=== PATIENT | male | born 1935 | race Caucasian/White ===

== ENCOUNTER 2016-06-04 12:18 | Inpatient (IN) | payer MEDICARE, OTHER ==
--- NOTE | 2016-06-04 12:46 | ERPHSYRPT ---
- History of Present Illness Time Seen by Provider: 06/04/16 12:41 Source: patient Exam Limitations: no limitations Physician History: The patient is a 80-year-old male who was seen today by Dr. Sheppard at [facility] who calls me with history of the patient. The patient has right lower leg infection and swelling for the past 4 months that has become worse over the last [address] SHEPPARD recommends that the patient be hospitalized here at [facility] and be given vancomycin and Zosyn IV for the lower right leg infection. The patient states his leg is much more swollen, red, and warm over the last few days. He denies any fever or chills. His past medical history is significant for stroke, diabetes, hypertension, and high cholesterolemia. Method of Injury: other (cellulitis) Occurred: other (4 months) Quality: other (red and swollen) Severity of Pain-Max: mild Severity of Pain-Current: mild Lower Extremities Pain: foot: right, ankle: right, heel: right, 3rd toe: right, 4th toe: right, 5th toe: right Modifying Factors: Improves With: other (antibiotics) Allergies/Adverse Reactions: No Known Allergies Allergy (Verified 06/04/16 12:43) Home Medications: Gabapentin 0 mg PO UD 06/04/16 [History] Lisinopril 10 mg [Zestril 10 MG] 10 mg PO DAILY 06/04/16 [History] - Review of Systems Constitutional: No Fever, No Chills Eyes: No Symptoms Ears, Nose, & Throat: No Symptoms Respiratory: No Cough, No Dyspnea Cardiac: No Chest Pain, No Edema, No Syncope Abdominal/Gastrointestinal: No Abdominal Pain, No Nausea, No Vomiting, No Diarrhea Genitourinary Symptoms: No Dysuria Musculoskeletal: No Back Pain, No Neck Pain Skin: Cellulitis, Dryness Neurological: No Dizziness, No Focal Weakness, No Sensory Changes Psychological: No Symptoms Endocrine: No Symptoms Hematologic/Lymphatic: No Symptoms Immunological/Allergic: No Symptoms All Other Systems: Reviewed and Negative - Past Medical History Pertinent Past Medical History: Yes Neurological History: Stroke ENT History: No Pertinent History Cardiac History: High Cholesterol, Hypertension Respiratory History: No Pertinent History Endocrine Medical History: Adrenal Insufficiency, Diabetes Type II Musculoskeletal History: No Pertinent History GI Medical History: No Pertinent History History: No Pertinent History Psycho-Social History: No Pertinent History Other Medical History: CVA 10 YEARS AGO W/ MOST SX RESOLVED. PT. ADMITS SOME BALANCE DEFICITS. - Past Surgical History Past Surgical History: No Neuro Surgical History: No Pertinent History Cardiac: No Pertinent History Respiratory: No Pertinent History Gastrointestinal: No Pertinent History Genitourinary: No Pertinent History Musculoskeletal: No Pertinent History Male Surgical History: No Pertinent History - Social History Drug Use: none - Nursing Vital Signs Nursing Vital Signs: Initial Vital Signs Temperature 97.5 F Temperature Source Oral Pulse Rate 90 Respiratory Rate 14 Blood Pressure [Left Arm] 151/68 Pain Intensity 5 - Physical Exam General Appearance: alert Eyes, Ears, Nose, Throat Exam: moist mucous membranes Neck Exam: non-tender, supple Cardiovascular/Respiratory Exam: chest non-tender, normal breath sounds, regular rate/rhythm, no respiratory distress, murmur Gastrointestinal/Abdominal Exam: non-tender, guarding Back Exam: normal inspection, No vertebral tenderness Knees Exam: right knee: pain, soft tissue tenderness, swelling, other (erythema) Ankle Exam: right ankle: limited range of motion, pain, soft tissue tenderness, swelling, other (erythema) Foot Exam: right foot: pain, soft tissue tenderness, swelling Neuro/Tendon Exam: normal sensation, normal motor functions Mental Status Exam: alert, oriented x 3, cooperative Skin Exam: warm, dry, decubitus (open wound at base of right 3rd, 4th, and 5th toes) SpO2 Interpretation: normal SpO2: 94 Oxygen Delivery: Room Air Ordered Tests: Active Orders 24 hr Category Date Time Status IV Insertion STAT Care 06/04/16 12:49 Active BLOOD CULTURE Stat Lab 06/04/16 13:00 Received CBC W DIFF Stat Lab 06/04/16 13:00 Completed CMP Stat Lab 06/04/16 13:00 Completed Lactic Acid Urgent Lab 06/04/16 13:10 Completed UA W/ MICROSCOPIC Stat Lab 06/04/16 13:15 Completed Medication Summary Generic Name Dose Route Start Last Admin Trade Name Freq PRN Reason Stop Dose Admin Sodium Chloride 1,000 mls @ 100 mls/hr 06/04/16 13:00 06/04/16 13:17 Sodium Chloride 0.9% 1000 Ml IV 07/04/16 12:59 100 mls/hr .Q10H AMBERLY Administration Discontinued Medications Generic Name Dose Route Start Last Admin Trade Name Freq PRN Reason Stop Dose Admin Sodium Chloride Confirm 06/04/16 13:16 Sodium Chloride 0.9% 1000 Ml Administered 06/04/16 13:17 Dose 1,000 mls @ .[facility] Lab/Rad Data: Laboratory Result Diagrams 06/04/16 13:00 06/04/16 13:00 Laboratory Results 06/04/16 06/04/16 06/04/16 Range/Units 13:15 13:10 13:00 WBC (4.0-10.5) K/mm3 RBC (4.1-5.6) M/mm3 Hgb (12.5-18.0) gm/dl Hct (42-50) % MCV (78-100) fl MCH (26-32) pg MCHC (32-36) g/dl RDW (11.5-14.0) % Plt Count (150-450) K/mm3 MPV (6-9.5) fl Gran % (36.0-66.0) % Lymphocytes % (24.0-44.0) % Monocytes % (0.0-12.0) % Eosinophils % (0.00-5.0) % Basophils % (0.0-0.4) % Basophils # (0-0.4) Sodium 134 L (136-145) mEq/L Potassium 4.1 (3.5-5.1) mEq/L Chloride 100 (98-107) mEq/L Carbon Dioxide 23.2 (21-32) mEq/L Anion Gap 15.0 (5-15) MEQ/L BUN 28 H (9-20) mg/dL Creatinine 1.78 H (0.55-1.30) mg/dl Estimated GFR 39 ML/MIN Glucose 231 H (70-110) MG/DL Lactic Acid 1.1 (0.4-2.0) Calcium 9.2 (8.5-10.1) mg/dL Total Bilirubin 0.7 (0.2-1.0) mg/dL AST 18 (15-37) U/L ALT 10 L (12-78) U/L Alkaline Phosphatase 85 (46-116) U/L Serum Total Protein 7.2 (6.4-8.2) gm/dL Albumin 3.2 L (3.4-5.0) g/dL Ur Collection Type VOID Urine Color YELLOW (YELLOW) Urine Appearance CLEAR (CLEAR) Urine pH 5.0 (5-6) Ur Specific [place] 1.015 (1.005-1.025) Urine Protein 100 (Negative) Urine Glucose (UA) 100 (NEGATIVE) mg/dL Urine Ketones NEGATIVE (NEGATIVE) Urine Nitrite NEGATIVE (NEGATIVE) Urine Bilirubin SMALL (NEGATIVE) Urine Urobilinogen 0.2 (0-1) mg/dL Urine WBC (Auto) NEGATIVE (NEGATIVE) Urine RBC (Auto) MODERATE (0-5) Pérez/ul Urine Microscopic RBC 2-5 (0-2) /HPF Urine Microscopic WBC 0-2 (0-5) /HPF Ur Epithelial Cells FEW (FEW) /HPF Urine Bacteria FEW (NEGATIVE) /HPF Hyaline Casts 10-25 (0-2) /LPF Specimen Received 06/04/16 1315 06/04/16 Range/Units 13:00 WBC 5.0 (4.0-10.5) K/mm3 RBC 3.85 L (4.1-5.6) M/mm3 Hgb 10.9 L (12.5-18.0) gm/dl Hct 33.7 L (42-50) % MCV 87.5 (78-100) fl MCH 28.3 (26-32) pg MCHC 32.3 (32-36) g/dl RDW 15.1 H (11.5-14.0) % Plt Count 194 (150-450) K/mm3 MPV 9.7 H (6-9.5) fl Gran % 71.0 H (36.0-66.0) % Lymphocytes % 13.5 L (24.0-44.0) % Monocytes % 12.1 H (0.0-12.0) % Eosinophils % 3.0 (0.00-5.0) % Basophils % 0.4 (0.0-0.4) % Basophils # 0.02 (0-0.4) Sodium (136-145) mEq/L Potassium (3.5-5.1) mEq/L Chloride (98-107) mEq/L Carbon Dioxide (21-32) mEq/L Anion Gap (5-15) MEQ/L BUN (9-20) mg/dL Creatinine (0.55-1.30) mg/dl Estimated GFR ML/MIN Glucose (70-110) MG/DL Lactic Acid (0.4-2.0) Calcium (8.5-10.1) mg/dL Total Bilirubin (0.2-1.0) mg/dL AST (15-37) U/L ALT (12-78) U/L Alkaline Phosphatase (46-116) U/L Serum Total Protein (6.4-8.2) gm/dL Albumin (3.4-5.0) g/dL Ur Collection Type Urine Color (YELLOW) Urine Appearance (CLEAR) Urine pH (5-6) Ur Specific [place] (1.005-1.025) Urine Protein (Negative) Urine Glucose (UA) (NEGATIVE) mg/dL Urine Ketones (NEGATIVE) Urine Nitrite (NEGATIVE) Urine Bilirubin (NEGATIVE) Urine Urobilinogen (0-1) mg/dL Urine WBC (Auto) (NEGATIVE) Urine RBC (Auto) (0-5) Pérez/ul Urine Microscopic RBC (0-2) /HPF Urine Microscopic WBC (0-5) /HPF Ur Epithelial Cells (FEW) /HPF Urine Bacteria (NEGATIVE) /HPF Hyaline Casts (0-2) /LPF Specimen Received - Progress Progress: unchanged Discussed with .: Sven Will see patient in: hospital (full admit) (Dr Machuca accepts pt for admission and antibiotics as recommended by Dr Sheppard.) Counseled pt/family regarding: lab results, diagnosis, rad results - Departure Time of Disposition: 14:25 Departure Disposition: In-patient Admission (per Dr Machuca) Clinical Impression: Cellulitis Condition: Stable Critical Care Time: No
[2016-06-04 13:14] LABS: BASOPHIL % 0.4 % (0.0-0.4); Lymphocytes % 13.5 % (24.0-44.0); Mean Cell Volume 87.5 fl (78-100); Mean Corpuscular Hemoglobin 28.3 pg (26-32); Mean Platelet Volume 9.7 fl (6-9.5); Monocytes % 12.1 % (0.0-12.0); Platelet Count 194 K/mm3 (150-450); Red Blood Count 3.85 M/mm3 (4.1-5.6); Red Cell Distribution Width 15.1 % (11.5-14.0)
[2016-06-04] MEDS ORDERED: Sodium Chloride 0.9% 1000 ML 1,000 ML ONE (13:16)
[2016-06-04] MEDS: Sodium Chloride 0.9% 1000 ML 1,000 ML IV SCH ×2 (13:17→15:39)
[2016-06-04 13:34] LABS: ALBUMIN 3.2 g/dL (3.4-5.0); BILIRUBIN,TOTAL 0.7 mg/dL (0.2-1.0); Carbon Dioxide 23.2 mEq/L (21-32); Potassium 4.1 mEq/L (3.5-5.1); Total Protein 7.2 gm/dL (6.4-8.2)
[2016-06-04 13:41] LABS: Bacteria FEW /HPF (NEGATIVE); COMPLETE URINE MICROSCOPIC? YES; Collection Type VOID; Epithelial Cells FEW /HPF (FEW); WBC 0-2 /HPF (0-5)
[2016-06-04] MEDS ORDERED: PHARMACY DOSING REQUIRED: VANCOMYCIN IV ONE (14:53)
[2016-06-04] MEDS ORDERED: TYLENOL 325 MG PO PRN (14:53)
[2016-06-04] MEDS: Zosyn 3.375GM/100 Ml D5W 100 ML IV SCH ×2 (15:39→23:31)
[2016-06-04] MEDS: VANCOCIN 1 GM VIAL*** 1 GM in Sodium Chloride 0.9% 250 ML 250 ML IV SCH (17:04)
[2016-06-04] MEDS: NovoLOG Insulin SQ PRN ×2 (17:34→23:47)
[2016-06-04] MEDS: ULTRAM 50 MG PO PRN (18:28)
[2016-06-04] MEDS: Lantus Insulin SQ SCH (21:16)
[2016-06-04] MEDS: ZOCOR 20MG PO SCH (21:16)
[2016-06-04] MEDS: NEURONTIN 300 MG PO SCH (21:16)
[2016-06-04] MEDS ORDERED: NON-FORMULARY ITEM (Atorvastatin Calcium [Atorvastatin Calcium] 40 MG) PO SCH (22:00)
[2016-06-05 05:20] LABS: BASOPHIL % 0.5 % (0.0-0.4); Eosinophil % 4.7 % (0.00-5.0); Granulocytes % 63.4 % (36.0-66.0); Lymphocytes % 16.9 % (24.0-44.0); Mean Platelet Volume 9.8 fl (6-9.5); Monocytes % 14.5 % (0.0-12.0); Platelet Count 179 K/mm3 (150-450); Red Blood Count 3.47 M/mm3 (4.1-5.6); Red Cell Distribution Width 15.1 % (11.5-14.0); White Blood Count 4.3 K/mm3 (4.0-10.5)
[2016-06-05 05:28] LABS: ANION GAP 12.5 MEQ/L (5-15); Carbon Dioxide 24.7 mEq/L (21-32); Mean Corpuscular Hemoglobin 27.3 pg (26-32); Potassium 3.9 mEq/L (3.5-5.1)
[2016-06-05] MEDS: Sodium Chloride 0.9% 1000 ML 1,000 ML IV SCH (06:04)
[2016-06-05] MEDS: Zosyn 3.375GM/100 Ml D5W 100 ML IV SCH ×4 (06:04→23:40)
[2016-06-05] MEDS ORDERED: Lantus Insulin SQ SCH (08:00)
[2016-06-05] MEDS ORDERED: TYLENOL EXTRA STRENGTH 500 MG PO PRN (08:37)
[2016-06-05] MEDS ORDERED: Zofran 4 MG/2 ML VIAL IV PRN (08:41)
--- NOTE | 2016-06-05 09:20 | HP ---
CHIEF COMPLAINT: Cellulitis right lower extremity. HISTORY OF PRESENT ILLNESS: The patient is a 80 y/o WM patient who reports he developed cellulitis of his right lower extremity. He had been treated outpatient with Cipro for the past 2 days, but he had been getting worse. He was seen by Dr. Sheppard of Infectious Disease at [facility] who felt the patient needed to be admitted for IV antibiotics and referred him here for Zosyn and vancomycin treatment. The patient was initially evaluated in the Emergency Room and admitted to the hospital for the above treatment. PAST MEDICAL HISTORY: Significant for type 2 diabetes mellitus. The patient previously also had a cerebrovascular accident. He has hyperlipidemia. He has had depression. HOME MEDICATIONS: Currently include atorvastatin 40 mg a day, ciprofloxacin 500 mg bid, citalopram 10 mg a day, Plavix 75 mg bid, doxycycline 100 mg bid, Lasix 40 mg a day, gabapentin 600 mg tid. He is on insulin treatments for his diabetes, lisinopril 10 mg a day, metoprolol 150 mg a day, tramadol 50 mg q 4 h PRN for pain. PHYSICAL EXAMINATION: Reveals an elderly WM patient who is currently having rigorous chills and some nausea. His most recent set of vital signs shows a temperature of 97.6, pulse 85, respiratory rate 20, BP 172/74, O2 saturation 94% on room air. HEENT: Normocephalic and atraumatic. Pupils equal, round, and reactive to light. Extraocular movements intact. Oropharynx is pink and moist. NECK: Supple without lymphadenopathy, thyromegaly, or JVD. CHEST: Clear to auscultation. HEART: Regular rate and rhythm without murmurs, rubs, or gallops. ABDOMEN: Soft, nontender, nondistended without hepatosplenomegaly or masses. EXTREMITIES: Revealed the right lower extremity to be swollen, edematous, and dusky. The left is also dusky, but the right also has some cracks in the skin approximately [address] the leg. It is warm and somewhat red. NEURO: The patient is alert and oriented X 3. No focal deficits noted. LABORATORY STUDIES: In the Emergency Room, reveals UA which is essentially normal, although he does have 10-25 hyaline casts. His lactic acid was 1.1. His metabolic panel showed a nonfasting sugar of 231, BUN 28, creatinine 1.78. Sodium was slightly low at 134. His liver enzymes were normal. CBC showed a WBC of 5000, Hgb 10.9, platelet count 194,000. ASSESSMENT: 1. THE PATIENT WITH CELLULITIS, POSSIBLE PENDING SEPSIS. He has been admitted to the hospital. We will discontinue his Cipro and doxycycline and place him on Zosyn and vancomycin. We will obtain blood cultures as well. He has been placed on his usual home medications for his diabetes. We will also obtain a venous Doppler of the right lower extremity as well as arterial Doppler studies of the lower extremities to further assess his vascular status.
[2016-06-05] MEDS: ceLEXa 20 MG PO SCH (09:23)
[2016-06-05] MEDS: PLAVIX 75 MG Tablet PO SCH (09:24)
[2016-06-05] MEDS: Lasix 40 MG PO SCH (09:24)
[2016-06-05] MEDS: Toprol Xl 50 MG PO SCH (09:24)
[2016-06-05] MEDS: Toprol Xl 100 MG PO SCH (09:24)
[2016-06-05] MEDS: NEURONTIN 300 MG PO SCH ×3 (09:25→22:42)
[2016-06-05] MEDS ORDERED: METOPROLOL TARTRATE 150 MG PO SCH (10:00)
[2016-06-05] MEDS ORDERED: Zestril 5 MG PO SCH (10:00)
[2016-06-05] MEDS ORDERED: Zestril 10 MG PO SCH (10:00)
[2016-06-05] MEDS ORDERED: NON-FORMULARY ITEM (Citalopram Hydrobromide [Celexa] 10 MG) PO SCH (10:00)
[2016-06-05] MEDS: ENOXAPARIN SODIUM SQ SCH (10:57)
--- NOTE | 2016-06-05 11:15 | XRAY ---
Indication: Bilateral edema, pain, and redness. Two-dimensional sonogram and color Doppler imaging of the major venous vessels of the left and right leg was performed. Comparison: Right leg venous ultrasound of December 25, 2015. No thrombus seen in the examined deep venous vessels of the left and right leg including greater saphenous vein. Veins demonstrate normal compressibility. Venous waveforms are normal with and without augmentation. Impression: Left and right leg negative for DVT.
--- NOTE | 2016-06-05 11:21 | XRAY ---
Indication: Bilateral edema, pain, and redness. Two-dimensional sonogram and color Doppler imaging of the major arteries of the left and right leg was performed. Comparison: Right leg arterial ultrasound of December 25, 2015. Examination of the right leg again demonstrates scattered mild arteriosclerotic disease in the common femoral, superficial femoral, popliteal, posterior tibial, and dorsal pedal arteries. No critical stenosis or obstruction. Arterial waveforms again monophasic throughout. The posterior tibial and dorsal pedal arterial waveforms are again attenuated. Examination of the left leg also demonstrates scattered minimal/mild arteriosclerotic disease in the common femoral, superficial femoral, popliteal, posterior tibial, and dorsal pedal arteries without critical stenosis/obstruction. Arterial waveforms are multiphasic in the common femoral, superficial femoral, and popliteal arteries and monophasic in the posterior tibial and dorsal pedal arteries. Ankle brachial indices not performed due to bilateral cellulitis and patient inability to tolerate. Impression: Scattered arteriosclerotic disease, right leg greater than left. No critical stenosis/obstruction.
[2016-06-05] MEDS: VANCOCIN 1 GM VIAL*** 1 GM in Sodium Chloride 0.9% 250 ML 250 ML IV SCH (16:42)
[2016-06-05] MEDS: NovoLOG Insulin SQ PRN ×2 (16:43→22:52)
[2016-06-05] MEDS: ZOCOR 20MG PO SCH (22:42)
[2016-06-05] MEDS: Lantus Insulin SQ SCH (22:44)
[2016-06-06] MEDS: Zosyn 3.375GM/100 Ml D5W 100 ML IV SCH ×4 (05:17→23:54)
[2016-06-06 05:57] LABS: BASOPHIL % 0.3 % (0.0-0.4); Granulocytes % 67.8 % (36.0-66.0); Lymphocytes % 17.3 % (24.0-44.0); Mean Cell Volume 89.1 fl (78-100); Mean Corpuscular Hemoglobin 28.5 pg (26-32); Mean Platelet Volume 9.6 fl (6-9.5); Monocytes % 10.6 % (0.0-12.0); Platelet Count 193 K/mm3 (150-450); White Blood Count 6.5 K/mm3 (4.0-10.5)
[2016-06-06 06:20] LABS: ALBUMIN 2.5 g/dL (3.4-5.0); ALKALINE PHOSPHATASE 63 U/L (46-116); ANION GAP 9.6 MEQ/L (5-15); BILIRUBIN,TOTAL 0.4 mg/dL (0.2-1.0); BLOOD UREA NITROGEN 18 mg/dL (9-20); CHLORIDE 107 mEq/L (98-107); Carbon Dioxide 28.5 mEq/L (21-32); Potassium 4.1 mEq/L (3.5-5.1); SGOT/AST 13 U/L (15-37); SODIUM 141 mEq/L (136-145); Total Protein 6.1 gm/dL (6.4-8.2)
[2016-06-06 07:19] LABS: Glucose 37 MG/DL (70-110); SGPT/ALT < 6 U/L (12-78)
--- NOTE | 2016-06-06 08:41 | PCM.NOTE ---
Date and Time: 06/06/16 0835 Subjective Assessment: He reports on last Wednesday he had a fall at home that resulted in the skin tears of his right elbow. he states that his right leg is improving as the color is better and it is not as swollen. He saw his infectious disease doctor, Dr. Sheppard, on Wednesday. He reports he rarely takes short acting insulin at home but does take the lantus. He thinks his diet is different here. He has now had hypoglycemia two mornings in a row. He is alert and talkative and the nurses say he was asymptomatic. At home he takes lantus two times a day. - Review of Systems Constitutional: No Symptoms Eyes: No Symptoms Respiratory: No Symptoms Cardiac: No Symptoms Abdominal/Gastrointestinal: No Symptoms Genitourinary Symptoms: No Symptoms Musculoskeletal: No Symptoms Skin: Cellulitis, Other (swelling and tenderness of right lower leg and foot and erythema also) Objective Exam General Appearance: no apparent distress, alert Neurologic Exam: alert, cooperative, normal mood/affect Skin Exam: normal color, warm, dry, other (swelling and redness of his legs with worse swelling of right, dressing on dorsal aspect of his toes, no active induration or drainage.) Eye Exam: post op pupil defect (L) OBJECTIVE DATA Vital Signs: Vital Signs - 24 hr Temp Pulse Resp BP Pulse Ox 06/06/16 07:29 98.2 F 74 22 168/88 95 06/06/16 04:59 98.1 F 63 16 186/86 94 L 06/06/16 00:07 97.7 F 76 16 175/71 94 L 06/05/16 21:00 97.8 F 76 15 139/62 94 L 06/05/16 15:57 98 F 68 20 108/56 97 06/05/16 12:49 98.1 F 70 20 106/50 95 Oxygen-Last 24 hours O2 Percentage 2 Liters = 28% O2 Percentage 2 Liters = 28% Pain Assessment - Last Documented Pain Intensity 0 Pain Scale Used 0-10 Pain Scale Intake and Output: Intake & Output 06/04/16 06/05/16 06/06/16 06/07/16 06:59 06:59 06:59 07:59 Intake Total 1209 3081 Output Total 475 1000 Balance 734 2081 Weight 99.337 kg Lab Results: Accuchecks Date 06/05/16 Accucheck Value: 204 Accucheck Value: 208 Accucheck Value: 190 Lab Results-Last 24 Hours 06/06/16 06/06/16 Range/Units 05:45 05:45 WBC 6.5 (4.0-10.5) K/mm3 RBC 3.40 L (4.1-5.6) M/mm3 Hgb 9.7 L (12.5-18.0) gm/dl Hct 30.3 L (42-50) % MCV 89.1 (78-100) fl MCH 28.5 (26-32) pg MCHC 32.0 (32-36) g/dl RDW 15.0 H (11.5-14.0) % Plt Count 193 (150-450) K/mm3 MPV 9.6 H (6-9.5) fl Gran % 67.8 H (36.0-66.0) % Lymphocytes % 17.3 L (24.0-44.0) % Monocytes % 10.6 (0.0-12.0) % Eosinophils % 4.0 (0.00-5.0) % Basophils % 0.3 (0.0-0.4) % Basophils # 0.02 (0-0.4) Sodium 141 (136-145) mEq/L Potassium 4.1 (3.5-5.1) mEq/L Chloride 107 (98-107) mEq/L Carbon Dioxide 28.5 (21-32) mEq/L Anion Gap 9.6 (5-15) MEQ/L BUN 18 (9-20) mg/dL Creatinine 1.43 H (0.55-1.30) mg/dl Estimated GFR 51 ML/MIN Glucose 37 L* (70-110) MG/DL Calcium 8.8 (8.5-10.1) mg/dL Total Bilirubin 0.4 (0.2-1.0) mg/dL AST 13 L (15-37) U/L ALT < 6 L (12-78) U/L Alkaline Phosphatase 63 (46-116) U/L Serum Total Protein 6.1 L (6.4-8.2) gm/dL Albumin 2.5 L (3.4-5.0) g/dL Radiology Exams: Radiology Procedures Category Date Time Status ARTERIAL BILAT LOWER EXTREMITY [US] Urgent Exams 06/05/16 08:39 Completed VENOUS BILATERAL EXTREMITY [US] Urgent Exams 06/05/16 08:38 Completed Assessment/Plan (1) Cellulitis of foot, right Current Visit: Yes Status: Acute Assessment & Plan: Continue zosyn and Vanc Day 3. Slowly improving. Code(s): L03.115 - CELLULITIS OF RIGHT LOWER LIMB (2) Diabetes type 2, controlled Current Visit: Yes Status: Acute Qualifiers: Diabetes mellitus complication status: with skin complications Diabetes mellitus complication detail: with other skin complication Diabetes mellitus long term care phlebotomist insulin use: with long term care phlebotomist use Qualified Code(s): E11.628 - Type 2 diabetes mellitus with other skin complications; Z79.4 - nursing home (current) use of insulin Assessment & Plan: He has had hypoglycemia two mornings in a row. Stop lantus in the AM and continue lantus in the PM. Add short acting insulin at low dose with meals and continue low dose sliding scale if needed. Will check hgb A1C if not done in the past 3 months. Code(s): E11.9 - TYPE 2 DIABETES MELLITUS WITHOUT COMPLICATIONS (3) Anemia Current Visit: Yes Status: Acute Qualifiers: Anemia type: unspecified type Qualified Code(s): D64.9 - Anemia, unspecified Assessment & Plan: Will check iron studies and Vit B 12 levels. Code(s): D64.9 - ANEMIA, UNSPECIFIED (4) Hypertension Current Visit: Yes Status: Acute Assessment & Plan: Will increase lisinopril form 5 mg to 10 mg and recheck bmp in AM. Code(s): I10 - ESSENTIAL (PRIMARY) HYPERTENSION
[2016-06-06] MEDS: Toprol Xl 100 MG PO SCH (10:16)
[2016-06-06] MEDS: ceLEXa 20 MG PO SCH (10:16)
[2016-06-06] MEDS: ENOXAPARIN SODIUM SQ SCH (10:16)
[2016-06-06] MEDS: NEURONTIN 300 MG PO SCH ×3 (10:16→22:51)
[2016-06-06] MEDS: Lasix 40 MG PO SCH (10:17)
[2016-06-06] MEDS: PLAVIX 75 MG Tablet PO SCH (10:17)
[2016-06-06] MEDS: Toprol Xl 50 MG PO SCH (10:17)
[2016-06-06] MEDS: Zestril 5 MG PO SCH (10:19)
[2016-06-06] MEDS: Sodium Chloride 0.9% 1000 ML 1,000 ML IV SCH (10:43)
[2016-06-06] MEDS: NovoLOG Insulin SQ SCH ×2 (13:45→18:01)
[2016-06-06] MEDS: ULTRAM 50 MG PO PRN (14:04)
[2016-06-06] MEDS: FEOSOL 325 MG PO SCH ×2 (15:10→22:51)
[2016-06-06] MEDS: VANCOCIN 1 GM VIAL*** 1 GM in Sodium Chloride 0.9% 250 ML 250 ML IV SCH (18:01)
[2016-06-06] MEDS: ZOCOR 20MG PO SCH (22:51)
[2016-06-06] MEDS: Lantus Insulin SQ SCH (22:53)
[2016-06-06] MEDS: NovoLOG Insulin SQ PRN (22:53)
[2016-06-07] MEDS: Zosyn 3.375GM/100 Ml D5W 100 ML IV SCH ×4 (05:11→22:56)
[2016-06-07 05:28] LABS: BASOPHIL % 0.7 % (0.0-0.4); Eosinophil % 7.5 % (0.00-5.0); Granulocytes % 54.8 % (36.0-66.0); Lymphocytes % 25.1 % (24.0-44.0); Mean Cell Volume 88.3 fl (78-100); Mean Corpuscular Hemoglobin 27.6 pg (26-32); Mean Platelet Volume 9.3 fl (6-9.5); Monocytes % 11.9 % (0.0-12.0); Platelet Count 200 K/mm3 (150-450); Red Blood Count 3.51 M/mm3 (4.1-5.6); Red Cell Distribution Width 14.7 % (11.5-14.0)
[2016-06-07] MEDS: NovoLOG Insulin SQ SCH ×3 (07:43→16:51)
[2016-06-07 08:07] LABS: Carbon Dioxide 27.1 mEq/L (21-32); Potassium 3.7 mEq/L (3.5-5.1)
[2016-06-07] MEDS: Toprol Xl 100 MG PO SCH (09:09)
[2016-06-07] MEDS: ceLEXa 20 MG PO SCH (09:09)
[2016-06-07] MEDS: Lasix 40 MG PO SCH (09:10)
[2016-06-07] MEDS: PLAVIX 75 MG Tablet PO SCH (09:10)
[2016-06-07] MEDS: FEOSOL 325 MG PO SCH ×3 (09:10→22:48)
[2016-06-07] MEDS: NEURONTIN 300 MG PO SCH ×3 (09:10→22:48)
[2016-06-07] MEDS: Toprol Xl 50 MG PO SCH (09:10)
[2016-06-07] MEDS: Zestril 5 MG PO SCH (09:10)
[2016-06-07] MEDS: ENOXAPARIN SODIUM SQ SCH (09:11)
--- NOTE | 2016-06-07 10:57 | PCM.NOTE ---
Date and Time: 06/07/16 1053 Subjective Assessment: Even with decreasing his lantus to only 1/4 of what he takes at home, his blood glucose was low this AM. He reports his right leg continues to be painful and red but not as swollen. - Review of Systems Constitutional: No Symptoms Eyes: No Symptoms Ears, Nose, & Throat: No Symptoms Respiratory: No Symptoms Cardiac: No Symptoms Abdominal/Gastrointestinal: No Symptoms Genitourinary Symptoms: No Symptoms Musculoskeletal: Other (right leg pain) Skin: Cellulitis Objective Exam General Appearance: no apparent distress, alert Neurologic Exam: alert, cooperative, normal mood/affect, other (smiling, talktaive) Respiratory Exam: normal breath sounds, lungs clear, No crackles/rales, No rhonchi, No wheezing Cardiovascular Exam: regular rate/rhythm, normal heart sounds, No murmur, No friction rub, No gallop Gastrointestinal/Abdomen Exam: soft, normal bowel sounds, No tenderness, No distention, No mass, No guarding Extremity Exam: other (mild erythema of legs bilat, trace edema, excoriations on right leg, dressing around toes.) OBJECTIVE DATA Vital Signs: Vital Signs - 24 hr Temp Pulse Resp BP Pulse Ox 06/07/16 09:34 93 L 06/07/16 07:48 93 L 06/07/16 07:42 98.2 F 66 18 126/54 94 L 06/07/16 04:21 98.1 F 60 15 150/67 93 L 06/07/16 00:00 98.6 F 62 15 194/80 96 06/06/16 20:17 98.1 F 64 15 188/81 94 L 06/06/16 16:45 97.4 F 67 20 148/76 96 06/06/16 14:43 96 06/06/16 11:32 97.7 F 60 20 160/79 96 Pain Assessment - Last Documented Pain Intensity 0 Pain Scale Used 0-10 Pain Scale Intake and Output: Intake & Output 06/05/16 06/06/16 06/07/16 06/08/16 05:59 05:59 06:59 06:59 Intake Total 580 Output Total Balance 580 Weight Lab Results: Accuchecks Date 06/06/16 Accucheck Value: 48 Accucheck Value: 204 Accucheck Value: 254 Accucheck Value: 121 Lab Results-Last 24 Hours 06/06/16 06/07/16 06/07/16 Range/Units 05:20 05:26 05:26 WBC 4.0 (4.0-10.5) K/mm3 RBC 3.51 L (4.1-5.6) M/mm3 Hgb 9.7 L (12.5-18.0) gm/dl Hct 31.0 L (42-50) % MCV 88.3 (78-100) fl MCH 27.6 (26-32) pg MCHC 31.3 L (32-36) g/dl RDW 14.7 H (11.5-14.0) % Plt Count 200 (150-450) K/mm3 MPV 9.3 (6-9.5) fl Gran % 54.8 (36.0-66.0) % Lymphocytes % 25.1 (24.0-44.0) % Monocytes % 11.9 (0.0-12.0) % Eosinophils % 7.5 H (0.00-5.0) % Basophils % 0.7 (0.0-0.4) % Basophils # 0.03 (0-0.4) Sodium 139 (136-145) mEq/L Potassium 3.7 (3.5-5.1) mEq/L Chloride 105 (98-107) mEq/L Carbon Dioxide 27.1 (21-32) mEq/L Anion Gap 11.0 (5-15) MEQ/L BUN 14 (9-20) mg/dL Creatinine 1.26 (0.55-1.30) mg/dl Estimated GFR 59 ML/MIN Glucose 44 L* (70-110) MG/DL Calcium 8.8 (8.5-10.1) mg/dL Iron 15 L (50-175) ug/dl TIBC 177 L (250-450) ug/dl Iron Saturation 8.5 L (20-39) % Assessment/Plan (1) Cellulitis of foot, right Current Visit: Yes Status: Acute Assessment & Plan: Continue zosyn and vancomycin Day 4. Code(s): L03.115 - CELLULITIS OF RIGHT LOWER LIMB (2) Diabetes type 2, controlled Current Visit: Yes Status: Acute Qualifiers: Diabetes mellitus complication status: with skin complications Diabetes mellitus complication detail: with other skin complication Diabetes mellitus oil heaterman insulin use: with detention use Qualified Code(s): E11.628 - Type 2 diabetes mellitus with other skin complications; Z79.4 - oil heaterman (current) use of insulin Assessment & Plan: Stop all lantus and continue with novolog 4 units with meals. Code(s): E11.9 - TYPE 2 DIABETES MELLITUS WITHOUT COMPLICATIONS (3) Anemia Current Visit: Yes Status: Acute Qualifiers: Anemia type: iron deficiency Assessment & Plan: Iron studies were checked and his iron is low so ferrous sulfate was started yesterday. Code(s): D64.9 - ANEMIA, UNSPECIFIED (4) Hypertension Current Visit: Yes Status: Acute Assessment & Plan: Well controlled. Code(s): I10 - ESSENTIAL (PRIMARY) HYPERTENSION
[2016-06-07] MEDS: VANCOCIN 1 GM VIAL*** 1 GM in Sodium Chloride 0.9% 250 ML 250 ML IV SCH (16:03)
[2016-06-07] MEDS: NovoLOG Insulin SQ PRN ×3 (16:50→22:58)
[2016-06-07] MEDS: ZOCOR 20MG PO SCH (22:48)
[2016-06-08] MEDS: Zosyn 3.375GM/100 Ml D5W 100 ML IV SCH ×4 (06:52→19:09)
[2016-06-08] MEDS: NovoLOG Insulin SQ SCH ×3 (08:08→17:04)
[2016-06-08] MEDS ORDERED: Sodium Chloride 0.9% 10 ML FLUSH Syringe IV PRN (08:21)
[2016-06-08] MEDS: ceLEXa 20 MG PO SCH (08:58)
[2016-06-08] MEDS: Toprol Xl 50 MG PO SCH (08:59)
[2016-06-08] MEDS: NEURONTIN 300 MG PO SCH ×3 (08:59→21:53)
[2016-06-08] MEDS: Toprol Xl 100 MG PO SCH (08:59)
[2016-06-08] MEDS: ENOXAPARIN SODIUM SQ SCH (08:59)
[2016-06-08] MEDS: PLAVIX 75 MG Tablet PO SCH (08:59)
[2016-06-08] MEDS: Lasix 40 MG PO SCH (08:59)
[2016-06-08] MEDS: FEOSOL 325 MG PO SCH ×3 (08:59→21:53)
[2016-06-08] MEDS: Zestril 5 MG PO SCH (08:59)
[2016-06-08] MEDS: NovoLOG Insulin SQ PRN ×2 (12:15→21:54)
[2016-06-08] MEDS: Sodium Chloride 0.9% 10 ML FLUSH Syringe IV SCH ×2 (14:07→21:54)
[2016-06-08] MEDS: ULTRAM 50 MG PO PRN (16:25)
[2016-06-08] MEDS ORDERED: VANCOCIN 1 GM VIAL*** 0.75 GM in Sodium Chloride 0.9% 250 ML 250 ML IV SCH (17:00)
[2016-06-08] MEDS: ZOCOR 20MG PO SCH (21:53)
[2016-06-09] MEDS: Zosyn 3.375GM/100 Ml D5W 100 ML IV SCH ×2 (00:36→06:18)
[2016-06-09 05:49] LABS: Mean Cell Volume 87.7 fl (78-100); Mean Platelet Volume 9.4 fl (6-9.5); Platelet Count 219 K/mm3 (150-450); Red Blood Count 3.74 M/mm3 (4.1-5.6); Red Cell Distribution Width 14.5 % (11.5-14.0); White Blood Count 3.5 K/mm3 (4.0-10.5)
[2016-06-09 05:51] LABS: Mean Corpuscular Hemoglobin 28.8 pg (26-32)
[2016-06-09 06:02] LABS: ANION GAP 12.4 MEQ/L (5-15); Carbon Dioxide 28.9 mEq/L (21-32); Potassium 4.5 mEq/L (3.5-5.1)
[2016-06-09] MEDS: Sodium Chloride 0.9% 10 ML FLUSH Syringe IV SCH (06:18)
--- NOTE | 2016-06-09 07:06 | PCM.DCORD ---
- Discharge Discharge Date: 06/09/16 Disposition: Home, Self-Care Condition: Stable Prescriptions: Continue Gabapentin 600 mg PO TID Lisinopril 10 mg [Zestril 10 MG] 5 mg PO DAILY Doxycycline Hyclate 100 mg PO BID Ciprofloxacin HCl [Cipro] 500 mg PO BID Citalopram Hydrobromide [Celexa] 10 mg PO DAILY Metoprolol Tartrate 150 mg PO DAILY Tramadol HCl 50 mg [Ultram 50 mg] 50 mg PO Q8HPRN PRN PRN Reason: Pain Furosemide 40 mg [Lasix 40 MG] 40 mg PO DAILY Insulin Glargine [Lantus Insulin] 38 unit SQ BREAKFAST Clopidogrel Bisulfate 75 mg [PLAVIX 75 MG Tablet] 75 mg PO DAILY Atorvastatin Calcium 40 mg PO HS Insulin Glargine [Lantus Insulin] 34 unit SQ HS Insulin Aspart [Novolog Flexpen] 0 unit SQ ACHS Instructions: Cellulitis -- Adult Additional Instructions: Please follow up in one week with family doctor and take prescribed cipro until gone. Please fill your prescription for Iron and take as prescribed. Follow up with: MELISSA ALVARES [Primary Care Provider] - 1 Week
[2016-06-09 07:33] VITALS: O2SAT 94
[2016-06-09] MEDS: NovoLOG Insulin SQ SCH ×2 (07:48→12:58)
[2016-06-09] MEDS: Toprol Xl 50 MG PO SCH (10:06)
[2016-06-09] MEDS: Toprol Xl 100 MG PO SCH (10:06)
[2016-06-09] MEDS: NEURONTIN 300 MG PO SCH (10:07)
[2016-06-09] MEDS: FEOSOL 325 MG PO SCH (10:07)
[2016-06-09] MEDS: Lasix 40 MG PO SCH (10:07)
[2016-06-09] MEDS: PLAVIX 75 MG Tablet PO SCH (10:07)
[2016-06-09] MEDS: ENOXAPARIN SODIUM SQ SCH (10:08)
[2016-06-09] MEDS: ceLEXa 20 MG PO SCH (10:09)
[2016-06-09] MEDS: Zestril 5 MG PO SCH (10:18)
[2016-06-09 11:43] VITALS: BP 142/62; PULSE 62
[2016-06-09] MEDS: NovoLOG Insulin SQ PRN (12:58)
--- NOTE | 2016-06-09 13:12 | DS ---
DISCHARGE DIAGNOSIS: CELLULITIS RIGHT LOWER EXTREMITY. HISTORY: The patient is a 80 year-old white male patient who had been taken care of at [facility] Infectious Disease physician, Dr. Tegan Sheppard who noted that the patient had increased swelling and redness of his right lower extremity. He had been treated with outpatient ciprofloxacin but was not improving. He was felt the need to have admission to the hospital for IV antibiotic therapy of Zosyn and Vancomycin as specifically requested by Dr. Sheppard. HOSPITAL COURSE: The patient was admitted to the medicine [facility] and began on the above medications. On the first evaluation the patient did have a swollen, tender, red and warm right lower extremity. We did venous Doppler examinations which were negative for deep venous thrombosis. We did show improvement in his leg each day to the point that on 06/09/2016 the patient was felt to be back to his normal state of health. The patient was essentially afebrile throughout his stay. His laboratory studies showed his BUN to be 22 and creatinine 1.36. His electrolytes were normal. Liver enzymes were normal. His white blood cell count showed hemoglobin 9.7, white blood cell count 6,500, PLT 193,000. We did do iron studies on him since he was somewhat anemic and it showed his iron saturation to be 8.5. Total iron binding capacity 177 and iron 15. The patient's cultures were negative. He did have arterial Doppler studies done as well which showed scattered arteriosclerotic disease right greater than left with no critical stenosis noted. DISCHARGE PLAN: The patient will be discharged home on the ciprofloxacin that he was on prior to his admission to the hospital. He had only taken two days of the medication prior to that time. He will resume his other home medications otherwise which included atorvastatin 40 mg a day, Celexa 10 mg a day, Plavix 75 mg daily, Lasix 40 mg daily, gabapentin 600 mg t.i.d. He is on insulin, Lantus 34 units at night and 38 units in the morning. He is on lispinopril 10 mg a day, metoprolol 150 mg a day and tramadol 50 mg PRN for pain. We will make an appointment for him to see Dr. Sheppard in follow up in the oncoming week. He is to return to the hospital or call us if he has further problems in the interim.
== END 2016-06-09 13:30 | disposition home or self-care (01) | DRG 603 ==
LOC: ED 12:18 → MED SURG 14:47
PROVIDERS: ADMIT Family Medicine; ATTEND Family Medicine
DX: L03.115 Cellulitis of right lower limb (principal); E11.628 Type 2 diabetes mellitus with other skin complications; Z79.4 Long term (current) use of insulin; Z86.73 Personal history of transient ischemic attack (TIA), and cerebral infarction without residual deficits; E78.5 Hyperlipidemia, unspecified; F32.9 Major depressive disorder, single episode, unspecified; D64.9 Anemia, unspecified; I10 Essential (primary) hypertension; M79.662 Pain in left lower leg; M79.661 Pain in right lower leg; Z79.899 Other long term (current) drug therapy
CPT/HCPCS: 36000; 36415; 80048; 80053; 80202; 81000; 82607; 82728; 82962; 83540; 83550; 83605; 85025; 85027; 87040; 93925; 93970; 94760; 96360; 99284; J1650; J2543; J3370

== ENCOUNTER 2016-07-23 08:46 | Emergency (ER) | payer MEDICARE, OTHER ==
[2016-07-23 09:18] LABS: BASOPHIL % 0.2 % (0.0-0.4); Eosinophil % 0.9 % (0.00-5.0); Granulocytes % 75.5 % (36.0-66.0); Lymphocytes % 13.4 % (24.0-44.0); Mean Cell Volume 88.4 fl (78-100); Mean Platelet Volume 9.6 fl (6-9.5); Platelet Count 185 K/mm3 (150-450); Red Blood Count 4.22 M/mm3 (4.1-5.6); Red Cell Distribution Width 14.7 % (11.5-14.0); White Blood Count 5.3 K/mm3 (4.0-10.5)
[2016-07-23 09:21] LABS: Mean Corpuscular Hemoglobin 28.6 pg (26-32)
[2016-07-23 09:35] LABS: ALBUMIN 3.4 g/dL (3.4-5.0); ALKALINE PHOSPHATASE 84 U/L (46-116); ANION GAP 14.1 MEQ/L (5-15); BILIRUBIN,TOTAL 0.5 mg/dL (0.2-1.0); BLOOD UREA NITROGEN 19 mg/dL (9-20); CHLORIDE 104 mEq/L (98-107); Carbon Dioxide 26.6 mEq/L (21-32); Glucose 67 MG/DL (70-110); Potassium 3.8 mEq/L (3.5-5.1); SGOT/AST 38 U/L (15-37); SGPT/ALT 19 U/L (12-78); SODIUM 141 mEq/L (136-145); Total Protein 7.4 gm/dL (6.4-8.2)
[2016-07-23] MEDS ORDERED: Lantus Insulin SQ ONE (10:07)
--- NOTE | 2016-07-23 10:18 | ERPHSYRPT ---
- History of Present Illness Time Seen by Provider: 07/23/16 08:51 Source: patient, family (daughter), EMS Patient Subjective Stated Complaint: pt here for low bs at home, bs was 39 and given d25 per ambulance.this has happened twice in last 2 days Triage Nursing Assessment: pt alert, resp easy. skin w/d pink. 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 He is on insulin for diabetes. He is taking lantus 40 units AM/ 34 units PM. He is on novolog flex pen sliding scale before meal. recently . He has not been eating as well as usual. He is gardening and working outside this spring. Yesterday AM he was found with low sugar which improved after EMS arrived. Daughter told him not to take his insulin but he took it anyway. This AM she checked on him and found him confused and sugar low again. No injury. He was brought to ER by EMS. He was given D25 en route and improved. Inital EMS accu check was in 30s. Allergies/Adverse Reactions: No Known Allergies Allergy (Verified 07/23/16 08:48) Home Medications: Atorvastatin Calcium 40 mg PO HS 06/04/16 [History] Citalopram Hydrobromide [Celexa] 10 mg PO DAILY 06/04/16 [History] Clopidogrel Bisulfate 75 mg [PLAVIX 75 MG Tablet] 75 mg PO DAILY 06/04/16 [History] Furosemide 40 mg [Lasix 40 MG] 40 mg PO DAILY 06/04/16 [History] Gabapentin 600 mg PO TID 06/04/16 [History] Insulin Aspart [Novolog Flexpen] 0 unit SQ ACHS 06/04/16 [History] Insulin Glargine [Lantus Insulin] 34 unit SQ HS 06/04/16 [History] Insulin Glargine [Lantus Insulin] 38 unit SQ BREAKFAST 06/04/16 [History] Lisinopril 10 mg [Zestril 10 MG] 5 mg PO DAILY 06/04/16 [History] Metoprolol Tartrate 150 mg PO DAILY 06/04/16 [History] Tramadol HCl 50 mg [Ultram 50 mg] 50 mg PO Q8HPRN PRN 06/04/16 [History] Hx Tetanus, Diphtheria Vaccination/Date Given: Yes Hx Influenza Vaccination/Date Given: Yes Hx Pneumococcal Vaccination/Date Given: Yes Immunizations Up to Date: Yes - Review of Systems Constitutional: No Fever, No Chills Eyes: No Symptoms Ears, Nose, & Throat: No Symptoms Respiratory: No Cough Cardiac: No Chest Pain Abdominal/Gastrointestinal: No Abdominal Pain Musculoskeletal: No Back Pain, No Neck Pain Skin: No Rash Neurological: No Headache All Other Systems: Reviewed and Negative - Past Medical History Pertinent Past Medical History: Yes Neurological History: Stroke ENT History: No Pertinent History Cardiac History: High Cholesterol, Hypertension Respiratory History: No Pertinent History Endocrine Medical History: Adrenal Insufficiency, Diabetes Type II Musculoskeletal History: No Pertinent History GI Medical History: No Pertinent History History: Other Psycho-Social History: No Pertinent History Male Reproductive Disorders: No Pertinent History Other Medical History: CVA 10 YEARS AGO W/ MOST SX RESOLVED. PT. ADMITS SOME BALANCE DEFICITS. 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%" - Past Surgical History Past Surgical History: No Neuro Surgical History: No Pertinent History Cardiac: No Pertinent History Respiratory: No Pertinent History Gastrointestinal: No Pertinent History Genitourinary: No Pertinent History Musculoskeletal: No Pertinent History Male Surgical History: No Pertinent History - Social History Smoking Status: Never smoker Exposure to second hand smoke: No Drug Use: none Patient Lives Alone: Yes (recent ) - Nursing Vital Signs Nursing Vital Signs: Initial Vital Signs Temperature 97.2 F Temperature Source Oral Pulse Rate 73 Respiratory Rate 16 Blood Pressure [Left Thigh] 159/75 Pain Intensity 0 - Physical Exam General Appearance: alert Eye Exam: PERRL/EOMI Ears, Nose, Throat Exam: normal ENT inspection, moist mucous membranes Neck Exam: normal inspection, non-tender, supple Respiratory Exam: normal breath sounds, lungs clear Cardiovascular Exam: regular rate/rhythm Gastrointestinal/Abdomen Exam: soft, No tenderness, No distention Extremity Exam: normal inspection, normal range of motion Neurologic Exam: alert, oriented x 3, cooperative, sensation nml, No motor deficits Skin Exam: warm, dry, No rash SpO2 Interpretation: normal SpO2: 97 Oxygen Delivery: Room Air - Course Nursing assessment & vital signs reviewed: Yes Ordered Tests: Active Orders 24 hr Category Date Time Status ACCUCHECK [Accucheck] STAT Care 07/23/16 08:59 Active Accucheck STAT Care 07/23/16 10:06 Active Clean Catch Urine Specimen STAT Care 07/23/16 10:05 Active 2000 Calorie ADA Diet 07/23/16 Breakfast Active CBC W DIFF Stat Lab 07/23/16 09:07 Completed CMP Stat Lab 07/23/16 09:07 Completed UA Stat Lab 07/23/16 10:06 Ordered Lab/Rad Data: Laboratory Result Diagrams 07/23/16 09:07 07/23/16 09:07 Laboratory Results 07/23/16 07/23/16 Range/Units 09:07 09:07 WBC 5.3 (4.0-10.5) K/mm3 RBC 4.22 (4.1-5.6) M/mm3 Hgb 12.1 L (12.5-18.0) gm/dl Hct 37.3 L (42-50) % MCV 88.4 (78-100) fl MCH 28.6 (26-32) pg MCHC 32.4 (32-36) g/dl RDW 14.7 H (11.5-14.0) % Plt Count 185 (150-450) K/mm3 MPV 9.6 H (6-9.5) fl Gran % 75.5 H (36.0-66.0) % Lymphocytes % 13.4 L (24.0-44.0) % Monocytes % 10.0 (0.0-12.0) % Eosinophils % 0.9 (0.00-5.0) % Basophils % 0.2 (0.0-0.4) % Basophils # 0.01 (0-0.4) Sodium 141 (136-145) mEq/L Potassium 3.8 (3.5-5.1) mEq/L Chloride 104 (98-107) mEq/L Carbon Dioxide 26.6 (21-32) mEq/L Anion Gap 14.1 (5-15) MEQ/L BUN 19 (9-20) mg/dL Creatinine 1.15 (0.55-1.30) mg/dl Estimated GFR > 60 ML/MIN Glucose 67 L (70-110) MG/DL Calcium 9.3 (8.5-10.1) mg/dL Total Bilirubin 0.5 (0.2-1.0) mg/dL AST 38 H (15-37) U/L ALT 19 (12-78) U/L Alkaline Phosphatase 84 (46-116) U/L Serum Total Protein 7.4 (6.4-8.2) gm/dL Albumin 3.4 (3.4-5.0) g/dL - Progress Progress Note: 07/23/16 10:19 He ate a meal on arrival. Only identifiable cause is insulin, working in garden and poor meals. Advised decrase lantus, regular meals, meals on wheels referral made, bedtime snack, and check sugar in night time next two nights. A1C ordered. Will follow up next week with MASON Torres. Counseled pt/family regarding: lab results, diagnosis, need for follow-up - Departure Time of Disposition: 10:20 Departure Disposition: Home Clinical Impression: Hypoglycemia due to type 2 diabetes mellitus Condition: Stable Critical Care Time: No Referrals: MELISSA TORRES [Primary Care Provider] - Instructions: Hypoglycemia Additional Instructions: Decrease lantus to 20 units twice a day. You had your morning lantus here this AM. Eat regular meals. Eat bedtime snack. Follow up with MASON Torres next week. Check night time sugar next two nights and eat snack if needed.
[2016-07-23 10:25] LABS: Bacteria FEW /HPF (NEGATIVE); COMPLETE URINE MICROSCOPIC? YES; Collection Type CCMS; Epithelial Cells FEW /HPF (FEW); WBC 0-2 /HPF (0-5)
[2016-07-23 10:41] VITALS: BP 143/80; PULSE 72; O2SAT 96
== END 2016-07-23 10:41 | disposition home or self-care (01) ==
LOC: ED 08:46
DX: E11.649 Type 2 diabetes mellitus with hypoglycemia without coma (principal); Z79.4 Long term (current) use of insulin; Z79.899 Other long term (current) drug therapy; E78.00 Pure hypercholesterolemia, unspecified; I10 Essential (primary) hypertension
CPT/HCPCS: 36415; 80053; 81000; 82962; 83036; 85025; 96372; 99285; A9270-GY

== ENCOUNTER 2017-04-08 21:33 | Inpatient (IN) | payer MEDICARE, OTHER ==
[2017-04-08] MEDS ORDERED: TENIVAC VIAL IM ONE ×2 (22:17→23:20)
--- NOTE | 2017-04-08 22:24 | ERPHSYRPT ---
- History of Present Illness Time Seen by Provider: 04/08/17 22:10 Source: patient, other (daughter) Exam Limitations: other (confusion) Patient Subjective Stated Complaint: Dizzy Triage Nursing Assessment: Falls x2 today, states he did not lose consciousness. Pt states he has been dizzy x3 days, worsening today. Pt states he attempted to move a rug with his foot when he fell. Pt in no distress, states only pain is coccyx. A&O x3. Physician History: According to patient's daughter, he has been dizzy for the last 3 days, fell twice today, first at 10:30 AM, second time in the bathroom at 15:00 PM. He hit the back of his head first, and sustained minor injuries to his left ring finger nail and both elbows. Pt states he has a full recollection of his 2 falls today, denies severe headaches, LOC, chest pain, nausea, vomiting, fever other complaints, but he has been confused time to time, and has been difficulty walking due to loss of balance. His blood sugar was 87 according to EMS personnel. 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 Occurred: this morning Reason for Fall: became dizzy Injuries/Pain Location: head Loss of Consciousness: no loss of consciousness Quality: pressure Severity of Pain-Max: mild Severity of Pain-Current: none Modifying Factors: Improves With: nothing Associated Symptoms (Fall): dizziness Allergies/Adverse Reactions: No Known Allergies Allergy (Verified 07/23/16 08:48) Home Medications: Atorvastatin Calcium 40 mg PO HS 06/04/16 [History] Citalopram Hydrobromide [Celexa] 10 mg PO DAILY 06/04/16 [History] Clopidogrel Bisulfate 75 mg [PLAVIX 75 MG Tablet] 75 mg PO DAILY 06/04/16 [History] Furosemide 40 mg [Lasix 40 MG] 40 mg PO DAILY 06/04/16 [History] Gabapentin 600 mg PO TID 06/04/16 [History] Insulin Aspart [Novolog Flexpen] 0 unit SQ ACHS 06/04/16 [History] Insulin Glargine [Lantus Insulin] 34 unit SQ HS 06/04/16 [History] Lisinopril 10 mg [Zestril 10 MG] 5 mg PO DAILY 06/04/16 [History] Metoprolol Tartrate 150 mg PO DAILY 06/04/16 [History] Tramadol HCl 50 mg [Ultram 50 mg] 50 mg PO Q8HPRN PRN 06/04/16 [History] Hx Tetanus, Diphtheria Vaccination/Date Given: Yes Hx Influenza Vaccination/Date Given: Yes Hx Pneumococcal Vaccination/Date Given: Yes Immunizations Up to Date: Yes - Review of Systems Constitutional: Weakness Respiratory: No Symptoms Cardiac: Edema Neurological: Dizziness All Other Systems: Reviewed and Negative - Past Medical History Pertinent Past Medical History: Yes Neurological History: Stroke ENT History: No Pertinent History Cardiac History: No Pertinent History Respiratory History: No Pertinent History Endocrine Medical History: Diabetes Type II Musculoskeletal History: Arthritis GI Medical History: No Pertinent History History: Other Psycho-Social History: No Pertinent History Male Reproductive Disorders: No Pertinent History Other Medical History: CVA 10 YEARS AGO W/ MOST SX RESOLVED. PT. ADMITS SOME BALANCE DEFICITS. 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%" - Past Surgical History Past Surgical History: No Neuro Surgical History: No Pertinent History Cardiac: No Pertinent History Respiratory: No Pertinent History Gastrointestinal: No Pertinent History Genitourinary: No Pertinent History Musculoskeletal: No Pertinent History Male Surgical History: No Pertinent History - Social History Smoking Status: Never smoker Exposure to second hand smoke: No Drug Use: none Patient Lives Alone: Yes - Nursing Vital Signs Nursing Vital Signs: Initial Vital Signs Temperature 100.1 F 04/08/17 21:42 Pulse Rate 91 H 04/08/17 21:42 Respiratory Rate 12 04/08/17 21:42 Blood Pressure 116/57 04/08/17 21:42 O2 Sat by Pulse Oximetry 90 L 04/08/17 21:42 Pain Scale Pain Intensity 0 - Adria Coma Score Best Eye Response (Adria): (4) open spontaneously Best Verbal Response (Bowie): (4) confused conversation Best Motor Response (Bowie): (6) obeys commands Bowie Total: 14 - Physical Exam General Appearance: no apparent distress Head Injury: no evidence of injury Eye Exam: PERRL/EOMI ENT Exam: airway nml Neck Exam: supple, trachea midline, normal alignment, normal inspection Respiratory/Chest Exam: normal breath sounds, No chest tenderness, No crepitus, No decreased breath sounds, No rales Cardiovascular Exam: normal heart sounds, regular rate/rhythm, normal peripheral pulses, edema, other (severe chronic stasis changes on both lower legs.), No murmur, No JVD Gastrointestinal Exam: soft, normal bowel sounds, No tenderness, No ecchymosis Back Exam: normal inspection, No CVA tenderness, No vertebral tenderness Extremity Exam: other (chronic edema and stasis), No calf tenderness Neurologic Exam: alert, cooperative, normal mood/affect, nml cerebellar function , other (mild confusion, confused to time only.) Skin Exam: normal color, warm, dry, No rash SpO2 Interpretation: airway management int. SpO2: 90 Oxygen Delivery: Room Air - Course Nursing assessment & vital signs reviewed: Yes EKG Interpreted by Me: RATE, Left Clements Deviation, NORMAL INTERVALS, Non- specific ST Changes - Radiology Exams Chest X-ray Interpretation: Interpreted by me, Negative Pelvis X-ray Interpretation: Interpreted by me, Negative - CT Exams Head CT Interpretation: Negative, Other (old left cerebellar stroke) Cervical Spine CT Interpretation: Negative Ordered Tests: Active Orders 24 hr Category Date Time Status Accucheck Q6H Care 04/09/17 01:17 Ordered Admission/Status Order ROUTINE Care 04/09/17 01:18 Ordered Dividing Machine Operator Helper STAT Care 04/08/17 22:15 Active Code Status Order ROUTINE Care 04/09/17 01:18 Ordered EKG-ER Only STAT Care 04/08/17 22:14 Active Fall Protocol ROUTINE Care 04/09/17 01:19 Ordered IV Care Q6H Care 04/09/17 01:18 Ordered IV Insertion STAT Care 04/08/17 22:14 Active Neuro Checks Q4H Care 04/09/17 01:17 Ordered Orthostatic Vital Signs STAT Care 04/08/17 22:14 Active Consult Neurology ROUTINE Cons 04/09/17 01:17 Ordered 1800 Calorie ADA Diet 04/09/17 Breakfast Ordered CERVICAL SPINE WO CONTRAST [CT] Stat Exams 04/08/17 22:16 Taken CHEST 1 VIEW (PORTABLE) Stat Exams 04/08/17 22:15 Taken HEAD WITHOUT CONTRAST [CT] Stat Exams 04/08/17 22:15 Taken PELVIS (1 OR 2 VIEWS) Stat Exams 04/08/17 22:54 Taken CBC W DIFF Stat Lab 04/08/17 21:36 Completed CMP Stat Lab 04/08/17 21:36 Completed ETHYL ALCOHOL Stat Lab 04/08/17 21:36 Completed Manual Differential NC Stat Lab 04/08/17 21:36 Completed TROPONIN Q3H Lab 04/08/17 21:36 Completed TROPONIN Q3H Lab 04/09/17 01:15 Ordered TROPONIN Q3H Lab 04/09/17 04:15 Ordered TROPONIN Q3H Lab 04/09/17 07:15 Ordered TROPONIN Q3H Lab 04/09/17 10:15 Ordered UA W/RFX UR CULTURE Stat Lab 04/08/17 22:15 Ordered Medication Summary Generic Name Dose Route Start Last Admin Trade Name Freq PRN Reason Stop Dose Admin Sodium Chloride 1,000 mls @ 100 mls/hr 04/08/17 22:15 04/08/17 23:22 Sodium Chloride 0.9% 1000 Ml IV 05/08/17 22:14 100 mls/hr .Q10H AMBERLY Administration Discontinued Medications Generic Name Dose Route Start Last Admin Trade Name Freq PRN Reason Stop Dose Admin Aspirin 325 mg 04/09/17 01:10 Ecotrin 325 Mg PO 04/09/17 01:11 NOW ONE Tetanus/Diphtheria Toxoids Adsorbed 0.5 ml 04/08/17 22:17 04/08/17 23:22 Tenivac Vial IM 04/08/17 22:18 0.5 ml .ONCE ONE Administration Tetanus/Diphtheria Toxoids Adsorbed Confirm 04/08/17 23:20 Tenivac Vial Administered 04/08/17 23:21 Dose 0.5 ml IM .STK-MED ONE Lab/Rad Data: Laboratory Result Diagrams 04/08/17 21:36 04/08/17 21:36 Laboratory Results 04/08/17 04/08/17 04/08/17 Range/Units 21:36 21:36 21:36 WBC 15.0 H (4.0-10.5) K/mm3 RBC 3.81 L (4.1-5.6) M/mm3 Hgb 11.2 L (12.5-18.0) gm/dl Hct 33.5 L (42-50) % MCV 87.9 (78-100) fl MCH 29.3 (26-32) pg MCHC 33.4 (32-36) g/dl RDW 13.7 (11.5-14.0) % Plt Count 200 (150-450) K/mm3 MPV 10.8 H (6-9.5) fl Sodium 129 L (136-145) mEq/L Potassium 4.4 (3.5-5.1) mEq/L Chloride 95 L (98-107) mEq/L Carbon Dioxide 24.3 (21-32) mEq/L Anion Gap 14.0 (5-15) MEQ/L BUN 42 H (9-20) mg/dL Creatinine 2.34 H (0.55-1.30) mg/dl Estimated GFR 29 ML/MIN Glucose 73 (70-110) MG/DL Calcium 9.0 (8.5-10.1) mg/dL Total Bilirubin 0.90 (0.2-1.0) mg/dL AST 77 H (15-37) U/L ALT 24 (12-78) U/L Alkaline Phosphatase 108 (46-116) U/L Troponin I < 0.017 (0.000-0.056) ng/ml Serum Total Protein 7.7 (6.4-8.2) gm/dL Albumin 3.3 L (3.4-5.0) g/dL Ethyl Alcohol < 0.010 (0.00-0.01) % - Progress Progress: unchanged Progress Note: 04/09/17 01:23 Pt has been stable, he deviates to the right when ambulates with help, denies headaches or chest pain, blood pressure controlled, stable. I explained the results to9 him and his daughter, called Dr Machuca, discussed patient's current admission, he agreed with the plan to admit him on PO aspirin. I informed patient and his daughter, they agreed. Discussed with : Sven Will see patient in: hospital (full admit) - Departure Time of Disposition: 01:25 Departure Disposition: In-patient Admission Clinical Impression: CVA (cerebrovascular accident) Qualifiers: CVA mechanism: unspecified Qualified Code(s): I63.9 - Cerebral infarction, unspecified Condition: Stable Critical Care Time: No Referrals: MELISSA ALVARES [Primary Care Provider] -
[2017-04-08 22:43] LABS: Granulocyte Absolute (ANC) 13.12 (1.4-6.9); Hematocrit 33.5 % (42-50); Hemoglobin 11.2 gm/dl (12.5-18.0); Mean Cell Volume 87.9 fl (78-100); Mean Corpuscular Hgb Concent. 33.4 g/dl (32-36); Mean Platelet Volume 10.8 fl (6-9.5); Platelet Count 200 K/mm3 (150-450); Red Blood Count 3.81 M/mm3 (4.1-5.6); Red Cell Distribution Width 13.7 % (11.5-14.0)
[2017-04-08 22:56] LABS: ALBUMIN 3.3 g/dL (3.4-5.0); ALKALINE PHOSPHATASE 108 U/L (46-116); BLOOD UREA NITROGEN 42 mg/dL (9-20); CHLORIDE 95 mEq/L (98-107); Carbon Dioxide 24.3 mEq/L (21-32); Creatinine 1 2.34 mg/dl (0.55-1.30); EST GLOMERULAR FILTRATION RATE 29 ML/MIN; ETHYL ALCOHOL < 0.010 % (0.00-0.01); Glucose 73 MG/DL (70-110); Potassium 4.4 mEq/L (3.5-5.1); SGOT/AST 77 U/L (15-37); SGPT/ALT 24 U/L (12-78); SODIUM 129 mEq/L (136-145); Total Protein 7.7 gm/dL (6.4-8.2)
[2017-04-08 23:01] LABS: Mean Corpuscular Hemoglobin 29.3 pg (26-32)
[2017-04-08] MEDS: Sodium Chloride 0.9% 1000 ML 1,000 ML IV SCH (23:22)
[2017-04-09] MEDS ORDERED: Ecotrin 325 MG PO ONE (01:10)
[2017-04-09] MEDS ORDERED: TYLENOL 325 MG PO PRN (01:17)
[2017-04-09] MEDS ORDERED: DUONEB 0.5-3 MG/3 ml Neb IH PRN (01:17)
[2017-04-09] MEDS ORDERED: Sodium Chloride 0.9% 1000 ML 1,000 ML IV SCH (01:30)
[2017-04-09 01:48] LABS: Lymphocytes 9 % (24-44); Monocyte 10 % (0.0-12.0); Neutrophils 81 % (36.-66.); Platelet Estimate NORMAL (NORMAL); Total Cells Counted 100
[2017-04-09 03:56] LABS: Appearance CLEAR (CLEAR)
[2017-04-09 03:57] LABS: Leukocyte Esterase NEGATIVE (NEGATIVE); Nitrite NEGATIVE (NEGATIVE); Protein,Urine Dip 30 (Negative)
[2017-04-09 03:58] LABS: Bilirubin NEGATIVE (NEGATIVE); Blood 250 Ery/ul (0-5); Glucose 50 mg/dL (NEGATIVE); Ketones SMALL (NEGATIVE); Urobilinogen NORMAL mg/dL (0-1)
[2017-04-09 04:44] LABS: Bacteria RARE /HPF (NEGATIVE); Hyaline Casts 0-2 /LPF (0-2); WBC 0-2 /HPF (0-5)
[2017-04-09 05:06] LABS: Hematocrit 30.6 % (42-50); Mean Corpuscular Hgb Concent. 32.7 g/dl (32-36); Mean Platelet Volume 9.6 fl (6-9.5); Platelet Count 154 K/mm3 (150-450); Red Blood Count 3.44 M/mm3 (4.1-5.6); Red Cell Distribution Width 13.5 % (11.5-14.0)
[2017-04-09 05:29] LABS: ANION GAP 14.5 MEQ/L (5-15); Calcium 8.4 mg/dL (8.5-10.1); Carbon Dioxide 23.5 mEq/L (21-32); Potassium 4.8 mEq/L (3.5-5.1)
[2017-04-09] MEDS ORDERED: PHARMACY DOSING REQUIRED: VANCOMYCIN IV ONE (08:55)
--- NOTE | 2017-04-09 09:17 | XRAY ---
Indication: Posterior head injury following fall. Multiple contiguous axial images obtained through the head without contrast. Comparison: None Age-appropriate global atrophy and minimal periventricular degenerative micro-ischemia. Small focus of old left cerebellar infarct. No acute intracranial hemorrhage, abnormal extra-axial fluid collection, or mass effect. Fourth ventricle is midline without hydrocephalus. Bony calvarium intact. Minimal bilateral maxillary sinus mucosal thickening. Mastoid air cells are clear. Impression: Nonacute senile brain. Old left cerebellar infarct. Comment: Preliminary interpretation was made by [facility]. No discrepancy. CT DI 50.53
--- NOTE | 2017-04-09 09:21 | XRAY ---
Indication: Pain following fall. Multiple contiguous axial images obtained through the cervical spine. Sagittal and coronal reformatted images obtained. Comparison: None Axial images negative for acute fracture, suspicious bony lesions, or spinal canal stenosis. Minimal C6-C7 endplate spurring. Mild bilateral degenerative facet hypertrophy, right greater than left. Additional atlantoaxial degenerative changes including odontoid process tiny subcortical cysts. Sagittal and coronal reformatted images demonstrates normal alignment with C6-C7 disc space narrowing. No acute compression fracture, subluxation, or jumped facet. Normal-appearing craniocervical junction. Visualized noncontrasted soft tissues demonstrates scattered carotid calcifications bilaterally. Lung apices clear. CT head reported separately. Impression: 1. Negative for acute fracture/subluxation. 2. Multilevel degenerative changes. Comment: Preliminary interpretation was made by [facility]. No critical discrepancy. CT DI 122.59
--- NOTE | 2017-04-09 09:23 | XRAY ---
Indication: Dizziness. Status post fall. Comparison: None Portable apical lordotic chest is clear. Heart and mediastinal structures within normal limits. Bony thorax intact with mild osteopenia and degenerative changes. Impression: Nonacute chest.
--- NOTE | 2017-04-09 09:23 | XRAY ---
Indication: Status post fall. Dizziness. Comparison: None AP pelvis demonstrates mild osteopenia, mild lower lumbar degenerative changes, and mild scattered vascular calcifications. No other bony, articular, or soft tissue abnormalities.
[2017-04-09] MEDS: Sodium Chloride 0.9% 1000 ML 1,000 ML IV SCH ×2 (09:30→21:39)
[2017-04-09] MEDS: VANCOCIN 1 GM VIAL*** 1 GM in Sodium Chloride 0.9% 250 ML 250 ML IV SCH (09:47)
[2017-04-09] MEDS: PLAVIX 75 MG Tablet PO SCH (10:46)
[2017-04-09] MEDS: Zestril 5 MG PO SCH (10:46)
[2017-04-09] MEDS: NEURONTIN 300 MG PO SCH ×3 (10:46→21:30)
[2017-04-09] MEDS: Lantus Insulin SQ SCH ×2 (10:46→21:30)
--- NOTE | 2017-04-09 10:56 | HP ---
CHIEF COMPLAINT: Dizzy and fall. HISTORY OF PRESENT ILLNESS: The patient is an 81 year-old white male patient currently living at home by himself. He had a previous CVA approximately in 2005 which was in cerebral area. The patient reports recently that he caught his foot on a throw rug and kicked it out of the way but proceeded to fall. He reports a separate episode where he thought there was somebody at the door. He checked the door and he said no one was there and as he back up to close the door he kept on going backwards, fell and hit his head posterior area. The patient denied any loss of consciousness and is currently alert and oriented x3. PAST MEDICAL/SURGICAL HISTORY: Significant for diabetes mellitus who is currently on insulin. 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 Mandie Moody. The patient also has chronic renal insufficiency. HOME MEDICATIONS: Currently include atorvastatin 40 mg a day, Celexa 10 mg a day, Plavix 75 mg daily, Lasix 40 mg daily, gabapentin 600 mg two times a day. He is on NovoLog insulin with sliding scale coverage and Lantus 34 units in the evening and 38 units in the morning, lisinopril 10 mg, metoprolol 150 mg daily, tramadol 50 mg every four hours PRN. ALLERGIES: NKDA. PHYSICAL EXAMINATION: Revealed a well nourished, well developed 81 year-old white male patient currently in no obvious distress. His most recent vital signs showed his temperature to be 98.7F although he did have a temperature elevation at 100.1F earlier. His pulse was 77, respiratory rate 20, blood pressure 119/59. O2 saturation 91% on room air. HEENT: Normocephalic, atraumatic. Pupils equal round reactive to light. Extraocular movements intact. Oropharynx is pink and moist. NECK: Supple without lymphadenopathy, thyromegaly or JVD. CHEST: Clear to auscultation with good air movement bilaterally. HEART: Currently regular rate and rhythm without significant murmurs, rubs or gallops heard. ABDOMEN: Soft, nontender, nondistended without palpable masses. EXTREMITIES: Without clubbing or cyanosis. There is some edema in both lower extremities, redness and somewhat a little bit more warm on both lower extremities as opposed to the thigh area. LAB DATA AND TESTS: CT scan revealed no acute intracranial abnormality, there are chronic changes noted with remote left cerebellar infarct. The patient's initial labs showed his troponin to be 0.017. His white blood cell count 15,000, hemoglobin 11.2, PLT 200,000. His sugar was 73, BUN 42, creatinine 2.34. Sodium was somewhat low at 129. ETOH was negative. Liver enzymes were normal. ASSESSMENT: The patient was admitted to the hospital for observation. He was given IV fluid hydration as he was felt to be somewhat dehydrated. We will start him on Vancomycin for what is felt to be lower extremity cellulitis. PT for evaluation of foot wounds and for ambulation, assessment of ambulatory ability. We are currently also arranging for neurologic consult evaluation for possible acuteness of stroke as he had CT scan but no current evidence of any new focal deficits are present. We will consider obtaining MRI depending on the neurology consultation. The patient may require admission to a rehab facility since he lives at home alone and he has demonstrated his proneness to falling on at least two occasions here recently.
[2017-04-09] MEDS ORDERED: INSULIN ASPART 5 UNIT SQ SCH (11:30)
[2017-04-09] MEDS: NovoLOG Insulin SQ SCH ×2 (11:45→17:10)
[2017-04-09] MEDS: Lasix 40 MG PO SCH (11:46)
[2017-04-09] MEDS: NovoLOG Insulin SQ PRN ×3 (11:46→21:30)
[2017-04-09] MEDS: ULTRAM 50 MG PO PRN (11:50)
[2017-04-09] MEDS ORDERED: METOPROLOL TARTRATE 150 MG PO SCH (12:00)
[2017-04-09] MEDS ORDERED: Lopressor 50 MG PO SCH (12:00)
[2017-04-09] MEDS: ZOCOR 20MG PO SCH (21:29)
[2017-04-09] MEDS: ceLEXa 20 MG PO SCH (21:29)
[2017-04-09] MEDS: FEOSOL 325 MG PO SCH (21:30)
[2017-04-09] MEDS ORDERED: NON-FORMULARY ITEM (Citalopram Hydrobromide [Celexa] 10 MG) PO SCH (22:00)
[2017-04-09] MEDS ORDERED: NON-FORMULARY ITEM (Atorvastatin Calcium [Atorvastatin Calcium] 40 MG) PO SCH (22:00)
[2017-04-10] MEDS: ULTRAM 50 MG PO PRN ×2 (02:14→13:38)
[2017-04-10] MEDS: Sodium Chloride 0.9% 1000 ML 1,000 ML IV SCH ×2 (07:38→19:44)
[2017-04-10] MEDS: Lasix 40 MG PO SCH ×2 (07:38→13:31)
[2017-04-10] MEDS: NovoLOG Insulin SQ SCH ×3 (08:23→17:35)
[2017-04-10] MEDS: PLAVIX 75 MG Tablet PO SCH (09:09)
[2017-04-10] MEDS: NEURONTIN 300 MG PO SCH ×3 (09:09→22:00)
[2017-04-10] MEDS: Zestril 5 MG PO SCH (09:09)
[2017-04-10] MEDS: VANCOCIN 1 GM VIAL*** 1 GM in Sodium Chloride 0.9% 250 ML 250 ML IV SCH (09:09)
[2017-04-10] MEDS: Lantus Insulin SQ SCH ×2 (09:10→21:59)
[2017-04-10] MEDS ORDERED: FLUZONE HIGH-DOSE 2017-18 SYR IM ONE ×2 (10:00→13:30)
--- NOTE | 2017-04-10 10:37 | PCM.NOTE ---
Date and Time: 04/10/17 1033 Subjective Assessment: He is feeling better today some pain in his hip from the fall has not been up walking much. thinks he is thinking better and feeling better still weak. says legs are sensitive. Objective Exam General Appearance: no apparent distress, alert Neurologic Exam: alert, oriented x 3, cooperative, normal mood/affect, nml cerebellar function, sensation nml, No motor deficits Skin Exam: normal color, warm, dry Eye Exam: PERRL, EOMI, eyes nml inspection Ears, Nose, Throat Exam: normal ENT inspection, pharynx normal, moist mucous membranes Neck Exam: normal inspection, non-tender, supple, full range of motion Respiratory Exam: normal breath sounds, lungs clear, No respiratory distress Cardiovascular Exam: regular rate/rhythm, normal heart sounds Gastrointestinal/Abdomen Exam: soft, No tenderness, No mass Extremity Exam: other (bilateral lower extremity chronic venous stasis changes with open ulcerations no redness or drainage currently) Back Exam: normal inspection, No CVA tenderness, No vertebral tenderness Male Genitalia Exam: deferred Rectal Exam: deferred OBJECTIVE DATA Vital Signs: Vital Signs - 24 hr Temp Pulse Resp BP Pulse Ox 04/10/17 07:22 97.9 F 71 18 168/74 95 04/10/17 04:24 70 18 94 L 04/10/17 04:00 98.6 F 70 18 148/65 94 L 04/09/17 23:48 98.7 F 68 20 156/70 93 L 04/09/17 19:50 97.6 F 68 20 134/61 93 L 04/09/17 16:00 98.5 F 61 20 127/57 93 L 04/09/17 12:00 20 04/09/17 11:24 97.7 F 84 20 134/80 94 L Pain Assessment - Last Documented Pain Intensity 1 Pain Scale Used 0-10 Pain Scale Intake and Output: Intake & Output 04/07/17 04/08/17 04/09/17 04/10/17 11:59 11:59 11:59 11:59 Intake Total 540 3540 Output Total 450 2900 Balance 90 640 Weight 100 kg 100 kg Lab Results: Accuchecks Date 04/09/17 Date 04/09/17 Date 04/09/17 Time 16:30 Time 11:30 Accucheck Value: 74 Accucheck Value: 147 Accucheck Value: 196 Accucheck Value: 290 Lab Results-Last 24 Hours 04/09/17 04/10/17 Range/Units 10:17 05:45 Troponin I < 0.017 (0.000-0.056) ng/ml Prealbumin 9.4 L (18.0-35.7) mg/dL Radiology Exams: Radiology Procedures Category Date Time Status CAROTID BILATERAL [US] Routine Exams 04/10/17 Ordered Multi-Disciplinary Progress Notes: Multi-Disciplinary Progress Notes 04/09/17 12:24 Case Management Note by Ada Landeros ATTEMPTED TO REACH EN, DAUGHTER/LAY CAREGIVER, BY PHONE, NO ANSWER. . Initialized on 04/09/17 12:24 - END OF NOTE Assessment/Plan (1) Cellulitis Current Visit: Yes Status: Acute Assessment & Plan: he was placed on vancomycin and appears to be improving no fevers wbc improving will continue for now continue hydration with acute on chronic renal failure check am labs work with PT decide in am continue treatment with vanc vs de-escalate therapy had tele d/c yesterday with Dr. Machuca and was normal sinus prior to that. Had tele neuro consult who felt most likely old stroke and recommended carotid u /s versus mri/mra will proceed with carotid u/s and continue aspirin and plavix confusion and fall likely due to the renal insufficiency and infection this is improving Code(s): L03.90 - CELLULITIS, UNSPECIFIED (2) History of CVA (cerebrovascular accident) Current Visit: Yes Status: Acute Code(s): Z86.73 - PRSNL HX OF TIA (TIA), AND CEREB INFRC W/O RESID DEFICITS (3) Acute on chronic renal failure Current Visit: Yes Status: Acute Code(s): N17.9 - ACUTE KIDNEY FAILURE, UNSPECIFIED; N18.9 - CHRONIC KIDNEY DISEASE, UNSPECIFIED (4) Hyponatremia Current Visit: Yes Status: Acute Code(s): E87.1 - HYPO-OSMOLALITY AND HYPONATREMIA (5) Falls Current Visit: Yes Status: Acute Code(s): W19.XXXA - UNSPECIFIED FALL, INITIAL ENCOUNTER (6) Diabetes type 2, controlled Current Visit: No Status: Acute Qualifiers: Code(s): E11.9 - TYPE 2 DIABETES MELLITUS WITHOUT COMPLICATIONS (7) Hypertension Current Visit: No Status: Acute Code(s): I10 - ESSENTIAL (PRIMARY) HYPERTENSION
[2017-04-10 11:04] LABS: ANION GAP 12.5 MEQ/L (5-15); Calcium 8.5 mg/dL (8.5-10.1); Carbon Dioxide 23.2 mEq/L (21-32); Creatinine 1 1.58 mg/dl (0.55-1.30); Potassium 3.9 mEq/L (3.5-5.1)
[2017-04-10] MEDS: ENOXAPARIN SODIUM SQ SCH (11:54)
[2017-04-10] MEDS: NovoLOG Insulin SQ PRN (11:54)
[2017-04-10] MEDS: Toprol Xl 50 MG PO SCH (11:54)
[2017-04-10] MEDS: ZOCOR 20MG PO SCH (22:00)
[2017-04-10] MEDS: ceLEXa 20 MG PO SCH (22:00)
[2017-04-10] MEDS: FEOSOL 325 MG PO SCH (22:00)
[2017-04-11 05:39] LABS: Hematocrit 29.4 % (42-50); Hemoglobin 9.5 gm/dl (12.5-18.0); Mean Cell Volume 90.2 fl (78-100); Mean Corpuscular Hemoglobin 29.1 pg (26-32); Mean Corpuscular Hgb Concent. 32.3 g/dl (32-36); Mean Platelet Volume 10.2 fl (6-9.5); Platelet Count 171 K/mm3 (150-450); Red Blood Count 3.26 M/mm3 (4.1-5.6); Red Cell Distribution Width 13.8 % (11.5-14.0)
[2017-04-11 05:42] LABS: ANION GAP 11.9 MEQ/L (5-15); Calcium 8.6 mg/dL (8.5-10.1); Carbon Dioxide 23.7 mEq/L (21-32); Creatinine 1 1.28 mg/dl (0.55-1.30); Potassium 3.8 mEq/L (3.5-5.1)
[2017-04-11] MEDS: Sodium Chloride 0.9% 1000 ML 1,000 ML IV SCH (05:54)
[2017-04-11] MEDS: NovoLOG Insulin SQ SCH ×3 (08:16→16:56)
[2017-04-11] MEDS: Lasix 40 MG PO SCH ×2 (08:19→12:22)
[2017-04-11] MEDS: Toprol Xl 50 MG PO SCH (10:24)
[2017-04-11] MEDS: ENOXAPARIN SODIUM SQ SCH (10:24)
[2017-04-11] MEDS: PLAVIX 75 MG Tablet PO SCH (10:24)
[2017-04-11] MEDS: Zestril 5 MG PO SCH ×2 (10:24→21:37)
[2017-04-11] MEDS: Lantus Insulin SQ SCH ×2 (10:24→22:04)
[2017-04-11] MEDS: NEURONTIN 300 MG PO SCH ×3 (10:24→21:36)
[2017-04-11] MEDS: VANCOCIN 1 GM VIAL*** 1 GM in Sodium Chloride 0.9% 250 ML 250 ML IV SCH (10:25)
--- NOTE | 2017-04-11 11:26 | PCM.NOTE ---
Date and Time: 04/11/17 1124 Subjective Assessment: a little more confused today legs are weeping more today some nausea as well. Objective Exam General Appearance: no apparent distress, alert Neurologic Exam: alert, No motor deficits Skin Exam: normal color, warm, dry Eye Exam: PERRL, EOMI, eyes nml inspection Ears, Nose, Throat Exam: normal ENT inspection, pharynx normal, moist mucous membranes Neck Exam: normal inspection, non-tender, supple, full range of motion Respiratory Exam: normal breath sounds, lungs clear, No respiratory distress Cardiovascular Exam: regular rate/rhythm, normal heart sounds Gastrointestinal/Abdomen Exam: soft, No tenderness, No mass Extremity Exam: normal inspection, normal range of motion, other (bilateral lower extremity chronic venous stasis changes with venous ulcerations and drainage no warmth or redness.) Back Exam: normal inspection, normal range of motion, No CVA tenderness, No vertebral tenderness Male Genitalia Exam: deferred Rectal Exam: deferred OBJECTIVE DATA Vital Signs: Vital Signs - 24 hr Temp Pulse Resp BP Pulse Ox 04/11/17 11:22 98.0 F 68 18 173/78 92 L 04/11/17 08:00 18 04/11/17 07:32 97.9 F 70 18 187/76 91 L 04/11/17 04:00 97.8 F 70 19 156/68 94 L 04/11/17 00:00 97.9 F 77 20 165/74 92 L 04/10/17 22:06 79 18 92 L 04/10/17 20:00 97.8 F 76 18 159/70 92 L 04/10/17 16:00 97.7 F 80 18 185/82 92 L Pain Assessment - Last Documented Pain Intensity 0 Pain Scale Used 0-10 Pain Scale Intake and Output: Intake & Output 04/08/17 04/09/17 04/10/17 04/11/17 11:59 11:59 11:59 11:59 Intake Total 540 3540 4305 Output Total 450 2900 750 Balance 90 640 3555 Weight 100 kg 100 kg Lab Results: Accuchecks Date 04/11/17 Date 04/10/17 Time 07:30 Accucheck Value: 71 Accucheck Value: 75 Accucheck Value: 96 Accucheck Value: 181 Lab Results-Last 24 Hours 04/10/17 04/11/17 04/11/17 Range/Units 05:30 05:00 05:00 WBC 7.0 (4.0-10.5) K/mm3 RBC 3.26 L (4.1-5.6) M/mm3 Hgb 9.5 L (12.5-18.0) gm/dl Hct 29.4 L (42-50) % MCV 90.2 (78-100) fl MCH 29.1 (26-32) pg MCHC 32.3 (32-36) g/dl RDW 13.8 (11.5-14.0) % Plt Count 171 (150-450) K/mm3 MPV 10.2 H (6-9.5) fl Sodium 135 L 134 L (136-145) mEq/L Potassium 3.9 3.8 (3.5-5.1) mEq/L Chloride 103 102 (98-107) mEq/L Carbon Dioxide 23.2 23.7 (21-32) mEq/L Anion Gap 12.5 11.9 (5-15) MEQ/L BUN 39 H 27 H (9-20) mg/dL Creatinine 1.58 H 1.28 (0.55-1.30) mg/dl Estimated GFR 45 57 ML/MIN Glucose 85 75 (70-110) MG/DL Calcium 8.5 8.6 (8.5-10.1) mg/dL Radiology Exams: Radiology Procedures Category Date Time Status CAROTID BILATERAL [US] Routine Exams 04/12/17 Ordered Assessment/Plan (1) Cellulitis Current Visit: Yes Status: Acute Assessment & Plan: on vancomycin pharmacy to dose chronic venous stasis will need continued wound care tx renal function improved he has been on NS at 100 mL/h since admission but swelling in LE worsening stop the NS he has his home dose of lasix he has already been on will continue bp is elevated will increase the lisinopril to 10 mg from 5mg Plan was for possible rehab tomorrow has carotid dupplex ordered for am after tele neuro rec for this vs MRI/MRA Code(s): L03.90 - CELLULITIS, UNSPECIFIED (2) History of CVA (cerebrovascular accident) Current Visit: Yes Status: Acute Code(s): Z86.73 - PRSNL HX OF TIA (TIA), AND CEREB INFRC W/O RESID DEFICITS (3) Acute on chronic renal failure Current Visit: Yes Status: Acute Code(s): N17.9 - ACUTE KIDNEY FAILURE, UNSPECIFIED; N18.9 - CHRONIC KIDNEY DISEASE, UNSPECIFIED (4) Hyponatremia Current Visit: Yes Status: Acute Code(s): E87.1 - HYPO-OSMOLALITY AND HYPONATREMIA (5) Falls Current Visit: Yes Status: Acute Code(s): W19.XXXA - UNSPECIFIED FALL, INITIAL ENCOUNTER (6) Diabetes type 2, controlled Current Visit: No Status: Acute Qualifiers: Code(s): E11.9 - TYPE 2 DIABETES MELLITUS WITHOUT COMPLICATIONS (7) Hypertension Current Visit: No Status: Acute Code(s): I10 - ESSENTIAL (PRIMARY) HYPERTENSION
[2017-04-11] MEDS: ULTRAM 50 MG PO PRN (15:23)
[2017-04-11] MEDS: ZOCOR 20MG PO SCH (21:36)
[2017-04-11] MEDS: ceLEXa 20 MG PO SCH (21:36)
[2017-04-11] MEDS: FEOSOL 325 MG PO SCH (21:36)
[2017-04-11] MEDS: VANCOCIN 1 GM VIAL*** 0.75 GM in Sodium Chloride 0.9% 150 ML 150 ML IV SCH (21:38)
[2017-04-12 05:53] LABS: BASOPHIL % 0.2 % (0.0-0.4); Basophil (Absolute #) 0.01 (0-0.4); Eosinophil % 1.8 % (0.00-5.0); Eosinophil (Absolute #) 0.12 (0-0.5); Granulocyte Absolute (ANC) 4.83 (1.4-6.9); Granulocytes % 74.1 % (36.0-66.0); Hemoglobin 9.3 gm/dl (12.5-18.0); Lymphocyte (Absolute #) 0.72 (1.0-4.6); Mean Cell Volume 89.5 fl (78-100); Mean Corpuscular Hemoglobin 28.7 pg (26-32); Mean Corpuscular Hgb Concent. 32.1 g/dl (32-36); Monocyte (Absolute #) 0.84 (0.0-1.3); Monocytes % 12.9 % (0.0-12.0); Platelet Count 189 K/mm3 (150-450); Red Blood Count 3.24 M/mm3 (4.1-5.6); Red Cell Distribution Width 13.9 % (11.5-14.0); White Blood Count 6.5 K/mm3 (4.0-10.5)
[2017-04-12 06:22] LABS: ANION GAP 11.8 MEQ/L (5-15); BLOOD UREA NITROGEN 23 mg/dL (9-20); CHLORIDE 104 mEq/L (98-107); Calcium 8.8 mg/dL (8.5-10.1); Carbon Dioxide 25.8 mEq/L (21-32); Creatinine 1 1.18 mg/dl (0.55-1.30); EST GLOMERULAR FILTRATION RATE > 60 ML/MIN; Glucose 53 MG/DL (70-110); SODIUM 138 mEq/L (136-145)
[2017-04-12] MEDS: Lasix 40 MG PO SCH ×2 (07:59→13:57)
[2017-04-12] MEDS: NovoLOG Insulin SQ SCH (08:00)
--- NOTE | 2017-04-12 09:14 | PCM.DCORD ---
- Discharge Discharge Date: 04/12/17 Disposition: Home, Self-Care Condition: Stable Prescriptions: New Smz/Tmp Ds Tablet [Bactrim Ds Tablet] 1 tab PO Q12H #20 tablet Insulin Glargine [Lantus Insulin] 22 unit SQ HS 30 Days unit Insulin Aspart [NovoLOG Insulin] 1 units SQ UD PRN unit PRN Reason: HYPERGLYCEMIA Metoprolol Succinate 50 mg [Toprol Xl 50 MG] 150 mg PO DAILY tablet.sa Acetaminophen 325 mg [Tylenol 325 mg] 650 mg PO Q4H PRN PRN tablet PRN Reason: Pain And/Or Fever Tramadol HCl 50 mg [Ultram 50 mg] 50 mg PO Q8HPRN PRN tablet PRN Reason: Pain Continue Gabapentin 300 mg PO TID Lisinopril 10 mg [Zestril 10 MG] 5 mg PO DAILY Citalopram Hydrobromide [Celexa] 10 mg PO HS Metoprolol Tartrate 150 mg PO LUNCH Tramadol HCl 50 mg [Ultram 50 mg] 50 mg PO Q8HPRN PRN PRN Reason: Pain Furosemide 40 mg [Lasix 40 MG] 40 mg PO BID Clopidogrel Bisulfate 75 mg [PLAVIX 75 MG Tablet] 75 mg PO DAILY Atorvastatin Calcium 40 mg PO HS Ferrous Sulfate [Iron] 325 mg PO HS Discontinued Insulin Glargine [Lantus Insulin] 22 unit SQ BID Insulin Aspart [Novolog Flexpen] 5 unit SQ AC Follow up with: MELISSA ALVARES [Primary Care Provider] - Forms: Patient Portal Information
[2017-04-12] MEDS ORDERED: TROUGH DRUG LEVELS IJ ONE (09:30)
--- NOTE | 2017-04-12 09:49 | XRAY ---
Indication: Stroke. Two-dimensional sonogram and color Doppler imaging of the carotid arteries of the neck performed. Comparison: None Examination of the right carotid circulation demonstrates mild tortuous common carotid artery with minimal calcified plaquing. Additional mild calcified plaquing seen at the level of the bulb extending into the origin of the external carotid artery. PSV of the CCA is 101 cm/s. PSV of the ICA is 227 cm/s. ICA/CCA ratio is 2.2. Normal antegrade vertebral artery flow. Examination of the left carotid circulation also demonstrates minimal calcified plaquing in the common carotid artery. Mild calcified plaquing at the level of the bulb extending into the origin of the internal carotid artery and lesser degree external carotid artery. PSV of the CCA is 108 cm/s. PSV of the ICA is 118 cm/s. ICA/CCA ratio is 1.1. Normal antegrade vertebral artery flow. Impression: Minimal/mild scattered carotid plaquing bilaterally without critical stenosis/obstruction. Velocity measurements and ratios suggest 50-69% stenosis on the right. No hemodynamically significant flow-limiting stenosis on the left.
[2017-04-12] MEDS: ENOXAPARIN SODIUM SQ SCH (09:58)
[2017-04-12] MEDS: PLAVIX 75 MG Tablet PO SCH (09:58)
[2017-04-12] MEDS: NEURONTIN 300 MG PO SCH ×3 (09:58→21:53)
[2017-04-12] MEDS: Zestril 5 MG PO SCH ×2 (09:58→21:53)
[2017-04-12] MEDS: Toprol Xl 50 MG PO SCH (09:58)
[2017-04-12] MEDS: VANCOCIN 1 GM VIAL*** 0.75 GM in Sodium Chloride 0.9% 150 ML 150 ML IV SCH ×2 (10:00→21:57)
--- NOTE | 2017-04-12 13:07 | DS ---
DISCHARGE DIAGNOSES: 1) CELLULITIS RIGHT LOWER EXTREMITY FOOT WOUND. 2) DIABETES MELLITUS TYPE 2 ON INSULIN. 3) WEAKNESS. 4) FALLING. HOSPITAL COURSE: The patient is an 81 year-old white male patient living alone. He reports he has fallen on at least three separate occasions at home recently hitting the back of his head. Due to his weakness and falling he is brought to the emergency room and subsequently admitted to the hospital. He was also found to have some renal insufficiency. Due to what appeared to be cellulitis of the lower extremity and small foot wound, he attended physical therapy who began him on IV Vancomycin. He did seem to improve with this although he was somewhat hypoglycemic during his stay. We backed off his insulin to sliding scale coverage and from twice a day to once a day Lantus. He will also be place on Bactrim DS to take p.o. as a replacement for Vancomycin for the lower extremity cellulitis. He will continue to receive wound management by physical therapy at a rehab facility. The patient will be followed up in the office in two weeks to see if he will be ready to go home. There is a possibility that he may not be able to go home as he was living at home alone presently. The family is aware of this and they are in agreement presently.
--- NOTE | 2017-04-12 14:32 | XRAY ---
Indication: Bilateral lower leg ulcerations. Poor circulation. Two-dimensional sonogram and color Doppler imaging of the major arteries of the left lower leg was performed. Comparison: June 05, 2016. Bakery Associate notes difficult exam due to patient's constantly moving and poor cooperation. Unable to obtain ankle brachial indices. Examination of the right leg again demonstrates mild scattered arteriosclerotic disease in the common femoral, superficial femoral, popliteal, posterior tibial, and dorsal pedal arteries without critical stenosis/obstruction. Dorsal pedal artery waveform is again monophasic with the remaining arterial waveforms are multiphasic. Examination of the left leg also demonstrates minimal/mild disease in the common femoral, superficial femoral, popliteal, posterior tibial, dorsal pedal arteries without critical stenosis/obstruction. Dorsal pedal artery waveform is again monophasic. Remaining left leg arterial waveforms are multiphasic. Impression: 1. Difficult sonogram due to poor patient cooperation and motion. 2. Essentially stable bilateral scattered arteriosclerotic disease without critical stenosis/obstruction. CTA abdominal aorta with bilateral runoff may yield further information if there remains further clinical concern.
--- NOTE | 2017-04-12 15:32 | CONS ---
CONSULT DATE: 04/12/2017 This patient was seen for Dr. Victorino Anders who is concrete inspector for our group today. HISTORY: The patient is an 81 year-old gentleman at [facility]. He has got diabetes. He has chronic stasis changes on bilateral lower extremities. He also had chronic problems and recently worsened and now he has some gangrene there with some drainage. A little bit of blanching towards the pad of the foot. Otherwise the remainder of the foot did not have significant swelling or redness. He did have a callous over the first metatarsal area on the right foot that had been scraped in the past. He has been followed by a welfare eligibility worker for the callous on his first metatarsal area. White blood cell count 6.5, hemoglobin 9.3, PLT 189,000. History is mainly taken from the chart as the patient is not a good historian. He was admitted for observation. Venous stasis changes on his lower extremities have been treated in the past. He also has fallen but CT no acute cranial changes. PAST MEDICAL HISTORY: CVA in the past. He has been on some Plavix. He caught his foot on a throw rug and just had problems with it for a couple months or so. Dr. Mandie Moody is his daughter. He has had some hypertension. There is some question whether he has some dementia. PAST SURGICAL HISTORY: Intervention regarding a callous on the first metatarsophalangeal by his welfare eligibility worker. MEDICATIONS: Atorvastatin, Celexa, Plavix, gabapentin, Lasix, NovoLog insulin, Lantus, lisinopril, metoprolol, tramadol. ALLERGIES: NKDA. FAMILY HISTORY: Negative in regards to this problem. SOCIAL HISTORY: No alcohol abuse. REVIEW OF SYSTEMS: Twelve systems reviewed per admission assessment. No chest pain or palpitations other systems negative or noncontributory as above and per preadmission questionnaire. PHYSICAL EXAMINATION: A chronically ill gentleman, 84 year-old. HEENT: Sclera nonicteric. Well nourished. NECK: No JVD. CHEST: Equal excursion. CVS: Regular rhythm. ABDOMEN: Soft, nondistended. EXTREMITIES: Bilateral chronic venous stasis changes. He had draining in the past but did not look grossly infected at this time. He does have right second toe with some gangrene. He has an open wound that is freely draining. Minimal blanching of the plantar aspect, this is quite open and draining. He is hemodynamically stable. He is not NPO at this point so the risk of aspiration is far more than risk or benefit of doing amputation at this junction as this has been going on for some time but I do feel he would benefit from second metatarsal amputation at a minimum as the toe itself is not salvageable. He was explained there is a good possibility that he could lose the third toe and/or the great toe on either side of this and that ultimately he is at risk of losing part of lower limb. His pulses may be faintly palpable. He does have capillary refill and bilateral lower extremities are warm and currently viable other than the toe as mentioned above. Venous duplex pending. 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 Again not NPO currently. No need for emergent surgery as this is not an emergent problem, hemodynamically stable. White blood cell count is not elevated. I do feel that he would benefit from minimal second metatarsal amputation of his second toe, possibly progressing to third or great toe transmetatarsal amputation. As he has diabetes and does not have ideal vascular supply there is a chance it could fail to heal and require amputation higher up. Otherwise I feel the toe needs to come off regardless whether guillotine-type procedure offer easier drainage or attempt closure to see if it could heal. Either way some arterial Doppler's ordered for further evaluation but he does not seem to be a real good candidate for any arterial reconstruction distally as he has such bad venous problems and would have a hard time healing the wound. Pictures were sent to Dr. Christy Anders who will forward to Dr. Victorino Anders and decide who is available to proceed with progression of toe amputation in next day or two. In the meantime continue on antibiotics. Leave him NPO after midnight so they can decide for sure tomorrow. Again this patient was seen for Dr. Victorino Anders who was concrete inspector for our group.
[2017-04-12] MEDS: NovoLOG Insulin SQ PRN (16:39)
[2017-04-12] MEDS: ceLEXa 20 MG PO SCH (21:53)
[2017-04-12] MEDS: FEOSOL 325 MG PO SCH (21:53)
[2017-04-12] MEDS: ZOCOR 20MG PO SCH (21:54)
[2017-04-12] MEDS: Lantus Insulin SQ SCH (22:06)
[2017-04-13] MEDS ORDERED: Sodium Chloride 0.9% 1000 ML 1,000 ML IV SCH (08:00)
[2017-04-13] MEDS: Lasix 40 MG PO SCH ×2 (08:01→13:00)
[2017-04-13] MEDS: Zestril 5 MG PO SCH ×2 (08:01→22:13)
[2017-04-13] MEDS: Toprol Xl 50 MG PO SCH (08:01)
[2017-04-13] MEDS: NEURONTIN 300 MG PO SCH ×3 (08:04→22:13)
[2017-04-13] MEDS ORDERED: CEFAZOLIN 2 GM-D5W BAG** 2 GM/50 ML ML IV SCH (08:30)
[2017-04-13] MEDS ORDERED: TROUGH DRUG LEVELS IJ ONE (09:30)
[2017-04-13] MEDS: VANCOCIN 1 GM VIAL*** 0.75 GM in Sodium Chloride 0.9% 150 ML 150 ML IV SCH ×2 (09:35→22:30)
[2017-04-13] MEDS ORDERED: Lactated Ringers 1,000 ML IV ONE (10:59)
[2017-04-13] MEDS ORDERED: Sensorcaine 0.25% 10 ML ONE (10:59)
[2017-04-13] MEDS ORDERED: Ketamine HCl 50 MG/ML IV ONE (15:50)
[2017-04-13] MEDS ORDERED: Naropin 0.5% 30 ML VIAL IJ ONE (15:50)
[2017-04-13] MEDS ORDERED: Decadron 4 MG INJ IV ONE (15:50)
[2017-04-13] MEDS ORDERED: Nesacaine 3% -Mpf*** 20ML SDV IJ ONE (15:50)
[2017-04-13] MEDS ORDERED: DIPRIVAN 200 MG/20 ML IV ONE (15:50)
[2017-04-13] MEDS ORDERED: Versed 2 MG/2 ML Injection IV ONE (15:50)
[2017-04-13] MEDS ORDERED: FEVERALL 650 MG RC PRN (16:34)
[2017-04-13] MEDS: FEOSOL 325 MG PO SCH (22:12)
[2017-04-13] MEDS: ceLEXa 20 MG PO SCH (22:12)
[2017-04-13] MEDS: ZOCOR 20MG PO SCH (22:13)
[2017-04-13] MEDS: NovoLOG Insulin SQ PRN (22:17)
[2017-04-13] MEDS: Lantus Insulin SQ SCH (22:18)
[2017-04-14 05:43] LABS: Hematocrit 31.8 % (42-50); Hemoglobin 10.4 gm/dl (12.5-18.0); Mean Cell Volume 88.6 fl (78-100); Mean Corpuscular Hgb Concent. 32.7 g/dl (32-36); Mean Platelet Volume 9.6 fl (6-9.5); Platelet Count 242 K/mm3 (150-450); Red Blood Count 3.59 M/mm3 (4.1-5.6); Red Cell Distribution Width 13.8 % (11.5-14.0)
[2017-04-14 05:50] LABS: Mean Corpuscular Hemoglobin 28.9 pg (26-32)
[2017-04-14 06:58] LABS: ANION GAP 11.1 MEQ/L (5-15); BLOOD UREA NITROGEN 22 mg/dL (9-20); CHLORIDE 103 mEq/L (98-107); Calcium 8.8 mg/dL (8.5-10.1); Carbon Dioxide 28.1 mEq/L (21-32); Creatinine 1 1.17 mg/dl (0.55-1.30); EST GLOMERULAR FILTRATION RATE > 60 ML/MIN; Glucose 127 MG/DL (70-110); Potassium 3.6 mEq/L (3.5-5.1); SODIUM 139 mEq/L (136-145)
--- NOTE | 2017-04-14 08:59 | OP ---
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 PROCEDURES: 1) Right foot incision and debridement. 2) Right foot second digit ray amputation with partial transmetatarsal amputation. SURGEON: Victorino Anders M.D. ANESTHESIA: MAC with regional blockade. SPECIMEN: Right second toe. Tissue for culture. Right foot abscess culture. ESTIMATED BLOOD LOSS: 10 cc. COMPLICATIONS: None. FINDINGS: Right foot second digit grossly necrotic with wet gangrene extending into the metatarsal with what appeared to be osteomyelitis. PATIENT PRESENTATION: This 81 year-old male presents with a worsening right foot wound. The patient said this has been going on for months when talking with his daughter. He has been very confused over the last week since this infection has been getting worse. She thinks that the infection really started looking bad since the last week and has progressively became worse with the second digit becoming black and foul purulent drainage from the foot. After discussion of risks and benefits of surgery and plan for likely ray amputation and leaving the wound open with open dressing changes and a Wound vac, the daughter and the patient wish to proceed. DESCRIPTION OF PROCEDURE: The patient was brought to the operating room, placed in supine position on the operating room table. Anesthesia provided an ankle block and then MAC anesthesia was initiated. The right foot was prepped and draped in sterile fashion. A ray amputation was performed. A scalpel was used to incise the grossly necrotic skin and a wedge-shape over the second digit going up approximately half the metatarsal making more on the dorsal surface and a small amount of plantar surface. Electrocautery was then used to transect the ligaments and soft tissue attachments. The metatarsal was freed off with an elevator. It was then transected with a bone cutter. The metatarsal was then lifted up and its ligamentous attachments further released with electrocautery until the remainder of the digit was removed from the wound bed. There was a significant amount of purulent fluid in the wound and gangrenous foul smelling tissue most of this was removed with the digit. There were a few areas of unhealthy tissue that were debrided with a curette. Once all of the nonviable tissue was adequately debrided the wound was copiously irrigated. Hemostasis achieved with electrocautery. The wound was then packed with Surgicel and moist Kerlix and a dressing was applied. The patient was recovering and taken to the PACU in stable condition with plans for b.i.d. dressing changes and eventual transition to Wound vac therapy.
[2017-04-14] MEDS: Lasix 40 MG PO SCH ×2 (09:38→12:41)
[2017-04-14] MEDS: ENOXAPARIN SODIUM SQ SCH (09:38)
[2017-04-14] MEDS: NEURONTIN 300 MG PO SCH ×3 (09:38→21:38)
[2017-04-14] MEDS: Zestril 5 MG PO SCH ×2 (09:38→21:39)
[2017-04-14] MEDS: Toprol Xl 50 MG PO SCH (09:38)
[2017-04-14] MEDS: VANCOCIN 1 GM VIAL*** 0.75 GM in Sodium Chloride 0.9% 150 ML 150 ML IV SCH ×2 (09:39→21:38)
[2017-04-14] MEDS: NORCO 5/325 MG PO PRN ×2 (10:48→19:54)
[2017-04-14] MEDS: Levofloxacin 500 MG Tablet PO SCH (10:50)
--- NOTE | 2017-04-14 11:02 | DS ---
DISCHARGE DIAGNOSES: 1) DIABETIC FOOT WOUND. 2) DIABETES MELLITUS. 3) FALLING EPISODES. CONSULTANTS: Dr. Christy Anders OPERATIVE PROCEDURE: Amputation of the second toe on right foot. HISTORY: The patient was admitted to the medicine [facility] after having been admitted through the emergency room. Apparently he had a couple of falls at home the last time hitting the back of his head. He had no loss of consciousness. [place] it was clear that he was unable to care for himself any longer. He presented to the emergency room and subsequently admitted to the hospital for further evaluation and management. HOSPITAL COURSE: The patient was begun on IV antibiotics. He was also noted to be hypokalemic and did receive IV potassium repletion. The patient received fluids for dehydration as well. He had CT scan of the head which showed old stroke but nothing new. The patient was began on IV Vancomycin, had surgery on 04/13/2017 and by 04/14/2017 he was felt to be ready for discharge to the rehab facility where he will receive dressing changes and continue IV Vancomycin twice daily for the next seven days. Urine wound culture was growing gram-negative rods and this will not be covered by the Vancomycin so we also added Levaquin p.o. for an additional seven days as well. The patient will be seen in follow up in the office if he is able to get there. He also has follow up in the surgeon's office for re-evaluation of the wound.
[2017-04-14] MEDS: NovoLOG Insulin SQ PRN ×3 (12:41→21:39)
--- NOTE | 2017-04-14 15:51 | PCM.DCORD ---
- Discharge Discharge Date: 04/14/17 Disposition: Home, Self-Care Prescriptions: New Insulin Glargine [Lantus Insulin] 22 unit SQ HS 30 Days unit Insulin Aspart [NovoLOG Insulin] 1 units SQ UD PRN unit PRN Reason: HYPERGLYCEMIA Metoprolol Succinate 50 mg [Toprol Xl 50 MG] 150 mg PO DAILY tablet.sa Acetaminophen 325 mg [Tylenol 325 mg] 650 mg PO Q4H PRN PRN tablet PRN Reason: Pain And/Or Fever Tramadol HCl 50 mg [Ultram 50 mg] 50 mg PO Q8HPRN PRN tablet PRN Reason: Pain Vancomycin/0.9 % Sod Chloride [Vanco 1 Gram/250 ml-0.9% NaCl] 0.75 gm IV Q12H 7 Days #14 plast..bag Levofloxacin [Levofloxacin 500 MG Tablet] 500 mg PO DAILY 7 Days tablet Continue Gabapentin 300 mg PO TID Lisinopril 10 mg [Zestril 10 MG] 5 mg PO DAILY Citalopram Hydrobromide [Celexa] 10 mg PO HS Metoprolol Tartrate 150 mg PO LUNCH Tramadol HCl 50 mg [Ultram 50 mg] 50 mg PO Q8HPRN PRN PRN Reason: Pain Furosemide 40 mg [Lasix 40 MG] 40 mg PO BID Clopidogrel Bisulfate 75 mg [PLAVIX 75 MG Tablet] 75 mg PO DAILY Atorvastatin Calcium 40 mg PO HS Ferrous Sulfate [Iron] 325 mg PO HS Discontinued Insulin Glargine [Lantus Insulin] 22 unit SQ BID Insulin Aspart [Novolog Flexpen] 5 unit SQ AC Additional Instructions: SHANDRA HODGES: PT/OT EVAL AND TREAT 1999 [facility] ADA DIET ACCU CHECK AC/HS SEE ATTACHED DOCUMENTATION FOR WOUND CARE, WOUND CARE NURSE FOR WOUND CARE SEE ATTACHED MED LIST FOR ALL MED ORDERS DR. BASHIR TO FOLLOW AT [facility] Follow up with: TIANA RUSH MD [ASSOCIATE STAFF] - 04/21/17 12:00 pm (- [id number] ) Forms: Patient Portal Information
[2017-04-14] MEDS: ceLEXa 20 MG PO SCH (21:38)
[2017-04-14] MEDS: FEOSOL 325 MG PO SCH (21:38)
[2017-04-14] MEDS: ZOCOR 20MG PO SCH (21:39)
[2017-04-14] MEDS: Lantus Insulin SQ SCH (21:39)
[2017-04-15] MEDS: Levofloxacin 500 MG Tablet PO SCH (08:29)
[2017-04-15] MEDS: Toprol Xl 50 MG PO SCH (08:29)
[2017-04-15] MEDS: ENOXAPARIN SODIUM SQ SCH (08:29)
[2017-04-15] MEDS: Zestril 5 MG PO SCH (08:29)
[2017-04-15] MEDS: NEURONTIN 300 MG PO SCH ×2 (08:29→14:20)
[2017-04-15] MEDS: Lasix 40 MG PO SCH ×2 (08:32→13:05)
[2017-04-15] MEDS ORDERED: PLAVIX 75 MG Tablet PO SCH (10:00)
[2017-04-15] MEDS: VANCOCIN 1 GM VIAL*** 0.75 GM in Sodium Chloride 0.9% 150 ML 150 ML IV SCH (10:10)
[2017-04-15] MEDS: NORCO 5/325 MG PO PRN (11:17)
[2017-04-15] MEDS: ULTRAM 50 MG PO PRN (14:20)
--- NOTE | 2017-04-15 15:53 | XRAY ---
Indication: PICC line placement. Comparison: April 08, 2017. Portable chest demonstrates new left arm PICC line with the tip projecting over the SVC. Remaining lungs clear. Heart is not enlarged. No new/acute cardiopulmonary abnormalities.
[2017-04-15 16:16] VITALS: BP 184/88; PULSE 55; O2SAT 95
[2017-04-15] MEDS: NovoLOG Insulin SQ PRN (16:43)
== END 2017-04-15 17:40 | DRG 579 ==
LOC: ED 21:33 → MED SURG 04-09 01:49
PROVIDERS: ADMIT Family Medicine; ATTEND Family Medicine
PROC: 0Y6R0Z2 Detachment at Right 2nd Toe, Mid, Open Approach (ICD-10-PCS; principal; 2017-04-13)
PROC: 0SBM0ZZ Excision of Right Metatarsal-Phalangeal Joint, Open Approach (ICD-10-PCS; 2017-04-13)
DX: L03.115 Cellulitis of right lower limb (principal); E11.9 Type 2 diabetes mellitus without complications; I63.9 Cerebral infarction, unspecified; R41.0 Disorientation, unspecified; M19.90 Unspecified osteoarthritis, unspecified site; M86.9 Osteomyelitis, unspecified; E11.52 Type 2 diabetes mellitus with diabetic peripheral angiopathy with gangrene; S39.92XA Unspecified injury of lower back, initial encounter; W18.30XA Fall on same level, unspecified, initial encounter; S91.301A Unspecified open wound, right foot, initial encounter; E11.621 Type 2 diabetes mellitus with foot ulcer; Z79.4 Long term (current) use of insulin; R53.1 Weakness; R29.6 Repeated falls; E87.6 Hypokalemia; E86.0 Dehydration; I12.9 Hypertensive chronic kidney disease with stage 1 through stage 4 chronic kidney disease, or unspecified chronic kidney disease; N18.9 Chronic kidney disease, unspecified; Z86.73 Personal history of transient ischemic attack (TIA), and cerebral infarction without residual deficits; Z79.899 Other long term (current) drug therapy
CPT/HCPCS: 01480; 36415; 36569; 70450; 71045; 72125; 72170; 80048; 80053; 80202; 81000; 82962; 83036; 84134; 84484; 85025; 85027; 87070; 87077; 87086; 87186; 90471; 90714; 93005; 93041; 93880; 93925; 94760; 96372; 99100; 99285; A6457; G0008; G0481; J0690; J1100; J1650; J2250; J2704; J2795; J3370; 90662; A9270-GY

== ENCOUNTER 2018-09-15 13:22 | Observation (INO) | payer MEDICARE, OTHER ==
[2018-09-15 14:21] LABS: BASOPHIL % 0.1 % (0.0-0.4); Basophil (Absolute #) 0.01 (0-0.4); Eosinophil % 0.4 % (0.00-5.0); Eosinophil (Absolute #) 0.03 (0-0.5); Granulocyte Absolute (ANC) 6.12 (1.4-6.9); Hematocrit 37.7 % (42-50); Hemoglobin 12.5 gm/dl (12.5-18.0); Lymphocyte (Absolute #) 1.18 (1.0-4.6); Lymphocytes % 14.3 % (24.0-44.0); Mean Cell Volume 90.4 fl (78-100); Mean Corpuscular Hgb Concent. 33.2 g/dl (32-36); Monocytes % 11.2 % (0.0-12.0); Platelet Count 270 K/mm3 (150-450); Red Blood Count 4.17 M/mm3 (4.1-5.6); Red Cell Distribution Width 13.8 % (11.5-14.0); White Blood Count 8.3 K/mm3 (4.0-10.5)
--- NOTE | 2018-09-15 14:21 | ERPHSYRPT ---
- History of Present Illness Time Seen by Provider: 09/15/18 14:15 Source: patient Exam Limitations: no limitations Patient Subjective Stated Complaint: WAS AT THE [facility] ON HIS WAY TO WOUND CARE AND HE FELT DIZZY. PATIENT WAS ABLE TO SIT ON FLOOR. WAS ASSISTED TO WHEELCHAIR BY PERSONEL. DENIES ANY PAIN. STATES HE HAD A SIMILAIR EPISODE THIS AM AT HOME. Triage Nursing Assessment: TO ROOM PER W/C. SKIN W/D, COLOR NORMAL, RESP EASY. A/O TIMES THREE AT PRESENT TIME. BILAT CELLULITIS TO LOWER LEGS. Physician History: Pt had an appointment at wound clinic today, he was at the cafeteria at 12:30 PM , started feeling dizzy, generally weak, had to sit down. He had similar episode of sudden dizziness, generalized weakness at 10 AM at home, when having few bites for breakfast. He checked his blood sugar, it was 150. He states, the dizziness resolved in about one hour and drive himself here to the wound clinic. The second episode of dizziness also resolved just before he was escorted here. He denies fall, any injury, no headaches, no vertigo, blurred vision, no focal weakness, slurred speech, chest pain, SOB, other complaints, no nausea, vomiting. He states, the second episode of dizziness also lasted approximately one hour. He had CVA in 2005, when he had similar dizziness, also had right sided weakness, and blurring of his left eye then. He denies any similar scenario now, except the dizziness, which also resolved. Timing/Duration: hour(s) (4), resolved prior to arrival Severity: moderate Character of Deficits: other (dizziness) Deficits: no difficulties Baseline/Normal Cognition: alert oriented x 3 Current Cognition: alert oriented x 3 Baseline Gait: uses walker Associated Symptoms: denies symptoms Allergies/Adverse Reactions: Sulfa (Sulfonamide Antibiotics) Adverse Reaction (Verified 09/15/18 13:55) Home Medications: Atorvastatin Calcium 40 mg PO HS 06/04/16 [History] Citalopram Hydrobromide [Celexa] 10 mg PO HS 06/04/16 [History] Clopidogrel Bisulfate 75 mg [PLAVIX 75 MG Tablet] 75 mg PO DAILY 06/04/16 [History] Furosemide 40 mg [Lasix 40 MG] 40 mg PO BID 06/04/16 [History] Gabapentin 300 mg PO TID 06/04/16 [History] Lisinopril 10 mg [Zestril 10 MG] 5 mg PO DAILY 06/04/16 [History] Metoprolol Tartrate 150 mg PO LUNCH 06/04/16 [History] Ferrous Sulfate [Iron] 325 mg PO HS 04/09/17 [History] Hx Tetanus, Diphtheria Vaccination/Date Given: Yes Hx Influenza Vaccination/Date Given: Yes Hx Pneumococcal Vaccination/Date Given: Yes - Review of Systems Constitutional: No Symptoms Eyes: No Symptoms Ears, Nose, & Throat: No Symptoms Respiratory: No Symptoms Cardiac: No Symptoms Abdominal/Gastrointestinal: No Symptoms Genitourinary Symptoms: No Symptoms Musculoskeletal: No Symptoms Skin: No Symptoms Neurological: Dizziness All Other Systems: Reviewed and Negative - Past Medical History Pertinent Past Medical History: Yes Neurological History: Stroke ENT History: No Pertinent History Cardiac History: No Pertinent History Respiratory History: No Pertinent History Endocrine Medical History: Diabetes Type II Musculoskeletal History: Arthritis GI Medical History: No Pertinent History History: Renal Disease Psycho-Social History: No Pertinent History Male Reproductive Disorders: No Pertinent History Other Medical History: CVA 10 YEARS AGO W/ MOST SX RESOLVED. PT. ADMITS SOME BALANCE DEFICITS. 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%" - Past Surgical History Past Surgical History: No Neuro Surgical History: No Pertinent History Cardiac: No Pertinent History Respiratory: No Pertinent History Gastrointestinal: No Pertinent History Genitourinary: No Pertinent History Musculoskeletal: No Pertinent History, Orthopedic Surgery Male Surgical History: No Pertinent History Other Surgical History: Callus removed from ball of right foot; 2ND DIGIT RIGHT FOOT REMOVED - Social History Smoking Status: Never smoker Exposure to second hand smoke: No Drug Use: none Patient Lives Alone: Yes - Nursing Vital Signs Nursing Vital Signs: Initial Vital Signs Temperature 97.5 F 09/15/18 13:46 Pulse Rate 81 09/15/18 13:46 Respiratory Rate 16 09/15/18 13:46 Blood Pressure 106/75 09/15/18 13:46 O2 Sat by Pulse Oximetry 97 09/15/18 13:46 Pain Scale Pain Intensity 0 - Adria Coma Scale Best Eye Response (Adria): (4) open spontaneously Best Verbal Response (Adria): (5) oriented Best Motor Response ([place]): (6) obeys commands Adria Total: 15 - Physical Exam General Appearance: no apparent distress Eye Exam: bilateral eye: PERRL, EOMI Ears, Nose, Throat Exam: normal ENT inspection, moist mucous membranes Neck Exam: normal inspection, non-tender, supple, No carotid bruit, No JVD Respiratory: normal breath sounds, lungs clear, airway intact, No chest tenderness Cardiovascular: regular rate/rhythm, normal heart sounds, normal peripheral pulses, No murmur Gastrointestinal: soft, normal bowel sounds, No tenderness Extremity Exam: other (chronic bilateral lower leg edema and stasis changes, severe skin scaling.), No calf tenderness Peripheral Pulses: carotid (R): 2+, carotid (L): 2+, dorsalis-pedis (R): 1+, dorsalis-pedis (L): 1+ Mental Status: alert, oriented x 3, cooperative Coordination/Gait: normal finger to nose DTR: bicep (R): 2+, bicep (L): 2+, knee (R): 2+, knee (L): 2+, ankle (R): 2+, ankle (L): 2+ Skin Exam: normal color, warm, dry, No petechiae SpO2 Interpretation: normal SpO2: 97 O2 Delivery: Room Air - Course Nursing assessment & vital signs reviewed: Yes EKG Interpreted by Me: RATE (78/min), NORMAL AXIS, NORMAL INTERVALS, NORMAL QRS , NORMAL ST-T - Radiology Exams Chest X-ray Interpretation: Reviewed by me, Negative - CT Exams Head CT Interpretation: Negative, Tele-radiologist Report Ordered Tests: Active Orders 24 hr Category Date Time Status Accucheck STAT Care 09/15/18 14:12 Active Documentation Billing Clerk STAT Care 09/15/18 14:13 Active EKG-ER Only STAT Care 09/15/18 14:12 Active IV Insertion STAT Care 09/15/18 14:12 Active Orthostatic Vital Signs STAT Care 09/15/18 14:14 Active CHEST 1 VIEW (PORTABLE) Stat Exams 09/15/18 14:12 Completed HEAD WITHOUT CONTRAST [CT] Stat Exams 09/15/18 14:13 Completed CBC W DIFF Stat Lab 09/15/18 14:00 Completed CMP Stat Lab 09/15/18 14:00 Completed Erythrocyte Sedimentation Rate Stat Lab 09/15/18 14:00 Completed PROTIME WITH INR Stat Lab 09/15/18 14:00 Completed TROPONIN Q3H Lab 09/15/18 14:00 Completed TROPONIN Q3H Lab 09/15/18 17:15 Ordered TROPONIN Q3H Lab 09/15/18 20:15 Ordered TROPONIN Q3H Lab 09/15/18 23:15 Ordered TROPONIN Q3H Lab 09/16/18 02:15 Ordered UA W/RFX UR CULTURE Stat Lab 09/15/18 14:12 Ordered Medication Summary Generic Name Dose Route Start Last Admin Trade Name Karan PRN Reason Stop Dose Admin Aspirin 325 mg 09/16/18 16:06 Ecotrin 325 Mg PO 09/16/18 16:07 NOW ONE Sodium Chloride 1,000 mls @ 100 mls/hr 09/15/18 16:15 Sodium Chloride 0.9% 1000 Ml IV 10/15/18 16:14 .Q10H AMBERLY Lab/Rad Data: Laboratory Result Diagrams 09/15/18 14:00 09/15/18 14:00 Laboratory Results 09/15/18 09/15/18 09/15/18 Range/Units 14:00 14:00 14:00 WBC (4.0-10.5) K/mm3 RBC (4.1-5.6) M/mm3 Hgb (12.5-18.0) gm/dl Hct (42-50) % MCV (78-100) fl MCH (26-32) pg MCHC (32-36) g/dl RDW (11.5-14.0) % Plt Count (150-450) K/mm3 MPV (6-9.5) fl Gran % (36.0-66.0) % Eos # (Auto) (0-0.5) Absolute Lymphs (auto) (1.0-4.6) Absolute Monos (auto) (0.0-1.3) Lymphocytes % (24.0-44.0) % Monocytes % (0.0-12.0) % Eosinophils % (0.00-5.0) % Basophils % (0.0-0.4) % Absolute Granulocytes (1.4-6.9) Basophils # (0-0.4) ESR 52 H (0-15) mm/hr PT 12.4 (8.83-12.87) SECONDS INR 1.10 (0.8-3.0) Sodium (137-145) mmol/L Potassium (3.5-5.1) mmol/L Chloride (98-107) mmol/L Carbon Dioxide (22-30) mmol/L Anion Gap (5-15) MEQ/L BUN (9-20) mg/dL Creatinine (0.66-1.25) mg/dL Estimated GFR ML/MIN Glucose (74-106) mg/dL Calcium (8.4-10.2) mg/dL Total Bilirubin (0.2-1.3) mg/dL AST (17-59) U/L ALT (0-50) U/L Alkaline Phosphatase (38-126) U/L Troponin I < 0.012 (0.000-0.034) ng/mL Serum Total Protein (6.3-8.2) g/dL Albumin (3.5-5.0) g/dL 09/15/18 09/15/18 Range/Units 14:00 14:00 WBC 8.3 (4.0-10.5) K/mm3 RBC 4.17 (4.1-5.6) M/mm3 Hgb 12.5 (12.5-18.0) gm/dl Hct 37.7 L (42-50) % MCV 90.4 (78-100) fl MCH 30.0 (26-32) pg MCHC 33.2 (32-36) g/dl RDW 13.8 (11.5-14.0) % Plt Count 270 (150-450) K/mm3 MPV 10.0 H (6-9.5) fl Gran % 74.0 H (36.0-66.0) % Eos # (Auto) 0.03 (0-0.5) Absolute Lymphs (auto) 1.18 (1.0-4.6) Absolute Monos (auto) 0.93 (0.0-1.3) Lymphocytes % 14.3 L (24.0-44.0) % Monocytes % 11.2 (0.0-12.0) % Eosinophils % 0.4 (0.00-5.0) % Basophils % 0.1 (0.0-0.4) % Absolute Granulocytes 6.12 (1.4-6.9) Basophils # 0.01 (0-0.4) ESR (0-15) mm/hr PT (8.83-12.87) SECONDS INR (0.8-3.0) Sodium 137 (137-145) mmol/L Potassium 5.0 (3.5-5.1) mmol/L Chloride 102 (98-107) mmol/L Carbon Dioxide 21 L (22-30) mmol/L Anion Gap 19.4 H (5-15) MEQ/L BUN 30 H (9-20) mg/dL Creatinine 2.15 H (0.66-1.25) mg/dL Estimated GFR 31.5 ML/MIN Glucose 185 H (74-106) mg/dL Calcium 10.1 (8.4-10.2) mg/dL Total Bilirubin 0.50 (0.2-1.3) mg/dL AST 17 (17-59) U/L ALT 13 (0-50) U/L Alkaline Phosphatase 92 (38-126) U/L Troponin I (0.000-0.034) ng/mL Serum Total Protein 7.8 (6.3-8.2) g/dL Albumin 4.1 (3.5-5.0) g/dL - Progress Progress: unchanged Progress Note: 09/15/18 16:17 Pt remains asymptomatic, stable, reviewed his results and discussed with Dr Caal, she agreed to admit him for observation, he was started on ASA 325 mg daily, patient was informed and agreed. Discussed with : Afua Will see patient in: hospital (observation) Counseled pt/family regarding: lab results, diagnosis, rad results - Departure Departure Disposition: Observation Clinical Impression: Transient ischemic attack (TIA) Condition: Stable Critical Care Time: No Referrals: MELISSA ALVARES [Primary Care Provider] -
[2018-09-15 14:22] LABS: INR 1.1 (0.8-3.0); PROTIME 12.4 SECONDS (8.83-12.87)
[2018-09-15 14:26] LABS: ALBUMIN 4.1 g/dL (3.5-5.0); ANION GAP 19.4 MEQ/L (5-15); BILIRUBIN,TOTAL 0.5 mg/dL (0.2-1.3); Calcium 10.1 mg/dL (8.4-10.2); Creatinine 1 2.15 mg/dL (0.66-1.25); Total Protein 7.8 g/dL (6.3-8.2)
--- NOTE | 2018-09-15 14:45 | XRAY ---
Indication: Unsteady gait, dizziness, and lightheaded. Comparison: April 15, 2017. Portable chest remains clear again with a few incidental calcified granulomas. Heart is not enlarged. Bony thorax intact again with mild degenerative changes. Previous left PICC line has been removed. Impression: Nonacute chest with chronic features.
--- NOTE | 2018-09-15 14:49 | XRAY ---
Indication: Unsteady gait, lightheaded, and dizziness. Multiple contiguous axial images obtained through the head without contrast. Comparison: April 08, 2017. Stable age-appropriate global atrophy, minimal periventricular degenerative micro-ischemia, and small old left cerebellar infarct. Again no acute intracranial hemorrhage, hydrocephalus, or mass effect. Ontiveros-white matter differentiation preserved. Bony calvarium intact. Again minimal mucosal thickening floor of the left maxillary sinus. Remaining visualized paranasal sinuses and mastoid air cells are essentially clear. Impression: Again nonacute senile brain with old left cerebellar infarct and minimal paranasal sinus disease. CT DI 70.10
[2018-09-15] MEDS: Sodium Chloride 0.9% 1000 ML 1,000 ML IV SCH (16:19)
[2018-09-15 16:26] LABS: Appearance SLIGHTLY CLOUDY (CLEAR); Bacteria RARE /HPF (NEGATIVE); Bilirubin NEGATIVE (NEGATIVE); Blood SMALL Ery/ul (0-5); Glucose >=500 mg/dL (NEGATIVE); Ketones TRACE (NEGATIVE); Leukocyte Esterase NEGATIVE (NEGATIVE); Mucus SLIGHT /HPF (NEGATIVE); Nitrite NEGATIVE (NEGATIVE); Protein,Urine Dip 100 (Negative); Specific Gravity 1.018 (1.005-1.025); Urobilinogen NEGATIVE mg/dL (0-1); WBC 0-2 /HPF (0-5)
[2018-09-15] MEDS ORDERED: Sodium Chloride 0.9% 1000 ML 1,000 ML IV SCH (16:30)
[2018-09-15] MEDS ORDERED: ULTRAM 50 MG PO PRN (22:00)
[2018-09-15] MEDS: ceLEXa 20 MG PO SCH (22:16)
[2018-09-15] MEDS: FEOSOL 325 MG PO SCH (22:18)
[2018-09-15] MEDS: NEURONTIN 300 MG PO SCH (22:19)
[2018-09-15] MEDS: Lantus Insulin SQ SCH (22:19)
[2018-09-15] MEDS: NovoLOG Insulin SQ PRN (22:21)
[2018-09-15] MEDS: ZOCOR 20MG PO SCH (22:21)
[2018-09-16 02:34] LABS: Calcium 9.1 mg/dL (8.4-10.2); Creatinine 1 1.78 mg/dL (0.66-1.25); Potassium 4.2 mmol/L (3.5-5.1)
[2018-09-16 02:51] LABS: BASOPHIL % 0.5 % (0.0-0.4); Basophil (Absolute #) 0.02 (0-0.4); Eosinophil % 1.4 % (0.00-5.0); Eosinophil (Absolute #) 0.06 (0-0.5); Granulocyte Absolute (ANC) 2.34 (1.4-6.9); Granulocytes % 56.1 % (36.0-66.0); Hematocrit 32.9 % (42-50); Hemoglobin 10.9 gm/dl (12.5-18.0); Lymphocyte (Absolute #) 1.23 (1.0-4.6); Lymphocytes % 29.5 % (24.0-44.0); Mean Cell Volume 90.1 fl (78-100); Mean Corpuscular Hgb Concent. 33.1 g/dl (32-36); Monocytes % 12.5 % (0.0-12.0); Platelet Count 190 K/mm3 (150-450); Red Blood Count 3.65 M/mm3 (4.1-5.6); Red Cell Distribution Width 13.7 % (11.5-14.0); White Blood Count 4.2 K/mm3 (4.0-10.5)
[2018-09-16 02:53] LABS: Mean Corpuscular Hemoglobin 29.8 pg (26-32)
[2018-09-16] MEDS ORDERED: TYLENOL 325 MG PO PRN (07:05)
[2018-09-16] MEDS: APRESOLINE 20 MG/ML INJ IV PRN ×3 (08:09→21:32)
--- NOTE | 2018-09-16 09:13 | PCM.HP ---
History of Present Illness - Chief Complaint Chief Complaint: TIA History of Present Illness: is a 82 year old male pt of [facility] with PMHx DM, cerebellar CVA, HTN, cellulitis bilat LE, and CRF who was admitted yesterday through the ER with dizziness. He was feeling lightheaded at home; had a wound care appt for his legs at 10:30 am, but was dizzy while getting his coffee, showering, and dressing and had to sit with his head between his legs several times. He didn' t get to the hospital unitl 1 pm, and the staff advised him to go to ER. In ER, he was found to have dehydration with Cr 2.15 (normally around 1.4). CT head without acute findings. His sx resolved in ER. ESR was 52. Denied any MCKEON. Yesterday he did not take his a.m. lasix. This morning his Cr was 1.78. BP on admission was 106/75; since then it has been in the 150s to 170s systolic , aside from his 7 a.m. bp which was 210 systolic (hydralazine given IV). - Review of Systems Neurological: Dizziness Psychological: Depression, No Anxiety, No Suicidal Ideations All Other Systems: Reviewed and Negative Medications & Allergies Home Medications: Home Medication List Atorvastatin Calcium 40 mg PO HS 06/04/16 [History Confirmed 09/15/18] Citalopram Hydrobromide [Celexa] 10 mg PO HS 06/04/16 [History Confirmed ] Clopidogrel Bisulfate 75 mg [PLAVIX 75 MG Tablet] 75 mg PO DAILY 06/04/16 [History Confirmed 09/15/18] Furosemide 40 mg [Lasix 40 MG] 40 mg PO BID 06/04/16 [History Confirmed ] Gabapentin 300 mg PO TID 06/04/16 [History Confirmed 09/15/18] Lisinopril 10 mg [Zestril 10 MG] 5 mg PO DAILY 06/04/16 [History Confirmed 09/15/18] Metoprolol Tartrate 150 mg PO LUNCH 06/04/16 [History Confirmed 09/15/18] Ferrous Sulfate [Iron] 325 mg PO HS 04/09/17 [History Confirmed 09/15/18] Acetaminophen 325 mg [Tylenol 325 mg] 650 mg PO Q4H PRN PRN tablet [Rx Confirmed 09/15/18] Insulin Aspart [NovoLOG Insulin] 1 units SQ UD PRN unit 04/12/17 [Rx Confirmed 09/15/18] Insulin Glargine [Lantus Insulin] 22 unit SQ HS 30 Days unit 04/12/17 [Rx Confirmed 09/15/18] Tramadol HCl 50 mg [Ultram 50 mg] 50 mg PO Q8HPRN PRN tablet 04/12/17 [ Rx Confirmed 09/15/18] Allergies/Adverse Reactions: Allergies Allergy/AdvReac Type Severity Reaction Status Date / Time Sulfa (Sulfonamide AdvReac Verified 09/15/18 13:55 Antibiotics) - Past Medical History Past Medical History: Yes Neurological History: Stroke ENT History: No Pertinent History Cardiac History: No Pertinent History Respiratory History: No Pertinent History Endocrine Medical History: Diabetes Type II Musculoskelatal History: Arthritis GI Medical History: No Pertinent History History: Renal Disease Pyscho-Social History: No Pertinent History Male Reproductive Disorders: No Pertinent History Comment: CVA 10 YEARS AGO W/ MOST SX RESOLVED. PT. ADMITS SOME BALANCE DEFICITS. 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%" - Past Surgical History Past Surgical History: No Neuro Surgical History: No Pertinent History Cardiac History: No Pertinent History Respiratory Surgery: No Pertinent History GI Surgical History: No Pertinent History Genitourinary Surgical Hx: No Pertinent History Musculskeletal Surgical Hx: No Pertinent History, Orthopedic Surgery Male Surgical History: No Pertinent History Other Surgical History: Callus removed from ball of right foot; 2ND DIGIT RIGHT FOOT REMOVED - Social History Smoking Status: Never smoker Exposure to second hand smoke: No Alcohol: None Drug Use: none - Physical Exam Vital Signs: Vital Signs - 24 hr Temp Pulse Resp BP Pulse Ox 09/16/18 08:00 96.7 F 65 16 202/93 99 09/16/18 04:00 97.3 F 64 18 170/83 98 09/16/18 00:00 97.9 F 78 18 152/68 96 09/15/18 20:38 98.4 F 89 18 168/71 97 09/15/18 20:00 18 09/15/18 17:03 96.4 F 88 18581 97 09/15/18 16:40 96.4 F 88 18 185/81 97 09/15/18 16:38 96.4 F 88 185/81 97 09/15/18 16:18 97 09/15/18 15:50 84 20 144/77 99 09/15/18 13:46 97.5 F 81 16 106/75 97 General Appearance: no apparent distress, alert Neurologic Exam: oriented x 3, cooperative, fabrication technician II-XII nml as tested, other ( normal finger-nose digital archivist 5/5 bilat) Eye Exam: PERRL/EOMI, eyes nml inspection Ears, Nose, Throat Exam: moist mucous membranes Neck Exam: normal inspection, non-tender, No lymphadenopathy Respiratory Exam: normal breath sounds, lungs clear, No crackles/rales, No rhonchi, No wheezing Cardiovascular Exam: regular rate/rhythm, normal heart sounds, No murmur Gastrointestinal/Abdomen Exam: soft, normal bowel sounds, No tenderness, No distention, No mass, No guarding, No rebound Extremity Exam: other (bilat LE with yellow plaque lateral LLE. there is peeling skin throughout with chronic changes of erythema and nodular skin; edema appears mild. legs are coated with lotion. there is a defect on each lateral leg approx 1x2.5 cm with no erythema or exudate.) Wound Assessment: Skin/Wound Assessment Wound/Incision Assessment Start: 09/15/18 17: 24 Text: Status: Active Freq: Q6H Protocol: Document 09/16/18 08:00 JONG (Rec: 09/16/18 08:26 [id number]) Wound/Incision Assessment Left Lower Calf Wound Assessment Shift Assessment Wound Type Stasis Ulcer Wound Stage Non Pressure Wound Drainage Amount None General Appearance Unapproximated Length (cm) (cm) 3 Width (cm) (cm) 1 Wound Bed Greatest Portion Red (Granulation) Wound Bed Lesser Portion Red (Granulation) Surrounding Tissue [place] Comment barrier ointment applied to LLL. Right Lower Lateral Calf Wound Assessment Admission Wound Type Stasis Ulcer Wound Stage Non Pressure Wound Drainage Amount None Drainage Odor None/Absent General Appearance Unapproximated Length (cm) (cm) 4 Width (cm) (cm) 2 Wound Bed Greatest Portion Red (Granulation) Wound Bed Lesser Portion Red (Granulation) Surrounding Tissue [place] Comment barrier ointment applied to BLE Wound Photo Photo Taken No Results - Labs Lab/Micro Results: Accuchecks Date 09/15/18 Time 21:30 Accucheck Value: 386 Accucheck Value: 201 Lab Results-Last 24 Hours 09/15/18 09/15/18 09/15/18 Range/Units 14:00 14:00 14:00 WBC 8.3 (4.0-10.5) K/mm3 RBC 4.17 (4.1-5.6) M/mm3 Hgb 12.5 (12.5-18.0) gm/dl Hct 37.7 L (42-50) % MCV 90.4 (78-100) fl MCH 30.0 (26-32) pg MCHC 33.2 (32-36) g/dl RDW 13.8 (11.5-14.0) % Plt Count 270 (150-450) K/mm3 MPV 10.0 H (6-9.5) fl Gran % 74.0 H (36.0-66.0) % Eos # (Auto) 0.03 (0-0.5) Absolute Lymphs (auto) 1.18 (1.0-4.6) Absolute Monos (auto) 0.93 (0.0-1.3) Lymphocytes % 14.3 L (24.0-44.0) % Monocytes % 11.2 (0.0-12.0) % Eosinophils % 0.4 (0.00-5.0) % Basophils % 0.1 (0.0-0.4) % Absolute Granulocytes 6.12 (1.4-6.9) Basophils # 0.01 (0-0.4) ESR (0-15) mm/hr PT (8.83-12.87) SECONDS INR (0.8-3.0) Sodium 137 (137-145) mmol/L Potassium 5.0 (3.5-5.1) mmol/L Chloride 102 (98-107) mmol/L Carbon Dioxide 21 L (22-30) mmol/L Anion Gap 19.4 H (5-15) MEQ/L BUN 30 H (9-20) mg/dL Creatinine 2.15 H (0.66-1.25) mg/dL Estimated GFR 31.5 ML/MIN Glucose 185 H (74-106) mg/dL Calcium 10.1 (8.4-10.2) mg/dL Total Bilirubin 0.50 (0.2-1.3) mg/dL AST 17 (17-59) U/L ALT 13 (0-50) U/L Alkaline Phosphatase 92 (38-126) U/L Troponin I < 0.012 (0.000-0.034) ng/mL Serum Total Protein 7.8 (6.3-8.2) g/dL Albumin 4.1 (3.5-5.0) g/dL Urine Color (YELLOW) Urine Appearance (CLEAR) Urine pH (5-6) Ur Specific Dozier (1.005-1.025) Urine Protein (Negative) Urine Ketones (NEGATIVE) Urine Blood (0-5) Pérez/ul Urine Nitrite (NEGATIVE) Urine Bilirubin (NEGATIVE) Urine Urobilinogen (0-1) mg/dL Ur Leukocyte Esterase (NEGATIVE) Urine WBC (Auto) (0-5) /HPF Urine RBC (Auto) (0-2) /HPF U Hyaline Cast (Auto) (0-2) /LPF U Epithel Cells (Auto) (FEW) /HPF Urine Bacteria (Auto) (NEGATIVE) /HPF Urine Mucus (Auto) (NEGATIVE) /HPF Urine Culture Reflexed (NO) Urine Glucose (NEGATIVE) mg/dL 09/15/18 09/15/18 09/15/18 Range/Units 14:00 14:00 14:12 WBC (4.0-10.5) K/mm3 RBC (4.1-5.6) M/mm3 Hgb (12.5-18.0) gm/dl Hct (42-50) % MCV (78-100) fl MCH (26-32) pg MCHC (32-36) g/dl RDW (11.5-14.0) % Plt Count (150-450) K/mm3 MPV (6-9.5) fl Gran % (36.0-66.0) % Eos # (Auto) (0-0.5) Absolute Lymphs (auto) (1.0-4.6) Absolute Monos (auto) (0.0-1.3) Lymphocytes % (24.0-44.0) % Monocytes % (0.0-12.0) % Eosinophils % (0.00-5.0) % Basophils % (0.0-0.4) % Absolute Granulocytes (1.4-6.9) Basophils # (0-0.4) ESR 52 H (0-15) mm/hr PT 12.4 (8.83-12.87) SECONDS INR 1.10 (0.8-3.0) Sodium (137-145) mmol/L Potassium (3.5-5.1) mmol/L Chloride (98-107) mmol/L Carbon Dioxide (22-30) mmol/L Anion Gap (5-15) MEQ/L BUN (9-20) mg/dL Creatinine (0.66-1.25) mg/dL Estimated GFR ML/MIN Glucose (74-106) mg/dL Calcium (8.4-10.2) mg/dL Total Bilirubin (0.2-1.3) mg/dL AST (17-59) U/L ALT (0-50) U/L Alkaline Phosphatase (38-126) U/L Troponin I (0.000-0.034) ng/mL Serum Total Protein (6.3-8.2) g/dL Albumin (3.5-5.0) g/dL Urine Color YELLOW (YELLOW) Urine Appearance SLIGHTLY CLOUDY (CLEAR) Urine pH 5.0 (5-6) Ur Specific Dozier 1.018 (1.005-1.025) Urine Protein 100 (Negative) Urine Ketones TRACE (NEGATIVE) Urine Blood SMALL (0-5) Pérez/ul Urine Nitrite NEGATIVE (NEGATIVE) Urine Bilirubin NEGATIVE (NEGATIVE) Urine Urobilinogen NEGATIVE (0-1) mg/dL Ur Leukocyte Esterase NEGATIVE (NEGATIVE) Urine WBC (Auto) 0-2 (0-5) /HPF Urine RBC (Auto) 11-15 (0-2) /HPF U Hyaline Cast (Auto) 6-10 (0-2) /LPF U Epithel Cells (Auto) NONE (FEW) /HPF Urine Bacteria (Auto) RARE (NEGATIVE) /HPF Urine Mucus (Auto) SLIGHT (NEGATIVE) /HPF Urine Culture Reflexed YES (NO) Urine Glucose >=500 (NEGATIVE) mg/dL 09/15/18 09/15/18 09/15/18 Range/Units 17:20 20:17 23:24 WBC (4.0-10.5) K/mm3 RBC (4.1-5.6) M/mm3 Hgb (12.5-18.0) gm/dl Hct (42-50) % MCV (78-100) fl MCH (26-32) pg MCHC (32-36) g/dl RDW (11.5-14.0) % Plt Count (150-450) K/mm3 MPV (6-9.5) fl Gran % (36.0-66.0) % Eos # (Auto) (0-0.5) Absolute Lymphs (auto) (1.0-4.6) Absolute Monos (auto) (0.0-1.3) Lymphocytes % (24.0-44.0) % Monocytes % (0.0-12.0) % Eosinophils % (0.00-5.0) % Basophils % (0.0-0.4) % Absolute Granulocytes (1.4-6.9) Basophils # (0-0.4) ESR (0-15) mm/hr PT (8.83-12.87) SECONDS INR (0.8-3.0) Sodium (137-145) mmol/L Potassium (3.5-5.1) mmol/L Chloride (98-107) mmol/L Carbon Dioxide (22-30) mmol/L Anion Gap (5-15) MEQ/L BUN (9-20) mg/dL Creatinine (0.66-1.25) mg/dL Estimated GFR ML/MIN Glucose (74-106) mg/dL Calcium (8.4-10.2) mg/dL Total Bilirubin (0.2-1.3) mg/dL AST (17-59) U/L ALT (0-50) U/L Alkaline Phosphatase (38-126) U/L Troponin I < 0.012 < 0.012 0.012 (0.000-0.034) ng/mL Serum Total Protein (6.3-8.2) g/dL Albumin (3.5-5.0) g/dL Urine Color (YELLOW) Urine Appearance (CLEAR) Urine pH (5-6) Ur Specific Dozier (1.005-1.025) Urine Protein (Negative) Urine Ketones (NEGATIVE) Urine Blood (0-5) Pérez/ul Urine Nitrite (NEGATIVE) Urine Bilirubin (NEGATIVE) Urine Urobilinogen (0-1) mg/dL Ur Leukocyte Esterase (NEGATIVE) Urine WBC (Auto) (0-5) /HPF Urine RBC (Auto) (0-2) /HPF U Hyaline Cast (Auto) (0-2) /LPF U Epithel Cells (Auto) (FEW) /HPF Urine Bacteria (Auto) (NEGATIVE) /HPF Urine Mucus (Auto) (NEGATIVE) /HPF Urine Culture Reflexed (NO) Urine Glucose (NEGATIVE) mg/dL 09/16/18 09/16/18 09/16/18 Range/Units 02:19 02:19 02:19 WBC 4.2 (4.0-10.5) K/mm3 RBC 3.65 L (4.1-5.6) M/mm3 Hgb 10.9 L (12.5-18.0) gm/dl Hct 32.9 L (42-50) % MCV 90.1 (78-100) fl MCH 29.8 (26-32) pg MCHC 33.1 (32-36) g/dl RDW 13.7 (11.5-14.0) % Plt Count 190 (150-450) K/mm3 MPV 10.0 H (6-9.5) fl Gran % 56.1 (36.0-66.0) % Eos # (Auto) 0.06 (0-0.5) Absolute Lymphs (auto) 1.23 (1.0-4.6) Absolute Monos (auto) 0.52 (0.0-1.3) Lymphocytes % 29.5 (24.0-44.0) % Monocytes % 12.5 H (0.0-12.0) % Eosinophils % 1.4 (0.00-5.0) % Basophils % 0.5 (0.0-0.4) % Absolute Granulocytes 2.34 (1.4-6.9) Basophils # 0.02 (0-0.4) ESR (0-15) mm/hr PT (8.83-12.87) SECONDS INR (0.8-3.0) Sodium 136 L (137-145) mmol/L Potassium 4.2 (3.5-5.1) mmol/L Chloride 104 (98-107) mmol/L Carbon Dioxide 23 (22-30) mmol/L Anion Gap 13.0 (5-15) MEQ/L BUN 33 H (9-20) mg/dL Creatinine 1.78 H (0.66-1.25) mg/dL Estimated GFR 39.2 ML/MIN Glucose 233 H (74-106) mg/dL Calcium 9.1 (8.4-10.2) mg/dL Total Bilirubin (0.2-1.3) mg/dL AST (17-59) U/L ALT (0-50) U/L Alkaline Phosphatase (38-126) U/L Troponin I < 0.012 (0.000-0.034) ng/mL Serum Total Protein (6.3-8.2) g/dL Albumin (3.5-5.0) g/dL Urine Color (YELLOW) Urine Appearance (CLEAR) Urine pH (5-6) Ur Specific Dozier (1.005-1.025) Urine Protein (Negative) Urine Ketones (NEGATIVE) Urine Blood (0-5) Pérez/ul Urine Nitrite (NEGATIVE) Urine Bilirubin (NEGATIVE) Urine Urobilinogen (0-1) mg/dL Ur Leukocyte Esterase (NEGATIVE) Urine WBC (Auto) (0-5) /HPF Urine RBC (Auto) (0-2) /HPF U Hyaline Cast (Auto) (0-2) /LPF U Epithel Cells (Auto) (FEW) /HPF Urine Bacteria (Auto) (NEGATIVE) /HPF Urine Mucus (Auto) (NEGATIVE) /HPF Urine Culture Reflexed (NO) Urine Glucose (NEGATIVE) mg/dL Microbiology 09/15/18 14:12 Urine Culture - Preliminary Clean Catch Midstream NO GROWTH TO DATE Accuchecks Date 09/15/18 Time 21:30 Accucheck Value: 386 Accucheck Value: 201 - Radiology Impressions Radiology Exams & Impressions: Radiology Procedures Category Date Time Status CHEST 1 VIEW (PORTABLE) Stat Exams 09/15/18 14:12 Completed HEAD WITHOUT CONTRAST [CT] Stat Exams 09/15/18 14:13 Completed Assessment/Plan (1) Transient ischemic attack (TIA) Current Visit: Yes Status: Acute Assessment & Plan: CT head was neg. Will do MRI today if pt is able. Will have nursing staff do orthostatic bps. I suspect he was having some hypotension with his dehydration ; may need his diuretic adjusted. Holding lasix for now. On IVF at 100cc/hr. Cr improved this a.m., but would like to see it improve further prior to discharge. Will likely stay today for possible d/c to home tomorrow. 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
[2018-09-16] MEDS ORDERED: Zestril 10 MG PO SCH (10:00)
[2018-09-16] MEDS: NEURONTIN 300 MG PO SCH ×3 (10:47→21:33)
[2018-09-16] MEDS: PLAVIX 75 MG Tablet PO SCH (10:47)
[2018-09-16] MEDS: Zestril 5 MG PO SCH (10:47)
[2018-09-16] MEDS: ENOXAPARIN SODIUM SQ SCH (10:48)
--- NOTE | 2018-09-16 10:56 | XRAY ---
Indication: Dizziness and unsteady gait. Stroke 2006. Sagittal, coronal, and axial MRI brain was performed without contrast using T1, T2, FLAIR, diffusion, and ADC sequences. Comparison: None Examination was ordered with contrast but performed without contrast due to poor renal function. Age-appropriate global atrophy and minimal periventricular degenerative micro-ischemia signal bilaterally. Small focus of old infarct peripheral left cerebellum with surrounding gliosis signal. Diffusion images are negative for restricted signal. No acute intracranial hemorrhage, abnormal extra-axial fluid collection, or mass effect. Fourth ventricle is midline without hydrocephalus. 7/8 cranial nerve complex bilaterally symmetric. Normal flow-void signal within the major intracervical circulation. Normal appearing craniocervical junction and sella turcica. Paranasal sinuses are clear. Impression: 1. Normal aging brain including atrophy and minimal degenerative micro-ischemia. Old left cerebellar infarct. 2. No acute intracranial abnormalities or evidence for evolving large vessel territorial ischemia.
[2018-09-16] MEDS ORDERED: METOPROLOL TARTRATE 150 MG PO SCH (12:00)
[2018-09-16] MEDS: Lopressor 50 MG PO SCH (13:06)
[2018-09-16] MEDS: NovoLOG Insulin SQ PRN (13:07)
[2018-09-16] MEDS: Sodium Chloride 0.9% 1000 ML 1,000 ML IV SCH (13:43)
[2018-09-16] MEDS ORDERED: Ecotrin 325 MG PO ONE (16:06)
[2018-09-16] MEDS: ceLEXa 20 MG PO SCH (21:33)
[2018-09-16] MEDS: ZOCOR 20MG PO SCH (21:33)
[2018-09-16] MEDS: FEOSOL 325 MG PO SCH (21:33)
[2018-09-16] MEDS: Lantus Insulin SQ SCH (21:34)
[2018-09-17] MEDS: Sodium Chloride 0.9% 1000 ML 1,000 ML IV SCH ×2 (00:45→10:48)
[2018-09-17] MEDS: PLAVIX 75 MG Tablet PO SCH (09:43)
[2018-09-17] MEDS: ENOXAPARIN SODIUM SQ SCH (09:43)
[2018-09-17] MEDS: Zestril 5 MG PO SCH (09:43)
[2018-09-17] MEDS: NEURONTIN 300 MG PO SCH (09:43)
--- NOTE | 2018-09-17 12:04 | PCM.DS ---
Discharge Summary Date of Admission: 09/15/18 16:30 Admitting Physician: VIC CAAL Primary Care Provider: MELISSA ALVARES Allergies Allergies Sulfa (Sulfonamide Antibiotics) Adverse Reaction (Verified 09/15/18 13:55) Hospital Summary - Hospital Course Hospital Course: patient admitted with dizziness, concern for tia. nothing acute on MRI, hx of old known CVA. cr improved with hydration and symptoms have resolved since admission, he ambulates with a walker at home and is back to his baseline. - Vitals & Intake/Output Vital Signs: Vital Signs Temperature 98.4 F 09/17/18 04:00 Pulse Rate 65 09/17/18 04:00 Respiratory Rate 15 09/17/18 04:00 Blood Pressure 135/63 09/17/18 04:00 O2 Sat by Pulse Oximetry 94 L 09/17/18 04:00 Intake & Output: Intake & Output 09/15/18 09/16/18 09/17/18 09/18/18 11:59 11:59 11:59 11:59 Intake Total 2279 3628 Output Total 350 1500 Balance 1929 2128 Weight 85.5 kg - Lab Result Diagrams: 09/16/18 02:19 09/16/18 02:19 Lab Results-Last 24 Hrs: Accuchecks Date 09/16/18 Time 21:30 Accucheck Value: 64 Accucheck Value: 122 Accucheck Value: 132 Lab Results-Last 24 Hours 09/16/18 Range/Units 11:25 Hemoglobin A1c 11.04 H (4.5-6.0) % Micro Results-Entire Visit: Microbiology 09/15/18 14:12 Urine Culture - Final Clean Catch Midstream NO GROWTH Accuchecks Date 09/16/18 Time 21:30 Accucheck Value: 64 Accucheck Value: 122 Accucheck Value: 132 - Radiology Exams Ordered Rad Exams-Entire Visit: Radiology Procedures Category Date Time Status CHEST 1 VIEW (PORTABLE) Stat Exams 09/15/18 14:12 Completed HEAD WITHOUT CONTRAST [CT] Stat Exams 09/15/18 14:13 Completed MRI BRAIN W/O CONTRAST [MRI] Routine Exams 09/16/18 09:16 Completed - Procedures and Test Procedures and Tests throughout Hospitalization: Therapy Orders & Screens 09/15/18 17:24 OT Screen per Nursing Assess Comment: Protocol Order Physician Instructions: Greater than 3 points order OT Admission Screening Reason For Exam: Triggered on Admission Diagnosis: TIA Open Wound/Cellutlitis/Pressure Ulcers: Yes Acute Fx/ORIF/Change in wt bearing status: No Severe MUSCULOSKELETAL pain: No ADL Dysfunction: No Acute CVA w/Hemiparesis/Hemiplegia: Yes Decreased Functional Mobility/Strength: No Sprain/Strain: No Acute Post-op Mobility Dysfunction: No Total Points: 10 PT Screen per Nursing Assess ONCE Comment: Protocol Order Physician Instructions: Greater than 3 points order PT Admission Screenin Reason For Exam: Triggered on Admission Diagnosis: TIA Open Wound/Cellutlitis/Pressure Ulcers: Yes Acute Fx/ORIF/Change in wt bearing status: No Severe MUSCULOSKELETAL pain: No ADL Dysfunction: No Acute CVA w/Hemiparesis/Hemiplegia: Yes Decreased Functional Mobility/Strength: No Sprain/Strain: No Acute Post-op Mobility Dysfunction: No Total Points: 10 Discharge Exam General Appearance: no apparent distress Neurologic Exam: alert, oriented x 3, cooperative, sensation nml, No motor deficits, No sensory deficit, No disoriented, No confusion, No facial droop, No slurred speech Eye Exam: PERRL, EOMI, eyes nml inspection Respiratory Exam: normal breath sounds, lungs clear, No respiratory distress Cardiovascular Exam: regular rate/rhythm, normal heart sounds Gastrointestinal/Abdomen Exam: soft Extremity Exam: normal inspection, normal range of motion Skin Exam: normal color, warm, dry Final Diagnosis/Problem List - Final Discharge Diagnosis/Problem (1) Dizziness Current Visit: Yes Status: Acute Code(s): R42 - DIZZINESS AND GIDDINESS (2) Acute on chronic renal failure Current Visit: No Status: Acute Assessment & Plan: improved with hydration, reduce lasix from 40mg bid to once daily. see Dr Caal in 1 week Code(s): N17.9 - ACUTE KIDNEY FAILURE, UNSPECIFIED; N18.9 - CHRONIC KIDNEY DISEASE, UNSPECIFIED (3) History of CVA (cerebrovascular accident) Current Visit: No Status: Acute Assessment & Plan: continue plavix Code(s): Z86.73 - PRSNL HX OF TIA (TIA), AND CEREB INFRC W/O RESID DEFICITS - Discharge Disposition: Home, Self-Care Condition: Stable Prescriptions: Continue Gabapentin 300 mg PO TID Lisinopril 10 mg [Zestril 10 MG] 5 mg PO DAILY Citalopram Hydrobromide [Celexa] 10 mg PO HS Metoprolol Tartrate 150 mg PO LUNCH Clopidogrel Bisulfate 75 mg [PLAVIX 75 MG Tablet] 75 mg PO DAILY Atorvastatin Calcium 40 mg PO HS Ferrous Sulfate [Iron] 325 mg PO HS Insulin Glargine [Lantus Insulin] 22 unit SQ HS 30 Days unit Insulin Aspart [NovoLOG Insulin] 1 units SQ UD PRN unit PRN Reason: HYPERGLYCEMIA Acetaminophen 325 mg [Tylenol 325 mg] 650 mg PO Q4H PRN PRN tablet PRN Reason: Pain And/Or Fever Tramadol HCl 50 mg [Ultram 50 mg] 50 mg PO Q8HPRN PRN tablet PRN Reason: Pain Changed Furosemide 40 mg [Lasix 40 MG] 40 mg PO DAILY #0 Follow up with: MELISSA ALVARES [Primary Care Provider] - 1 Week
[2018-09-17] MEDS: NovoLOG Insulin SQ PRN (12:25)
[2018-09-17] MEDS: Lopressor 50 MG PO SCH (12:25)
[2018-09-17 14:25] VITALS: BP 126/61; PULSE 74; O2SAT 98
== END 2018-09-17 15:20 | disposition home or self-care (01) ==
LOC: ED 13:22 → MED SURG 16:30
PROVIDERS: ADMIT Family Medicine; ATTEND Family Medicine
DX: R42 Dizziness and giddiness (principal); E86.0 Dehydration; N17.9 Acute kidney failure, unspecified; E11.22 Type 2 diabetes mellitus with diabetic chronic kidney disease; I12.9 Hypertensive chronic kidney disease with stage 1 through stage 4 chronic kidney disease, or unspecified chronic kidney disease; N18.3 Chronic kidney disease, stage 3 (moderate); I87.2 Venous insufficiency (chronic) (peripheral); Z86.73 Personal history of transient ischemic attack (TIA), and cerebral infarction without residual deficits; Z79.899 Other long term (current) drug therapy; Z79.01 Long term (current) use of anticoagulants
CPT/HCPCS: 36000; 36415; 70450; 70551; 71045; 80048; 80053; 81001; 82962; 83036; 84484; 85025; 85610; 85652; 87086; 93005; 93041; 93268; 96360; 99285; G0378; J0360; J1650; A9270-GY

== ENCOUNTER 2019-03-12 08:56 | Emergency (ER) | payer MEDICARE, OTHER ==
[2019-03-12 09:11] VITALS: O2SAT 99
--- NOTE | 2019-03-12 09:17 | ERPHSYRPT ---
- History of Present Illness Time Seen by Provider: 03/12/19 09:13 Source: patient Exam Limitations: no limitations Patient Subjective Stated Complaint: Pt was here in outpatient for infusion for foot infection. PICC line in right upper arm would draw which nurse stated was not uncommon but pt had swelling to right hand and wrist. Contacted Dr Sheppard who stated he wanted pt worked up in ER for blood clot. Pt denies pain. Triage Nursing Assessment: Pt skin pink, warm, dry. Alert and oriented x3. Gait steady. Swelling to right hand and wrist. Cap refill <3 sec. Radial pulse present. Physician History: Pt was here in outpatient for infusion for foot infection. PICC line in right upper arm would draw which nurse stated was not uncommon but pt had swelling to right hand and wrist. Contacted Dr Sheppard who stated he wanted pt worked up in ER for blood clot. Pt denies pain. Associated Symptoms: none Allergies/Adverse Reactions: Sulfa (Sulfonamide Antibiotics) Adverse Reaction (Verified 03/12/19 09:12) Swelling Home Medications: Atorvastatin Calcium [Lipitor] 40 mg PO BID 02/22/19 [History] Citalopram Hydrobromide [Celexa] 10 mg PO DAILY 02/22/19 [History] Clopidogrel Bisulfate 75 mg [PLAVIX 75 MG Tablet] 75 mg PO DAILY 02/22/19 [History] Ferrous Sulfate [Iron] 325 mg PO DAILY 02/22/19 [History] Furosemide 40 mg [Lasix 40 MG] 40 mg PO BID 02/22/19 [History] Gabapentin 300 mg PO LUNCH 02/22/19 [History] Gabapentin 300 mg PO QAM 02/22/19 [History] Gabapentin 600 mg PO HS 02/22/19 [History] Insulin Aspart [Novolog] 100 unit SQ TIDWMEALS 02/22/19 [History] Insulin Glargine [Lantus Insulin] 22 unit SQ HS 02/22/19 [History] Lisinopril 5 mg [Zestril 5 MG] 5 mg PO DAILY 02/22/19 [History] Metoprolol Tartrate [Lopressor] 50 mg PO BID 02/22/19 [History] Hx Tetanus, Diphtheria Vaccination/Date Given: Yes (2014) Hx Influenza Vaccination/Date Given: No Hx Pneumococcal Vaccination/Date Given: Yes - Review of Systems Constitutional: No Fever, No Chills Eyes: No Symptoms Ears, Nose, & Throat: No Symptoms Respiratory: No Cough, No Dyspnea Cardiac: No Chest Pain, No Edema, No Syncope Abdominal/Gastrointestinal: No Abdominal Pain, No Nausea, No Vomiting, No Diarrhea Genitourinary Symptoms: No Dysuria Musculoskeletal: No Back Pain, No Neck Pain Skin: Other (right upper extrimity swelling, hand swelling), No Rash Neurological: No Dizziness, No Focal Weakness, No Sensory Changes Psychological: No Symptoms Endocrine: No Symptoms All Other Systems: Reviewed and Negative - Past Medical History Pertinent Past Medical History: Yes Neurological History: Stroke ENT History: No Pertinent History Cardiac History: No Pertinent History Respiratory History: No Pertinent History Endocrine Medical History: Diabetes Type II Musculoskeletal History: Arthritis GI Medical History: No Pertinent History History: Renal Disease Psycho-Social History: No Pertinent History Male Reproductive Disorders: No Pertinent History 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%" - Past Surgical History Past Surgical History: Yes Neuro Surgical History: No Pertinent History Cardiac: No Pertinent History Respiratory: No Pertinent History Gastrointestinal: No Pertinent History Genitourinary: No Pertinent History Musculoskeletal: No Pertinent History, Orthopedic Surgery Male Surgical History: No Pertinent History Other Surgical History: Callus removed from ball of right foot; 2ND DIGIT RIGHT FOOT REMOVED - Social History Smoking Status: Never smoker Exposure to second hand smoke: No Drug Use: none Patient Lives Alone: Yes - Nursing Vital Signs Nursing Vital Signs: Initial Vital Signs Temperature 98.6 F 03/12/19 08:59 Pulse Rate 95 H 03/12/19 08:59 Respiratory Rate 18 03/12/19 08:59 Blood Pressure 202/91 03/12/19 08:59 O2 Sat by Pulse Oximetry 99 03/12/19 08:59 Pain Scale Pain Intensity 0 - Physical Exam General Appearance: alert Eyes, Ears, Nose, Throat Exam: moist mucous membranes Neck Exam: non-tender, supple Cardiovascular/Respiratory Exam: chest non-tender, normal breath sounds, regular rate/rhythm, no respiratory distress Abdominal Exam: non-tender, No guarding Back Exam: normal inspection, No vertebral tenderness Wrist Exam: nodules, soft tissue tenderness Neuro/Tendon Exam: normal sensation, normal motor functions Mental Status Exam: alert, oriented x 3, cooperative Skin Exam: normal color, warm, dry SpO2 Interpretation: normal SpO2: 99 O2 Delivery: Room Air - Course Nursing assessment & vital signs reviewed: Yes - Radiology Ultrasound Exam Venous Upper Extremity Ultrasound: tele radiology report (negative) Ordered Tests: Active Orders 24 hr Category Date Time Status IV Insertion STAT Care 03/12/19 10:22 Active VENOUS UNILAT/LIMITED EXTREMIT [US] Stat Exams 03/12/19 Ordered - Progress Progress: improved Counseled pt/family regarding: diagnosis, need for follow-up, rad results - Departure Departure Disposition: Home Clinical Impression: Swelling of right upper extremity Condition: Stable Critical Care Time: No Referrals: MIREILLE BRADSHAW [Primary Care Provider] -
[2019-03-12 10:56] VITALS: BP 201/52; PULSE 85
--- NOTE | 2019-03-12 20:24 | XRAY ---
Indication: Right arm swelling. PICC line placement. 2-dimensional sonogram and color Doppler imaging of the major venous vessels of the right upper extremity was performed. Comparison: None No thrombus seen in the visualized right jugular, subclavian, axillary, brachial, basilic, cephalic, median cubital, radial, and ulnar veins. Veins demonstrate normal compressibility. PICC line is in the basilic vein. Impression: Right upper extremity negative for DVT. Comment: Preliminary report was given.
== END 2019-03-12 11:32 | disposition home or self-care (01) ==
LOC: ED 08:56
DX: M25.441 Effusion, right hand (principal); M25.431 Effusion, right wrist; Z98.890 Other specified postprocedural states
CPT/HCPCS: 36000; 93971; 99284

== ENCOUNTER 2019-04-07 10:48 | Emergency (ER) | payer MEDICARE, OTHER ==
--- NOTE | 2019-04-07 10:51 | ERPHSYRPT ---
- History of Present Illness Time Seen by Provider: 04/07/19 10:51 Source: patient, family Exam Limitations: no limitations Physician History: 83 y/o diabetic white male with h/o htn on plavix presents with weakness for 2 to 3 weeks. worse in last 2 days. pt is being tx for osteomyelitis with outpt iv daptomycin antibx. infusion has been for 6 weeks. pts pulse ox was 89% on room air. pt denies cp, denies abd pain. Timing/Duration: week(s) (2 to 3 ) Severity: moderate Associated Symptoms: weakness Allergies/Adverse Reactions: Sulfa (Sulfonamide Antibiotics) Adverse Reaction (Verified 04/07/19 10:55) Swelling Home Medications: Atorvastatin Calcium [Lipitor] 40 mg PO DAILY 02/22/19 [History] Citalopram Hydrobromide [Celexa] 10 mg PO DAILY 02/22/19 [History] Clopidogrel Bisulfate 75 mg [PLAVIX 75 MG Tablet] 75 mg PO DAILY 02/22/19 [History] Ferrous Sulfate [Iron] 325 mg PO DAILY 02/22/19 [History] Furosemide 40 mg [Lasix 40 MG] 40 mg PO DAILY 02/22/19 [History] Gabapentin 300 mg PO HS 02/22/19 [History] Gabapentin 300 mg PO QAM 02/22/19 [History] Insulin Aspart [Novolog] 8 unit SQ TIDWMEALS 02/22/19 [History] Insulin Glargine [Lantus Insulin] 22 unit SQ DAILY 02/22/19 [History] Metoprolol Tartrate [Lopressor] 50 mg PO DAILY 02/22/19 [History] Hx Tetanus, Diphtheria Vaccination/Date Given: Yes (2014) Hx Influenza Vaccination/Date Given: No Hx Pneumococcal Vaccination/Date Given: Yes - Review of Systems Constitutional: Weakness Eyes: No Symptoms Ears, Nose, & Throat: No Symptoms Respiratory: No Symptoms Cardiac: No Symptoms Abdominal/Gastrointestinal: No Symptoms Genitourinary Symptoms: No Symptoms Musculoskeletal: No Symptoms Skin: No Symptoms Neurological: No Symptoms Psychological: No Symptoms Endocrine: No Symptoms Hematologic/Lymphatic: No Symptoms Immunological/Allergic: No Symptoms All Other Systems: Reviewed and Negative - Past Medical History Pertinent Past Medical History: Yes Neurological History: Stroke ENT History: No Pertinent History Cardiac History: No Pertinent History Respiratory History: No Pertinent History Endocrine Medical History: Diabetes Type II Musculoskeletal History: Arthritis GI Medical History: No Pertinent History History: Renal Disease Psycho-Social History: No Pertinent History Male Reproductive Disorders: No Pertinent History 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%" - Past Surgical History Past Surgical History: Yes Neuro Surgical History: No Pertinent History Cardiac: No Pertinent History Respiratory: No Pertinent History Gastrointestinal: No Pertinent History Genitourinary: No Pertinent History Musculoskeletal: No Pertinent History, Orthopedic Surgery Male Surgical History: No Pertinent History Other Surgical History: Callus removed from ball of right foot; 2ND DIGIT RIGHT FOOT REMOVED - Social History Smoking Status: Never smoker Exposure to second hand smoke: No Drug Use: none Patient Lives Alone: Yes - Nursing Vital Signs Nursing Vital Signs: Initial Vital Signs Temperature 98.4 F 04/07/19 10:56 Pulse Rate 76 04/07/19 10:56 Respiratory Rate 18 04/07/19 10:56 Blood Pressure 142/62 04/07/19 10:56 O2 Sat by Pulse Oximetry 94 L 04/07/19 10:56 Pain Scale Pain Intensity 0 - Physical Exam General Appearance: no apparent distress, alert, anxiety Eye Exam: PERRL/EOMI, eyes nml inspection Ears, Nose, Throat Exam: normal ENT inspection, moist mucous membranes Neck Exam: normal inspection, non-tender, supple, full range of motion Respiratory Exam: normal breath sounds, lungs clear, airway intact, No chest tenderness, No respiratory distress Cardiovascular Exam: regular rate/rhythm, normal heart sounds, normal peripheral pulses Gastrointestinal/Abdomen Exam: soft, normal bowel sounds, No tenderness Rectal Exam: not done Back Exam: normal inspection, normal range of motion, No CVA tenderness, No vertebral tenderness Extremity Exam: normal inspection, normal range of motion, No pelvis stable Neurologic Exam: alert, oriented x 3, cooperative, apron trimmer II-XII nml as tested Skin Exam: normal color, warm, dry Lymphatic Exam: No adenopathy SpO2 Interpretation: normal O2 Delivery: Room Air - Course Nursing assessment & vital signs reviewed: Yes EKG Interpreted by Me: RATE (74), Sinus Rhythm, NORMAL AXIS, NORMAL INTERVALS, NORMAL QRS, Other (no acute ischemia, no change from comparison ekg dated ) Ordered Tests: Active Orders 24 hr Category Date Time Status ACCUCHECK [Accucheck] STAT Care 04/07/19 11:14 Active EKG-ER Only STAT Care 04/07/19 11:14 Active IV Insertion STAT Care 04/07/19 11:14 Active Oxygen-ED Only Nasal Cannula 2 lpm Care 04/07/19 11:14 Active Pulse Oximetry (ED) STAT Care 04/07/19 11:42 Active CHEST 1 VIEW (PORTABLE) Stat Exams 04/07/19 11:43 Completed ARTERIAL BLOOD GASES Stat Lab 04/07/19 11:42 Completed BLOOD CULTURE Stat Lab 04/07/19 12:50 Received CBC W DIFF Stat Lab 04/07/19 11:50 Completed CMP Stat Lab 04/07/19 11:50 Completed Lactic Acid Stat Lab 04/07/19 11:42 Completed [place] Screen Stat Lab 04/07/19 11:55 Completed NT PRO BNP Stat Lab 04/07/19 11:50 Completed PROTIME WITH INR Stat Lab 04/07/19 11:50 Completed TROPONIN Q3H Lab 04/07/19 11:55 Completed TROPONIN Q3H Lab 04/07/19 14:45 Ordered TROPONIN Q3H Lab 04/07/19 17:45 Ordered TROPONIN Q3H Lab 04/07/19 20:45 Ordered TROPONIN Q3H Lab 04/07/19 23:45 Ordered UA W/RFX UR CULTURE Stat Lab 04/07/19 13:47 Completed Medication Summary Discontinued Medications Generic Name Dose Route Start Last Admin Trade Name Freq PRN Reason Stop Dose Admin Furosemide 40 mg 04/07/19 13:53 04/07/19 14:01 Lasix 40 Mg/4 Ml IV 04/07/19 13:54 40 mg STAT ONE Administration Furosemide Confirm 04/07/19 14:00 Lasix 40 Mg/4 Ml Administered 04/07/19 14:01 Dose 40 mg .ROUTE .STK-MED ONE Sodium Chloride 1,000 mls @ 999 mls/hr 04/07/19 11:42 04/07/19 14:06 Sodium Chloride 0.9% 1000 Ml IV 04/07/19 12:42 Infused .Q1H1M STA Infusion Sodium Chloride Confirm 04/07/19 11:51 Sodium Chloride 0.9% 1000 Ml Administered 04/07/19 11:52 Dose 1,000 mls @ ud .ROUTE .STK-MED ONE Lab/Rad Data: Laboratory Result Diagrams 04/07/19 11:50 04/07/19 11:50 Laboratory Results 04/07/19 04/07/19 04/07/19 Range/Units 13:47 11:55 11:55 WBC (4.0-10.5) K/mm3 RBC (4.1-5.6) M/mm3 Hgb (12.5-18.0) gm/dl Hct (42-50) % MCV (78-100) fl MCH (26-32) pg MCHC (32-36) g/dl RDW (11.5-14.0) % Plt Count (150-450) K/mm3 MPV (7.5-11.0) fl Gran % (36.0-66.0) % Eos # (Auto) (0-0.5) Absolute Lymphs (auto) (1.0-4.6) Absolute Monos (auto) (0.0-1.3) Lymphocytes % (24.0-44.0) % Monocytes % (0.0-12.0) % Eosinophils % (0.00-5.0) % Basophils % (0.0-0.4) % Absolute Granulocytes (1.4-6.9) Basophils # (0-0.4) PT (8.83-12.87) SECONDS INR (0.8-3.0) Puncture Site pCO2 (35-45) mmHg pO2 (75-100) mmHg Base Excess (-2.0-2.0) O2 Saturation (94-100) g/dF ABG pH (7.35-7.45) ABG HCO3 (22-28) ABG O2 Sat (Measured) (95-100) % Edgardo Test A-a Gradient a/A Ratio Hemoglobin Carboxyhemoglobin (0.0-6.9) % THgb Methemoglobin (1.4-1.5) % Potassium (3.5-5.1) Temperature C POC O2 Flow Rate % Sodium (137-145) mmol/L Chloride (98-107) mmol/L Carbon Dioxide (22-30) mmol/L Anion Gap (5-15) MEQ/L BUN (9-20) mg/dL Creatinine (0.66-1.25) mg/dL Estimated GFR ML/MIN Glucose (74-106) mg/dL Lactic Acid (0.4-2.0) Calcium (8.4-10.2) mg/dL Total Bilirubin (0.2-1.3) mg/dL AST (17-59) U/L ALT (0-50) U/L Alkaline Phosphatase (38-126) U/L Troponin I (0.000-0.034) ng/mL NT-Pro-B Natriuret Pep (0-1800) pg/mL Serum Total Protein (6.3-8.2) g/dL Albumin (3.5-5.0) g/dL Urine Color YELLOW (YELLOW) Urine Appearance CLEAR (CLEAR) Urine pH 5.0 (5-6) Ur Specific Comins 1.011 (1.005-1.025) Urine Protein NEGATIVE (Negative) Urine Ketones NEGATIVE (NEGATIVE) Urine Blood SMALL (0-5) Pérez/ul Urine Nitrite NEGATIVE (NEGATIVE) Urine Bilirubin NEGATIVE (NEGATIVE) Urine Urobilinogen NEGATIVE (0-1) mg/dL Ur Leukocyte Esterase NEGATIVE (NEGATIVE) Urine WBC (Auto) NONE (0-5) /HPF Urine RBC (Auto) 3-5 (0-2) /HPF U Hyaline Cast (Auto) 6-10 (0-2) /LPF U Epithel Cells (Auto) NONE (FEW) /HPF Urine Bacteria (Auto) NONE (NEGATIVE) /HPF Urine Mucus (Auto) SLIGHT (NEGATIVE) /HPF Urine Culture Reflexed NO (NO) Urine Glucose 50 (NEGATIVE) mg/dL Monoscreen NEGATIVE (Negative) Influenza Type A Ag NEGATIVE (NEGATIVE) Influenza Type B Ag NEGATIVE (NEGATIVE) RSV (PCR) NEGATIVE (Negative) 04/07/19 04/07/19 04/07/19 Range/Units 11:55 11:50 11:50 WBC (4.0-10.5) K/mm3 RBC (4.1-5.6) M/mm3 Hgb (12.5-18.0) gm/dl Hct (42-50) % MCV (78-100) fl MCH (26-32) pg MCHC (32-36) g/dl RDW (11.5-14.0) % Plt Count (150-450) K/mm3 MPV (7.5-11.0) fl Gran % (36.0-66.0) % Eos # (Auto) (0-0.5) Absolute Lymphs (auto) (1.0-4.6) Absolute Monos (auto) (0.0-1.3) Lymphocytes % (24.0-44.0) % Monocytes % (0.0-12.0) % Eosinophils % (0.00-5.0) % Basophils % (0.0-0.4) % Absolute Granulocytes (1.4-6.9) Basophils # (0-0.4) PT 16.3 H (8.83-12.87) SECONDS INR 1.43 (0.8-3.0) Puncture Site pCO2 (35-45) mmHg pO2 (75-100) mmHg Base Excess (-2.0-2.0) O2 Saturation (94-100) g/dF ABG pH (7.35-7.45) ABG HCO3 (22-28) ABG O2 Sat (Measured) (95-100) % Edgardo Test A-a Gradient a/A Ratio Hemoglobin Carboxyhemoglobin (0.0-6.9) % THgb Methemoglobin (1.4-1.5) % Potassium 4.3 (3.5-5.1) Temperature C POC O2 Flow Rate % Sodium 135 L (137-145) mmol/L Chloride 95 L (98-107) mmol/L Carbon Dioxide 31 H (22-30) mmol/L Anion Gap 12.5 (5-15) MEQ/L BUN 33 H (9-20) mg/dL Creatinine 1.76 H (0.66-1.25) mg/dL Estimated GFR 39.6 ML/MIN Glucose 196 H (74-106) mg/dL Lactic Acid (0.4-2.0) Calcium 9.3 (8.4-10.2) mg/dL Total Bilirubin 0.50 (0.2-1.3) mg/dL AST 31 (17-59) U/L ALT 29 (0-50) U/L Alkaline Phosphatase 113 (38-126) U/L Troponin I < 0.012 (0.000-0.034) ng/mL NT-Pro-B Natriuret Pep 2160 H (0-1800) pg/mL Serum Total Protein 7.0 (6.3-8.2) g/dL Albumin 3.0 L (3.5-5.0) g/dL Urine Color (YELLOW) Urine Appearance (CLEAR) Urine pH (5-6) Ur Specific Comins (1.005-1.025) Urine Protein (Negative) Urine Ketones (NEGATIVE) Urine Blood (0-5) Pérez/ul Urine Nitrite (NEGATIVE) Urine Bilirubin (NEGATIVE) Urine Urobilinogen (0-1) mg/dL Ur Leukocyte Esterase (NEGATIVE) Urine WBC (Auto) (0-5) /HPF Urine RBC (Auto) (0-2) /HPF U Hyaline Cast (Auto) (0-2) /LPF U Epithel Cells (Auto) (FEW) /HPF Urine Bacteria (Auto) (NEGATIVE) /HPF Urine Mucus (Auto) (NEGATIVE) /HPF Urine Culture Reflexed (NO) Urine Glucose (NEGATIVE) mg/dL Monoscreen (Negative) Influenza Type A Ag (NEGATIVE) Influenza Type B Ag (NEGATIVE) RSV (PCR) (Negative) 04/07/19 04/07/19 Range/Units 11:50 11:42 WBC 9.1 (4.0-10.5) K/mm3 RBC 3.61 L (4.1-5.6) M/mm3 Hgb 10.4 L (12.5-18.0) gm/dl Hct 32.5 L (42-50) % MCV 90.0 (78-100) fl MCH 28.8 (26-32) pg MCHC 32.0 (32-36) g/dl RDW 14.1 H (11.5-14.0) % Plt Count 334 (150-450) K/mm3 MPV 9.4 (7.5-11.0) fl Gran % 73.0 H (36.0-66.0) % Eos # (Auto) 0.90 H (0-0.5) Absolute Lymphs (auto) 0.65 L (1.0-4.6) Absolute Monos (auto) 0.88 (0.0-1.3) Lymphocytes % 7.2 L (24.0-44.0) % Monocytes % 9.7 (0.0-12.0) % Eosinophils % 9.9 H (0.00-5.0) % Basophils % 0.2 (0.0-0.4) % Absolute Granulocytes 6.64 (1.4-6.9) Basophils # 0.02 (0-0.4) PT (8.83-12.87) SECONDS INR (0.8-3.0) Puncture Site LEFT RADIAL pCO2 46 H (35-45) mmHg pO2 64 L (75-100) mmHg Base Excess 4.5 H (-2.0-2.0) O2 Saturation 92.1 L (94-100) g/dF ABG pH 7.42 (7.35-7.45) ABG HCO3 29.8 H* (22-28) ABG O2 Sat (Measured) 93.9 L (95-100) % Edgardo Test yes A-a Gradient 78 a/A Ratio 0.45 Hemoglobin 10.7 Carboxyhemoglobin 1.3 (0.0-6.9) % THgb Methemoglobin 0.6 L (1.4-1.5) % Potassium 4.1 (3.5-5.1) Temperature 37.0 C POC O2 Flow Rate 28 % Sodium (137-145) mmol/L Chloride (98-107) mmol/L Carbon Dioxide (22-30) mmol/L Anion Gap (5-15) MEQ/L BUN (9-20) mg/dL Creatinine (0.66-1.25) mg/dL Estimated GFR ML/MIN Glucose (74-106) mg/dL Lactic Acid 0.6 (0.4-2.0) Calcium (8.4-10.2) mg/dL Total Bilirubin (0.2-1.3) mg/dL AST (17-59) U/L ALT (0-50) U/L Alkaline Phosphatase (38-126) U/L Troponin I (0.000-0.034) ng/mL NT-Pro-B Natriuret Pep (0-1800) pg/mL Serum Total Protein (6.3-8.2) g/dL Albumin (3.5-5.0) g/dL Urine Color (YELLOW) Urine Appearance (CLEAR) Urine pH (5-6) Ur Specific Comins (1.005-1.025) Urine Protein (Negative) Urine Ketones (NEGATIVE) Urine Blood (0-5) Pérez/ul Urine Nitrite (NEGATIVE) Urine Bilirubin (NEGATIVE) Urine Urobilinogen (0-1) mg/dL Ur Leukocyte Esterase (NEGATIVE) Urine WBC (Auto) (0-5) /HPF Urine RBC (Auto) (0-2) /HPF U Hyaline Cast (Auto) (0-2) /LPF U Epithel Cells (Auto) (FEW) /HPF Urine Bacteria (Auto) (NEGATIVE) /HPF Urine Mucus (Auto) (NEGATIVE) /HPF Urine Culture Reflexed (NO) Urine Glucose (NEGATIVE) mg/dL Monoscreen (Negative) Influenza Type A Ag (NEGATIVE) Influenza Type B Ag (NEGATIVE) RSV (PCR) (Negative) - Progress Progress: improved, re-examined Progress Note: 04/07/19 14:20 cxr-changes c/w chf. no acute infiltrate. per pt daughter, pt suppose to be taking lasix bid but only taking once daily. pt wants to try outpt tx. will increase his lasix medication to 40mg po bid for 3 days then back to daily. 04/07/19 14:23 Counseled pt/family regarding: lab results, diagnosis, need for follow-up, rad results - Departure Departure Disposition: Home Clinical Impression: CHF (congestive heart failure), Weakness Condition: Stable Critical Care Time: Yes Referrals: MELISSA ALVARES [Primary Care Provider] - Instructions: Heart Failure Additional Instructions: increase your Furosemide to 40mg orally 2 times daily for 3 days then decrease to daily. follow up with primary doctor on wednesday04/10/2019
[2019-04-07] MEDS ORDERED: Sodium Chloride 0.9% 1000 ML 1,000 ML IV STA (11:42)
[2019-04-07] MEDS ORDERED: Sodium Chloride 0.9% 1000 ML 1,000 ML ONE (11:51)
[2019-04-07 12:05] LABS: Absolute Neutrophil Ct (ANC) 6.64 (1.4-6.9); BASOPHIL % 0.2 % (0.0-0.4); Basophil (Absolute #) 0.02 (0-0.4); Eosinophil % 9.9 % (0.00-5.0); Hematocrit 32.5 % (42-50); Hemoglobin 10.4 gm/dl (12.5-18.0); Lymphocyte (Absolute #) 0.65 (1.0-4.6); Lymphocytes % 7.2 % (24.0-44.0); Mean Corpuscular Hemoglobin 28.8 pg (26-32); Mean Platelet Volume 9.4 fl (7.5-11.0); Monocyte (Absolute #) 0.88 (0.0-1.3); Monocytes % 9.7 % (0.0-12.0); Platelet Count 334 K/mm3 (150-450); Red Blood Count 3.61 M/mm3 (4.1-5.6); Red Cell Distribution Width 14.1 % (11.5-14.0); White Blood Count 9.1 K/mm3 (4.0-10.5)
[2019-04-07 12:27] LABS: ANION GAP 12.5 MEQ/L (5-15); BILIRUBIN,TOTAL 0.5 mg/dL (0.2-1.3); Calcium 9.3 mg/dL (8.4-10.2); Creatinine 1 1.76 mg/dL (0.66-1.25); Potassium 4.3 mmol/L (3.5-5.1)
[2019-04-07 12:30] LABS: A-aADO2 78; ABG HEMOGLOBIN 10.7; ABG POTASSIUM 4.1 (3.5-5.1); ARTERIAL BLD GAS O2 SATURATION 93.9 % (95-100); ARTERIAL BLOOD GAS BASE EXCESS 4.5 (-2.0-2.0); ARTERIAL BLOOD GAS FIO2 28 %; ARTERIAL BLOOD GAS PCO2 46 mmHg (35-45); ARTERIAL BLOOD GAS PO2 64 mmHg (75-100); ARTERIAL BLOOD GAS pH 7.42 (7.35-7.45); CARBOXYHEMOGLOBIN 1.3 % THgb (0.0-6.9); HCO3- 29.8 (22-28); HGB O2 SAT 92.1 g/dF (94-100); Lactic Acid 0.6 (0.4-2.0); Methhemoglobin 0.6 % (1.4-1.5); paO2 pAO1 0.45
[2019-04-07 12:45] LABS: ABG SITE LEFT RADIAL; ALLEN TEST OK? yes
[2019-04-07 12:49] LABS: INR 1.43 (0.8-3.0); PROTIME 16.3 SECONDS (8.83-12.87)
--- NOTE | 2019-04-07 12:52 | XRAY ---
Indication: Short of breath. Comparison: September 15, 2018. Portable chest demonstrates new diffuse right lung airspace disease with small effusion. Lesser degree patchy left lung airspace disease without consolidation/large effusion. Heart is not enlarged with new right arm PICC line.
[2019-04-07 12:58] LABS: INFLUENZA A NEGATIVE (NEGATIVE); INFLUENZA B NEGATIVE (NEGATIVE); RESPIRATORY SYNCTIAL VIRUS NEGATIVE (Negative)
[2019-04-07] MEDS ORDERED: Lasix 40 MG/4 ML IV ONE (13:53)
[2019-04-07] MEDS ORDERED: Lasix 40 MG/4 ML ONE (14:00)
[2019-04-07 14:04] LABS: Appearance CLEAR (CLEAR); Bilirubin NEGATIVE (NEGATIVE); Blood SMALL Ery/ul (0-5); Glucose 50 mg/dL (NEGATIVE); Ketones NEGATIVE (NEGATIVE); Leukocyte Esterase NEGATIVE (NEGATIVE); Mucus SLIGHT /HPF (NEGATIVE); Nitrite NEGATIVE (NEGATIVE); Protein,Urine Dip NEGATIVE (Negative); Specific Gravity 1.011 (1.005-1.025); Urobilinogen NEGATIVE mg/dL (0-1)
[2019-04-07 15:34] VITALS: BP 150/85; PULSE 80; O2SAT 93
== END 2019-04-07 15:34 | disposition home or self-care (01) ==
LOC: ED 10:48
DX: I50.9 Heart failure, unspecified (principal); R53.1 Weakness; M86.9 Osteomyelitis, unspecified; E11.9 Type 2 diabetes mellitus without complications; N28.9 Disorder of kidney and ureter, unspecified; M19.90 Unspecified osteoarthritis, unspecified site; Z79.899 Other long term (current) drug therapy
CPT/HCPCS: 36000; 36415; 36591; 36600; 71045; 80053; 81001; 82375; 82607; 82746; 82803; 82962; 83605; 83880; 84443; 84484; 85025; 85610; 86308; 87040; 87631; 93005; 94760; 96360; 96374; 99211; 99284; J0878; J1642; J1940

== ENCOUNTER 2019-11-27 17:34 | Emergency (ER) | payer MEDICARE, OTHER ==
--- NOTE | 2019-11-27 18:33 | ERPHSYRPT ---
- History of Present Illness Time Seen by Provider: 11/27/19 17:50 Source: patient Exam Limitations: no limitations Patient Subjective Stated Complaint: pt reports tripping while going down 4 stairs causing him to hit back of head; denies LOC Triage Nursing Assessment: a/ox4; resp non labored and regular; skin p/w/d; abrasion noted to left thumb and occipital area of head; bleeding controlled Physician History: Is an 83-year-old white male who was walking down the stairs with his walker. He forgot to lock the wheels of the walker and a gave way he hit his head. He did not lose consciousness. He also injured his left thumb superficially with an abrasion/skin tear. Patient is on Plavix and his family desires to have him evaluated.. Patient denies chest pain. Patient denies abdominal pain. Occurred: just prior to arrival Reason for Fall: lost balance (When his walker gave way) Injuries/Pain Location: head, upper extremity (Left thumb skin tear) Loss of Consciousness: no loss of consciousness Quality: aching Severity of Pain-Max: mild Severity of Pain-Current: none Associated Symptoms (Fall): extremity injury (Skin tear left thumb) Allergies/Adverse Reactions: sulfamethoxazole [From Bactrim] Allergy (Intermediate, Verified 05/18/19 12:07) Swelling trimethoprim [From Bactrim] Allergy (Intermediate, Verified 05/18/19 12:07) Swelling Sulfa (Sulfonamide Antibiotics) Adverse Reaction (Intermediate, Verified 05/18/19 12:07) Swelling Home Medications: Atorvastatin Calcium [Lipitor] 40 mg PO DAILY 02/22/19 [History] Citalopram Hydrobromide [Celexa] 10 mg PO DAILY 02/22/19 [History] Clopidogrel Bisulfate 75 mg [PLAVIX 75 MG Tablet] 75 mg PO DAILY 02/22/19 [History] Ferrous Sulfate [Iron] 325 mg PO DAILY 02/22/19 [History] Furosemide 40 mg [Lasix 40 MG] 40 mg PO DAILY 02/22/19 [History] Gabapentin 300 mg PO HS 02/22/19 [History] Gabapentin 300 mg PO QAM 02/22/19 [History] Insulin Aspart [Novolog] 8 unit SQ TIDWMEALS 02/22/19 [History] Insulin Glargine [Lantus Insulin] 22 unit SQ DAILY 02/22/19 [History] Metoprolol Tartrate [Lopressor] 50 mg PO DAILY 02/22/19 [History] Hx Tetanus, Diphtheria Vaccination/Date Given: Yes Hx Influenza Vaccination/Date Given: Yes Hx Pneumococcal Vaccination/Date Given: Yes Immunizations Up to Date: Yes Travel Risk - International Travel Have you traveled outside of the country in past 3 weeks: No - Coronavirus Screening Are you exhibiting any of the following symptoms?: No Close contact with a COVID-19 positive Pt in past 14-21 Days: No - Review of Systems Constitutional: No Symptoms Eyes: No Symptoms Ears, Nose, & Throat: No Symptoms Respiratory: No Symptoms Cardiac: No Symptoms Abdominal/Gastrointestinal: No Symptoms Genitourinary Symptoms: No Symptoms Musculoskeletal: No Symptoms Skin: Other (Region to posterior scalp. No laceration present. Skin tear of left thumb.) Neurological: No Symptoms Psychological: No Symptoms Endocrine: No Symptoms Hematologic/Lymphatic: No Symptoms Immunological/Allergic: No Symptoms All Other Systems: Reviewed and Negative - Past Medical History Pertinent Past Medical History: Yes Neurological History: Stroke ENT History: No Pertinent History Cardiac History: Hypertension Respiratory History: No Pertinent History Endocrine Medical History: Diabetes Type II Musculoskeletal History: Arthritis GI Medical History: No Pertinent History History: Renal Disease Psycho-Social History: No Pertinent History Male Reproductive Disorders: No Pertinent History 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%" - Past Surgical History Past Surgical History: Yes Neuro Surgical History: No Pertinent History Cardiac: No Pertinent History Respiratory: No Pertinent History Gastrointestinal: No Pertinent History Genitourinary: No Pertinent History Musculoskeletal: No Pertinent History, Orthopedic Surgery Male Surgical History: No Pertinent History Other Surgical History: Callus removed from ball of right foot; 2ND DIGIT RIGHT FOOT REMOVED - Social History Smoking Status: Never smoker Exposure to second hand smoke: No Drug Use: none Patient Lives Alone: Yes - Nursing Vital Signs Nursing Vital Signs: Initial Vital Signs Temperature 98.9 F 11/27/19 17:37 Pulse Rate 76 11/27/19 17:37 Respiratory Rate 16 11/27/19 17:37 Blood Pressure 147/65 11/27/19 17:37 O2 Sat by Pulse Oximetry 94 L 11/27/19 17:37 Pain Scale Pain Intensity 2 - [place] Coma Score Best Eye Response (Adria): (4) open spontaneously Best Verbal Response (Adria): (5) oriented Best Motor Response (Adria): (6) obeys commands [place] Total: 15 - Physical Exam General Appearance: no apparent distress, alert Head Injury: tenderness (Mild area of abrasion on the back of his scalp) Eye Exam: PERRL/EOMI, eyes nml inspection ENT Exam: airway nml, nml ext.inspection, hearing grossly normal, No dental injury Neck Exam: supple, trachea midline, full range of motion, normal alignment, normal inspection Respiratory/Chest Exam: normal breath sounds, No chest tenderness, No respiratory distress Cardiovascular Exam: normal heart sounds, regular rate/rhythm Gastrointestinal Exam: soft, normal bowel sounds, No tenderness Rectal Exam: not done Back Exam: normal inspection, normal range of motion, No CVA tenderness, No vertebral tenderness Extremity Exam: normal range of motion, other (skin tear left thumb. Full range of motion. Neurovascularly intact. 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 Counseled pt/family regarding: diagnosis, need for follow-up, rad results - Departure Departure Disposition: Home Clinical Impression: Head injury, Fall with injury, Skin tear Condition: Stable Critical Care Time: No Referrals: [facility] [Primary Care Provider] - Additional Instructions: Keep left thumb skin tear repair dry for 36 hours. May wash daily after 36 hours. Follow-up with your primary care physician as needed.
[2019-11-27 18:48] VITALS: BP 158/73; PULSE 72; O2SAT 96
--- NOTE | 2019-11-28 08:35 | XRAY ---
Indication: Pain following fall. Multiple contiguous axial images obtained through the head without contrast. Comparison: September 15, 2018. Stable age-appropriate global atrophy, minimal periventricular degenerative micro-ischemia, and small focus old left cerebellar infarct. No acute intracranial hemorrhage, abnormal extra-axial fluid collection, or mass effect. Fourth ventricle is midline without hydrocephalus. Bony calvarium intact. Visualized paranasal sinuses and mastoid air cells are clear. Impression: Continued nonacute senile brain with old left cerebellar infarct.
== END 2019-11-27 19:01 | disposition home or self-care (01) ==
LOC: ED 17:34
DX: S09.90XA Unspecified injury of head, initial encounter (principal); T14.8XXA Other injury of unspecified body region, initial encounter; W10.8XXA Fall (on) (from) other stairs and steps, initial encounter; Y93.01 Activity, walking, marching and hiking; Y92.9 Unspecified place or not applicable; S60.312A Abrasion of left thumb, initial encounter; Z79.899 Other long term (current) drug therapy
CPT/HCPCS: 70450; 99283

== ENCOUNTER 2020-05-23 10:38 | Inpatient (IN) | payer MEDICARE, OTHER ==
[2020-05-23] MEDS ORDERED: TYLENOL 325 MG PO STA (10:56)
[2020-05-23] MEDS ORDERED: MOTRIN 600 MG PO STA (10:56)
[2020-05-23] MEDS ORDERED: Sodium Chloride 0.9% 1000 ML 1,000 ML IV STA (10:56)
[2020-05-23] MEDS ORDERED: TYLENOL 325 MG ONE (11:06)
[2020-05-23] MEDS ORDERED: MOTRIN 600 MG ONE (11:06)
[2020-05-23] MEDS ORDERED: Sodium Chloride 0.9% 1000 ML 1,000 ML ONE (11:06)
--- NOTE | 2020-05-23 11:09 | ERPHSYRPT ---
- History of Present Illness Time Seen by Provider: 05/23/20 10:55 Source: patient Physician History: Patient is a 84-year-old male presents to our ED for evaluation of possible sepsis. Patient is known to have osteomyelitis of his right foot. Patient currently receiving outpatient antibiotic infusion. Patient reported for his outpatient antibiotic infusion this morning. Patient was found to be febrile. Patient's nurse practitioner was notified and was instructed to come to our ED for further evaluation. Patient states that he had dry heaving earlier this morning. Otherwise feels fine. No chest pain or shortness of breath. No vomiting. No diarrhea. No rash. Symptoms are mild to moderate in intensity. No specific worsening or improving factors. Patient voices no other complaints or concerns at this time. Timing/Duration: today Severity: moderate Modifying Factors: Improves With: nothing Associated Symptoms: denies symptoms Allergies/Adverse Reactions: sulfamethoxazole [From Bactrim] Allergy (Intermediate, Verified 05/23/20 10:49) Swelling trimethoprim [From Bactrim] Allergy (Intermediate, Verified 05/23/20 10:49) Swelling Sulfa (Sulfonamide Antibiotics) Adverse Reaction (Intermediate, Verified 05/23/20 10:49) Swelling Home Medications: Atorvastatin Calcium [Lipitor] 40 mg PO DAILY 02/22/19 [History] Citalopram Hydrobromide [Celexa] 10 mg PO DAILY 02/22/19 [History] Clopidogrel Bisulfate 75 mg [PLAVIX 75 MG Tablet] 75 mg PO DAILY 02/22/19 [History] Ferrous Sulfate [Iron] 325 mg PO DAILY 02/22/19 [History] Furosemide 40 mg [Lasix 40 MG] 40 mg PO BID 02/22/19 [History] Gabapentin 300 mg PO HS 02/22/19 [History] Gabapentin 300 mg PO QAM 02/22/19 [History] Insulin Aspart [Novolog] 8 unit SQ TIDWMEALS 02/22/19 [History] Insulin Glargine [Lantus Insulin] 22 unit SQ DAILY 02/22/19 [History] Metoprolol Tartrate [Lopressor] 50 mg PO DAILY 02/22/19 [History] Hx Tetanus, Diphtheria Vaccination/Date Given: Yes Hx Influenza Vaccination/Date Given: Yes Hx Pneumococcal Vaccination/Date Given: Yes Travel Risk - International Travel Have you traveled outside of the country in past 3 weeks: No (N) If Yes, where;: N - Coronavirus Screening Are you exhibiting any of the following symptoms?: No Close contact with a COVID-19 positive Pt in past 14-21 Days: No - Review of Systems Constitutional: No Symptoms, No Fever, No Chills Eyes: No Symptoms Ears, Nose, & Throat: No Symptoms Respiratory: No Symptoms, No Cough, No Dyspnea Cardiac: No Symptoms, No Chest Pain, No Edema, No Syncope Abdominal/Gastrointestinal: No Symptoms, No Abdominal Pain, No Nausea, No Vomiting, No Diarrhea Genitourinary Symptoms: No Symptoms, No Dysuria Musculoskeletal: No Symptoms, No Back Pain, No Neck Pain Skin: No Symptoms, No Rash Neurological: No Symptoms, No Dizziness, No Focal Weakness, No Sensory Changes Psychological: No Symptoms Endocrine: No Symptoms Hematologic/Lymphatic: No Symptoms Immunological/Allergic: No Symptoms All Other Systems: Reviewed and Negative - Past Medical History Pertinent Past Medical History: Yes Neurological History: Stroke ENT History: No Pertinent History Cardiac History: Hypertension Respiratory History: No Pertinent History Endocrine Medical History: Diabetes Type II Musculoskeletal History: Arthritis GI Medical History: No Pertinent History History: Renal Disease Psycho-Social History: No Pertinent History Male Reproductive Disorders: No Pertinent History 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%" - Past Surgical History Past Surgical History: Yes Neuro Surgical History: No Pertinent History Cardiac: No Pertinent History Respiratory: No Pertinent History Gastrointestinal: No Pertinent History Genitourinary: No Pertinent History Musculoskeletal: No Pertinent History, Orthopedic Surgery Male Surgical History: No Pertinent History Other Surgical History: Callus removed from ball of right foot; 2ND DIGIT RIGHT FOOT REMOVED - Social History Smoking Status: Never smoker Exposure to second hand smoke: No Drug Use: none Patient Lives Alone: Yes - Nursing Vital Signs Nursing Vital Signs: Initial Vital Signs Temperature 101.8 F 05/23/20 10:49 Pulse Rate 117 H 05/23/20 10:49 Respiratory Rate 22 05/23/20 10:49 Blood Pressure 171/99 05/23/20 10:49 O2 Sat by Pulse Oximetry 94 L 05/23/20 10:49 Pain Scale Pain Intensity 0 - Physical Exam General Appearance: no apparent distress, alert, other (Patient sitting up in bed. He is conversant. Rigors observed. Resting tachycardia at 117. Patient febrile at 101.8.) Eye Exam: PERRL/EOMI, eyes nml inspection Ears, Nose, Throat Exam: normal ENT inspection, TMs normal, pharynx normal, moist mucous membranes Neck Exam: normal inspection, non-tender, supple, full range of motion Respiratory Exam: normal breath sounds, lungs clear, No respiratory distress Cardiovascular Exam: regular rate/rhythm, normal heart sounds, normal peripheral pulses Gastrointestinal/Abdomen Exam: soft, normal bowel sounds, No tenderness, No mass Back Exam: normal inspection, normal range of motion, No CVA tenderness, No vertebral tenderness Extremity Exam: normal inspection, normal range of motion, pelvis stable, other (Right upper extremity PICC line observed. No obvious adjacent ST cellulitis. Right foot great toe with obvious draining ulcer. Extremity otherwise neurovascularly intact distally.) Neurologic Exam: alert, oriented x 3, cooperative, normal mood/affect, nml cerebellar function, sensation nml, No motor deficits Skin Exam: normal color, warm, dry, No rash Lymphatic Exam: No adenopathy SpO2 Interpretation: normal SpO2: 94 O2 Delivery: Room Air - Course Nursing assessment & vital signs reviewed: Yes EKG Interpreted by Me: RATE (99), Sinus Rhythm, NORMAL AXIS, NORMAL INTERVALS - Radiology Exams Chest X-ray Interpretation: Teleradiologist Report (No airspace infiltrates to suggest pneumonia or other acute cardiopulmonary disease. A couple calcified granulomas at the lateral right lung base and some minimal subsegmental atelectasis versus scarring at the lateral left lung base. Right-sided PICC line in place with tip in distal SVC pointing ) Foot X-ray Interpretation: Teleradiologist Report (Right foot radiographs reveal acute osteomyelitis of the first metatarsal head and base of the right great toe. There is architectural distortion and some bone destruction observed in association with significant soft tissue swelling in these areas. 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 negative DVT right lower extremity ultrasound.) Ordered Tests: Active Orders 24 hr Category Date Time Status Pearl Cutter STAT Care 05/23/20 10:57 Active EKG-ER Only STAT Care 05/23/20 10:56 Active IV Insertion STAT Care 05/23/20 10:56 Active Pulse Oximetry (ED) STAT Care 05/23/20 10:56 Active Rectal Temperature STAT Care 05/23/20 10:56 Active CHEST 1 VIEW (PORTABLE) Stat Exams 05/23/20 10:57 Completed FOOT (MINIMUM 3 VIEWS) Stat Exams 05/23/20 11:04 Completed VENOUS UNILAT/LIMITED EXTREMIT [US] Stat Exams 05/23/20 13:01 Ordered BLOOD CULTURE Stat Lab 05/23/20 11:14 Received CBC W DIFF Stat Lab 05/23/20 10:56 Completed CMP Stat Lab 05/23/20 10:55 Completed CULTURE,URINE Stat Lab 05/23/20 10:57 Received Lactic Acid Stat Lab 05/23/20 11:05 Completed MAGNESIUM Stat Lab 05/23/20 10:55 Completed TROPONIN Q3H Lab 05/23/20 10:55 Completed TROPONIN Q3H Lab 05/23/20 14:00 Ordered TROPONIN Q3H Lab 05/23/20 17:00 Ordered TROPONIN Q3H Lab 05/23/20 20:00 Ordered TROPONIN Q3H Lab 05/23/20 23:00 Ordered UA W/RFX UR CULTURE Stat Lab 05/23/20 10:57 Completed Transfer Order Routine Transfer 05/23/20 Ordered Medication Summary Generic Name Dose Route Start Last Admin Trade Name Frececi PRN Reason Stop Dose Admin Heparin Sodium (Beef Lung) 500 units 05/23/20 11:02 05/23/20 11:16 Heparin Lock Flush 100 Units/Ml 5ml Syringe PICC 06/22/20 11:01 500 units PRN PRN Administration IV PORT FLUSH Discontinued Medications Generic Name Dose Route Start Last Admin Trade Name Freq PRN Reason Stop Dose Admin Acetaminophen 975 mg 05/23/20 10:56 05/23/20 11:08 Tylenol 325 Mg PO 05/23/20 10:57 975 mg STAT STA Administration Acetaminophen Confirm 05/23/20 11:06 Tylenol 325 Mg Administered 05/23/20 11:07 Dose 975 mg .ROUTE .STK-MED ONE Daptomycin 500 mg 05/23/20 11:22 05/23/20 11:33 Daptomycin 500 Mg Injection IV 05/23/20 11:23 500 mg ONCE STA Administration Sodium Chloride 1,000 mls @ 999 mls/hr 05/23/20 10:56 05/23/20 12:29 Sodium Chloride 0.9% 1000 Ml IV 05/23/20 11:56 Infused .Q1H1M STA Infusion Sodium Chloride Confirm 05/23/20 11:06 Sodium Chloride 0.9% 1000 Ml Administered 05/23/20 11:07 Dose 1,000 mls @ ud .ROUTE .[facility] [place] Ertapenem 1 g/ Sodium Chloride 100 mls @ 200 mls/hr 05/23/20 11:28 05/23/20 11:33 IV 05/23/20 11:57 200 mls/hr STAT STA Administration Ibuprofen 600 mg 05/23/20 10:56 05/23/20 11:08 Motrin 600 Mg PO 05/23/20 10:57 600 mg STAT STA Administration Ibuprofen Confirm 05/23/20 11:06 Motrin 600 Mg Administered 05/23/20 11:07 Dose 600 mg .ROUTE .[facility] [place] Lab/Rad Data: Laboratory Result Diagrams 05/23/20 10:56 05/23/20 10:55 Laboratory Results 05/23/20 05/23/20 05/23/20 Range/Units 11:05 10:57 10:56 WBC 11.2 H (4.0-10.5) K/mm3 RBC 3.78 L (4.1-5.6) M/mm3 Hgb 10.4 L (12.5-18.0) gm/dl Hct 34.2 L (42-50) % MCV 90.5 (78-100) fl MCH 27.5 (26-32) pg MCHC 30.4 L (32-36) g/dl RDW 15.8 H (11.5-14.0) % Plt Count 317 (150-450) K/mm3 MPV 9.4 (7.5-11.0) fl Gran % 89.8 H (36.0-66.0) % Eos # (Auto) 0.12 (0-0.5) Absolute Lymphs (auto) 0.52 L (1.0-4.6) Absolute Monos (auto) 0.50 (0.0-1.3) Lymphocytes % 4.6 L (24.0-44.0) % Monocytes % 4.5 (0.0-12.0) % Eosinophils % 1.1 (0.00-5.0) % Basophils % 0.0 (0.0-0.4) % Absolute Granulocytes 10.07 H (1.4-6.9) Basophils # 0 (0-0.4) Sodium (137-145) mmol/L Potassium (3.5-5.1) mmol/L Chloride (98-107) mmol/L Carbon Dioxide (22-30) mmol/L Anion Gap (5-15) MEQ/L BUN (9-20) mg/dL Creatinine (0.66-1.25) mg/dL Estimated GFR ML/MIN Glucose (74-106) mg/dL Lactic Acid 1.8 (0.4-2.0) Calcium (8.4-10.2) mg/dL Magnesium (1.6-2.3) mg/dL Total Bilirubin (0.2-1.3) mg/dL AST (17-59) U/L ALT (0-50) U/L Alkaline Phosphatase (38-126) U/L Troponin I (0.000-0.034) ng/mL Serum Total Protein (6.3-8.2) g/dL Albumin (3.5-5.0) g/dL Urine Color STRAW (YELLOW) Urine Appearance CLEAR (CLEAR) Urine pH 6.0 (5-6) Ur Specific [place] 1.010 (1.005-1.025) Urine Protein 100 (Negative) Urine Ketones TRACE (NEGATIVE) Urine Blood MODERATE (0-5) Pérez/ul Urine Nitrite NEGATIVE (NEGATIVE) Urine Bilirubin NEGATIVE (NEGATIVE) Urine Urobilinogen NEGATIVE (0-1) mg/dL Ur Leukocyte Esterase NEGATIVE (NEGATIVE) Urine WBC (Auto) 0-2 (0-5) /HPF Urine RBC (Auto) 6-10 (0-2) /HPF U Hyaline Cast (Auto) 0-2 (0-2) /LPF U Epithel Cells (Auto) NONE (FEW) /HPF Urine Bacteria (Auto) NONE (NEGATIVE) /HPF Urine Mucus (Auto) SLIGHT (NEGATIVE) /HPF Urine Culture Reflexed YES (NO) Urine Glucose >=500 (NEGATIVE) mg/dL Influenza Type A Ag (NEGATIVE) Influenza Type B Ag (NEGATIVE) RSV (PCR) (Negative) SARS-CoV-2 (PCR) (NEGATIVE) 05/23/20 05/23/20 05/23/20 Range/Units 10:55 10:55 10:55 WBC (4.0-10.5) K/mm3 RBC (4.1-5.6) M/mm3 Hgb (12.5-18.0) gm/dl Hct (42-50) % MCV (78-100) fl MCH (26-32) pg MCHC (32-36) g/dl RDW (11.5-14.0) % Plt Count (150-450) K/mm3 MPV (7.5-11.0) fl Gran % (36.0-66.0) % Eos # (Auto) (0-0.5) Absolute Lymphs (auto) (1.0-4.6) Absolute Monos (auto) (0.0-1.3) Lymphocytes % (24.0-44.0) % Monocytes % (0.0-12.0) % Eosinophils % (0.00-5.0) % Basophils % (0.0-0.4) % Absolute Granulocytes (1.4-6.9) Basophils # (0-0.4) Sodium 137 (137-145) mmol/L Potassium 4.4 (3.5-5.1) mmol/L Chloride 101 (98-107) mmol/L Carbon Dioxide 25 (22-30) mmol/L Anion Gap 14.7 (5-15) MEQ/L BUN 19 (9-20) mg/dL Creatinine 1.45 H (0.66-1.25) mg/dL Estimated GFR 49.4 ML/MIN Glucose 232 H (74-106) mg/dL Lactic Acid (0.4-2.0) Calcium 9.3 (8.4-10.2) mg/dL Magnesium 2.0 (1.6-2.3) mg/dL Total Bilirubin 0.50 (0.2-1.3) mg/dL AST 20 (17-59) U/L ALT 11 (0-50) U/L Alkaline Phosphatase 77 (38-126) U/L Troponin I < 0.012 (0.000-0.034) ng/mL Serum Total Protein 7.6 (6.3-8.2) g/dL Albumin 3.8 (3.5-5.0) g/dL Urine Color (YELLOW) Urine Appearance (CLEAR) Urine pH (5-6) Ur Specific [place] (1.005-1.025) Urine Protein (Negative) Urine Ketones (NEGATIVE) Urine Blood (0-5) Pérez/ul Urine Nitrite (NEGATIVE) Urine Bilirubin (NEGATIVE) Urine Urobilinogen (0-1) mg/dL Ur Leukocyte Esterase (NEGATIVE) Urine WBC (Auto) (0-5) /HPF Urine RBC (Auto) (0-2) /HPF U Hyaline Cast (Auto) (0-2) /LPF U Epithel Cells (Auto) (FEW) /HPF Urine Bacteria (Auto) (NEGATIVE) /HPF Urine Mucus (Auto) (NEGATIVE) /HPF Urine Culture Reflexed (NO) Urine Glucose (NEGATIVE) mg/dL Influenza Type A Ag (NEGATIVE) Influenza Type B Ag (NEGATIVE) RSV (PCR) (Negative) SARS-CoV-2 (PCR) (NEGATIVE) 05/23/20 Range/Units 10:30 WBC (4.0-10.5) K/mm3 RBC (4.1-5.6) M/mm3 Hgb (12.5-18.0) gm/dl Hct (42-50) % MCV (78-100) fl MCH (26-32) pg MCHC (32-36) g/dl RDW (11.5-14.0) % Plt Count (150-450) K/mm3 MPV (7.5-11.0) fl Gran % (36.0-66.0) % Eos # (Auto) (0-0.5) Absolute Lymphs (auto) (1.0-4.6) Absolute Monos (auto) (0.0-1.3) Lymphocytes % (24.0-44.0) % Monocytes % (0.0-12.0) % Eosinophils % (0.00-5.0) % Basophils % (0.0-0.4) % Absolute Granulocytes (1.4-6.9) Basophils # (0-0.4) Sodium (137-145) mmol/L Potassium (3.5-5.1) mmol/L Chloride (98-107) mmol/L Carbon Dioxide (22-30) mmol/L Anion Gap (5-15) MEQ/L BUN (9-20) mg/dL Creatinine (0.66-1.25) mg/dL Estimated GFR ML/MIN Glucose (74-106) mg/dL Lactic Acid (0.4-2.0) Calcium (8.4-10.2) mg/dL Magnesium (1.6-2.3) mg/dL Total Bilirubin (0.2-1.3) mg/dL AST (17-59) U/L ALT (0-50) U/L Alkaline Phosphatase (38-126) U/L Troponin I (0.000-0.034) ng/mL Serum Total Protein (6.3-8.2) g/dL Albumin (3.5-5.0) g/dL Urine Color (YELLOW) Urine Appearance (CLEAR) Urine pH (5-6) Ur Specific [place] (1.005-1.025) Urine Protein (Negative) Urine Ketones (NEGATIVE) Urine Blood (0-5) Pérez/ul Urine Nitrite (NEGATIVE) Urine Bilirubin (NEGATIVE) Urine Urobilinogen (0-1) mg/dL Ur Leukocyte Esterase (NEGATIVE) Urine WBC (Auto) (0-5) /HPF Urine RBC (Auto) (0-2) /HPF U Hyaline Cast (Auto) (0-2) /LPF U Epithel Cells (Auto) (FEW) /HPF Urine Bacteria (Auto) (NEGATIVE) /HPF Urine Mucus (Auto) (NEGATIVE) /HPF Urine Culture Reflexed (NO) Urine Glucose (NEGATIVE) mg/dL Influenza Type A Ag NEGATIVE (NEGATIVE) Influenza Type B Ag NEGATIVE (NEGATIVE) RSV (PCR) NEGATIVE (Negative) SARS-CoV-2 (PCR) NEGATIVE (NEGATIVE) - Progress Progress: improved Progress Note: Patient reassessed. He feels well. X-ray reveals acute myelitis of his first great toe. Patient's outpatient IV antibiotic regimen administered in our ED. Patient had a bedside evaluation by podiatry. They reviewed patient's x-ray and feels that patient will require an amputation. Plan of care discussed with patient. He agrees to admission to [facility] for further evaluation and treatment. Case discussed with Dr. Cole who accepts admission to observation. Patient voices no other complaints or concerns at this time. 05/23/20 13:43 Discussed with : Dayne Will see patient in: hospital (observation) Counseled pt/family regarding: lab results, diagnosis, rad results - Departure Departure Disposition: Observation Clinical Impression: Osteomyelitis, SIRS (systemic inflammatory response syndrome), Sepsis, Leukocytosis, Tachycardia, Fever, Chronic renal insufficiency, Hyperglycemia Condition: Stable Critical Care Time: No Referrals: [facility] [Primary Care Provider] -
[2020-05-23] MEDS ORDERED: Daptomycin 500 MG Injection IV STA (11:22)
[2020-05-23] MEDS ORDERED: Invanz 1 GM*** 1 G in Sodium Chloride 100ML MINI-BAG PLUS 100 ML IV STA (11:28)
[2020-05-23 11:29] LABS: Absolute Neutrophil Ct (ANC) 10.07 (1.4-6.9); Basophil (Absolute #) 0 (0-0.4); Eosinophil % 1.1 % (0.00-5.0); Eosinophil (Absolute #) 0.12 (0-0.5); Hematocrit 34.2 % (42-50); Hemoglobin 10.4 gm/dl (12.5-18.0); Lymphocyte (Absolute #) 0.52 (1.0-4.6); Lymphocytes % 4.6 % (24.0-44.0); Mean Cell Volume 90.5 fl (78-100); Mean Corpuscular Hemoglobin 27.5 pg (26-32); Mean Corpuscular Hgb Concent. 30.4 g/dl (32-36); Mean Platelet Volume 9.4 fl (7.5-11.0); Monocytes % 4.5 % (0.0-12.0); Neutrophil % 89.8 % (36.0-66.0); Platelet Count 317 K/mm3 (150-450); Red Blood Count 3.78 M/mm3 (4.1-5.6); Red Cell Distribution Width 15.8 % (11.5-14.0); White Blood Count 11.2 K/mm3 (4.0-10.5)
[2020-05-23 11:32] LABS: Appearance CLEAR (CLEAR); Bilirubin NEGATIVE (NEGATIVE); Blood MODERATE Ery/ul (0-5); Glucose >=500 mg/dL (NEGATIVE); Hyaline Casts 0-2 /LPF (0-2); Ketones TRACE (NEGATIVE); Leukocyte Esterase NEGATIVE (NEGATIVE); Mucus SLIGHT /HPF (NEGATIVE); Nitrite NEGATIVE (NEGATIVE); Protein,Urine Dip 100 (Negative); Urobilinogen NEGATIVE mg/dL (0-1); WBC 0-2 /HPF (0-5)
[2020-05-23 11:42] LABS: ALBUMIN 3.8 g/dL (3.5-5.0); ANION GAP 14.7 MEQ/L (5-15); BILIRUBIN,TOTAL 0.5 mg/dL (0.2-1.3); Calcium 9.3 mg/dL (8.4-10.2); Creatinine 1 1.45 mg/dL (0.66-1.25); EST GLOMERULAR FILTRATION RATE 49.4 ML/MIN; Potassium 4.4 mmol/L (3.5-5.1); Total Protein 7.6 g/dL (6.3-8.2)
--- NOTE | 2020-05-23 11:55 | XRAY ---
Exam: 3 view right foot series from 05/23/2020. Comparison: Two-view right foot series from 05/09/2020 and 3 view right foot series from 11/09/2019. 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 History of diabetes. Findings: AP, oblique, and crosstable lateral medial images of the right foot were obtained. Extensive bone demineralization and moderate atherosclerotic vascular calcification are again seen. I again see amputation of the right second toe and distal right second metatarsal head. However, there is new abnormality of the distal right first metatarsal head and base of the right great toe as compared to 05/09/2020. Significant surrounding soft tissue swelling is seen about the first MTP joint and right great toe as well. There appears to be focal architectural distortion and osteolytic bone destruction involving portions of the distal first metatarsal head and base of the proximal phalanx of the right great toe. This is very concerning for development of acute osteomyelitis. No other fracture, dislocation, or bone destruction is seen. Prominent plantar and mild posterior calcaneal spurs are again seen. Impression: 1. There has been a significant adverse change in the appearance of the right foot radiographs from 05/09/2020. There is architectural distortion and some bone destruction involving the distal right first metatarsal head and base of the proximal phalanx of the right great toe associated with significant soft tissue swelling in these areas. These findings are very worrisome for new osteomyelitis at these sites. 2. Bone demineralization, evidence of prior surgical resection of the right second toe and distal second metatarsal head, significant soft tissue vascular calcification, and calcaneal spurs are again seen.
--- NOTE | 2020-05-23 11:59 | XRAY ---
Exam: AP upright portable chest film from 11:06 AM on 05/23/2020. Comparison: Two-view chest from 05/30/2019. Indication: 84-year-old male with fever, consider pneumonia. Findings: The heart size is normal. Calcification of the aortic knob and mild tortuosity of the descending thoracic aorta are seen. The remainder of the davis and mediastinal structures appears unremarkable. There has been average inflation of the lungs. A right-sided PICC line is seen with the tip in the distal SVC pointing inferiorly. This appears satisfactory. No air space infiltrates, vascular congestion, pneumothorax, or pleural fluid is seen. A couple small calcified granulomas are seen at the lateral right lung base. There appears to be some minimal subsegmental atelectasis versus scarring at the lateral left lung base. Again, no pneumonic infiltrates are seen. No acute no acute osseous abnormalities are seen. Degenerative changes are seen within the visualized lower cervical spine and thoracic spine. Impression: 1. No air space infiltrates to suggest pneumonia or other acute cardiopulmonary disease is seen. 2. A couple calcified granulomas at the lateral right lung base and some minimal subsegmental atelectasis versus scarring at the lateral left lung base are incidentally seen. 3. Right-sided PICC line in place with tip in distal SVC pointing inferiorly.
[2020-05-23 12:55] LABS: INFLUENZA A NEGATIVE (NEGATIVE); INFLUENZA B NEGATIVE (NEGATIVE); RESPIRATORY SYNCTIAL VIRUS NEGATIVE (Negative)
[2020-05-23 14:02] LABS: Slide Review 1 YES
--- NOTE | 2020-05-23 14:36 | XRAY ---
Exam: Right lower extremity duplex Doppler venous ultrasound from 05/23/2020. Comparison: Right lower extremity duplex Doppler venous ultrasound from 01/05/2011. Indication: 84-year-old male for rule out DVT, history of peripheral vascular disease. Findings: Images of the major deep venous structures of the right lower extremity including the common femoral vein, superficial femoral vein, popliteal vein, and distal posterior tibial veins were imaged with grayscale imaging and color-flow imaging. No clot was detected. Normal transducer compression was seen at all venous segments. The Doppler tracings appeared unremarkable with normal Doppler signal augmentation. Normal compression of the greater saphenous vein within the upper right thigh is seen. Also, normal color blood flow and Doppler signal augmentation within the greater saphenous vein within the proximal right thigh were seen. Impression: 1. No sonographic or Doppler findings of deep venous thrombosis are seen within the right lower extremity.
[2020-05-23] MEDS ORDERED: MORPHINE SULFATE 2 MG INJ IV PRN (14:46)
--- NOTE | 2020-05-23 15:54 | PCM.CONS ---
Podiatry HPI - Consult Date of Consultation Date: 05/23/20 Reason for Consult: Diabetic Foot Wound Infection, Osteomyelitis, Sepsis Consulting Provider: KALLIE HAYES DPM - [facility] History of Present Illness: Berto is a very pleasant 84-year-old male who presents today for complaints of extreme pain to his right hallux as well as cellulitis and potential for sepsis. Patient was receiving antibiotic infusion however when being tested for temperature he was found to have a high fever of 101.8 pulse rate of 117 respiratory rate of 22 and elevated blood pressure. Upon white blood cell cultures taken within the emergency department demonstrated he had an elevated white blood cell count at 11.2. He indicates that he does feel well at this time however he does indicate that he did have some episodes of dry heaving. He denies any shortness of breath or chest pain. He does endorse calf pain as well.He currently denies any other constitutional symptoms. He denies any other pedal complaints at this time Medications & Allergies Home Medications: Home Medication List Atorvastatin Calcium [Lipitor] 40 mg PO DAILY 02/22/19 [History Confirmed 05/15/20] Citalopram Hydrobromide [Celexa] 10 mg PO DAILY 02/22/19 [History Confirmed 05/15/20] Clopidogrel Bisulfate 75 mg [PLAVIX 75 MG Tablet] 75 mg PO DAILY 02/22/19 [History Confirmed 05/15/20] Ferrous Sulfate [Iron] 325 mg PO DAILY 02/22/19 [History Confirmed 05/15/20] Furosemide 40 mg [Lasix 40 MG] 40 mg PO BID 02/22/19 [History Confirmed 05/15/20] Gabapentin 300 mg PO HS 02/22/19 [History Confirmed 05/15/20] Gabapentin 300 mg PO QAM 02/22/19 [History Confirmed 05/15/20] Insulin Aspart [Novolog] 8 unit SQ TIDWMEALS 02/22/19 [History Confirmed 05/15/20] Insulin Glargine [Lantus Insulin] 22 unit SQ DAILY 02/22/19 [History Confirmed 05/15/20] Metoprolol Tartrate [Lopressor] 50 mg PO DAILY 02/22/19 [History Confirmed 05/15/20] Allergies/Adverse Reactions: Allergies Allergy/AdvReac Type Severity Reaction Status Date / Time sulfamethoxazole Allergy Intermediate Swelling Verified 05/23/20 10:49 [From Bactrim] trimethoprim [From Bactrim] Allergy Intermediate Swelling Verified 05/23/20 10:49 Sulfa (Sulfonamide AdvReac Intermediate Swelling Verified 05/23/20 10:49 Antibiotics) - Past Medical History Past Medical History: Yes Neurological History: Stroke ENT History: No Pertinent History Cardiac History: Hypertension Respiratory History: No Pertinent History Endocrine Medical History: Diabetes Type II Musculoskelatal History: Arthritis GI Medical History: No Pertinent History History: Renal Disease Pyscho-Social History: No Pertinent History Male Reproductive Disorders: No Pertinent History Comment: 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%" - Past Surgical History Past Surgical History: Yes Neuro Surgical History: No Pertinent History Cardiac History: No Pertinent History Respiratory Surgery: No Pertinent History GI Surgical History: No Pertinent History Genitourinary Surgical Hx: No Pertinent History Musculskeletal Surgical Hx: No Pertinent History, Orthopedic Surgery Male Surgical History: No Pertinent History Other Surgical History: Callus removed from ball of right foot; 2ND DIGIT RIGHT FOOT REMOVED - Social History Smoking Status: Never smoker Exposure to second hand smoke: No Alcohol: None Drug Use: none Physical Exam - Narrative Narrative Physical Exam: Podiatry Physical Exam Vascular: Pulses are nonpalpable to the DP and PT. Capillary refill time is less than 3 seconds. Cellulitis extending to the proximal aspect of the right tibia there is also indications of brawny edema to this lower extremity secondary to his venous stasis. Draining ulceration that probes directly to bone. Undermining purulent drainage present. No lymphadenopathy, lymphangitis. Minimal 1+ pitting edema to the bilateral lower extremity. Neurological: Protective sensation is diminished. Vibratory sensation is diminished. Reflexes within normal limits. Dermatological wound measuring 2.0 x 1.3 x 0.4 with a positive probe to bone and undermining the capsule of the first MPJ is exposed bone quality is soft in nature. Musculoskeletal: Deferred secondary to pain to the bilateral lower extremity .Pain to palpation to periwound area Results - Labs Lab/Micro Results: Lab Results-Last 24 Hours 05/23/20 05/23/20 05/23/20 Range/Units 10:30 10:55 10:55 WBC (4.0-10.5) K/mm3 RBC (4.1-5.6) M/mm3 Hgb (12.5-18.0) gm/dl Hct (42-50) % MCV (78-100) fl MCH (26-32) pg MCHC (32-36) g/dl RDW (11.5-14.0) % Plt Count (150-450) K/mm3 MPV (7.5-11.0) fl Gran % (36.0-66.0) % Eos # (Auto) (0-0.5) Absolute Lymphs (auto) (1.0-4.6) Absolute Monos (auto) (0.0-1.3) Lymphocytes % (24.0-44.0) % Monocytes % (0.0-12.0) % Eosinophils % (0.00-5.0) % Basophils % (0.0-0.4) % Absolute Granulocytes (1.4-6.9) Basophils # (0-0.4) Sodium 137 (137-145) mmol/L Potassium 4.4 (3.5-5.1) mmol/L Chloride 101 (98-107) mmol/L Carbon Dioxide 25 (22-30) mmol/L Anion Gap 14.7 (5-15) MEQ/L BUN 19 (9-20) mg/dL Creatinine 1.45 H (0.66-1.25) mg/dL Estimated GFR 49.4 ML/MIN Glucose 232 H (74-106) mg/dL Lactic Acid (0.4-2.0) Calcium 9.3 (8.4-10.2) mg/dL Magnesium 2.0 (1.6-2.3) mg/dL Total Bilirubin 0.50 (0.2-1.3) mg/dL AST 20 (17-59) U/L ALT 11 (0-50) U/L Alkaline Phosphatase 77 (38-126) U/L Troponin I (0.000-0.034) ng/mL Serum Total Protein 7.6 (6.3-8.2) g/dL Albumin 3.8 (3.5-5.0) g/dL Urine Color (YELLOW) Urine Appearance (CLEAR) Urine pH (5-6) Ur Specific [place] (1.005-1.025) Urine Protein (Negative) Urine Ketones (NEGATIVE) Urine Blood (0-5) Pérez/ul Urine Nitrite (NEGATIVE) Urine Bilirubin (NEGATIVE) Urine Urobilinogen (0-1) mg/dL Ur Leukocyte Esterase (NEGATIVE) Urine WBC (Auto) (0-5) /HPF Urine RBC (Auto) (0-2) /HPF U Hyaline Cast (Auto) (0-2) /LPF U Epithel Cells (Auto) (FEW) /HPF Urine Bacteria (Auto) (NEGATIVE) /HPF Urine Mucus (Auto) (NEGATIVE) /HPF Urine Culture Reflexed (NO) Urine Glucose (NEGATIVE) mg/dL Influenza Type A Ag NEGATIVE (NEGATIVE) Influenza Type B Ag NEGATIVE (NEGATIVE) RSV (PCR) NEGATIVE (Negative) SARS-CoV-2 (PCR) NEGATIVE (NEGATIVE) Slides for Path Review 05/23/20 05/23/20 05/23/20 Range/Units 10:55 10:56 10:57 WBC 11.2 H (4.0-10.5) K/mm3 RBC 3.78 L (4.1-5.6) M/mm3 Hgb 10.4 L (12.5-18.0) gm/dl Hct 34.2 L (42-50) % MCV 90.5 (78-100) fl MCH 27.5 (26-32) pg MCHC 30.4 L (32-36) g/dl RDW 15.8 H (11.5-14.0) % Plt Count 317 (150-450) K/mm3 MPV 9.4 (7.5-11.0) fl Gran % 89.8 H (36.0-66.0) % Eos # (Auto) 0.12 (0-0.5) Absolute Lymphs (auto) 0.52 L (1.0-4.6) Absolute Monos (auto) 0.50 (0.0-1.3) Lymphocytes % 4.6 L (24.0-44.0) % Monocytes % 4.5 (0.0-12.0) % Eosinophils % 1.1 (0.00-5.0) % Basophils % 0.0 (0.0-0.4) % Absolute Granulocytes 10.07 H (1.4-6.9) Basophils # 0 (0-0.4) Sodium (137-145) mmol/L Potassium (3.5-5.1) mmol/L Chloride (98-107) mmol/L Carbon Dioxide (22-30) mmol/L Anion Gap (5-15) MEQ/L BUN (9-20) mg/dL Creatinine (0.66-1.25) mg/dL Estimated GFR ML/MIN Glucose (74-106) mg/dL Lactic Acid (0.4-2.0) Calcium (8.4-10.2) mg/dL Magnesium (1.6-2.3) mg/dL Total Bilirubin (0.2-1.3) mg/dL AST (17-59) U/L ALT (0-50) U/L Alkaline Phosphatase (38-126) U/L Troponin I < 0.012 (0.000-0.034) ng/mL Serum Total Protein (6.3-8.2) g/dL Albumin (3.5-5.0) g/dL Urine Color STRAW (YELLOW) Urine Appearance CLEAR (CLEAR) Urine pH 6.0 (5-6) Ur Specific [place] 1.010 (1.005-1.025) Urine Protein 100 (Negative) Urine Ketones TRACE (NEGATIVE) Urine Blood MODERATE (0-5) Pérez/ul Urine Nitrite NEGATIVE (NEGATIVE) Urine Bilirubin NEGATIVE (NEGATIVE) Urine Urobilinogen NEGATIVE (0-1) mg/dL Ur Leukocyte Esterase NEGATIVE (NEGATIVE) Urine WBC (Auto) 0-2 (0-5) /HPF Urine RBC (Auto) 6-10 (0-2) /HPF U Hyaline Cast (Auto) 0-2 (0-2) /LPF U Epithel Cells (Auto) NONE (FEW) /HPF Urine Bacteria (Auto) NONE (NEGATIVE) /HPF Urine Mucus (Auto) SLIGHT (NEGATIVE) /HPF Urine Culture Reflexed YES (NO) Urine Glucose >=500 (NEGATIVE) mg/dL Influenza Type A Ag (NEGATIVE) Influenza Type B Ag (NEGATIVE) RSV (PCR) (Negative) SARS-CoV-2 (PCR) (NEGATIVE) Slides for Path Review YES 05/23/20 05/23/20 Range/Units 11:05 14:13 WBC (4.0-10.5) K/mm3 RBC (4.1-5.6) M/mm3 Hgb (12.5-18.0) gm/dl Hct (42-50) % MCV (78-100) fl MCH (26-32) pg MCHC (32-36) g/dl RDW (11.5-14.0) % Plt Count (150-450) K/mm3 MPV (7.5-11.0) fl Gran % (36.0-66.0) % Eos # (Auto) (0-0.5) Absolute Lymphs (auto) (1.0-4.6) Absolute Monos (auto) (0.0-1.3) Lymphocytes % (24.0-44.0) % Monocytes % (0.0-12.0) % Eosinophils % (0.00-5.0) % Basophils % (0.0-0.4) % Absolute Granulocytes (1.4-6.9) Basophils # (0-0.4) Sodium (137-145) mmol/L Potassium (3.5-5.1) mmol/L Chloride (98-107) mmol/L Carbon Dioxide (22-30) mmol/L Anion Gap (5-15) MEQ/L BUN (9-20) mg/dL Creatinine (0.66-1.25) mg/dL Estimated GFR ML/MIN Glucose (74-106) mg/dL Lactic Acid 1.8 (0.4-2.0) Calcium (8.4-10.2) mg/dL Magnesium (1.6-2.3) mg/dL Total Bilirubin (0.2-1.3) mg/dL AST (17-59) U/L ALT (0-50) U/L Alkaline Phosphatase (38-126) U/L Troponin I 0.016 (0.000-0.034) ng/mL Serum Total Protein (6.3-8.2) g/dL Albumin (3.5-5.0) g/dL Urine Color (YELLOW) Urine Appearance (CLEAR) Urine pH (5-6) Ur Specific [place] (1.005-1.025) Urine Protein (Negative) Urine Ketones (NEGATIVE) Urine Blood (0-5) Pérez/ul Urine Nitrite (NEGATIVE) Urine Bilirubin (NEGATIVE) Urine Urobilinogen (0-1) mg/dL Ur Leukocyte Esterase (NEGATIVE) Urine WBC (Auto) (0-5) /HPF Urine RBC (Auto) (0-2) /HPF U Hyaline Cast (Auto) (0-2) /LPF U Epithel Cells (Auto) (FEW) /HPF Urine Bacteria (Auto) (NEGATIVE) /HPF Urine Mucus (Auto) (NEGATIVE) /HPF Urine Culture Reflexed (NO) Urine Glucose (NEGATIVE) mg/dL Influenza Type A Ag (NEGATIVE) Influenza Type B Ag (NEGATIVE) RSV (PCR) (Negative) SARS-CoV-2 (PCR) (NEGATIVE) Slides for Path Review - Radiology Impressions Radiology Exams & Impressions: Radiology Procedures Category Date Time Status CHEST 1 VIEW (PORTABLE) Stat Exams 05/23/20 10:57 Completed FOOT (MINIMUM 3 VIEWS) Stat Exams 05/23/20 11:04 Completed VENOUS UNILAT/LIMITED EXTREMIT [US] Stat Exams 05/23/20 13:48 Completed Assessment/Plan (1) Osteomyelitis Current Visit: Yes Status: Acute Assessment & Plan: Patient examination and evaluation. Radiographs reviewed demonstrating extensive changes to the first metatarsophalangeal joint indicative of contiguous spread of osteomyelitis from the second ray amputation previously. Patient is currently in a state of sepsis and his outpatient antibiotic therapy has failed at this time I recommend amputation in order to provide the patient with the best possible outcome. Bone quality is not of that which would benefit from IV antibiotics alone. Patient understands and agrees to proceed. Vascular studies to be obtained prior to surgical intervention if possible. SARAH and arterial Dopplers pending Cultures will be obtained intraoperatively. Patient to be n.p.o. at midnight of 05/24/2020 he may have sips for medications after that time Consent to read incision and drainage with amputation of right hallux and partial first ray amputation (open) This procedure is to be staged due to the infected nature of the wound on follow-up we will perform a abductor hallucis muscle flap as well as a delayed primary closure. Patient understands all risks complications and benefits of the surgery included but not limited to need for further surgical intervention delayed wound healing poor wound healing and possible need for further amputation, loss of limb, loss of life. Thank you for the consult Code(s): M86.9 - OSTEOMYELITIS, UNSPECIFIED (2) SIRS (systemic inflammatory response syndrome) Current Visit: Yes Status: Acute Code(s): R65.10 - SIRS OF NON-INFECTIOUS ORIGIN W/O ACUTE ORGAN DYSFUNCTION (3) Sepsis Current Visit: Yes Status: Acute (4) Diabetes type 2, controlled Current Visit: No Status: Chronic Qualifiers: Diabetes mellitus long goods drier insulin use: with long goods drier use Diabetes mellitus complication status: with skin complications Diabetes mellitus complication detail: with other skin complication Qualified Code(s): E11.628 - Type 2 diabetes mellitus with other skin complications; Z79.4 - longterm (current) use of insulin Code(s): E11.9 - TYPE 2 DIABETES MELLITUS WITHOUT COMPLICATIONS
[2020-05-23] MEDS: Sodium Chloride 0.9% 1000 ML 1,000 ML IV SCH (17:19)
--- NOTE | 2020-05-23 19:28 | XRAY ---
Exam: Bilateral lower extremity duplex Doppler arterial ultrasound exam from 05/23/2020. Comparison: Bilateral lower extremity duplex Doppler arterial ultrasound exam from 04/16/2020. Indication: 84-year-old male scheduled for toe amputation on 05/24/2020, peripheral vascular disease. Findings: The interventional technologist left a note that she was unable to occlude the upper and lower bilateral extremity arteries in order to obtain SARAH measurements. Therefore, this was not done. Ontiveros scale images, the color blood flow images, and Doppler tracings were obtained throughout both major lower extremity arteries. Moderate scattered bilateral arteriosclerotic vascular calcification is seen. Within the right lower extremity, peak systolic flow velocities in centimeters per second measure 144.4 within the common femoral artery, 138.2 within the superficial femoral artery, 72.6 within the profunda femoral artery, 128.6 within the popliteal artery, 30.0 within the distal posterior tibial artery, and 40.2 within the dorsalis pedis artery. Doppler waveforms are biphasic within the right common femoral artery and profunda femoral artery. However, the Doppler waveforms were monophasic within the superficial femoral artery, popliteal artery, distal posterior tibial artery, and dorsalis pedis artery. Within the left lower extremity, peak systolic flow velocities in centimeters per second measure 129.3 within the common femoral artery, 137.9 within the superficial femoral artery, 129.3 within the profunda femoral artery, 148.7 within the popliteal artery, 77.0 within the distal posterior tibial artery, and 114.0 within the dorsalis pedis artery. Doppler waveforms were biphasic within the common femoral artery, proximal superficial femoral artery, and popliteal artery. The Doppler waveforms were monophasic within the profunda femoral artery, distal superficial femoral artery, distal posterior tibial artery, and dorsalis pedis artery. Impression: 1. Accurate ABIs could not be completed, as the interventional technologist was unable to occlude the upper and lower extremity arteries with transducer compression to obtain these measurements. Therefore, no ABIs were obtained. 2. There is a significant drop off of peak systolic flow velocity within the distal right leg arteries as compared to the distal left leg with associated monophasic Doppler waveforms suggesting moderate to marked vascular disease. In addition, other areas of bilateral lower extremity Doppler monophasic waveforms, as discussed above, suggest moderate to marked peripheral vascular disease.
[2020-05-23] MEDS: HUMALOG SQ PRN (21:44)
[2020-05-23] MEDS: NEURONTIN 300 MG PO SCH (21:44)
--- NOTE | 2020-05-23 21:50 | PCM.HP ---
History of Present Illness - Chief Complaint Chief Complaint: pain in right foot for few days History of Present Illness: is a 84 year old male.Patient presents to our ED for evaluation of possible sepsis. Patient is known to have osteomyelitis of his right foot. Patient currently receiving outpatient antibiotic infusion. Patient reported for his outpatient antibiotic infusion this morning. Patient was found to be febrile. Patient's nurse practitioner was notified and was instructed to come to our ED for further evaluation. Patient states that he had dry heaving earlier this morning. Otherwise feels fine. No chest pain or shortness of breath. No vomiting. No diarrhea. No rash. Symptoms are mild to moderate in intensity. No specific worsening or improving factors. Patient voices no other complaints or concerns at this time. - Review of Systems Constitutional: No Fever, No Chills Eyes: No Symptoms Ears, Nose, & Throat: No Symptoms Respiratory: No Cough, No Short Of Breath Cardiac: No Chest Pain, No Edema, No Syncope Abdominal/Gastrointestinal: No Abdominal Pain, No Nausea, No Vomiting, No Di arrhea Genitourinary Symptoms: No Dysuria Musculoskeletal: No Back Pain, No Neck Pain Skin: Cellulitis, No Rash Neurological: No Dizziness, No Focal Weakness, No Sensory Changes Psychological: No Symptoms Endocrine: No Symptoms Hematologic/Lymphatic: No Symptoms Immunological/Allergic: No Symptoms Medications & Allergies Home Medications: Home Medication List Atorvastatin Calcium [Lipitor] 40 mg PO DAILY 02/22/19 [History Confirmed 05/23/20] Citalopram Hydrobromide [Celexa] 10 mg PO DAILY 02/22/19 [History Confirmed 05/23/20] Clopidogrel Bisulfate 75 mg [PLAVIX 75 MG Tablet] 75 mg PO DAILY 02/22/19 [History Confirmed 05/23/20] Ferrous Sulfate [Iron] 325 mg PO DAILY 02/22/19 [History Confirmed 05/23/20] Furosemide 40 mg [Lasix 40 MG] 40 mg PO BID 02/22/19 [History Confirmed 05/23/20] Gabapentin 300 mg PO HS 02/22/19 [History Confirmed 05/23/20] Gabapentin 300 mg PO QAM 02/22/19 [History Confirmed 05/23/20] Insulin Aspart [Novolog] 8 unit SQ TIDWMEALS 02/22/19 [History Confirmed 05/23/20] Insulin Glargine [Lantus Insulin] 22 unit SQ DAILY 02/22/19 [History Confirmed 05/23/20] Metoprolol Tartrate [Lopressor] 50 mg PO DAILY 02/22/19 [History Confirmed 05/23/20] Insulin Lispro [Humalog] 100 unit SQ UD PRN 05/23/20 [History Confirmed 05/23/20] Allergies/Adverse Reactions: Allergies Allergy/AdvReac Type Severity Reaction Status Date / Time sulfamethoxazole Allergy Intermediate Swelling Verified 05/23/20 10:49 [From Bactrim] trimethoprim [From Bactrim] Allergy Intermediate Swelling Verified 05/23/20 10:49 Sulfa (Sulfonamide AdvReac Intermediate Swelling Verified 05/23/20 10:49 Antibiotics) - Past Medical History Past Medical History: Yes Neurological History: Stroke ENT History: No Pertinent History Cardiac History: Hypertension Respiratory History: No Pertinent History Endocrine Medical History: Diabetes Type II Musculoskelatal History: Arthritis GI Medical History: No Pertinent History History: Renal Disease Pyscho-Social History: No Pertinent History Male Reproductive Disorders: No Pertinent History Comment: 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%" - Past Surgical History Past Surgical History: Yes Neuro Surgical History: No Pertinent History Cardiac History: No Pertinent History Respiratory Surgery: No Pertinent History GI Surgical History: No Pertinent History Genitourinary Surgical Hx: No Pertinent History Musculskeletal Surgical Hx: No Pertinent History, Orthopedic Surgery Male Surgical History: No Pertinent History Other Surgical History: Callus removed from ball of right foot; 2ND DIGIT RIGHT FOOT REMOVED - Social History Smoking Status: Never smoker Exposure to second hand smoke: No Alcohol: None Drug Use: none - Physical Exam Vital Signs: Vital Signs - 24 hr Temp Pulse Resp BP Pulse Ox 05/23/20 20:00 98.2 F 96 H 20 177/82 95 05/23/20 16:00 98.9 F 82 20 141/70 96 05/23/20 15:44 98.9 F 82 20 141/70 96 05/23/20 14:05 98.9 F 82 20 141/70 96 05/23/20 13:44 94 L 05/23/20 13:22 99.4 F 82 20 150/68 94 L 05/23/20 12:30 99.6 F 94 H 18 171/75 94 L 05/23/20 11:54 101.4 F 101 H 20 193/102 97 05/23/20 11:12 96 05/23/20 10:49 101.8 F 117 H 22 171/99 94 L General Appearance: no apparent distress, alert Neurologic Exam: alert, oriented x 3, cooperative, normal mood/affect, nml cerebellar function, nml station & gait, sensation nml, No motor deficits Eye Exam: PERRL/EOMI, eyes nml inspection Ears, Nose, Throat Exam: normal ENT inspection, TMs normal, pharynx normal, moist mucous membranes Neck Exam: normal inspection, non-tender, supple, full range of motion Respiratory Exam: normal breath sounds, lungs clear, No respiratory distress Cardiovascular Exam: regular rate/rhythm, normal heart sounds, normal peripheral pulses Gastrointestinal/Abdomen Exam: soft, normal bowel sounds, No tenderness, No mass Back Exam: normal inspection, normal range of motion, No CVA tenderness, No vertebral tenderness Extremity Exam: normal inspection, normal range of motion, pelvis stable, inflammation, swelling, tenderness (right foot) Skin Exam: normal color, warm, dry, No rash Lymphatic Exam: No adenopathy Results - Labs Lab/Micro Results: Lab Results-Last 24 Hours 05/23/20 05/23/20 05/23/20 Range/Units 10:30 10:55 10:55 WBC (4.0-10.5) K/mm3 RBC (4.1-5.6) M/mm3 Hgb (12.5-18.0) gm/dl Hct (42-50) % MCV (78-100) fl MCH (26-32) pg MCHC (32-36) g/dl RDW (11.5-14.0) % Plt Count (150-450) K/mm3 MPV (7.5-11.0) fl Gran % (36.0-66.0) % Eos # (Auto) (0-0.5) Absolute Lymphs (auto) (1.0-4.6) Absolute Monos (auto) (0.0-1.3) Lymphocytes % (24.0-44.0) % Monocytes % (0.0-12.0) % Eosinophils % (0.00-5.0) % Basophils % (0.0-0.4) % Absolute Granulocytes (1.4-6.9) Basophils # (0-0.4) Sodium 137 (137-145) mmol/L Potassium 4.4 (3.5-5.1) mmol/L Chloride 101 (98-107) mmol/L Carbon Dioxide 25 (22-30) mmol/L Anion Gap 14.7 (5-15) MEQ/L BUN 19 (9-20) mg/dL Creatinine 1.45 H (0.66-1.25) mg/dL Estimated GFR 49.4 ML/MIN Glucose 232 H (74-106) mg/dL POC Glucometer (74 to 106) mg/dL Lactic Acid (0.4-2.0) Calcium 9.3 (8.4-10.2) mg/dL Magnesium 2.0 (1.6-2.3) mg/dL Total Bilirubin 0.50 (0.2-1.3) mg/dL AST 20 (17-59) U/L ALT 11 (0-50) U/L Alkaline Phosphatase 77 (38-126) U/L Troponin I (0.000-0.034) ng/mL Serum Total Protein 7.6 (6.3-8.2) g/dL Albumin 3.8 (3.5-5.0) g/dL Urine Color (YELLOW) Urine Appearance (CLEAR) Urine pH (5-6) Ur Specific Comfort (1.005-1.025) Urine Protein (Negative) Urine Ketones (NEGATIVE) Urine Blood (0-5) Pérez/ul Urine Nitrite (NEGATIVE) Urine Bilirubin (NEGATIVE) Urine Urobilinogen (0-1) mg/dL Ur Leukocyte Esterase (NEGATIVE) Urine WBC (Auto) (0-5) /HPF Urine RBC (Auto) (0-2) /HPF U Hyaline Cast (Auto) (0-2) /LPF U Epithel Cells (Auto) (FEW) /HPF Urine Bacteria (Auto) (NEGATIVE) /HPF Urine Mucus (Auto) (NEGATIVE) /HPF Urine Culture Reflexed (NO) Urine Glucose (NEGATIVE) mg/dL Influenza Type A Ag NEGATIVE (NEGATIVE) Influenza Type B Ag NEGATIVE (NEGATIVE) RSV (PCR) NEGATIVE (Negative) SARS-CoV-2 (PCR) NEGATIVE (NEGATIVE) Slides for Path Review 05/23/20 05/23/20 05/23/20 Range/Units 10:55 10:56 10:57 WBC 11.2 H (4.0-10.5) K/mm3 RBC 3.78 L (4.1-5.6) M/mm3 Hgb 10.4 L (12.5-18.0) gm/dl Hct 34.2 L (42-50) % MCV 90.5 (78-100) fl MCH 27.5 (26-32) pg MCHC 30.4 L (32-36) g/dl RDW 15.8 H (11.5-14.0) % Plt Count 317 (150-450) K/mm3 MPV 9.4 (7.5-11.0) fl Gran % 89.8 H (36.0-66.0) % Eos # (Auto) 0.12 (0-0.5) Absolute Lymphs (auto) 0.52 L (1.0-4.6) Absolute Monos (auto) 0.50 (0.0-1.3) Lymphocytes % 4.6 L (24.0-44.0) % Monocytes % 4.5 (0.0-12.0) % Eosinophils % 1.1 (0.00-5.0) % Basophils % 0.0 (0.0-0.4) % Absolute Granulocytes 10.07 H (1.4-6.9) Basophils # 0 (0-0.4) Sodium (137-145) mmol/L Potassium (3.5-5.1) mmol/L Chloride (98-107) mmol/L Carbon Dioxide (22-30) mmol/L Anion Gap (5-15) MEQ/L BUN (9-20) mg/dL Creatinine (0.66-1.25) mg/dL Estimated GFR ML/MIN Glucose (74-106) mg/dL POC Glucometer (74 to 106) mg/dL Lactic Acid (0.4-2.0) Calcium (8.4-10.2) mg/dL Magnesium (1.6-2.3) mg/dL Total Bilirubin (0.2-1.3) mg/dL AST (17-59) U/L ALT (0-50) U/L Alkaline Phosphatase (38-126) U/L Troponin I < 0.012 (0.000-0.034) ng/mL Serum Total Protein (6.3-8.2) g/dL Albumin (3.5-5.0) g/dL Urine Color STRAW (YELLOW) Urine Appearance CLEAR (CLEAR) Urine pH 6.0 (5-6) Ur Specific Comfort 1.010 (1.005-1.025) Urine Protein 100 (Negative) Urine Ketones TRACE (NEGATIVE) Urine Blood MODERATE (0-5) Pérez/ul Urine Nitrite NEGATIVE (NEGATIVE) Urine Bilirubin NEGATIVE (NEGATIVE) Urine Urobilinogen NEGATIVE (0-1) mg/dL Ur Leukocyte Esterase NEGATIVE (NEGATIVE) Urine WBC (Auto) 0-2 (0-5) /HPF Urine RBC (Auto) 6-10 (0-2) /HPF U Hyaline Cast (Auto) 0-2 (0-2) /LPF U Epithel Cells (Auto) NONE (FEW) /HPF Urine Bacteria (Auto) NONE (NEGATIVE) /HPF Urine Mucus (Auto) SLIGHT (NEGATIVE) /HPF Urine Culture Reflexed YES (NO) Urine Glucose >=500 (NEGATIVE) mg/dL Influenza Type A Ag (NEGATIVE) Influenza Type B Ag (NEGATIVE) RSV (PCR) (Negative) SARS-CoV-2 (PCR) (NEGATIVE) Slides for Path Review YES 05/23/20 05/23/20 05/23/20 Range/Units 11:05 14:13 16:58 WBC (4.0-10.5) K/mm3 RBC (4.1-5.6) M/mm3 Hgb (12.5-18.0) gm/dl Hct (42-50) % MCV (78-100) fl MCH (26-32) pg MCHC (32-36) g/dl RDW (11.5-14.0) % Plt Count (150-450) K/mm3 MPV (7.5-11.0) fl Gran % (36.0-66.0) % Eos # (Auto) (0-0.5) Absolute Lymphs (auto) (1.0-4.6) Absolute Monos (auto) (0.0-1.3) Lymphocytes % (24.0-44.0) % Monocytes % (0.0-12.0) % Eosinophils % (0.00-5.0) % Basophils % (0.0-0.4) % Absolute Granulocytes (1.4-6.9) Basophils # (0-0.4) Sodium (137-145) mmol/L Potassium (3.5-5.1) mmol/L Chloride (98-107) mmol/L Carbon Dioxide (22-30) mmol/L Anion Gap (5-15) MEQ/L BUN (9-20) mg/dL Creatinine (0.66-1.25) mg/dL Estimated GFR ML/MIN Glucose (74-106) mg/dL POC Glucometer (74 to 106) mg/dL Lactic Acid 1.8 (0.4-2.0) Calcium (8.4-10.2) mg/dL Magnesium (1.6-2.3) mg/dL Total Bilirubin (0.2-1.3) mg/dL AST (17-59) U/L ALT (0-50) U/L Alkaline Phosphatase (38-126) U/L Troponin I 0.016 0.018 (0.000-0.034) ng/mL Serum Total Protein (6.3-8.2) g/dL Albumin (3.5-5.0) g/dL Urine Color (YELLOW) Urine Appearance (CLEAR) Urine pH (5-6) Ur Specific Comfort (1.005-1.025) Urine Protein (Negative) Urine Ketones (NEGATIVE) Urine Blood (0-5) Pérez/ul Urine Nitrite (NEGATIVE) Urine Bilirubin (NEGATIVE) Urine Urobilinogen (0-1) mg/dL Ur Leukocyte Esterase (NEGATIVE) Urine WBC (Auto) (0-5) /HPF Urine RBC (Auto) (0-2) /HPF U Hyaline Cast (Auto) (0-2) /LPF U Epithel Cells (Auto) (FEW) /HPF Urine Bacteria (Auto) (NEGATIVE) /HPF Urine Mucus (Auto) (NEGATIVE) /HPF Urine Culture Reflexed (NO) Urine Glucose (NEGATIVE) mg/dL Influenza Type A Ag (NEGATIVE) Influenza Type B Ag (NEGATIVE) RSV (PCR) (Negative) SARS-CoV-2 (PCR) (NEGATIVE) Slides for Path Review 05/23/20 05/23/20 05/23/20 Range/Units 17:47 19:40 20:45 WBC (4.0-10.5) K/mm3 RBC (4.1-5.6) M/mm3 Hgb (12.5-18.0) gm/dl Hct (42-50) % MCV (78-100) fl MCH (26-32) pg MCHC (32-36) g/dl RDW (11.5-14.0) % Plt Count (150-450) K/mm3 MPV (7.5-11.0) fl Gran % (36.0-66.0) % Eos # (Auto) (0-0.5) Absolute Lymphs (auto) (1.0-4.6) Absolute Monos (auto) (0.0-1.3) Lymphocytes % (24.0-44.0) % Monocytes % (0.0-12.0) % Eosinophils % (0.00-5.0) % Basophils % (0.0-0.4) % Absolute Granulocytes (1.4-6.9) Basophils # (0-0.4) Sodium (137-145) mmol/L Potassium (3.5-5.1) mmol/L Chloride (98-107) mmol/L Carbon Dioxide (22-30) mmol/L Anion Gap (5-15) MEQ/L BUN (9-20) mg/dL Creatinine (0.66-1.25) mg/dL Estimated GFR ML/MIN Glucose (74-106) mg/dL POC Glucometer 134 H 210 H (74 to 106) mg/dL Lactic Acid (0.4-2.0) Calcium (8.4-10.2) mg/dL Magnesium (1.6-2.3) mg/dL Total Bilirubin (0.2-1.3) mg/dL AST (17-59) U/L ALT (0-50) U/L Alkaline Phosphatase (38-126) U/L Troponin I 0.019 (0.000-0.034) ng/mL Serum Total Protein (6.3-8.2) g/dL Albumin (3.5-5.0) g/dL Urine Color (YELLOW) Urine Appearance (CLEAR) Urine pH (5-6) Ur Specific Comfort (1.005-1.025) Urine Protein (Negative) Urine Ketones (NEGATIVE) Urine Blood (0-5) Pérez/ul Urine Nitrite (NEGATIVE) Urine Bilirubin (NEGATIVE) Urine Urobilinogen (0-1) mg/dL Ur Leukocyte Esterase (NEGATIVE) Urine WBC (Auto) (0-5) /HPF Urine RBC (Auto) (0-2) /HPF U Hyaline Cast (Auto) (0-2) /LPF U Epithel Cells (Auto) (FEW) /HPF Urine Bacteria (Auto) (NEGATIVE) /HPF Urine Mucus (Auto) (NEGATIVE) /HPF Urine Culture Reflexed (NO) Urine Glucose (NEGATIVE) mg/dL Influenza Type A Ag (NEGATIVE) Influenza Type B Ag (NEGATIVE) RSV (PCR) (Negative) SARS-CoV-2 (PCR) (NEGATIVE) Slides for Path Review Accuchecks Date 05/23/20 Time 17:00 - Radiology Impressions Radiology Exams & Impressions: Radiology Procedures Category Date Time Status ARTERIAL BILAT LOWER EXTREMITY [US] Routine Exams 05/23/20 17:48 Completed CHEST 1 VIEW (PORTABLE) Stat Exams 05/23/20 10:57 Completed FOOT (MINIMUM 3 VIEWS) Stat Exams 05/23/20 11:04 Completed VENOUS UNILAT/LIMITED EXTREMIT [US] Stat Exams 05/23/20 13:48 Completed Assessment/Plan (1) Osteomyelitis Current Visit: Yes Status: Acute Code(s): M86.9 - OSTEOMYELITIS, UNSPECIFIED (2) SIRS (systemic inflammatory response syndrome) Current Visit: Yes Status: Acute Code(s): R65.10 - SIRS OF NON-INFECTIOUS ORIGIN W/O ACUTE ORGAN DYSFUNCTION
[2020-05-24] MEDS: Sodium Chloride 0.9% 1000 ML 1,000 ML IV SCH ×3 (02:49→22:55)
[2020-05-24 05:06] LABS: Absolute Neutrophil Ct (ANC) 10.06 (1.4-6.9); BASOPHIL % 0.2 % (0.0-0.4); Basophil (Absolute #) 0.02 (0-0.4); Eosinophil % 1.3 % (0.00-5.0); Eosinophil (Absolute #) 0.15 (0-0.5); Hematocrit 28.5 % (42-50); Hemoglobin 8.3 gm/dl (12.5-18.0); Lymphocyte (Absolute #) 0.55 (1.0-4.6); Lymphocytes % 4.9 % (24.0-44.0); Mean Cell Volume 92.5 fl (78-100); Mean Corpuscular Hemoglobin 26.9 pg (26-32); Mean Corpuscular Hgb Concent. 29.1 g/dl (32-36); Mean Platelet Volume 9.7 fl (7.5-11.0); Monocyte (Absolute #) 0.53 (0.0-1.3); Monocytes % 4.7 % (0.0-12.0); Neutrophil % 88.9 % (36.0-66.0); Platelet Count 249 K/mm3 (150-450); Red Blood Count 3.08 M/mm3 (4.1-5.6); Red Cell Distribution Width 16.2 % (11.5-14.0); White Blood Count 11.3 K/mm3 (4.0-10.5)
[2020-05-24 05:59] LABS: ALBUMIN 2.5 g/dL (3.5-5.0); ALKALINE PHOSPHATASE 58 U/L (38-126); ANION GAP 11.1 MEQ/L (5-15); BLOOD UREA NITROGEN 17 mg/dL (9-20); CHLORIDE 108 mmol/L (98-107); Carbon Dioxide 22 mmol/L (22-30); Creatinine 1 1.13 mg/dL (0.66-1.25); EST GLOMERULAR FILTRATION RATE > 60.0 ML/MIN; Glucose 226 mg/dL (74-106); Potassium 4.1 mmol/L (3.5-5.1); SGOT/AST 17 U/L (17-59); SGPT/ALT 8 U/L (0-50); SODIUM 137 mmol/L (137-145); Total Protein 5.4 g/dL (6.3-8.2)
[2020-05-24] MEDS ORDERED: CEFAZOLIN 2 GM-D5W BAG** 2 GM/50 ML ML IV SCH (08:00)
[2020-05-24] MEDS ORDERED: Lactated Ringers 1,000 ML IV SCH (08:00)
[2020-05-24] MEDS ORDERED: INSULIN ASPART 8 UNIT SQ SCH (08:00)
[2020-05-24] MEDS: HUMALOG SQ PRN ×2 (08:19→18:00)
[2020-05-24] MEDS ORDERED: XYLOCAINE 1% HCL 20 ML MDV ONE (08:37)
[2020-05-24] MEDS ORDERED: BUPIVACAINE 0.5% VIAL IJ ONE ×2 (08:37→08:41)
[2020-05-24] MEDS: HUMALOG SQ SCH ×3 (08:40→18:00)
[2020-05-24] MEDS ORDERED: Ketamine HCl 50 MG/ML ONE (08:46)
[2020-05-24] MEDS ORDERED: Versed 2 MG/2 ML Injection ONE (08:46)
[2020-05-24] MEDS ORDERED: DIPRIVAN 200 MG/20 ML IV ONE (08:46)
[2020-05-24] MEDS ORDERED: SUBLIMAZE 100 MCG/2 ML ONE (09:06)
[2020-05-24] MEDS ORDERED: PHENYLEPHRINE HCL ONE (09:20)
[2020-05-24] MEDS ORDERED: NON-FORMULARY ITEM (Citalopram Hydrobromide [Celexa] 10 MG) PO SCH (10:00)
[2020-05-24] MEDS ORDERED: METOPROLOL TARTRATE 50 MG PO SCH (10:00)
[2020-05-24] MEDS ORDERED: NON-FORMULARY ITEM (Atorvastatin Calcium [Lipitor] 40 MG) PO SCH (10:00)
--- NOTE | 2020-05-24 10:12 | PCM.NOTE ---
Podiatry Post-Op Plan Podiatry Post-Op Plan: Podiatry Post-Op Plan Post-operative plan is as follows:[] ANTIBIOTICS: Ancef 1 g IV q8h PAIN CONTROL: Helena 5/325mg q4h moderate pain. Morphine 2 mg q4h severe pain. Discharge with Helena 5/325mg q6h VTE PROPHYLAXIS: Lovenox 40 mg SubQ daily for anticoag. SCD and compression hose to non op leg. Discharge with Xarelto 10mg daily for 30 days. DRESSINGS: Dressing to remain clean and dry. Reinforce with Kerlix/MEET as necessary. Tomorrow change of dressing to consist of : remove dressing and pull packing from medial operative site, cleanse wound with sterile saline. Betadine to incision site. Adaptic 4x4 sterile gauze 3 layers of kerlix and secure with lightly applied 4inch and 6 inch MEET. ACTIVITY: NWB to Right foot. Full weight bearing to Left for transfers to bedside commode. THERAPIES: PT/OT consult for gait training, assistive device training, and assessment of functional status with NWB to the right foot. Incentive Spirometry. PLACEMENT: CM for possible swing bed placement ( preferred) vs shelter. Daughter voiced interest in swing bed if possible
--- NOTE | 2020-05-24 10:24 | OP ---
Podiatry Procedure Note Procedure Date:: 05/24/20 Procedure Time: 08:45 Podiatry Procedure Note: Dictated
[2020-05-24] MEDS: PLAVIX 75 MG Tablet PO SCH (12:23)
[2020-05-24] MEDS: Lasix 40 MG PO SCH ×2 (12:23→17:59)
[2020-05-24] MEDS: ceLEXa 20 MG PO SCH (12:24)
[2020-05-24] MEDS: Lopressor 50 MG PO SCH (12:24)
[2020-05-24] MEDS: ZOCOR 20MG PO SCH (12:25)
[2020-05-24] MEDS: NEURONTIN 300 MG PO SCH ×2 (12:26→22:55)
[2020-05-24] MEDS: FEOSOL 325 MG PO SCH (12:26)
[2020-05-24] MEDS: Lantus Insulin SQ SCH (12:26)
--- NOTE | 2020-05-24 12:51 | OP ---
SURGERY DATE/TIME: 05/24/2020 0846 INDICATION FOR SURGERY: Berto Gomez is a very pleasant 84 year-old male who was seen in the past through my service at the wound care center for the same wound that presents to the plantar aspect of the first MPJ of the right foot. He was being treated long standing for over 12 weeks at that time for the wound which at this time has yet to heal and is now causing a significant amount of osteomyelitis at the first metatarsophalangeal joint. Radiographs taken yesterday demonstrate some severe osteolytic changes to the first metatarsophalangeal joint demonstrating significant disruption to the head of the first metatarsal as well as the base of the first proximal phalanx. At this time the patient has met sepsis criteria and is infected as a result of this wound systemically. At this time eradicating the source of the infection is of paramount so as not to continue to hurt the patient systemically. Discussion with the patient regarding outcomes if we were to just proceed with a first ray amputation from functional standpoint. He and his daughter both agree that the most functional result is the best option for him at this time which consists of transmetatarsal amputation. The patient understands all risks, benefits and complications of surgical procedure at this time including but not limited to potential need for surgical intervention in the future, failure of surgical intervention, and need for long-term IV antibiotic. The risk of amputation is not eliminated with performing this procedure today nor is the risk of per anesthesia or permanent disability as a result of the anesthesia. The patient understands this and wishes to proceed at this time as well as his daughter who is the [employer]. PREOPERATIVE DIAGNOSIS: Acute osteomyelitis right foot, peripheral vascular disease, diabetic foot infection chronic. POSTOPERATIVE DIAGNOSIS: Acute osteomyelitis right foot, peripheral vascular disease, diabetic foot infection chronic. PROCEDURE: Transmetatarsal amputation open right foot with irrigation and debridement. SURGEON: eFrdinand Goss DPM. IT DIRECTOR: None. ANESTHESIA: MAC plus local. See injectables. HEMOSTASIS: Pressure dressing. ESTIMATED BLOOD LOSS: 150 cc. MATERIALS: 2-0 Nylon and 0.5 inch Iodoform packing. INJECTABLES: 40 cc of 1:1 mixture of 1% lidocaine plain in an ankle block-type fashion. DESCRIPTION OF PROCEDURE AND FINDINGS: After adequate assessment by the Med/Surg floor and the anesthesia team, the patient was brought into the OR and placed on the OR table in supine position. Following this adequate monitored anesthesia care was applied and a preoperative injection consisting of 40 cc of a 1:1 mixture of 1% lidocaine plain and 0.5% bupivacaine plain was injected into the right ankle in an ankle ring block-type fashion. Following this the leg was prepped and draped in the typical sterile fashion with Betadine and Betadine paint and the surgical extremity was lowered onto the field. At this time a skin marker was utilized to draw out the incision planning site which was intended to save as much healthy skin as possible. At this time a 10 blade was utilized to make the incision down to bone in a fish mouth-type fashion encompassing all five metatarsals. At this time the toes were then disarticulated and handed off the field for pathological assessment at this time. The head of the first metatarsal was assessed and the bone quality was deemed to be terrible in relationship to the amount of osteomyelitis and destruction. The 10 blade was able to cut through the first metatarsal bone without any resistance indicating severe infection and poor bone quality. At this time a Reyna was utilized to push the soft tissue off of the dorsal aspect of the bone dorsally and plantarally without violating any of the important vascular structures to this area. At this time a sagittal saw was then utilized to remove the distal aspect of the metatarsals 1, 2, 3, 4 and 5 at this time. The metatarsals were then handed off the field and sent for pathological assessment. Three samples were taken of soft tissue and bone for pathology and bone for culture. Following this the wound was then lavaged with a pulse lavage and 3 liters of sterile saline. Following this the tendons were then removed from the surgical site as they are avascular and potential could harbor infection. Following this, 2-0 Nylon was utilized to coapt the skin edges to the lateral aspect of the wound under minimal tension and a small opening was made approximately 3 cm at the medial aspect which was packed with Iodoform packing. Following this, the leg was then cleansed with sterile saline and dried with a lap. The wound was then cleansed with Betadine towards the incisional sites. Adaptic was placed over the wound and a dressing consisting of 4x4, gauze, three Kerlix, one - 4 inch Lino and one - 6 inch Lino was applied to the right lower extremity with minimal compression so as to prevent any occlusion of blood flow. At this time the patient was reversed from anesthesia and returned to the postoperative anesthesia care unit with vital signs stable and vascular status intact. The patient handled the anesthesia and the surgery without complication. Postoperative orders as indicated in the chart.
[2020-05-24] MEDS ORDERED: NORCO 5/325 MG PO PRN (17:50)
[2020-05-24] MEDS: Invanz 1 GM*** 1 G in Sodium Chloride 100ML MINI-BAG PLUS 100 ML IV SCH (18:00)
[2020-05-24] MEDS ORDERED: Daptomycin 500 MG Injection IV SCH (18:00)
[2020-05-24] MEDS ORDERED: DAPTOmycin 500 MG in Sodium Chloride Flush 30 ML*** 10 ML IV SCH (18:00)
[2020-05-24] MEDS ORDERED: Narcan 0.4 MG/ML IV ONE (20:45)
[2020-05-24] MEDS ORDERED: Narcan 0.4 MG/ML ONE (20:46)
[2020-05-24 21:00] LABS: Absolute Neutrophil Ct (ANC) 11.94 (1.4-6.9); BASOPHIL % 0.1 % (0.0-0.4); Basophil (Absolute #) 0.01 (0-0.4); Eosinophil % 2.4 % (0.00-5.0); Eosinophil (Absolute #) 0.34 (0-0.5); Hematocrit 24.4 % (42-50); Hemoglobin 7.2 gm/dl (12.5-18.0); Lymphocyte (Absolute #) 0.81 (1.0-4.6); Lymphocytes % 5.7 % (24.0-44.0); Mean Cell Volume 91.4 fl (78-100); Mean Corpuscular Hgb Concent. 29.5 g/dl (32-36); Mean Platelet Volume 9.4 fl (7.5-11.0); Monocyte (Absolute #) 1.01 (0.0-1.3); Monocytes % 7.2 % (0.0-12.0); Neutrophil % 84.6 % (36.0-66.0); Platelet Count 251 K/mm3 (150-450); Red Blood Count 2.67 M/mm3 (4.1-5.6); Red Cell Distribution Width 16.1 % (11.5-14.0); White Blood Count 14.1 K/mm3 (4.0-10.5)
[2020-05-24 21:17] LABS: A-aADO2 496; ABG POTASSIUM 3.8 (3.5-5.1); ARTERIAL BLD GAS O2 SATURATION 99.7 % (95-100); ARTERIAL BLOOD GAS BASE EXCESS -0.4 (-2.0-2.0); ARTERIAL BLOOD GAS FIO2 100 %; ARTERIAL BLOOD GAS PCO2 24 mmHg (35-45); ARTERIAL BLOOD GAS PO2 187 mmHg (75-100); ARTERIAL BLOOD GAS pH 7.54 (7.35-7.45); CARBOXYHEMOGLOBIN 1.3 % THgb (0.0-6.9); HCO3- 20.5 (22-28); HGB O2 SAT 97.3 g/dF (94-100); Methhemoglobin 1.1 % (1.4-1.5)
[2020-05-24 21:18] LABS: ABG HEMOGLOBIN 7.9; ABG SITE lr
[2020-05-24 21:22] LABS: ALBUMIN 2.9 g/dL (3.5-5.0); ANION GAP 9.9 MEQ/L (5-15); BILIRUBIN,TOTAL 0.2 mg/dL (0.2-1.3); Calcium 8.7 mg/dL (8.4-10.2); Creatinine 1 1.32 mg/dL (0.66-1.25); EST GLOMERULAR FILTRATION RATE 55.1 ML/MIN; Potassium 3.9 mmol/L (3.5-5.1); Total Protein 5.9 g/dL (6.3-8.2)
[2020-05-24 21:27] LABS: TROPONIN 0.097 ng/mL (0.000-0.034)
--- NOTE | 2020-05-24 21:54 | XRAY ---
Indication: Unresponsive. Status post foot surgery. Comparison: 1 day earlier. Portable chest demonstrates new mild bibasilar infiltrates versus atelectasis and new small bibasilar effusions. Remaining lungs clear again with incidental calcified granulomas. Heart is not enlarged with stable right PICC line.
--- NOTE | 2020-05-24 22:00 | XRAY ---
Indication: Unresponsive. Status post foot surgery. Multiple contiguous axial images obtained through the head without contrast. Comparison: November 27, 2019. Stable age-appropriate global atrophy, mild degenerative micro-ischemia bilaterally, and small focus old left cerebellar infarct. No acute intracranial hemorrhage, abnormal extra-axial fluid collection, or mass effect. Fourth ventricle is midline without hydrocephalus. Bony calvarium intact. Visualized paranasal sinuses and mastoid air cells are clear. 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
--- NOTE | 2020-05-25 08:29 | PCM.NOTE ---
Date and Time: 05/25/20825 Subjective Assessment: last 24 hours events noted. Last night events noted. - Review of Systems Constitutional: No Fever, No Chills Eyes: No Symptoms Ears, Nose, & Throat: No Symptoms Respiratory: No Cough, No Short Of Breath Cardiac: No Chest Pain, No Edema, No Syncope Abdominal/Gastrointestinal: No Abdominal Pain, No Nausea, No Vomiting, No Diarrhea Genitourinary Symptoms: No Dysuria Musculoskeletal: No Back Pain, No Neck Pain Skin: No Rash Neurological: No Dizziness, No Focal Weakness, No Sensory Changes Psychological: No Symptoms Endocrine: No Symptoms Hematologic/Lymphatic: No Symptoms Immunological/Allergic: No Symptoms Objective Exam General Appearance: no apparent distress, alert Neurologic Exam: alert, oriented x 3, cooperative, normal mood/affect, sensation nml, No motor deficits Skin Exam: normal color, warm, dry Eye Exam: PERRL, EOMI, eyes nml inspection Ears, Nose, Throat Exam: normal ENT inspection, pharynx normal, moist mucous membranes Neck Exam: normal inspection, non-tender, supple, full range of motion Respiratory Exam: normal breath sounds, lungs clear, No respiratory distress Cardiovascular Exam: regular rate/rhythm, normal heart sounds Gastrointestinal/Abdomen Exam: soft, No tenderness, No mass Extremity Exam: normal inspection, normal range of motion Back Exam: normal inspection, normal range of motion, No CVA tenderness, No vertebral tenderness Male Genitalia Exam: deferred Rectal Exam: deferred OBJECTIVE DATA Vital Signs: Vital Signs - 24 hr Temp Pulse Resp BP Pulse Ox 05/25/20 07:12 98.4 F 76 16 174/75 93 L 05/25/20 04:09 97.7 F 69 15 130/63 98 05/24/20 23:45 98.6 F 81 18 128/59 91 L 05/24/20 19:35 100.7 F 90 20 152/57 93 L 05/24/20 19:03 93 L 05/24/20 16:27 99.5 F 85 21 169/73 90 L 05/24/20 14:10 98.6 F 74 21 128/58 92 L 05/24/20 13:10 98.2 F 92 H 19 141/60 94 L 05/24/20 12:10 97.1 F 82 20 134/62 96 05/24/20 11:47 84 16 96 05/24/20 11:45 96 02/26/21 11:40 97.8 F 84 16 136/63 97 05/24/20 11:10 97.6 F 83 16 126/61 95 05/24/20 10:55 98.3 F 85 16 120/56 94 L 05/24/20 10:40 97.9 F 89 18 131/59 93 L Pain Assessment - Last Documented Pain Intensity 0 Pain Scale Used FLACC Intake and Output: Intake & Output 05/22/20 05/23/20 05/24/20 05/25/20 11:59 11:59 11:59 11:59 Intake Total 928 2517 Output Total 350 350 Balance 578 2167 Weight 87.09 kg 87.09 kg Lab Results: Lab Results-Last 24 Hours 05/24/20 05/24/20 05/24/20 Range/Units 11:09 15:50 20:29 WBC (4.0-10.5) K/mm3 RBC (4.1-5.6) M/mm3 Hgb (12.5-18.0) gm/dl Hct (42-50) % MCV (78-100) fl MCH (26-32) pg MCHC (32-36) g/dl RDW (11.5-14.0) % Plt Count (150-450) K/mm3 MPV (7.5-11.0) fl Gran % (36.0-66.0) % Eos # (Auto) (0-0.5) Absolute Lymphs (auto) (1.0-4.6) Absolute Monos (auto) (0.0-1.3) Lymphocytes % (24.0-44.0) % Monocytes % (0.0-12.0) % Eosinophils % (0.00-5.0) % Basophils % (0.0-0.4) % Absolute Granulocytes (1.4-6.9) Basophils # (0-0.4) Puncture Site pCO2 (35-45) mmHg pO2 (75-100) mmHg Base Excess (-2.0-2.0) O2 Saturation (94-100) g/dF ABG pH (7.35-7.45) ABG HCO3 (22-28) ABG O2 Sat (Measured) (95-100) % Edgardo Test A-a Gradient a/A Ratio Hemoglobin Carboxyhemoglobin (0.0-6.9) % THgb Methemoglobin (1.4-1.5) % Temperature C POC O2 Flow Rate % Sodium (137-145) mmol/L Potassium (3.5-5.1) mmol/L Chloride (98-107) mmol/L Carbon Dioxide (22-30) mmol/L Anion Gap (5-15) MEQ/L BUN (9-20) mg/dL Creatinine (0.66-1.25) mg/dL Estimated GFR ML/MIN Glucose (74-106) mg/dL POC Glucometer 180 H 242 H 91 (74 to 106) mg/dL Calcium (8.4-10.2) mg/dL Total Bilirubin (0.2-1.3) mg/dL AST (17-59) U/L ALT (0-50) U/L Alkaline Phosphatase (38-126) U/L Troponin I (0.000-0.034) ng/mL Serum Total Protein (6.3-8.2) g/dL Albumin (3.5-5.0) g/dL 05/24/20 05/24/20 05/24/20 Range/Units 20:35 20:35 20:45 WBC 14.1 H (4.0-10.5) K/mm3 RBC 2.67 L (4.1-5.6) M/mm3 Hgb 7.2 L (12.5-18.0) gm/dl Hct 24.4 L (42-50) % MCV 91.4 (78-100) fl MCH 27.0 (26-32) pg MCHC 29.5 L (32-36) g/dl RDW 16.1 H (11.5-14.0) % Plt Count 251 (150-450) K/mm3 MPV 9.4 (7.5-11.0) fl Gran % 84.6 H (36.0-66.0) % Eos # (Auto) 0.34 (0-0.5) Absolute Lymphs (auto) 0.81 L (1.0-4.6) Absolute Monos (auto) 1.01 (0.0-1.3) Lymphocytes % 5.7 L (24.0-44.0) % Monocytes % 7.2 (0.0-12.0) % Eosinophils % 2.4 (0.00-5.0) % Basophils % 0.1 (0.0-0.4) % Absolute Granulocytes 11.94 H (1.4-6.9) Basophils # 0.01 (0-0.4) Puncture Site lr pCO2 24 L (35-45) mmHg pO2 187 H* (75-100) mmHg Base Excess -0.4 (-2.0-2.0) O2 Saturation 97.3 (94-100) g/dF ABG pH 7.54 H (7.35-7.45) ABG HCO3 20.5 L (22-28) ABG O2 Sat (Measured) 99.7 (95-100) % Edgardo Test na A-a Gradient 496 a/A Ratio 0.27 Hemoglobin 7.9 Carboxyhemoglobin 1.3 (0.0-6.9) % THgb Methemoglobin 1.1 L (1.4-1.5) % Temperature 37.0 C POC O2 Flow Rate 100 % Sodium 134 L (137-145) mmol/L Potassium 3.9 3.8 (3.5-5.1) mmol/L Chloride 105 (98-107) mmol/L Carbon Dioxide 22 (22-30) mmol/L Anion Gap 9.9 (5-15) MEQ/L BUN 20 (9-20) mg/dL Creatinine 1.32 H (0.66-1.25) mg/dL Estimated GFR 55.1 ML/MIN Glucose 86 (74-106) mg/dL POC Glucometer (74 to 106) mg/dL Calcium 8.7 (8.4-10.2) mg/dL Total Bilirubin 0.20 (0.2-1.3) mg/dL AST 18 (17-59) U/L ALT 8 (0-50) U/L Alkaline Phosphatase 51 (38-126) U/L Troponin I 0.097 H* (0.000-0.034) ng/mL Serum Total Protein 5.9 L (6.3-8.2) g/dL Albumin 2.9 L (3.5-5.0) g/dL 05/25/20 05/25/20 Range/Units 06:59 07:08 WBC (4.0-10.5) K/mm3 RBC (4.1-5.6) M/mm3 Hgb (12.5-18.0) gm/dl Hct (42-50) % MCV (78-100) fl MCH (26-32) pg MCHC (32-36) g/dl RDW (11.5-14.0) % Plt Count (150-450) K/mm3 MPV (7.5-11.0) fl Gran % (36.0-66.0) % Eos # (Auto) (0-0.5) Absolute Lymphs (auto) (1.0-4.6) Absolute Monos (auto) (0.0-1.3) Lymphocytes % (24.0-44.0) % Monocytes % (0.0-12.0) % Eosinophils % (0.00-5.0) % Basophils % (0.0-0.4) % Absolute Granulocytes (1.4-6.9) Basophils # (0-0.4) Puncture Site pCO2 (35-45) mmHg pO2 (75-100) mmHg Base Excess (-2.0-2.0) O2 Saturation (94-100) g/dF ABG pH (7.35-7.45) ABG HCO3 (22-28) ABG O2 Sat (Measured) (95-100) % Edgardo Test A-a Gradient a/A Ratio Hemoglobin Carboxyhemoglobin (0.0-6.9) % THgb Methemoglobin (1.4-1.5) % Temperature C POC O2 Flow Rate % Sodium (137-145) mmol/L Potassium (3.5-5.1) mmol/L Chloride (98-107) mmol/L Carbon Dioxide (22-30) mmol/L Anion Gap (5-15) MEQ/L BUN (9-20) mg/dL Creatinine (0.66-1.25) mg/dL Estimated GFR ML/MIN Glucose (74-106) mg/dL POC Glucometer 98 (74 to 106) mg/dL Calcium (8.4-10.2) mg/dL Total Bilirubin (0.2-1.3) mg/dL AST (17-59) U/L ALT (0-50) U/L Alkaline Phosphatase (38-126) U/L Troponin I 0.066 H* (0.000-0.034) ng/mL Serum Total Protein (6.3-8.2) g/dL Albumin (3.5-5.0) g/dL Radiology Exams: Radiology Procedures Category Date Time Status ARTERIAL BILAT LOWER EXTREMITY [US] Routine Exams 05/23/20 17:48 Completed CHEST 1 VIEW (PORTABLE) Stat Exams 05/23/20 10:57 Completed CHEST 1 VIEW (PORTABLE) Stat Exams 05/24/20 20:55 Completed FOOT (MINIMUM 3 VIEWS) Stat Exams 05/23/20 11:04 Completed HEAD WITHOUT CONTRAST [CT] Stat Exams 05/24/20 20:52 Completed VENOUS UNILAT/LIMITED EXTREMIT [US] Stat Exams 05/23/20 13:48 Completed Assessment/Plan (1) Unresponsive episode Current Visit: Yes Status: Acute Assessment & Plan: most likely due to Narcotics. all labs, CT head were negative except slightly elevated troponin. Patient had no chest pain (2) Osteomyelitis Current Visit: Yes Status: Acute Qualifiers: Osteomyelitis type: subacute Osteomyelitis location: foot Laterality: right Qualified Code(s): M86.271 - Subacute osteomyelitis, right ankle and foot Code(s): M86.9 - OSTEOMYELITIS, UNSPECIFIED (3) SIRS (systemic inflammatory response syndrome) Current Visit: Yes Status: Resolved Code(s): R65.10 - SIRS OF NON-INFECTIOUS ORIGIN W/O ACUTE ORGAN DYSFUNCTION
[2020-05-25] MEDS: TYLENOL 325 MG PO PRN ×3 (09:44→21:14)
[2020-05-25] MEDS: PLAVIX 75 MG Tablet PO SCH (09:48)
[2020-05-25] MEDS: Lasix 40 MG PO SCH ×2 (09:48→17:13)
[2020-05-25] MEDS: ZOCOR 20MG PO SCH (09:48)
[2020-05-25] MEDS: FEOSOL 325 MG PO SCH (09:48)
[2020-05-25] MEDS: ceLEXa 20 MG PO SCH (09:48)
[2020-05-25] MEDS: NEURONTIN 300 MG PO SCH ×2 (09:49→21:14)
[2020-05-25] MEDS: Lopressor 50 MG PO SCH (09:49)
[2020-05-25] MEDS: ENOXAPARIN SODIUM SQ SCH (09:52)
[2020-05-25] MEDS: Lantus Insulin SQ SCH (09:52)
[2020-05-25] MEDS: HUMALOG SQ SCH ×3 (09:52→17:43)
[2020-05-25 12:21] LABS: Absolute Neutrophil Ct (ANC) 7.79 (1.4-6.9); BASOPHIL % 0.1 % (0.0-0.4); Basophil (Absolute #) 0.01 (0-0.4); Eosinophil % 6.8 % (0.00-5.0); Eosinophil (Absolute #) 0.67 (0-0.5); Hematocrit 23.9 % (42-50); Lymphocyte (Absolute #) 0.77 (1.0-4.6); Lymphocytes % 7.8 % (24.0-44.0); Mean Cell Volume 92.6 fl (78-100); Mean Corpuscular Hemoglobin 27.1 pg (26-32); Mean Corpuscular Hgb Concent. 29.3 g/dl (32-36); Mean Platelet Volume 9.8 fl (7.5-11.0); Monocyte (Absolute #) 0.68 (0.0-1.3); Monocytes % 6.9 % (0.0-12.0); Neutrophil % 78.4 % (36.0-66.0); Platelet Count 237 K/mm3 (150-450); Red Blood Count 2.58 M/mm3 (4.1-5.6); Red Cell Distribution Width 16.2 % (11.5-14.0); White Blood Count 9.9 K/mm3 (4.0-10.5)
[2020-05-25 12:26] LABS: ALBUMIN 2.8 g/dL (3.5-5.0); ANION GAP 10.6 MEQ/L (5-15); BILIRUBIN,TOTAL 0.2 mg/dL (0.2-1.3); Calcium 8.6 mg/dL (8.4-10.2); Creatinine 1 1.27 mg/dL (0.66-1.25); EST GLOMERULAR FILTRATION RATE 57.6 ML/MIN; Potassium 3.8 mmol/L (3.5-5.1)
[2020-05-25] MEDS: Sodium Chloride 0.9% 1000 ML 1,000 ML IV SCH (14:53)
[2020-05-25] MEDS: Invanz 1 GM*** 1 G in Sodium Chloride 100ML MINI-BAG PLUS 100 ML IV SCH (17:15)
[2020-05-25] MEDS ORDERED: DAPTOmycin 500 MG in Sodium Chloride Flush 30 ML*** 10 ML IV SCH (18:00)
[2020-05-26] MEDS: Sodium Chloride 0.9% 1000 ML 1,000 ML IV SCH ×3 (01:28→20:07)
[2020-05-26 05:54] LABS: Absolute Neutrophil Ct (ANC) 6.28 (1.4-6.9); BASOPHIL % 0.1 % (0.0-0.4); Basophil (Absolute #) 0.01 (0-0.4); Eosinophil % 8.4 % (0.00-5.0); Eosinophil (Absolute #) 0.69 (0-0.5); Hematocrit 23.3 % (42-50); Lymphocyte (Absolute #) 0.59 (1.0-4.6); Lymphocytes % 7.2 % (24.0-44.0); Mean Corpuscular Hgb Concent. 29.6 g/dl (32-36); Mean Platelet Volume 9.5 fl (7.5-11.0); Monocyte (Absolute #) 0.61 (0.0-1.3); Monocytes % 7.5 % (0.0-12.0); Neutrophil % 76.8 % (36.0-66.0); Platelet Count 253 K/mm3 (150-450); Red Blood Count 2.56 M/mm3 (4.1-5.6); Red Cell Distribution Width 15.9 % (11.5-14.0); White Blood Count 8.2 K/mm3 (4.0-10.5)
[2020-05-26 06:03] LABS: ALBUMIN 2.7 g/dL (3.5-5.0); ALKALINE PHOSPHATASE 65 U/L (38-126); BLOOD UREA NITROGEN 19 mg/dL (9-20); CHLORIDE 104 mmol/L (98-107); Calcium 8.2 mg/dL (8.4-10.2); Carbon Dioxide 25 mmol/L (22-30); Creatinine 1 1.22 mg/dL (0.66-1.25); EST GLOMERULAR FILTRATION RATE > 60.0 ML/MIN; Glucose 202 mg/dL (74-106); Potassium 3.5 mmol/L (3.5-5.1); SGOT/AST 37 U/L (17-59); SGPT/ALT 16 U/L (0-50); SODIUM 134 mmol/L (137-145); Total Protein 5.7 g/dL (6.3-8.2)
[2020-05-26 06:07] LABS: Hemoglobin 6.9 gm/dl (12.5-18.0)
--- NOTE | 2020-05-26 07:43 | PCM.NOTE ---
Podiatry Narrative Note Podiatry Narrative Note: Subjective: Mr. Gomez is a very pleasant 84-year-old male seen at bedside today status post transmetatarsal amputation of the right foot postoperative day #2. At this time he admits to a 4 out of 5 pain to the right lower extremity clear up to the knee. However he is in good spirits and admits that he does feel better. All vital signs on assessment appeared to have improved at this time. Patient is in good spirits. He denies any nausea vomiting fever chills shortness of breath or cough at this time. He denies pain to the calf or shortness of breath. There was one solitary event where a code was called secondary to his unresponsiveness even to sternal rubs however this may have been attributed to the narcotics since they were discontinued there have been no repeat incidence. Plan for delayed primary closure and repeat incision and drainage tomorrow. Right lower extremity centered exam: Dressing clean dry and intact on arrival Dressings removed with minimal strikethrough on the primary dressing Vascular: Pulses are nonpalpable to the DP and PT. Skin edges are blanchable w ithout any residual indications of cellulitis to the right lower extremity. Brawny edema to the bilateral lower extremities still present secondary to his venous stasis. Transmetatarsal amputation site coapted without any dehiscence or broken sutures at this time packing pulled demonstrating a clean wound without any indications of residual infection however some necrotic and devitalized tissue at the edges of the surgical wound no remaining purulent drainage. No lymphadenopathy no lymphangitis. Minimal 1+ pitting edema to the bilateral lower extremity. Neurological: Protective sensation is diminished. Vibratory sensation is diminished. Reflexes within normal limits. Dermatological wound measuring 2.0 x 1.3 x 0.4 with a positive probe to bone and undermining the capsule of the first MPJ is exposed bone quality is soft in nature. Musculoskeletal: Tenderness to palpation of the lateral aspect of the wound that radiates to the patient's knee. Transmetatarsal amputation site right foot. Assessment/plan: Osteomyelitis SIRS Sepsis Diabetic foot ulcer Diabetesmellitus type 2 Patient examination and evaluation Reviewed ancillary services notes as well as labs patient has been improving as far as white blood cell count from 14.1 on the 26-8.2 today. His vital signs have also significantly improved from 101.8 temperature 117 pulse rate and 22 respiratory rate on the 25th-98.1 temperature pulse rate 89 and respiratory rate of 20 today. All other lab values appear to be improving significantly. Concern for progressively dropping hemoglobin at this time however monitoring at this time. New radiograph to be obtained following procedure tomorrow. Vascular studies demonstrating significantly diminished and monophasic waveforms to superficial femoral, popliteal, distal posterior tibial and dorsalis pedis arteries to the right lower extremity there also monophasic waveforms to the left lower extremity for this I highly recommend a referral for vascular surgery and possible intervention if they deem necessary. 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 Patient currently on daptomycin 500 mg every 24 hours and ertapenem 1 g every 24 hours. N.p.o. at midnight Surgical consent is signed and in the chart Following this procedure patient may be discharged per social work assessment and placement recommendations versus family recommendation
[2020-05-26 07:51] LABS: Slide Review 1 YES
[2020-05-26] MEDS: HUMALOG SQ SCH ×3 (08:58→16:43)
[2020-05-26] MEDS: Lasix 40 MG PO SCH ×2 (09:52→16:42)
[2020-05-26] MEDS: ZOCOR 20MG PO SCH (09:52)
[2020-05-26] MEDS: Lopressor 50 MG PO SCH (09:52)
[2020-05-26] MEDS: FEOSOL 325 MG PO SCH (09:52)
[2020-05-26] MEDS: NEURONTIN 300 MG PO SCH ×2 (09:52→21:50)
[2020-05-26] MEDS: ceLEXa 20 MG PO SCH (09:53)
[2020-05-26] MEDS: PLAVIX 75 MG Tablet PO SCH (09:53)
[2020-05-26] MEDS: ENOXAPARIN SODIUM SQ SCH (09:55)
[2020-05-26] MEDS: Lantus Insulin SQ SCH (09:55)
[2020-05-26] MEDS: TYLENOL 325 MG PO PRN ×2 (10:02→23:45)
--- NOTE | 2020-05-26 10:21 | PCM.NOTE ---
Date and Time: 05/26/20 1020 Subjective Assessment: doing better - Review of Systems Constitutional: No Fever, No Chills Eyes: No Symptoms Ears, Nose, & Throat: No Symptoms Respiratory: No Cough, No Short Of Breath Cardiac: No Chest Pain, No Edema, No Syncope Abdominal/Gastrointestinal: No Abdominal Pain, No Nausea, No Vomiting, No Diarrhea Genitourinary Symptoms: No Dysuria Musculoskeletal: No Back Pain, No Neck Pain Skin: No Rash Neurological: No Dizziness, No Focal Weakness, No Sensory Changes Psychological: No Symptoms Endocrine: No Symptoms Hematologic/Lymphatic: No Symptoms Immunological/Allergic: No Symptoms Objective Exam General Appearance: no apparent distress, alert Neurologic Exam: alert, oriented x 3, cooperative, normal mood/affect, nml cerebellar function, sensation nml, No motor deficits Skin Exam: normal color, warm, dry Wound Assessment: Skin/Wound Assessment Wound/Incision Assessment Start: 05/25/20 20:46 Text: Status: Active Freq: Q4H Protocol: Document 05/26/20 08:00 [id number] Wound/Incision Assessment Right Foot Wound Assessment Shift Assessment Wound Type Amputation Wound Stage Non Pressure Wound Dressing Status Changed Drainage Amount None Comment Surgery dressing changed per Dr Streeter Wound Photo Photo Taken No Eye Exam: PERRL, EOMI, eyes nml inspection Ears, Nose, Throat Exam: normal ENT inspection, pharynx normal, moist mucous membranes Neck Exam: normal inspection, non-tender, supple, full range of motion Respiratory Exam: normal breath sounds, lungs clear, No respiratory distress Cardiovascular Exam: regular rate/rhythm, normal heart sounds Gastrointestinal/Abdomen Exam: soft, No tenderness, No mass Extremity Exam: normal inspection, normal range of motion Back Exam: normal inspection, normal range of motion, No CVA tenderness, No vertebral tenderness Male Genitalia Exam: deferred Rectal Exam: deferred OBJECTIVE DATA Vital Signs: Vital Signs - 24 hr Temp Pulse Resp BP Pulse Ox 05/26/20 09:52 96 H 176/77 05/26/20 08:00 100.0 F 92 H 18 98/54 90 L 05/26/20 06:37 93 L 05/26/20 04:50 95 05/26/20 04:15 98.1 F 89 20 176/77 91 L 05/26/20 04:00 20 05/25/20 23:41 98.4 F 89 20 187/68 94 L 05/25/20 19:49 97.9 F 83 18 150/66 90 L 05/25/20 19:05 90 L 05/25/20 16:00 98.5 F 65 16 135/65 92 L 05/25/20 11:53 97.7 F 77 16 169/71 93 L 05/25/20 10:58 92 L Pain Assessment - Last Documented Pain Intensity 4 Pain Scale Used 0-10 Pain Scale Intake and Output: Intake & Output 05/23/20 05/24/20 05/25/20 05/26/20 11:59 11:59 11:59 11:59 Intake Total 927 5497 3952 Output Total 246 456 1003 Balance 578 2006 1852 Weight 87.09 kg 87.09 kg Lab Results: Lab Results-Last 24 Hours 05/25/20 05/25/20 05/25/20 Range/Units 07:08 07:08 12:05 WBC 9.9 (4.0-10.5) K/mm3 RBC 2.58 L (4.1-5.6) M/mm3 Hgb 7.0 L (12.5-18.0) gm/dl Hct 23.9 L (42-50) % MCV 92.6 (78-100) fl MCH 27.1 (26-32) pg MCHC 29.3 L (32-36) g/dl RDW 16.2 H (11.5-14.0) % Plt Count 237 (150-450) K/mm3 MPV 9.8 (7.5-11.0) fl Gran % 78.4 H (36.0-66.0) % Eos # (Auto) 0.67 H (0-0.5) Absolute Lymphs (auto) 0.77 L (1.0-4.6) Absolute Monos (auto) 0.68 (0.0-1.3) Lymphocytes % 7.8 L (24.0-44.0) % Monocytes % 6.9 (0.0-12.0) % Eosinophils % 6.8 H (0.00-5.0) % Basophils % 0.1 (0.0-0.4) % Absolute Granulocytes 7.79 H (1.4-6.9) Basophils # 0.01 (0-0.4) Sodium 136 L (137-145) mmol/L Potassium 3.8 (3.5-5.1) mmol/L Chloride 107 (98-107) mmol/L Carbon Dioxide 22 (22-30) mmol/L Anion Gap 10.6 (5-15) MEQ/L BUN 21 H (9-20) mg/dL Creatinine 1.27 H (0.66-1.25) mg/dL Estimated GFR 57.6 ML/MIN Glucose 83 (74-106) mg/dL POC Glucometer 134 H (74 to 106) mg/dL Calcium 8.6 (8.4-10.2) mg/dL Total Bilirubin 0.20 (0.2-1.3) mg/dL AST 39 (17-59) U/L ALT 9 (0-50) U/L Alkaline Phosphatase 53 (38-126) U/L Serum Total Protein 6.0 L (6.3-8.2) g/dL Albumin 2.8 L (3.5-5.0) g/dL Slides for Path Review 05/25/20 05/25/20 05/26/20 Range/Units 16:06 20:56 05:30 WBC 8.2 (4.0-10.5) K/mm3 RBC 2.56 L (4.1-5.6) M/mm3 Hgb 6.9 L* (12.5-18.0) gm/dl Hct 23.3 L (42-50) % MCV 91.0 (78-100) fl MCH 27.0 (26-32) pg MCHC 29.6 L (32-36) g/dl RDW 15.9 H (11.5-14.0) % Plt Count 253 (150-450) K/mm3 MPV 9.5 (7.5-11.0) fl Gran % 76.8 H (36.0-66.0) % Eos # (Auto) 0.69 H (0-0.5) Absolute Lymphs (auto) 0.59 L (1.0-4.6) Absolute Monos (auto) 0.61 (0.0-1.3) Lymphocytes % 7.2 L (24.0-44.0) % Monocytes % 7.5 (0.0-12.0) % Eosinophils % 8.4 H (0.00-5.0) % Basophils % 0.1 (0.0-0.4) % Absolute Granulocytes 6.28 (1.4-6.9) Basophils # 0.01 (0-0.4) Sodium (137-145) mmol/L Potassium (3.5-5.1) mmol/L Chloride (98-107) mmol/L Carbon Dioxide (22-30) mmol/L Anion Gap (5-15) MEQ/L BUN (9-20) mg/dL Creatinine (0.66-1.25) mg/dL Estimated GFR ML/MIN Glucose (74-106) mg/dL POC Glucometer 128 H 105 (74 to 106) mg/dL Calcium (8.4-10.2) mg/dL Total Bilirubin (0.2-1.3) mg/dL AST (17-59) U/L ALT (0-50) U/L Alkaline Phosphatase (38-126) U/L Serum Total Protein (6.3-8.2) g/dL Albumin (3.5-5.0) g/dL Slides for Path Review YES 05/26/20 05/26/20 Range/Units 05:30 07:39 WBC (4.0-10.5) K/mm3 RBC (4.1-5.6) M/mm3 Hgb (12.5-18.0) gm/dl Hct (42-50) % MCV (78-100) fl MCH (26-32) pg MCHC (32-36) g/dl RDW (11.5-14.0) % Plt Count (150-450) K/mm3 MPV (7.5-11.0) fl Gran % (36.0-66.0) % Eos # (Auto) (0-0.5) Absolute Lymphs (auto) (1.0-4.6) Absolute Monos (auto) (0.0-1.3) Lymphocytes % (24.0-44.0) % Monocytes % (0.0-12.0) % Eosinophils % (0.00-5.0) % Basophils % (0.0-0.4) % Absolute Granulocytes (1.4-6.9) Basophils # (0-0.4) Sodium 134 L (137-145) mmol/L Potassium 3.5 (3.5-5.1) mmol/L Chloride 104 (98-107) mmol/L Carbon Dioxide 25 (22-30) mmol/L Anion Gap 9.0 (5-15) MEQ/L BUN 19 (9-20) mg/dL Creatinine 1.22 (0.66-1.25) mg/dL Estimated GFR > 60.0 ML/MIN Glucose 202 H (74-106) mg/dL POC Glucometer 166 H (74 to 106) mg/dL Calcium 8.2 L (8.4-10.2) mg/dL Total Bilirubin 0.10 L (0.2-1.3) mg/dL AST 37 (17-59) U/L ALT 16 (0-50) U/L Alkaline Phosphatase 65 (38-126) U/L Serum Total Protein 5.7 L (6.3-8.2) g/dL Albumin 2.7 L (3.5-5.0) g/dL Slides for Path Review Radiology Exams: Radiology Procedures Category Date Time Status CHEST 1 VIEW (PORTABLE) Stat Exams 05/24/20 20:55 Completed HEAD WITHOUT CONTRAST [CT] Stat Exams 05/24/20 20:52 Completed Assessment/Plan (1) Unresponsive episode Current Visit: Yes Status: Resolved (2) Osteomyelitis Current Visit: Yes Status: Acute Qualifiers: Osteomyelitis type: subacute Osteomyelitis location: foot Laterality: right Qualified Code(s): M86.271 - Subacute osteomyelitis, right ankle and foot Code(s): M86.9 - OSTEOMYELITIS, UNSPECIFIED (3) SIRS (systemic inflammatory response syndrome) Current Visit: Yes Status: Resolved Code(s): R65.10 - SIRS OF NON-INFECTIOUS ORIGIN W/O ACUTE ORGAN DYSFUNCTION
[2020-05-26] MEDS ORDERED: GlucaGen 1 MG IM PRN (16:15)
[2020-05-26] MEDS ORDERED: Glutose 15 GM ORAL GEL PO PRN (16:15)
[2020-05-26] MEDS ORDERED: D50W 50 ml Abboject IV PRN (16:15)
[2020-05-26] MEDS: Invanz 1 GM*** 1 G in Sodium Chloride 100ML MINI-BAG PLUS 100 ML IV SCH (16:43)
[2020-05-26 20:01] LABS: 027 TOX PROD PRESUMPTIVE POSITIVE (NEGATIVE)
[2020-05-26 20:07] LABS: TOXIGENIC C. DIFF ORG POSITIVE (NEGATIVE)
[2020-05-26] MEDS ORDERED: VANCOMYCIN HCL CAPSULE PO SCH (22:00)
[2020-05-26] MEDS: VANCOMYCIN 25MG/ML ORAL SOLUTION COMPOUND KIT PO SCH (23:00)
[2020-05-27] MEDS: VANCOMYCIN 25MG/ML ORAL SOLUTION COMPOUND KIT PO SCH (04:49)
[2020-05-27 05:30] LABS: Absolute Neutrophil Ct (ANC) 5.24 (1.4-6.9); BASOPHIL % 0.1 % (0.0-0.4); Basophil (Absolute #) 0.01 (0-0.4); Eosinophil % 7.8 % (0.00-5.0); Eosinophil (Absolute #) 0.56 (0-0.5); Hematocrit 20.3 % (42-50); Lymphocytes % 8.3 % (24.0-44.0); Mean Cell Volume 90.6 fl (78-100); Mean Corpuscular Hemoglobin 26.8 pg (26-32); Mean Corpuscular Hgb Concent. 29.6 g/dl (32-36); Mean Platelet Volume 9.7 fl (7.5-11.0); Monocyte (Absolute #) 0.81 (0.0-1.3); Monocytes % 11.2 % (0.0-12.0); Neutrophil % 72.6 % (36.0-66.0); Platelet Count 235 K/mm3 (150-450); Red Blood Count 2.24 M/mm3 (4.1-5.6); Red Cell Distribution Width 15.6 % (11.5-14.0); White Blood Count 7.2 K/mm3 (4.0-10.5)
[2020-05-27 05:38] LABS: ALBUMIN 2.5 g/dL (3.5-5.0); ALKALINE PHOSPHATASE 55 U/L (38-126); BLOOD UREA NITROGEN 14 mg/dL (9-20); CHLORIDE 103 mmol/L (98-107); Calcium 7.9 mg/dL (8.4-10.2); Carbon Dioxide 27 mmol/L (22-30); Creatinine 1 1.17 mg/dL (0.66-1.25); EST GLOMERULAR FILTRATION RATE > 60.0 ML/MIN; Glucose 82 mg/dL (74-106); Potassium 3.1 mmol/L (3.5-5.1); SGOT/AST 25 U/L (17-59); SGPT/ALT 11 U/L (0-50); SODIUM 133 mmol/L (137-145); Total Protein 5.3 g/dL (6.3-8.2)
[2020-05-27] MEDS: Sodium Chloride 0.9% 1000 ML 1,000 ML IV SCH ×2 (07:50→22:05)
[2020-05-27] MEDS: VANCOMYCIN HCL CAPSULE PO SCH ×4 (07:52→23:11)
[2020-05-27 08:19] LABS: ABO TYPING A; Antibody Screen NEGATIVE (NEGATIVE); RH TYPING POSITIVE
[2020-05-27 08:21] LABS: CROSS MATCH (PRBC) COMPATIBLE (COMPATIBLE)
[2020-05-27] MEDS: ceLEXa 20 MG PO SCH (11:05)
[2020-05-27] MEDS: Lasix 40 MG PO SCH ×2 (11:05→16:33)
[2020-05-27] MEDS: FEOSOL 325 MG PO SCH (11:06)
[2020-05-27] MEDS: Lopressor 50 MG PO SCH (11:06)
[2020-05-27] MEDS: NEURONTIN 300 MG PO SCH ×2 (11:06→23:11)
[2020-05-27] MEDS: ZOCOR 20MG PO SCH (11:06)
[2020-05-27] MEDS: TYLENOL 325 MG PO PRN ×2 (11:12→16:33)
[2020-05-27] MEDS: DAPTOmycin 500 MG in Sodium Chloride Flush 30 ML*** 10 ML IV SCH (11:20)
[2020-05-27] MEDS: PLAVIX 75 MG Tablet PO SCH (14:22)
[2020-05-27] MEDS: Lantus Insulin SQ SCH (14:22)
[2020-05-27] MEDS: Invanz 1 GM*** 1 G in Sodium Chloride 100ML MINI-BAG PLUS 100 ML IV SCH (17:27)
--- NOTE | 2020-05-27 17:51 | PCM.NOTE ---
Date and Time: 05/27/201747 Subjective Assessment: last 24 hours events noted. - Review of Systems Constitutional: No Fever, No Chills Eyes: No Symptoms Ears, Nose, & Throat: No Symptoms Respiratory: No Cough, No Short Of Breath Cardiac: No Chest Pain, No Edema, No Syncope Abdominal/Gastrointestinal: No Abdominal Pain, No Nausea, No Vomiting, No Diarrhea Genitourinary Symptoms: No Dysuria Musculoskeletal: No Back Pain, No Neck Pain Skin: No Rash Neurological: No Dizziness, No Focal Weakness, No Sensory Changes Psychological: No Symptoms Endocrine: No Symptoms Hematologic/Lymphatic: No Symptoms Immunological/Allergic: No Symptoms Objective Exam General Appearance: no apparent distress, alert Neurologic Exam: alert, oriented x 3, cooperative, normal mood/affect, nml cerebellar function, sensation nml, No motor deficits Skin Exam: normal color, warm, dry Wound Assessment: Skin/Wound Assessment Wound/Incision Assessment Start: 05/25/20 20:46 Text: Status: Active Freq: Q4H Protocol: Document 05/27/20 16:00 FRANCISCONE (Rec: 05/27/20 16:39 RDNE [id number]) Wound/Incision Assessment Right Foot Wound Assessment Shift Assessment Wound Type Amputation Wound Stage Non Pressure Wound Dressing Status Dry & Intact Drainage Amount None Comment Dressing CDI. Wound Photo Photo Taken No Eye Exam: PERRL, EOMI, eyes nml inspection Ears, Nose, Throat Exam: normal ENT inspection, pharynx normal, moist mucous membranes Neck Exam: normal inspection, non-tender, supple, full range of motion Respiratory Exam: normal breath sounds, lungs clear, No respiratory distress Cardiovascular Exam: regular rate/rhythm, normal heart sounds Gastrointestinal/Abdomen Exam: soft, No tenderness, No mass Extremity Exam: normal inspection, normal range of motion Back Exam: normal inspection, normal range of motion, No CVA tenderness, No vertebral tenderness Male Genitalia Exam: deferred Rectal Exam: deferred OBJECTIVE DATA Vital Signs: Vital Signs - 24 hr Temp Pulse Resp BP Pulse Ox 05/27/20 16:00 100.0 F 67 18 157/67 93 L 05/27/20 12:00 81 18 184/79 94 L 05/27/20 08:00 98.4 F 86 18 188/81 95 05/27/20 07:05 92 L 05/27/20 05:00 99.9 F 93 H 20 151/66 91 L 05/27/20 04:00 20 05/27/20 03:53 99.9 F 93 H 20 151/66 91 L 05/27/20 00:14 100.2 F 94 H 19 182/76 92 L 05/27/20 00:00 19 05/26/20 20:00 98.0 F 89 20 163/70 95 05/26/20 19:49 93 L Oxygen-Last 24 hours Oxygen Flowrate (L/min)-RT 8 Pain Assessment - Last Documented Pain Intensity 4 Pain Scale Used 0-10 Pain Scale Intake and Output: Intake & Output 05/25/20 05/26/20 05/27/20 05/28/20 11:59 11:59 11:59 11:59 Intake Total 2757 3952 4445 Output Total 750 2350 1150 Balance 2006 1601 4655 Weight 85.3 kg 85.3 kg Lab Results: Lab Results-Last 24 Hours 05/26/20 05/26/20 05/26/20 Range/Units 18:34 19:00 20:44 WBC (4.0-10.5) K/mm3 RBC (4.1-5.6) M/mm3 Hgb (12.5-18.0) gm/dl Hct (42-50) % MCV (78-100) fl MCH (26-32) pg MCHC (32-36) g/dl RDW (11.5-14.0) % Plt Count (150-450) K/mm3 MPV (7.5-11.0) fl Gran % (36.0-66.0) % Eos # (Auto) (0-0.5) Absolute Lymphs (auto) (1.0-4.6) Absolute Monos (auto) (0.0-1.3) Lymphocytes % (24.0-44.0) % Monocytes % (0.0-12.0) % Eosinophils % (0.00-5.0) % Basophils % (0.0-0.4) % Absolute Granulocytes (1.4-6.9) Basophils # (0-0.4) Sodium (137-145) mmol/L Potassium (3.5-5.1) mmol/L Chloride (98-107) mmol/L Carbon Dioxide (22-30) mmol/L Anion Gap (5-15) MEQ/L BUN (9-20) mg/dL Creatinine (0.66-1.25) mg/dL Estimated GFR ML/MIN Glucose (74-106) mg/dL POC Glucometer 155 H (74 to 106) mg/dL Calcium (8.4-10.2) mg/dL Total Bilirubin (0.2-1.3) mg/dL AST (17-59) U/L ALT (0-50) U/L Alkaline Phosphatase (38-126) U/L Serum Total Protein (6.3-8.2) g/dL Albumin (3.5-5.0) g/dL Stool Occult Blood NEGATIVE (NEGATIVE) C. difficile Screen POSITIVE (NEGATIVE) C.difficile 027-NAP1-B1 PRESUMPTIVE POSITIVE (NEGATIVE) ABO Group Rh Factor Antibody Screen (NEGATIVE) Crossmatch (COMPATIBLE) 05/27/20 05/27/20 05/27/20 Range/Units 04:34 04:34 04:34 WBC 7.2 (4.0-10.5) K/mm3 RBC 2.24 L (4.1-5.6) M/mm3 Hgb 6.0 L* (12.5-18.0) gm/dl Hct 20.3 L (42-50) % MCV 90.6 (78-100) fl MCH 26.8 (26-32) pg MCHC 29.6 L (32-36) g/dl RDW 15.6 H (11.5-14.0) % Plt Count 235 (150-450) K/mm3 MPV 9.7 (7.5-11.0) fl Gran % 72.6 H (36.0-66.0) % Eos # (Auto) 0.56 H (0-0.5) Absolute Lymphs (auto) 0.60 L (1.0-4.6) Absolute Monos (auto) 0.81 (0.0-1.3) Lymphocytes % 8.3 L (24.0-44.0) % Monocytes % 11.2 (0.0-12.0) % Eosinophils % 7.8 H (0.00-5.0) % Basophils % 0.1 (0.0-0.4) % Absolute Granulocytes 5.24 (1.4-6.9) Basophils # 0.01 (0-0.4) Sodium 133 L (137-145) mmol/L Potassium 3.1 L (3.5-5.1) mmol/L Chloride 103 (98-107) mmol/L Carbon Dioxide 27 (22-30) mmol/L Anion Gap 7.0 (5-15) MEQ/L BUN 14 (9-20) mg/dL Creatinine 1.17 (0.66-1.25) mg/dL Estimated GFR > 60.0 ML/MIN Glucose 82 (74-106) mg/dL POC Glucometer (74 to 106) mg/dL Calcium 7.9 L (8.4-10.2) mg/dL Total Bilirubin 0.20 (0.2-1.3) mg/dL AST 25 (17-59) U/L ALT 11 (0-50) U/L Alkaline Phosphatase 55 (38-126) U/L Serum Total Protein 5.3 L (6.3-8.2) g/dL Albumin 2.5 L (3.5-5.0) g/dL Stool Occult Blood (NEGATIVE) C. difficile Screen (NEGATIVE) C.difficile 027-NAP1-B1 (NEGATIVE) ABO Group A Rh Factor POSITIVE Antibody Screen NEGATIVE (NEGATIVE) Crossmatch COMPATIBLE (COMPATIBLE) 05/27/20 05/27/20 05/27/20 Range/Units 04:34 07:37 11:22 WBC (4.0-10.5) K/mm3 RBC (4.1-5.6) M/mm3 Hgb (12.5-18.0) gm/dl Hct (42-50) % MCV (78-100) fl MCH (26-32) pg MCHC (32-36) g/dl RDW (11.5-14.0) % Plt Count (150-450) K/mm3 MPV (7.5-11.0) fl Gran % (36.0-66.0) % Eos # (Auto) (0-0.5) Absolute Lymphs (auto) (1.0-4.6) Absolute Monos (auto) (0.0-1.3) Lymphocytes % (24.0-44.0) % Monocytes % (0.0-12.0) % Eosinophils % (0.00-5.0) % Basophils % (0.0-0.4) % Absolute Granulocytes (1.4-6.9) Basophils # (0-0.4) Sodium (137-145) mmol/L Potassium (3.5-5.1) mmol/L Chloride (98-107) mmol/L Carbon Dioxide (22-30) mmol/L Anion Gap (5-15) MEQ/L BUN (9-20) mg/dL Creatinine (0.66-1.25) mg/dL Estimated GFR ML/MIN Glucose (74-106) mg/dL POC Glucometer 67 L 96 (74 to 106) mg/dL Calcium (8.4-10.2) mg/dL Total Bilirubin (0.2-1.3) mg/dL AST (17-59) U/L ALT (0-50) U/L Alkaline Phosphatase (38-126) U/L Serum Total Protein (6.3-8.2) g/dL Albumin (3.5-5.0) g/dL Stool Occult Blood (NEGATIVE) C. difficile Screen (NEGATIVE) C.difficile 027-NAP1-B1 (NEGATIVE) ABO Group Rh Factor Antibody Screen (NEGATIVE) Crossmatch COMPATIBLE (COMPATIBLE) 05/27/20 Range/Units 15:50 WBC (4.0-10.5) K/mm3 RBC (4.1-5.6) M/mm3 Hgb (12.5-18.0) gm/dl Hct (42-50) % MCV (78-100) fl MCH (26-32) pg MCHC (32-36) g/dl RDW (11.5-14.0) % Plt Count (150-450) K/mm3 MPV (7.5-11.0) fl Gran % (36.0-66.0) % Eos # (Auto) (0-0.5) Absolute Lymphs (auto) (1.0-4.6) Absolute Monos (auto) (0.0-1.3) Lymphocytes % (24.0-44.0) % Monocytes % (0.0-12.0) % Eosinophils % (0.00-5.0) % Basophils % (0.0-0.4) % Absolute Granulocytes (1.4-6.9) Basophils # (0-0.4) Sodium (137-145) mmol/L Potassium (3.5-5.1) mmol/L Chloride (98-107) mmol/L Carbon Dioxide (22-30) mmol/L Anion Gap (5-15) MEQ/L BUN (9-20) mg/dL Creatinine (0.66-1.25) mg/dL Estimated GFR ML/MIN Glucose (74-106) mg/dL POC Glucometer 106 (74 to 106) mg/dL Calcium (8.4-10.2) mg/dL Total Bilirubin (0.2-1.3) mg/dL AST (17-59) U/L ALT (0-50) U/L Alkaline Phosphatase (38-126) U/L Serum Total Protein (6.3-8.2) g/dL Albumin (3.5-5.0) g/dL Stool Occult Blood (NEGATIVE) C. difficile Screen (NEGATIVE) C.difficile 027-NAP1-B1 (NEGATIVE) ABO Group Rh Factor Antibody Screen (NEGATIVE) Crossmatch (COMPATIBLE) Multi-Disciplinary Progress Notes: Multi-Disciplinary Progress Notes 05/27/20 12:35 Case Management Note by Bettie Che PATIENT ACUTELY ILL-WILL CONTINUE TO FOLLOW Initialized on 05/27/20 12:35 - END OF NOTE 05/27/20 10:45 Physical Therapy Note by Colleen Vega P.Desiree. HELD THIS DATE PT. IS RECEIVING BLOOD. WILL RESUME TOMORROW. COLLEEN VEGA, PT Initialized on 05/27/20 10:45 - END OF NOTE Assessment/Plan (1) Anemia associated with acute blood loss Current Visit: Yes Status: Acute Assessment & Plan: Last Vital Signs Temp 100.0 F 05/27/20 16:00 Pulse 67 05/27/20 16:00 Resp 18 05/27/20 16:00 BP 157/67 05/27/20 16:00 Pulse Ox 93 L 05/27/20 16:00 Allergies sulfamethoxazole [From Bactrim] Allergy (Intermediate, Verified 05/23/20 10:49) Swelling trimethoprim [From Bactrim] Allergy (Intermediate, Verified 05/23/20 10:49) Swelling Sulfa (Sulfonamide Antibiotics) Adverse Reaction (Intermediate, Verified 05/23/20 10:49) Swelling Active Medications Acetaminophen (Tylenol 325 Mg) 650 mg PO Q4H PRN PRN PRN Reason: PAIN AND/OR FEVER Stop: 06/23/20 17:43 Last Admin: 05/27/20 16:33 Dose: 650 mg Documented by: Citalopram Hydrobromide (Celexa 20 Mg) 10 mg PO DAILY [facility] Stop: 06/23/20 09:59 Last Admin: 05/27/20 11:05 Dose: 10 mg Documented by: Clopidogrel Bisulfate (Plavix 75 Mg Tablet) 75 mg PO DAILY [facility] Stop: 06/23/20 09:59 Last Admin: 05/27/20 14:22 Dose: Not Given Documented by: Dextrose (D50w 50 Ml Abboject) 25 ml IV PRN PRN PRN Reason: HYPOGLYCEMIA Stop: 06/25/20 16:14 Enoxaparin Sodium (Enoxaparin Sodium) 40 mg SQ DAILY [facility] Stop: 06/24/20 09:59 Last Admin: 05/26/20 09:55 Dose: 40 mg Documented by: Ferrous Sulfate (Feosol 325 Mg) 325 mg PO DAILY [facility] Stop: 06/23/20 09:59 Last Admin: 05/27/20 11:06 Dose: 325 mg Documented by: Furosemide (Lasix 40 Mg) 40 mg PO BID DIURETIC [facility] Stop: 06/23/20 09:59 Last Admin: 05/27/20 16:33 Dose: 40 mg Documented by: Gabapentin (Neurontin 300 Mg) 300 mg PO HS [facility] Stop: 06/22/20 21:59 Last Admin: 05/26/20 21:50 Dose: 300 mg Documented by: Gabapentin (Neurontin 300 Mg) 300 mg PO QAM [facility] Stop: 06/23/20 09:59 Last Admin: 05/27/20 11:06 Dose: 300 mg Documented by: Glucagon (Glucagen 1 Mg) 1 mg IM PRN PRN PRN Reason: HYPOGLYCEMIA Stop: 06/25/20 16:14 Glucose (Glutose 15 Gm Oral Gel) 15 gm PO PRN PRN PRN Reason: HYPOGLYCEMIA Stop: 06/25/20 16:14 Last Admin: 05/26/20 16:35 Dose: 15 gm Documented by: Sodium Chloride (Sodium Chloride 0.9% 1000 Ml) 1,000 mls @ 100 mls/hr IV .Q10H [facility] Stop: 06/22/20 14:45 Last Admin: 05/27/20 07:50 Dose: 100 mls/hr Documented by: Ertapenem 1 g/ Sodium Chloride 100 mls @ 200 mls/hr IV Q24H [facility] Stop: 06/23/20 16:59 Last Admin: 05/27/20 17:27 Dose: 200 mls/hr Documented by: Sodium Chloride (Sodium Chloride 0.9% 1000 Ml) 1,000 mls @ 50 mls/hr IV .Q20H [facility] Stop: 06/26/20 05:44 Daptomycin 500 mg/ Sodium (Chloride) 10 mls @ 5 mls/min IV Q24H [facility] Stop: 06/26/20 11:59 Last Admin: 05/27/20 11:20 Dose: 5 mls/min Documented by: Insulin Glargine (Lantus Insulin) 22 unit SQ DAILY [facility] Stop: 06/23/20 09:59 Last Admin: 05/27/20 14:22 Dose: Not Given Documented by: Insulin Human Lispro (Humalog) 0 unit SQ UD PRN PRN Reason: HYPERGLYCEMIA Stop: 06/22/20 20:47 Last Admin: 05/24/20 18:00 Dose: 2 unit Documented by: Metoprolol Tartrate (Lopressor 50 Mg) 50 mg PO DAILY [facility] Stop: 06/23/20 09:59 Last Admin: 05/27/20 11:06 Dose: 50 mg Documented by: Simvastatin (Zocor 20mg) 40 mg PO DAILY [facility] Stop: 06/23/20 09:59 Last Admin: 05/27/20 11:06 Dose: 40 mg Documented by: Vancomycin HCl (Vancomycin Hcl Capsule) 250 mg PO Q6HT [facility] Stop: 06/26/20 07:29 Last Admin: 05/27/20 17:27 Dose: 250 mg Documented by: Intake & Output 05/27/20 05/28/20 11:59 11:59 Intake Total 4445 Output Total 1150 Balance 3295 Weight 85.3 kg 85.3 kg Orders 05/27/20 05:44 Consent,Obtain ROUTINE H&H 1 Hr Post Transfusion 1 HR POST TRANSFUS 05/27/20 05:45 NaCl 0.9% 1000 ml [Sodium Chloride 0.9% 1000 ML] 1,000 ml IV 50 mls/hr 05/27/20 06:00 Weight,Daily 0600 05/27/20 07:30 Vancomycin HCl [Vancomycin HCl Capsule] 250 mg PO Q6HT 05/27/20 17:20 CBC W DIFF Urgent CMP Urgent MAG [MAGNESIUM] Urgent Lab Tests 05/26/20 05/26/20 05/26/20 18:34 19:00 20:44 WBC RBC Hgb Hct MCV MCH MCHC RDW Plt Count MPV Gran % Eos # (Auto) Absolute Lymphs (auto) Absolute Monos (auto) Lymphocytes % Monocytes % Eosinophils % Basophils % Absolute Granulocytes Basophils # Sodium Potassium Chloride Carbon Dioxide Anion Gap BUN Creatinine Estimated GFR Glucose POC Glucometer 155 H Calcium Total Bilirubin AST ALT Alkaline Phosphatase Serum Total Protein Albumin Stool Occult Blood NEGATIVE C. difficile Screen POSITIVE C.difficile 027-NAP1-B1 PRESUMPTIVE POSITIVE ABO Group Rh Factor Antibody Screen Crossmatch 05/27/20 05/27/20 05/27/20 04:34 04:34 04:34 WBC 7.2 RBC 2.24 L Hgb 6.0 L* Hct 20.3 L MCV 90.6 MCH 26.8 MCHC 29.6 L RDW 15.6 H Plt Count 235 MPV 9.7 Gran % 72.6 H Eos # (Auto) 0.56 H Absolute Lymphs (auto) 0.60 L Absolute Monos (auto) 0.81 Lymphocytes % 8.3 L Monocytes % 11.2 Eosinophils % 7.8 H Basophils % 0.1 Absolute Granulocytes 5.24 Basophils # 0.01 Sodium 133 L Potassium 3.1 L Chloride 103 Carbon Dioxide 27 Anion Gap 7.0 BUN 14 Creatinine 1.17 Estimated GFR > 60.0 Glucose 82 POC Glucometer Calcium 7.9 L Total Bilirubin 0.20 AST 25 ALT 11 Alkaline Phosphatase 55 Serum Total Protein 5.3 L Albumin 2.5 L Stool Occult Blood C. difficile Screen C.difficile 027-NAP1-B1 ABO Group A Rh Factor POSITIVE Antibody Screen NEGATIVE Crossmatch COMPATIBLE 05/27/20 05/27/20 05/27/20 04:34 07:37 11:22 WBC RBC Hgb Hct MCV MCH MCHC RDW Plt Count MPV Gran % Eos # (Auto) Absolute Lymphs (auto) Absolute Monos (auto) Lymphocytes % Monocytes % Eosinophils % Basophils % Absolute Granulocytes Basophils # Sodium Potassium Chloride Carbon Dioxide Anion Gap BUN Creatinine Estimated GFR Glucose POC Glucometer 67 L 96 Calcium Total Bilirubin AST ALT Alkaline Phosphatase Serum Total Protein Albumin Stool Occult Blood C. difficile Screen C.difficile 027-NAP1-B1 ABO Group Rh Factor Antibody Screen Crossmatch COMPATIBLE 05/27/20 15:50 WBC RBC Hgb Hct MCV MCH MCHC RDW Plt Count MPV Gran % Eos # (Auto) Absolute Lymphs (auto) Absolute Monos (auto) Lymphocytes % Monocytes % Eosinophils % Basophils % Absolute Granulocytes Basophils # Sodium Potassium Chloride Carbon Dioxide Anion Gap BUN Creatinine Estimated GFR Glucose POC Glucometer 106 Calcium Total Bilirubin AST ALT Alkaline Phosphatase Serum Total Protein Albumin Stool Occult Blood C. difficile Screen C.difficile 027-NAP1-B1 ABO Group Rh Factor Antibody Screen Crossmatch Microbiology 05/24/20 09:35 Bone - Not Known Aerobic Culture - Preliminary 05/24/20 09:35 Bone - Not Known Aerobic Culture Result 1 - Preliminary 05/23/20 10:55 Blood Blood Culture Gram Stain - Final Not Reportable 05/23/20 10:55 Blood Blood Culture - Final NO GROWTH 05/23/20 11:14 Blood Blood Culture Gram Stain - Final Not Reportable 05/23/20 11:14 Blood Blood Culture - Final NO GROWTH Code(s): D62 - ACUTE POSTHEMORRHAGIC ANEMIA (2) Unresponsive episode Current Visit: Yes Status: Resolved (3) Osteomyelitis Current Visit: Yes Status: Acute Qualifiers: Osteomyelitis type: subacute Osteomyelitis location: foot Laterality: rig ht Qualified Code(s): M86.271 - Subacute osteomyelitis, right ankle and foot Code(s): M86.9 - OSTEOMYELITIS, UNSPECIFIED (4) SIRS (systemic inflammatory response syndrome) Current Visit: Yes Status: Resolved Code(s): R65.10 - SIRS OF NON-INFECTIOUS ORIGIN W/O ACUTE ORGAN DYSFUNCTION (5) Diabetes type 2, controlled Current Visit: No Status: Chronic Qualifiers: Diabetes mellitus penitentiary insulin use: with penitentiary use Diabetes mellitus complication status: with skin complications Diabetes mellitus com plication detail: with other skin complication Qualified Code(s): E11.628 - Type 2 diabetes mellitus with other skin complications; 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
[2020-05-27 17:57] LABS: BASOPHIL % 0.1 % (0.0-0.4); Basophil (Absolute #) 0.01 (0-0.4); Eosinophil % 6.4 % (0.00-5.0); Eosinophil (Absolute #) 0.51 (0-0.5); Lymphocyte (Absolute #) 0.72 (1.0-4.6); Lymphocytes % 9.1 % (24.0-44.0); Mean Cell Volume 89.4 fl (78-100); Mean Corpuscular Hemoglobin 27.8 pg (26-32); Mean Corpuscular Hgb Concent. 31.1 g/dl (32-36); Mean Platelet Volume 9.3 fl (7.5-11.0); Monocyte (Absolute #) 0.89 (0.0-1.3); Monocytes % 11.2 % (0.0-12.0); Neutrophil % 73.2 % (36.0-66.0); Platelet Count 236 K/mm3 (150-450); Red Blood Count 3.02 M/mm3 (4.1-5.6); Red Cell Distribution Width 15.1 % (11.5-14.0); White Blood Count 7.9 K/mm3 (4.0-10.5)
[2020-05-27 18:02] LABS: Hemoglobin 8.4 gm/dl (12.5-18.0)
[2020-05-27 18:32] LABS: ALBUMIN 2.8 g/dL (3.5-5.0); ALKALINE PHOSPHATASE 64 U/L (38-126); ANION GAP 8.1 MEQ/L (5-15); BLOOD UREA NITROGEN 14 mg/dL (9-20); CHLORIDE 100 mmol/L (98-107); Carbon Dioxide 27 mmol/L (22-30); Creatinine 1 1.15 mg/dL (0.66-1.25); EST GLOMERULAR FILTRATION RATE > 60.0 ML/MIN; Glucose 163 mg/dL (74-106); MAGNESIUM 1.8 mg/dL (1.6-2.3); Potassium 3.5 mmol/L (3.5-5.1); SGOT/AST 25 U/L (17-59); SGPT/ALT 12 U/L (0-50); SODIUM 132 mmol/L (137-145); Total Protein 5.9 g/dL (6.3-8.2)
[2020-05-28] MEDS: TYLENOL 325 MG PO PRN ×4 (00:37→22:00)
[2020-05-28 05:19] LABS: Absolute Neutrophil Ct (ANC) 7.41 (1.4-6.9); BASOPHIL % 0.2 % (0.0-0.4); Basophil (Absolute #) 0.02 (0-0.4); Eosinophil % 4.6 % (0.00-5.0); Eosinophil (Absolute #) 0.43 (0-0.5); Lymphocyte (Absolute #) 0.62 (1.0-4.6); Lymphocytes % 6.6 % (24.0-44.0); Mean Cell Volume 89.7 fl (78-100); Mean Corpuscular Hemoglobin 27.6 pg (26-32); Mean Corpuscular Hgb Concent. 30.8 g/dl (32-36); Mean Platelet Volume 9.4 fl (7.5-11.0); Monocyte (Absolute #) 0.95 (0.0-1.3); Monocytes % 10.1 % (0.0-12.0); Neutrophil % 78.5 % (36.0-66.0); Platelet Count 244 K/mm3 (150-450); Red Cell Distribution Width 15.1 % (11.5-14.0); White Blood Count 9.4 K/mm3 (4.0-10.5)
[2020-05-28 05:40] LABS: ALBUMIN 2.6 g/dL (3.5-5.0); ALKALINE PHOSPHATASE 69 U/L (38-126); ANION GAP 7.7 MEQ/L (5-15); BLOOD UREA NITROGEN 14 mg/dL (9-20); CHLORIDE 100 mmol/L (98-107); Carbon Dioxide 27 mmol/L (22-30); Creatinine 1 1.21 mg/dL (0.66-1.25); EST GLOMERULAR FILTRATION RATE > 60.0 ML/MIN; Glucose 200 mg/dL (74-106); Potassium 3.3 mmol/L (3.5-5.1); SGOT/AST 25 U/L (17-59); SGPT/ALT 12 U/L (0-50); SODIUM 132 mmol/L (137-145); Total Protein 5.5 g/dL (6.3-8.2)
[2020-05-28] MEDS: VANCOMYCIN HCL CAPSULE PO SCH ×3 (05:53→17:15)
[2020-05-28] MEDS ORDERED: PROVENTIL 2.5 MG/3 ML NEB IH PRN (07:37)
[2020-05-28] MEDS ORDERED: PROVENTIL 2.5 MG/3 ML NEB IH ONE (07:41)
[2020-05-28] MEDS: Sodium Chloride 0.9% 1000 ML 1,000 ML IV SCH ×7 (08:29→22:52)
--- NOTE | 2020-05-28 08:42 | XRAY ---
Indication: Decreased oxygen saturation. Crackles. Comparison: May 24, 2020. Portable chest demonstrates new cardiomegaly, central vascular congestion, pulmonary edema, and increasing bibasilar effusions/atelectasis left greater than right favoring cardiac decompensation/fluid overload. Superimposed pneumonia not completely excluded. Stable right arm PICC line.
[2020-05-28] MEDS: Lantus Insulin SQ SCH (09:52)
[2020-05-28] MEDS: Lasix 40 MG PO SCH ×2 (09:52→17:16)
[2020-05-28] MEDS: FEOSOL 325 MG PO SCH (09:52)
[2020-05-28] MEDS: Lopressor 50 MG PO SCH (09:52)
[2020-05-28] MEDS: ceLEXa 20 MG PO SCH (09:52)
[2020-05-28] MEDS: ZOCOR 20MG PO SCH (09:53)
[2020-05-28] MEDS: NEURONTIN 300 MG PO SCH ×2 (09:53→21:59)
[2020-05-28] MEDS: DAPTOmycin 500 MG in Sodium Chloride Flush 30 ML*** 10 ML IV SCH (12:51)
--- NOTE | 2020-05-28 13:54 | PCM.NOTE ---
Podiatry Narrative Note Podiatry Narrative Note: Subjective: Mr. Gomez is a very pleasant 84-year-old male seen at bedside today status post transmetatarsal amputation of the right foot postoperative day #4. At this time he admits to some continued pain. However he is in good spirits and admits that he does feel better. All vital signs on assessment appeared to have improved at this time. Patients condition has improved slightly as he is more responsive to direct questions. Will hold off for delayed primary closure at this time due to patients acute illness. Right lower extremity centered exam: Dressing clean dry and intact on arrival Dressings removed with minimal strike-through on the primary dressing Vascular: Pulses are nonpalpable to the DP and PT. Skin edges are blanchable without any residual indications of cellulitis to the right lower extremity. Brawny edema to the bilateral lower extremities still present secondary to his venous stasis. Transmetatarsal amputation site coapted without any dehiscence or broken sutures. Clean wound without any indications of residual infection however some necrotic and devitalized tissue at the edges of the surgical wound no remaining purulent drainage. No lymphadenopathy no lymphangitis. Minimal 1+ pitting edema to the bilateral lower extremity. Neurological: Protective sensation is diminished. Vibratory sensation is diminished. Reflexes within normal limits. Dermatological: surgical wound with stitches clean dry and intact with site at medial and lateral aspect of surgical wound open without any residual signs of infection. Musculoskeletal: Tenderness to palpation of the lateral aspect of the wound that radiates to the patient's knee. Transmetatarsal amputation site right foot. Assessment/plan: Osteomyelitis SIRS Sepsis Diabetic foot ulcer Diabetesmellitus type 2 Patient examination and evaluation Reviewed ancillary services notes. Vascular studies demonstrating significantly diminished and monophasic waveforms to superficial femoral, popliteal, distal posterior tibial and dorsalis pedis arteries to the right lower extremity there also monophasic waveforms to the left lower extremity for this I highly recommend a referral for vascular surgery and possible intervention if they deem necessary. 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 Patient currently on daptomycin 500 mg every 24 hours and ertapenem 1 g every 24 hours. Patient critically ill at this time. Will request medical risk stratification from Medical team prior to proceeding with repeat irrigation, debrdiement and delayed primary closure vs closure at beside vs closure by secondary intention. Following this procedure patient may be discharged per social work assessment and placement recommendations versus family recommendation
[2020-05-28] MEDS: Invanz 1 GM*** 1 G in Sodium Chloride 100ML MINI-BAG PLUS 100 ML IV SCH (17:16)
[2020-05-28] MEDS: HUMALOG SQ PRN ×2 (17:17→22:00)
--- NOTE | 2020-05-28 19:11 | PCM.NOTE ---
Date and Time: 05/28/201909 Subjective Assessment: patient more alert. still running fever - Review of Systems Constitutional: Fever, No Chills Eyes: No Symptoms Ears, Nose, & Throat: No Symptoms Respiratory: No Cough, No Short Of Breath Cardiac: No Chest Pain, No Edema, No Syncope Abdominal/Gastrointestinal: No Abdominal Pain, No Nausea, No Vomiting, No Diarrhea Genitourinary Symptoms: No Dysuria Musculoskeletal: No Back Pain, No Neck Pain Skin: No Rash Neurological: No Dizziness, No Focal Weakness, No Sensory Changes Psychological: No Symptoms Endocrine: No Symptoms Hematologic/Lymphatic: No Symptoms Immunological/Allergic: No Symptoms Objective Exam General Appearance: no apparent distress, alert Neurologic Exam: alert, oriented x 3, cooperative, sensation nml, No motor deficits Skin Exam: normal color, warm, dry Wound Assessment: Skin/Wound Assessment Wound/Incision Assessment Start: 05/25/20 20:46 Text: Status: Active Freq: Q4H Protocol: Document 05/28/20 15:58 RN (Rec: 05/28/20 16:00 RN [id number]) Wound/Incision Assessment Right Foot Wound Assessment Shift Assessment Wound Type Amputation Wound Stage Non Pressure Wound Dressing Status Dry & Intact Drainage Amount None General Appearance Clean/Dry Comment dressing is clean, dry, intact Wound Photo Photo Taken No Eye Exam: PERRL, EOMI, eyes nml inspection Ears, Nose, Throat Exam: normal ENT inspection, pharynx normal, moist mucous membranes Neck Exam: normal inspection, non-tender, supple, full range of motion Respiratory Exam: normal breath sounds, lungs clear, No respiratory distress Cardiovascular Exam: regular rate/rhythm, normal heart sounds Gastrointestinal/Abdomen Exam: soft, No tenderness, No mass Extremity Exam: normal inspection, normal range of motion Back Exam: normal inspection, normal range of motion, No CVA tenderness, No vertebral tenderness Male Genitalia Exam: deferred Rectal Exam: deferred OBJECTIVE DATA Vital Signs: Vital Signs - 24 hr Temp Pulse Resp BP BP Pulse Ox 05/28/20 18:25 98.9 F 05/28/20 15:58 20 05/28/20 15:56 99.9 F 70 27 H 159/68 91 L 05/28/20 13:00 99.6 F 05/28/20 12:00 17 05/28/20 11:52 101.7 F 72 17 181/78 93 L 05/28/20 10:33 98.9 F 88 20 174/76 94 L 05/28/20 08:00 20 05/28/20 07:55 76 20 93 L 05/28/20 07:48 99.1 F 81 17 174/76 93 L 05/28/20 07:27 92 L 05/28/20 04:00 98.7 F 78 14 141/63 91 L 05/28/20 00:00 101.3 F 87 20 182/84 92 L 05/27/20 20:00 19 93 L 05/27/20 19:39 99.7 F 73 19 186/77 90 L Oxygen-Last 24 hours Oxygen Flowrate (L/min)-RT 8 Oxygen Flowrate (L/min)-RT 7 Oxygen Flowrate (L/min)-RT 8 Pain Assessment - Last Documented Pain Intensity 0 Pain Scale Used 0-10 Pain Scale Intake and Output: Intake & Output 05/26/20 05/27/20 05/28/20 05/29/20 11:59 11:59 11:59 11:59 Intake Total 3952 4445 3892 510 Output Total 2350 1150 200 650 Balance 1602 3295 3692 -140 Weight 85.3 kg 87.3 kg Lab Results: Lab Results-Last 24 Hours 05/27/20 05/28/20 05/28/20 Range/Units 21:26 04:27 04:27 WBC 9.4 (4.0-10.5) K/mm3 RBC 2.90 L (4.1-5.6) M/mm3 Hgb 8.0 L (12.5-18.0) gm/dl Hct 26.0 L (42-50) % MCV 89.7 (78-100) fl MCH 27.6 (26-32) pg MCHC 30.8 L (32-36) g/dl RDW 15.1 H (11.5-14.0) % Plt Count 244 (150-450) K/mm3 MPV 9.4 (7.5-11.0) fl Gran % 78.5 H (36.0-66.0) % Eos # (Auto) 0.43 (0-0.5) Absolute Lymphs (auto) 0.62 L (1.0-4.6) Absolute Monos (auto) 0.95 (0.0-1.3) Lymphocytes % 6.6 L (24.0-44.0) % Monocytes % 10.1 (0.0-12.0) % Eosinophils % 4.6 (0.00-5.0) % Basophils % 0.2 (0.0-0.4) % Absolute Granulocytes 7.41 H (1.4-6.9) Basophils # 0.02 (0-0.4) Sodium 132 L (137-145) mmol/L Potassium 3.3 L (3.5-5.1) mmol/L Chloride 100 (98-107) mmol/L Carbon Dioxide 27 (22-30) mmol/L Anion Gap 7.7 (5-15) MEQ/L BUN 14 (9-20) mg/dL Creatinine 1.21 (0.66-1.25) mg/dL Estimated GFR > 60.0 ML/MIN Glucose 200 H (74-106) mg/dL POC Glucometer 171 H (74 to 106) mg/dL Calcium 8.0 L (8.4-10.2) mg/dL Total Bilirubin 0.40 (0.2-1.3) mg/dL AST 25 (17-59) U/L ALT 12 (0-50) U/L Alkaline Phosphatase 69 (38-126) U/L Serum Total Protein 5.5 L (6.3-8.2) g/dL Albumin 2.6 L (3.5-5.0) g/dL 05/28/20 05/28/20 05/28/20 Range/Units 07:14 11:27 16:32 WBC (4.0-10.5) K/mm3 RBC (4.1-5.6) M/mm3 Hgb (12.5-18.0) gm/dl Hct (42-50) % MCV (78-100) fl MCH (26-32) pg MCHC (32-36) g/dl RDW (11.5-14.0) % Plt Count (150-450) K/mm3 MPV (7.5-11.0) fl Gran % (36.0-66.0) % Eos # (Auto) (0-0.5) Absolute Lymphs (auto) (1.0-4.6) Absolute Monos (auto) (0.0-1.3) Lymphocytes % (24.0-44.0) % Monocytes % (0.0-12.0) % Eosinophils % (0.00-5.0) % Basophils % (0.0-0.4) % Absolute Granulocytes (1.4-6.9) Basophils # (0-0.4) Sodium (137-145) mmol/L Potassium (3.5-5.1) mmol/L Chloride (98-107) mmol/L Carbon Dioxide (22-30) mmol/L Anion Gap (5-15) MEQ/L BUN (9-20) mg/dL Creatinine (0.66-1.25) mg/dL Estimated GFR ML/MIN Glucose (74-106) mg/dL POC Glucometer 169 H 157 H 210 H (74 to 106) mg/dL Calcium (8.4-10.2) mg/dL Total Bilirubin (0.2-1.3) mg/dL AST (17-59) U/L ALT (0-50) U/L Alkaline Phosphatase (38-126) U/L Serum Total Protein (6.3-8.2) g/dL Albumin (3.5-5.0) g/dL Radiology Exams: Radiology Procedures Category Date Time Status CHEST 1 VIEW (PORTABLE) Stat Exams 05/28/20 07:45 Completed Multi-Disciplinary Progress Notes: Multi-Disciplinary Progress Notes 05/28/20 10:19 Case Management Note by Bettie Che PATIENT STILL ACUTELY ILL- WILL CONTINUE TO FOLLOW Initialized on 05/28/20 10:19 - END OF NOTE Assessment/Plan (1) Anemia associated with acute blood loss Current Visit: Yes Status: Acute Assessment & Plan: improved Code(s): D62 - ACUTE POSTHEMORRHAGIC ANEMIA (2) Unresponsive episode Current Visit: Yes Status: Resolved (3) Osteomyelitis Current Visit: Yes Status: Acute Qualifiers: Osteomyelitis type: subacute Osteomyelitis location: foot Laterality: right Qualified Code(s): M86.271 - Subacute osteomyelitis, right ankle and foot Code(s): M86.9 - OSTEOMYELITIS, UNSPECIFIED (4) SIRS (systemic inflammatory response syndrome) Current Visit: Yes Status: Resolved Code(s): R65.10 - SIRS OF NON-INFECTIOUS ORIGIN W/O ACUTE ORGAN DYSFUNCTION (5) Diabetes type 2, controlled Current Visit: No Status: Chronic Qualifiers: Diabetes mellitus termite control servicer insulin use: with termite control servicer use Diabetes mellitus complication status: with skin complications Diabetes mellitus complication detail: with other skin complication Qualified Code(s): E11.628 - Type 2 diabetes mellitus with other skin complications; Z79.4 - [facility] (current) use of insulin Code(s): E11.9 - TYPE 2 DIABETES MELLITUS WITHOUT COMPLICATIONS
[2020-05-29] MEDS: VANCOMYCIN HCL CAPSULE PO SCH ×3 (00:14→12:45)
[2020-05-29] MEDS: Sodium Chloride 0.9% 1000 ML 1,000 ML IV SCH ×2 (02:13→12:50)
[2020-05-29] MEDS: Lopressor 50 MG PO SCH (04:58)
[2020-05-29] MEDS: FEOSOL 325 MG PO SCH (09:42)
[2020-05-29] MEDS: Lasix 40 MG PO SCH (09:42)
[2020-05-29] MEDS: TYLENOL 325 MG PO PRN (09:43)
[2020-05-29] MEDS: ZOCOR 20MG PO SCH (09:44)
[2020-05-29] MEDS: NEURONTIN 300 MG PO SCH (09:46)
[2020-05-29] MEDS: ceLEXa 20 MG PO SCH (09:47)
[2020-05-29] MEDS: Lantus Insulin SQ SCH (09:48)
--- NOTE | 2020-05-29 11:35 | PCM.NOTE ---
Date and Time: 05/29/20 1132 Subjective Assessment: last 24 hours events noted. - Review of Systems Constitutional: No Fever, No Chills Eyes: No Symptoms Ears, Nose, & Throat: No Symptoms Respiratory: No Cough, No Short Of Breath Cardiac: No Chest Pain, No Edema, No Syncope Abdominal/Gastrointestinal: No Abdominal Pain, No Nausea, No Vomiting, No Diarrhea Genitourinary Symptoms: No Dysuria Musculoskeletal: No Back Pain, No Neck Pain Skin: No Rash Neurological: No Dizziness, No Focal Weakness, No Sensory Changes Psychological: No Symptoms Endocrine: No Symptoms Hematologic/Lymphatic: No Symptoms Immunological/Allergic: No Symptoms Objective Exam General Appearance: no apparent distress, alert Neurologic Exam: alert, oriented x 3, cooperative, normal mood/affect, nml cerebellar function, sensation nml, No motor deficits Skin Exam: normal color, warm, dry Wound Assessment: Skin/Wound Assessment Wound/Incision Assessment Start: 05/25/20 20:46 Text: Status: Active Freq: Q4H Protocol: Document 05/29/20 08:00 HN (Rec: 05/29/20 11:16 HN [id number]) Wound/Incision Assessment Right Foot Wound Assessment Shift Assessment Wound Type Amputation Wound Stage Non Pressure Wound Dressing Status Dry & Intact Drainage Amount None General Appearance Clean/Dry Comment dressing is clean, dry, intact . Not removed at this time. Eye Exam: PERRL, EOMI, eyes nml inspection Ears, Nose, Throat Exam: normal ENT inspection, pharynx normal, moist mucous membranes Neck Exam: normal inspection, non-tender, supple, full range of motion Respiratory Exam: normal breath sounds, lungs clear, No respiratory distress Cardiovascular Exam: regular rate/rhythm, normal heart sounds Gastrointestinal/Abdomen Exam: soft, No tenderness, No mass Extremity Exam: normal inspection, normal range of motion Back Exam: normal inspection, normal range of motion, No CVA tenderness, No vertebral tenderness Male Genitalia Exam: deferred Rectal Exam: deferred OBJECTIVE DATA Vital Signs: Vital Signs - 24 hr Temp Pulse Resp BP Pulse Ox 05/29/20 08:36 77 14 94 L 05/29/20 07:39 99.8 F 73 18 172/72 95 05/29/20 04:15 98.0 F 88 22 212/91 95 05/28/20 23:51 100.2 F 94 H 23 187/89 92 L 05/28/20 21:45 99.8 F 05/28/20 20:00 98.8 F 68 18 157/69 95 05/28/20 19:20 96 05/28/20 18:25 98.9 F 05/28/20 15:58 20 05/28/20 15:56 99.9 F 70 27 H 159/68 91 L 05/28/20 13:00 99.6 F 05/28/20 12:00 17 05/28/20 11:52 101.7 F 72 17 181/78 93 L Oxygen-Last 24 hours Oxygen Flowrate (L/min)-RT 9 Oxygen Flowrate (L/min)-RT 9 Oxygen Flowrate (L/min)-RT 9 Oxygen Flowrate (L/min)-RT 8 Oxygen Flowrate (L/min)-RT 8 Pain Assessment - Last Documented Pain Intensity 4 Pain Scale Used 0-10 Pain Scale Intake and Output: Intake & Output 05/26/20 05/27/20 05/28/20 05/29/20 11:59 11:59 11:59 11:59 Intake Total 3952 4445 3892 2582 Output Total 2350 2303 514 2502 Balance 1602 3295 3692 507 Weight 85.3 kg 87.3 kg Lab Results: Lab Results-Last 24 Hours 05/28/20 05/28/20 05/28/20 Range/Units 11:27 16:32 21:51 POC Glucometer 157 H 210 H 213 H (74 to 106) mg/dL 05/29/20 Range/Units 07:21 POC Glucometer 181 H (74 to 106) mg/dL Radiology Exams: Radiology Procedures Category Date Time Status CHEST 1 VIEW (PORTABLE) Stat Exams 05/28/20 07:45 Completed Assessment/Plan (1) Osteomyelitis Current Visit: Yes Status: Acute Qualifiers: Osteomyelitis type: subacute Osteomyelitis location: foot Laterality: right Qualified Code(s): M86.271 - Subacute osteomyelitis, right ankle and foot Assessment & Plan: Chief Complaint Diagnosis OSTEOMYELITIS, SIRS Allergies Allergy/AdvReac Type Severity Reaction Status Date / Time sulfamethoxazole Allergy Intermediate Swelling Verified 05/23/20 10:49 [From Bactrim] trimethoprim [From Bactrim] Allergy Intermediate Swelling Verified 05/23/20 10:49 Sulfa (Sulfonamide AdvReac Intermediate Swelling Verified 05/23/20 10:49 Antibiotics) Vital Signs (Last 24 hours) Temp Pulse Resp BP Pulse Ox 05/29/20 08:36 77 14 94 L 05/29/20 07:39 99.8 F 73 18 172/72 95 05/29/20 04:15 98.0 F 88 22 212/91 95 05/28/20 23:51 100.2 F 94 H 23 187/89 92 L 05/28/20 21:45 99.8 F 05/28/20 20:00 98.8 F 68 18 157/69 95 05/28/20 19:20 96 05/28/20 18:25 98.9 F 05/28/20 15:58 20 05/28/20 15:56 99.9 F 70 27 H 159/68 91 L 05/28/20 13:00 99.6 F 05/28/20 12:00 17 05/28/20 11:52 101.7 F 72 17 181/78 93 L Home Medications Medication Instructions Recorded Confirmed Last Taken Type Insulin Lispro [Humalog] 100 unit SQ UD PRN 05/23/20 05/23/20 Unknown History Current Medications Generic Name Dose Route Start Last Admin Trade Name Freq PRN Reason Stop Dose Admin Acetaminophen 650 mg 05/24/20 17:44 05/29/20 09:43 Tylenol 325 Mg PO 06/23/20 17:43 650 mg Q4H PRN PRN Administration PAIN AND/OR FEVER Albuterol Sulfate 2.5 mg 05/28/20 07:37 05/28/20 07:53 Proventil 2.5 Mg/3 Ml Neb IH 06/27/20 07:36 2.5 mg Q4H PRN PRN Administration SHORTNESS OF BREATH/WHEEZING Citalopram Hydrobromide 10 mg 05/24/20 10:00 05/29/20 09:47 Celexa 20 Mg PO 06/23/20 09:59 10 mg DAILY AMBERLY Administration Clopidogrel Bisulfate 75 mg 05/24/20 10:00 05/27/20 14:22 Plavix 75 Mg Tablet PO 06/23/20 09:59 Not Given DAILY AMBERLY Dextrose 25 ml 05/26/20 16:15 D50w 50 Ml Abboject IV 06/25/20 16:14 PRN PRN HYPOGLYCEMIA Enoxaparin Sodium 40 mg 05/25/20 10:00 05/26/20 09:55 Enoxaparin Sodium SQ 06/24/20 09:59 40 mg DAILY AMBERLY Administration Ferrous Sulfate 325 mg 05/24/20 10:00 05/29/20 09:42 Feosol 325 Mg PO 06/23/20 09:59 325 mg DAILY AMBERLY Administration Furosemide 40 mg 05/24/20 10:00 05/29/20 09:42 Lasix 40 Mg PO 06/23/20 09:59 40 mg BID DIURETIC AMBERLY Administration Gabapentin 300 mg 05/23/20 22:00 05/28/20 21:59 Neurontin 300 Mg PO 06/22/20 21:59 300 mg HS AMBERLY Administration Gabapentin 300 mg 05/24/20 10:00 05/29/20 09:46 Neurontin 300 Mg PO 06/23/20 09:59 300 mg QAM AMBERLY Administration Glucagon 1 mg 05/26/20 16:15 Glucagen 1 Mg IM 06/25/20 16:14 PRN PRN HYPOGLYCEMIA Glucose 15 gm 05/26/20 16:15 05/26/20 16:35 Glutose 15 Gm Oral Gel PO 06/25/20 16:14 15 gm PRN PRN Administration HYPOGLYCEMIA Sodium Chloride 1,000 mls @ 100 mls/hr 05/23/20 14:46 05/29/20 02:13 Sodium Chloride 0.9% 1000 Ml IV 06/22/20 14:45 100 mls/hr .Q10H AMBERLY Administration Ertapenem 1 g/ Sodium Chloride 100 mls @ 200 mls/hr 05/24/20 17:00 05/28/20 17:16 IV 06/23/20 16:59 200 mls/hr Q24H AMBERLY Administration Sodium Chloride 1,000 mls @ 50 mls/hr 05/27/20 05:45 05/28/20 22:52 Sodium Chloride 0.9% 1000 Ml IV 06/26/20 05:44 Not Given .Q20H AMBERLY Daptomycin 500 mg/ Sodium 10 mls @ 5 mls/min 05/27/20 12:00 05/28/20 12:51 Chloride IV 06/26/20 11:59 5 mls/min Q24H AMBERLY Administration Insulin Glargine 22 unit 02/26/21 10:00 05/29/20 09:48 Lantus Insulin SQ 06/23/20 09:59 22 unit DAILY AMBERLY Administration Insulin Human Lispro 0 unit 05/23/20 20:48 05/28/20 22:00 Humalog SQ 06/22/20 20:47 2 unit UD PRN Administration HYPERGLYCEMIA Metoprolol Tartrate 50 mg 05/24/20 10:00 05/29/20 04:58 Lopressor 50 Mg PO 06/23/20 09:59 50 mg DAILY AMBERLY Administration Simvastatin 40 mg 05/24/20 10:00 05/29/20 09:44 Zocor 20mg PO 06/23/20 09:59 40 mg DAILY AMBERLY Administration Vancomycin HCl 250 mg 05/27/20 07:30 05/29/20 04:57 Vancomycin Hcl Capsule PO 06/26/20 07:29 250 mg Q6HT AMBERLY Administration Discontinued Medications Generic Name Dose Route Start Last Admin Trade Name Freq PRN Reason Stop Dose Admin Acetaminophen 975 mg 05/23/20 10:56 05/23/20 11:08 Tylenol 325 Mg PO 05/23/20 10:57 975 mg STAT STA Administration Acetaminophen Confirm 05/23/20 11:06 Tylenol 325 Mg Administered 05/23/20 11:07 Dose 975 mg .ROUTE .STK-MED ONE Hydrocodone Bitart/Acetaminophen 1 tab 05/24/20 17:50 05/24/20 18:40 [place] 5/325 Mg PO 05/29/20 17:49 1 tab Q4H PRN PRN Administration PAIN Albuterol Sulfate Confirm 05/28/20 07:41 Proventil 2.5 Mg/3 Ml Neb Administered 05/28/20 07:42 Dose 2.5 mg IH .STK-MED ONE Bupivacaine HCl Confirm 05/24/20 08:37 Bupivacaine 0.5% Vial Administered 05/24/20 08:38 Dose 50 mg IJ .STK-MED ONE Bupivacaine HCl Confirm 05/24/20 08:41 Bupivacaine 0.5% Vial Administered 05/24/20 08:42 Dose 50 mg IJ .STK-MED ONE Daptomycin 500 mg 05/23/20 11:22 05/23/20 11:33 Daptomycin 500 Mg Injection IV 05/23/20 11:23 500 mg ONCE STA Administration Daptomycin 500 mg 05/24/20 18:00 Daptomycin 500 Mg Injection IV 06/23/20 17:59 DAILY AMBERLY Fentanyl Citrate Confirm 05/24/20 09:06 Sublimaze 100 Mcg/2 Ml Administered 05/24/20 09:07 Dose 100 mcg .ROUTE .STK-MED ONE Heparin Sodium (Beef Lung) 500 units 05/23/20 11:02 05/23/20 11:16 Heparin Lock Flush 100 Units/Ml 5ml Syringe PICC 06/22/20 11:01 500 units PRN PRN Administration IV PORT FLUSH Sodium Chloride 1,000 mls @ 999 mls/hr 05/23/20 10:56 05/23/20 12:29 Sodium Chloride 0.9% 1000 Ml IV 05/23/20 11:56 Infused .Q1H1M STA Infusion Sodium Chloride Confirm 05/23/20 11:06 Sodium Chloride 0.9% 1000 Ml Administered 05/23/20 11:07 Dose 1,000 mls @ ud .ROUTE .STK-MED ONE Ertapenem 1 g/ Sodium Chloride 100 mls @ 200 mls/hr 05/23/20 11:28 05/23/20 11:33 IV 05/23/20 11:57 200 mls/hr STAT STA Administration Lactated Ringer's 1,000 mls @ 50 mls/hr 05/24/20 08:00 05/24/20 08:10 Lactated Ringers IV 05/25/20 03:59 50 mls/hr .Q20H AMBERLY Administration Cefazolin Sodium/Dextrose 2 gm in 50 mls @ 100 mls/hr 05/24/20 08:00 05/24/20 08:10 Cefazolin 2 Gm-D5w Bag IV 05/24/20 12:00 100 mls/hr ONCALLTOOR AMBERLY Administration Daptomycin 500 mg/ Sodium 10 mls @ 5 mls/min 05/24/20 18:00 05/24/20 18:34 Chloride IV 06/23/20 17:59 5 mls/min Q24H AMBERLY Administration Daptomycin 500 mg/ Sodium 10 mls @ 5 mls/min 05/25/20 18:00 05/25/20 18:33 Chloride IV 06/24/20 17:59 5 mls/min Q24H AMBERLY Administration Ibuprofen 600 mg 05/23/20 10:56 05/23/20 11:08 Motrin 600 Mg PO 05/23/20 10:57 600 mg STAT STA Administration Ibuprofen Confirm 05/23/20 11:06 Motrin 600 Mg Administered 05/23/20 11:07 Dose 600 mg .ROUTE .STK-MED ONE Insulin Human Lispro 8 unit 05/24/20 08:00 05/26/20 16:43 Humalog SQ 06/23/20 07:59 Not Given TIDWMEALS AMBERLY Ketamine HCl Confirm 05/24/20 08:46 Ketamine Hcl 50 Mg/Ml Administered 05/24/20 08:47 Dose 25 mg .ROUTE .STK-MED ONE Lidocaine HCl Confirm 05/24/20 08:37 Xylocaine 1% Hcl 20 Ml Mdv Administered 05/24/20 08:38 Dose 1 ml .ROUTE .STK-MED ONE Midazolam HCl Confirm 05/24/20 08:46 Versed 2 Mg/2 Ml Injection Administered 05/24/20 08:47 Dose 2 mg .ROUTE .STK-MED ONE Morphine Sulfate 2 mg 05/23/20 14:46 Morphine Sulfate 2 Mg Inj IV 05/28/20 14:45 Q4H PRN PRN PAIN Naloxone HCl Confirm 05/24/20 20:46 Narcan 0.4 Mg/Ml Administered 05/24/20 20:47 Dose 0.4 mg .ROUTE .STK-MED ONE Naloxone HCl 0.4 mg 05/24/20 20:45 05/24/20 20:47 Narcan 0.4 Mg/Ml IV 05/24/20 20:46 0.4 mg STAT ONE Administration Phenylephrine HCl Confirm 05/24/20 09:20 Phenylephrine Hcl Administered 05/24/20 09:21 Dose 10 mg .ROUTE .STK-MED ONE Propofol Confirm 05/24/20 08:46 Diprivan 200 Mg/20 Ml Administered 05/24/20 08:47 Dose 200 mg IV .STK-MED ONE Vancomycin HCl 10 ml 05/26/20 22:00 05/27/20 04:49 Vancomycin 25mg/Ml Oral Solution Compound Kit PO 06/25/20 21:59 Not Given Q6H AMBERLY Vancomycin HCl 250 mg 05/26/20 22:00 05/26/20 21:50 Vancomycin Hcl Capsule PO 06/25/20 21:59 250 mg UD AMBERLY Administration Intake & Output (Last 24 hours) 05/26/20 05/27/20 05/28/20 05/29/20 11:59 11:59 11:59 11:59 Intake Total 3952 4445 3892 2582 Output Total 2350 4535 148 0101 Balance 1602 3295 3692 507 Weight 85.3 kg 87.3 kg Microbiology Results (Last 24 hours) 05/24/20 09:35 Bone - Not Known Aerobic Culture - Final 05/24/20 09:35 Bone - Not Known Aerobic Culture Result 1 - Final 05/24/20 09:35 Bone - Not Known Anaerobic Culture - Final 05/24/20 09:35 Bone - Not Known Anaerobic Culture - Final Laboratory Results (Last 24 hours) 05/29/20 05/28/20 05/28/20 07:21 21:51 16:32 POC Glucometer 181 H 213 H 210 H 05/28/20 11:27 POC Glucometer 157 H Orders (Last 24 hours) Category Date Time Status POCT GLUCOSE Stat Lab 05/28/20 11:27 Completed POCT GLUCOSE Stat Lab 05/28/20 16:32 Completed POCT GLUCOSE Stat Lab 05/28/20 21:51 Completed POCT GLUCOSE Stat Lab 05/29/20 07:21 Completed Patient Care Notes (Last 24 hours) 05/29/20 02:09 Nursing Note by Mary Sainz Patient's pulse ox off. This nurse went in to patient's room to place pulse ox back on patient's finger. Patient's oxymask off his face and on the floor. Patient confused to time. Oxymask O2 9L placed back on patient. O2 sat back up to 89-90% on 9L oxymask. This nurse notified RT. Yasmeen Initialized on 05/29/20 02:09 - END OF NOTE 05/28/20 22:53 Nursing Note by Mary Sainz Patient's O2 sat 85% on 8L O2 oxymask at rest. Increased oxygen to 9L O2 oxymask and patient's sat up to 90%. Encouraged patient to take big deep breaths. Patient able to follow commands and took 10 deep breaths. Yasmeen, RT notified. Initialized on 05/28/20 22:53 - END OF NOTE Code(s): M86.9 - OSTEOMYELITIS, UNSPECIFIED (2) Anemia associated with acute blood loss Current Visit: Yes Status: Acute Code(s): D62 - ACUTE POSTHEMORRHAGIC ANEMIA (3) Unresponsive episode Current Visit: Yes Status: Resolved (4) SIRS (systemic inflammatory response syndrome) Current Visit: Yes Status: Resolved Code(s): R65.10 - SIRS OF NON-INFECTIOUS ORIGIN W/O ACUTE ORGAN DYSFUNCTION (5) Diabetes type 2, controlled Current Visit: No Status: Chronic Qualifiers: Diabetes mellitus long term care administrator insulin use: with shelter use Diabetes mellitus complication status: with skin complications Diabetes mellitus complication detail: with other skin complication Qualified Code(s): E11.628 - Type 2 diabetes mellitus with other skin complications; Z79.4 - [facility] (current) use of insulin Code(s): E11.9 - TYPE 2 DIABETES MELLITUS WITHOUT COMPLICATIONS
[2020-05-29 12:43] LABS: Hematocrit 28.2 % (42-50); Hemoglobin 8.6 gm/dl (12.5-18.0); Mean Cell Volume 89.8 fl (78-100); Mean Corpuscular Hemoglobin 27.4 pg (26-32); Mean Corpuscular Hgb Concent. 30.5 g/dl (32-36); Mean Platelet Volume 9.5 fl (7.5-11.0); Platelet Count 283 K/mm3 (150-450); Red Blood Count 3.14 M/mm3 (4.1-5.6); Red Cell Distribution Width 15.1 % (11.5-14.0); White Blood Count 9.4 K/mm3 (4.0-10.5)
[2020-05-29] MEDS: HUMALOG SQ PRN (12:45)
[2020-05-29] MEDS: DAPTOmycin 500 MG in Sodium Chloride Flush 30 ML*** 10 ML IV SCH (12:46)
[2020-05-29 12:47] LABS: ANION GAP 7.8 MEQ/L (5-15); BLOOD UREA NITROGEN 15 mg/dL (9-20); CHLORIDE 99 mmol/L (98-107); Calcium 8.3 mg/dL (8.4-10.2); Carbon Dioxide 29 mmol/L (22-30); Creatinine 1 1.12 mg/dL (0.66-1.25); EST GLOMERULAR FILTRATION RATE > 60.0 ML/MIN; Glucose 355 mg/dL (74-106); Potassium 3.3 mmol/L (3.5-5.1); SODIUM 133 mmol/L (137-145)
[2020-05-29] MEDS ORDERED: PHARMACY DOSING REQUIRED: VANCOMYCIN IV STA (13:02)
--- NOTE | 2020-05-29 13:42 | XRAY ---
Indication: Fever. Comparison: May 28, 2020. Portable chest demonstrates new moderate right upper lobe consolidating airspace disease. Stable cardiomegaly, central vascular congestion, pulmonary edema, and small bibasilar effusions/atelectasis again favoring cardiac decompensation/fluid overload. Stable right PICC line.
[2020-05-29] MEDS ORDERED: VANCOMYCIN 1 GRAM/200 ML BAG 1 GM/200 ML PIGGYBACK IV SCH (14:00)
[2020-05-29] MEDS ORDERED: MERREM 500MG 500 MG in Sodium Chloride 100ML MINI-BAG PLUS 100 ML IV SCH (14:00)
--- NOTE | 2020-05-29 17:01 | PCM.DS ---
Discharge Summary Date of Admission: 05/23/20 21:50 Admitting Physician: THERESA POLANCO Primary Care Provider: [facility] Allergies Allergies sulfamethoxazole [From Bactrim] Allergy (Intermediate, Verified 05/23/20 10:49) Swelling trimethoprim [From Bactrim] Allergy (Intermediate, Verified 05/23/20 10:49) Swelling Sulfa (Sulfonamide Antibiotics) Adverse Reaction (Intermediate, Verified 05/23/20 10:49) Swelling Hospital Summary - Hospital Course Hospital Course: Chief Complaint Diagnosis OSTEOMYELITIS, SIRS Allergies Allergy/AdvReac Type Severity Reaction Status Date / Time sulfamethoxazole Allergy Intermediate Swelling Verified 05/23/20 10:49 [From Bactrim] trimethoprim [From Bactrim] Allergy Intermediate Swelling Verified 05/23/20 10:49 Sulfa (Sulfonamide AdvReac Intermediate Swelling Verified 05/23/20 10:49 Antibiotics) Vital Signs (Last 24 hours) Temp Pulse Resp BP Pulse Ox 05/29/20 12:00 98.9 F 80 18 159/70 96 05/29/20 08:36 77 14 94 L 05/29/20 07:39 99.8 F 73 18 172/72 95 05/29/20 04:15 98.0 F 88 22 212/91 95 05/28/20 23:51 100.2 F 94 H 23 187/89 92 L 05/28/20 21:45 99.8 F 05/28/20 20:00 98.8 F 68 18 157/69 95 05/28/20 19:20 96 05/28/20 18:25 98.9 F Home Medications Medication Instructions Recorded Confirmed Last Taken Type Insulin Lispro [Humalog] 100 unit SQ UD PRN 05/23/20 05/23/20 Unknown History Current Medications Generic Name Dose Route Start Last Admin Trade Name Freq PRN Reason Stop Dose Admin Acetaminophen 650 mg 05/24/20 17:44 05/29/20 09:43 Tylenol 325 Mg PO 06/23/20 17:43 650 mg Q4H PRN PRN Administration PAIN AND/OR FEVER Albuterol Sulfate 2.5 mg 05/28/20 07:37 05/28/20 07:53 Proventil 2.5 Mg/3 Ml Neb IH 06/27/20 07:36 2.5 mg Q4H PRN PRN Administration SHORTNESS OF BREATH/WHEEZING Citalopram Hydrobromide 10 mg 05/24/20 10:00 05/29/20 09:47 Celexa 20 Mg PO 06/23/20 09:59 10 mg DAILY AMBERLY Administration Clopidogrel Bisulfate 75 mg 05/24/20 10:00 05/27/20 14:22 Plavix 75 Mg Tablet PO 06/23/20 09:59 Not Given DAILY AMBERLY Dextrose 25 ml 05/26/20 16:15 D50w 50 Ml Abboject IV 06/25/20 16:14 PRN PRN HYPOGLYCEMIA Enoxaparin Sodium 40 mg 05/25/20 10:00 05/26/20 09:55 Enoxaparin Sodium SQ 06/24/20 09:59 40 mg DAILY AMBERLY Administration Ferrous Sulfate 325 mg 05/24/20 10:00 05/29/20 09:42 Feosol 325 Mg PO 06/23/20 09:59 325 mg DAILY AMBERLY Administration Furosemide 40 mg 05/24/20 10:00 05/29/20 09:42 Lasix 40 Mg PO 06/23/20 09:59 40 mg BID DIURETIC AMBERLY Administration Gabapentin 300 mg 05/23/20 22:00 05/28/20 21:59 Neurontin 300 Mg PO 06/22/20 21:59 300 mg HS AMBERLY Administration Gabapentin 300 mg 05/24/20 10:00 05/29/20 09:46 Neurontin 300 Mg PO 06/23/20 09:59 300 mg QAM AMBERLY Administration Glucagon 1 mg 05/26/20 16:15 Glucagen 1 Mg IM 06/25/20 16:14 PRN PRN HYPOGLYCEMIA Glucose 15 gm 05/26/20 16:15 05/26/20 16:35 Glutose 15 Gm Oral Gel PO 06/25/20 16:14 15 gm PRN PRN Administration HYPOGLYCEMIA Sodium Chloride 1,000 mls @ 100 mls/hr 05/23/20 14:46 05/29/20 12:50 Sodium Chloride 0.9% 1000 Ml IV 06/22/20 14:45 100 mls/hr .Q10H AMBERLY Administration Sodium Chloride 1,000 mls @ 50 mls/hr 05/27/20 05:45 05/28/20 22:52 Sodium Chloride 0.9% 1000 Ml IV 06/26/20 05:44 Not Given .Q20H AMEBRLY Daptomycin 500 mg/ Sodium 10 mls @ 5 mls/min 05/27/20 12:00 05/29/20 12:46 Chloride IV 06/26/20 11:59 5 mls/min Q24H AMBERLY Administration Meropenem 500 mg/ Sodium 100 mls @ 200 mls/hr 05/29/20 14:00 05/29/20 14:14 Chloride IV 06/28/20 13:59 200 mls/hr Q8HT AMBERLY Administration Vancomycin HCl 1 gm in 200 mls @ 133.333 mls/hr 05/29/20 14:00 05/29/20 14:58 Vancomycin 1 Gram/200 Ml Bag IV 06/28/20 13:59 133.333 mls/hr Q12H AMBERLY Administration Insulin Glargine 22 unit 05/24/20 10:00 05/29/20 09:48 Lantus Insulin SQ 06/23/20 09:59 22 unit DAILY AMBERLY Administration Insulin Human Lispro 0 unit 05/23/20 20:48 05/29/20 12:45 Humalog SQ 06/22/20 20:47 6 unit UD PRN Administration HYPERGLYCEMIA Metoprolol Tartrate 50 mg 05/24/20 10:00 05/29/20 04:58 Lopressor 50 Mg PO 06/23/20 09:59 50 mg DAILY AMBERLY Administration Simvastatin 40 mg 05/24/20 10:00 05/29/20 09:44 Zocor 20mg PO 06/23/20 09:59 40 mg DAILY AMBERLY Administration Vancomycin HCl 250 mg 05/27/20 07:30 05/29/20 12:45 Vancomycin Hcl Capsule PO 06/26/20 07:29 250 mg Q6HT AMBERLY Administration Discontinued Medications Generic Name Dose Route Start Last Admin Trade Name Freq PRN Reason Stop Dose Admin Acetaminophen 975 mg 05/23/20 10:56 05/23/20 11:08 Tylenol 325 Mg PO 05/23/20 10:57 975 mg STAT STA Administration Acetaminophen Confirm 05/23/20 11:06 Tylenol 325 Mg Administered 05/23/20 11:07 Dose 975 mg .ROUTE .STK-MED ONE Hydrocodone Bitart/Acetaminophen 1 tab 05/24/20 17:50 05/24/20 18:40 [place] 5/325 Mg PO 05/29/20 17:49 1 tab Q4H PRN PRN Administration PAIN Albuterol Sulfate Confirm 05/28/20 07:41 Proventil 2.5 Mg/3 Ml Neb Administered 05/28/20 07:42 Dose 2.5 mg IH .STK-MED ONE Bupivacaine HCl Confirm 05/24/20 08:37 Bupivacaine 0.5% Vial Administered 05/24/20 08:38 Dose 50 mg IJ .STK-MED ONE Bupivacaine HCl Confirm 05/24/20 08:41 Bupivacaine 0.5% Vial Administered 05/24/20 08:42 Dose 50 mg IJ .STK-MED ONE Daptomycin 500 mg 05/23/20 11:22 05/23/20 11:33 Daptomycin 500 Mg Injection IV 05/23/20 11:23 500 mg ONCE STA Administration Daptomycin 500 mg 05/24/20 18:00 Daptomycin 500 Mg Injection IV 06/23/20 17:59 DAILY AMBERLY Fentanyl Citrate Confirm 05/24/20 09:06 Sublimaze 100 Mcg/2 Ml Administered 05/24/20 09:07 Dose 100 mcg .ROUTE .STK-MED ONE Heparin Sodium (Beef Lung) 500 units 05/23/20 11:02 05/23/20 11:16 Heparin Lock Flush 100 Units/Ml 5ml Syringe PICC 06/22/20 11:01 500 units PRN PRN Administration IV PORT FLUSH Sodium Chloride 1,000 mls @ 999 mls/hr 05/23/20 10:56 05/23/20 12:29 Sodium Chloride 0.9% 1000 Ml IV 05/23/20 11:56 Infused .Q1H1M STA Infusion Sodium Chloride Confirm 05/23/20 11:06 Sodium Chloride 0.9% 1000 Ml Administered 05/23/20 11:07 Dose 1,000 mls @ ud .ROUTE .STK-MED ONE Ertapenem 1 g/ Sodium Chloride 100 mls @ 200 mls/hr 05/23/20 11:28 05/23/20 11:33 IV 05/23/20 11:57 200 mls/hr STAT STA Administration Lactated Ringer's 1,000 mls @ 50 mls/hr 05/24/20 08:00 05/24/20 08:10 Lactated Ringers IV 05/25/20 03:59 50 mls/hr .Q20H AMBERLY Administration Cefazolin Sodium/Dextrose 2 gm in 50 mls @ 100 mls/hr 05/24/20 08:00 05/24/20 08:10 Cefazolin 2 Gm-D5w Bag IV 05/24/20 12:00 100 mls/hr ONCALLTOOR AMBERLY Administration Ertapenem 1 g/ Sodium Chloride 100 mls @ 200 mls/hr 05/24/20 17:00 05/28/20 17:16 IV 06/23/20 16:59 200 mls/hr Q24H AMBERLY Administration Daptomycin 500 mg/ Sodium 10 mls @ 5 mls/min 05/24/20 18:00 05/24/20 18:34 Chloride IV 06/23/20 17:59 5 mls/min Q24H AMBERLY Administration Daptomycin 500 mg/ Sodium 10 mls @ 5 mls/min 05/25/20 18:00 05/25/20 18:33 Chloride IV 06/24/20 17:59 5 mls/min Q24H AMBERLY Administration Ibuprofen 600 mg 05/23/20 10:56 05/23/20 11:08 Motrin 600 Mg PO 05/23/20 10:57 600 mg STAT STA Administration Ibuprofen Confirm 05/23/20 11:06 Motrin 600 Mg Administered 05/23/20 11:07 Dose 600 mg .ROUTE .STK-MED ONE Insulin Human Lispro 8 unit 05/24/20 08:00 05/26/20 16:43 Humalog SQ 06/23/20 07:59 Not Given TIDWMEALS [facility] Ketamine HCl Confirm 05/24/20 08:46 Ketamine Hcl 50 Mg/Ml Administered 05/24/20 08:47 Dose 25 mg .ROUTE .STK-MED ONE Lidocaine HCl Confirm 05/24/20 08:37 Xylocaine 1% Hcl 20 Ml Mdv Administered 05/24/20 08:38 Dose 1 ml .ROUTE .STK-MED ONE Midazolam HCl Confirm 05/24/20 08:46 Versed 2 Mg/2 Ml Injection Administered 05/24/20 08:47 Dose 2 mg .ROUTE .STK-MED ONE Morphine Sulfate 2 mg 05/23/20 14:46 Morphine Sulfate 2 Mg Inj IV 05/28/20 14:45 Q4H PRN PRN PAIN Naloxone HCl Confirm 05/24/20 20:46 Narcan 0.4 Mg/Ml Administered 05/24/20 20:47 Dose 0.4 mg .ROUTE .STK-MED ONE Naloxone HCl 0.4 mg 05/24/20 20:45 05/24/20 20:47 Narcan 0.4 Mg/Ml IV 05/24/20 20:46 0.4 mg STAT ONE Administration Non-Formulary Medication 1 each 05/29/20 13:02 05/29/20 14:58 Pharmacy Dosing Required: Vancomycin IV 05/29/20 13:03 1 each STAT STA Administration Phenylephrine HCl Confirm 05/24/20 09:20 Phenylephrine Hcl Administered 05/24/20 09:21 Dose 10 mg .ROUTE .STK-MED ONE Propofol Confirm 05/24/20 08:46 Diprivan 200 Mg/20 Ml Administered 05/24/20 08:47 Dose 200 mg IV .STK-MED ONE Vancomycin HCl 10 ml 05/26/20 22:00 05/27/20 04:49 Vancomycin 25mg/Ml Oral Solution Compound Kit PO 06/25/20 21:59 Not Given Q6H AMBERLY Vancomycin HCl 250 mg 05/26/20 22:00 05/26/20 21:50 Vancomycin Hcl Capsule PO 06/25/20 21:59 250 mg UD AMBERLY Administration Intake & Output (Last 24 hours) 05/27/20 05/28/20 05/29/20 05/30/20 11:59 11:59 11:59 11:59 Intake Total 4445 3892 2582 600 Output Total 9425 316 1936 Balance 3295 3692 507 600 Weight 85.3 kg 87.3 kg 93.4 kg Microbiology Results (Last 24 hours) 05/24/20 09:35 Bone - Not Known Aerobic Culture - Final 05/24/20 09:35 Bone - Not Known Aerobic Culture Result 1 - Final 05/24/20 09:35 Bone - Not Known Anaerobic Culture - Final 05/24/20 09:35 Bone - Not Known Anaerobic Culture - Final Laboratory Results (Last 24 hours) 03/03/21 03/03/21 03/03/21 16:17 12:33 12:33 WBC 9.4 RBC 3.14 L Hgb 8.6 L Hct 28.2 L MCV 89.8 MCH 27.4 MCHC 30.5 L RDW 15.1 H Plt Count 283 MPV 9.5 Sodium 133 L Potassium 3.3 L Chloride 99 Carbon Dioxide 29 Anion Gap 7.8 BUN 15 Creatinine 1.12 Estimated GFR > 60.0 Glucose 355 H POC Glucometer 259 H Calcium 8.3 L Surg PTH Diagnosis 05/29/20 05/29/20 05/28/20 11:56 07:21 21:51 WBC RBC Hgb Hct MCV MCH MCHC RDW Plt Count MPV Sodium Potassium Chloride Carbon Dioxide Anion Gap BUN Creatinine Estimated GFR Glucose POC Glucometer 344 H 181 H 213 H Calcium Surg PTH Diagnosis 05/24/20 09:37 WBC RBC Hgb Hct MCV MCH MCHC RDW Plt Count MPV Sodium Potassium Chloride Carbon Dioxide Anion Gap BUN Creatinine Estimated GFR Glucose POC Glucometer Calcium Surg PTH Diagnosis See Note H Orders (Last 24 hours) Category Date Time Status Discharge Routine Discharge 05/29/20 Ordered CHEST 1 VIEW (PORTABLE) Routine Exams 05/29/20 13:02 Completed BMP Routine Lab 05/29/20 12:33 Completed CBC Routine Lab 05/29/20 12:33 Completed POCT GLUCOSE Stat Lab 05/28/20 16:32 Completed POCT GLUCOSE Stat Lab 05/28/20 21:51 Completed POCT GLUCOSE Stat Lab 05/29/20 07:21 Completed POCT GLUCOSE Stat Lab 05/29/20 11:56 Completed POCT GLUCOSE Stat Lab 05/29/20 16:17 Completed Meropenem [Merrem 500Mg] 500 mg Med 05/29/20 14:00 Active NaCl 0.9% 100 ml Mini-Bag Plus [Sodium Chloride 100ML MINI-BAG PLUS] 100 ml IV Q8HT Pharmacy Dose Request: Vancomy [Pharmacy Dosing Med 05/29/20 13:02 Discontinued Required: Vancomycin] 1 each IV STAT STA Vancomycin/Water For Inj (Peg) [Vancomycin 1 Gram/200 Med 05/29/20 14:00 Active ml Bag] 1 gm in 200 ml IV Q12H Patient Care Notes (Last 24 hours) 05/29/20 16:28 Nursing Note by Kristin Ceron report called to [facility] room 3120 Initialized on 05/29/20 16:28 - END OF NOTE 05/29/20 02:09 Nursing Note by Mary Sainz Patient's pulse ox off. This nurse went in to patient's room to place pulse ox back on patient's finger. Patient's oxymask off his face and on the floor. Patient confused to time. Oxymask O2 9L placed back on patient. O2 sat back up t o 89-90% on 9L oxymask. This nurse notified RT Yasmeen. Initialized on 05/29/20 02:09 - END OF NOTE 05/28/20 22:53 Nursing Note by Mary Sainz Patient's O2 sat 85% on 8L O2 oxymask at rest. Increased oxygen to 9L O2 oxymask and patient's sat up to 90%. Encouraged patient to take big deep breaths. Patient able to follow commands and took 10 deep breaths. RT Yasmeen notified. Initialized on 05/28/20 22:53 - END OF NOTE [facility] speciality care - Vitals & Intake/Output Vital Signs: Vital Signs Temperature 98.9 F 05/29/20 12:00 Pulse Rate 80 05/29/20 12:00 Respiratory Rate 18 05/29/20 12:00 Blood Pressure 159/70 05/29/20 12:00 O2 Sat by Pulse Oximetry 96 05/29/20 12:00 Intake & Output: Intake & Output 05/27/20 05/28/20 05/29/20 05/30/20 11:59 11:59 11:59 11:59 Intake Total 4445 3892 2582 600 Output Total 7778 402 8513 Balance 3295 3692 507 600 Weight 85.3 kg 87.3 kg 93.4 kg - Lab Result Diagrams: 05/29/20 12:33 05/29/20 12:33 Lab Results-Last 24 Hrs: Lab Results-Last 24 Hours 05/24/20 05/28/20 05/29/20 Range/Units 09:37 21:51 07:21 WBC (4.0-10.5) K/mm3 RBC (4.1-5.6) M/mm3 Hgb (12.5-18.0) gm/dl Hct (42-50) % MCV (78-100) fl MCH (26-32) pg MCHC (32-36) g/dl RDW (11.5-14.0) % Plt Count (150-450) K/mm3 MPV (7.5-11.0) fl Sodium (137-145) mmol/L Potassium (3.5-5.1) mmol/L Chloride (98-107) mmol/L Carbon Dioxide (22-30) mmol/L Anion Gap (5-15) MEQ/L BUN (9-20) mg/dL Creatinine (0.66-1.25) mg/dL Estimated GFR ML/MIN Glucose (74-106) mg/dL POC Glucometer 213 H 181 H (74 to 106) mg/dL Calcium (8.4-10.2) mg/dL Surg PTH Diagnosis See Note H 05/29/20 05/29/20 05/29/20 Range/Units 11:56 12:33 12:33 WBC 9.4 (4.0-10.5) K/mm3 RBC 3.14 L (4.1-5.6) M/mm3 Hgb 8.6 L (12.5-18.0) gm/dl Hct 28.2 L (42-50) % MCV 89.8 (78-100) fl MCH 27.4 (26-32) pg MCHC 30.5 L (32-36) g/dl RDW 15.1 H (11.5-14.0) % Plt Count 283 (150-450) K/mm3 MPV 9.5 (7.5-11.0) fl Sodium 133 L (137-145) mmol/L Potassium 3.3 L (3.5-5.1) mmol/L Chloride 99 (98-107) mmol/L Carbon Dioxide 29 (22-30) mmol/L Anion Gap 7.8 (5-15) MEQ/L BUN 15 (9-20) mg/dL Creatinine 1.12 (0.66-1.25) mg/dL Estimated GFR > 60.0 ML/MIN Glucose 355 H (74-106) mg/dL POC Glucometer 344 H (74 to 106) mg/dL Calcium 8.3 L (8.4-10.2) mg/dL Surg PTH Diagnosis 05/29/20 Range/Units 16:17 WBC (4.0-10.5) K/mm3 RBC (4.1-5.6) M/mm3 Hgb (12.5-18.0) gm/dl Hct (42-50) % MCV (78-100) fl MCH (26-32) pg MCHC (32-36) g/dl RDW (11.5-14.0) % Plt Count (150-450) K/mm3 MPV (7.5-11.0) fl Sodium (137-145) mmol/L Potassium (3.5-5.1) mmol/L Chloride (98-107) mmol/L Carbon Dioxide (22-30) mmol/L Anion Gap (5-15) MEQ/L BUN (9-20) mg/dL Creatinine (0.66-1.25) mg/dL Estimated GFR ML/MIN Glucose (74-106) mg/dL POC Glucometer 259 H (74 to 106) mg/dL Calcium (8.4-10.2) mg/dL Surg PTH Diagnosis Micro Results-Entire Visit: Microbiology 05/24/20 09:35 Aerobic Culture - Final Bone - Not Known Aerobic Culture Result 1 - Final Anaerobic Culture - Final Anaerobic Culture - Final 05/23/20 10:55 Blood Culture Gram Stain - Final Blood Not Reportable Blood Culture - Final NO GROWTH 05/23/20 11:14 Blood Culture Gram Stain - Final Blood Not Reportable Blood Culture - Final NO GROWTH 05/24/20 09:35 Wound Culture - Final Foot - Right Methicillin Resist Staph Aur 05/23/20 10:57 Urine Culture - Final Urine, Void NO GROWTH Accuchecks Date 05/29/20 Date 05/29/20 Time 11:30 Time 07:20 - Radiology Exams Ordered Rad Exams-Entire Visit: Radiology Procedures Category Date Time Status CHEST 1 VIEW (PORTABLE) Routine Exams 05/29/20 13:02 Completed CHEST 1 VIEW (PORTABLE) Stat Exams 05/28/20 07:45 Completed - Procedures and Test Procedures and Tests throughout Hospitalization: Therapy Orders & Screens 05/24/20 10:46 OT Eval and Treat ( Order) ROUTINE Comment: Consulting Provider: Physician Instructions: Reason For Exam: Diagnosis: pain in right foot for few days PT Eval & Treat ( Order) ONCE Reason for Eval:: Post op Diagnosis: pain in right foot for few days 05/24/20 10:54 Incentive Spirometry TID Comment: Diagnosis: pain in right foot for few days 05/24/20 11:47 Respiratory Therapy Assessment DAILY Comment: Diagnosis: pain in right foot for few days 05/24/20 20:50 EKG ROUTINE Comment: Diagnosis: OSTEOMYELITIS, SIRS 05/24/20 22:05 Oxygen Nasal Cannula 2 lpm Comment: Diagnosis: OSTEOMYELITIS, SIRS 05/28/20 07:55 Respiratory Therapy Assessment DAILY Comment: Diagnosis: OSTEOMYELITIS, SIRS Discharge Exam General Appearance: no apparent distress, alert Neurologic Exam: alert, oriented x 3, cooperative, normal mood/affect, nml cerebellar function, sensation nml, No motor deficits Eye Exam: PERRL, EOMI, eyes nml inspection Ears, Nose, Throat Exam: normal ENT inspection, pharynx normal, moist mucous membranes Neck Exam: normal inspection, non-tender, supple, full range of motion Respiratory Exam: normal breath sounds, lungs clear, No respiratory distress Cardiovascular Exam: regular rate/rhythm, normal heart sounds Gastrointestinal/Abdomen Exam: soft, No tenderness, No mass Male Genitalia Exam: deferred Rectal Exam: deferred Back Exam: normal inspection, normal range of motion, No CVA tenderness, No vertebral tenderness Extremity Exam: normal inspection, normal range of motion Skin Exam: normal color, warm, dry Wound Assessment: Skin/Wound Assessment Wound/Incision Assessment Start: 05/25/20 20:46 Text: Status: Active Freq: Q4H Protocol: Document 05/29/20 12:00 HN (Rec: 05/29/20 13:12 HN [id number]) Wound/Incision Assessment Right Foot Wound Assessment Shift Assessment Wound Type Amputation Wound Stage Non Pressure Wound Dressing Status Dry & Intact Drainage Amount None General Appearance Clean/Dry Comment dressing is clean, dry, intact . Not removed at this time. Wound Photo Photo Taken No Final Diagnosis/Problem List - Final Discharge Diagnosis/Problem (1) Osteomyelitis Current Visit: Yes Status: Acute Code(s): M86.9 - OSTEOMYELITIS, UNSPECIFIED (2) Anemia associated with acute blood loss Current Visit: Yes Status: Acute Code(s): D62 - ACUTE POSTHEMORRHAGIC ANEMIA (3) Unresponsive episode Current Visit: Yes Status: Resolved (4) SIRS (systemic inflammatory response syndrome) Current Visit: Yes Status: Resolved Code(s): R65.10 - SIRS OF NON-INFECTIOUS ORIGIN W/O ACUTE ORGAN DYSFUNCTION (5) Diabetes type 2, controlled Current Visit: No Status: Chronic Code(s): E11.9 - TYPE 2 DIABETES MELLITUS WITHOUT COMPLICATIONS - Discharge Disposition: XFER OTHER Condition: Stable Prescriptions: No Action Insulin Glargine [Lantus Insulin] 22 unit SQ DAILY Insulin Aspart [Novolog] 8 unit SQ TIDWMEALS Citalopram Hydrobromide [Celexa] 10 mg PO DAILY Gabapentin 300 mg PO HS Gabapentin 300 mg PO QAM Atorvastatin Calcium [Lipitor] 40 mg PO DAILY Clopidogrel Bisulfate 75 mg [PLAVIX 75 MG Tablet] 75 mg PO DAILY Metoprolol Tartrate [Lopressor] 50 mg PO DAILY Furosemide 40 mg [Lasix 40 MG] 40 mg PO BID Ferrous Sulfate [Iron] 325 mg PO DAILY Insulin Lispro [Humalog] 100 unit SQ UD PRN PRN Reason: Hyperglycemia Follow up with: KALLIE HAYES DPM [ACTIVE STAFF] - MELISSA ALVARES [Nurse Practioner] - Forms: Ambulance Transport Record, Transfer Record Inter-Agency
[2020-05-29 17:31] VITALS: BP 162/71; PULSE 70; O2SAT 99
== END 2020-05-29 16:53 | disposition home or self-care (01) | DRG 540 ==
LOC: ED 10:38 → MED SURG 14:33 → OBSVTOIN 21:50
PROVIDERS: ADMIT General Practice; ATTEND General Practice
DX: M86.171 Other acute osteomyelitis, right ankle and foot (principal); R65.10 Systemic inflammatory response syndrome (SIRS) of non-infectious origin without acute organ dysfunction; D62 Acute posthemorrhagic anemia; E11.628 Type 2 diabetes mellitus with other skin complications; Z79.4 Long term (current) use of insulin; Z79.899 Other long term (current) drug therapy; Z79.01 Long term (current) use of anticoagulants; I73.9 Peripheral vascular disease, unspecified
CPT/HCPCS: 0241U; 28805; 36000; 36415; 36430; 36600; 70450; 71045; 73630; 80048; 80053; 81001; 82375; 82803; 82947; 83605; 83735; 84484; 85025; 85027; 86850; 86900; 86901; 86922; 87040; 87070; 87075; 87077; 87086; 87186; 87493; 88311; 93005; 93041; 93268; 93925; 93971; 94640; 94760; 94762; 96360; 96374; 97161; 97165; 99214; 99231; 99232; 99285; G0328; P9016; 82274; 88307; 99100; J0690; J0878; J1335; J1642; J1650; J1817; J2250; J2310; J2370; J2704; J3010; J7609; A9270-GY; J3370

== ENCOUNTER 2021-06-22 15:53 | Emergency (ER) | payer MEDICARE, OTHER ==
[2021-06-22] MEDS ORDERED: XYLOCAINE 2% HCL 20 ML MDV ONE (15:58)
[2021-06-22] MEDS ORDERED: XYLOCAINE 2% HCL 20 ML MDV IJ ONE (16:33)
[2021-06-22] MEDS ORDERED: KEFLEX 500 MG PO ONE (17:06)
--- NOTE | 2021-06-22 17:09 | ERPHSYRPT ---
- History of Present Illness Time Seen by Provider: 06/22/21 16:02 Source: patient, EMS Exam Limitations: no limitations Patient Subjective Stated Complaint: Patient fell in gravel driveway and injured fingers on both hands and knees. Triage Nursing Assessment: Patient to ED with fall in gravel driveway. States he held onto trashcan and slid about 3 feet. Denies hitting head or hurting neck. Patient has skin tear on R hand and L middle finger. Patient has skin tear on knee. Physician History: 85-year-old male with history of hypertension, hyperlipidemia, diabetes mellitus right-handed dominant presented in the ER by EMS with laceration both hands. Patient report he was pushing trash can, lost balance and fell forward and tried to stop with himself with hands and has complaining of moderate to severe sharp pain with minimal movements of the fingers and better with being still. Minimal bleeding. No injury anywhere else. Did not hit his head, no loss of consciousness. Denies any chest pain palpitations, shortness of breath, dizziness or lightheadedness before or after the fall. Not taking any blood thinner. Occurred: just prior to arrival Method of Injury: fell Quality: sharpness Severity of Pain-Max: moderate Severity of Pain-Current: moderate Extremities Pain Location: 2nd finger: right, 3rd finger: right, 4th finger: right, 5th finger: right Modifying Factors: Improves With: immobilization. Worsens With: movement Associated Symptoms: none Allergies/Adverse Reactions: sulfamethoxazole [From Bactrim] Allergy (Intermediate, Verified 06/22/21 16:14) Swelling trimethoprim [From Bactrim] Allergy (Intermediate, Verified 06/22/21 16:14) Swelling Sulfa (Sulfonamide Antibiotics) Adverse Reaction (Intermediate, Verified 06/22/21 16:14) Swelling Home Medications: Atorvastatin Calcium [Lipitor] 40 mg PO DAILY 02/22/19 [History] Citalopram Hydrobromide [Celexa] 10 mg PO DAILY 02/22/19 [History] Clopidogrel Bisulfate 75 mg [PLAVIX 75 MG Tablet] 75 mg PO DAILY 02/22/19 [History] Ferrous Sulfate [Iron] 325 mg PO DAILY 02/22/19 [History] Furosemide 40 mg [Lasix 40 MG] 40 mg PO BID 02/22/19 [History] Gabapentin 300 mg PO HS 02/22/19 [History] Gabapentin 300 mg PO QAM 02/22/19 [History] Insulin Aspart [Novolog] 8 unit SQ TIDWMEALS 02/22/19 [History] Insulin Glargine [Lantus Insulin] 22 unit SQ DAILY 02/22/19 [History] Metoprolol Tartrate [Lopressor] 50 mg PO DAILY 02/22/19 [History] Insulin Lispro [Humalog] 100 unit SQ UD PRN 05/23/20 [History] Hx Tetanus, Diphtheria Vaccination/Date Given: No Hx Influenza Vaccination/Date Given: No Hx Pneumococcal Vaccination/Date Given: No Immunizations Up to Date: No Travel Risk - International Travel Have you traveled outside of the country in past 3 weeks: No - Coronavirus Screening Are you exhibiting any of the following symptoms?: No Close contact with a COVID-19 positive Pt in past 14-21 Days: No - Vaccine Status Have you recieved a Covid-19 vaccination: Yes 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[employer]: [employer] - Vaccination Dates Date of 2cond Vaccination (if applicable): unknown - Review of Systems Constitutional: No Symptoms Eyes: No Symptoms Ears, Nose, & Throat: No Symptoms Respiratory: No Symptoms Cardiac: No Symptoms Abdominal/Gastrointestinal: No Symptoms Genitourinary Symptoms: No Symptoms Musculoskeletal: Injury Skin: Skin Lesions Neurological: No Symptoms Psychological: No Symptoms Endocrine: No Symptoms Hematologic/Lymphatic: No Symptoms Immunological/Allergic: No Symptoms - Past Medical History Pertinent Past Medical History: Yes Neurological History: Stroke ENT History: No Pertinent History Cardiac History: Hypertension Respiratory History: No Pertinent History Endocrine Medical History: Diabetes Type II Musculoskeletal History: Arthritis GI Medical History: No Pertinent History History: Renal Disease Psycho-Social History: No Pertinent History Male Reproductive Disorders: No Pertinent History 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%" - Past Surgical History Past Surgical History: Yes Neuro Surgical History: No Pertinent History Cardiac: No Pertinent History Respiratory: No Pertinent History Gastrointestinal: No Pertinent History Genitourinary: No Pertinent History Musculoskeletal: No Pertinent History, Orthopedic Surgery Male Surgical History: No Pertinent History Other Surgical History: Callus removed from ball of right foot; 2ND DIGIT RIGHT FOOT REMOVED - Social History Smoking Status: Never smoker Exposure to second hand smoke: No Drug Use: none Patient Lives Alone: Yes - Nursing Vital Signs Nursing Vital Signs: Initial Vital Signs Temperature 98.2 F 03/27/22 15:54 Respiratory Rate 20 06/22/21 15:54 Blood Pressure 191/78 06/22/21 15:54 Pain Scale Pain Intensity 7 - Physical Exam General Appearance: no apparent distress, alert Eyes, Ears, Nose, Throat Exam: normal ENT inspection Neck Exam: normal inspection, non-tender, supple, full range of motion, No limited range of motion Cardiovascular/Respiratory Exam: chest non-tender, normal breath sounds, regular rate/rhythm, heart sounds normal Abdominal Exam: non-tender, soft, no organomegaly Back Exam: normal inspection, normal range of motion Shoulder Exam: normal inspection, no evidence of injury, normal ROM Elbow/Forearm Exam: normal inspection, non-tender, no evidence of injury, normal ROM Wrist Exam: normal inspection, non-tender, no evidence of injury, normal ROM Hand Exam: abrasions, laceration (Multiple laceration with degloving/crushed injury to fingers of right hand proximal phalanx second digit with minimal oozing. Skin loss from third and fourth digit proximal phalanx. Distal sensations intact. Cap refill less than 3 seconds. Crush injury left chird digit middle phalanx and proxima), limited ROM, soft tissue tenderness, swelling Procedures - Laceration/Wound Repair Hand Time of Procedure: 16:29 Wound Location: Left, Right Wound Length (cm): 9 Wound's Depth, Shape: into muscle, irregular, flap Wound Explored: contaminated Irrigated: Yes Hibiclens Prep: Yes Anesthesia: 2% Lidocaine Volume Anesthetic (ccs): 5 Wound Debrided: moderate Wound Repaired With: sutures Suture Size/Type: 4-0 Number of Sutures: 22 Sterile Dressing Applied?: Yes Splint Applied?: Yes Ordered Tests: Active Orders 24 hr Category Date Time Status Wound Care STAT Care 06/22/21 17:15 Active HAND (MINIMUM 3 VIEWS) Stat Exams 06/22/21 16:46 Ordered HAND (MINIMUM 3 VIEWS) Stat Exams 06/22/21 16:46 Ordered Medication Summary Discontinued Medications Generic Name Dose Route Start Last Admin Trade Name Freq PRN Reason Stop Dose Admin Cephalexin HCl 500 mg 06/22/21 17:06 06/22/21 17:14 Cephalexin Mh500 Mg Capsule PO 06/22/21 17:07 500 mg STAT ONE Administration Cephalexin HCl Confirm 06/22/21 17:13 Cephalexin Mh500 Mg Capsule Administered 06/22/21 17:14 Dose 500 mg .ROUTE .STK-MED ONE Lidocaine HCl Confirm 06/22/21 15:58 Lidocaine Hcl 2% 20 Ml Mdv Administered 06/22/21 15:59 Dose 10 ml .ROUTE .STK-MED ONE Lidocaine HCl 10 ml 06/22/21 16:33 06/22/21 16:33 Lidocaine Hcl 2% 20 Ml Mdv IJ 06/22/21 16:34 10 ml STAT ONE Administration - Progress Progress: improved Progress Note: 06/22/21 17:10 35 years old is evaluated for mechanical fall. No head injury. Nonfocal neuro exam. No chest pain palpitations or shortness of breath before or after. Has multiple crush/degloving injuries. I have tried to close laceration as much as I can but could not do from the area over the loss of skin. Dressing is applied. Started on antibiotics. Recommended Tylenol/tramadol which he has at home. Ambulation with a walker/cane. Outpatient hand surgery follow-up. - Departure Departure Disposition: Home Clinical Impression: Crush injury, Fall with injury Hand laceration Qualifiers: Encounter type: initial encounter Foreign body presence: without foreign body Laterality: unspecified laterality Qualified Code(s): S61.419A - Laceration without foreign body of unspecified hand, initial encounter Condition: Stable Critical Care Time: No Referrals: ZAN CHOWDHURY [Primary Care Provider] - Follow up/PCP as directed (1-2 days for reevaluation) ROBERT HENRY MD [NON-STAFF PHY W/O PRIVILEGES] - Follow up/PCP as directed (Call tomorrow for reevaluation) Instructions: Laceration Repair With Stitches (DC), Common Finger Injuries (DC) Additional Instructions: Take Tylenol/tramadol which you have at home as needed for pain. Follow-up with primary care/hand surgery for reevaluation. Avoid exertional activities with hands. Use cane/walker for ambulation all the time. Prescriptions: Bacitracin [Bacitraycin Plus] 28 gm TP BID 5 Days #28 tu Cephalexin Mh 500 mg [Keflex 500 mg] 500 mg PO TID #21 cap
[2021-06-22] MEDS ORDERED: KEFLEX 500 MG ONE (17:13)
[2021-06-22 17:30] VITALS: BP 188/73; PULSE 80; O2SAT 96
--- NOTE | 2021-06-22 18:35 | XRAY ---
Indication: Pain following fall. Comparison: None 3 view right hand demonstrates osteopenia, mild 1st metacarpal multangular degenerative changes, mild degenerative changes all IP joints, 2nd/3rd finger soft tissue radiopaque foreign bodies, old 5th metacarpal fracture, and extensive scattered vascular calcifications. No other bony, articular, or soft tissue abnormalities.
--- NOTE | 2021-06-22 18:37 | XRAY ---
Indication: Pain following fall. Comparison: None 3 view left hand demonstrates osteopenia, moderate 1st metacarpal multangular degenerative changes, mild degenerative changes all IP joints, and extensive scattered vascular calcifications. No other bony, articular, or soft tissue abnormalities.
== END 2021-06-22 17:29 | disposition home or self-care (01) ==
LOC: ED 15:53
DX: S67.190A Crushing injury of right index finger, initial encounter (principal); S67.192A Crushing injury of right middle finger, initial encounter; S67.194A Crushing injury of right ring finger, initial encounter; S61.210A Laceration without foreign body of right index finger without damage to nail, initial encounter; S61.212A Laceration without foreign body of right middle finger without damage to nail, initial encounter; S61.214A Laceration without foreign body of right ring finger without damage to nail, initial encounter; S67.193A Crushing injury of left middle finger, initial encounter; S61.213A Laceration without foreign body of left middle finger without damage to nail, initial encounter; W01.10XA Fall on same level from slipping, tripping and stumbling with subsequent striking against unspecified object, initial encounter; Y93.H9 Activity, other involving exterior property and land maintenance, building and construction; Y92.007 Garden or yard of unspecified non-institutional (private) residence as the place of occurrence of the external cause; I10 Essential (primary) hypertension; E78.5 Hyperlipidemia, unspecified; E11.9 Type 2 diabetes mellitus without complications; Z79.01 Long term (current) use of anticoagulants; Z79.4 Long term (current) use of insulin; Z79.899 Other long term (current) drug therapy
CPT/HCPCS: 12004; 73130; 96372; 99284; A9270-GY

== ENCOUNTER 2021-10-17 10:55 | Emergency (ER) | payer MEDICARE, OTHER ==
--- NOTE | 2021-10-17 11:00 | ERPHSYRPT ---
- History of Present Illness Time Seen by Provider: 10/17/21 10:59 Source: patient Exam Limitations: no limitations Physician History: 85 y/o white male pt of dr. lopez presents via ambulance secondary to unresponsive pt found this am on the floor by caregiver. blood glucose 36. pt diabetic. took his insulin last pm. got up this am but did not eat. does not recall events this am. pt received iv glucose. he did not want oral intake. upon arrival to ED bs 58. pt awake, alert and oriented. moves all extremities. denies cp, denies abd pain, denies sob. pt has h/o htn, hyperlipidemia, cva in past(on Plavix) and renal issues(dr. hopper) Timing/Duration: today Severity: moderate Associated Symptoms: syncope, weakness Allergies/Adverse Reactions: sulfamethoxazole [From Bactrim] Allergy (Intermediate, Verified 10/17/21 11:11) Swelling trimethoprim [From Bactrim] Allergy (Intermediate, Verified 10/17/21 11:11) Swelling Sulfa (Sulfonamide Antibiotics) Adverse Reaction (Intermediate, Verified 10/17/21 11:11) Swelling Home Medications: Citalopram Hydrobromide [Celexa] 5 mg PO DAILY 02/22/19 [History] Ferrous Sulfate [Iron] 325 mg PO BID 02/22/19 [History] Gabapentin 300 mg PO QAM 02/22/19 [History] Insulin Aspart [Novolog] 12 unit SQ TIDWMEALS 02/22/19 [History] Insulin Glargine [Lantus Insulin] 15 unit SQ DAILY 02/22/19 [History] Aspirin EC 81 mg [Ecotrin 81 mg] 81 mg PO DAILY 10/17/21 [History] Dapagliflozin Propanediol [Farxiga] 5 mg PO DAILY 10/17/21 [History] Glipizide 5 mg [Glucotrol 5 MG] 5 mg PO BID 10/17/21 [History] Rivaroxaban [Xarelto] 2.5 mg PO BID 10/17/21 [History] Rosuvastatin Calcium 40 mg PO DAILY 10/17/21 [History] Torsemide 100 mg PO TID 10/17/21 [History] Hx Tetanus, Diphtheria Vaccination/Date Given: No Hx Influenza Vaccination/Date Given: No Hx Pneumococcal Vaccination/Date Given: No Travel Risk - International Travel Have you traveled outside of the country in past 3 weeks: No - Coronavirus Screening Are you exhibiting any of the following symptoms?: No Close contact with a COVID-19 positive Pt in past 14-21 Days: No - Vaccine Status Have you recieved a Covid-19 vaccination: 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[employer]: [employer] - Vaccination Dates Date of 2cond Vaccination (if applicable): unknown - Review of Systems Constitutional: No Symptoms Eyes: No Symptoms Ears, Nose, & Throat: No Symptoms Respiratory: No Symptoms Cardiac: No Symptoms Abdominal/Gastrointestinal: No Symptoms Genitourinary Symptoms: No Symptoms Musculoskeletal: No Symptoms Skin: No Symptoms Neurological: No Symptoms Psychological: No Symptoms Endocrine: No Symptoms Hematologic/Lymphatic: No Symptoms Immunological/Allergic: No Symptoms - Past Medical History Pertinent Past Medical History: Yes Neurological History: Stroke ENT History: No Pertinent History Cardiac History: Hypertension Respiratory History: No Pertinent History Endocrine Medical History: Diabetes Type II Musculoskeletal History: Arthritis GI Medical History: No Pertinent History History: Renal Disease Psycho-Social History: No Pertinent History Male Reproductive Disorders: No Pertinent History 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%", fall injuring jordon hands - Past Surgical History Past Surgical History: Yes Neuro Surgical History: No Pertinent History Cardiac: No Pertinent History Respiratory: No Pertinent History Gastrointestinal: No Pertinent History Genitourinary: No Pertinent History Musculoskeletal: No Pertinent History, Orthopedic Surgery Male Surgical History: No Pertinent History Other Surgical History: Callus removed from ball of right foot; 2ND DIGIT RIGHT FOOT REMOVED - Social History Smoking Status: Never smoker Exposure to second hand smoke: No Drug Use: none Patient Lives Alone: Yes - Nursing Vital Signs Nursing Vital Signs: Initial Vital Signs Temperature 97.2 F 10/17/21 10:57 Pulse Rate 82 10/17/21 10:57 Blood Pressure 158/72 10/17/21 10:57 O2 Sat by Pulse Oximetry 96 10/17/21 10:57 Pain Scale Pain Intensity 0 - Physical Exam General Appearance: no apparent distress, alert Eye Exam: PERRL/EOMI, eyes nml inspection Ears, Nose, Throat Exam: normal ENT inspection, moist mucous membranes Neck Exam: normal inspection, non-tender, supple, full range of motion Respiratory Exam: normal breath sounds, lungs clear, airway intact, No chest tenderness, No respiratory distress Cardiovascular Exam: regular rate/rhythm, normal heart sounds, normal peripheral pulses Gastrointestinal/Abdomen Exam: soft, normal bowel sounds, No tenderness Rectal Exam: not done Back Exam: normal inspection, normal range of motion, No CVA tenderness, No vertebral tenderness Extremity Exam: normal inspection, normal range of motion, pelvis stable Neurologic Exam: alert, oriented x 3, cooperative, police commissioner II-XII nml as tested, normal mood/affect, sensation nml Skin Exam: normal color, warm, dry Lymphatic Exam: No adenopathy SpO2 Interpretation: normal O2 Delivery: Room Air - Course Nursing assessment & vital signs reviewed: Yes Ordered Tests: Active Orders 24 hr Category Date Time Status EKG-ER Only STAT Care 10/17/21 11:11 Active IV Insertion STAT Care 10/17/21 11:11 Active POCT Glucose Check STAT Care 10/17/21 11:11 Active Pulse Oximetry (ED) STAT Care 10/17/21 11:11 Active HEAD WITHOUT CONTRAST [CT] Stat Exams 10/17/21 12:04 Completed CBC W DIFF Stat Lab 10/17/21 11:32 Completed CMP Stat Lab 10/17/21 11:32 Completed CULTURE,URINE Stat Lab 10/17/21 11:32 Received ETHYL ALCOHOL Stat Lab 10/17/21 11:32 Completed TROPONIN Q3H Lab 10/17/21 11:32 Completed TROPONIN Q3H Lab 10/17/21 14:15 Ordered TROPONIN Q3H Lab 10/17/21 17:15 Ordered TROPONIN Q3H Lab 10/17/21 20:15 Ordered TROPONIN Q3H Lab 10/17/21 23:15 Ordered UA W/RFX CULTURE Stat Lab 10/17/21 11:32 Completed Urine Triage Profile Stat Lab 10/17/21 11:32 Completed Lab/Rad Data: Laboratory Result Diagrams 10/17/21 11:32 10/17/21 11:32 Laboratory Results 10/17/21 10/17/21 10/17/21 Range/Units 11:32 11:32 11:32 WBC (4.0-10.5) x10^3/uL RBC (4.1-5.6) x10^6/uL Hgb (12.5-18.0) g/dL Hct (42-50) % MCV (78-100) fL MCH (26-32) pg MCHC (32-36) g/dL RDW (11.5-14.0) % Plt Count (150-450) x10^3/uL MPV (7.5-11.0) fL Gran % (36.0-66.0) % Immature Gran % (Auto) (0.00-0.4) % Nucleat RBC Rel Count (0.00-0.1) % Eos # (Auto) (0-0.5) x10^3/uL Immature Gran # (Auto) (0.00-0.03) x10^3u/L Absolute Lymphs (auto) (1.0-4.6) x10^3/uL Absolute Monos (auto) (0.0-1.3) x10^3/uL Absolute Nucleated RBC (0.00-0.01) x10^3u/L Lymphocytes % (24.0-44.0) % Monocytes % (0.0-12.0) % Eosinophils % (0.00-5.0) % Basophils % (0.0-0.4) % Absolute Granulocytes (1.4-6.9) x10^3/uL Basophils # (0-0.4) x10^3/uL Sodium (137-145) mmol/L Potassium (3.5-5.1) mmol/L Chloride (98-107) mmol/L Carbon Dioxide (22-30) mmol/L Anion Gap (5-15) MEQ/L BUN (9-20) mg/dL Creatinine (0.66-1.25) mg/dL Estimated GFR ML/MIN Glucose (74-106) mg/dL Calcium (8.4-10.2) mg/dL Total Bilirubin (0.2-1.3) mg/dL AST (17-59) U/L ALT (0-50) U/L Alkaline Phosphatase (38-126) U/L Troponin I (0.000-0.034) ng/mL Serum Total Protein (6.3-8.2) g/dL Albumin (3.5-5.0) g/dL Urinalys Dipstick Clnc MAIN LAB Urine Color YELLOW (YELLOW) Urine Appearance CLEAR (CLEAR) Urine pH 6.5 (5-6) Ur Specific Norton 1.015 (1.005-1.025) POC Urine Protein Conf TRACE (Negative) Urine Ketones NEGATIVE (NEGATIVE) Urine Nitrite NEGATIVE (NEGATIVE) Urine Bilirubin NEGATIVE (NEGATIVE) Urine Urobilinogen 0.2 (0-1) mg/dL Urine Leukocytes NEGATIVE (NEGATIVE) Urine WBC (Auto) NONE (0-5) /HPF Urine RBC (Auto) 3-5 (0-2) /HPF U Epithel Cells (Auto) NONE (FEW) /HPF Urine Bacteria (Auto) RARE (NEGATIVE) /HPF Urine RBC TRACE-INTACT (0-5) Pérez/ul Ur Culture Indicated? YES Urine Glucose 500 (NEGATIVE) mg/dL Urine Opiates Level NEGATIVE (NEGATIVE) Ur Methadone NEGATIVE (NEGATIVE) Urine Barbiturates NEGATIVE (NEGATIVE) Ur Phencyclidine (PCP) NEGATIVE (NEGATIVE) Urine Amphetamine NEGATIVE (NEGATIVE) U Benzodiazepine Level NEGATIVE (NEGATIVE) Urine Cocaine NEGATIVE (NEGATIVE) Urine Marijuana (THC) NEGATIVE (NEGATIVE) Ethyl Alcohol < 10 (0-10) mg/dL 10/17/21 10/17/21 10/17/21 Range/Units 11:32 11:32 11:32 WBC 4.4 (4.0-10.5) x10^3/uL RBC 3.62 L (4.1-5.6) x10^6/uL Hgb 10.1 L (12.5-18.0) g/dL Hct 32.5 L (42-50) % MCV 89.8 (78-100) fL MCH 27.9 (26-32) pg MCHC 31.1 L (32-36) g/dL RDW 15.3 H (11.5-14.0) % Plt Count 203 (150-450) x10^3/uL MPV 9.7 (7.5-11.0) fL Gran % 74.7 H (36.0-66.0) % Immature Gran % (Auto) 0.5 H (0.00-0.4) % Nucleat RBC Rel Count 0.0 (0.00-0.1) % Eos # (Auto) 0.07 (0-0.5) x10^3/uL Immature Gran # (Auto) 0.02 (0.00-0.03) x10^3u/L Absolute Lymphs (auto) 0.42 L (1.0-4.6) x10^3/uL Absolute Monos (auto) 0.58 (0.0-1.3) x10^3/uL Absolute Nucleated RBC 0.00 (0.00-0.01) x10^3u/L Lymphocytes % 9.5 L (24.0-44.0) % Monocytes % 13.2 H (0.0-12.0) % Eosinophils % 1.6 (0.00-5.0) % Basophils % 0.5 (0.0-0.4) % Absolute Granulocytes 3.30 (1.4-6.9) x10^3/uL Basophils # 0.02 (0-0.4) x10^3/uL Sodium 133 L (137-145) mmol/L Potassium 3.7 (3.5-5.1) mmol/L Chloride 99 (98-107) mmol/L Carbon Dioxide 28 (22-30) mmol/L Anion Gap 9.1 (5-15) MEQ/L BUN 43 H (9-20) mg/dL Creatinine 2.20 H (0.66-1.25) mg/dL Estimated GFR 30.5 ML/MIN Glucose 159 H (74-106) mg/dL Calcium 8.5 (8.4-10.2) mg/dL Total Bilirubin 0.40 (0.2-1.3) mg/dL AST 23 (17-59) U/L ALT 13 (0-50) U/L Alkaline Phosphatase 82 (38-126) U/L Troponin I < 0.012 (0.000-0.034) ng/mL Serum Total Protein 7.1 (6.3-8.2) g/dL Albumin 3.4 L (3.5-5.0) g/dL Urinalys Dipstick Clnc Urine Color (YELLOW) Urine Appearance (CLEAR) Urine pH (5-6) Ur Specific Norton (1.005-1.025) POC Urine Protein Conf (Negative) Urine Ketones (NEGATIVE) Urine Nitrite (NEGATIVE) Urine Bilirubin (NEGATIVE) Urine Urobilinogen (0-1) mg/dL Urine Leukocytes (NEGATIVE) Urine WBC (Auto) (0-5) /HPF Urine RBC (Auto) (0-2) /HPF U Epithel Cells (Auto) (FEW) /HPF Urine Bacteria (Auto) (NEGATIVE) /HPF Urine RBC (0-5) Pérez/ul Ur Culture Indicated? Urine Glucose (NEGATIVE) mg/dL Urine Opiates Level (NEGATIVE) Ur Methadone (NEGATIVE) Urine Barbiturates (NEGATIVE) Ur Phencyclidine (PCP) (NEGATIVE) Urine Amphetamine (NEGATIVE) U Benzodiazepine Level (NEGATIVE) Urine Cocaine (NEGATIVE) Urine Marijuana (THC) (NEGATIVE) Ethyl Alcohol (0-10) mg/dL - Progress Progress: improved Progress Note: 10/17/21 12:27 Patient tolerating diet at this time. 10/17/21 12:30 ct scan of head without contrast shows nonacute senile brain. old left cerebellar infart Counseled pt/family regarding: lab results, diagnosis, need for follow-up, rad results - Departure Departure Disposition: Home Clinical Impression: Hypoglycemia Condition: Stable Critical Care Time: No Referrals: ZAN LOPEZ [Primary Care Provider] - Follow up/PCP as directed Additional Instructions: monitor and treat your blood sugar levels closely. make sure you are eating well before taking blood sugar lowering medication
[2021-10-17 11:14] VITALS: PULSE 82; O2SAT 96
[2021-10-17 11:32] LABS: Basophil (Absolute #) 0.02 x10^3/uL (0-0.4); Eosinophil % 1.6 % (0.00-5.0); Eosinophil (Absolute #) 0.07 x10^3/uL (0-0.5); Hematocrit 32.5 % (42-50); Hemoglobin 10.1 g/dL (12.5-18.0); Lymphocyte (Absolute #) 0.42 x10^3/uL (1.0-4.6); Lymphocytes % 9.5 % (24.0-44.0); Mean Cell Volume 89.8 fL (78-100); Mean Corpuscular Hemoglobin 27.9 pg (26-32); Mean Corpuscular Hgb Concent. 31.1 g/dL (32-36); Mean Platelet Volume 9.7 fL (7.5-11.0); Monocyte (Absolute #) 0.58 x10^3/uL (0.0-1.3); Monocytes % 13.2 % (0.0-12.0); Neutrophil % 74.7 % (36.0-66.0); Platelet Count 203 x10^3/uL (150-450); Red Blood Count 3.62 x10^6/uL (4.1-5.6); Red Cell Distribution Width 15.3 % (11.5-14.0); White Blood Count 4.4 x10^3/uL (4.0-10.5)
[2021-10-17 11:35] LABS: Appearance CLEAR (CLEAR); Bilirubin NEGATIVE (NEGATIVE); Dipstick done @ ? MAIN LAB; Glucose 500 mg/dL (NEGATIVE); Ketones NEGATIVE (NEGATIVE); Nitrite NEGATIVE (NEGATIVE); Ph 6.5 (5-6); Protein,Urine Dip TRACE (Negative); RBC TRACE-INTACT Ery/ul (0-5); Specific Gravity 1.015 (1.005-1.025); Urobilinogen 0.2 mg/dL (0-1)
[2021-10-17 11:38] LABS: Bacteria RARE /HPF (NEGATIVE)
[2021-10-17 11:39] LABS: Urine Cultured Indicated? YES
[2021-10-17 11:49] LABS: ALBUMIN 3.4 g/dL (3.5-5.0); ANION GAP 9.1 MEQ/L (5-15); BILIRUBIN,TOTAL 0.4 mg/dL (0.2-1.3); Calcium 8.5 mg/dL (8.4-10.2); Creatinine 1 2.2 mg/dL (0.66-1.25); EST GLOMERULAR FILTRATION RATE 30.5 ML/MIN; Potassium 3.7 mmol/L (3.5-5.1); Total Protein 7.1 g/dL (6.3-8.2)
[2021-10-17 11:54] LABS: Amphetamine,Urine NEGATIVE (NEGATIVE); Barbiturate,Urine NEGATIVE (NEGATIVE); Benzodiazepine,Urine NEGATIVE (NEGATIVE); Cocaine,Urine NEGATIVE (NEGATIVE); Methadone,Urine NEGATIVE (NEGATIVE); Opiate,Urine NEGATIVE (NEGATIVE); PCP,Urine NEGATIVE (NEGATIVE); THC,Urine NEGATIVE (NEGATIVE)
--- NOTE | 2021-10-17 12:27 | XRAY ---
Indication: Syncope. Multiple contiguous axial images obtained through the head without contrast. Comparison: May 24, 2020 Again age-appropriate global atrophy, mild periventricular degenerative micro-ischemia bilaterally, and small old infarct left cerebellum. No acute intracranial hemorrhage, abnormal extra-axial fluid collection, or mass effect. Fourth ventricle is midline without hydrocephalus. Bony calvarium intact. Paranasal sinuses and mastoid air cells are clear. 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
[2021-10-17 12:40] VITALS: BP 151/53
== END 2021-10-17 12:51 | disposition home or self-care (01) ==
LOC: ED 10:55
DX: E11.649 Type 2 diabetes mellitus with hypoglycemia without coma (principal); I12.9 Hypertensive chronic kidney disease with stage 1 through stage 4 chronic kidney disease, or unspecified chronic kidney disease; E11.22 Type 2 diabetes mellitus with diabetic chronic kidney disease; E78.5 Hyperlipidemia, unspecified; N18.9 Chronic kidney disease, unspecified; Z79.4 Long term (current) use of insulin; Z79.01 Long term (current) use of anticoagulants; Z79.899 Other long term (current) drug therapy
CPT/HCPCS: 36000; 36415; 70450; 80053; 80307; 81015; 82947; 84484; 85025; 87086; 93005; 94760; 99284; G0480

== ENCOUNTER 2022-12-09 12:32 | Emergency (ER) | payer MEDICARE, OTHER ==
--- NOTE | 2022-12-09 12:33 | ERPHSYRPT ---
- History of Present Illness Time Seen by Provider: 12/09/22 12:33 Source: patient, family (Since daughter provided independent) Exam Limitations: no limitations (, additional medical history) Physician History: This is an 86-year-old white male patient who was brought to the emergency department by his daughter who provided additional, independent history from an assisted living facility. His primary care doctor is Dr. Machuca. Patient tested positive for COVID-19 infection earlier this morning. He has not been feeling well for the last 2 days. Patient has a history of stage III kidney disease and is followed by head worker Dr. Alvarado. Patient is an insulin- dependent diabetic on Xarelto. Patient denies shortness of breath and he denies chest pain. His vital signs on arrival to the emergency department include a respiratory rate of between 16 and 18 respirations per minute. His room air oxygen saturation levels are running between 95 and 97%. His heart rate is in the 70s and his temperature is 99.2 F. Patient's blood pressure is 130/59. He does not appear to be in any distress at this time. Timing/Duration: yesterday, improved Fever Severity: mild Fever Therapy MANAGER SPECIALTY: Acetaminophen Associated Symptoms: denies symptoms, cough, No abdominal pain, No chest pain, No confusion, No headache, No nausea/vomiting (Mild), No shortness of breath, No weakness Allergies/Adverse Reactions: sulfamethoxazole [From Bactrim] Allergy (Intermediate, Verified 12/09/22 13:21) Swelling trimethoprim [From Bactrim] Allergy (Intermediate, Verified 12/09/22 13:21) Swelling Sulfa (Sulfonamide Antibiotics) Adverse Reaction (Intermediate, Verified 12/09/22 13:21) Swelling Home Medications: Citalopram Hydrobromide [Celexa] 20 mg PO DAILY 02/22/19 [History] Ferrous Sulfate [Iron] 325 mg PO DAILY 02/22/19 [History] Insulin Aspart [Novolog] 0 unit SQ TIDWMEALS 02/22/19 [History] Insulin Glargine [Lantus Insulin] 5 unit SQ DAILY 02/22/19 [History] Aspirin EC 81 mg [Ecotrin 81 mg] 81 mg PO DAILY 10/17/21 [History] Dapagliflozin Propanediol [Farxiga] 10 mg PO DAILY 10/17/21 [History] Rivaroxaban [Xarelto] 2.5 mg PO BID 10/17/21 [History] Torsemide 100 mg PO TID 10/17/21 [History] Lactobacillus Acidophilus [Acidophilus TABLET] 1 tab PO BID 09/30/22 [History] Levothyroxine Sodium [Synthroid] 25 mcg PO DAILY 09/30/22 [History] Midodrine HCl 15 mg PO TID 09/30/22 [History] Potassium Chloride 20 meq PO DAILY 09/30/22 [History] Aspirin EC 81 mg [Ecotrin 81 mg] 1 tab PO DAILY 12/09/22 [History] Tamsulosin HCl 0.4 mg [Flomax 0.4 MG] 1 cap PO DAILY 12/09/22 [History] Hx Tetanus, Diphtheria Vaccination/Date Given: No Hx Influenza Vaccination/Date Given: No Hx Pneumococcal Vaccination/Date Given: No Travel Risk - International Travel Have you traveled outside of the country in past 3 weeks: No - Coronavirus Screening Are you exhibiting any of the following symptoms?: Yes Symptoms: Fever, Cough: New Onset Close contact with a COVID-19 positive Pt in past 14-21 Days: No - Vaccine Status Have you recieved a Covid-19 vaccination: Yes 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: [employer] - Vaccination Dates Date of 2cond Vaccination (if applicable): unknown - Review of Systems Constitutional: Fever Eyes: No Symptoms Ears, Nose, & Throat: No Symptoms Respiratory: No Symptoms Cardiac: No Symptoms Abdominal/Gastrointestinal: No Symptoms Genitourinary Symptoms: No Symptoms Musculoskeletal: No Symptoms Skin: No Symptoms Neurological: No Symptoms Psychological: No Symptoms Endocrine: No Symptoms Hematologic/Lymphatic: No Symptoms Immunological/Allergic: No Symptoms All Other Systems: Reviewed and Negative - Past Medical History Pertinent Past Medical History: Yes Neurological History: Stroke ENT History: No Pertinent History Cardiac History: Congestive Heart Failure, High Cholesterol, Hypertension, Myocardial Infarction ([place]) Respiratory History: No Pertinent History Endocrine Medical History: Diabetes Type II Musculoskeletal History: Arthritis GI Medical History: No Pertinent History History: Renal Disease Psycho-Social History: No Pertinent History Male Reproductive Disorders: No Pertinent History 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%", fall injuring jordon hands - Past Surgical History Past Surgical History: Yes Neuro Surgical History: No Pertinent History Cardiac: No Pertinent History Respiratory: No Pertinent History Gastrointestinal: No Pertinent History Genitourinary: No Pertinent History Musculoskeletal: No Pertinent History, Orthopedic Surgery Male Surgical History: No Pertinent History Other Surgical History: Callus removed from ball of right foot; 2ND DIGIT RIGHT FOOT REMOVED, transmetatarsal right amputation - Social History Smoking Status: Never smoker Exposure to second hand smoke: No Drug Use: none Patient Lives Alone: Yes - Nursing Vital Signs Nursing Vital Signs: Initial Vital Signs Temperature 99.2 F 12/09/22 12:32 Pulse Rate 72 12/09/22 12:32 Respiratory Rate 20 12/09/22 12:32 Blood Pressure 130/59 12/09/22 12:32 O2 Sat by Pulse Oximetry 95 12/09/22 12:32 Pain Scale Pain Intensity 0 - Physical Exam General Appearance: no apparent distress, alert, thin Eye Exam: PERRL/EOMI, eyes nml inspection ENT Exam: normal ENT inspection, no apparent trauma, hearing grossly normal Neck Exam: normal inspection, non-tender, supple, full range of motion, trachea midline Respiratory Exam: normal breath sounds, lungs clear, no respiratory distress, no accessory muscle use, No chest non-tender, No rhonchi, No stridor, No wheezing Cardiovascular/Chest Exam: normal heart sounds, regular rate/rhythm Gastrointestinal/Abdominal Exam: soft, non tender, no distention, no mass, no guarding, no ecchymosis, no organomegaly, no pulsatile mass, normal bowel sounds Rectal Exam: not done Extremity Exam: non-tender, normal range of motion, normal inspection, normal capillary refill, no calf tenderness, no pedal edema, pelvis stable Neurologic Exam: alert, oriented x 3, cooperative, edge plugger II-XII nml as tested, normal mood/affect Skin Exam: normal color, warm, dry Lymphatic: No adenopathy SpO2 Interpretation: normal O2 Delivery: Room Air - Course Nursing assessment & vital signs reviewed: Yes EKG Interpreted by Me: RATE (70), Sinus Rhythm, NORMAL AXIS, NORMAL INTERVALS, NORMAL QRS, NORMAL ST-T, Other (No acute ischemic changes on today's twelve-lead EKG) Ordered Tests: Active Orders 24 hr Category Date Time Status 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 Operator STAT Care 12/09/22 13:46 Active EKG-ER Only STAT Care 12/09/22 13:46 Active IV Insertion STAT Care 12/09/22 13:46 Active Pulse Oximetry (ED) STAT Care 12/09/22 13:46 Active CHEST 1 VIEW (PORTABLE) Stat Exams 12/09/22 13:46 Completed BLOOD CULTURE Stat Lab 12/09/22 13:46 Received CBC W DIFF Stat Lab 12/09/22 13:46 Completed CMP Stat Lab 12/09/22 13:46 Completed CULTURE,URINE Stat Lab 12/09/22 13:50 Received Lactic Acid Stat Lab 12/09/22 13:50 Completed MONO SCREEN Stat Lab 12/09/22 13:46 Completed UA W/RFX UR CULTURE Stat Lab 12/09/22 13:50 Completed Lab/Rad Data: Laboratory Result Diagrams 12/09/22 13:46 12/09/22 13:46 Laboratory Results 12/09/22 12/09/22 12/09/22 Range/Units 13:50 13:50 13:46 WBC (4.0-10.5) x10^3/uL RBC (4.1-5.6) x10^6/uL Hgb (12.5-18.0) g/dL Hct (42-50) % MCV (78-100) fL MCH (26-32) pg MCHC (32-36) g/dL RDW (11.5-14.0) % Plt Count (150-450) x10^3/uL MPV (7.5-11.0) fL Gran % (36.0-66.0) % Immature Gran % (Auto) (0.00-0.4) % Nucleat RBC Rel Count (0.00-0.1) % Eos # (Auto) (0-0.5) x10^3/uL Immature Gran # (Auto) (0.00-0.03) x10^3u/L Absolute Lymphs (auto) (1.0-4.6) x10^3/uL Absolute Monos (auto) (0.0-1.3) x10^3/uL Absolute Nucleated RBC (0.00-0.01) x10^3u/L Lymphocytes % (24.0-44.0) % Monocytes % (0.0-12.0) % Eosinophils % (0.00-5.0) % Basophils % (0.0-0.4) % Absolute Granulocytes (1.4-6.9) x10^3/uL Basophils # (0-0.4) x10^3/uL Sodium (137-145) mmol/L Potassium (3.5-5.1) mmol/L Chloride (98-107) mmol/L Carbon Dioxide (22-30) mmol/L Anion Gap (5-15) MEQ/L BUN (9-20) mg/dL Creatinine (0.66-1.25) mg/dL Estimated GFR ML/MIN Glucose (74-106) mg/dL Lactic Acid 2.0 (0.4-2.0) Calcium (8.4-10.2) mg/dL Total Bilirubin (0.2-1.3) mg/dL AST (17-59) U/L ALT (0-50) U/L Alkaline Phosphatase (38-126) U/L Serum Total Protein (6.3-8.2) g/dL Albumin (3.5-5.0) g/dL Urine Color Yellow (Yellow) Urine Appearance Clear (Clear) Urine pH 6.5 (4.6-8.0) Ur Specific [place] 1.015 (1.005-1.030) Urine Protein 30 (Negative) Urine Glucose (UA) >=1000 A (Negative) mg/dL Urine Ketones Negative (Negative) Urine Blood Small A (Negative) Urine Nitrite Negative (Negative) Urine Bilirubin Negative (Negative) Urine Urobilinogen 0.2 (0.2) mg/dL Ur Leukocyte Esterase Negative (Negative) U Hyaline Cast (Auto) NONE SEEN (0-2) /LPF Urine Microscopic RBC 11-20 A (0-5) /HPF Urine Microscopic WBC 0-2 (0-5) /HPF Ur Epithelial Cells None Seen (None Seen) /HPF Urine Bacteria None Seen (None Seen) /HPF Urine Culture Reflexed YES (NO) Monoscreen NEGATIVE (NEGATIVE) Group A Strep Antibody (NEGATIVE) Slides for Path Review 12/09/22 12/09/22 12/09/22 Range/Units 13:46 13:46 13:46 WBC 6.8 (4.0-10.5) x10^3/uL RBC 3.81 L (4.1-5.6) x10^6/uL Hgb 11.2 L (12.5-18.0) g/dL Hct 35.2 L (42-50) % MCV 92.4 (78-100) fL MCH 29.4 (26-32) pg MCHC 31.8 L (32-36) g/dL RDW 14.7 H (11.5-14.0) % Plt Count 133 L (150-450) x10^3/uL MPV 10.1 (7.5-11.0) fL Gran % 81.9 H (36.0-66.0) % Immature Gran % (Auto) 0.6 H (0.00-0.4) % Nucleat RBC Rel Count 0.0 (0.00-0.1) % Eos # (Auto) 0 (0-0.5) x10^3/uL Immature Gran # (Auto) 0.04 H (0.00-0.03) x10^3u/L Absolute Lymphs (auto) 0.59 L (1.0-4.6) x10^3/uL Absolute Monos (auto) 0.59 (0.0-1.3) x10^3/uL Absolute Nucleated RBC 0.00 (0.00-0.01) x10^3u/L Lymphocytes % 8.7 L (24.0-44.0) % Monocytes % 8.7 (0.0-12.0) % Eosinophils % 0.0 (0.00-5.0) % Basophils % 0.1 (0.0-0.4) % Absolute Granulocytes 5.53 (1.4-6.9) x10^3/uL Basophils # 0.01 (0-0.4) x10^3/uL Sodium 134 L (137-145) mmol/L Potassium 3.8 (3.5-5.1) mmol/L Chloride 93 L (98-107) mmol/L Carbon Dioxide 31 H (22-30) mmol/L Anion Gap 13.3 (5-15) MEQ/L BUN 39 H (9-20) mg/dL Creatinine 2.15 H (0.66-1.25) mg/dL Estimated GFR 31.2 ML/MIN Glucose 180 H (74-106) mg/dL Lactic Acid (0.4-2.0) Calcium 8.1 L (8.4-10.2) mg/dL Total Bilirubin 0.40 (0.2-1.3) mg/dL AST 27 (17-59) U/L ALT 15 (0-50) U/L Alkaline Phosphatase 70 (38-126) U/L Serum Total Protein 7.2 (6.3-8.2) g/dL Albumin 3.8 (3.5-5.0) g/dL Urine Color (Yellow) Urine Appearance (Clear) Urine pH (4.6-8.0) Ur Specific [place] (1.005-1.030) Urine Protein (Negative) Urine Glucose (UA) (Negative) mg/dL Urine Ketones (Negative) Urine Blood (Negative) Urine Nitrite (Negative) Urine Bilirubin (Negative) Urine Urobilinogen (0.2) mg/dL Ur Leukocyte Esterase (Negative) U Hyaline Cast (Auto) (0-2) /LPF Urine Microscopic RBC (0-5) /HPF Urine Microscopic WBC (0-5) /HPF Ur Epithelial Cells (None Seen) /HPF Urine Bacteria (None Seen) /HPF Urine Culture Reflexed (NO) Monoscreen (NEGATIVE) Group A Strep Antibody NOT DETECTED (NEGATIVE) Slides for Path Review YES - Progress Progress: improved, re-examined Progress Note: 12/09/22 14:59 This patient's medical issue is 1 of moderate complexity. Level complexity in the work-up performed is based on review of the patient's past medical history, review of the patient's medication list, review of the patient's drug allergy li st, history of present illness and physical findings on examination. This patient is undergoing a fever work-up which includes the group A strep, mono, placement of intravenous line, chest x-ray, urinalysis, CBC, CMP and lactic acid level. The chest x-ray was interpreted by the radiologist and I reviewed the impression. There is a new left mid to lower lung infiltrate present. There is trace pleural effusion present on the left side as well. I reviewed and interpreted laboratory data work-up. This patient's fever is likely secondary to this new infiltrate this present in the left lung as well as COVID-19 infection. At the daughter's request, I am contacting his head worker to make sure that the medication we are placing him on is an appropriate 1 for his stage III kidney disease. 12/09/22 15:17 [address] did speak with Dr[address] Alvarado, the patient's head worker regarding treatment of this left-sided infiltrate that is present. He stated that Rocephin and cefdinir are flying to provide the patient with his renal disease Counseled pt/family regarding: lab results, diagnosis, need for follow-up, rad results Medical Desision Making - Independent Historian Additional History obtained from: Child - Discussion of managment Care discussed with:: specialist (Patient's head worker) Reviewed:: Test results - Diagnostic Testing Diagnostic test were ordered, analyzed, and reviewed by me: Yes Radiological Interpretation: Reviewed by me, Teleradiologist Report - Risk of complications The pt has a mod risk of morbidity or mortality based on: Need for prescription drug management - Departure Departure Disposition: Home Clinical Impression: Fever, Infiltrate of lung present on chest x-ray, COVID-19 virus infection Condition: Stable Critical Care Time: No Referrals: ZAN MACHUCA [Primary Care Provider] - Follow up/PCP as directed Additional Instructions: Take your medication as prescribed. Drink plenty of clear liquids. Follow-up with primary care provider and head worker by phone today to make arranges for follow-up appointment for further evaluation management. Prescriptions: Cefdinir 300 mg PO BID #14 cap
[2022-12-09 13:35] VITALS: TEMP 99.2
[2022-12-09 13:52] LABS: Absolute Neutrophil Ct (ANC) 5.53 x10^3/uL (1.4-6.9); BASOPHIL % 0.1 % (0.0-0.4); Basophil (Absolute #) 0.01 x10^3/uL (0-0.4); Eosinophil (Absolute #) 0 x10^3/uL (0-0.5); Hematocrit 35.2 % (42-50); Hemoglobin 11.2 g/dL (12.5-18.0); IMMATURE GRAN # 0.04 x10^3u/L (0.00-0.03); IMMATURE GRAN % 0.6 % (0.00-0.4); Lymphocyte (Absolute #) 0.59 x10^3/uL (1.0-4.6); Lymphocytes % 8.7 % (24.0-44.0); Mean Cell Volume 92.4 fL (78-100); Mean Corpuscular Hemoglobin 29.4 pg (26-32); Mean Corpuscular Hgb Concent. 31.8 g/dL (32-36); Mean Platelet Volume 10.1 fL (7.5-11.0); Monocyte (Absolute #) 0.59 x10^3/uL (0.0-1.3); Monocytes % 8.7 % (0.0-12.0); Neutrophil % 81.9 % (36.0-66.0); Platelet Count 133 x10^3/uL (150-450); Red Blood Count 3.81 x10^6/uL (4.1-5.6); Red Cell Distribution Width 14.7 % (11.5-14.0); White Blood Count 6.8 x10^3/uL (4.0-10.5)
[2022-12-09 13:59] LABS: Appearance Clear (Clear); Bacteria None Seen /HPF (None Seen); Bilirubin Negative (Negative); Blood Small (Negative); Epithelial Cells None Seen /HPF (None Seen); Glucose, Urine >=1000 mg/dL (Negative); Hyaline Casts NONE SEEN /LPF (0-2); Ketones Negative (Negative); Leukocyte Esterase Negative (Negative); Nitrite Negative (Negative); Ph 6.5 (4.6-8.0); Protein,Urine Dip 30 (Negative); Specific Gravity 1.015 (1.005-1.030); Urobilinogen 0.2 mg/dL (0.2); WBC 0-2 /HPF (0-5)
[2022-12-09 14:03] LABS: ADD URINE CULTURE? YES (NO)
[2022-12-09 14:09] LABS: ALBUMIN 3.8 g/dL (3.5-5.0); ANION GAP 13.3 MEQ/L (5-15); BILIRUBIN,TOTAL 0.4 mg/dL (0.2-1.3); Calcium 8.1 mg/dL (8.4-10.2); Creatinine 1 2.15 mg/dL (0.66-1.25); EST GLOMERULAR FILTRATION RATE 31.2 ML/MIN; Potassium 3.8 mmol/L (3.5-5.1); Total Protein 7.2 g/dL (6.3-8.2)
--- NOTE | 2022-12-09 14:39 | XRAY ---
Indication: Fever and cough. Comparison: May 29, 2020. Portable chest demonstrates new left mid to lower lung infiltrate with tiny effusion. Right lung is now clear again with a few tiny calcified granulomas. Heart not enlarged. Bony thorax intact.
[2022-12-09 14:51] LABS: Slide Review 1 YES
[2022-12-09] MEDS ORDERED: ROCEPHIN 1 Gm-D5w 50 ml Bag** 1 G/50 ML IVPB IV STA (15:21)
[2022-12-09] MEDS ORDERED: ROCEPHIN 1 Gm-D5w 50 ml Bag** 1 G/50 ML IVPB IV ONE (16:04)
[2022-12-09 16:12] VITALS: PULSE 71; RESP 18; O2SAT 97
[2022-12-09 17:02] VITALS: BP 163/73
== END 2022-12-09 17:00 | disposition home or self-care (01) ==
LOC: ED 12:32
DX: U07.1 COVID-19 (principal); R50.9 Fever, unspecified; R91.8 Other nonspecific abnormal finding of lung field; E11.22 Type 2 diabetes mellitus with diabetic chronic kidney disease; I13.0 Hypertensive heart and chronic kidney disease with heart failure and stage 1 through stage 4 chronic kidney disease, or unspecified chronic kidney disease; I50.9 Heart failure, unspecified; N18.30 Chronic kidney disease, stage 3 unspecified; E78.5 Hyperlipidemia, unspecified; Z79.01 Long term (current) use of anticoagulants; Z79.4 Long term (current) use of insulin; Z79.84 Long term (current) use of oral hypoglycemic drugs; Z79.899 Other long term (current) drug therapy
CPT/HCPCS: 36000; 36415; 71045; 80053; 81001; 83605; 85025; 86308; 87040; 87086; 87651; 93005; 93041; 94760; 99284; J0696

== ENCOUNTER 2023-01-12 07:22 | Day surgery (SDC) | payer MEDICARE, OTHER ==
[~2023-01-12 07:22] MED LIST: Ak-Dilate OPHTHALMIC*** 1.065 ML, Cyclogyl 1% OPHTH SOL 1.065 ML, GATIFLOXACIN 0.5% OPH... OP ONE; BETADINE 5% OPHTHALMIC 30 ML OP ONE; Lactated Ringers 1,000 ML IV ONE; Lactated Ringers 1,000 ML IV SCH; NON-FORMULARY ITEM OP ONE; TETRACAINE 0.5% STERI-UNIT SOL OP ONE; cefUROXime sodium 0.005 GM in Sodium Chloride Flush 30 ML*** 0.5 ML IJ ONE
[2023-01-12] MEDS ORDERED: Epinephrine Preservative Free 1 MG/ML IJ ONE (07:23)
[2023-01-12 07:48] VITALS: RESP 16; TEMP 97.9
[2023-01-12] MEDS ORDERED: Zofran 4 MG/2 ML VIAL IV PRN (09:00)
[2023-01-12] MEDS ORDERED: DIPRIVAN 200 MG/20 ML IV ONE (09:25)
[2023-01-12 10:04] VITALS: PULSE 74
[2023-01-12 10:12] VITALS: BP 119/58; O2SAT 100
== END 2023-01-12 10:12 | disposition home or self-care (01) ==
LOC: SDC 07:22
PROVIDERS: ATTEND Ophthalmology
DX: H25.811 Combined forms of age-related cataract, right eye (principal); E11.9 Type 2 diabetes mellitus without complications
CPT/HCPCS: 66982; 82947; C1780; J0171; J2704; A9270-GY

== ENCOUNTER 2023-02-11 06:03 | Day surgery (SDC) | payer MEDICARE, OTHER ==
[~2023-02-11 06:03] MED LIST changes: -Lactated Ringers 1,000 ML IV ONE
[2023-02-11] MEDS ORDERED: Lactated Ringers 1,000 ML IV ONE (06:09)
[2023-02-11 06:50] LABS: ANION GAP 15.1 MEQ/L (5-15); Calcium 9.4 mg/dL (8.4-10.2); Creatinine 1 2.69 mg/dL (0.66-1.25); EST GLOMERULAR FILTRATION RATE 22.4 ML/MIN
[2023-02-11 06:53] LABS: Potassium 2.7 mmol/L (3.5-5.1)
[2023-02-11] MEDS ORDERED: K-LYTE PO ONE (07:30)
[2023-02-11] MEDS ORDERED: Zofran 4 MG/2 ML VIAL IV PRN (09:00)
[2023-02-11 10:40] LABS: MAGNESIUM 2.8 mg/dL (1.6-2.3); PHOSPHOROUS 6.8 mg/dL (2.5-4.5)
[2023-02-11] MEDS ORDERED: Sodium Chloride 0.9% 500 ML 500 ML IV SCH (10:55)
[2023-02-11] MEDS ORDERED: Sodium Chloride 0.9% 500 ML 500 ML IV ONE (11:00)
[2023-02-11] MEDS ORDERED: Klor Con PO SCH (11:15)
[2023-02-11] MEDS ORDERED: K-LYTE PO SCH (11:15)
[2023-02-11] MEDS ORDERED: Xylocaine-Mpf 2% 5 Ml Vial ONE (11:22)
[2023-02-11] MEDS ORDERED: DIPRIVAN 200 MG/20 ML IV ONE (11:22)
[2023-02-11 12:09] VITALS: RESP 16
[2023-02-11 12:22] VITALS: BP 98/54; PULSE 73; TEMP 97.5; O2SAT 97
[2023-02-11] MEDS ORDERED: Epinephrine Preservative Free 1 MG/ML INTRAOP ONE (14:00)
== END 2023-02-11 12:31 | disposition home or self-care (01) ==
LOC: SDC 06:03
PROVIDERS: ATTEND Ophthalmology
DX: H25.812 Combined forms of age-related cataract, left eye (principal); I25.10 Atherosclerotic heart disease of native coronary artery without angina pectoris; E11.9 Type 2 diabetes mellitus without complications; D64.9 Anemia, unspecified; Z79.899 Other long term (current) drug therapy
CPT/HCPCS: 36415; 80048; 82947; 83735; 84100; 84132; 93005; 99100; C1780; J0171; J2704; A9270-GY

== ENCOUNTER 2023-07-15 10:05 | Inpatient (IN) | payer MEDICARE, OTHER ==
[2023-07-15 11:25] LABS: Absolute Neutrophil Ct (ANC) 11.21 x10^3/uL (1.4-6.9); BASOPHIL % 0.2 % (0.0-0.4); Basophil (Absolute #) 0.03 x10^3/uL (0-0.4); Eosinophil % 1.6 % (0.00-5.0); Hematocrit 32.7 % (42-50); Hemoglobin 10.1 g/dL (12.5-18.0); IMMATURE GRAN # 0.09 x10^3u/L (0.00-0.03); IMMATURE GRAN % 0.7 % (0.00-0.4); Lymphocyte (Absolute #) 0.23 x10^3/uL (1.0-4.6); Lymphocytes % 1.9 % (24.0-44.0); Mean Cell Volume 90.8 fL (78-100); Mean Corpuscular Hemoglobin 28.1 pg (26-32); Mean Corpuscular Hgb Concent. 30.9 g/dL (32-36); Mean Platelet Volume 10.4 fL (7.5-11.0); Monocyte (Absolute #) 0.66 x10^3/uL (0.0-1.3); Monocytes % 5.3 % (0.0-12.0); Neutrophil % 90.3 % (36.0-66.0); Platelet Count 161 x10^3/uL (150-450); Red Cell Distribution Width 15.7 % (11.5-14.0); White Blood Count 12.4 x10^3/uL (4.0-10.5)
[2023-07-15 11:38] LABS: ALBUMIN 3.5 g/dL (3.5-5.0); ANION GAP 14.9 MEQ/L (5-15); BILIRUBIN,TOTAL 0.8 mg/dL (0.2-1.3); Calcium 8.7 mg/dL (8.4-10.2); Creatinine 1 2.67 mg/dL (0.66-1.25); EST GLOMERULAR FILTRATION RATE 22.6 ML/MIN; Potassium 4.2 mmol/L (3.5-5.1); Total Protein 6.9 g/dL (6.3-8.2)
--- NOTE | 2023-07-15 11:40 | XRAY ---
Indication: Fever. Comparison: December 09, 2022 Portable chest less inflated accentuating cardiopulmonary structures. Slight worsening mild left base infiltrate/atelectasis/effusion. Heart borderline enlarged with new right arm PICC line. Bony thorax intact again with osteopenia and degenerative changes.
[2023-07-15] MEDS: DAPTOmycin 500 MG in Sodium Chloride Flush 30 ML*** 10 ML IV ONE (12:17)
[2023-07-15 12:24] LABS: INFLUENZA A NEGATIVE (NEGATIVE); INFLUENZA B NEGATIVE (NEGATIVE); RESPIRATORY SYNCTIAL VIRUS NEGATIVE (NEGATIVE); SARS-CoV-2 Xpert Express NEGATIVE (NEGATIVE)
[2023-07-15 12:25] LABS: Appearance Clear (Clear); Bacteria None Seen /HPF (None Seen); Bilirubin Negative (Negative); Blood NHT (Negative); Epithelial Cells None Seen /HPF (None Seen); Glucose, Urine >=1000 mg/dL (Negative); Ketones Negative (Negative); Leukocyte Esterase Negative (Negative); Nitrite Negative (Negative); Protein,Urine Dip 30 (Negative); Urobilinogen 0.2 mg/dL (0.2); WBC 0-2 /HPF (0-5)
[2023-07-15] MEDS ORDERED: Zofran 4 MG/2 ML VIAL ONE (12:25)
[2023-07-15] MEDS: Zofran 4 MG/2 ML VIAL IV ONE (12:26)
[2023-07-15 12:27] LABS: ADD URINE CULTURE? NO (NO)
--- NOTE | 2023-07-15 12:33 | ERPHSYRPT ---
- History of Present Illness Time Seen by Provider: 07/15/23 10:52 Source: patient Exam Limitations: no limitations Patient Subjective Stated Complaint: pt here for fever for a couple days, nausea yesterday. pt has infection to left lower leg and is being treated by dr nobles, he has a pic line and had 2 doses of iv antiboitcs, pt seen dr nobles yesterday and had culture to left leg done and leg redressed. Triage Nursing Assessment: pt alert, able to get from wc to bed with assist of one, alert, confused at times with events, has home rn transitional care with him. resp easy, skin w/d/p. picc line to right arm. 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 oNbles podiatry and Dr. Shankar ID is here with fever since yesterday with a Tmax of 102 earlier this morning, afebrile currently after taking Tylenol. Patient saw Dr. Nobles yesterday and has been redressed in the lower extremity wounds. Patient denies any pain, has baseline difficulty breathing which is not any worse than usual and does use oxygen at nighttime as needed. Denies any abdominal pain but did have some nausea but no vomiting. No known sick contact. Allergies/Adverse Reactions: sulfamethoxazole [From Bactrim] Allergy (Intermediate, Verified 07/15/23 10:27) Swelling trimethoprim [From Bactrim] Allergy (Intermediate, Verified 07/15/23 10:27) Swelling Sulfa (Sulfonamide Antibiotics) Adverse Reaction (Intermediate, Verified 10:27) Swelling Home Medications: Citalopram Hydrobromide [Celexa] 20 mg PO DAILY 02/22/19 [History] Ferrous Sulfate [Iron] 325 mg PO DAILY 02/22/19 [History] Insulin Aspart [Novolog] 0 unit SQ TIDWMEALS 02/22/19 [History] Insulin Glargine [Lantus Insulin] 5 unit SQ DAILY 02/22/19 [History] Rivaroxaban [Xarelto] 2.5 mg PO BID 10/17/21 [History] Torsemide 100 mg PO TID 10/17/21 [History] Lactobacillus Acidophilus [Acidophilus TABLET] 1 tab PO BID 09/30/22 [History] Levothyroxine Sodium [Synthroid] 25 mcg PO DAILY 09/30/22 [History] Midodrine HCl 15 mg PO TID 09/30/22 [History] Potassium Chloride 20 meq PO DAILY 09/30/22 [History] Aspirin EC 81 mg [Ecotrin 81 mg] 1 tab PO DAILY 12/09/22 [History] Tamsulosin HCl 0.4 mg [Flomax 0.4 MG] 1 cap PO DAILY 12/09/22 [History] Diphenoxylate HCl/Atropine [Lomotil] 1 tab PO UD PRN 01/05/23 [History] Ondansetron ODT 4 MG [Zofran Odt 4 mg] 4 mg PO Q6HPRN PRN 01/05/23 [History] Hx Tetanus, Diphtheria Vaccination/Date Given: No Hx Influenza Vaccination/Date Given: No Hx Pneumococcal Vaccination/Date Given: Yes Immunizations Up to Date: Yes Travel Risk - International Travel Have you traveled outside of the country in past 3 weeks: No - Emerging Infectious Disease Are you exhibiting symptoms associated with any current EIDs: Yes Symptoms: Fever - Review of Systems Constitutional: Fever, Chills, Fatigue, Weakness Eyes: No Symptoms Ears, Nose, & Throat: No Symptoms Respiratory: No Symptoms Cardiac: No Symptoms Abdominal/Gastrointestinal: Nausea Genitourinary Symptoms: No Symptoms Musculoskeletal: Deformity, Injury Skin: Cellulitis Neurological: No Symptoms Hematologic/Lymphatic: No Symptoms Immunological/Allergic: No Symptoms - Past Medical History Pertinent Past Medical History: Yes Neurological History: Stroke ENT History: No Pertinent History Cardiac History: Congestive Heart Failure, High Cholesterol, Hypertension, Myocardial Infarction ([place]) Respiratory History: No Pertinent History Endocrine Medical History: Diabetes Type II Musculoskeletal History: Arthritis GI Medical History: No Pertinent History History: Renal Disease Psycho-Social History: No Pertinent History Male Reproductive Disorders: No Pertinent History 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%", fall injuring jordon hands - Past Surgical History Past Surgical History: Yes Neuro Surgical History: No Pertinent History Cardiac: Cardiac Catheterization, Other Respiratory: No Pertinent History Gastrointestinal: No Pertinent History Genitourinary: No Pertinent History Musculoskeletal: No Pertinent History, Orthopedic Surgery Male Surgical History: No Pertinent History Other Surgical History: Callus removed from ball of right foot; 2ND DIGIT RIGHT FOOT REMOVED, transmetatarsal right amputation, BLE stents - Social History Smoking Status: Never smoker Exposure to second hand smoke: No Drug Use: none Patient Lives Alone: Yes - Nursing Vital Signs Nursing Vital Signs: Initial Vital Signs Temperature 98.9 F 07/15/23 10:26 Pulse Rate 81 07/15/23 10:26 Respiratory Rate 20 07/15/23 10:26 Blood Pressure 117/67 07/15/23 10:26 O2 Sat by Pulse Oximetry 92 L 07/15/23 10:26 Pain Scale Pain Intensity 3 - Physical Exam General Appearance: no apparent distress, alert Eye Exam: PERRL/EOMI ENT Exam: normal ENT inspection Neck Exam: normal inspection, full range of motion Respiratory Exam: decreased air movement Cardiovascular/Chest Exam: normal heart sounds, regular rate/rhythm Gastrointestinal/Abdominal Exam: soft, non tender, no distention Extremity Exam: swelling (Both feet wrapped along with lower leg.) Neurologic Exam: alert, oriented x 3, cooperative Skin Exam: normal color SpO2 Interpretation: O2 applied SpO2: 97 O2 Delivery: Nasal Cannula Ordered Tests: Active Orders 24 hr Category Date Time Status IV Insertion STAT Care 07/15/23 10:32 Active POCT Glucose Check STAT Care 07/15/23 10:31 Active CHEST 1 VIEW (PORTABLE) Stat Exams 07/15/23 10:53 Completed BLOOD CULTURE Stat Lab 07/15/23 10:25 Received CBC W DIFF Stat Lab 07/15/23 10:52 Completed CMP Stat Lab 07/15/23 10:25 Completed LIPASE Stat Lab 07/15/23 10:25 Completed Lactic Acid Stat Lab 07/15/23 10:52 Completed POCT GLUCOSE Stat Lab 07/15/23 10:27 Completed UA W/RFX UR CULTURE Stat Lab 07/15/23 12:13 Completed Respiratory Therapy Assessment DAILY RT 07/15/23 12:55 Active Transfer Order Routine Transfer 07/15/23 Ordered Medication Summary Discontinued Medications Generic Name Dose Route Start Last Admin Trade Name Freq PRN Reason Stop Dose Admin Albuterol/Ipratropium 3 ml 07/15/23 12:34 07/15/23 12:55 Ipratropium/Albuterol Sulfate 3 Ml Ampul.Neb IH 07/15/23 12:35 3 ml STAT ONE Administration Albuterol/Ipratropium Confirm 07/15/23 12:43 Ipratropium/Albuterol Sulfate 3 Ml Ampul.Neb Administered 07/15/23 12:44 Dose 3 ml IH .STK-MED ONE Daptomycin 500 mg/ Sodium 10 mls @ 5 mls/min 07/15/23 12:15 07/15/23 12:17 Chloride IV 07/15/23 12:16 5 mls/min ONCE ONE Administration Ceftriaxone Sodium 1 gm in 100 mls @ 200 mls/hr 07/15/23 12:27 07/15/23 12:40 Rocephin 1 Gm / 100 Ml Nacl IV 07/15/23 12:56 200 ml/hr STAT ONE 200 mls/hr Administration Ceftriaxone Sodium Confirm 07/15/23 12:36 Rocephin 1 Gm / 100 Ml Nacl Administered 07/15/23 12:37 Dose 1 gm in 100 mls @ ud IV .STK-MED ONE Ondansetron HCl 4 mg 07/15/23 12:24 07/15/23 12:26 Ondansetron Hcl 4 Mg/2 Ml Vial IV 07/15/23 12:25 4 mg STAT ONE Administration Ondansetron HCl Confirm 07/15/23 12:25 Ondansetron Hcl 4 Mg/2 Ml Vial Administered 07/15/23 12:26 Dose 4 mg .ROUTE .STK-MED ONE Lab/Rad Data: Laboratory Result Diagrams 07/15/23 10:52 07/15/23 10:25 Laboratory Results 07/15/23 07/15/23 07/15/23 Range/Units Unknown 12:13 10:52 WBC (4.0-10.5) x10^3/uL RBC (4.1-5.6) x10^6/uL Hgb (12.5-18.0) g/dL Hct (42-50) % MCV (78-100) fL MCH (26-32) pg MCHC (32-36) g/dL RDW (11.5-14.0) % Plt Count (150-450) x10^3/uL MPV (7.5-11.0) fL Gran % (36.0-66.0) % Immature Gran % (Auto) (0.00-0.4) % Nucleat RBC Rel Count (0.00-0.1) % Eos # (Auto) (0-0.5) x10^3/uL Immature Gran # (Auto) (0.00-0.03) x10^3u/L Absolute Lymphs (auto) (1.0-4.6) x10^3/uL Absolute Monos (auto) (0.0-1.3) x10^3/uL Absolute Nucleated RBC (0.00-0.01) x10^3u/L Lymphocytes % (24.0-44.0) % Monocytes % (0.0-12.0) % Eosinophils % (0.00-5.0) % Basophils % (0.0-0.4) % Absolute Granulocytes (1.4-6.9) x10^3/uL Basophils # (0-0.4) x10^3/uL Sodium (135-145) mmol/L Potassium (3.5-5.1) mmol/L Chloride (98-107) mmol/L Carbon Dioxide (22-30) mmol/L Anion Gap (5-15) MEQ/L BUN (9-20) mg/dL Creatinine (0.66-1.25) mg/dL Estimated GFR ML/MIN Glucose (74-106) mg/dL POC Glucometer (74 to 106) mg/dL Lactic Acid 2.2 H (0.4-2.0) Calcium (8.4-10.2) mg/dL Total Bilirubin (0.2-1.3) mg/dL AST (17-59) U/L ALT (0-50) U/L Alkaline Phosphatase (38-126) U/L Serum Total Protein (6.3-8.2) g/dL Albumin (3.5-5.0) g/dL Lipase (23-300) U/L Urine Color Yellow (Yellow) Urine Appearance Clear (Clear) Urine pH 5.0 (4.6-8.0) Ur Specific [place] 1.010 (1.005-1.030) Urine Protein 30 (Negative) Urine Glucose (UA) >=1000 A (Negative) mg/dL Urine Ketones Negative (Negative) Urine Blood NHT (Negative) Urine Nitrite Negative (Negative) Urine Bilirubin Negative (Negative) Urine Urobilinogen 0.2 (0.2) mg/dL Ur Leukocyte Esterase Negative (Negative) U Hyaline Cast (Auto) 3-5 A (0-2) /LPF Urine Microscopic RBC 3-5 (0-5) /HPF Urine Microscopic WBC 0-2 (0-5) /HPF Ur Epithelial Cells None Seen (None Seen) /HPF Urine Bacteria None Seen (None Seen) /HPF Urine Culture Reflexed NO (NO) Influenza Type A Ag NEGATIVE (NEGATIVE) Influenza Type B Ag NEGATIVE (NEGATIVE) RSV (PCR) NEGATIVE (NEGATIVE) SARS-CoV-2 (PCR) NEGATIVE (NEGATIVE) Slides for Path Review 07/15/23 07/15/23 07/15/23 Range/Units 10:52 10:27 10:25 WBC 12.4 H (4.0-10.5) x10^3/uL RBC 3.60 L (4.1-5.6) x10^6/uL Hgb 10.1 L (12.5-18.0) g/dL Hct 32.7 L (42-50) % MCV 90.8 (78-100) fL MCH 28.1 (26-32) pg MCHC 30.9 L (32-36) g/dL RDW 15.7 H (11.5-14.0) % Plt Count 161 (150-450) x10^3/uL MPV 10.4 (7.5-11.0) fL Gran % 90.3 H (36.0-66.0) % Immature Gran % (Auto) 0.7 H (0.00-0.4) % Nucleat RBC Rel Count 0.0 (0.00-0.1) % Eos # (Auto) 0.20 (0-0.5) x10^3/uL Immature Gran # (Auto) 0.09 H (0.00-0.03) x10^3u/L Absolute Lymphs (auto) 0.23 L (1.0-4.6) x10^3/uL Absolute Monos (auto) 0.66 (0.0-1.3) x10^3/uL Absolute Nucleated RBC 0.00 (0.00-0.01) x10^3u/L Lymphocytes % 1.9 L (24.0-44.0) % Monocytes % 5.3 (0.0-12.0) % Eosinophils % 1.6 (0.00-5.0) % Basophils % 0.2 (0.0-0.4) % Absolute Granulocytes 11.21 H (1.4-6.9) x10^3/uL Basophils # 0.03 (0-0.4) x10^3/uL Sodium 134 L (135-145) mmol/L Potassium 4.2 (3.5-5.1) mmol/L Chloride 100 (98-107) mmol/L Carbon Dioxide 23 (22-30) mmol/L Anion Gap 14.9 (5-15) MEQ/L BUN 39 H (9-20) mg/dL Creatinine 2.67 H (0.66-1.25) mg/dL Estimated GFR 22.6 ML/MIN Glucose 191 H (74-106) mg/dL POC Glucometer 179 H (74 to 106) mg/dL Lactic Acid (0.4-2.0) Calcium 8.7 (8.4-10.2) mg/dL Total Bilirubin 0.80 (0.2-1.3) mg/dL AST 23 (17-59) U/L ALT 13 (0-50) U/L Alkaline Phosphatase 71 (38-126) U/L Serum Total Protein 6.9 (6.3-8.2) g/dL Albumin 3.5 (3.5-5.0) g/dL Lipase 44 (23-300) U/L Urine Color (Yellow) Urine Appearance (Clear) Urine pH (4.6-8.0) Ur Specific [place] (1.005-1.030) Urine Protein (Negative) Urine Glucose (UA) (Negative) mg/dL Urine Ketones (Negative) Urine Blood (Negative) Urine Nitrite (Negative) Urine Bilirubin (Negative) Urine Urobilinogen (0.2) mg/dL Ur Leukocyte Esterase (Negative) U Hyaline Cast (Auto) (0-2) /LPF Urine Microscopic RBC (0-5) /HPF Urine Microscopic WBC (0-5) /HPF Ur Epithelial Cells (None Seen) /HPF Urine Bacteria (None Seen) /HPF Urine Culture Reflexed (NO) Influenza Type A Ag (NEGATIVE) Influenza Type B Ag (NEGATIVE) RSV (PCR) (NEGATIVE) SARS-CoV-2 (PCR) (NEGATIVE) Slides for Path Review YES - Progress Progress: unchanged Progress Note: 07/15/23 13:01 87 years old is evaluated for fever chills earlier with cellulitis lower extremities culture positive for Pseudomonas/MRSA on Cubicin per ID recommendation. Patient is afebrile and here. Patient has a wound looked at yesterday by podiatry who is managing. He has a some shortness of breath and desatting to 89/90%, placed on 2 L oxygen and given a DuoNeb. Chest x-ray showed worsening infiltrative process on the left side reviewed by me followed by official read. I have added Rocephin and patient did receive his dose of Cub icin. Patient workup showed lactate of 2.2, has CKD with creatinine around 2.6 which is close to baseline. Cultures are obtained. I have discussed with Dr. Nobles, reviewed history, workup and recommended admission and he will evaluate patient if needed. I have discussed plan of care with patient and caregiver and recommended admission which they agree. I have discussed with Dr. Flores, reviewed history, workup and podiatry recommendations and patient is okay to be sent to floor. 07/15/23 13:04 Counseled pt/family regarding: lab results, diagnosis, rad results Medical Desision Making - Independent Historian Additional History obtained from: [employer] - Discussion of managment Care discussed with:: specialist (Dr. Nobles podiatry and Dr. Flores hospitalist) Reviewed:: Test results, Need for additional workup Agreed on:: Treatment plan, place in obs Will see patient: in hospital - Diagnostic Testing Diagnostic test were ordered, analyzed, and reviewed by me: Yes Radiological Interpretation: Interpreted by me, Reviewed by me - Risk of complications The pt has a high risk of morbidity or mortality based on: Decision regarding hospitilization or escalation of hosp level of care - Departure Departure Disposition: Observation Clinical Impression: Sepsis due to cellulitis, Pneumonia Condition: Stable Critical Care Time: No Referrals: ZAN CHOWDHURY [Primary Care Provider] - Follow up/PCP as directed
[2023-07-15] MEDS ORDERED: ROCEPHIN 1 GM / 100 ML NaCl 1 GM/100 ML IVPB IV ONE (12:36)
[2023-07-15 12:39] LABS: Slide Review 1 YES
[2023-07-15] MEDS: ROCEPHIN 1 GM / 100 ML NaCl 1 GM/100 ML IVPB IV ONE (12:40)
[2023-07-15] MEDS ORDERED: DUONEB 0.5-3 MG/3 ml Neb IH ONE (12:43)
[2023-07-15] MEDS: DUONEB 0.5-3 MG/3 ml Neb IH ONE (12:55)
--- NOTE | 2023-07-15 14:08 | PCM.HP ---
History of Present Illness - Chief Complaint Chief Complaint: LOWER EXTREMITY CELLULITIS, PNEUMONIA, SEPSIS Date: 07/15/23 History of Present Illness: is a 87 year old male with a pmhx of DM,CHF, DE HTN, HLD, CVA, right toe amputation, chronic recurrent cellulitis BLE, left foot wound with culture positive for Pseudomonas and MRSA is sensitive (OP treatment with Cubicin -under care of Dr. Streeter podiatry and Dr. Silver SWANSON) presented to ED 07/15/23 experienc ing nausea with dry heaves and fever Tmax 103 since yesterday. Patient reports that he has been getting outpatient Cubicin treatments for an infection of his left leg and foot but had to cancel due to how bad he was feeling. He denies cough, sob, cp, abdominal pain, MCKEON, dizziness, V/D. In ED vitals on arrival unremarkable. Patient is afebrile, normotensive, and spo2 is 92% on RA. CXR showing mild left base infiltrate/atelectasis/effusion. Labs showing leukocytosis with WBC at 12.4, creat at 2.67 which is near his baseline of 2.47 (patient follows with nephrology, Dr. Emery), lactic acid is 2.2. Patient received Ceftriaxone and Dapto in ED. Dr. Silver SWANSON consulted via telephone, recommends vancomycin/unasyn for further treatment. - Review of Systems Constitutional: Fever, Weakness Eyes: No Symptoms Ears, Nose, & Throat: No Symptoms Respiratory: No Symptoms Cardiac: No Symptoms Abdominal/Gastrointestinal: No Symptoms Genitourinary Symptoms: No Symptoms Musculoskeletal: No Symptoms Skin: Cellulitis (LLE - BLE with UNNA Boot compression dressings) Neurological: No Symptoms Psychological: No Symptoms Endocrine: No Symptoms Hematologic/Lymphatic: Anemia Immunological/Allergic: No Symptoms Medications & Allergies Home Medications: Home Medication List Citalopram Hydrobromide [Celexa] 20 mg PO DAILY 02/22/19 [History Confirmed 07/15/23] Ferrous Sulfate [Iron] 325 mg PO DAILY 02/22/19 [History Confirmed 07/15/23] Insulin Aspart [Novolog] 0 unit SQ TIDWMEALS 02/22/19 [History Confirmed 07/15/23] Insulin Glargine [Lantus Insulin] 10 unit SQ DAILY 02/22/19 [History Confirmed 07/15/23] Rivaroxaban [Xarelto] 2.5 mg PO BID 10/17/21 [History Confirmed 07/15/23] Torsemide 100 mg PO TID 10/17/21 [History Confirmed 07/15/23] Lactobacillus Acidophilus [Acidophilus TABLET] 1 tab PO BID 09/30/22 [History Confirmed 07/15/23] Levothyroxine Sodium [Synthroid] 25 mcg PO DAILY 09/30/22 [History Confirmed 07/15/23] Midodrine HCl 5 mg PO TID 09/30/22 [History Confirmed 07/15/23] Potassium Chloride 20 meq PO DAILY 09/30/22 [History Confirmed 07/15/23] Aspirin EC 81 mg [Ecotrin 81 mg] 81 mg PO DAILY 12/09/22 [History Confirmed 07/15/23] Tamsulosin HCl 0.4 mg [Flomax 0.4 MG] 1 cap PO DAILY 12/09/22 [History Confirmed 07/15/23] Diphenoxylate HCl/Atropine [Lomotil] 1 tab PO UD PRN 01/05/23 [History Confirmed 07/15/23] Ondansetron ODT 4 MG [Zofran Odt 4 mg] 4 mg PO Q6HPRN PRN 01/05/23 [History Confirmed 07/15/23] Amlodipine Besylate 5 mg [Norvasc 5 mg] 2.5 mg PO DAILY 07/15/23 [History Confirmed 07/15/23] Dapagliflozin Propanediol [Farxiga] 10 mg PO DAILY 07/15/23 [History Confirmed 07/15/23] Ergocalciferol (Vitamin D2) [Drisdol] 1,250 mcg PO WEEKLY 07/15/23 [History Confirmed 07/15/23] Allergies/Adverse Reactions: Allergies Allergy/AdvReac Type Severity Reaction Status Date / Time sulfamethoxazole Allergy Intermediate Swelling Verified 07/15/23 10:27 [From Bactrim] trimethoprim [From Bactrim] Allergy Intermediate Swelling Verified 07/15/23 10:27 Sulfa (Sulfonamide AdvReac Intermediate Swelling Verified 04/18/24 10:27 Antibiotics) - Past Medical History Past Medical History: Yes Neurological History: Stroke ENT History: No Pertinent History Cardiac History: Congestive Heart Failure, High Cholesterol, Hypertension, Myocardial Infarction (DE) Respiratory History: No Pertinent History Endocrine Medical History: Diabetes Type II Musculoskelatal History: Arthritis GI Medical History: No Pertinent History History: Renal Disease Pyscho-Social History: No Pertinent History Male Reproductive Disorders: No Pertinent History Comment: 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%", fall injuring jordon hands - Past Surgical History Past Surgical History: Yes Neuro Surgical History: No Pertinent History Cardiac History: Cardiac Catheterization, Other Respiratory Surgery: No Pertinent History GI Surgical History: No Pertinent History Genitourinary Surgical Hx: No Pertinent History Musculskeletal Surgical Hx: No Pertinent History, Orthopedic Surgery Male Surgical History: No Pertinent History Other Surgical History: Callus removed from ball of right foot; 2ND DIGIT RIGHT FOOT REMOVED, transmetatarsal right amputation, BLE stents - Social History Smoking Status: Never smoker Exposure to second hand smoke: No Alcohol: None Drug Use: none - Social Determinants of Health Will the patient participate in the screening: Declined to provide - Physical Exam Vital Signs: Vital Signs - 24 hr Temp Pulse Resp BP BP Pulse Ox 07/15/23 13:21 98.7 F 85 20 130/63 94 L 07/15/23 13:04 97 07/15/23 12:56 86 16 98 07/15/23 12:00 76 16 136/71 97 07/15/23 11:30 128/65 96 07/15/23 11:00 121/70 93 L 07/15/23 10:30 128/66 07/15/23 10:26 98.9 F 81 20 117/67 92 L General Appearance: no apparent distress Neurologic Exam: alert, oriented x 3, cooperative Eye Exam: PERRL/EOMI Ears, Nose, Throat Exam: normal ENT inspection Neck Exam: normal inspection Respiratory Exam: crackles/rales Cardiovascular Exam: regular rate/rhythm, normal heart sounds Gastrointestinal/Abdomen Exam: soft, normal bowel sounds Rectal Exam: deferred Back Exam: normal inspection Extremity Exam: other (BLE with Unna compression dressing) Skin Exam: pale Results - Labs Lab/Micro Results: Lab Results-Last 24 Hours 07/15/23 07/15/23 07/15/23 Range/Units 10:25 10:27 10:52 WBC 12.4 H (4.0-10.5) x10^3/uL RBC 3.60 L (4.1-5.6) x10^6/uL Hgb 10.1 L (12.5-18.0) g/dL Hct 32.7 L (42-50) % MCV 90.8 (78-100) fL MCH 28.1 (26-32) pg MCHC 30.9 L (32-36) g/dL RDW 15.7 H (11.5-14.0) % Plt Count 161 (150-450) x10^3/uL MPV 10.4 (7.5-11.0) fL Gran % 90.3 H (36.0-66.0) % Immature Gran % (Auto) 0.7 H (0.00-0.4) % Nucleat RBC Rel Count 0.0 (0.00-0.1) % Eos # (Auto) 0.20 (0-0.5) x10^3/uL Immature Gran # (Auto) 0.09 H (0.00-0.03) x10^3u/L Absolute Lymphs (auto) 0.23 L (1.0-4.6) x10^3/uL Absolute Monos (auto) 0.66 (0.0-1.3) x10^3/uL Absolute Nucleated RBC 0.00 (0.00-0.01) x10^3u/L Lymphocytes % 1.9 L (24.0-44.0) % Monocytes % 5.3 (0.0-12.0) % Eosinophils % 1.6 (0.00-5.0) % Basophils % 0.2 (0.0-0.4) % Absolute Granulocytes 11.21 H (1.4-6.9) x10^3/uL Basophils # 0.03 (0-0.4) x10^3/uL Sodium 134 L (135-145) mmol/L Potassium 4.2 (3.5-5.1) mmol/L Chloride 100 (98-107) mmol/L Carbon Dioxide 23 (22-30) mmol/L Anion Gap 14.9 (5-15) MEQ/L BUN 39 H (9-20) mg/dL Creatinine 2.67 H (0.66-1.25) mg/dL Estimated GFR 22.6 ML/MIN Glucose 191 H (74-106) mg/dL POC Glucometer 179 H (74 to 106) mg/dL Lactic Acid (0.4-2.0) Calcium 8.7 (8.4-10.2) mg/dL Total Bilirubin 0.80 (0.2-1.3) mg/dL AST 23 (17-59) U/L ALT 13 (0-50) U/L Alkaline Phosphatase 71 (38-126) U/L Serum Total Protein 6.9 (6.3-8.2) g/dL Albumin 3.5 (3.5-5.0) g/dL Lipase 44 (23-300) U/L Urine Color (Yellow) Urine Appearance (Clear) Urine pH (4.6-8.0) Ur Specific [place] (1.005-1.030) Urine Protein (Negative) Urine Glucose (UA) (Negative) mg/dL Urine Ketones (Negative) Urine Blood (Negative) Urine Nitrite (Negative) Urine Bilirubin (Negative) Urine Urobilinogen (0.2) mg/dL Ur Leukocyte Esterase (Negative) U Hyaline Cast (Auto) (0-2) /LPF Urine Microscopic RBC (0-5) /HPF Urine Microscopic WBC (0-5) /HPF Ur Epithelial Cells (None Seen) /HPF Urine Bacteria (None Seen) /HPF Urine Culture Reflexed (NO) Influenza Type A Ag (NEGATIVE) Influenza Type B Ag (NEGATIVE) RSV (PCR) (NEGATIVE) SARS-CoV-2 (PCR) (NEGATIVE) Slides for Path Review YES 07/15/23 07/15/23 07/15/23 Range/Units 10:52 12:13 Unknown WBC (4.0-10.5) x10^3/uL RBC (4.1-5.6) x10^6/uL Hgb (12.5-18.0) g/dL Hct (42-50) % MCV (78-100) fL MCH (26-32) pg MCHC (32-36) g/dL RDW (11.5-14.0) % Plt Count (150-450) x10^3/uL MPV (7.5-11.0) fL Gran % (36.0-66.0) % Immature Gran % (Auto) (0.00-0.4) % Nucleat RBC Rel Count (0.00-0.1) % Eos # (Auto) (0-0.5) x10^3/uL Immature Gran # (Auto) (0.00-0.03) x10^3u/L Absolute Lymphs (auto) (1.0-4.6) x10^3/uL Absolute Monos (auto) (0.0-1.3) x10^3/uL Absolute Nucleated RBC (0.00-0.01) x10^3u/L Lymphocytes % (24.0-44.0) % Monocytes % (0.0-12.0) % Eosinophils % (0.00-5.0) % Basophils % (0.0-0.4) % Absolute Granulocytes (1.4-6.9) x10^3/uL Basophils # (0-0.4) x10^3/uL Sodium (135-145) mmol/L Potassium (3.5-5.1) mmol/L Chloride (98-107) mmol/L Carbon Dioxide (22-30) mmol/L Anion Gap (5-15) MEQ/L BUN (9-20) mg/dL Creatinine (0.66-1.25) mg/dL Estimated GFR ML/MIN Glucose (74-106) mg/dL POC Glucometer (74 to 106) mg/dL Lactic Acid 2.2 H (0.4-2.0) Calcium (8.4-10.2) mg/dL Total Bilirubin (0.2-1.3) mg/dL AST (17-59) U/L ALT (0-50) U/L Alkaline Phosphatase (38-126) U/L Serum Total Protein (6.3-8.2) g/dL Albumin (3.5-5.0) g/dL Lipase (23-300) U/L Urine Color Yellow (Yellow) Urine Appearance Clear (Clear) Urine pH 5.0 (4.6-8.0) Ur Specific [place] 1.010 (1.005-1.030) Urine Protein 30 (Negative) Urine Glucose (UA) >=1000 A (Negative) mg/dL Urine Ketones Negative (Negative) Urine Blood NHT (Negative) Urine Nitrite Negative (Negative) Urine Bilirubin Negative (Negative) Urine Urobilinogen 0.2 (0.2) mg/dL Ur Leukocyte Esterase Negative (Negative) U Hyaline Cast (Auto) 3-5 A (0-2) /LPF Urine Microscopic RBC 3-5 (0-5) /HPF Urine Microscopic WBC 0-2 (0-5) /HPF Ur Epithelial Cells None Seen (None Seen) /HPF Urine Bacteria None Seen (None Seen) /HPF Urine Culture Reflexed NO (NO) Influenza Type A Ag NEGATIVE (NEGATIVE) Influenza Type B Ag NEGATIVE (NEGATIVE) RSV (PCR) NEGATIVE (NEGATIVE) SARS-CoV-2 (PCR) NEGATIVE (NEGATIVE) Slides for Path Review Accuchecks Date 07/15/23 Time 10:27 - Radiology Impressions Radiology Exams & Impressions: Radiology Procedures Category Date Time Status CHEST 1 VIEW (PORTABLE) Stat Exams 07/15/23 10:53 Completed - Other Procedures and Tests Respiratory Therapy 07/15/23 13:13 Oxygen Nasal Cannula 2 lpm Respiratory Therapy Consult ONCE 07/15/23 13:35 RT Screen per Nursing Assess ONCE Assessment/Plan (1) Cellulitis of lower extremity Current Visit: Yes Status: Acute Assessment & Plan: -Patient with PICC receiving OP infusion of Cubicin -left foot culture positive for Pseudomonas/MRSA. Spoke with Dr. Silver SWANSON - advised vanc/unasyn -Consult podiatry, patient with Unna compression dressing -Blood cultures pending (2) Infiltrate noted on imaging study Current Visit: Yes Status: Acute Assessment & Plan: -CXR reviewed showing worsening mild left base infiltrate/atelectasis/effusion, will get procal/nasal swab for MRSA -Supplemental oxygen for spo2 goal 88-92% - baseline is 2L QHS -RT eval -NEB/bronch -IS Code(s): R93.89 - ABNORMAL FINDINGS ON DX IMAGING OF OTH BODY STRUCTURES (3) Leukocytosis Current Visit: Yes Status: Acute Assessment & Plan: -secondary to left foot infection, ?pneumonia -Vanc/unasyn per ID -procal -Blood cultures pending -Does not meet sepsis/sirs criteria Code(s): D72.829 - ELEVATED WHITE BLOOD CELL COUNT, UNSPECIFIED (4) Anemia, chronic renal failure Current Visit: Yes Status: Acute Assessment & Plan: -at baseline hgb of 10.1 secondary to chronic renal disease -Continue to monitor Code(s): N18.9 - CHRONIC KIDNEY DISEASE, UNSPECIFIED; D63.1 - ANEMIA IN CHRONIC KIDNEY DISEASE (5) Acute on chronic renal failure Current Visit: No Status: Acute Qualifiers: Acute renal failure type: unspecified Chronic kidney disease stage: stage 3 (moderate) Assessment & Plan: -Baseline creat around 2.4 - follows with Dr. Emery -Avoid MEET/ARB/NSAIDS Code(s): N17.9 - ACUTE KIDNEY FAILURE, UNSPECIFIED; N18.9 - CHRONIC KIDNEY DISEASE, UNSPECIFIED (6) CHF (congestive heart failure) Current Visit: No Status: Acute Assessment & Plan: -No recent echo on file -BNP -Monitor renal/lytes Keep K>4, Mg >2 -daily weights -Strict I&O Code(s): I50.9 - HEART FAILURE, UNSPECIFIED (7) Diabetes type 2, controlled Current Visit: No Status: Chronic Qualifiers: Diabetes mellitus parts counterman insulin use: with senior living use Diabetes mellitus complication status: with skin complications Diabetes mellitus complication detail: with other skin complication Qualified Code(s): E11.628 - Type 2 diabetes mellitus with other skin complications; Z79.4 - parts counterman (current) use of insulin Assessment & Plan: -ADA diet -SSI -lantus -SSI -Hold Farxiga VTE: xarelto PPI: protonix Dispo 1-2 days Code(s): E11.9 - TYPE 2 DIABETES MELLITUS WITHOUT COMPLICATIONS (8) HTN (hypertension) Current Visit: Yes Status: Acute Assessment & Plan: -continue home medications, stable Code(s): I10 - ESSENTIAL (PRIMARY) HYPERTENSION Telemedicine Encounter - Telemedicine Encounter Telemedicine Encounter: The entirety of this encounter was performed via Telemedicine"
[2023-07-15] MEDS: PHARMACY DOSING REQUEST MC ONE (14:40)
[2023-07-15] MEDS ORDERED: Zofran 4 MG/2 ML VIAL IV PRN (14:49)
[2023-07-15] MEDS ORDERED: ZOFRAN ODT 4 MG PO PRN (14:53)
[2023-07-15] MEDS ORDERED: Sodium Chloride 0.9% 1000 ML 1,000 ML IV SCH (16:30)
[2023-07-15] MEDS: Flomax 0.4 MG PO SCH (17:19)
[2023-07-15] MEDS: Lantus Insulin SQ SCH (17:20)
[2023-07-15] MEDS: HUMALOG SQ PRN (17:20)
[2023-07-15] MEDS: ceLEXa 20 MG PO SCH (17:20)
[2023-07-15] MEDS ORDERED: NON-FORMULARY ITEM (Citalopram Hydrobromide [Celexa] 10 MG Tablet) PO SCH (18:00)
[2023-07-15] MEDS ORDERED: NON-FORMULARY ITEM (Midodrine Hcl [Midodrine Hcl] 10 MG Tablet) PO SCH (22:00)
[2023-07-15] MEDS ORDERED: NON-FORMULARY ITEM (Rivaroxaban [Xarelto] 2.5 MG Tablet) PO SCH (22:00)
[2023-07-15] MEDS: Unasyn 3 GM Vial*** 3 G in Sodium Chloride 100ML MINI-BAG PLUS 100 ML IV SCH (22:46)
[2023-07-15] MEDS: XARELTO 10 MG TABLET PO SCH (22:47)
[2023-07-15] MEDS: Acidophilus TABLET PO SCH (22:48)
[2023-07-15] MEDS: PROAMATINE PO SCH (22:48)
[2023-07-15] MEDS: VANCOMYCIN 1 GRAM/200 ML BAG 1 GM/200 ML PIGGYBACK IV SCH (23:21)
[2023-07-16 05:36] LABS: Hematocrit 30.2 % (42-50); Hemoglobin 9.2 g/dL (12.5-18.0); Mean Corpuscular Hemoglobin 27.7 pg (26-32); Mean Corpuscular Hgb Concent. 30.5 g/dL (32-36); Mean Platelet Volume 10.1 fL (7.5-11.0); Platelet Count 142 x10^3/uL (150-450); Red Blood Count 3.32 x10^6/uL (4.1-5.6); Red Cell Distribution Width 15.8 % (11.5-14.0); White Blood Count 8.3 x10^3/uL (4.0-10.5)
[2023-07-16 05:59] LABS: ANION GAP 11.8 MEQ/L (5-15); BILIRUBIN,TOTAL 0.4 mg/dL (0.2-1.3); Calcium 8.3 mg/dL (8.4-10.2); Creatinine 1 2.55 mg/dL (0.66-1.25); EST GLOMERULAR FILTRATION RATE 23.8 ML/MIN; Potassium 3.7 mmol/L (3.5-5.1); Total Protein 6.2 g/dL (6.3-8.2)
[2023-07-16] MEDS: SYNTHROID 25 MCG PO SCH (08:58)
[2023-07-16] MEDS: FEOSOL 325 MG PO SCH (08:58)
[2023-07-16] MEDS: Klor Con PO SCH (08:58)
[2023-07-16] MEDS: THERAGRAN MULTIVITAMIN PO SCH (08:59)
[2023-07-16] MEDS: ECOTRIN 81 MG PO SCH (08:59)
[2023-07-16] MEDS ORDERED: NON-FORMULARY ITEM (Multivitamin [Multivitamin] 1 EACH Tablet) PO SCH (10:00)
[2023-07-16] MEDS ORDERED: NON-FORMULARY ITEM (Potassium Chloride [Potassium Chloride] 20 MEQ Tablet.Er) PO SCH (10:00)
--- NOTE | 2023-07-16 10:17 | PCM.CONS ---
Podiatry HPI - Consult Date of Consultation Date: 07/16/23 Reason for Consult: Brawny edema, venous insufficiency, cellulitis, SIRS criteria Consulting Provider: KALLIE HAYES DPM - 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 Since then we have been seeing him for brawny edema with recurrent cellulitis and venous insufficiency. Patient has known MRSA and Pseudomonas infection in the past with recent exacerbation in the last 2 weeks. Seemingly this was resolved to some degree however patient had PICC line placed and started on IV antibiotics 2 days prior to admission with Dr. Horne. Patient presented to emergency department with fevers chills and an elevated white blood cell count. He endorses chills and fever. He indicates some shortness of breath which is baseline however no other constitutional symptoms of infection. Medications & Allergies Home Medications: Home Medication List Citalopram Hydrobromide [Celexa] 20 mg PO 1800 02/22/19 [History Confirmed 07/15/23] Ferrous Sulfate [Iron] 325 mg PO DAILY 02/22/19 [History Confirmed 07/15/23] Insulin Aspart [Novolog] 0 unit SQ [id number] 02/22/19 [History Confirmed 07/15/23] Insulin Glargine [Lantus Insulin] 5 unit SQ 1800 02/22/19 [History Confirmed 07/15/23] Rivaroxaban [Xarelto] 2.5 mg PO BID 10/17/21 [History Confirmed 07/15/23] Torsemide 100 mg PO BID 10/17/21 [History Confirmed 07/15/23] Lactobacillus Acidophilus [Acidophilus TABLET] 1 tab PO BID 09/30/22 [History Confirmed 07/15/23] Levothyroxine Sodium [Synthroid] 25 mcg PO DAILY 09/30/22 [History Confirmed 07/15/23] Midodrine HCl 20 mg PO BID 09/30/22 [History Confirmed 07/15/23] Potassium Chloride 20 meq PO DAILY 09/30/22 [History Confirmed 07/15/23] Aspirin EC 81 mg [Ecotrin 81 mg] 81 mg PO DAILY 12/09/22 [History Confirmed 07/15/23] Tamsulosin HCl 0.4 mg [Flomax 0.4 MG] 0.4 mg PO 1800 12/09/22 [History Confirmed 07/15/23] Diphenoxylate HCl/Atropine [Lomotil] 1 tab PO TID 01/05/23 [History Confirmed 07/15/23] Ondansetron ODT 4 MG [Zofran Odt 4 mg] 4 mg PO Q4HPRN PRN 01/05/23 [History Confirmed 07/15/23] Dapagliflozin Propanediol [Farxiga] 10 mg PO DAILY 07/15/23 [History Confirmed 07/15/23] Ergocalciferol (Vitamin D2) [Drisdol] 50,000 mcg PO WEEKLY 07/15/23 [History Confirmed 07/15/23] Inulin/Chromium Picolinate [Fiber Gummies] 2 each PO DAILY 07/15/23 [History Confirmed 07/15/23] Multivitamin 1 each PO DAILY 07/15/23 [History Confirmed 07/15/23] Allergies/Adverse Reactions: Allergies Allergy/AdvReac Type Severity Reaction Status Date / Time sulfamethoxazole Allergy Intermediate Swelling Verified 07/15/23 10:27 [From Bactrim] trimethoprim [From Bactrim] Allergy Intermediate Swelling Verified 07/15/23 10:27 Sulfa (Sulfonamide AdvReac Intermediate Swelling Verified 07/15/23 10:27 Antibiotics) - Past Medical History Past Medical History: Yes Neurological History: Stroke ENT History: No Pertinent History Cardiac History: Congestive Heart Failure, High Cholesterol, Hypertension, Myocardial Infarction (ME) Respiratory History: No Pertinent History Endocrine Medical History: Diabetes Type II Musculoskelatal History: Arthritis GI Medical History: No Pertinent History History: Renal Disease Pyscho-Social History: No Pertinent History Male Reproductive Disorders: No Pertinent History Comment: 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%", fall injuring jordon hands - Past Surgical History Past Surgical History: Yes Neuro Surgical History: No Pertinent History Cardiac History: Cardiac Catheterization, Other Respiratory Surgery: No Pertinent History GI Surgical History: No Pertinent History Genitourinary Surgical Hx: No Pertinent History Musculskeletal Surgical Hx: No Pertinent History, Orthopedic Surgery Male Surgical History: No Pertinent History Other Surgical History: Callus removed from ball of right foot; 2ND DIGIT RIGHT FOOT REMOVED, transmetatarsal right amputation, BLE stents - Social History Smoking Status: Never smoker Exposure to second hand smoke: No Alcohol: None Drug Use: none - Social Determinants of Health Will the patient participate in the screening: Declined to provide Physical Exam - Narrative Narrative Physical Exam: Podiatry Physical Exam Results - Labs Lab/Micro Results: Lab Results-Last 24 Hours 07/15/23 07/15/23 07/15/23 Range/Units 10:25 10:25 10:27 WBC (4.0-10.5) x10^3/uL RBC (4.1-5.6) x10^6/uL Hgb (12.5-18.0) g/dL Hct (42-50) % MCV (78-100) fL MCH (26-32) pg MCHC (32-36) g/dL RDW (11.5-14.0) % Plt Count (150-450) x10^3/uL MPV (7.5-11.0) fL Gran % (36.0-66.0) % Immature Gran % (Auto) (0.00-0.4) % Nucleat RBC Rel Count (0.00-0.1) % Eos # (Auto) (0-0.5) x10^3/uL Immature Gran # (Auto) (0.00-0.03) x10^3u/L Absolute Lymphs (auto) (1.0-4.6) x10^3/uL Absolute Monos (auto) (0.0-1.3) x10^3/uL Absolute Nucleated RBC (0.00-0.01) x10^3u/L Lymphocytes % (24.0-44.0) % Monocytes % (0.0-12.0) % Eosinophils % (0.00-5.0) % Basophils % (0.0-0.4) % Absolute Granulocytes (1.4-6.9) x10^3/uL Basophils # (0-0.4) x10^3/uL Sodium 134 L (135-145) mmol/L Potassium 4.2 (3.5-5.1) mmol/L Chloride 100 (98-107) mmol/L Carbon Dioxide 23 (22-30) mmol/L Anion Gap 14.9 (5-15) MEQ/L BUN 39 H (9-20) mg/dL Creatinine 2.67 H (0.66-1.25) mg/dL Estimated GFR 22.6 ML/MIN Glucose 191 H (74-106) mg/dL POC Glucometer 179 H (74 to 106) mg/dL Hemoglobin A1c (4.5-6.0) % Lactic Acid (0.4-2.0) Calcium 8.7 (8.4-10.2) mg/dL Total Bilirubin 0.80 (0.2-1.3) mg/dL AST 23 (17-59) U/L ALT 13 (0-50) U/L Alkaline Phosphatase 71 (38-126) U/L NT-Pro-B Natriuret Pep 74085 (<300) pg/mL Serum Total Protein 6.9 (6.3-8.2) g/dL Albumin 3.5 (3.5-5.0) g/dL Lipase 44 (23-300) U/L Procalcitonin (0.030-0.080) ng/mL Urine Color (Yellow) Urine Appearance (Clear) Urine pH (4.6-8.0) Ur Specific [place] (1.005-1.030) Urine Protein (Negative) Urine Glucose (UA) (Negative) mg/dL Urine Ketones (Negative) Urine Blood (Negative) Urine Nitrite (Negative) Urine Bilirubin (Negative) Urine Urobilinogen (0.2) mg/dL Ur Leukocyte Esterase (Negative) U Hyaline Cast (Auto) (0-2) /LPF Urine Microscopic RBC (0-5) /HPF Urine Microscopic WBC (0-5) /HPF Ur Epithelial Cells (None Seen) /HPF Urine Bacteria (None Seen) /HPF Urine Culture Reflexed (NO) Nasal Screen MRSA (PCR) (NEGATIVE) Influenza Type A Ag (NEGATIVE) Influenza Type B Ag (NEGATIVE) RSV (PCR) (NEGATIVE) SARS-CoV-2 (PCR) (NEGATIVE) Slides for Path Review 07/15/23 07/15/23 07/15/23 Range/Units 10:52 10:52 12:13 WBC 12.4 H (4.0-10.5) x10^3/uL RBC 3.60 L (4.1-5.6) x10^6/uL Hgb 10.1 L (12.5-18.0) g/dL Hct 32.7 L (42-50) % MCV 90.8 (78-100) fL MCH 28.1 (26-32) pg MCHC 30.9 L (32-36) g/dL RDW 15.7 H (11.5-14.0) % Plt Count 161 (150-450) x10^3/uL MPV 10.4 (7.5-11.0) fL Gran % 90.3 H (36.0-66.0) % Immature Gran % (Auto) 0.7 H (0.00-0.4) % Nucleat RBC Rel Count 0.0 (0.00-0.1) % Eos # (Auto) 0.20 (0-0.5) x10^3/uL Immature Gran # (Auto) 0.09 H (0.00-0.03) x10^3u/L Absolute Lymphs (auto) 0.23 L (1.0-4.6) x10^3/uL Absolute Monos (auto) 0.66 (0.0-1.3) x10^3/uL Absolute Nucleated RBC 0.00 (0.00-0.01) x10^3u/L Lymphocytes % 1.9 L (24.0-44.0) % Monocytes % 5.3 (0.0-12.0) % Eosinophils % 1.6 (0.00-5.0) % Basophils % 0.2 (0.0-0.4) % Absolute Granulocytes 11.21 H (1.4-6.9) x10^3/uL Basophils # 0.03 (0-0.4) x10^3/uL Sodium (135-145) mmol/L Potassium (3.5-5.1) mmol/L Chloride (98-107) mmol/L Carbon Dioxide (22-30) mmol/L Anion Gap (5-15) MEQ/L BUN (9-20) mg/dL Creatinine (0.66-1.25) mg/dL Estimated GFR ML/MIN Glucose (74-106) mg/dL POC Glucometer (74 to 106) mg/dL Hemoglobin A1c (4.5-6.0) % Lactic Acid 2.2 H (0.4-2.0) Calcium (8.4-10.2) mg/dL Total Bilirubin (0.2-1.3) mg/dL AST (17-59) U/L ALT (0-50) U/L Alkaline Phosphatase (38-126) U/L NT-Pro-B Natriuret Pep (<300) pg/mL Serum Total Protein (6.3-8.2) g/dL Albumin (3.5-5.0) g/dL Lipase (23-300) U/L Procalcitonin (0.030-0.080) ng/mL Urine Color Yellow (Yellow) Urine Appearance Clear (Clear) Urine pH 5.0 (4.6-8.0) Ur Specific [place] 1.010 (1.005-1.030) Urine Protein 30 (Negative) Urine Glucose (UA) >=1000 A (Negative) mg/dL Urine Ketones Negative (Negative) Urine Blood NHT (Negative) Urine Nitrite Negative (Negative) Urine Bilirubin Negative (Negative) Urine Urobilinogen 0.2 (0.2) mg/dL Ur Leukocyte Esterase Negative (Negative) U Hyaline Cast (Auto) 3-5 A (0-2) /LPF Urine Microscopic RBC 3-5 (0-5) /HPF Urine Microscopic WBC 0-2 (0-5) /HPF Ur Epithelial Cells None Seen (None Seen) /HPF Urine Bacteria None Seen (None Seen) /HPF Urine Culture Reflexed NO (NO) Nasal Screen MRSA (PCR) (NEGATIVE) Influenza Type A Ag (NEGATIVE) Influenza Type B Ag (NEGATIVE) RSV (PCR) (NEGATIVE) SARS-CoV-2 (PCR) (NEGATIVE) Slides for Path Review YES 07/15/23 07/15/23 07/15/23 Range/Units 13:05 13:06 15:05 WBC (4.0-10.5) x10^3/uL RBC (4.1-5.6) x10^6/uL Hgb (12.5-18.0) g/dL Hct (42-50) % MCV (78-100) fL MCH (26-32) pg MCHC (32-36) g/dL RDW (11.5-14.0) % Plt Count (150-450) x10^3/uL MPV (7.5-11.0) fL Gran % (36.0-66.0) % Immature Gran % (Auto) (0.00-0.4) % Nucleat RBC Rel Count (0.00-0.1) % Eos # (Auto) (0-0.5) x10^3/uL Immature Gran # (Auto) (0.00-0.03) x10^3u/L Absolute Lymphs (auto) (1.0-4.6) x10^3/uL Absolute Monos (auto) (0.0-1.3) x10^3/uL Absolute Nucleated RBC (0.00-0.01) x10^3u/L Lymphocytes % (24.0-44.0) % Monocytes % (0.0-12.0) % Eosinophils % (0.00-5.0) % Basophils % (0.0-0.4) % Absolute Granulocytes (1.4-6.9) x10^3/uL Basophils # (0-0.4) x10^3/uL Sodium (135-145) mmol/L Potassium (3.5-5.1) mmol/L Chloride (98-107) mmol/L Carbon Dioxide (22-30) mmol/L Anion Gap (5-15) MEQ/L BUN (9-20) mg/dL Creatinine (0.66-1.25) mg/dL Estimated GFR ML/MIN Glucose (74-106) mg/dL POC Glucometer (74 to 106) mg/dL Hemoglobin A1c 8.04 H (4.5-6.0) % Lactic Acid 2.0 (0.4-2.0) Calcium (8.4-10.2) mg/dL Total Bilirubin (0.2-1.3) mg/dL AST (17-59) U/L ALT (0-50) U/L Alkaline Phosphatase (38-126) U/L NT-Pro-B Natriuret Pep (<300) pg/mL Serum Total Protein (6.3-8.2) g/dL Albumin (3.5-5.0) g/dL Lipase (23-300) U/L Procalcitonin (0.030-0.080) ng/mL Urine Color (Yellow) Urine Appearance (Clear) Urine pH (4.6-8.0) Ur Specific [place] (1.005-1.030) Urine Protein (Negative) Urine Glucose (UA) (Negative) mg/dL Urine Ketones (Negative) Urine Blood (Negative) Urine Nitrite (Negative) Urine Bilirubin (Negative) Urine Urobilinogen (0.2) mg/dL Ur Leukocyte Esterase (Negative) U Hyaline Cast (Auto) (0-2) /LPF Urine Microscopic RBC (0-5) /HPF Urine Microscopic WBC (0-5) /HPF Ur Epithelial Cells (None Seen) /HPF Urine Bacteria (None Seen) /HPF Urine Culture Reflexed (NO) Nasal Screen MRSA (PCR) DETECTED A (NEGATIVE) Influenza Type A Ag (NEGATIVE) Influenza Type B Ag (NEGATIVE) RSV (PCR) (NEGATIVE) SARS-CoV-2 (PCR) (NEGATIVE) Slides for Path Review 07/15/23 07/16/23 07/16/23 Range/Units Unknown 05:25 05:25 WBC 8.3 (4.0-10.5) x10^3/uL RBC 3.32 L (4.1-5.6) x10^6/uL Hgb 9.2 L (12.5-18.0) g/dL Hct 30.2 L (42-50) % MCV 91.0 (78-100) fL MCH 27.7 (26-32) pg MCHC 30.5 L (32-36) g/dL RDW 15.8 H (11.5-14.0) % Plt Count 142 L (150-450) x10^3/uL MPV 10.1 (7.5-11.0) fL Gran % (36.0-66.0) % Immature Gran % (Auto) (0.00-0.4) % Nucleat RBC Rel Count (0.00-0.1) % Eos # (Auto) (0-0.5) x10^3/uL Immature Gran # (Auto) (0.00-0.03) x10^3u/L Absolute Lymphs (auto) (1.0-4.6) x10^3/uL Absolute Monos (auto) (0.0-1.3) x10^3/uL Absolute Nucleated RBC (0.00-0.01) x10^3u/L Lymphocytes % (24.0-44.0) % Monocytes % (0.0-12.0) % Eosinophils % (0.00-5.0) % Basophils % (0.0-0.4) % Absolute Granulocytes (1.4-6.9) x10^3/uL Basophils # (0-0.4) x10^3/uL Sodium 134 L (135-145) mmol/L Potassium 3.7 (3.5-5.1) mmol/L Chloride 102 (98-107) mmol/L Carbon Dioxide 24 (22-30) mmol/L Anion Gap 11.8 (5-15) MEQ/L BUN 44 H (9-20) mg/dL Creatinine 2.55 H (0.66-1.25) mg/dL Estimated GFR 23.8 ML/MIN Glucose 81 (74-106) mg/dL POC Glucometer (74 to 106) mg/dL Hemoglobin A1c (4.5-6.0) % Lactic Acid (0.4-2.0) Calcium 8.3 L (8.4-10.2) mg/dL Total Bilirubin 0.40 (0.2-1.3) mg/dL AST 25 (17-59) U/L ALT 13 (0-50) U/L Alkaline Phosphatase 68 (38-126) U/L NT-Pro-B Natriuret Pep (<300) pg/mL Serum Total Protein 6.2 L (6.3-8.2) g/dL Albumin 3.0 L (3.5-5.0) g/dL Lipase (23-300) U/L Procalcitonin (0.030-0.080) ng/mL Urine Color (Yellow) Urine Appearance (Clear) Urine pH (4.6-8.0) Ur Specific [place] (1.005-1.030) Urine Protein (Negative) Urine Glucose (UA) (Negative) mg/dL Urine Ketones (Negative) Urine Blood (Negative) Urine Nitrite (Negative) Urine Bilirubin (Negative) Urine Urobilinogen (0.2) mg/dL Ur Leukocyte Esterase (Negative) U Hyaline Cast (Auto) (0-2) /LPF Urine Microscopic RBC (0-5) /HPF Urine Microscopic WBC (0-5) /HPF Ur Epithelial Cells (None Seen) /HPF Urine Bacteria (None Seen) /HPF Urine Culture Reflexed (NO) Nasal Screen MRSA (PCR) (NEGATIVE) Influenza Type A Ag NEGATIVE (NEGATIVE) Influenza Type B Ag NEGATIVE (NEGATIVE) RSV (PCR) NEGATIVE (NEGATIVE) SARS-CoV-2 (PCR) NEGATIVE (NEGATIVE) Slides for Path Review 07/16/23 Range/Units 05:25 WBC (4.0-10.5) x10^3/uL RBC (4.1-5.6) x10^6/uL Hgb (12.5-18.0) g/dL Hct (42-50) % MCV (78-100) fL MCH (26-32) pg MCHC (32-36) g/dL RDW (11.5-14.0) % Plt Count (150-450) x10^3/uL MPV (7.5-11.0) fL Gran % (36.0-66.0) % Immature Gran % (Auto) (0.00-0.4) % Nucleat RBC Rel Count (0.00-0.1) % Eos # (Auto) (0-0.5) x10^3/uL Immature Gran # (Auto) (0.00-0.03) x10^3u/L Absolute Lymphs (auto) (1.0-4.6) x10^3/uL Absolute Monos (auto) (0.0-1.3) x10^3/uL Absolute Nucleated RBC (0.00-0.01) x10^3u/L Lymphocytes % (24.0-44.0) % Monocytes % (0.0-12.0) % Eosinophils % (0.00-5.0) % Basophils % (0.0-0.4) % Absolute Granulocytes (1.4-6.9) x10^3/uL Basophils # (0-0.4) x10^3/uL Sodium (135-145) mmol/L Potassium (3.5-5.1) mmol/L Chloride (98-107) mmol/L Carbon Dioxide (22-30) mmol/L Anion Gap (5-15) MEQ/L BUN (9-20) mg/dL Creatinine (0.66-1.25) mg/dL Estimated GFR ML/MIN Glucose (74-106) mg/dL POC Glucometer (74 to 106) mg/dL Hemoglobin A1c (4.5-6.0) % Lactic Acid (0.4-2.0) Calcium (8.4-10.2) mg/dL Total Bilirubin (0.2-1.3) mg/dL AST (17-59) U/L ALT (0-50) U/L Alkaline Phosphatase (38-126) U/L NT-Pro-B Natriuret Pep (<300) pg/mL Serum Total Protein (6.3-8.2) g/dL Albumin (3.5-5.0) g/dL Lipase (23-300) U/L Procalcitonin 0.598 H (0.030-0.080) ng/mL Urine Color (Yellow) Urine Appearance (Clear) Urine pH (4.6-8.0) Ur Specific [place] (1.005-1.030) Urine Protein (Negative) Urine Glucose (UA) (Negative) mg/dL Urine Ketones (Negative) Urine Blood (Negative) Urine Nitrite (Negative) Urine Bilirubin (Negative) Urine Urobilinogen (0.2) mg/dL Ur Leukocyte Esterase (Negative) U Hyaline Cast (Auto) (0-2) /LPF Urine Microscopic RBC (0-5) /HPF Urine Microscopic WBC (0-5) /HPF Ur Epithelial Cells (None Seen) /HPF Urine Bacteria (None Seen) /HPF Urine Culture Reflexed (NO) Nasal Screen MRSA (PCR) (NEGATIVE) Influenza Type A Ag (NEGATIVE) Influenza Type B Ag (NEGATIVE) RSV (PCR) (NEGATIVE) SARS-CoV-2 (PCR) (NEGATIVE) Slides for Path Review Accuchecks Date 07/16/23 Date 07/15/23 Date 07/15/23 Date 07/15/23 Time 07:20 Time 21:00 Time 16:32 Time 10:27 - Radiology Impressions Radiology Exams & Impressions: Radiology Procedures Category Date Time Status CHEST 1 VIEW (PORTABLE) Stat Exams 07/15/23 10:53 Completed - Other Procedures and Tests Respiratory Therapy 07/15/23 13:13 Oxygen Nasal Cannula 2 lpm Assessment/Plan (1) CHF (congestive heart failure) Current Visit: No Status: Acute Code(s): I50.9 - HEART FAILURE, UNSPECIFIED (2) SIRS (systemic inflammatory response syndrome) Current Visit: No Status: Resolved Assessment & Plan: Patient examination at bedside demonstrating significantly improved clinically Which has healed at this time. Patient does have venous insufficiency and swelling to bilateral lower extremity with ulceration. Unna boot to the bilateral lower extremity. for venous insufficiency ulcer. Growth of MRSA and Pseudomonas on previous presentation. Most recent presentation demonstrating only gram-negative however culture and sensitivity has not returned PICC line -Consulted Dr. Sheppard for Abx management given renal issues. Antibiotics have changed from outpatient to admission At this time infectious disease managing antibiotics with Unasyn and vancomycin. History of Pseudomonas and MRSA. He has acute on chronic kidney disease Issue is chronic with venous insufficiency. Potentiate discussion for change in diuresis with Dr. Goetz versus Dr. Machuca. For now will monitor dressing changes Wednesday Will follow with you. thank you for the consult Code(s): R65.10 - SIRS OF NON-INFECTIOUS ORIGIN W/O ACUTE ORGAN DYSFUNCTION (3) Leukocytosis Current Visit: No Status: Acute Code(s): D72.829 - ELEVATED WHITE BLOOD CELL COUNT, UNSPECIFIED (4) Chronic renal insufficiency Current Visit: No Status: Acute Code(s): N18.9 - CHRONIC KIDNEY DISEASE, UNSPECIFIED (5) Sepsis due to cellulitis Current Visit: Yes Status: Acute Code(s): L03.90 - CELLULITIS, UNSPECIFIED; A41.9 - SEPSIS, UNSPECIFIED ORGANISM (6) Cellulitis of lower extremity Current Visit: Yes Status: Acute (7) Diabetes type 2, controlled Current Visit: No Status: Chronic Qualifiers: Diabetes mellitus watermaster insulin use: with watermaster use Diabetes mellitus complication status: with skin complications Diabetes mellitus complication detail: with other skin complication Qualified Code(s): E11.628 - Type 2 diabetes mellitus with other skin complications; Z79.4 - skilled nursing (current) use of insulin Code(s): E11.9 - TYPE 2 DIABETES MELLITUS WITHOUT COMPLICATIONS
--- NOTE | 2023-07-16 12:03 | PCM.NOTE ---
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 Streeter podiatry and Dr. Silver SWANSON) presented to ED 07/15/23 experiencing nausea with dry heaves and fever Tmax 103 since yesterday. Patient reports that he has been getting outpatient Cubicin treatments for an infection of his left leg and foot but had to cancel due to how bad he was feeling.In ED vitals on arrival unremarkable. Patient is afebrile, normotensive, and spo2 is 92% on RA. CXR showing mild left base infiltrate/atelectasis/effusion. Labs showing leukocytosis with WBC at 12.4, creat at 2.67 which is near his baseline of 2.47 (patient follows with nephrology, Dr. Emery), lactic acid is 2.2. Patient received Ceftriaxone and Dapto in ED. Dr. Sheppard - KIKI consulted via telephone, recommends vancomycin/cefepime for further treatment. 07/16/23: Met with patient bedside. Endorses nausea has resolved. Mild temperature last night. Consultations with podiatry and ID, patient does have venous insufficiency BLE with ulceration. He arrived with Unna boot to [facility] for compression therapy of this venous ulcer. Cultures with pseudomonas/MRSA. Per ID will treat with Vanc/Cefepime. Obtain blood cultures from PICC line. Denies fcp, abdominal pain, MCKEON, dizziness, N/V/D. - Review of Systems Constitutional: Fever, Weakness Eyes: No Symptoms Ears, Nose, & Throat: No Symptoms Respiratory: Cough, Short Of Breath Cardiac: Edema (ble) Abdominal/Gastrointestinal: No Symptoms Genitourinary Symptoms: No Symptoms Musculoskeletal: No Symptoms Skin: Cellulitis (BLE ) Neurological: No Symptoms Psychological: No Symptoms Endocrine: No Symptoms Hematologic/Lymphatic: No Symptoms Immunological/Allergic: No Symptoms Objective Exam General Appearance: no apparent distress Neurologic Exam: alert, oriented x 3, cooperative Skin Exam: normal color Wound Assessment: Skin/Wound Assessment Wound/Incision Assessment Start: 07/15/23 13:16 Text: Status: Active Freq: Q6H Protocol: Document 07/16/23 08:00 AR (Rec: 07/16/23 09:47 AR [id number]) Wound/Incision Assessment jordon lower extremities Wound Assessment Shift Assessment Wound Type cellulitis Wound Stage Non Pressure Wound Dressing Status Dry & Intact Comment BLE dressed by Dr. Streeter, in place CDI. Wound Photo Photo Taken Yes Date: 07/16/23 Time: 09:47 Eye Exam: PERRL Ears, Nose, Throat Exam: moist mucous membranes Neck Exam: normal inspection Respiratory Exam: crackles/rales Cardiovascular Exam: regular rate/rhythm, normal heart sounds Gastrointestinal/Abdomen Exam: soft, normal bowel sounds Extremity Exam: other (BLE edema) Back Exam: normal inspection Objective Data Vital Signs: Vital Signs - 24 hr Temp Pulse Resp BP BP Pulse Ox 07/16/23 11:42 97.8 F 79 18 124/60 95 07/16/23 07:20 98.6 F 91 H 21 131/56 95 07/16/23 05:15 94 L 07/16/23 04:00 99.8 F 93 H 19 125/63 94 L 07/15/23 23:36 97.9 F 86 18 115/62 95 07/15/23 20:00 100.0 F 89 18 118/56 93 L 07/15/23 19:13 92 L 07/15/23 14:14 98 07/15/23 13:21 98.7 F 85 20 130/63 94 L 07/15/23 13:04 97 07/15/23 12:56 86 16 98 07/15/23 12:00 76 16 136/71 97 Pain Assessment - Last Documented Pain Intensity 0 Intake and Output: Intake & Output 07/13/23 07/14/23 07/15/23 07/16/23 11:59 11:59 11:59 11:59 Intake Total 1050 Balance 1050 Weight 84.6 kg 86 kg Lab Results: Lab Results-Last 24 Hours 07/15/23 07/15/23 07/15/23 Range/Units 10:25 10:52 12:13 WBC (4.0-10.5) x10^3/uL RBC (4.1-5.6) x10^6/uL Hgb (12.5-18.0) g/dL Hct (42-50) % MCV (78-100) fL MCH (26-32) pg MCHC (32-36) g/dL RDW (11.5-14.0) % Plt Count (150-450) x10^3/uL MPV (7.5-11.0) fL Sodium (135-145) mmol/L Potassium (3.5-5.1) mmol/L Chloride (98-107) mmol/L Carbon Dioxide (22-30) mmol/L Anion Gap (5-15) MEQ/L BUN (9-20) mg/dL Creatinine (0.66-1.25) mg/dL Estimated GFR ML/MIN Glucose (74-106) mg/dL Hemoglobin A1c (4.5-6.0) % Lactic Acid (0.4-2.0) Calcium (8.4-10.2) mg/dL Total Bilirubin (0.2-1.3) mg/dL AST (17-59) U/L ALT (0-50) U/L Alkaline Phosphatase (38-126) U/L NT-Pro-B Natriuret Pep 38535 (<300) pg/mL Serum Total Protein (6.3-8.2) g/dL Albumin (3.5-5.0) g/dL Procalcitonin (0.030-0.080) ng/mL Urine Color Yellow (Yellow) Urine Appearance Clear (Clear) Urine pH 5.0 (4.6-8.0) Ur Specific [place] 1.010 (1.005-1.030) Urine Protein 30 (Negative) Urine Glucose (UA) >=1000 A (Negative) mg/dL Urine Ketones Negative (Negative) Urine Blood NHT (Negative) Urine Nitrite Negative (Negative) Urine Bilirubin Negative (Negative) Urine Urobilinogen 0.2 (0.2) mg/dL Ur Leukocyte Esterase Negative (Negative) U Hyaline Cast (Auto) 3-5 A (0-2) /LPF Urine Microscopic RBC 3-5 (0-5) /HPF Urine Microscopic WBC 0-2 (0-5) /HPF Ur Epithelial Cells None Seen (None Seen) /HPF Urine Bacteria None Seen (None Seen) /HPF Urine Culture Reflexed NO (NO) Nasal Screen MRSA (PCR) (NEGATIVE) Influenza Type A Ag (NEGATIVE) Influenza Type B Ag (NEGATIVE) RSV (PCR) (NEGATIVE) SARS-CoV-2 (PCR) (NEGATIVE) Slides for Path Review YES 07/15/23 07/15/23 07/15/23 Range/Units 13:05 13:06 15:05 WBC (4.0-10.5) x10^3/uL RBC (4.1-5.6) x10^6/uL Hgb (12.5-18.0) g/dL Hct (42-50) % MCV (78-100) fL MCH (26-32) pg MCHC (32-36) g/dL RDW (11.5-14.0) % Plt Count (150-450) x10^3/uL MPV (7.5-11.0) fL Sodium (135-145) mmol/L Potassium (3.5-5.1) mmol/L Chloride (98-107) mmol/L Carbon Dioxide (22-30) mmol/L Anion Gap (5-15) MEQ/L BUN (9-20) mg/dL Creatinine (0.66-1.25) mg/dL Estimated GFR ML/MIN Glucose (74-106) mg/dL Hemoglobin A1c 8.04 H (4.5-6.0) % Lactic Acid 2.0 (0.4-2.0) Calcium (8.4-10.2) mg/dL Total Bilirubin (0.2-1.3) mg/dL AST (17-59) U/L ALT (0-50) U/L Alkaline Phosphatase (38-126) U/L NT-Pro-B Natriuret Pep (<300) pg/mL Serum Total Protein (6.3-8.2) g/dL Albumin (3.5-5.0) g/dL Procalcitonin (0.030-0.080) ng/mL Urine Color (Yellow) Urine Appearance (Clear) Urine pH (4.6-8.0) Ur Specific [place] (1.005-1.030) Urine Protein (Negative) Urine Glucose (UA) (Negative) mg/dL Urine Ketones (Negative) Urine Blood (Negative) Urine Nitrite (Negative) Urine Bilirubin (Negative) Urine Urobilinogen (0.2) mg/dL Ur Leukocyte Esterase (Negative) U Hyaline Cast (Auto) (0-2) /LPF Urine Microscopic RBC (0-5) /HPF Urine Microscopic WBC (0-5) /HPF Ur Epithelial Cells (None Seen) /HPF Urine Bacteria (None Seen) /HPF Urine Culture Reflexed (NO) Nasal Screen MRSA (PCR) DETECTED A (NEGATIVE) Influenza Type A Ag (NEGATIVE) Influenza Type B Ag (NEGATIVE) RSV (PCR) (NEGATIVE) SARS-CoV-2 (PCR) (NEGATIVE) Slides for Path Review 07/15/23 07/16/23 07/16/23 Range/Units Unknown 05:25 05:25 WBC 8.3 (4.0-10.5) x10^3/uL RBC 3.32 L (4.1-5.6) x10^6/uL Hgb 9.2 L (12.5-18.0) g/dL Hct 30.2 L (42-50) % MCV 91.0 (78-100) fL MCH 27.7 (26-32) pg MCHC 30.5 L (32-36) g/dL RDW 15.8 H (11.5-14.0) % Plt Count 142 L (150-450) x10^3/uL MPV 10.1 (7.5-11.0) fL Sodium 134 L (135-145) mmol/L Potassium 3.7 (3.5-5.1) mmol/L Chloride 102 (98-107) mmol/L Carbon Dioxide 24 (22-30) mmol/L Anion Gap 11.8 (5-15) MEQ/L BUN 44 H (9-20) mg/dL Creatinine 2.55 H (0.66-1.25) mg/dL Estimated GFR 23.8 ML/MIN Glucose 81 (74-106) mg/dL Hemoglobin A1c (4.5-6.0) % Lactic Acid (0.4-2.0) Calcium 8.3 L (8.4-10.2) mg/dL Total Bilirubin 0.40 (0.2-1.3) mg/dL AST 25 (17-59) U/L ALT 13 (0-50) U/L Alkaline Phosphatase 68 (38-126) U/L NT-Pro-B Natriuret Pep (<300) pg/mL Serum Total Protein 6.2 L (6.3-8.2) g/dL Albumin 3.0 L (3.5-5.0) g/dL Procalcitonin (0.030-0.080) ng/mL Urine Color (Yellow) Urine Appearance (Clear) Urine pH (4.6-8.0) Ur Specific [place] (1.005-1.030) Urine Protein (Negative) Urine Glucose (UA) (Negative) mg/dL Urine Ketones (Negative) Urine Blood (Negative) Urine Nitrite (Negative) Urine Bilirubin (Negative) Urine Urobilinogen (0.2) mg/dL Ur Leukocyte Esterase (Negative) U Hyaline Cast (Auto) (0-2) /LPF Urine Microscopic RBC (0-5) /HPF Urine Microscopic WBC (0-5) /HPF Ur Epithelial Cells (None Seen) /HPF Urine Bacteria (None Seen) /HPF Urine Culture Reflexed (NO) Nasal Screen MRSA (PCR) (NEGATIVE) Influenza Type A Ag NEGATIVE (NEGATIVE) Influenza Type B Ag NEGATIVE (NEGATIVE) RSV (PCR) NEGATIVE (NEGATIVE) SARS-CoV-2 (PCR) NEGATIVE (NEGATIVE) Slides for Path Review 07/16/23 Range/Units 05:25 WBC (4.0-10.5) x10^3/uL RBC (4.1-5.6) x10^6/uL Hgb (12.5-18.0) g/dL Hct (42-50) % MCV (78-100) fL MCH (26-32) pg MCHC (32-36) g/dL RDW (11.5-14.0) % Plt Count (150-450) x10^3/uL MPV (7.5-11.0) fL Sodium (135-145) mmol/L Potassium (3.5-5.1) mmol/L Chloride (98-107) mmol/L Carbon Dioxide (22-30) mmol/L Anion Gap (5-15) MEQ/L BUN (9-20) mg/dL Creatinine (0.66-1.25) mg/dL Estimated GFR ML/MIN Glucose (74-106) mg/dL Hemoglobin A1c (4.5-6.0) % Lactic Acid (0.4-2.0) Calcium (8.4-10.2) mg/dL Total Bilirubin (0.2-1.3) mg/dL AST (17-59) U/L ALT (0-50) U/L Alkaline Phosphatase (38-126) U/L NT-Pro-B Natriuret Pep (<300) pg/mL Serum Total Protein (6.3-8.2) g/dL Albumin (3.5-5.0) g/dL Procalcitonin 0.598 H (0.030-0.080) ng/mL Urine Color (Yellow) Urine Appearance (Clear) Urine pH (4.6-8.0) Ur Specific [place] (1.005-1.030) Urine Protein (Negative) Urine Glucose (UA) (Negative) mg/dL Urine Ketones (Negative) Urine Blood (Negative) Urine Nitrite (Negative) Urine Bilirubin (Negative) Urine Urobilinogen (0.2) mg/dL Ur Leukocyte Esterase (Negative) U Hyaline Cast (Auto) (0-2) /LPF Urine Microscopic RBC (0-5) /HPF Urine Microscopic WBC (0-5) /HPF Ur Epithelial Cells (None Seen) /HPF Urine Bacteria (None Seen) /HPF Urine Culture Reflexed (NO) Nasal Screen MRSA (PCR) (NEGATIVE) Influenza Type A Ag (NEGATIVE) Influenza Type B Ag (NEGATIVE) RSV (PCR) (NEGATIVE) SARS-CoV-2 (PCR) (NEGATIVE) Slides for Path Review Radiology Exams: Radiology Procedures Category Date Time Status CHEST 1 VIEW (PORTABLE) Stat Exams 07/15/23 10:53 Completed Multi-Disciplinary Progress Notes: Multi-Disciplinary Progress Notes 07/15/23 13:50 Case Management Note by Bettie Che PATIENT HAS [employer]. THEY WERE NOTIFIED PATIENT IS HERE UNDER OBS. THEY WILL NEED NOTIFIED AT TIME OF DC AT [phone]. THEY WILL NEED FAXED THE DC INSTRUCTIONS, DC MED LIST AND DC SUMMARY TO [phone] Initialized on 07/15/23 13:50 - END OF NOTE Assessment/Plan (1) Cellulitis of lower extremity Current Visit: Yes Status: Acute Assessment & Plan: -Patient with PICC receiving OP infusion of Cubicin -left foot culture positive for Pseudomonas/MRSA. Spoke with Dr. Silver SWANSON - advised vanc/cefepime -Blood cultures pending -ordered for a set to be done from PICC line (2) Infiltrate noted on imaging study Current Visit: Yes Status: Acute Assessment & Plan: -CXR reviewed showing worsening mild left base infiltrate/atelectasis/effusion, will get procal/nasal swab for MRSA -Supplemental oxygen for spo2 goal 88-92% - baseline is 2L QHS -RT eval -NEB/bronch -IS 07/16/23: -Continue van/cefe -wean oxygen Code(s): R93.89 - ABNORMAL FINDINGS ON DX IMAGING OF OTH BODY STRUCTURES (3) Leukocytosis Current Visit: Yes Status: Acute Assessment & Plan: -secondary to left foot infection, ?pneumonia -Vanc/unasyn per ID -procal -Blood cultures pending -Does not meet sepsis/sirs criteria 07/15: -resolved Code(s): D72.829 - ELEVATED WHITE BLOOD CELL COUNT, UNSPECIFIED (4) Anemia, chronic renal failure Current Visit: Yes Status: Acute Assessment & Plan: -at baseline hgb of 10.1 secondary to chronic renal disease -Continue to monitor Code(s): N18.9 - CHRONIC KIDNEY DISEASE, UNSPECIFIED; D63.1 - ANEMIA IN CHRONIC KIDNEY DISEASE (5) Acute on chronic renal failure Current Visit: No Status: Acute Qualifiers: Acute renal failure type: unspecified Chronic kidney disease stage: stage 3 (moderate) Assessment & Plan: -Baseline creat around 2.4 - follows with Dr. Emery -Avoid MEET/ARB/NSAIDS Code(s): N17.9 - ACUTE KIDNEY FAILURE, UNSPECIFIED; N18.9 - CHRONIC KIDNEY DISEASE, UNSPECIFIED (6) CHF (congestive heart failure) Current Visit: No Status: Acute Assessment & Plan: -No recent echo on file -BNP -Monitor renal/lytes Keep K>4, Mg >2 -daily weights -Strict I&O 07/15: -Hold torsemide for now with STEPHANY Code(s): I50.9 - HEART FAILURE, UNSPECIFIED (7) Diabetes type 2, controlled Current Visit: No Status: Chronic Qualifiers: Diabetes mellitus fci insulin use: with fci use Diabetes mellitus complication status: with skin complications Diabetes mellitus complication detail: with other skin complication Qualified Code(s): E11.628 - Type 2 diabetes mellitus with other skin complications; Z79.4 - plate cleaner (current) use of insulin Assessment & Plan: -ADA diet -SSI -lantus -SSI -Hold Farxiga VTE: xarelto PPI: protonix Dispo 1-2 days Code(s): E11.9 - TYPE 2 DIABETES MELLITUS WITHOUT COMPLICATIONS (8) HTN (hypertension) Current Visit: Yes Status: Acute Assessment & Plan: -continue home medications, stable Code(s): I10 - ESSENTIAL (PRIMARY) HYPERTENSION (2) Infiltrate noted on imaging study Current Visit: Yes Status: Acute Code(s): R93.89 - ABNORMAL FINDINGS ON DX IMAGING OF OTH BODY STRUCTURES (3) Leukocytosis Current Visit: Yes Status: Acute Code(s): D72.829 - ELEVATED WHITE BLOOD CELL COUNT, UNSPECIFIED (4) Anemia, chronic renal failure Current Visit: Yes Status: Acute Code(s): N18.9 - CHRONIC KIDNEY DISEASE, UNSPECIFIED; D63.1 - ANEMIA IN CHRONIC KIDNEY DISEASE (5) Acute on chronic renal failure Current Visit: No Status: Acute Qualifiers: Acute renal failure type: unspecified Chronic kidney disease stage: stage 3 (moderate) Code(s): N17.9 - ACUTE KIDNEY FAILURE, UNSPECIFIED; N18.9 - CHRONIC KIDNEY DISEASE, UNSPECIFIED (6) CHF (congestive heart failure) Current Visit: No Status: Acute Code(s): I50.9 - HEART FAILURE, UNSPECIFIED (7) Diabetes type 2, controlled Current Visit: No Status: Chronic Qualifiers: 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
[2023-07-16] MEDS: PHARMACY RENAL DOSING MC ONE (12:24)
[2023-07-16] MEDS: Maxipime 2 GM** 2 G in Sodium Chloride 100ML MINI-BAG PLUS 100 ML IV SCH (12:24)
[2023-07-16] MEDS: PROAMATINE PO SCH (18:45)
[2023-07-16] MEDS: TYLENOL 325 MG PO PRN (21:47)
[2023-07-17 06:03] LABS: Hematocrit 29.7 % (42-50); Hemoglobin 9.3 g/dL (12.5-18.0); Mean Corpuscular Hemoglobin 28.2 pg (26-32); Mean Corpuscular Hgb Concent. 31.3 g/dL (32-36); Mean Platelet Volume 10.7 fL (7.5-11.0); Platelet Count 151 x10^3/uL (150-450); Red Cell Distribution Width 15.8 % (11.5-14.0); White Blood Count 6.9 x10^3/uL (4.0-10.5)
[2023-07-17 06:46] LABS: ALBUMIN 2.9 g/dL (3.5-5.0); ANION GAP 10.6 MEQ/L (5-15); BILIRUBIN,TOTAL 0.8 mg/dL (0.2-1.3); Calcium 8.9 mg/dL (8.4-10.2); Creatinine 1 2.43 mg/dL (0.66-1.25); EST GLOMERULAR FILTRATION RATE 25.3 ML/MIN; Potassium 3.7 mmol/L (3.5-5.1)
--- NOTE | 2023-07-17 07:45 | PCM.NOTE ---
Date and Time: 07/17/23 0743 Subjective Assessment: Sleeping at bedside this AM. Physical Exam - Vascular Peripheral Pulses: Posterior tibialis: 2+, Dorsalis-Pedis: 2+ Capillary Refill Time: < 3 seconds Varicosities: Positive Edema: Pitting Edema Degree: 2+ - Muscular Foot Type: L TMA - Narrative Narrative Physical Exam: Podiatry Physical Exam Objective Data Vital Signs: Vital Signs - 24 hr Temp Pulse Resp BP Pulse Ox 07/17/23 04:00 98.0 F 84 20 111/53 91 L 07/16/23 23:26 98.6 F 84 20 98/46 94 L 07/16/23 19:46 98.4 F 91 H 20 136/68 98 07/16/23 19:15 99 07/16/23 16:00 98.6 F 80 24 127/79 97 07/16/23 11:42 97.8 F 79 18 124/60 95 Pain Assessment - Last Documented Pain Intensity 0 Pain Scale Used 0-10 Pain Scale Intake and Output: Intake & Output 07/14/23 07/15/23 07/16/23 07/17/23 11:59 11:59 11:59 11:59 Intake Total 1050 1450 Output Total 910 Balance 1050 540 Weight 84.6 kg 86 kg 86 kg Lab Results: Lab Results-Last 24 Hours 07/16/23 07/17/23 07/17/23 Range/Units 05:25 05:37 05:37 WBC 6.9 (4.0-10.5) x10^3/uL RBC 3.30 L (4.1-5.6) x10^6/uL Hgb 9.3 L (12.5-18.0) g/dL Hct 29.7 L (42-50) % MCV 90.0 (78-100) fL MCH 28.2 (26-32) pg MCHC 31.3 L (32-36) g/dL RDW 15.8 H (11.5-14.0) % Plt Count 151 (150-450) x10^3/uL MPV 10.7 (7.5-11.0) fL Sodium 133 L (135-145) mmol/L Potassium 3.7 (3.5-5.1) mmol/L Chloride 102 (98-107) mmol/L Carbon Dioxide 23 (22-30) mmol/L Anion Gap 10.6 (5-15) MEQ/L BUN 48 H (9-20) mg/dL Creatinine 2.43 H (0.66-1.25) mg/dL Estimated GFR 25.3 ML/MIN Glucose 77 (74-106) mg/dL Calcium 8.9 (8.4-10.2) mg/dL Total Bilirubin 0.80 (0.2-1.3) mg/dL AST 21 (17-59) U/L ALT 11 (0-50) U/L Alkaline Phosphatase 65 (38-126) U/L NT-Pro-B Natriuret Pep 60609 (<300) pg/mL Serum Total Protein 6.0 L (6.3-8.2) g/dL Albumin 2.9 L (3.5-5.0) g/dL Procalcitonin 0.598 H (0.030-0.080) ng/mL Radiology Exams: Radiology Procedures Category Date Time Status CHEST 1 VIEW (PORTABLE) Stat Exams 07/15/23 10:53 Completed ECHO W/2D AND DOPPLER [US] Routine Exams 07/19/23 08:00 Ordered Multi-Disciplinary Progress Notes: Multi-Disciplinary Progress Notes 07/16/23 14:29 Case Management Note by Bettie Che Addendum entered by Bettie Che 07/16/23 14:33: PATIENT CURRENTLY ON 2L/NC- DOES NOT WEAR 24/7 AT HOME. PLACED [facility] [place] ORDER SHEET IN OFFICE FOR ORGANISATION AND METHODS ANALYST IF 24 HR O2 NEEDED AT DC. PATIENT ALREADY HAS O2 AT THRU [facility] [place] Original Note: S/W DAUGHTER EN- SHE DENIES ANY NEW NEEDS FOR PATIENT AT TIME OF DC. SHE IS IN THE PROCESS OF WORKING ON GETTING PATIENT MEDICAID TO CONTINUE TO PAY FOR HIS CAREGIVERS. SHE WAS NOTIFIED [facility] CAN ASSIST HER WITH OPTIONS WELL. SHE WAS GIVEN THEIR PHONE NUMBER. SHE PLANS FOR PATIENT TO RETURN HOME TO HIS APARTMENT WITH CAREGIVERS AT TIME OF DC. SHE REPORTS IF PATIENT NEEDS TO STAY FOR EXTENDED ANTIBIOTICS IN [place]- SHE IS OKAY WITH THAT WELL. S/W PATIENT- HE IS AGREEABLE WELL TO THIS IF NEEDED Initialized on 07/16/23 14:29 - END OF NOTE Assessment/Plan (1) CHF (congestive heart failure) Current Visit: No Status: Acute Code(s): I50.9 - HEART FAILURE, UNSPECIFIED (2) SIRS (systemic inflammatory response syndrome) Current Visit: No Status: Resolved Assessment & Plan: No longer afebrile. Code(s): R65.10 - SIRS OF NON-INFECTIOUS ORIGIN W/O ACUTE ORGAN DYSFUNCTION (3) Leukocytosis Current Visit: No Status: Acute Assessment & Plan: Return to normal limits Code(s): D72.829 - ELEVATED WHITE BLOOD CELL COUNT, UNSPECIFIED (4) Chronic renal insufficiency Current Visit: No Status: Acute Assessment & Plan: Follows with Dr. Goetz Code(s): N18.9 - CHRONIC KIDNEY DISEASE, UNSPECIFIED (5) Sepsis due to cellulitis Current Visit: Yes Status: Acute Code(s): L03.90 - CELLULITIS, UNSPECIFIED; A41.9 - SEPSIS, UNSPECIFIED ORGANISM (6) Cellulitis of lower extremity Current Visit: Yes Status: Acute Assessment & Plan: doing well. Will plan for dressing change tomorrow. 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
--- NOTE | 2023-07-17 08:56 | XRAY ---
CLINICAL HISTORY: shortness of breath COMPARISON: X-ray dated 07/15/2023. TECHNIQUE: X-ray of the chest showing 1 view: AP semi erect view. FINDINGS: Interval worsening of the disease process seen as evident by increased airspace opacities in right upper and mid zone. Still noted left upper lung zone airspace opacities. Obliteration of left costophrenic angle seen likely due to pleural effusion. Bilateral prominent hilar shadows. Increased cardiac size (considering this AP view). The bony thorax is unremarkable. The right costophrenic and cardiophrenic angles are clear. A central venous line is noted with its tip seen at the right atrioventricular junction. IMPRESSION: Imaging findings are likely due to pulmonary infection and left pleural effusion with mild interval worsening in the disease process, would recommend clinical and lab correlation and follow-up chest x-ray. Electronically Signed by: Shaun King MD. (07/17/2023 08:51:11 EDT)
--- NOTE | 2023-07-17 10:57 | PCM.NOTE ---
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 Streeter podiatry and Dr. Silver SWANSON) presented to ED 07/15/23 experiencing nausea with dry heaves and fever Tmax 103 since yesterday. Patient reports that he has been getting outpatient Cubicin treatments for an infection of his left leg and foot but had to cancel due to how bad he was feeling.In ED vitals on arrival unremarkable. Patient is afebrile, normotensive, and spo2 is 92% on RA. CXR showing mild left base infiltrate/atelectasis/effusion. Labs showing leukocytosis with WBC at 12.4, creat at 2.67 which is near his baseline of 2.47 (patient follows with nephrology, Dr. Emery), lactic acid is 2.2. Patient received Ceftriaxone and Dapto in ED. Dr. Sheppard - KIKI consulted via telephone, recommends vancomycin/cefepime for further treatment. 07/16/23: Met with patient bedside. Endorses nausea has resolved. Mild temperature last night. Consultations with podiatry and ID, patient does have venous insufficiency BLE with ulceration. He arrived with Augustinaa maria eugeniaot to [facility] for compression therapy of this venous ulcer. Cultures with pseudomonas/MRSA. Per ID will treat with Vanc/Cefepime. Obtain blood cultures from PICC line. Denies fcp, abdominal pain, MCKEON, dizziness, N/V/D. 07/16: Patient doing better today. Afebrile overnight. Endorses some shortness of breath, CXR from this morning favoring infectious process as well as left pleural effusion. Patient is being treated with vanc/cefepime currently per ID recommendations. Creat improving. WBC now WNL. Blood cultures pending - taken from PICC yesterday. - Review of Systems Constitutional: No Symptoms Eyes: No Symptoms Ears, Nose, & Throat: No Symptoms Respiratory: Cough, Short Of Breath Cardiac: No Symptoms Abdominal/Gastrointestinal: No Symptoms Genitourinary Symptoms: No Symptoms Musculoskeletal: No Symptoms Skin: Cellulitis (BLE) Psychological: No Symptoms Endocrine: No Symptoms Hematologic/Lymphatic: No Symptoms Objective Exam General Appearance: no apparent distress Neurologic Exam: alert, oriented x 3, cooperative Skin Exam: normal color Wound Assessment: Skin/Wound Assessment Wound/Incision Assessment Start: 07/15/23 13:16 Text: Status: Active Freq: Q6H Protocol: Document 07/17/23 02:00 AF (Rec: 07/17/23 02:24 AF [id number]) Wound/Incision Assessment jordon lower extremities Wound Assessment Shift Assessment Wound Type cellulitis Wound Stage Non Pressure Wound Dressing Status Dry & Intact Comment BLE dressed by Dr. Streeter, in place CDI. Wound Photo Photo Taken Yes Date: 07/16/23 Time: 09:47 Eye Exam: PERRL Ears, Nose, Throat Exam: normal ENT inspection Neck Exam: full range of motion Respiratory Exam: crackles/rales Cardiovascular Exam: regular rate/rhythm, normal heart sounds Gastrointestinal/Abdomen Exam: soft, normal bowel sounds Extremity Exam: swelling (BLE trace) Back Exam: normal inspection Male Genitalia Exam: deferred Rectal Exam: deferred Objective Data Vital Signs: Vital Signs - 24 hr Temp Pulse Resp BP Pulse Ox 07/17/23 08:00 98.2 F 85 19 120/66 93 L 07/17/23 04:00 98.0 F 84 20 111/53 91 L 07/16/23 23:26 98.6 F 84 20 98/46 94 L 07/16/23 19:46 98.4 F 91 H 20 136/68 98 07/16/23 19:15 99 07/16/23 16:00 98.6 F 80 24 127/79 97 07/16/23 11:42 97.8 F 79 18 124/60 95 Pain Assessment - Last Documented Pain Intensity 0 Pain Scale Used 0-10 Pain Scale Intake and Output: Intake & Output 07/14/23 07/15/23 07/16/23 07/17/23 11:59 11:59 11:59 11:59 Intake Total 1050 1570 Output Total 910 Balance 1050 660 Weight 84.6 kg 86 kg 86 kg Lab Results: Lab Results-Last 24 Hours 07/17/23 07/17/23 Range/Units 05:37 05:37 WBC 6.9 (4.0-10.5) x10^3/uL RBC 3.30 L (4.1-5.6) x10^6/uL Hgb 9.3 L (12.5-18.0) g/dL Hct 29.7 L (42-50) % MCV 90.0 (78-100) fL MCH 28.2 (26-32) pg MCHC 31.3 L (32-36) g/dL RDW 15.8 H (11.5-14.0) % Plt Count 151 (150-450) x10^3/uL MPV 10.7 (7.5-11.0) fL Sodium 133 L (135-145) mmol/L Potassium 3.7 (3.5-5.1) mmol/L Chloride 102 (98-107) mmol/L Carbon Dioxide 23 (22-30) mmol/L Anion Gap 10.6 (5-15) MEQ/L BUN 48 H (9-20) mg/dL Creatinine 2.43 H (0.66-1.25) mg/dL Estimated GFR 25.3 ML/MIN Glucose 77 (74-106) mg/dL Calcium 8.9 (8.4-10.2) mg/dL Total Bilirubin 0.80 (0.2-1.3) mg/dL AST 21 (17-59) U/L ALT 11 (0-50) U/L Alkaline Phosphatase 65 (38-126) U/L NT-Pro-B Natriuret Pep 34863 (<300) pg/mL Serum Total Protein 6.0 L (6.3-8.2) g/dL Albumin 2.9 L (3.5-5.0) g/dL Radiology Exams: Radiology Procedures Category Date Time Status CHEST 1 VIEW (PORTABLE) Stat Exams 07/15/23 10:53 Completed CHEST 1 VIEW (PORTABLE) Stat Exams 07/17/23 07:47 Completed ECHO W/2D AND DOPPLER [US] Routine Exams 07/19/23 08:00 Ordered Multi-Disciplinary Progress Notes: Multi-Disciplinary Progress Notes 07/16/23 14:29 Case Management Note by Bettie Che Addendum entered by Bettie Che 07/16/23 14:33: PATIENT CURRENTLY ON 2L/NC- DOES NOT WEAR 24/7 AT HOME. PLACED [facility] ORDER SHEET IN OFFICE FOR PIN TICKET MACHINE OPERATOR IF 24 HR O2 NEEDED AT DC. PATIENT ALREADY HAS O2 AT THRU [facility] Original Note: S/W DAUGHTER EN- SHE DENIES ANY NEW NEEDS FOR PATIENT AT TIME OF DC. SHE IS IN THE PROCESS OF WORKING ON GETTING PATIENT MEDICAID TO CONTINUE TO PAY FOR HIS CAREGIVERS. SHE WAS NOTIFIED ACO CAN ASSIST HER WITH OPTIONS WELL. SHE WAS GIVEN THEIR PHONE NUMBER. SHE PLANS FOR PATIENT TO RETURN HOME TO HIS APARTMENT WITH CAREGIVERS AT TIME OF DC. SHE REPORTS IF PATIENT NEEDS TO STAY FOR EXTENDED ANTIBIOTICS IN [place]- SHE IS OKAY WITH THAT WELL. S/W PATIENT- HE IS AGREEABLE WELL TO THIS IF NEEDED Initialized on 07/16/23 14:29 - END OF NOTE Assessment/Plan (1) Cellulitis of lower extremity Current Visit: Yes Status: Acute Assessment & Plan: -Patient with PICC receiving OP infusion of Cubicin -left foot culture positive for Pseudomonas/MRSA. Spoke with Dr. Silver SWANSON - advised vanc/cefepime -Blood cultures pending -ordered for a set to be done from PICC line (2) Infiltrate noted on imaging study Current Visit: Yes Status: Acute Assessment & Plan: -CXR reviewed showing worsening mild left base infiltrate/atelectasis/effusion, will get procal/nasal swab for MRSA -Supplemental oxygen for spo2 goal 88-92% - baseline is 2L QHS -RT eval -NEB/bronch -IS 07/16/23: -Continue van/cefe -wean oxygen Code(s): R93.89 - ABNORMAL FINDINGS ON DX IMAGING OF OTH BODY STRUCTURES (3) Leukocytosis Current Visit: Yes Status: Acute Assessment & Plan: -secondary to left foot infection, ?pneumonia -Vanc/unasyn per ID -procal -Blood cultures pending -Does not meet sepsis/sirs criteria 07/15: -resolved Code(s): D72.829 - ELEVATED WHITE BLOOD CELL COUNT, UNSPECIFIED (4) Anemia, chronic renal failure Current Visit: Yes Status: Acute Assessment & Plan: -at baseline hgb of 9.3 secondary to chronic renal disease -Continue to monitor Code(s): N18.9 - CHRONIC KIDNEY DISEASE, UNSPECIFIED; D63.1 - ANEMIA IN CHRONIC KIDNEY DISEASE (5) Acute on chronic renal failure Current Visit: No Status: Acute Qualifiers: Acute renal failure type: unspecified Chronic kidney disease stage: stage 3 (moderate) Assessment & Plan: -Baseline creat around 2.4 - follows with Dr. Emery -improving since admission, now at 2.43<2.55<2.67 -Avoid MEET/ARB/NSAIDS Code(s): N17.9 - ACUTE KIDNEY FAILURE, UNSPECIFIED; N18.9 - CHRONIC KIDNEY DISEASE, UNSPECIFIED (6) CHF (congestive heart failure) Current Visit: No Status: Acute Assessment & Plan: -No recent echo on file -BNP -Monitor renal/lytes Keep K>4, Mg >2 -daily weights -Strict I&O 07/15: -Hold torsemide for now with STEPHANY 07/16: -BNP elevated in the setting of renal insufficiency, Echo pending, mild edema noted on BLE Code(s): I50.9 - HEART FAILURE, UNSPECIFIED (7) Diabetes type 2, controlled Current Visit: No Status: Chronic Qualifiers: Diabetes mellitus ad terminal makeup operator insulin use: with ad terminal makeup operator use Diabetes mellitus complication status: with skin complications Diabetes mellitus complication detail: with other skin complication Qualified Code(s): E11.628 - Type 2 diabetes mellitus with other skin complications; Z79.4 - detention (current) use of insulin Assessment & Plan: -ADA diet -SSI -lantus -SSI -Hold Farxiga VTE: xarelto PPI: protonix Dispo 1-2 days (2) Infiltrate noted on imaging study Current Visit: Yes Status: Acute Code(s): R93.89 - ABNORMAL FINDINGS ON DX IMAGING OF OTH BODY STRUCTURES (3) Leukocytosis Current Visit: Yes Status: Acute Code(s): D72.829 - ELEVATED WHITE BLOOD CELL COUNT, UNSPECIFIED (4) Anemia, chronic renal failure Current Visit: Yes Status: Acute Code(s): N18.9 - CHRONIC KIDNEY DISEASE, UNSPECIFIED; D63.1 - ANEMIA IN CHRONIC KIDNEY DISEASE (5) Acute on chronic renal failure Current Visit: No Status: Acute Qualifiers: Acute renal failure type: unspecified Chronic kidney disease stage: stage 3 (moderate) Code(s): N17.9 - ACUTE KIDNEY FAILURE, UNSPECIFIED; N18.9 - CHRONIC KIDNEY DISEASE, UNSPECIFIED (6) CHF (congestive heart failure) Current Visit: No Status: Acute Code(s): I50.9 - HEART FAILURE, UNSPECIFIED (7) Diabetes type 2, controlled Current Visit: No Status: Chronic Qualifiers: Diabetes mellitus detention insulin use: with detention use Diabetes mellitus complication status: with skin complications Diabetes mellitus complication detail: with other skin complication Qualified Code(s): E11.628 - Type 2 diabetes mellitus with other skin complications; Z79.4 - detention (current) use of insulin Code(s): E11.9 - TYPE 2 DIABETES MELLITUS WITHOUT COMPLICATIONS (8) HTN (hypertension) Current Visit: Yes Status: Acute Code(s): I10 - ESSENTIAL (PRIMARY) HYPERTENSION
[2023-07-18 05:35] LABS: Hematocrit 29.8 % (42-50); Hemoglobin 9.1 g/dL (12.5-18.0); Mean Cell Volume 89.5 fL (78-100); Mean Corpuscular Hemoglobin 27.3 pg (26-32); Mean Corpuscular Hgb Concent. 30.5 g/dL (32-36); Mean Platelet Volume 10.5 fL (7.5-11.0); Platelet Count 152 x10^3/uL (150-450); Red Blood Count 3.33 x10^6/uL (4.1-5.6); Red Cell Distribution Width 15.7 % (11.5-14.0); White Blood Count 5.4 x10^3/uL (4.0-10.5)
[2023-07-18 05:54] LABS: ALBUMIN 2.7 g/dL (3.5-5.0); ANION GAP 12.2 MEQ/L (5-15); BILIRUBIN,TOTAL 0.7 mg/dL (0.2-1.3); Calcium 8.9 mg/dL (8.4-10.2); Creatinine 1 2.4 mg/dL (0.66-1.25); EST GLOMERULAR FILTRATION RATE 25.6 ML/MIN; Potassium 3.9 mmol/L (3.5-5.1); Total Protein 5.9 g/dL (6.3-8.2)
--- NOTE | 2023-07-18 10:04 | PCM.NOTE ---
Date and Time: 07/18/23 0959 Subjective Assessment: Patient sen at bedside with nursing staff present. Patient admits to feeling better this AM. Patient anticipates d/c tomorrow. No new constitutional symptoms of infection. No new complaints. Physical Exam - General General Appearance: no apparent distress - Neuro Neurologic: Epicritic and protopathic - Vascular Peripheral Pulses: Posterior tibialis: 2+, Dorsalis-Pedis: 2+ Capillary Refill Time: < 3 seconds Hair Growth: Symmetrical and Bilateral Varicosities: Positive Edema: Pitting Edema Degree: 1+ Skin: Supple, not atrophic Skin Temperature: Warm to touch - Muscular Foot Type: TMA RLE - Narrative Narrative Physical Exam: Podiatry Physical Exam Objective Data Vital Signs: Vital Signs - 24 hr Temp Pulse Resp BP Pulse Ox 07/18/23 08:00 98.5 F 85 17 131/63 92 L 07/18/23 07:58 92 L 07/18/23 04:00 98.7 F 94 H 16 134/66 93 L 07/17/23 23:49 98.8 F 87 18 120/70 95 07/17/23 20:00 97.8 F 89 19 129/62 95 07/17/23 19:35 90 L 07/17/23 16:00 97.8 F 90 19 136/65 96 07/17/23 12:00 97.5 F 92 H 18 120/58 92 L Pain Assessment - Last Documented Pain Intensity 0 Pain Scale Used 0-10 Pain Scale Intake and Output: Intake & Output 07/15/23 07/16/23 07/17/23 07/18/23 11:59 11:59 11:59 11:59 Intake Total 1050 1570 1120 Output Total 910 1100 Balance 1050 660 20 Weight 84.6 kg 86 kg 86 kg Lab Results: Lab Results-Last 24 Hours 07/17/23 07/18/23 07/18/23 Range/Units 21:38 05:19 05:19 WBC 5.4 (4.0-10.5) x10^3/uL RBC 3.33 L (4.1-5.6) x10^6/uL Hgb 9.1 L (12.5-18.0) g/dL Hct 29.8 L (42-50) % MCV 89.5 (78-100) fL MCH 27.3 (26-32) pg MCHC 30.5 L (32-36) g/dL RDW 15.7 H (11.5-14.0) % Plt Count 152 (150-450) x10^3/uL MPV 10.5 (7.5-11.0) fL Sodium 133 L (135-145) mmol/L Potassium 3.9 (3.5-5.1) mmol/L Chloride 104 (98-107) mmol/L Carbon Dioxide 20 L (22-30) mmol/L Anion Gap 12.2 (5-15) MEQ/L BUN 49 H (9-20) mg/dL Creatinine 2.40 H (0.66-1.25) mg/dL Estimated GFR 25.6 ML/MIN Glucose 136 H (74-106) mg/dL POC Glucometer 198 H (74 to 106) mg/dL Calcium 8.9 (8.4-10.2) mg/dL Total Bilirubin 0.70 (0.2-1.3) mg/dL AST 19 (17-59) U/L ALT 11 (0-50) U/L Alkaline Phosphatase 64 (38-126) U/L Serum Total Protein 5.9 L (6.3-8.2) g/dL Albumin 2.7 L (3.5-5.0) g/dL Radiology Exams: Radiology Procedures Category Date Time Status CHEST 1 VIEW (PORTABLE) Stat Exams 07/17/23 07:47 Completed ECHO W/2D AND DOPPLER [US] Routine Exams 07/19/23 08:00 Ordered Assessment/Plan (1) CHF (congestive heart failure) Current Visit: No Status: Acute Code(s): I50.9 - HEART FAILURE, UNSPECIFIED (2) SIRS (systemic inflammatory response syndrome) Current Visit: No Status: Resolved Assessment & Plan: Resolved Code(s): R65.10 - SIRS OF NON-INFECTIOUS ORIGIN W/O ACUTE ORGAN DYSFUNCTION (3) Leukocytosis Current Visit: No Status: Acute Assessment & Plan: Resolved Code(s): D72.829 - ELEVATED WHITE BLOOD CELL COUNT, UNSPECIFIED (4) Chronic renal insufficiency Current Visit: No Status: Acute Code(s): N18.9 - CHRONIC KIDNEY DISEASE, UNSPECIFIED (5) Sepsis due to cellulitis Current Visit: Yes Status: Acute Code(s): L03.90 - CELLULITIS, UNSPECIFIED; A41.9 - SEPSIS, UNSPECIFIED ORGANISM (6) Cellulitis of lower extremity Current Visit: Yes Status: Acute Assessment & Plan: Cellulitis resolved. BLE brawny edema with exfoliative changes. Will continue with compression therapy at this time until blood cultures returned. Psuedomonas growing ID with recommendations for Cefipime/ Vanco combination.. Pseudomonas component is chronic with exacerbations of venous insuffiency secondary to CHF. Bilateral multilayer compression dressings applied Will monitor on outpatient basis once acute process resolved. (7) Diabetes type 2, controlled Current Visit: No Status: Chronic Qualifiers: Diabetes mellitus long term care pharmacist insulin use: with long term care pharmacist use Diabetes mellitus complication status: with skin complications Diabetes mellitus complication detail: with other skin complication Qualified Code(s): E11.628 - Type 2 diabetes mellitus with other skin complications; Z79.4 - continuous churn buttermaker (current) use of insulin Code(s): E11.9 - TYPE 2 DIABETES MELLITUS WITHOUT COMPLICATIONS
--- NOTE | 2023-07-18 10:14 | PCM.NOTE ---
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 Streeter podiatry and Dr. Sliver SWANSON) presented to ED 07/15/23 experiencing nausea with dry heaves and fever Tmax 103 since yesterday. Patient reports that he has been getting outpatient Cubicin treatments for an infection of his left leg and foot but had to cancel due to how bad he was feeling.In ED vitals on arrival unremarkable. Patient is afebrile, normotensive, and spo2 is 92% on RA. CXR showing mild left base infiltrate/atelectasis/effusion. Labs showing leukocytosis with WBC at 12.4, creat at 2.67 which is near his baseline of 2.47 (patient follows with nephrology, Dr. Emery), lactic acid is 2.2. Patient received Ceftriaxone and Dapto in ED. Dr. Sheppard - KIKI consulted via telephone, recommends vancomycin/cefepime for further treatment. 07/16/23: Met with patient bedside. Endorses nausea has resolved. Mild temperature last night. Consultations with podiatry and ID, patient does have venous insufficiency BLE with ulceration. He arrived with Augustinaa maria eugeniaot to [facility] for compression therapy of this venous ulcer. Cultures with pseudomonas/MRSA. Per ID will treat with Vanc/Cefepime. Obtain blood cultures from PICC line. Denies fcp, abdominal pain, MCKEON, dizziness, N/V/D. 07/16: Patient doing better today. Afebrile overnight. Endorses some shortness of breath, CXR from this morning favoring infectious process as well as left pleural effusion. Patient is being treated with vanc/cefepime currently per ID recommendations. Creat improving. WBC now WNL. Blood cultures pending - taken from PICC yesterday. 07/17: Patient remains afebrile. Dyspnea improved. No overnight events. No new c omplaints. Discharge pending culture results. Will confer with ID once results obtained. Plan to continue current management with vanc/cefepime. Podiatry note reviewed, cellulitis has resoved. Plan to continue compression therapy.Pseudomonas component is chronic with exacerbations of venous insuffiency secondary to CHF. Patient able to follow up with podiatry as OP. - Review of Systems Constitutional: No Symptoms Eyes: No Symptoms Ears, Nose, & Throat: No Symptoms Respiratory: Cough, Short Of Breath Cardiac: Edema Abdominal/Gastrointestinal: No Symptoms Genitourinary Symptoms: No Symptoms Musculoskeletal: No Symptoms Skin: Cellulitis (BLE) Neurological: No Symptoms Psychological: No Symptoms Endocrine: No Symptoms Hematologic/Lymphatic: No Symptoms Immunological/Allergic: No Symptoms Objective Exam General Appearance: no apparent distress Neurologic Exam: alert, oriented x 3, cooperative Skin Exam: other (see wound assessment) Wound Assessment: Skin/Wound Assessment Wound/Incision Assessment Start: 07/15/23 13:16 Text: Status: Active Freq: Q6H Protocol: Document 07/18/23 08:00 KD (Rec: 07/18/23 09:24 KD [id number]) Wound/Incision Assessment jordon lower extremities Wound Assessment Shift Assessment Wound Type cellulitis Wound Stage Non Pressure Wound Dressing Status Dry & Intact Drainage Amount Minimal Comment BLE redressed by Dr. Streeter, [facility]. Wound Photo Photo Taken Yes Date: 07/16/23 Time: 09:47 Ears, Nose, Throat Exam: moist mucous membranes Neck Exam: full range of motion Respiratory Exam: crackles/rales Cardiovascular Exam: regular rate/rhythm, normal heart sounds Gastrointestinal/Abdomen Exam: soft, normal bowel sounds Extremity Exam: other (BLE edema) Back Exam: normal inspection Male Genitalia Exam: deferred Rectal Exam: deferred Objective Data Vital Signs: Vital Signs - 24 hr Temp Pulse Resp BP Pulse Ox 07/18/23 08:00 98.5 F 85 17 131/63 92 L 07/18/23 07:58 92 L 07/18/23 04:00 98.7 F 94 H 16 134/66 93 L 07/17/23 23:49 98.8 F 87 18 120/70 95 07/17/23 20:00 97.8 F 89 19 129/62 95 07/17/23 19:35 90 L 07/17/23 16:00 97.8 F 90 19 136/65 96 07/17/23 12:00 97.5 F 92 H 18 120/58 92 L Pain Assessment - Last Documented Pain Intensity 0 Pain Scale Used 0-10 Pain Scale Intake and Output: Intake & Output 07/15/23 07/16/23 07/17/23 07/18/23 11:59 11:59 11:59 11:59 Intake Total 1050 1570 1120 Output Total 910 1100 Balance 1050 660 20 Weight 84.6 kg 86 kg 86 kg Lab Results: Lab Results-Last 24 Hours 07/17/23 07/18/23 07/18/23 Range/Units 21:38 05:19 05:19 WBC 5.4 (4.0-10.5) x10^3/uL RBC 3.33 L (4.1-5.6) x10^6/uL Hgb 9.1 L (12.5-18.0) g/dL Hct 29.8 L (42-50) % MCV 89.5 (78-100) fL MCH 27.3 (26-32) pg MCHC 30.5 L (32-36) g/dL RDW 15.7 H (11.5-14.0) % Plt Count 152 (150-450) x10^3/uL MPV 10.5 (7.5-11.0) fL Sodium 133 L (135-145) mmol/L Potassium 3.9 (3.5-5.1) mmol/L Chloride 104 (98-107) mmol/L Carbon Dioxide 20 L (22-30) mmol/L Anion Gap 12.2 (5-15) MEQ/L BUN 49 H (9-20) mg/dL Creatinine 2.40 H (0.66-1.25) mg/dL Estimated GFR 25.6 ML/MIN Glucose 136 H (74-106) mg/dL POC Glucometer 198 H (74 to 106) mg/dL Calcium 8.9 (8.4-10.2) mg/dL Total Bilirubin 0.70 (0.2-1.3) mg/dL AST 19 (17-59) U/L ALT 11 (0-50) U/L Alkaline Phosphatase 64 (38-126) U/L Serum Total Protein 5.9 L (6.3-8.2) g/dL Albumin 2.7 L (3.5-5.0) g/dL Radiology Exams: Radiology Procedures Category Date Time Status CHEST 1 VIEW (PORTABLE) Stat Exams 07/17/23 07:47 Completed ECHO W/2D AND DOPPLER [US] Routine Exams 07/19/23 08:00 Ordered Assessment/Plan (1) Cellulitis of lower extremity Current Visit: Yes Status: Acute Assessment & Plan: -Patient with PICC receiving OP infusion of Cubicin -left foot culture positive for Pseudomonas/MRSA. Spoke with Dr. Silver SWANSON - advised vanc/cefepime -Blood cultures pending -ordered for a set to be done from PICC line 07/17: -Blood cultures pending (2) Infiltrate noted on imaging study Current Visit: Yes Status: Acute Assessment & Plan: -CXR reviewed showing worsening mild left base infiltrate/atelectasis/effusion, will get procal/nasal swab for MRSA -Supplemental oxygen for spo2 goal 88-92% - baseline is 2L QHS -RT eval -NEB/bronch -IS 07/16/23: -Continue van/cefe -wean oxygen 07/17: CXR 07/16 with are likely due to pulmonary infection and left pleural effusion with mild interval worsening in the disease process, -continue cefepime/vanc -resume home torsemide -IS Code(s): R93.89 - ABNORMAL FINDINGS ON DX IMAGING OF OTH BODY STRUCTURES (3) Leukocytosis Current Visit: Yes Status: Acute Assessment & Plan: -secondary to left foot infection, ?pneumonia -Vanc/unasyn per ID -procal -Blood cultures pending -Does not meet sepsis/sirs criteria 07/15: -resolved Code(s): D72.829 - ELEVATED WHITE BLOOD CELL COUNT, UNSPECIFIED (4) Anemia, chronic renal failure Current Visit: Yes Status: Acute Assessment & Plan: -at baseline hgb of 9.3 secondary to chronic renal disease -Continue to monitor Code(s): N18.9 - CHRONIC KIDNEY DISEASE, UNSPECIFIED; D63.1 - ANEMIA IN CHRONIC KIDNEY DISEASE (5) Acute on chronic renal failure Current Visit: No Status: Acute Qualifiers: Acute renal failure type: unspecified Chronic kidney disease stage: stage 3 (moderate) Assessment & Plan: -Baseline creat around 2.4 - follows with Dr. Emery -improving since admission, now at 2.40<2.43<2.55<2.67 -Avoid MEET/ARB/NSAIDS -resume home torsemide Code(s): N17.9 - ACUTE KIDNEY FAILURE, UNSPECIFIED; N18.9 - CHRONIC KIDNEY DISEASE, UNSPECIFIED (6) CHF (congestive heart failure) Current Visit: No Status: Acute Assessment & Plan: -No recent echo on file -BNP -Monitor renal/lytes Keep K>4, Mg >2 -daily weights -Strict I&O 07/15: -Hold torsemide for now with STEPHANY 07/16: -BNP elevated in the setting of renal insufficiency, Echo pending, mild edema noted on BLE Code(s): I50.9 - HEART FAILURE, UNSPECIFIED (7) Diabetes type 2, controlled Current Visit: No Status: Chronic Qualifiers: Diabetes mellitus buttermaker insulin use: with buttermaker use Diabetes mellitus complication status: with skin complications Diabetes mellitus complication detail: with other skin complication Qualified Code(s): E11.628 - Type 2 diabetes mellitus with other skin complications; Z79.4 - rat exterminator (current) use of insulin Assessment & Plan: -ADA diet -SSI -lantus -SSI -Hold Farxiga VTE: xarelto PPI: protonix Dispo 1-2 days (2) Infiltrate noted on imaging study Current Visit: Yes Status: Acute Code(s): R93.89 - ABNORMAL FINDINGS ON DX IMAGING OF OTH BODY STRUCTURES (3) Leukocytosis Current Visit: Yes Status: Acute Code(s): D72.829 - ELEVATED WHITE BLOOD CELL COUNT, UNSPECIFIED (4) Anemia, chronic renal failure Current Visit: Yes Status: Acute Code(s): N18.9 - CHRONIC KIDNEY DISEASE, UNSPECIFIED; D63.1 - ANEMIA IN CHRONIC KIDNEY DISEASE (5) Acute on chronic renal failure Current Visit: No Status: Acute Qualifiers: Acute renal failure type: unspecified Chronic kidney disease stage: stage 3 (moderate) Code(s): N17.9 - ACUTE KIDNEY FAILURE, UNSPECIFIED; N18.9 - CHRONIC KIDNEY DISEASE, UNSPECIFIED (6) CHF (congestive heart failure) Current Visit: No Status: Acute Code(s): I50.9 - HEART FAILURE, UNSPECIFIED (7) Diabetes type 2, controlled Current Visit: No Status: Chronic Qualifiers: Diabetes mellitus half-way insulin use: with buttermaker use Diabetes me llitus complication status: with skin complications Diabetes mellitus complication detail: with other skin complication Qualified Code(s): E11.628 - Type 2 diabetes mellitus with other skin complications; Z79.4 - rat exterminator (current) use of insulin Code(s): E11.9 - TYPE 2 DIABETES MELLITUS WITHOUT COMPLICATIONS (8) HTN (hypertension) Current Visit: Yes Status: Acute Code(s): I10 - ESSENTIAL (PRIMARY) HYPERTE NSION
[2023-07-18] MEDS: DEMADEX 20 MG PO SCH (10:32)
[2023-07-18] MEDS ORDERED: NON-FORMULARY ITEM (Torsemide [Torsemide] 100 MG Tablet) PO SCH (22:00)
[2023-07-19] MEDS: TROUGH DRUG LEVELS IJ ONE (00:25)
[2023-07-19 04:51] LABS: Hematocrit 30.3 % (42-50); Hemoglobin 9.5 g/dL (12.5-18.0); Mean Cell Volume 88.9 fL (78-100); Mean Corpuscular Hemoglobin 27.9 pg (26-32); Mean Corpuscular Hgb Concent. 31.4 g/dL (32-36); Mean Platelet Volume 10.5 fL (7.5-11.0); Platelet Count 130 x10^3/uL (150-450); Red Blood Count 3.41 x10^6/uL (4.1-5.6); Red Cell Distribution Width 15.6 % (11.5-14.0)
[2023-07-19 05:15] LABS: ALBUMIN 2.8 g/dL (3.5-5.0); ANION GAP 11.9 MEQ/L (5-15); BILIRUBIN,TOTAL 0.7 mg/dL (0.2-1.3); Calcium 8.7 mg/dL (8.4-10.2); Creatinine 1 2.44 mg/dL (0.66-1.25); EST GLOMERULAR FILTRATION RATE 25.1 ML/MIN; Potassium 3.7 mmol/L (3.5-5.1)
--- NOTE | 2023-07-19 08:34 | PCM.DS ---
Discharge Summary Date of Admission: 07/15/23 13:51 Date of Discharge: 07/19/23 Admitting Physician: WILLARD RHODES MD Consults: Consults on Case 07/15/23 16:30 Consult Podiatry ROUTINE Primary Care Provider: ZAN CHOWDHURY Allergies Allergies sulfamethoxazole [From Bactrim] Allergy (Intermediate, Verified 07/15/23 10:27) Swelling trimethoprim [From Bactrim] Allergy (Intermediate, Verified 07/15/23 10:27) Swelling Sulfa (Sulfonamide Antibiotics) Adverse Reaction (Intermediate, Verified 07/15/23 10:27) Swelling Hospital Summary - Hospital Course Hospital Course: is a 87 year old male with a pmhx of DM,CHF, [place] HTN, HLD, CVA, 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 Streeter podiatry and Dr. Angel ID) presented to ED 07/15/23 experiencing nausea with dry heaves and fever Tmax 103. Patient reported that he has been getting outpatient Cubicin treatments for an infection of his left leg and foot but had to cancel due to how bad he was feeling. Since admission on 07/14 pt has been receiving IV antibiotics and torsemide. Blood cultures all negative, even one from picc line. ID recommends vantin and doxycycline OP antibiotics. He is requiring O2 3lNC day and night per RT eval. CM to set up for OP. Pt otherwise doing well and would like to d/c today. - Vitals & Intake/Output Vital Signs: Vital Signs Temperature 98.2 F 07/19/23 04:00 Pulse Rate 87 07/19/23 04:00 Respiratory Rate 14 07/19/23 04:00 Blood Pressure 122/78 07/19/23 04:00 O2 Sat by Pulse Oximetry 92 L 07/19/23 07:11 Intake & Output: Intake & Output 07/16/23 07/17/23 07/18/23 07/19/23 11:59 11:59 11:59 11:59 Intake Total 1050 1570 1480 960 Output Total 910 1450 1375 Balance 1050 660 30 -415 Weight 86 kg 86 kg - Lab Result Diagrams: 07/19/23 04:45 07/19/23 04:45 Lab Results-Last 24 Hrs: Lab Results-Last 24 Hours 07/18/23 07/18/23 07/19/23 Range/Units 22:30 22:37 04:45 WBC 6.0 (4.0-10.5) x10^3/uL RBC 3.41 L (4.1-5.6) x10^6/uL Hgb 9.5 L (12.5-18.0) g/dL Hct 30.3 L (42-50) % MCV 88.9 (78-100) fL MCH 27.9 (26-32) pg MCHC 31.4 L (32-36) g/dL RDW 15.6 H (11.5-14.0) % Plt Count 130 L (150-450) x10^3/uL MPV 10.5 (7.5-11.0) fL Sodium (135-145) mmol/L Potassium (3.5-5.1) mmol/L Chloride (98-107) mmol/L Carbon Dioxide (22-30) mmol/L Anion Gap (5-15) MEQ/L BUN (9-20) mg/dL Creatinine (0.66-1.25) mg/dL Estimated GFR ML/MIN Glucose (74-106) mg/dL POC Glucometer 180 H (74 to 106) mg/dL Calcium (8.4-10.2) mg/dL Total Bilirubin (0.2-1.3) mg/dL AST (17-59) U/L ALT (0-50) U/L Alkaline Phosphatase (38-126) U/L Serum Total Protein (6.3-8.2) g/dL Albumin (3.5-5.0) g/dL Vancomycin Trough 10.55 (10-20) ug/mL 07/19/23 Range/Units 04:45 WBC (4.0-10.5) x10^3/uL RBC (4.1-5.6) x10^6/uL Hgb (12.5-18.0) g/dL Hct (42-50) % MCV (78-100) fL MCH (26-32) pg MCHC (32-36) g/dL RDW (11.5-14.0) % Plt Count (150-450) x10^3/uL MPV (7.5-11.0) fL Sodium 134 L (135-145) mmol/L Potassium 3.7 (3.5-5.1) mmol/L Chloride 104 (98-107) mmol/L Carbon Dioxide 22 (22-30) mmol/L Anion Gap 11.9 (5-15) MEQ/L BUN 50 H (9-20) mg/dL Creatinine 2.44 H (0.66-1.25) mg/dL Estimated GFR 25.1 ML/MIN Glucose 181 H (74-106) mg/dL POC Glucometer (74 to 106) mg/dL Calcium 8.7 (8.4-10.2) mg/dL Total Bilirubin 0.70 (0.2-1.3) mg/dL AST 21 (17-59) U/L ALT 13 (0-50) U/L Alkaline Phosphatase 67 (38-126) U/L Serum Total Protein 6.0 L (6.3-8.2) g/dL Albumin 2.8 L (3.5-5.0) g/dL Vancomycin Trough (10-20) ug/mL Micro Results-Entire Visit: Microbiology 07/16/23 10:50 Blood Culture - Preliminary Blood 07/15/23 11:16 Blood Culture - Preliminary Blood 07/15/23 10:25 Blood Culture - Preliminary Blood Accuchecks Date 07/18/23 Date 07/18/23 Time 16:50 Time 11:51 - Radiology Exams Ordered Rad Exams-Entire Visit: Radiology Procedures Category Date Time Status CHEST 1 VIEW (PORTABLE) Stat Exams 07/17/23 07:47 Completed ECHO W/2D AND DOPPLER [US] Routine Exams 07/19/23 08:00 Ordered - Procedures and Test Procedures and Tests throughout Hospitalization: Therapy Orders & Screens 07/15/23 12:55 Respiratory Therapy Assessment DAILY Comment: 07/15/23 13:13 Oxygen Nasal Cannula 2 lpm Comment: Respiratory Therapy Consult ONCE Comment: Reason For Exam: 07/15/23 13:35 OT Screen per Nursing Assess ONCE Comment: Protocol Order Physician Instructions: Greater than 3 points order OT Admission Screening Reason For Exam: Triggered on Admission Diagnosis: LOWER EXTREMITY CELLULITIS, PNEUMONIA, SEPSIS Open Wound/Cellutlitis/Pressure Ulcers: Yes Acute Fx/ORIF/Change in wt bearing status: No Severe MUSCULOSKELETAL pain: No ADL Dysfunction: No Acute CVA w/Hemiparesis/Hemiplegia: No Decreased Functional Mobility/Strength: No Sprain/Strain: No Acute Post-op Mobility Dysfunction: No Total Points: 5 PT Screen per Nursing Assess ONCE Comment: Protocol Order Physician Instructions: Greater than 3 points order PT Admission Screenin Reason For Exam: Triggered on Admission Diagnosis: LOWER EXTREMITY CELLULITIS, PNEUMONIA, SEPSIS Open Wound/Cellutlitis/Pressure Ulcers: Yes Acute Fx/ORIF/Change in wt bearing status: No Severe MUSCULOSKELETAL pain: No ADL Dysfunction: No Acute CVA w/Hemiparesis/Hemiplegia: No Decreased Functional Mobility/Strength: No Sprain/Strain: No Acute Post-op Mobility Dysfunction: No Total Points: 5 RT Screen per Nursing Assess ONCE Comment: Protocol Order Physician Instructions: Greater than 3 points order RT Admission Screen Reason For Exam: Triggered on Admission Diagnosis: LOWER EXTREMITY CELLULITIS, PNEUMONIA, SEPSIS Diagnosis: LOWER EXTREMITY CELLULITIS, PNEUMONIA, SEPSIS Pneumonia: Yes Home O2: Yes: 2L HS Asthma: No CHF: No Home CPAP/BIPAP: No Home Nebs/MDI: No Total Points: 8 ST Screen per Nursing Assess ONCE Comment: Protocol Order Physician Instructions: Greater than [address] Admission Screening Reason For Exam: Triggered on Admission Diagnosis: LOWER EXTREMITY CELLULITIS, PNEUMONIA, SEPSIS CVA/Dyshpagia/Aphasia: No Cognitive Deficits: No Dehydration/Nutrition Deficit: No Reflux: No Oral-Motor Difficulties: No Pneumonia: Yes Usp Resident: No Total Points: 5 07/15/23 14:49 PT Eval & Treat (MD Order) ONCE Reason for Eval:: weakness Diagnosis: LOWER EXTREMITY CELLULITIS, PNEUMONIA, SEPSIS Incentive Spirometry UD Comment: Diagnosis: LOWER EXTREMITY CELLULITIS, PNEUMONIA, SEPSIS Respiratory Therapy Consult ONCE Comment: Reason For Exam: Diagnosis: LOWER EXTREMITY CELLULITIS, PNEUMONIA, SEPSIS Discharge Exam General Appearance: no apparent distress, alert Neurologic Exam: alert, oriented x 3, cooperative, normal mood/affect, nml cerebellar function, sensation nml, No motor deficits Eye Exam: PERRL, EOMI, eyes nml inspection Ears, Nose, Throat Exam: normal ENT inspection, pharynx normal, moist mucous membranes Neck Exam: normal inspection, non-tender, supple, full range of motion Respiratory Exam: normal breath sounds, lungs clear, No respiratory distress Cardiovascular Exam: regular rate/rhythm, normal heart sounds Gastrointestinal/Abdomen Exam: soft, No tenderness, No mass Male Genitalia Exam: deferred Rectal Exam: deferred Back Exam: normal inspection, normal range of motion, No CVA tenderness, No vertebral tenderness Extremity Exam: normal inspection, normal range of motion Skin Exam: normal color, warm, dry Wound Assessment: Skin/Wound Assessment Wound/Incision Assessment Start: 07/15/23 13:16 Text: Status: Active Freq: Q6H Protocol: Document 07/19/23 02:00 AF (Rec: 07/19/23 02:09 AF [id number]) Wound/Incision Assessment jordon lower extremities Wound Assessment Shift Assessment Wound Type cellulitis Wound Stage Non Pressure Wound Dressing Status Dry & Intact Drainage Amount Minimal Comment BLE redressed by Dr. Streeter, [facility]. Wound Photo Photo Taken Yes Date: 07/16/23 Time: 09:47 Final Diagnosis/Problem List - Final Discharge Diagnosis/Problem (1) Cellulitis of lower extremity Current Visit: Yes Status: Resolved Assessment & Plan: - resolved with IV antibiotics - BC all negative - OP antibiotics per ID recs. (2) Pneumonia Current Visit: Yes Status: Acute Assessment & Plan: - on 3LNC O2- 92% day and night per RT eval - previously on 2NC at night - D/C with doxy for pneumonia - CXR 07/16 IMPRESSION: Imaging findings are likely due to pulmonary infection and left pleural effusion with mild interval worsening in the disease process, would recommend clinical and lab correlation and follow-up chest x-ray Code(s): J18.9 - PNEUMONIA, UNSPECIFIED ORGANISM (3) Anemia, chronic renal failure Current Visit: Yes Status: Chronic Assessment & Plan: - Hgb 9.5 - stable - Creat at baseline Code(s): N18.9 - CHRONIC KIDNEY DISEASE, UNSPECIFIED; D63.1 - ANEMIA IN CHRONIC KIDNEY DISEASE (4) Leukocytosis Current Visit: Yes Status: Resolved Assessment & Plan: - resolved Code(s): D72.829 - ELEVATED WHITE BLOOD CELL COUNT, UNSPECIFIED (5) Acute on chronic renal failure Current Visit: No Status: Acute Assessment & Plan: - at baseline renal function Code(s): N17.9 - ACUTE KIDNEY FAILURE, UNSPECIFIED; N18.9 - CHRONIC KIDNEY DISEASE, UNSPECIFIED (6) CHF (congestive heart failure) Current Visit: No Status: Acute Assessment & Plan: - continue torsemide - Echo- 51% per technology infusion specialist - will need to f/u with cardiology Op. Code(s): I50.9 - HEART FAILURE, UNSPECIFIED (7) Uncontrolled type II diabetes mellitus Current Visit: Yes Status: Chronic Assessment & Plan: - A1C 8.04 -ADA diet -lantus -SSI -Hold [facility] Code(s): GSZ3222 - (8) MRSA nasal colonization Current Visit: Yes Status: Acute Assessment & Plan: - Mupirocin BID nares Code(s): Z22.322 - CARRIER OR SUSPECTED CARRIER OF METHICILLIN RESIS STAPH (9) Wound of left foot Current Visit: Yes Status: Chronic Assessment & Plan: - chronic- follows ID Dr. Ritchie and podiatry Dr. Streeter - Per ID continue Doxy and Vantin BID x7 days and follow up OP - BC all negative. Code(s): S91.302A - UNSPECIFIED OPEN WOUND, LEFT FOOT, INITIAL ENCOUNTER - Discharge Discharge Date: 07/19/23 Disposition: Home, Self-Care Condition: Stable Prescriptions: New Mupirocin [Bactroban OINTMENT] 0 gm TP BID 5 Days #1 applic Cefpodoxime Proxetil 200 mg [Vantin 200 mg] 200 mg PO BID 7 Days #14 tablet Doxycycline Hyclate 100 mg [Vibramycin 100 MG] 100 mg PO BID 7 Days #14 tab Continue Insulin Glargine [Lantus Insulin] 5 unit SQ 1800 Insulin Aspart [Novolog] 0 unit SQ TIDWMEALS Citalopram Hydrobromide [Celexa] 20 mg PO 1800 Ferrous Sulfate [Iron] 325 mg PO DAILY Torsemide 100 mg PO BID Rivaroxaban [Xarelto] 2.5 mg PO BID Levothyroxine Sodium [Synthroid] 25 mcg PO DAILY Midodrine HCl 20 mg PO BID Potassium Chloride 20 meq PO DAILY Lactobacillus Acidophilus [Acidophilus TABLET] 1 tab PO BID Tamsulosin HCl 0.4 mg [Flomax 0.4 MG] 0.4 mg PO 1800 Aspirin EC 81 mg [Ecotrin 81 mg] 81 mg PO DAILY Ondansetron ODT 4 MG [Zofran Odt 4 mg] 4 mg PO Q4HPRN PRN PRN Reason: Nausea/Vomiting Diphenoxylate HCl/Atropine [Lomotil] 1 tab PO TID Dapagliflozin Propanediol [Farxiga] 10 mg PO DAILY Ergocalciferol (Vitamin D2) [Drisdol] 50,000 mcg PO WEEKLY Inulin/Chromium Picolinate [Fiber Gummies] 2 each PO DAILY Multivitamin 1 each PO DAILY Additional Instructions: WEAR 3L/NC AT ALL TIMES NOW CONTINUE DRESSING CHANGE PREVIOUSLY BUT BE MORE AGGRESSIVE WITH THE IDODINE PAINT Follow up with: KALLIE HAYES DPM [ACTIVE STAFF] - 07/26/23 9:30 am ZAN CHOWDHURY [Primary Care Provider] - 07/26/23 1:15 pm ASIF ANGEL [NON-STAFF PHY W/O PRIVILEGES] - 08/02/23 1:15 pm
[2023-07-19 08:45] VITALS: RESP 12
[2023-07-19] MEDS: Vibramycin 100 MG PO ONE (13:12)
[2023-07-19] MEDS: Bactroban OINTMENT TP SCH (14:07)
[2023-07-19 14:43] VITALS: BP 127/58; PULSE 81; TEMP 97.8; O2SAT 97
[2023-07-20] MEDS ORDERED: VITAMIN D2 PO SCH (10:00)
[2023-07-20] MEDS ORDERED: NON-FORMULARY ITEM PO ONE (12:51)
--- NOTE | 2023-07-22 11:08 | ECHO ---
DATE: 07/19/2023 INDICATION: Congestive heart failure. The M-mode, 2D, and Doppler echocardiogram including color flow Doppler shows the left ventricle is normal in size. There is severe hypertrophy of the interventricular septum. The left ventricular systolic function is severely decreased. The ejection fraction is estimated to be 15-20%. The left atrium is borderline dilated. The interatrial septum is intact. The right atrium is normal. The aortic valve is calcified with decreased leaflet motion. There is no significant stenosis present. There is mitral valve leaflet thickening associated with mild mitral regurgitation. There is mild tricuspid regurgitation. The right ventricular systolic pressure is calculated to be 22 mm Hg. The pulmonic valve is not well visualized. The aortic root is normal. There is no pericardial effusion present. IMPRESSION: 1. SEVERE LEFT VENTRICULAR SYSTOLIC DYSFUNCTION. 2. SEVERE ASSYMMETRIC LEFT VENTRICULAR HYPERTROPHY INVOLVING THE INTERVENTRICULAR SEPTUM. 3. BORDERLINE LEFT ATRIAL DILATATION. 4. MILD TRICUSPID REGURGITATION. 5. MILD MITRAL REGURGITATION. 6. NORMAL RIGHT VENTRICULAR SYSTOLIC PRESSURE.
== END 2023-07-19 15:40 | disposition home or self-care (01) | DRG 602 ==
LOC: ED 10:05 → MED SURG 12:58 → OBSVTOIN 13:51
PROVIDERS: ADMIT Internal Medicine; ATTEND Internal Medicine
PROC: 2W1MX6Z Compression of Left Lower Extremity using Pressure Dressing (ICD-10-PCS; principal; 2023-07-16)
PROC: 2W1LX6Z Compression of Right Lower Extremity using Pressure Dressing (ICD-10-PCS; 2023-07-16)
DX: L03.116 Cellulitis of left lower limb (principal); A41.9 Sepsis, unspecified organism; J18.9 Pneumonia, unspecified organism; I13.0 Hypertensive heart and chronic kidney disease with heart failure and stage 1 through stage 4 chronic kidney disease, or unspecified chronic kidney disease; N17.9 Acute kidney failure, unspecified; R65.10 Systemic inflammatory response syndrome (SIRS) of non-infectious origin without acute organ dysfunction; E11.22 Type 2 diabetes mellitus with diabetic chronic kidney disease; N18.9 Chronic kidney disease, unspecified; I50.9 Heart failure, unspecified; D63.1 Anemia in chronic kidney disease; D72.829 Elevated white blood cell count, unspecified; Z22.322 Carrier or suspected carrier of Methicillin resistant Staphylococcus aureus; S91.302A Unspecified open wound, left foot, initial encounter; Z79.4 Long term (current) use of insulin; I25.10 Atherosclerotic heart disease of native coronary artery without angina pectoris; E78.5 Hyperlipidemia, unspecified; N40.0 Benign prostatic hyperplasia without lower urinary tract symptoms; Z86.73 Personal history of transient ischemic attack (TIA), and cerebral infarction without residual deficits; Z79.899 Other long term (current) drug therapy; Z79.01 Long term (current) use of anticoagulants
CPT/HCPCS: 0241U; 29580; 36000; 36415; 71045; 80053; 80202; 81001; 82947; 83036; 83605; 83690; 83880; 84145; 85025; 85027; 87040; 87641; 93268; 93306; 94640; 94760; 96365; 96374; 96375; 97161; 97530; 99222; 99285; Q3014; 99232; J0295; J0692; J0696; J0878; J1642; J1817; J2405; A9270-GY; J3370

== ENCOUNTER 2023-08-24 16:58 | Emergency (ER) | payer MEDICARE, OTHER ==
[2023-08-24 17:24] VITALS: PULSE 88; RESP 18; TEMP 97.4
[2023-08-24 18:34] VITALS: BP 131/73
[2023-08-24 18:40] VITALS: O2SAT 96
--- NOTE | 2023-08-24 18:40 | ERPHSYRPT ---
- History of Present Illness Time Seen by Provider: 08/24/23 17:35 Source: patient Exam Limitations: no limitations Patient Subjective Stated Complaint: pt because she is worried about a blood clot to right upper leg, he states it hurts when he coughs, pt is seeing dr anam herbert for cellulitis to both lower legs. Triage Nursing Assessment: pt alert, arrived per wc, resp easy, skin w/d/p. has uni boots to lower legs due to cellulitis to lower legs. 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 Machuca's office for ultrasound to rule out DVT. Patient states that he experiences some pain in his calves when he coughs. Patient's family member is a geophysical prospecting permit agent and states that the patient should probably have an ultrasound. Patient otherwise has no symptoms. No chest pain or shortness of breath. No nausea vomiting or diaphoresis. Caregiver at bedside. They voiced no other complaints or concerns at this time. Portions of this note were created with voice recognition technology. There may be grammatical, spelling, punctuation or sound alike errors Timing/Duration: yesterday Severity: moderate Modifying Factors: Improves With: nothing Associated Symptoms: denies symptoms Allergies/Adverse Reactions: sulfamethoxazole [From Bactrim] Allergy (Intermediate, Verified 08/24/23 17:22) Swelling trimethoprim [From Bactrim] Allergy (Intermediate, Verified 08/24/23 17:22) Swelling Sulfa (Sulfonamide Antibiotics) Adverse Reaction (Intermediate, Verified 08/24/23 17:22) Swelling Home Medications: Citalopram Hydrobromide [Celexa] 20 mg PO 1800 02/22/19 [History] Ferrous Sulfate [Iron] 325 mg PO DAILY 02/22/19 [History] Insulin Aspart [Novolog] 0 unit SQ TIDWMEALS 02/22/19 [History] Insulin Glargine [Lantus Insulin] 5 unit SQ 1800 02/22/19 [History] Rivaroxaban [Xarelto] 2.5 mg PO BID 10/17/21 [History] Torsemide 100 mg PO BID 10/17/21 [History] Lactobacillus Acidophilus [Acidophilus TABLET] 1 tab PO BID 09/30/22 [History] Levothyroxine Sodium [Synthroid] 25 mcg PO DAILY 09/30/22 [History] Midodrine HCl 20 mg PO BID 09/30/22 [History] Potassium Chloride 20 meq PO DAILY 09/30/22 [History] Aspirin EC 81 mg [Ecotrin 81 mg] 81 mg PO DAILY 12/09/22 [History] Tamsulosin HCl 0.4 mg [Flomax 0.4 MG] 0.4 mg PO 1800 12/09/22 [History] Diphenoxylate HCl/Atropine [Lomotil] 1 tab PO TID 01/05/23 [History] Ondansetron ODT 4 MG [Zofran Odt 4 mg] 4 mg PO Q4HPRN PRN 01/05/23 [History] Dapagliflozin Propanediol [Farxiga] 10 mg PO DAILY 07/15/23 [History] Ergocalciferol (Vitamin D2) [Drisdol] 50,000 mcg PO WEEKLY 07/15/23 [History] Inulin/Chromium Picolinate [Fiber Gummies] 2 each PO DAILY 07/15/23 [History] Multivitamin 1 each PO DAILY 07/15/23 [History] Hx Tetanus, Diphtheria Vaccination/Date Given: No Hx Influenza Vaccination/Date Given: No Hx Pneumococcal Vaccination/Date Given: Yes Immunizations Up to Date: Yes Travel Risk - International Travel Have you traveled outside of the country in past 3 weeks: No - Emerging Infectious Disease Are you exhibiting symptoms associated with any current EIDs: No Symptoms: Fever - Review of Systems Constitutional: No Symptoms, No Fever, No Chills Eyes: No Symptoms Ears, Nose, & Throat: No Symptoms Respiratory: No Symptoms, No Cough, No Dyspnea Cardiac: No Symptoms, No Chest Pain, No Edema, No Syncope Abdominal/Gastrointestinal: No Symptoms, No Abdominal Pain, No Nausea, No Vomiting, No Diarrhea Genitourinary Symptoms: No Symptoms, No Dysuria Musculoskeletal: No Symptoms, No Back Pain, No Neck Pain Skin: No Symptoms, No Rash Neurological: No Symptoms, No Dizziness, No Focal Weakness, No Sensory Changes Psychological: No Symptoms Endocrine: No Symptoms Hematologic/Lymphatic: No Symptoms Immunological/Allergic: No Symptoms All Other Systems: Reviewed and Negative - Past Medical History Pertinent Past Medical History: Yes Neurological History: Stroke ENT History: No Pertinent History Cardiac History: Congestive Heart Failure, High Cholesterol, Hypertension, Myocardial Infarction ([place]) Respiratory History: No Pertinent History Endocrine Medical History: Diabetes Type II Musculoskeletal History: Arthritis GI Medical History: No Pertinent History History: Renal Disease Psycho-Social History: No Pertinent History Male Reproductive Disorders: No Pertinent History 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%", fall injuring jordon hands - Past Surgical History Past Surgical History: Yes Neuro Surgical History: No Pertinent History Cardiac: Cardiac Catheterization, Other Respiratory: No Pertinent History Gastrointestinal: No Pertinent History Genitourinary: No Pertinent History Musculoskeletal: No Pertinent History, Orthopedic Surgery Male Surgical History: No Pertinent History Other Surgical History: Callus removed from ball of right foot; 2ND DIGIT RIGHT FOOT REMOVED, transmetatarsal right amputation, BLE stents - Social History Smoking Status: Never smoker Exposure to second hand smoke: No Drug Use: none Patient Lives Alone: Yes - Nursing Vital Signs Nursing Vital Signs: Initial Vital Signs Temperature 97.4 F 08/24/23 17:23 Pulse Rate 88 08/24/23 17:23 Respiratory Rate 18 08/24/23 17:23 Blood Pressure 113/58 08/24/23 17:23 O2 Sat by Pulse Oximetry 96 08/24/23 17:23 Pain Scale Pain Intensity 7 - Physical Exam General Appearance: no apparent distress, alert Eye Exam: PERRL/EOMI, eyes nml inspection Ears, Nose, Throat Exam: normal ENT inspection, TMs normal, moist mucous membranes Neck Exam: normal inspection, full range of motion Respiratory Exam: normal breath sounds, lungs clear, airway intact, No respiratory distress Cardiovascular Exam: regular rate/rhythm, normal heart sounds, normal peripheral pulses Gastrointestinal/Abdomen Exam: soft, normal bowel sounds, No tenderness, No mass Back Exam: normal inspection, normal range of motion, No CVA tenderness, No vertebral tenderness Extremity Exam: normal inspection, normal range of motion, pelvis stable, other (Positive Homans' sign bilaterally. ) Neurologic Exam: alert, oriented x 3, cooperative, normal mood/affect, sensation nml, No motor deficits Skin Exam: normal color, warm, dry, No rash Lymphatic Exam: No adenopathy SpO2 Interpretation: normal SpO2: 96 O2 Delivery: Room Air - Course Nursing assessment & vital signs reviewed: Yes - Radiology Ultrasound Exam Venous Lower Extremity Ultrasound: discussed w/radiologist (Per turbo generator oiler negative DVT at both right and left lower extremity) Ordered Tests: Active Orders 24 hr Category Date Time Status VENOUS BILATERAL EXTREMITY [US] Stat Exams 08/24/23 17:53 Ordered - Progress Progress: improved Progress Note: 87-year-old male presents to our ED for ultrasound right lower extremity due to pain. Both lower extremities are dressed. Patient currently being treated for lower extremity cellulitis. Patient's is being treated by our rand butting machine operator. Patient has no systemic manifestations. Physical exam reveals some tenderness at both calfs. Positive Homans signs bilaterally. Both involved extremities neurovascular tact distally compartments are soft cap refill less than 2 seconds. Ultrasound negative for DVT bilaterally. No indication for further workup. Will discharge home. Caregiver will dress patient's lower extremities when he arrived home. Portions of this note were created with voice recognition technology. There may be grammatical, spelling, punctuation or sound alike errors Complexity problem addressed is moderate acute complicated. No critical care time. Complex of data reviewed and analyzed is moderate. Test ordered test reviewed results analyzed and correlated clinically with history and physical exam. Risk of complication and or risk of morbidity/mortality patient management is low. Vital stable. Time spent to discharge patient is approximately 15 minutes. Plan of care established for shared decision making. No social determinants of health present impede follow-up. Portions of this note were created with voice recognition technology. There may be grammatical, spelling, punctuation or sound alike errors 08/24/23 18:37 Counseled pt/family regarding: diagnosis, need for follow-up, rad results - Departure Departure Disposition: Home Clinical Impression: Bilateral calf pain Condition: Stable Critical Care Time: No Referrals: [facility] [Primary Care Provider] - Follow up/PCP as directed Additional Instructions: Discharge/Care Plan KIRBYDALE VIVAR was seen on 08/24/23 in the Emergency Room. The patient was counseled regarding Diagnosis,Lab results, Imaging studies, need for follow up and when to return to the Emergency Room. Prescriptions given: Discharge Note I have spoken with the patient and/or caregivers. I have explained the patient's condition, diagnosis and treatment plan based on the information available to me at this time. I have answered the patient's and/or caregiver's questions and addressed any concerns. The patient and/or caregivers have as good understanding of the patient's diagnosis, condition and treatment plan as can be expected at this point. The vital signs have been stable. The patient's condition is stable and appropriate for discharge from the emergency department. The patient will pursue further outpatient evaluation with the primary care physician or other designated or consulting physician as outlined in the discharge instructions. The patient and/or caregivers are agreeable to this plan of care and follow-up instructions have been explained in detail. The patient and/or caregivers have received these instruction. The patient/and or caregivers are aware that any significant change in condition or worsening of symptoms should prompt an immediate return to this or the closest emergency department or call 911.
--- NOTE | 2023-08-25 08:59 | XRAY ---
Indication: Bilateral leg pain and swelling. Two-dimensional sonogram and color Doppler imaging major venous vessels left and right leg performed. Comparison: June 05, 2016 No thrombus seen in the examined deep venous vessels left and right leg including greater saphenous vein. Veins demonstrate normal compressibility. Venous waveforms are normal with and without augmentation. Impression: Left and right legs continue to be negative for DVT. Comment: Preliminary report was given.
== END 2023-08-24 19:00 | disposition home or self-care (01) ==
LOC: ED 16:58
DX: M79.661 Pain in right lower leg (principal); M79.662 Pain in left lower leg; E78.5 Hyperlipidemia, unspecified; I11.0 Hypertensive heart disease with heart failure; I50.9 Heart failure, unspecified; E11.9 Type 2 diabetes mellitus without complications; Z79.4 Long term (current) use of insulin; Z79.01 Long term (current) use of anticoagulants; Z79.899 Other long term (current) drug therapy
CPT/HCPCS: 93970; 99282

== ENCOUNTER 2024-01-18 10:53 | Inpatient (IN) | payer OTHER, MEDICARE ==
--- NOTE | 2024-01-18 11:02 | ERPHSYRPT ---
- History of Present Illness Time Seen by Provider: 01/18/24 10:59 Source: patient Exam Limitations: no limitations Physician History: 88-year-old male presents to emergency department via EMS from the [facility] for evaluation of abnormal labs, possible lower extremity infection confusion and hallucination. Patient states he sees little girls floating but he knows they are not real. Patient is cognizant and aware of the hallucinations. No fever reported. No trauma. Symptoms are mild to moderate in intensity. No specific worsening or improving factors. Patient otherwise feels well. He voices no other complaints or concerns at this time. Portions of this note were created with voice recognition technology. There may be grammatical, spelling, punctuation or sound alike errors Timing/Duration: today Severity: moderate Modifying Factors: Improves With: nothing Allergies/Adverse Reactions: sulfamethoxazole [From Bactrim] Allergy (Intermediate, Verified 01/18/24 11:43) Swelling trimethoprim [From Bactrim] Allergy (Intermediate, Verified 01/18/24 11:43) Swelling Sulfa (Sulfonamide Antibiotics) Adverse Reaction (Intermediate, Verified 01/18/24 11:43) Swelling Home Medications: Citalopram Hydrobromide [Celexa] 20 mg PO 1800 02/22/19 [History] Ferrous Sulfate [Iron] 325 mg PO DAILY 02/22/19 [History] Insulin Aspart [Novolog] 0 unit SQ TIDWMEALS 02/22/19 [History] Insulin Glargine [Lantus Insulin] 5 unit SQ 1800 02/22/19 [History] Rivaroxaban [Xarelto] 2.5 mg PO BID 10/17/21 [History] Torsemide 100 mg PO BID 10/17/21 [History] Lactobacillus Acidophilus [Acidophilus TABLET] 1 tab PO BID 09/30/22 [History] Levothyroxine Sodium [Synthroid] 25 mcg PO DAILY 09/30/22 [History] Midodrine HCl 20 mg PO BID 09/30/22 [History] Potassium Chloride 20 meq PO DAILY 09/30/22 [History] Aspirin EC 81 mg [Ecotrin 81 mg] 81 mg PO DAILY 12/09/22 [History] Tamsulosin HCl 0.4 mg [Flomax 0.4 MG] 0.4 mg PO 1800 12/09/22 [History] Diphenoxylate HCl/Atropine [Lomotil] 1 tab PO TID 01/05/23 [History] Ondansetron ODT 4 MG [Zofran Odt 4 mg] 4 mg PO Q4HPRN PRN 01/05/23 [History] Dapagliflozin Propanediol [Farxiga] 10 mg PO DAILY 07/15/23 [History] Ergocalciferol (Vitamin D2) [Drisdol] 50,000 mcg PO WEEKLY 07/15/23 [History] Inulin/Chromium Picolinate [Fiber Gummies] 2 each PO DAILY 07/15/23 [History] Multivitamin 1 each PO DAILY 07/15/23 [History] Hx Tetanus, Diphtheria Vaccination/Date Given: No Hx Influenza Vaccination/Date Given: No Hx Pneumococcal Vaccination/Date Given: Yes Travel Risk - Emerging Infectious Disease Are you exhibiting symptoms associated with any current EIDs: No Symptoms: Fever - Review of Systems Constitutional: No Symptoms, No Fever, No Chills Eyes: No Symptoms Ears, Nose, & Throat: No Symptoms Respiratory: No Symptoms, No Cough, No Dyspnea Cardiac: No Symptoms, No Chest Pain, No Edema, No Syncope Abdominal/Gastrointestinal: No Symptoms, No Abdominal Pain, No Nausea, No Vomiting, No Diarrhea Genitourinary Symptoms: No Symptoms, No Dysuria Musculoskeletal: No Symptoms, No Back Pain, No Neck Pain Skin: No Symptoms, No Rash Neurological: No Symptoms, No Dizziness, No Focal Weakness, No Sensory Changes Psychological: No Symptoms Endocrine: No Symptoms Hematologic/Lymphatic: No Symptoms Immunological/Allergic: No Symptoms All Other Systems: Reviewed and Negative - Past Medical History Pertinent Past Medical History: Yes Neurological History: Stroke ENT History: No Pertinent History Cardiac History: Congestive Heart Failure, High Cholesterol, Hypertension, Myocardial Infarction ([place]) Respiratory History: No Pertinent History Endocrine Medical History: Diabetes Type II Musculoskeletal History: Arthritis GI Medical History: No Pertinent History History: Renal Disease Psycho-Social History: No Pertinent History Male Reproductive Disorders: No Pertinent History 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%", fall injuring jordon hands - Past Surgical History Past Surgical History: Yes Neuro Surgical History: No Pertinent History Cardiac: Cardiac Catheterization, Other Respiratory: No Pertinent History Gastrointestinal: No Pertinent History Genitourinary: No Pertinent History Musculoskeletal: No Pertinent History, Orthopedic Surgery Male Surgical History: No Pertinent History Other Surgical History: Callus removed from ball of right foot; 2ND DIGIT RIGHT FOOT REMOVED, transmetatarsal right amputation, BLE stents - Social History Smoking Status: Never smoker Exposure to second hand smoke: No Drug Use: none Patient Lives Alone: Yes - Social Determinants of Health Will the patient participate in the screening: Declined to provide - Nursing Vital Signs Nursing Vital Signs: Initial Vital Signs Temperature 97.1 F 01/18/24 10:58 Blood Pressure 67/44 01/18/24 10:58 O2 Sat by Pulse Oximetry 96 01/18/24 10:58 Pain Scale Pain Intensity 0 - Physical Exam General Appearance: no apparent distress, alert Eye Exam: PERRL/EOMI, eyes nml inspection Ears, Nose, Throat Exam: normal ENT inspection, TMs normal, pharynx normal, moist mucous membranes Neck Exam: normal inspection, non-tender, supple, full range of motion Respiratory Exam: normal breath sounds, lungs clear, No respiratory distress Cardiovascular Exam: regular rate/rhythm, normal heart sounds, normal peripheral pulses Gastrointestinal/Abdomen Exam: soft, normal bowel sounds, No tenderness, No mass Back Exam: normal inspection, normal range of motion, No CVA tenderness, No vertebral tenderness Extremity Exam: normal inspection, normal range of motion, pelvis stable, other (Bilateral lower extremity cellulitis with moderate drainage. 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) Ordered Tests: Active Orders 24 hr Category Date Time Status Electronic Gluing Machine Operator STAT Care 01/18/24 11:14 Active EKG-ER Only STAT Care 01/18/24 11:14 Active IV Insertion STAT Care 01/18/24 11:14 Active Pulse Oximetry (ED) STAT Care 01/18/24 11:14 Active CHEST 1 VIEW (PORTABLE) Stat Exams 01/18/24 14:33 Completed HEAD WITHOUT CONTRAST [CT] Stat Exams 01/18/24 10:58 Completed BLOOD CULTURE Stat Lab 01/18/24 12:25 Received CBC W DIFF Stat Lab 01/18/24 12:25 Completed CMP Stat Lab 01/18/24 12:25 Completed CULTURE,WOUND Stat Lab 01/18/24 15:29 Ordered CULTURE,WOUND Stat Lab 01/18/24 15:29 Ordered Lactic Acid Stat Lab 01/18/24 11:13 Completed PROCALCITONIN Stat Lab 01/18/24 12:25 Completed UA W/RFX UR CULTURE Stat Lab 01/18/24 13:48 Completed Medication Summary Generic Name Dose Route Start Last Admin Trade Name Freq PRN Reason Stop Dose Admin Doxycycline Hyclate 100 mg/ 100 mls @ 100 mls/hr 01/18/24 15:45 Dextrose IV 01/18/24 16:44 STAT ONE Lab/Rad Data: Laboratory Result Diagrams 01/18/24 12:25 01/18/24 12:25 Laboratory Results 01/18/24 01/18/24 01/18/24 Range/Units 13:48 12:25 12:25 WBC (4.23-9.07) x10^3/uL RBC (4.63-6.08) x10^6/uL Hgb (13.7-17.5) g/dL Hct (40.1-51.0) % MCV (79.0-92.2) fL MCH (25.7-32.2) pg MCHC (32.3-36.5) g/dL RDW (11.6-14.4) % Plt Count (163-337) x10^3/uL MPV (9.4-12.4) fL Gran % (34.0-67.9) % Immature Gran % (Auto) (0.001-0.429) % Nucleat RBC Rel Count (0.00-0.2) % Eos # (Auto) (0.04-0.54) x10^3/uL Immature Gran # (Auto) (0.001-0.031) x10^3u/L Absolute Lymphs (auto) (1.32-3.57) x10^3/uL Absolute Monos (auto) (0.30-0.82) x10^3/uL Absolute Nucleated RBC (0.00-0.012) x10^3u/L Lymphocytes % (21.8-53.1) % Monocytes % (5.3-12.2) % Eosinophils % (0.8-7.0) % Basophils % (0.2-1.2) % Absolute Granulocytes (1.78-5.38) x10^3/uL Basophils # (0.01-0.08) x10^3/uL Sodium 137 (135-145) mmol/L Potassium 4.7 (3.5-5.1) mmol/L Chloride 105 (98-107) mmol/L Carbon Dioxide 19 L (22-30) mmol/L Anion Gap 17.2 H (5-15) MEQ/L BUN 40 H (9-20) mg/dL Creatinine 1.91 H (0.66-1.25) mg/dL Estimated GFR 33.5 ML/MIN Glucose 125 H (74-106) mg/dL Lactic Acid (0.4-2.0) Calcium 9.2 (8.4-10.2) mg/dL Total Bilirubin 1.10 (0.2-1.3) mg/dL AST 29 (17-59) U/L ALT 21 (0-50) U/L Alkaline Phosphatase 94 (38-126) U/L Serum Total Protein 7.3 (6.3-8.2) g/dL Albumin 3.7 (3.5-5.0) g/dL Procalcitonin 0.141 H (0.030-0.080) ng/mL Urine Color Yellow (Yellow) Urine Appearance Clear (Clear) Urine pH 5.0 (4.6-8.0) Ur Specific [place] 1.010 (1.005-1.030) Urine Protein 30 (Negative) Urine Glucose (UA) 100 A (Negative) mg/dL Urine Ketones Trace A (Negative) Urine Blood Negative (Negative) Urine Nitrite Negative (Negative) Urine Bilirubin Negative (Negative) Urine Urobilinogen 0.2 (0.2) mg/dL Ur Leukocyte Esterase Negative (Negative) U Hyaline Cast (Auto) 6-10 A (0-2) /LPF Urine Microscopic RBC 0-2 (0-5) /HPF Urine Microscopic WBC 0-2 (0-5) /HPF Ur Epithelial Cells None Seen (None Seen) /HPF Urine Bacteria None Seen (None Seen) /HPF Urine Culture Reflexed NO (NO) 01/18/24 01/18/24 Range/Units 12:25 11:13 WBC 4.2 L (4.23-9.07) x10^3/uL RBC 3.62 L (4.63-6.08) x10^6/uL Hgb 10.0 L (13.7-17.5) g/dL Hct 32.5 L (40.1-51.0) % MCV 89.8 (79.0-92.2) fL MCH 27.6 (25.7-32.2) pg MCHC 30.8 L (32.3-36.5) g/dL RDW 18.0 H (11.6-14.4) % Plt Count 127 L (163-337) x10^3/uL MPV 10.4 (9.4-12.4) fL Gran % 81.8 H (34.0-67.9) % Immature Gran % (Auto) 0.5 H (0.001-0.429) % Nucleat RBC Rel Count 0.0 (0.00-0.2) % Eos # (Auto) 0.06 (0.04-0.54) x10^3/uL Immature Gran # (Auto) 0.02 (0.001-0.031) x10^3u/L Absolute Lymphs (auto) 0.35 L (1.32-3.57) x10^3/uL Absolute Monos (auto) 0.31 (0.30-0.82) x10^3/uL Absolute Nucleated RBC 0.00 (0.00-0.012) x10^3u/L Lymphocytes % 8.3 L (21.8-53.1) % Monocytes % 7.3 (5.3-12.2) % Eosinophils % 1.4 (0.8-7.0) % Basophils % 0.7 (0.2-1.2) % Absolute Granulocytes 3.45 (1.78-5.38) x10^3/uL Basophils # 0.03 (0.01-0.08) x10^3/uL Sodium (135-145) mmol/L Potassium (3.5-5.1) mmol/L Chloride (98-107) mmol/L Carbon Dioxide (22-30) mmol/L Anion Gap (5-15) MEQ/L BUN (9-20) mg/dL Creatinine (0.66-1.25) mg/dL Estimated GFR ML/MIN Glucose (74-106) mg/dL Lactic Acid 1.6 (0.4-2.0) Calcium (8.4-10.2) mg/dL Total Bilirubin (0.2-1.3) mg/dL AST (17-59) U/L ALT (0-50) U/L Alkaline Phosphatase (38-126) U/L Serum Total Protein (6.3-8.2) g/dL Albumin (3.5-5.0) g/dL Procalcitonin (0.030-0.080) ng/mL Urine Color (Yellow) Urine Appearance (Clear) Urine pH (4.6-8.0) Ur Specific [place] (1.005-1.030) Urine Protein (Negative) Urine Glucose (UA) (Negative) mg/dL Urine Ketones (Negative) Urine Blood (Negative) Urine Nitrite (Negative) Urine Bilirubin (Negative) Urine Urobilinogen (0.2) mg/dL Ur Leukocyte Esterase (Negative) U Hyaline Cast (Auto) (0-2) /LPF Urine Microscopic RBC (0-5) /HPF Urine Microscopic WBC (0-5) /HPF Ur Epithelial Cells (None Seen) /HPF Urine Bacteria (None Seen) /HPF Urine Culture Reflexed (NO) - Progress Progress: improved Progress Note: 88-year-old male presents to our ED via EMS for evaluation of hallucinations generalized weakness abnormal kidney function and worsening lower extremity wounds. Patient admits that he sees "little girls floating". Patient is aware that these are hallucinations and not real images. EMS reports increased lower extremity wound drainage. Patient is a DNR. Patient denies active pain. No chest pain or shortness of breath. No nausea vomiting or diaphoresis. No active fever. Patient voices no other complaints or concerns at this time. Portions of this note were created with voice recognition technology. There may be grammatical, spelling, punctuation or sound alike errors Complexity problem addressed is moderate acute complicated. No critical care time. Complex of data reviewed and analyzed is extensive. Test ordered chest reviewed results analyzed and correlated clinically with history and physical exam. Management discussed with hospitalist accepts admission to observation at 3:27 PM. Risk of complication and or risk of morbidity/mortality of patient management is high. Patient requires hospitalization for further evaluation and treatment. Vital stable. Time spent admit patient is approximately 20 minutes. Plan of care established for shared decision making. No social determinants of health present to impede follow-up. 01/18/24 15:51 Counseled pt/family regarding: lab results, diagnosis, need for follow-up, rad results - Departure Departure Disposition: Observation Clinical Impression: Hallucination, Confusion, Chronic renal insufficiency, High anion gap metabolic acidosis, Cellulitis Condition: Stable Critical Care Time: No Referrals: RICARDO OCASIO [facility] [Primary Care Provider] - Follow up/PCP as directed
--- NOTE | 2024-01-18 12:18 | XRAY ---
Indication: Altered mental status. Confusion. Multiple contiguous axial images obtained through the head without contrast. Comparison: October 17, 2021 Again age-appropriate global atrophy, mild periventricular degenerative micro-ischemia bilaterally, and small old infarct left cerebellum. No acute intracranial hemorrhage, abnormal extra-axial fluid collection, or mass effect. Fourth ventricle is midline without hydrocephalus. Bony calvarium intact. Visualized paranasal sinuses and mastoid air cells are clear. Impression: Continue nonacute senile brain with small old left cerebellar infarct.
[2024-01-18 13:00] LABS: Absolute Neutrophil Ct (ANC) 3.45 x10^3/uL (1.78-5.38); BASOPHIL % 0.7 % (0.2-1.2); Basophil (Absolute #) 0.03 x10^3/uL (0.01-0.08); Eosinophil % 1.4 % (0.8-7.0); Eosinophil (Absolute #) 0.06 x10^3/uL (0.04-0.54); Hematocrit 32.5 % (40.1-51.0); IMMATURE GRAN # 0.02 x10^3u/L (0.001-0.031); IMMATURE GRAN % 0.5 % (0.001-0.429); Lymphocyte (Absolute #) 0.35 x10^3/uL (1.32-3.57); Lymphocytes % 8.3 % (21.8-53.1); Mean Cell Volume 89.8 fL (79.0-92.2); Mean Corpuscular Hemoglobin 27.6 pg (25.7-32.2); Mean Corpuscular Hgb Concent. 30.8 g/dL (32.3-36.5); Mean Platelet Volume 10.4 fL (9.4-12.4); Monocyte (Absolute #) 0.31 x10^3/uL (0.30-0.82); Monocytes % 7.3 % (5.3-12.2); Neutrophil % 81.8 % (34.0-67.9); Platelet Count 127 x10^3/uL (163-337); Red Blood Count 3.62 x10^6/uL (4.63-6.08); White Blood Count 4.2 x10^3/uL (4.23-9.07)
[2024-01-18 13:14] LABS: ALBUMIN 3.7 g/dL (3.5-5.0); ANION GAP 17.2 MEQ/L (5-15); BILIRUBIN,TOTAL 1.1 mg/dL (0.2-1.3); Calcium 9.2 mg/dL (8.4-10.2); Creatinine 1 1.91 mg/dL (0.66-1.25); EST GLOMERULAR FILTRATION RATE 33.5 ML/MIN; Potassium 4.7 mmol/L (3.5-5.1); Total Protein 7.3 g/dL (6.3-8.2)
[2024-01-18 14:29] LABS: Appearance Clear (Clear); Bacteria None Seen /HPF (None Seen); Bilirubin Negative (Negative); Blood Negative (Negative); Epithelial Cells None Seen /HPF (None Seen); Glucose, Urine 100 mg/dL (Negative); Ketones Trace (Negative); Leukocyte Esterase Negative (Negative); Nitrite Negative (Negative); Protein,Urine Dip 30 (Negative); RBC 0-2 /HPF (0-5); Urobilinogen 0.2 mg/dL (0.2); WBC 0-2 /HPF (0-5)
--- NOTE | 2024-01-18 15:10 | XRAY ---
Indication: Short of breath. Comparison: November 16, 2023 Portable chest again demonstrates cardiomegaly with small bibasilar effusions, favoring cardiac decompensation/CHF. Again mild right base infiltrate versus atelectasis, possible superimposed pneumonia. Bony thorax intact again with osteopenia and degenerative changes.
[2024-01-18 15:53] LABS: Slide Review 1 YES
[2024-01-18] MEDS: VIBRAMYCIN 100 MG*** 100 MG in Dextrose 5%/Water IV Soln. 100ML PLUS BAG 100 ML IV ONE (15:54)
[2024-01-18] MEDS ORDERED: Lasix 40 MG/4 ML ONE (17:40)
[2024-01-18] MEDS ORDERED: NITRO-BID 2% UD PACKETS ONE (17:40)
[2024-01-18] MEDS: Lasix 40 MG/4 ML IV ONE (17:45)
[2024-01-18] MEDS: NITRO-BID 2% UD PACKETS TOP ONE (17:45)
--- NOTE | 2024-01-18 18:02 | PCM.HP ---
History of Present Illness - Chief Complaint Chief Complaint: Cellulitis, delirium, hallucinations Date: 01/18/24 History of Present Illness: is a 88 year old male with PMHX of CVA 2005, CHF, hyperlipidemia, HTN, AL, Type II DM, OA, CKD, and CAD. Pt presents to emergency department via EMS from the [facility] for evaluation of abnormal labs, possible lower extremity infection confusion and hallucination. Patient states he sees little girls floating but he knows they are not real. Patient is cognizant and aware of the hallucinations. Daughter states he developed green drainage from BLLE Wednesday. He then became confused the next day. She reports he often has confusion with extreme infections. Wound cultures done Wednesday at [facility] show pseudomas for BLLE. He had not been on any antibiotics until today. Repeat wound cultures completed in ER. BC x2 pending. Pt started on IV antibiotics and changed to broad spectrum antibiotics IP. Podiatry consulted and XR's of BLLE ordered. IV lasix gave in ER for CHF exacerbation as seen on CXR. Per pt's daughter pt had an angiogram on and needs further surgery of LLE for better blood flow. This is to be done per [facility] Dr. Perez. Pt follows Dr. Huggins for nephrology. Daughter would also like pt to work with PT/OT a while here as pt was up and walking with a cane in October. Pt is pleasantly confused and denies any further concerns at this time. - Review of Systems Constitutional: No Fever, No Chills Eyes: No Symptoms Ears, Nose, & Throat: No Symptoms Respiratory: No Cough, No Short Of Breath Cardiac: No Chest Pain, No Edema, No Syncope Abdominal/Gastrointestinal: No Abdominal Pain, No Nausea, No Vomiting, No Diarrhea Genitourinary Symptoms: No Dysuria Musculoskeletal: No Back Pain, No Neck Pain Skin: No Rash Neurological: No Dizziness, No Focal Weakness, No Sensory Changes Psychological: No Symptoms, Hallucinations Endocrine: No Symptoms Hematologic/Lymphatic: No Symptoms Immunological/Allergic: No Symptoms Medications & Allergies Home Medications: Home Medication List Citalopram Hydrobromide [Celexa] 20 mg PO DAILY 02/22/19 [History Confirmed 01/18/24] Ferrous Sulfate [Iron] 325 mg PO TID 02/22/19 [History Confirmed 01/18/24] Insulin Aspart [Novolog] 0 unit SQ TIDWMEALS 02/22/19 [History Confirmed 01/18/24] Insulin Glargine [Lantus Insulin] 18 unit SQ 1800 02/22/19 [History Confirmed 01/18/24] Rivaroxaban [Xarelto] 2.5 mg PO BID 10/17/21 [History Confirmed 01/18/24] Lactobacillus Acidophilus [Acidophilus TABLET] 1 tab PO BID 09/30/22 [History Confirmed 01/18/24] Levothyroxine Sodium [Synthroid] 25 mcg PO DAILY 09/30/22 [History Confirmed 01/18/24] Potassium Chloride 30 meq PO TID 09/30/22 [History Confirmed 01/18/24] Aspirin EC 81 mg [Ecotrin 81 mg] 81 mg PO DAILY 12/09/22 [History Confirmed 01/18/24] Tamsulosin HCl 0.4 mg [Flomax 0.4 MG] 0.4 mg PO HS 12/09/22 [History Confirmed 01/18/24] Ergocalciferol (Vitamin D2) [Drisdol] 50,000 mcg PO WEEKLY 07/15/23 [History Confirmed 01/18/24] Furosemide 20 mg [Lasix 20 mg] 60 mg PO BID 01/18/24 [History Confirmed 01/18/24] Furosemide 40 mg [Lasix 40 MG] 60 mg PO BID 01/18/24 [History Confirmed 01/18/24] Insulin Lispro [Humalog] 6 unit SQ TIDWMEALS 01/18/24 [History Confirmed ] Latanoprost [Xalatan] 1 drop DROPS HS 01/18/24 [History Confirmed 01/18/24] metOLazone [Metolazone] 5 mg PO UD 01/18/24 [History Confirmed 01/18/24] Allergies/Adverse Reactions: Allergies Allergy/AdvReac Type Severity Reaction Status Date / Time sulfamethoxazole Allergy Intermediate Swelling Verified 01/18/24 11:43 [From Bactrim] trimethoprim [From Bactrim] Allergy Intermediate Swelling Verified 01/18/24 11:43 quetiapine [From Seroquel] Allergy Verified 01/18/24 18:09 Sulfa (Sulfonamide AdvReac Intermediate Swelling Verified 01/18/24 11:43 Antibiotics) - Past Medical History Past Medical History: Yes Neurological History: Stroke ENT History: No Pertinent History Cardiac History: Congestive Heart Failure, High Cholesterol, Hypertension, Myocardial Infarction (AL) Respiratory History: No Pertinent History Endocrine Medical History: Diabetes Type II Musculoskelatal History: Arthritis GI Medical History: No Pertinent History History: Renal Disease Pyscho-Social History: No Pertinent History Male Reproductive Disorders: No Pertinent History Comment: 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%", fall injuring jordon hands - Past Surgical History Past Surgical History: Yes Neuro Surgical History: No Pertinent History Cardiac History: Cardiac Catheterization, Other Respiratory Surgery: No Pertinent History GI Surgical History: No Pertinent History Genitourinary Surgical Hx: No Pertinent History Musculskeletal Surgical Hx: No Pertinent History, Orthopedic Surgery Male Surgical History: No Pertinent History Other Surgical History: Callus removed from ball of right foot; 2ND DIGIT RIGHT FOOT REMOVED, transmetatarsal right amputation, BLE stents - Social History Smoking Status: Never smoker Exposure to second hand smoke: No Alcohol: None Drug Use: none - Social Determinants of Health Will the patient participate in the screening: Declined to provide - Physical Exam Vital Signs: Vital Signs - 24 hr Temp Pulse Resp BP Pulse Ox 01/18/24 17:00 83 12 127/69 99 01/18/24 16:30 80 11 L 127/75 98 01/18/24 16:00 85 22 122/60 01/18/24 15:59 96 01/18/24 15:30 85 15 122/66 01/18/24 15:00 88 18 115/63 97 01/18/24 14:30 90 12 133/67 96 01/18/24 14:00 92 H 17 128/78 97 01/18/24 13:31 96 H 16 134/74 01/18/24 13:00 89 11 L 133/81 97 01/18/24 12:32 87 10 L 126/104 01/18/24 12:00 91 H 19 148/82 92 L 01/18/24 11:42 92 H 22 137/78 01/18/24 11:14 94 L 01/18/24 11:01 110 H 15 106/76 95 10/22/24 10:58 97.1 F 67/44 96 General Appearance: no apparent distress, alert Neurologic Exam: alert, oriented x 3, cooperative, normal mood/affect, nml cerebellar function, nml station & gait, sensation nml, No motor deficits Eye Exam: PERRL/EOMI, eyes nml inspection Ears, Nose, Throat Exam: normal ENT inspection, TMs normal, pharynx normal, moist mucous membranes Neck Exam: normal inspection, non-tender, supple, full range of motion Respiratory Exam: normal breath sounds, lungs clear, No respiratory distress Cardiovascular Exam: regular rate/rhythm, normal heart sounds, normal peripheral pulses Gastrointestinal/Abdomen Exam: soft, normal bowel sounds, No tenderness, No mass Back Exam: normal inspection, normal range of motion, No CVA tenderness, No vertebral tenderness Extremity Exam: normal inspection, normal range of motion, pelvis stable Skin Exam: normal color, warm, dry, No rash Lymphatic Exam: No adenopathy Results - Labs Lab/Micro Results: Lab Results-Last 24 Hours 01/18/24 01/18/24 01/18/24 Range/Units 11:13 12:25 12:25 WBC 4.2 L (4.23-9.07) x10^3/uL RBC 3.62 L (4.63-6.08) x10^6/uL Hgb 10.0 L (13.7-17.5) g/dL Hct 32.5 L (40.1-51.0) % MCV 89.8 (79.0-92.2) fL MCH 27.6 (25.7-32.2) pg MCHC 30.8 L (32.3-36.5) g/dL RDW 18.0 H (11.6-14.4) % Plt Count 127 L (163-337) x10^3/uL MPV 10.4 (9.4-12.4) fL Gran % 81.8 H (34.0-67.9) % Immature Gran % (Auto) 0.5 H (0.001-0.429) % Nucleat RBC Rel Count 0.0 (0.00-0.2) % Eos # (Auto) 0.06 (0.04-0.54) x10^3/uL Immature Gran # (Auto) 0.02 (0.001-0.031) x10^3u/L Absolute Lymphs (auto) 0.35 L (1.32-3.57) x10^3/uL Absolute Monos (auto) 0.31 (0.30-0.82) x10^3/uL Absolute Nucleated RBC 0.00 (0.00-0.012) x10^3u/L Lymphocytes % 8.3 L (21.8-53.1) % Monocytes % 7.3 (5.3-12.2) % Eosinophils % 1.4 (0.8-7.0) % Basophils % 0.7 (0.2-1.2) % Absolute Granulocytes 3.45 (1.78-5.38) x10^3/uL Basophils # 0.03 (0.01-0.08) x10^3/uL Sodium 137 (135-145) mmol/L Potassium 4.7 (3.5-5.1) mmol/L Chloride 105 (98-107) mmol/L Carbon Dioxide 19 L (22-30) mmol/L Anion Gap 17.2 H (5-15) MEQ/L BUN 40 H (9-20) mg/dL Creatinine 1.91 H (0.66-1.25) mg/dL Estimated GFR 33.5 ML/MIN Glucose 125 H (74-106) mg/dL POC Glucometer (74 to 106) mg/dL Lactic Acid 1.6 (0.4-2.0) Calcium 9.2 (8.4-10.2) mg/dL Total Bilirubin 1.10 (0.2-1.3) mg/dL AST 29 (17-59) U/L ALT 21 (0-50) U/L Alkaline Phosphatase 94 (38-126) U/L Troponin I (0.000-0.033) ng/mL NT-Pro-B Natriuret Pep (<300) pg/mL Serum Total Protein 7.3 (6.3-8.2) g/dL Albumin 3.7 (3.5-5.0) g/dL Procalcitonin (0.030-0.080) ng/mL Urine Color (Yellow) Urine Appearance (Clear) Urine pH (4.6-8.0) Ur Specific [place] (1.005-1.030) Urine Protein (Negative) Urine Glucose (UA) (Negative) mg/dL Urine Ketones (Negative) Urine Blood (Negative) Urine Nitrite (Negative) Urine Bilirubin (Negative) Urine Urobilinogen (0.2) mg/dL Ur Leukocyte Esterase (Negative) U Hyaline Cast (Auto) (0-2) /LPF Urine Microscopic RBC (0-5) /HPF Urine Microscopic WBC (0-5) /HPF Ur Epithelial Cells (None Seen) /HPF Urine Bacteria (None Seen) /HPF Urine Culture Reflexed (NO) Slides for Path Review YES 01/18/24 01/18/24 01/18/24 Range/Units 12:25 12:25 12:25 WBC (4.23-9.07) x10^3/uL RBC (4.63-6.08) x10^6/uL Hgb (13.7-17.5) g/dL Hct (40.1-51.0) % MCV (79.0-92.2) fL MCH (25.7-32.2) pg MCHC (32.3-36.5) g/dL RDW (11.6-14.4) % Plt Count (163-337) x10^3/uL MPV (9.4-12.4) fL Gran % (34.0-67.9) % Immature Gran % (Auto) (0.001-0.429) % Nucleat RBC Rel Count (0.00-0.2) % Eos # (Auto) (0.04-0.54) x10^3/uL Immature Gran # (Auto) (0.001-0.031) x10^3u/L Absolute Lymphs (auto) (1.32-3.57) x10^3/uL Absolute Monos (auto) (0.30-0.82) x10^3/uL Absolute Nucleated RBC (0.00-0.012) x10^3u/L Lymphocytes % (21.8-53.1) % Monocytes % (5.3-12.2) % Eosinophils % (0.8-7.0) % Basophils % (0.2-1.2) % Absolute Granulocytes (1.78-5.38) x10^3/uL Basophils # (0.01-0.08) x10^3/uL Sodium (135-145) mmol/L Potassium (3.5-5.1) mmol/L Chloride (98-107) mmol/L Carbon Dioxide (22-30) mmol/L Anion Gap (5-15) MEQ/L BUN (9-20) mg/dL Creatinine (0.66-1.25) mg/dL Estimated GFR ML/MIN Glucose (74-106) mg/dL POC Glucometer (74 to 106) mg/dL Lactic Acid (0.4-2.0) Calcium (8.4-10.2) mg/dL Total Bilirubin (0.2-1.3) mg/dL AST (17-59) U/L ALT (0-50) U/L Alkaline Phosphatase (38-126) U/L Troponin I 0.023 (0.000-0.033) ng/mL NT-Pro-B Natriuret Pep 32566 (<300) pg/mL Serum Total Protein (6.3-8.2) g/dL Albumin (3.5-5.0) g/dL Procalcitonin 0.141 H (0.030-0.080) ng/mL Urine Color (Yellow) Urine Appearance (Clear) Urine pH (4.6-8.0) Ur Specific [place] (1.005-1.030) Urine Protein (Negative) Urine Glucose (UA) (Negative) mg/dL Urine Ketones (Negative) Urine Blood (Negative) Urine Nitrite (Negative) Urine Bilirubin (Negative) Urine Urobilinogen (0.2) mg/dL Ur Leukocyte Esterase (Negative) U Hyaline Cast (Auto) (0-2) /LPF Urine Microscopic RBC (0-5) /HPF Urine Microscopic WBC (0-5) /HPF Ur Epithelial Cells (None Seen) /HPF Urine Bacteria (None Seen) /HPF Urine Culture Reflexed (NO) Slides for Path Review 01/18/24 01/18/24 Range/Units 13:48 17:19 WBC (4.23-9.07) x10^3/uL RBC (4.63-6.08) x10^6/uL Hgb (13.7-17.5) g/dL Hct (40.1-51.0) % MCV (79.0-92.2) fL MCH (25.7-32.2) pg MCHC (32.3-36.5) g/dL RDW (11.6-14.4) % Plt Count (163-337) x10^3/uL MPV (9.4-12.4) fL Gran % (34.0-67.9) % Immature Gran % (Auto) (0.001-0.429) % Nucleat RBC Rel Count (0.00-0.2) % Eos # (Auto) (0.04-0.54) x10^3/uL Immature Gran # (Auto) (0.001-0.031) x10^3u/L Absolute Lymphs (auto) (1.32-3.57) x10^3/uL Absolute Monos (auto) (0.30-0.82) x10^3/uL Absolute Nucleated RBC (0.00-0.012) x10^3u/L Lymphocytes % (21.8-53.1) % Monocytes % (5.3-12.2) % Eosinophils % (0.8-7.0) % Basophils % (0.2-1.2) % Absolute Granulocytes (1.78-5.38) x10^3/uL Basophils # (0.01-0.08) x10^3/uL Sodium (135-145) mmol/L Potassium (3.5-5.1) mmol/L Chloride (98-107) mmol/L Carbon Dioxide (22-30) mmol/L Anion Gap (5-15) MEQ/L BUN (9-20) mg/dL Creatinine (0.66-1.25) mg/dL Estimated GFR ML/MIN Glucose (74-106) mg/dL POC Glucometer 133 H (74 to 106) mg/dL Lactic Acid (0.4-2.0) Calcium (8.4-10.2) mg/dL Total Bilirubin (0.2-1.3) mg/dL AST (17-59) U/L ALT (0-50) U/L Alkaline Phosphatase (38-126) U/L Troponin I (0.000-0.033) ng/mL NT-Pro-B Natriuret Pep (<300) pg/mL Serum Total Protein (6.3-8.2) g/dL Albumin (3.5-5.0) g/dL Procalcitonin (0.030-0.080) ng/mL Urine Color Yellow (Yellow) Urine Appearance Clear (Clear) Urine pH 5.0 (4.6-8.0) Ur Specific [place] 1.010 (1.005-1.030) Urine Protein 30 (Negative) Urine Glucose (UA) 100 A (Negative) mg/dL Urine Ketones Trace A (Negative) Urine Blood Negative (Negative) Urine Nitrite Negative (Negative) Urine Bilirubin Negative (Negative) Urine Urobilinogen 0.2 (0.2) mg/dL Ur Leukocyte Esterase Negative (Negative) U Hyaline Cast (Auto) 6-10 A (0-2) /LPF Urine Microscopic RBC 0-2 (0-5) /HPF Urine Microscopic WBC 0-2 (0-5) /HPF Ur Epithelial Cells None Seen (None Seen) /HPF Urine Bacteria None Seen (None Seen) /HPF Urine Culture Reflexed NO (NO) Slides for Path Review Accuchecks Date 01/18/24 Time 17:21 - Radiology Impressions Radiology Exams & Impressions: Radiology Procedures Category Date Time Status CHEST 1 VIEW (PORTABLE) Stat Exams 01/18/24 14:33 Completed HEAD WITHOUT CONTRAST [CT] Stat Exams 01/18/24 10:58 Completed Assessment/Plan (1) CHF (congestive heart failure) Current Visit: Yes Status: Acute Qualifiers: Heart failure chronicity: acute Assessment & Plan: - CXR shows - Lasix IV gave in ER - I&O's - Trop negative- trend - tele - BNP 32223 - CXR shows pulm edema - Echo 07/19/23- EF 15-20% IMPRESSION: 1. SEVERE LEFT VENTRICULAR SYSTOLIC DYSFUNCTION. 2. SEVERE ASSYMMETRIC LEFT VENTRICULAR HYPERTROPHY INVOLVING THE INTE RVENTRICULAR SEPTUM. 3. BORDERLINE LEFT ATRIAL DILATATION. 4. MILD TRICUSPID REGURGITATION. 5. MILD MITRAL REGURGITATION. 6. NORMAL RIGHT VENTRICULAR SYSTOLIC PRESSURE. Code(s): I50.9 - HEART FAILURE, UNSPECIFIED (2) Acute on chronic renal failure Current Visit: Yes Status: Acute Assessment & Plan: - Creat 1.91, baseline 1.75- trend - Anion gap 17.2 - Encouraged oral intake d/t fluid restrictions at hospital. Code(s): N17.9 - ACUTE KIDNEY FAILURE, UNSPECIFIED; N18.9 - CHRONIC KIDNEY DISEASE, UNSPECIFIED (3) Open wound of both legs with complication Current Visit: Yes Status: Acute Assessment & Plan: - IV antibiotics Linezoid and Zosyn - podiatry consult - Wound cultures from 01/13 show Pseudomonas BLLE - repeat wound cultures completed in ER. - per daughter + green drainage this past weekend and then confusion started. - XR BLLE Code(s): S81.801A - UNSPECIFIED OPEN WOUND, RIGHT LOWER LEG, INITIAL ENCOUNTER; S81.802A - UNSPECIFIED OPEN WOUND, LEFT LOWER LEG, INITIAL ENCOUNTER (4) Cellulitis Current Visit: Yes Status: Acute Qualifiers: Site of cellulitis: extremity Site of cellulitis of extremity: lower extremity Assessment & Plan: - BLLE - Doxycycline IV started in ER, - IV antibiotics Linezoid and Zosyn started IIP - podiatry consult - Wound cultures from 01/13 show Pseudomonas BLLE - repeat wound cultures completed in ER. - per daughter + green drainage this past weekend and then confusion started. Code(s): L03.90 - CELLULITIS, UNSPECIFIED (5) Confusion Current Visit: Yes Status: Acute Assessment & Plan: - CXR and CT head reviewed. - CBC and CMP reviewed. - Daughter reports pt has increased confusion with infections Code(s): R41.0 - DISORIENTATION, UNSPECIFIED (6) Hallucination Current Visit: Yes Status: Acute Assessment & Plan: - CT head negative for acute concern - Monitor Code(s): R44.3 - HALLUCINATIONS, UNSPECIFIED (7) Thrombocytopenia Current Visit: Yes Status: Acute Assessment & Plan: - Platelets 127- trend - Daughter does not want further workup for this or referral OP to oncology/heamtology. (8) Diabetes type 2, controlled Current Visit: No Status: Chronic Qualifiers: Assessment & Plan: - 11/30/23 A1C 7.64 - Controlled - Continue accuchecks ac/hs, humalog and lantus dosing - Carb consistent diet Code(s): E11.9 - TYPE 2 DIABETES MELLITUS WITHOUT COMPLICATIONS (9) Hypothyroidism Current Visit: Yes Status: Chronic Assessment & Plan: - Continue synthroid - 11/30/23 TSH 3.9- WNL Code(s): E03.9 - HYPOTHYROIDISM, UNSPECIFIED (10) Weakness Current Visit: Yes Status: Acute Assessment & Plan: - Per daughter, pt was up and walking with a cane in October - Lives in ECF - PT/OT eval and treat Code(s): R53.1 - WEAKNESS (11) BPH (benign prostatic hyperplasia) Current Visit: Yes Status: Chronic Assessment & Plan: - Continue Flomax VTE: Xarelto PPI: Protonix Next of KIN: daughter D/C plan: 3-4 days Code status: SCO/DNR Code(s): N40.0 - BENIGN PROSTATIC HYPERPLASIA WITHOUT LOWER URINRY TRACT SYMP Telemedicine Encounter - Telemedicine Encounter Telemedicine Encounter: "The entirety of this encounter was performed via Telemedicine" This visit was performed using real-time audio and video connection between my location and thepatients locationwith the assistance of a surrogateat the patients location. Written or verbal consent was obtained from the patient/guardian to perform this [facility]. Any patient questions regarding the telemedicine interaction were answered.
[2024-01-18] MEDS ORDERED: VIBRAMYCIN 100 MG*** 100 MG in Dextrose 5%/Water IV Soln. 100ML PLUS BAG 100 ML IV SCH (22:00)
[2024-01-18] MEDS ORDERED: Lasix 40 MG PO SCH (22:00)
[2024-01-18] MEDS ORDERED: LASIX 20 MG PO SCH (22:00)
[2024-01-18] MEDS: Zyvox 600 MG IV PREMIX*** 300 ML IV SCH (23:31)
[2024-01-18] MEDS: Flomax 0.4 MG PO SCH (23:32)
[2024-01-18] MEDS: Klor Con PO SCH (23:32)
[2024-01-18] MEDS: XARELTO 10 MG TABLET PO SCH (23:32)
[2024-01-18] MEDS: Acidophilus TABLET PO SCH (23:32)
[2024-01-18] MEDS: FEOSOL 325 MG PO SCH (23:32)
[2024-01-19] MEDS: NON-FORMULARY ITEM (Rivaroxaban [Xarelto] 2.5 MG Tablet) PO SCH (01:15)
[2024-01-19] MEDS: NON-FORMULARY ITEM (Potassium Chloride [Potassium Chloride] 20 MEQ Tablet.Er) PO SCH (01:15)
[2024-01-19] MEDS: Klor Con PO SCH ×2 (01:16→01:17)
[2024-01-19 01:24] LABS: Hematocrit 31.7 % (40.1-51.0); Hemoglobin 9.6 g/dL (13.7-17.5); Mean Cell Volume 90.1 fL (79.0-92.2); Mean Corpuscular Hemoglobin 27.3 pg (25.7-32.2); Mean Corpuscular Hgb Concent. 30.3 g/dL (32.3-36.5); Mean Platelet Volume 10.1 fL (9.4-12.4); Platelet Count 113 x10^3/uL (163-337); Red Blood Count 3.52 x10^6/uL (4.63-6.08); White Blood Count 3.7 x10^3/uL (4.23-9.07)
[2024-01-19 01:38] LABS: ALBUMIN 3.2 g/dL (3.5-5.0); ANION GAP 20.5 MEQ/L (5-15); BILIRUBIN,TOTAL 0.9 mg/dL (0.2-1.3); Calcium 8.8 mg/dL (8.4-10.2); Creatinine 1 1.85 mg/dL (0.66-1.25); EST GLOMERULAR FILTRATION RATE 34.8 ML/MIN; Total Protein 6.3 g/dL (6.3-8.2)
[2024-01-19] MEDS ORDERED: PIPERACILLIN/TAZOBACTAM IV ONE ×2 (01:49→06:33)
[2024-01-19] MEDS ORDERED: Sodium Chloride 100ML MINI-BAG PLUS 100 ML IV ONE ×2 (01:49→06:33)
[2024-01-19] MEDS: PIPERACILLIN/TAZOBACTAM 3.375 GM in Sodium Chloride 100ML MINI-BAG PLUS 100 ML IV SCH (01:53)
--- NOTE | 2024-01-19 08:41 | XRAY ---
Indication: Infections. Comparison: None 2 view right lower leg demonstrates osteopenia and extensive scattered arteriosclerotic calcifications with proximal arterial stent. No other bony, articular, or soft tissue abnormalities.
--- NOTE | 2024-01-19 08:43 | XRAY ---
Indication: Infections. Comparison: None 2 view left lower leg demonstrates osteopenia, small plantar heel spur, and extensive scattered arteriosclerotic calcifications. No other bony, articular, or soft tissue abnormalities.
[2024-01-19] MEDS: HUMALOG SQ SCH (09:31)
[2024-01-19] MEDS ORDERED: NON-FORMULARY ITEM (Citalopram Hydrobromide [Celexa] 10 MG Tablet) PO SCH (10:00)
--- NOTE | 2024-01-19 11:35 | PCM.NOTE ---
Date and Time: 01/19/24 1128 Subjective Assessment: 01/18/24 is a 88 year old male with PMHX of CVA 2006, CHF, hyperlipidemia, HTN, CO, Type II DM, OA, CKD, and CAD. Pt presents to emergency department via EMS from the [facility] for evaluation of abnormal labs, possible lower extremity infection confusion and hallucination. Patient states he sees little girls floating but he knows they are not real. Patient is cognizant and aware of the hallucinations. Daughter states he developed green drainage from BLLE Wednesday. He then became confused the next day. She reports he often has confusion with extreme infections. Wound cultures done Wednesday at [facility] show pseudomas for BLLE. He had not been on any antibiotics until today. Repeat wound cultures completed in ER. BC x2 pending. Pt started on IV antibiotics and changed to broad spectrum antibiotics IP. Podiatry consulted and XR's of BLLE ordered. IV lasix gave in ER for CHF exacerbation as seen on CXR. Per pt's daughter pt had an angiogram on and needs further surgery of LLE for better blood flow. This is to be done per [facility] [employer] Dr. Perez. Pt follows Dr. Huggins for nephrology. Daughter would also like pt to work with PT/OT a while here as pt was up and walking with a cane in October. Pt is pleasantly confused and denies any further concerns at this time. 01/19/24 Pt resting in bed. He is still very confused but denies hallucinations. He is able to tell me he is at [facility]. He is pending podiatry eval of BLLE. Awaiting cultures of wounds and BC x2 from ER yesterday. Continue broad spectrum antibiotics. XR's of BLLE do not show osteomyelitis. Co2 16 and oral sodium bicarb started. He denies any further concerns at this time. - Review of Systems Constitutional: Weakness, No Fever, No Chills Eyes: No Symptoms Ears, Nose, & Throat: No Symptoms Respiratory: No Cough, No Short Of Breath Cardiac: No Chest Pain, No Edema, No Syncope Abdominal/Gastrointestinal: No Abdominal Pain, No Nausea, No Vomiting, No Diarrhea Genitourinary Symptoms: No Dysuria Musculoskeletal: No Back Pain, No Neck Pain Skin: Skin Lesions (BLLE), No Rash Neurological: Lethargy, No Dizziness, No Focal Weakness, No Sensory Changes Psychological: No Symptoms Endocrine: No Symptoms Hematologic/Lymphatic: No Symptoms Immunological/Allergic: No Symptoms Objective Exam General Appearance: no apparent distress, alert Neurologic Exam: cooperative, normal mood/affect, nml cerebellar function, sensation nml, disoriented, confusion, motor weakness, No motor deficits Skin Exam: normal color, warm, dry, other (BLLE wrapped, cellulitis with green drainage per nursing staff) Wound Assessment: Skin/Wound Assessment Wound/Incision Assessment Start: 01/18/24 18:05 Text: Status: Active Freq: Q6H Protocol: Document 01/19/24 06:00 KD (Rec: 01/19/24 08:06 KD [id number]) Wound/Incision Assessment Left Great Toe Wound Assessment Shift Assessment Wound Type Stasis Ulcer Wound Stage Non Pressure Wound General Appearance Open to air,Reddened,Blackened Wound Bed Greatest Portion Red (Granulation) Wound Bed Lesser Portion Yellow (Slough),Black (Eschar) Comment open to air Bilateral Upper Legs Wound Assessment Shift Assessment Wound Type blanchable redness Wound Stage Non Pressure Wound General Appearance Open to air,Reddened Wound Bed Greatest Portion Red (Granulation) Surrounding Tissue [place] Topical Solution/Irrigant Medicated Ointment Comment blanchable redness; barrier cream applied Bilateral Buttocks Wound Assessment Shift Assessment Wound Type Blanchable redness Wound Stage Non Pressure Wound General Appearance Open to air,Reddened Wound Bed Greatest Portion Red (Granulation) Surrounding Tissue [place] Topical Solution/Irrigant Medicated Ointment Comment blanchable redness; barrier cream applied Right Groin Wound Assessment Shift Assessment Wound Type redness & excoriation Wound Stage Non Pressure Wound General Appearance Open to air,Reddened Wound Bed Greatest Portion Red (Granulation),Shiny Surrounding Tissue [place] Topical Solution/Irrigant Medicated Ointment Comment barrier cream applied Left Groin Wound Assessment Shift Assessment Wound Type redness Wound Stage Non Pressure Wound General Appearance Open to air,Blackened Wound Bed Greatest Portion Red (Granulation) Surrounding Tissue [place] Topical Solution/Irrigant Medicated Ointment Comment barrier cream applied Wound Photo Photo Taken No Eye Exam: PERRL, EOMI, eyes nml inspection Ears, Nose, Throat Exam: normal ENT inspection, pharynx normal, moist mucous membranes Neck Exam: normal inspection, non-tender, supple, full range of motion Respiratory Exam: normal breath sounds, lungs clear, No respiratory distress Cardiovascular Exam: regular rate/rhythm, normal heart sounds Gastrointestinal/Abdomen Exam: soft, No tenderness, No mass Extremity Exam: normal inspection, normal range of motion Back Exam: normal inspection, normal range of motion, No CVA tenderness, No vertebral tenderness Male Genitalia Exam: deferred Rectal Exam: deferred Objective Data Vital Signs: Vital Signs - 24 hr Temp Pulse Resp BP BP Pulse Ox 01/19/24 08:00 97.7 F 83 16 136/72 90 L 01/19/24 07:59 95 01/19/24 04:00 97.5 F 86 17 119/78 95 01/19/24 00:00 97.7 F 95 H 18 148/74 94 L 01/18/24 22:52 98 01/18/24 20:00 97.6 F 87 16 136/81 95 01/18/24 18:15 97.6 F 87 16 136/81 95 01/18/24 17:00 83 12 127/69 99 01/18/24 16:30 80 11 L 127/75 98 01/18/24 16:00 85 22 122/60 01/18/24 15:59 96 01/18/24 15:30 85 15 122/66 01/18/24 15:00 88 18 115/63 97 01/18/24 14:30 90 12 133/67 96 01/18/24 14:00 92 H 17 128/78 97 01/18/24 13:31 96 H 16 134/74 01/18/24 13:00 89 11 L 133/81 97 01/18/24 12:32 87 10 L 126/104 01/18/24 12:00 91 H 19 148/82 92 L 01/18/24 11:42 92 H 22 137/78 Pain Assessment - Last Documented Pain Intensity 2 Intake and Output: Intake & Output 01/16/24 01/17/24 01/18/24 01/19/24 11:59 11:59 11:59 11:59 Intake Total 700 Output Total 300 Balance 400 Weight 87.9 kg 87 kg Lab Results: Lab Results-Last 24 Hours 01/18/24 01/18/24 01/18/24 Range/Units 11:13 12:25 12:25 WBC 4.2 L (4.23-9.07) x10^3/uL RBC 3.62 L (4.63-6.08) x10^6/uL Hgb 10.0 L (13.7-17.5) g/dL Hct 32.5 L (40.1-51.0) % MCV 89.8 (79.0-92.2) fL MCH 27.6 (25.7-32.2) pg MCHC 30.8 L (32.3-36.5) g/dL RDW 18.0 H (11.6-14.4) % Plt Count 127 L (163-337) x10^3/uL MPV 10.4 (9.4-12.4) fL Gran % 81.8 H (34.0-67.9) % Immature Gran % (Auto) 0.5 H (0.001-0.429) % Nucleat RBC Rel Count 0.0 (0.00-0.2) % Eos # (Auto) 0.06 (0.04-0.54) x10^3/uL Immature Gran # (Auto) 0.02 (0.001-0.031) x10^3u/L Absolute Lymphs (auto) 0.35 L (1.32-3.57) x10^3/uL Absolute Monos (auto) 0.31 (0.30-0.82) x10^3/uL Absolute Nucleated RBC 0.00 (0.00-0.012) x10^3u/L Lymphocytes % 8.3 L (21.8-53.1) % Monocytes % 7.3 (5.3-12.2) % Eosinophils % 1.4 (0.8-7.0) % Basophils % 0.7 (0.2-1.2) % Absolute Granulocytes 3.45 (1.78-5.38) x10^3/uL Basophils # 0.03 (0.01-0.08) x10^3/uL Sodium 137 (135-145) mmol/L Potassium 4.7 (3.5-5.1) mmol/L Chloride 105 (98-107) mmol/L Carbon Dioxide 19 L (22-30) mmol/L Anion Gap 17.2 H (5-15) MEQ/L BUN 40 H (9-20) mg/dL Creatinine 1.91 H (0.66-1.25) mg/dL Estimated GFR 33.5 ML/MIN Glucose 125 H (74-106) mg/dL POC Glucometer (74 to 106) mg/dL Lactic Acid 1.6 (0.4-2.0) Calcium 9.2 (8.4-10.2) mg/dL Total Bilirubin 1.10 (0.2-1.3) mg/dL AST 29 (17-59) U/L ALT 21 (0-50) U/L Alkaline Phosphatase 94 (38-126) U/L Troponin I (0.000-0.033) ng/mL NT-Pro-B Natriuret Pep (<300) pg/mL Serum Total Protein 7.3 (6.3-8.2) g/dL Albumin 3.7 (3.5-5.0) g/dL Prealbumin (17.6-36.0) mg/dL Procalcitonin (0.030-0.080) ng/mL Urine Color (Yellow) Urine Appearance (Clear) Urine pH (4.6-8.0) Ur Specific [place] (1.005-1.030) Urine Protein (Negative) Urine Glucose (UA) (Negative) mg/dL Urine Ketones (Negative) Urine Blood (Negative) Urine Nitrite (Negative) Urine Bilirubin (Negative) Urine Urobilinogen (0.2) mg/dL Ur Leukocyte Esterase (Negative) U Hyaline Cast (Auto) (0-2) /LPF Urine Microscopic RBC (0-5) /HPF Urine Microscopic WBC (0-5) /HPF Ur Epithelial Cells (None Seen) /HPF Urine Bacteria (None Seen) /HPF Urine Culture Reflexed (NO) Slides for Path Review YES 01/18/24 01/18/24 01/18/24 Range/Units 12:25 12:25 12:25 WBC (4.23-9.07) x10^3/uL RBC (4.63-6.08) x10^6/uL Hgb (13.7-17.5) g/dL Hct (40.1-51.0) % MCV (79.0-92.2) fL MCH (25.7-32.2) pg MCHC (32.3-36.5) g/dL RDW (11.6-14.4) % Plt Count (163-337) x10^3/uL MPV (9.4-12.4) fL Gran % (34.0-67.9) % Immature Gran % (Auto) (0.001-0.429) % Nucleat RBC Rel Count (0.00-0.2) % Eos # (Auto) (0.04-0.54) x10^3/uL Immature Gran # (Auto) (0.001-0.031) x10^3u/L Absolute Lymphs (auto) (1.32-3.57) x10^3/uL Absolute Monos (auto) (0.30-0.82) x10^3/uL Absolute Nucleated RBC (0.00-0.012) x10^3u/L Lymphocytes % (21.8-53.1) % Monocytes % (5.3-12.2) % Eosinophils % (0.8-7.0) % Basophils % (0.2-1.2) % Absolute Granulocytes (1.78-5.38) x10^3/uL Basophils # (0.01-0.08) x10^3/uL Sodium (135-145) mmol/L Potassium (3.5-5.1) mmol/L Chloride (98-107) mmol/L Carbon Dioxide (22-30) mmol/L Anion Gap (5-15) MEQ/L BUN (9-20) mg/dL Creatinine (0.66-1.25) mg/dL Estimated GFR ML/MIN Glucose (74-106) mg/dL POC Glucometer (74 to 106) mg/dL Lactic Acid (0.4-2.0) Calcium (8.4-10.2) mg/dL Total Bilirubin (0.2-1.3) mg/dL AST (17-59) U/L ALT (0-50) U/L Alkaline Phosphatase (38-126) U/L Troponin I 0.023 (0.000-0.033) ng/mL NT-Pro-B Natriuret Pep 34909 (<300) pg/mL Serum Total Protein (6.3-8.2) g/dL Albumin (3.5-5.0) g/dL Prealbumin (17.6-36.0) mg/dL Procalcitonin 0.141 H (0.030-0.080) ng/mL Urine Color (Yellow) Urine Appearance (Clear) Urine pH (4.6-8.0) Ur Specific [place] (1.005-1.030) Urine Protein (Negative) Urine Glucose (UA) (Negative) mg/dL Urine Ketones (Negative) Urine Blood (Negative) Urine Nitrite (Negative) Urine Bilirubin (Negative) Urine Urobilinogen (0.2) mg/dL Ur Leukocyte Esterase (Negative) U Hyaline Cast (Auto) (0-2) /LPF Urine Microscopic RBC (0-5) /HPF Urine Microscopic WBC (0-5) /HPF Ur Epithelial Cells (None Seen) /HPF Urine Bacteria (None Seen) /HPF Urine Culture Reflexed (NO) Slides for Path Review 01/18/24 01/18/24 01/18/24 Range/Units 12:25 13:48 17:19 WBC (4.23-9.07) x10^3/uL RBC (4.63-6.08) x10^6/uL Hgb (13.7-17.5) g/dL Hct (40.1-51.0) % MCV (79.0-92.2) fL MCH (25.7-32.2) pg MCHC (32.3-36.5) g/dL RDW (11.6-14.4) % Plt Count (163-337) x10^3/uL MPV (9.4-12.4) fL Gran % (34.0-67.9) % Immature Gran % (Auto) (0.001-0.429) % Nucleat RBC Rel Count (0.00-0.2) % Eos # (Auto) (0.04-0.54) x10^3/uL Immature Gran # (Auto) (0.001-0.031) x10^3u/L Absolute Lymphs (auto) (1.32-3.57) x10^3/uL Absolute Monos (auto) (0.30-0.82) x10^3/uL Absolute Nucleated RBC (0.00-0.012) x10^3u/L Lymphocytes % (21.8-53.1) % Monocytes % (5.3-12.2) % Eosinophils % (0.8-7.0) % Basophils % (0.2-1.2) % Absolute Granulocytes (1.78-5.38) x10^3/uL Basophils # (0.01-0.08) x10^3/uL Sodium (135-145) mmol/L Potassium (3.5-5.1) mmol/L Chloride (98-107) mmol/L Carbon Dioxide (22-30) mmol/L Anion Gap (5-15) MEQ/L BUN (9-20) mg/dL Creatinine (0.66-1.25) mg/dL Estimated GFR ML/MIN Glucose (74-106) mg/dL POC Glucometer 133 H (74 to 106) mg/dL Lactic Acid (0.4-2.0) Calcium (8.4-10.2) mg/dL Total Bilirubin (0.2-1.3) mg/dL AST (17-59) U/L ALT (0-50) U/L Alkaline Phosphatase (38-126) U/L Troponin I (0.000-0.033) ng/mL NT-Pro-B Natriuret Pep (<300) pg/mL Serum Total Protein (6.3-8.2) g/dL Albumin (3.5-5.0) g/dL Prealbumin 10.09 L (17.6-36.0) mg/dL Procalcitonin (0.030-0.080) ng/mL Urine Color Yellow (Yellow) Urine Appearance Clear (Clear) Urine pH 5.0 (4.6-8.0) Ur Specific [place] 1.010 (1.005-1.030) Urine Protein 30 (Negative) Urine Glucose (UA) 100 A (Negative) mg/dL Urine Ketones Trace A (Negative) Urine Blood Negative (Negative) Urine Nitrite Negative (Negative) Urine Bilirubin Negative (Negative) Urine Urobilinogen 0.2 (0.2) mg/dL Ur Leukocyte Esterase Negative (Negative) U Hyaline Cast (Auto) 6-10 A (0-2) /LPF Urine Microscopic RBC 0-2 (0-5) /HPF Urine Microscopic WBC 0-2 (0-5) /HPF Ur Epithelial Cells None Seen (None Seen) /HPF Urine Bacteria None Seen (None Seen) /HPF Urine Culture Reflexed NO (NO) Slides for Path Review 01/18/24 01/18/24 01/19/24 Range/Units 21:22 21:55 01:22 WBC (4.23-9.07) x10^3/uL RBC (4.63-6.08) x10^6/uL Hgb (13.7-17.5) g/dL Hct (40.1-51.0) % MCV (79.0-92.2) fL MCH (25.7-32.2) pg MCHC (32.3-36.5) g/dL RDW (11.6-14.4) % Plt Count (163-337) x10^3/uL MPV (9.4-12.4) fL Gran % (34.0-67.9) % Immature Gran % (Auto) (0.001-0.429) % Nucleat RBC Rel Count (0.00-0.2) % Eos # (Auto) (0.04-0.54) x10^3/uL Immature Gran # (Auto) (0.001-0.031) x10^3u/L Absolute Lymphs (auto) (1.32-3.57) x10^3/uL Absolute Monos (auto) (0.30-0.82) x10^3/uL Absolute Nucleated RBC (0.00-0.012) x10^3u/L Lymphocytes % (21.8-53.1) % Monocytes % (5.3-12.2) % Eosinophils % (0.8-7.0) % Basophils % (0.2-1.2) % Absolute Granulocytes (1.78-5.38) x10^3/uL Basophils # (0.01-0.08) x10^3/uL Sodium (135-145) mmol/L Potassium (3.5-5.1) mmol/L Chloride (98-107) mmol/L Carbon Dioxide (22-30) mmol/L Anion Gap (5-15) MEQ/L BUN (9-20) mg/dL Creatinine (0.66-1.25) mg/dL Estimated GFR ML/MIN Glucose (74-106) mg/dL POC Glucometer 131 H (74 to 106) mg/dL Lactic Acid (0.4-2.0) Calcium (8.4-10.2) mg/dL Total Bilirubin (0.2-1.3) mg/dL AST (17-59) U/L ALT (0-50) U/L Alkaline Phosphatase (38-126) U/L Troponin I 0.018 0.017 (0.000-0.033) ng/mL NT-Pro-B Natriuret Pep (<300) pg/mL Serum Total Protein (6.3-8.2) g/dL Albumin (3.5-5.0) g/dL Prealbumin (17.6-36.0) mg/dL Procalcitonin (0.030-0.080) ng/mL Urine Color (Yellow) Urine Appearance (Clear) Urine pH (4.6-8.0) Ur Specific [place] (1.005-1.030) Urine Protein (Negative) Urine Glucose (UA) (Negative) mg/dL Urine Ketones (Negative) Urine Blood (Negative) Urine Nitrite (Negative) Urine Bilirubin (Negative) Urine Urobilinogen (0.2) mg/dL Ur Leukocyte Esterase (Negative) U Hyaline Cast (Auto) (0-2) /LPF Urine Microscopic RBC (0-5) /HPF Urine Microscopic WBC (0-5) /HPF Ur Epithelial Cells (None Seen) /HPF Urine Bacteria (None Seen) /HPF Urine Culture Reflexed (NO) Slides for Path Review 01/19/24 01/19/24 01/19/24 Range/Units 01:22 01:22 07:45 WBC 3.7 L (4.23-9.07) x10^3/uL RBC 3.52 L (4.63-6.08) x10^6/uL Hgb 9.6 L (13.7-17.5) g/dL Hct 31.7 L (40.1-51.0) % MCV 90.1 (79.0-92.2) fL MCH 27.3 (25.7-32.2) pg MCHC 30.3 L (32.3-36.5) g/dL RDW 18.0 H (11.6-14.4) % Plt Count 113 L (163-337) x10^3/uL MPV 10.1 (9.4-12.4) fL Gran % (34.0-67.9) % Immature Gran % (Auto) (0.001-0.429) % Nucleat RBC Rel Count (0.00-0.2) % Eos # (Auto) (0.04-0.54) x10^3/uL Immature Gran # (Auto) (0.001-0.031) x10^3u/L Absolute Lymphs (auto) (1.32-3.57) x10^3/uL Absolute Monos (auto) (0.30-0.82) x10^3/uL Absolute Nucleated RBC (0.00-0.012) x10^3u/L Lymphocytes % (21.8-53.1) % Monocytes % (5.3-12.2) % Eosinophils % (0.8-7.0) % Basophils % (0.2-1.2) % Absolute Granulocytes (1.78-5.38) x10^3/uL Basophils # (0.01-0.08) x10^3/uL Sodium 135 (135-145) mmol/L Potassium 5.0 (3.5-5.1) mmol/L Chloride 104 (98-107) mmol/L Carbon Dioxide 16 L* (22-30) mmol/L Anion Gap 20.5 H (5-15) MEQ/L BUN 40 H (9-20) mg/dL Creatinine 1.85 H (0.66-1.25) mg/dL Estimated GFR 34.8 ML/MIN Glucose 210 H (74-106) mg/dL POC Glucometer 175 H (74 to 106) mg/dL Lactic Acid (0.4-2.0) Calcium 8.8 (8.4-10.2) mg/dL Total Bilirubin 0.90 (0.2-1.3) mg/dL AST 26 (17-59) U/L ALT 20 (0-50) U/L Alkaline Phosphatase 84 (38-126) U/L Troponin I (0.000-0.033) ng/mL NT-Pro-B Natriuret Pep (<300) pg/mL Serum Total Protein 6.3 (6.3-8.2) g/dL Albumin 3.2 L (3.5-5.0) g/dL Prealbumin (17.6-36.0) mg/dL Procalcitonin (0.030-0.080) ng/mL Urine Color (Yellow) Urine Appearance (Clear) Urine pH (4.6-8.0) Ur Specific [place] (1.005-1.030) Urine Protein (Negative) Urine Glucose (UA) (Negative) mg/dL Urine Ketones (Negative) Urine Blood (Negative) Urine Nitrite (Negative) Urine Bilirubin (Negative) Urine Urobilinogen (0.2) mg/dL Ur Leukocyte Esterase (Negative) U Hyaline Cast (Auto) (0-2) /LPF Urine Microscopic RBC (0-5) /HPF Urine Microscopic WBC (0-5) /HPF Ur Epithelial Cells (None Seen) /HPF Urine Bacteria (None Seen) /HPF Urine Culture Reflexed (NO) Slides for Path Review Radiology Exams: Radiology Procedures Category Date Time Status CHEST 1 VIEW (PORTABLE) Stat Exams 01/18/24 14:33 Completed HEAD WITHOUT CONTRAST [CT] Stat Exams 01/18/24 10:58 Completed LOWER LEG Routine Exams 01/18/24 18:46 Completed LOWER LEG Routine Exams 01/18/24 18:58 Completed Multi-Disciplinary Progress Notes: Multi-Disciplinary Progress Notes 01/19/24 10:49 Case Management Note by Bettie Che S/Gregory DUMONT AT [facility]- PATIENT THERE UNDER TRADITIONAL MEDICARE- NO PRECERT NEEDED TO RETURN TO FACILITY. CAN RETURN WHEN MEDICALLY READY Initialized on 01/19/24 10:49 - END OF NOTE 01/19/24 07:23 Pharmacy Note by Brad Whitney Zosyn dose decreased to 2.25gm iv q6h per renal dosing policy. Est. crcl is 34ml/min. Initialized on 01/19/24 07:23 - END OF NOTE Assessment/Plan (1) CHF (congestive heart failure) Current Visit: Yes Status: Acute Qualifiers: Heart failure chronicity: acute Code(s): I50.9 - HEART FAILURE, UNSPECIFIED (2) Acute on chronic renal failure Current Visit: Yes Status: Acute Code(s): N17.9 - ACUTE KIDNEY FAILURE, UNSPECIFIED; N18.9 - CHRONIC KIDNEY DISEASE, UNSPECIFIED (3) Open wound of both legs with complication Current Visit: Yes Status: Acute Code(s): S81.801A - UNSPECIFIED OPEN WOUND, RIGHT LOWER LEG, INITIAL ENCOUNTER; S81.802A - UNSPECIFIED OPEN WOUND, LEFT LOWER LEG, INITIAL ENCOUNTER (4) Cellulitis Current Visit: Yes Status: Acute Qualifiers: Site of cellulitis: extremity Site of cellulitis of extremity: lower ex tremity Code(s): L03.90 - CELLULITIS, UNSPECIFIED (5) Confusion Current Visit: Yes Status: Acute Code(s): R41.0 - DISORIENTATION, UNSPECIFIED (6) Hallucination Current Visit: Yes Status: Acute Code(s): R44.3 - HALLUCINATIONS, UNSPECIFIED (7) Thrombocytopenia Current Visit: Yes Status: Acute (8) Diabetes type 2, controlled Current Visit: No Status: Chronic Qualifiers: Code(s): E11.9 - TYPE 2 DIABETES MELLITUS WITHOUT COMPLICATIONS (9) Hypothyroidism Current Visit: Yes Status: Chronic Code(s): E03.9 - HYPOTHYROIDISM, UNSPECIFIED (10) Weakness Current Visit: Yes Status: Acute Code(s): R53.1 - WEAKNESS (11) BPH (benign prostatic hyperplasia) Current Visit: Yes Status: Chronic Assessment & Plan: (1) CHF (congestive heart failure) Current Visit: Yes Status: Acute Qualifiers: Heart failure chronicity: acute Assessment & Plan: - CXR shows - Lasix IV gave in ER - I&O's - Trop negative- trend - tele - BNP [id number] - CXR shows pulm edema - Echo 07/19/23- EF 15-20% IMPRESSION: 1. SEVERE LEFT VENTRICULAR SYSTOLIC DYSFUNCTION. 2. SEVERE ASSYMMETRIC LEFT VENTRICULAR HYPERTROPHY INVOLVING THE INTERVENTRICULAR SEPTUM. 3. BORDERLINE LEFT ATRIAL DILATATION. 4. MILD TRICUSPID REGURGITATION. 5. MILD MITRAL REGURGITATION. 6. NORMAL RIGHT VENTRICULAR SYSTOLIC PRESSURE. 01/18 -CMP reviewed - Continue Lasix 60mg PO BID- home dose Code(s): I50.9 - HEART FAILURE, UNSPECIFIED (2) Acute on chronic renal failure Current Visit: Yes Status: Acute Assessment & Plan: - Creat 1.91, baseline 1.75- trend - Anion gap 17.2 - Encouraged oral intake d/t fluid restrictions at hospital. 01/18 - Creat 1.85- near baseline - CMP reviewed - Continue Lasix 60mg PO BID- home dose Code(s): N17.9 - ACUTE KIDNEY FAILURE, UNSPECIFIED; N18.9 - CHRONIC KIDNEY DISEASE, UNSPECIFIED (3) Open wound of both legs with complication Current Visit: Yes Status: Acute Assessment & Plan: - IV antibiotics Linezoid and Zosyn - podiatry consult - Wound cultures from 01/13 show Pseudomonas BLLE - repeat wound cultures completed in ER. - BC x2 - per daughter + green drainage this past weekend and then confusion started. - XR BLLE reviewed- negative for osteomyelitis - CBC reviewed daily Code(s): S81.801A - UNSPECIFIED OPEN WOUND, RIGHT LOWER LEG, INITIAL ENCOUNTER; S81.802A - UNSPECIFIED OPEN WOUND, LEFT LOWER LEG, INITIAL ENCOUNTER (4) Cellulitis Current Visit: Yes Status: Acute Qualifiers: Site of cellulitis: extremity Site of cellulitis of extremity: lower extremity Assessment & Plan: - BLLE - Doxycycline IV started in ER, - IV antibiotics Linezoid and Zosyn started IIP - podiatry consult - Wound cultures from 01/13 show Pseudomonas BLLE - repeat wound cultures completed in ER. - per daughter + green drainage this past weekend and then confusion started. Code(s): L03.90 - CELLULITIS, UNSPECIFIED (5) Confusion Current Visit: Yes Status: Acute Assessment & Plan: - CXR and CT head reviewed. - CBC and CMP reviewed. - Daughter reports pt has increased confusion with infections 01/18 - continued confusion Code(s): R41.0 - DISORIENTATION, UNSPECIFIED (6) Hallucination Current Visit: Yes Status: Acute Assessment & Plan: - CT head negative for acute concern - Monitor 01/18 - denies hallucinations Code(s): R44.3 - HALLUCINATIONS, UNSPECIFIED (7) Thrombocytopenia Current Visit: Yes Status: Acute Assessment & Plan: - Platelets 127- trend - Daughter does not want further workup for this or referral OP to oncology/heamtology. 01/18 - Plt 113- trend (8) Diabetes type 2, controlled Current Visit: No Status: Chronic Qualifiers: Assessment & Plan: - 11/30/23 A1C 7.64 - Controlled - Continue accuchecks ac/hs, humalog and lantus dosing - Carb consistent diet Code(s): E11.9 - TYPE 2 DIABETES MELLITUS WITHOUT COMPLICATIONS (9) Hypothyroidism Current Visit: Yes Status: Chronic Assessment & Plan: - Continue synthroid - 11/30/23 TSH 3.9- WNL Code(s): E03.9 - HYPOTHYROIDISM, UNSPECIFIED (10) Weakness Current Visit: Yes Status: Acute Assessment & Plan: - Per daughter, pt was up and walking with a cane in October - Lives in ECF - PT/OT eval and treat Code(s): R53.1 - WEAKNESS (11) BPH (benign prostatic hyperplasia) Current Visit: Yes Status: Chronic Assessment & Plan: - Continue Flomax Code(s): N40.0 - BENIGN PROSTATIC HYPERPLASIA WITHOUT LOWER URINRY TRACT SYMP Code(s): N40.0 - BENIGN PROSTATIC HYPERPLASIA WITHOUT LOWER URINRY TRACT SYMP (12) Metabolic acidosis Current Visit: Yes Status: Acute Assessment & Plan: - CO2 16 - started oral sodium bicarb VTE: Xarelto PPI: Protonix Next of KIN: daughter D/C plan: 2-3 days Code status: SCO/DNR Code(s): E87.20 - ACIDOSIS, UNSPECIFIED
[2024-01-19] MEDS: Piperacillin/Tazobactam 2.25 GM 2.25 GM in Sodium Chloride 100ML MINI-BAG PLUS 100 ML IV SCH (12:30)
--- NOTE | 2024-01-19 13:30 | XRAY ---
Indication: Left foot wound. Comparison: July 20, 2014 2 nonweightbearing portable views left foot now demonstrates marked osteopenia and progressive worsening extensive scattered vascular calcifications. Stable small plantar heel spur. No other bony, articular, or soft tissue abnormalities.
[2024-01-19] MEDS: SODIUM BICARBONATE PO SCH (14:13)
[2024-01-19] MEDS: SYNTHROID 25 MCG PO SCH (14:14)
[2024-01-19] MEDS: ECOTRIN 81 MG PO SCH (14:14)
[2024-01-19] MEDS: Protonix 20MG Tablet PO SCH (14:14)
[2024-01-19] MEDS: Zaroxolyn 2.5 MG PO SCH (14:16)
--- NOTE | 2024-01-19 15:37 | PCM.CONS ---
Podiatry HPI - Consult Date of Consultation Date: 01/19/24 Reason for Consult: Bilateral lower extremity cellulitis. Diabetic foot ulcer left foot Consulting Provider: KALLIE HAYES DPM - [facility] History of Present Illness: Mr. 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 Patient recently has returned to the hospital with extreme confusion and lethargy secondary to suspected infection. Patient's wounds to the bilateral lower extremity demonstrate some purulent drainage. Patient was seen in the emergency department and admitted yesterday January 18, 2024. Cultures were taken at that time of the leg ulcers. Patient has had an ulceration that has been treated by wound care nurses at the [facility] to the left hallux for the last 2 months. Debridement has been performed and orders have been placed by them however his daughter Simona as shown my staff pictures which demonstrated a possible capsule and bone at the dorsal medial aspect of the distal interphalangeal joint of the hallux. At this time patient subjective examination is limited secondary to mental status however most subjective history is obtained from his daughter Roselia who is his power of traffic law attorney. He currently denies any constitutional symptoms of infection however is clearly lethargic and with some altered mentation. He denies any other pedal complaints at this time Medications & Allergies Home Medications: Home Medication List Citalopram Hydrobromide [Celexa] 20 mg PO DAILY 02/22/19 [History Confirmed 01/18/24] Ferrous Sulfate [Iron] 325 mg PO TID 02/22/19 [History Confirmed 01/18/24] Insulin Aspart [Novolog] 0 unit SQ TIDWMEALS 02/22/19 [History Confirmed 01/18/24] Insulin Glargine [Lantus Insulin] 18 unit SQ 1800 02/22/19 [History Confirmed 01/18/24] Rivaroxaban [Xarelto] 2.5 mg PO BID 10/17/21 [History Confirmed 01/18/24] Lactobacillus Acidophilus [Acidophilus TABLET] 1 tab PO BID 09/30/22 [History Confirmed 01/18/24] Levothyroxine Sodium [Synthroid] 25 mcg PO DAILY 09/30/22 [History Confirmed 01/18/24] Potassium Chloride 30 meq PO TID 09/30/22 [History Confirmed 01/18/24] Aspirin EC 81 mg [Ecotrin 81 mg] 81 mg PO DAILY 12/09/22 [History Confirmed 01/18/24] Tamsulosin HCl 0.4 mg [Flomax 0.4 MG] 0.4 mg PO HS 12/09/22 [History Confirmed 01/18/24] Ergocalciferol (Vitamin D2) [Drisdol] 50,000 mcg PO WEEKLY 07/15/23 [History Confirmed 01/18/24] Furosemide 20 mg [Lasix 20 mg] 60 mg PO BID 01/18/24 [History Confirmed 01/18/24] Furosemide 40 mg [Lasix 40 MG] 60 mg PO BID 01/18/24 [History Confirmed 01/18/24] Insulin Lispro [Humalog] 6 unit SQ TIDWMEALS 01/18/24 [History Confirmed 01/18/24] Latanoprost [Xalatan] 1 drop DROPS HS 01/18/24 [History Confirmed 01/18/24] metOLazone [Metolazone] 5 mg PO UD 01/18/24 [History Confirmed 01/18/24] Allergies/Adverse Reactions: Allergies Allergy/AdvReac Type Severity Reaction Status Date / Time sulfamethoxazole Allergy Intermediate Swelling Verified 01/18/24 11:43 [From Bactrim] trimethoprim [From Bactrim] Allergy Intermediate Swelling Verified 01/18/24 11:43 Sulfa (Sulfonamide AdvReac Intermediate Swelling Verified 01/18/24 11:43 Antibiotics) quetiapine [From Seroquel] AdvReac RESPIRATORY Verified 01/18/24 19:17 DEPRESSION - Past Medical History Past Medical History: Yes Neurological History: Stroke ENT History: No Pertinent History Cardiac History: Congestive Heart Failure, High Cholesterol, Hypertension, Myocardial Infarction (SC) Respiratory History: No Pertinent History Endocrine Medical History: Diabetes Type II Musculoskelatal History: Arthritis GI Medical History: No Pertinent History History: Renal Disease Pyscho-Social History: No Pertinent History Male Reproductive Disorders: No Pertinent History Comment: 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%", fall injuring jrodon hands - Past Surgical History Past Surgical History: Yes Neuro Surgical History: No Pertinent History Cardiac History: Cardiac Catheterization, Other Respiratory Surgery: No Pertinent History GI Surgical History: No Pertinent History Genitourinary Surgical Hx: No Pertinent History Musculskeletal Surgical Hx: No Pertinent History, Orthopedic Surgery Male Surgical History: No Pertinent History Other Surgical History: Callus removed from ball of right foot; 2ND DIGIT RIGHT FOOT REMOVED, transmetatarsal right amputation, BLE stents - Social History Smoking Status: Never smoker Exposure to second hand smoke: No Alcohol: None Drug Use: none - Social Determinants of Health Will the patient participate in the screening: Declined to provide Physical Exam - Vascular Peripheral Pulses: Posterior tibialis: 0, Dorsalis-Pedis: 1+ Capillary Refill Time: < 3 seconds Hair Growth: Symmetrical and Bilateral Varicosities: Positive Edema: Pitting Edema Degree: 2+ Skin: Mild edema Skin Temperature: Warm to touch - Muscular Foot Type: TMA right - Narrative Narrative Physical Exam: Podiatry Physical Exam Wound Debridement ----Right 1.) Rt Proximal lateral leg Pre - 3.6x0.6 Post - 3.8x0.9 Fibrotic purulent 2.) Rt mid lateral pre - 0.8 x0.7 post - Desquamated not debrided 3.) lateral distal pre - 1.8x1.5 post - 2.0x1.7 endurate/entirely fibrotic -----Left 1.) Medial Great toe pre - 1.6 x 1.4 post - 1.6x1.4 Stable eschar with positive probe to bone Debridement to level of bone 2.) Lateral Mid diaphyseal pre - 1.6x0.5 post - Desquamated not debrided 3.) Posterolateral mid diaphyseal pre - 7.9x2.3 post - Desquamated not debrided 4.) Medial distal pre - 3.0x0.6 post - 3.1x0.7 Results - Labs Lab/Micro Results: Lab Results-Last 24 Hours 01/18/24 01/18/24 01/18/24 Range/Units 12:25 12:25 12:25 WBC (4.23-9.07) x10^3/uL RBC (4.63-6.08) x10^6/uL Hgb (13.7-17.5) g/dL Hct (40.1-51.0) % MCV (79.0-92.2) fL MCH (25.7-32.2) pg MCHC (32.3-36.5) g/dL RDW (11.6-14.4) % Plt Count (163-337) x10^3/uL MPV (9.4-12.4) fL Sodium (135-145) mmol/L Potassium (3.5-5.1) mmol/L Chloride (98-107) mmol/L Carbon Dioxide (22-30) mmol/L Anion Gap (5-15) MEQ/L BUN (9-20) mg/dL Creatinine (0.66-1.25) mg/dL Estimated GFR ML/MIN Glucose (74-106) mg/dL POC Glucometer (74 to 106) mg/dL Calcium (8.4-10.2) mg/dL Total Bilirubin (0.2-1.3) mg/dL AST (17-59) U/L ALT (0-50) U/L Alkaline Phosphatase (38-126) U/L Troponin I 0.023 (0.000-0.033) ng/mL NT-Pro-B Natriuret Pep 40391 (<300) pg/mL Serum Total Protein (6.3-8.2) g/dL Albumin (3.5-5.0) g/dL Prealbumin (17.6-36.0) mg/dL Slides for Path Review YES 01/18/24 01/18/24 01/18/24 Range/Units 12:25 17:19 21:22 WBC (4.23-9.07) x10^3/uL RBC (4.63-6.08) x10^6/uL Hgb (13.7-17.5) g/dL Hct (40.1-51.0) % MCV (79.0-92.2) fL MCH (25.7-32.2) pg MCHC (32.3-36.5) g/dL RDW (11.6-14.4) % Plt Count (163-337) x10^3/uL MPV (9.4-12.4) fL Sodium (135-145) mmol/L Potassium (3.5-5.1) mmol/L Chloride (98-107) mmol/L Carbon Dioxide (22-30) mmol/L Anion Gap (5-15) MEQ/L BUN (9-20) mg/dL Creatinine (0.66-1.25) mg/dL Estimated GFR ML/MIN Glucose (74-106) mg/dL POC Glucometer 133 H 131 H (74 to 106) mg/dL Calcium (8.4-10.2) mg/dL Total Bilirubin (0.2-1.3) mg/dL AST (17-59) U/L ALT (0-50) U/L Alkaline Phosphatase (38-126) U/L Troponin I (0.000-0.033) ng/mL NT-Pro-B Natriuret Pep (<300) pg/mL Serum Total Protein (6.3-8.2) g/dL Albumin (3.5-5.0) g/dL Prealbumin 10.09 L (17.6-36.0) mg/dL Slides for Path Review 01/18/24 01/19/24 01/19/24 Range/Units 21:55 01:22 01:22 WBC 3.7 L (4.23-9.07) x10^3/uL RBC 3.52 L (4.63-6.08) x10^6/uL Hgb 9.6 L (13.7-17.5) g/dL Hct 31.7 L (40.1-51.0) % MCV 90.1 (79.0-92.2) fL MCH 27.3 (25.7-32.2) pg MCHC 30.3 L (32.3-36.5) g/dL RDW 18.0 H (11.6-14.4) % Plt Count 113 L (163-337) x10^3/uL MPV 10.1 (9.4-12.4) fL Sodium (135-145) mmol/L Potassium (3.5-5.1) mmol/L Chloride (98-107) mmol/L Carbon Dioxide (22-30) mmol/L Anion Gap (5-15) MEQ/L BUN (9-20) mg/dL Creatinine (0.66-1.25) mg/dL Estimated GFR ML/MIN Glucose (74-106) mg/dL POC Glucometer (74 to 106) mg/dL Calcium (8.4-10.2) mg/dL Total Bilirubin (0.2-1.3) mg/dL AST (17-59) U/L ALT (0-50) U/L Alkaline Phosphatase (38-126) U/L Troponin I 0.018 0.017 (0.000-0.033) ng/mL NT-Pro-B Natriuret Pep (<300) pg/mL Serum Total Protein (6.3-8.2) g/dL Albumin (3.5-5.0) g/dL Prealbumin (17.6-36.0) mg/dL Slides for Path Review 01/19/24 01/19/24 01/19/24 Range/Units 01:22 07:45 11:30 WBC (4.23-9.07) x10^3/uL RBC (4.63-6.08) x10^6/uL Hgb (13.7-17.5) g/dL Hct (40.1-51.0) % MCV (79.0-92.2) fL MCH (25.7-32.2) pg MCHC (32.3-36.5) g/dL RDW (11.6-14.4) % Plt Count (163-337) x10^3/uL MPV (9.4-12.4) fL Sodium 135 (135-145) mmol/L Potassium 5.0 (3.5-5.1) mmol/L Chloride 104 (98-107) mmol/L Carbon Dioxide 16 L* (22-30) mmol/L Anion Gap 20.5 H (5-15) MEQ/L BUN 40 H (9-20) mg/dL Creatinine 1.85 H (0.66-1.25) mg/dL Estimated GFR 34.8 ML/MIN Glucose 210 H (74-106) mg/dL POC Glucometer 175 H 197 H (74 to 106) mg/dL Calcium 8.8 (8.4-10.2) mg/dL Total Bilirubin 0.90 (0.2-1.3) mg/dL AST 26 (17-59) U/L ALT 20 (0-50) U/L Alkaline Phosphatase 84 (38-126) U/L Troponin I (0.000-0.033) ng/mL NT-Pro-B Natriuret Pep (<300) pg/mL Serum Total Protein 6.3 (6.3-8.2) g/dL Albumin 3.2 L (3.5-5.0) g/dL Prealbumin (17.6-36.0) mg/dL Slides for Path Review Accuchecks Date 01/19/24 Date 01/19/24 Date 01/18/24 Time 17:21 - Radiology Impressions Radiology Exams & Impressions: Radiology Procedures Category Date Time Status CHEST 1 VIEW (PORTABLE) Stat Exams 01/18/24 14:33 Completed FOOT (2 VIEWS) Routine Exams 01/19/24 12:52 Completed HEAD WITHOUT CONTRAST [CT] Stat Exams 01/18/24 10:58 Completed LOWER LEG Routine Exams 01/18/24 18:46 Completed LOWER LEG Routine Exams 01/18/24 18:58 Completed MRI LOWER EXT W/O CONTRAST [MRI] Stat Exams 01/19/24 15:19 Ordered Assessment/Plan (1) Venous insufficiency of both lower extremities Current Visit: Yes Status: Acute Assessment & Plan: unna boot to right following wound debridments as decribed in narrative portion of examination will await MRI to apply to the left Code(s): I87.2 - VENOUS INSUFFICIENCY (CHRONIC) (PERIPHERAL) (2) Acute on chronic renal failure Current Visit: No Status: Acute Qualifiers: Acute renal failure type: unspecified Chronic kidney disease stage: stage 3 (moderate) Code(s): N17.9 - ACUTE KIDNEY FAILURE, UNSPECIFIED; N18.9 - CHRONIC KIDNEY DISEASE, UNSPECIFIED (3) CHF (congestive heart failure) Current Visit: No Status: Acute Code(s): I50.9 - HEART FAILURE, UNSPECIFIED (4) Osteomyelitis Current Visit: No Status: Acute Qualifiers: Osteomyelitis type: subacute Osteomyelitis location: foot Laterality: right Qualified Code(s): M86.271 - Subacute osteomyelitis, right ankle and foot Assessment & Plan: there is a wound to the left hallux with positive probe to bone Review of Xray demonstrating cortical destruction of medial aspect of the distal interphalangeal joint consistent with OM Will obtain MRI to determine chronicity discussion was held in regards to options for treatment for at this time his power of traffic law attorney/daughter the will be the decision maker. Once MRI is obtained we will call and we will decide. Will plan for patient to be n.p.o. 8 hours prior to anticipated procedure time. Informed consent to read open amputation great toe possible first metatarsal partial amputation left foot. Possible packing with antibiotic beads. Code(s): M86.9 - OSTEOMYELITIS, UNSPECIFIED (5) Uncontrolled type II diabetes mellitus Current Visit: No Status: Chronic Code(s): [id number] - (6) Wound of left foot Current Visit: No Status: Chronic Assessment & Plan: debrided as described in procedure section of note. positive probe to bone Xray correlates OM MRI to assess further Code(s): S91.302A - UNSPECIFIED OPEN WOUND, LEFT FOOT, INITIAL ENCOUNTER (7) Open wound of both legs with complication Current Visit: Yes Status: Acute Code(s): S81.801A - UNSPECIFIED OPEN WOUND, RIGHT LOWER LEG, INITIAL ENCOUNTER; S81.802A - UNSPECIFIED OPEN WOUND, LEFT LOWER LEG, INITIAL ENCOUNTER (8) CHF (congestive heart failure) Current Visit: Yes Status: Acute Qualifiers: Heart failure chronicity: acute Code(s): I50.9 - HEART FAILURE, UNSPECIFIED
[2024-01-19] MEDS: Lasix 40 MG PO SCH (18:58)
[2024-01-19] MEDS: Lantus Insulin SQ SCH (18:59)
[2024-01-19] MEDS: Xalatan OP SCH (23:42)
[2024-01-20 05:31] LABS: Hematocrit 30.6 % (40.1-51.0); Hemoglobin 9.6 g/dL (13.7-17.5); Mean Cell Volume 87.7 fL (79.0-92.2); Mean Corpuscular Hemoglobin 27.5 pg (25.7-32.2); Mean Corpuscular Hgb Concent. 31.4 g/dL (32.3-36.5); Mean Platelet Volume 9.7 fL (9.4-12.4); Platelet Count 111 x10^3/uL (163-337); Red Blood Count 3.49 x10^6/uL (4.63-6.08); Red Cell Distribution Width 17.9 % (11.6-14.4); White Blood Count 2.4 x10^3/uL (4.23-9.07)
[2024-01-20 05:57] LABS: ALBUMIN 2.8 g/dL (3.5-5.0); ANION GAP 12.1 MEQ/L (5-15); BILIRUBIN,TOTAL 0.7 mg/dL (0.2-1.3); Calcium 8.8 mg/dL (8.4-10.2); Creatinine 1 2.09 mg/dL (0.66-1.25); EST GLOMERULAR FILTRATION RATE 30.1 ML/MIN
--- NOTE | 2024-01-20 12:02 | XRAY ---
Indication: Ulcer great toe. Osteomyelitis. Sagittal, coronal, and axial MRI left forefoot performed without contrast using T1, T2, and STIR sequences. Comparison: None Several images/sequences degraded by motion. Visualized left foot articulation appears anatomic. Mild diffuse plantar subcutaneous soft tissue swelling/edema. No focal solid/cystic soft tissue mass or abnormal fluid collection. Distal 1st phalanx and less degree proximal 1st phalanx demonstrates diffuse bone edema signal, probable osteomyelitis based on clinical history. Lack of IV contrast precludes further characterization. Elsewhere no acute fracture, suspicious bony lesions, or abnormal bone marrow signal. Impression: 1. Motion artifact. 2. Plantar subcutaneous soft tissue swelling/edema other presumed inflammatory/infectious. 3. Diffuse bone edema signal distal and lesser degree proximal 1st phalanges, probable osteomyelitis based on clinical history.
--- NOTE | 2024-01-20 12:37 | PCM.NOTE ---
Date and Time: 01/20/24 1232 Subjective Assessment: 01/18/24 is a 88 year old male with PMHX of CVA 2006, CHF, hyperlipidemia, HTN, SC, Type II DM, OA, CKD, and CAD. Pt presents to emergency department via EMS from the [facility] ([place]) for evaluation of abnormal labs, possible lower extremity infection confusion and hallucination. Patient states he sees little girls floating but he knows they are not real. Patient is cognizant and aware of the hallucinations. Daughter states he developed green drainage from BLLE Wednesday. He then became confused the next day. She reports he often has confusion with extreme infections. Wound cultures done Wednesday at [facility] show pseudomas for BLLE. He had not been on any antibiotics until today. Repeat wound cultures completed in ER. BC x2 pending. Pt started on IV antibiotics and changed to broad spectrum antibiotics IP. Podiatry consulted and XR's of BLLE ordered. IV lasix gave in ER for CHF exacerbation as seen on CXR. Per pt's daughter pt had an angiogram on and needs further surgery of LLE for better blood flow. This is to be done per Senior [employer] Developer Dr. Perez. Pt follows Dr. Huggins for nephrology. Daughter would also like pt to work with PT/OT a while here as pt was up and walking with a cane in October. Pt is pleasantly confused and denies any further concerns at this time. 01/19/24 Pt resting in bed. He is still very confused but denies hallucinations. He is able to tell me he is at [facility]. He is pending podiatry eval of BLLE. Awaiting cultures of wounds and BC x2 from ER yesterday. Continue broad spectrum antibiotics. XR's of BLLE do not show osteomyelitis. Co2 16 and oral sodium bicarb started. He denies any further concerns at this time. 01/20/24 Pt resting in bed. He is awake, alert, and oriented x3 today. Podiatry evaluated pt yesterday and recommended XR Left foot and MRI. MRI was attempted last night but pt was unable to hold still. MRI to be re-attempted today. Per podiatry pt will possibly need toe amputation. This may be as soon as today. Wound cultures x2 of BLLE gram negative and sensitivity pending. Continue IV antibiotics. He denies CP, SOB, abd. pain, N/V/D. He admits to continued weakness. - Review of Systems Constitutional: Weakness, No Fever, No Chills Eyes: No Symptoms Ears, Nose, & Throat: No Symptoms Respiratory: No Cough, No Short Of Breath Cardiac: No Chest Pain, No Edema, No Syncope Abdominal/Gastrointestinal: No Abdominal Pain, No Nausea, No Vomiting, No Diarrhea Genitourinary Symptoms: No Dysuria Musculoskeletal: No Back Pain, No Neck Pain Skin: Skin Lesions (BLLE and left foot), No Rash Neurological: No Dizziness, No Focal Weakness, No Sensory Changes Psychological: No Symptoms Endocrine: No Symptoms Hematologic/Lymphatic: No Symptoms Immunological/Allergic: No Symptoms Objective Exam General Appearance: no apparent distress, alert Neurologic Exam: alert, oriented x 3, cooperative, normal mood/affect, nml cerebellar function, sensation nml, motor weakness, No motor deficits Skin Exam: normal color, warm, dry, other (BLLE erythema and LLE wound of foot) Wound Assessment: Skin/Wound Assessment Wound/Incision Assessment Start: 01/18/24 18:05 Text: Status: Active Freq: Q6H Protocol: Document 01/20/24 10:00 AR (Rec: 01/20/24 11:04 AR [id number]) Wound/Incision Assessment Left Lower Calf Wound Assessment Shift Assessment Wound Type Stasis Ulcer Comment dressing cdi Right Lower Calf Wound Assessment Shift Assessment Wound Type Stasis Ulcer Comment dressing cdi Left Great Toe Wound Assessment Shift Assessment Wound Type Stasis Ulcer Length (cm) (cm) 1.6 Width (cm) (cm) 1.4 Comment dressing cdi Wound Photo Photo Taken No Eye Exam: PERRL, EOMI, eyes nml inspection Ears, Nose, Throat Exam: normal ENT inspection, pharynx normal, moist mucous membranes Neck Exam: normal inspection, non-tender, supple, full range of motion Respiratory Exam: normal breath sounds, lungs clear, No respiratory distress Cardiovascular Exam: regular rate/rhythm, normal heart sounds Gastrointestinal/Abdomen Exam: soft, No tenderness, No mass Extremity Exam: normal inspection, normal range of motion Back Exam: normal inspection, normal range of motion, No CVA tenderness, No vertebral tenderness Male Genitalia Exam: deferred Rectal Exam: deferred Objective Data Vital Signs: Vital Signs - 24 hr Temp Pulse Resp BP Pulse Ox 01/20/24 08:00 79 16 134/65 95 01/20/24 04:00 97.3 F 80 20 128/66 97 01/20/24 00:00 97.9 F 74 18 131/75 97 01/19/24 20:00 97.8 F 76 17 134/76 97 01/19/24 19:00 81 01/19/24 16:00 80 16 134/74 95 Pain Assessment - Last Documented Pain Intensity 2 Intake and Output: Intake & Output 01/18/24 01/19/24 01/20/24 01/21/24 11:59 11:59 11:59 11:59 Intake Total 700 2005 Output Total 300 1225 Balance 400 781 Weight 87.9 kg 87 kg Lab Results: Lab Results-Last 24 Hours 01/19/24 01/19/24 01/20/24 Range/Units 16:34 22:24 05:23 WBC 2.4 L (4.23-9.07) x10^3/uL RBC 3.49 L (4.63-6.08) x10^6/uL Hgb 9.6 L (13.7-17.5) g/dL Hct 30.6 L (40.1-51.0) % MCV 87.7 (79.0-92.2) fL MCH 27.5 (25.7-32.2) pg MCHC 31.4 L (32.3-36.5) g/dL RDW 17.9 H (11.6-14.4) % Plt Count 111 L (163-337) x10^3/uL MPV 9.7 (9.4-12.4) fL Sodium (135-145) mmol/L Potassium (3.5-5.1) mmol/L Chloride (98-107) mmol/L Carbon Dioxide (22-30) mmol/L Anion Gap (5-15) MEQ/L BUN (9-20) mg/dL Creatinine (0.66-1.25) mg/dL Estimated GFR ML/MIN Glucose (74-106) mg/dL POC Glucometer 230 H 243 H (74 to 106) mg/dL Calcium (8.4-10.2) mg/dL Total Bilirubin (0.2-1.3) mg/dL AST (17-59) U/L ALT (0-50) U/L Alkaline Phosphatase (38-126) U/L Serum Total Protein (6.3-8.2) g/dL Albumin (3.5-5.0) g/dL 01/20/24 01/20/24 01/20/24 Range/Units 05:23 07:47 12:00 WBC (4.23-9.07) x10^3/uL RBC (4.63-6.08) x10^6/uL Hgb (13.7-17.5) g/dL Hct (40.1-51.0) % MCV (79.0-92.2) fL MCH (25.7-32.2) pg MCHC (32.3-36.5) g/dL RDW (11.6-14.4) % Plt Count (163-337) x10^3/uL MPV (9.4-12.4) fL Sodium 137 (135-145) mmol/L Potassium 4.0 (3.5-5.1) mmol/L Chloride 103 (98-107) mmol/L Carbon Dioxide 26 (22-30) mmol/L Anion Gap 12.1 (5-15) MEQ/L BUN 40 H (9-20) mg/dL Creatinine 2.09 H (0.66-1.25) mg/dL Estimated GFR 30.1 ML/MIN Glucose 248 H (74-106) mg/dL POC Glucometer 219 H 201 H (74 to 106) mg/dL Calcium 8.8 (8.4-10.2) mg/dL Total Bilirubin 0.70 (0.2-1.3) mg/dL AST 21 (17-59) U/L ALT 17 (0-50) U/L Alkaline Phosphatase 70 (38-126) U/L Serum Total Protein 6.0 L (6.3-8.2) g/dL Albumin 2.8 L (3.5-5.0) g/dL Radiology Exams: Radiology Procedures Category Date Time Status CHEST 1 VIEW (PORTABLE) Stat Exams 01/18/24 14:33 Completed FOOT (2 VIEWS) Routine Exams 01/19/24 12:52 Completed LOWER LEG Routine Exams 01/18/24 18:46 Completed LOWER LEG Routine Exams 01/18/24 18:58 Completed MRI LOWER EXT W/O CONTRAST [MRI] Routine Exams 01/20/24 11:00 Completed Multi-Disciplinary Progress Notes: Multi-Disciplinary Progress Notes 01/20/24 10:31 Case Management Note by Bettie Che NO CHANGE IN DC PLANS AT THIS TIME Initialized on 01/20/24 10:31 - END OF NOTE 01/19/24 15:41 Occupational Therapy Note by Kim (L#[id number]),Lyndsay OT WILL HOLD EVALUATION AT THIS TIME PATIENT HAS BEEN LETHARGIC AND UNDERGOING MORE TESTING ON LOWER EXTREMITY. PATIENT LIKELY NOT APPROPRIATE FOR OCCUPATIONAL THERAPY DUE TO BASELINE LEVEL OF ASSIST WITH ADLS. Initialized on 01/19/24 15:41 - END OF NOTE Assessment/Plan (1) CHF (congestive heart failure) Current Visit: Yes Status: Acute Qualifiers: Heart failure chronicity: acute Code(s): I50.9 - HEART FAILURE, UNSPECIFIED (2) Acute on chronic renal failure Current Visit: Yes Status: Acute Code(s): N17.9 - ACUTE KIDNEY FAILURE, UNSPECIFIED; N18.9 - CHRONIC KIDNEY DISEASE, UNSPECIFIED (3) Open wound of both legs with complication Current Visit: Yes Status: Acute Code(s): S81.801A - UNSPECIFIED OPEN WOUND, RIGHT LOWER LEG, INITIAL ENCOUNTER; S81.802A - UNSPECIFIED OPEN WOUND, LEFT LOWER LEG, INITIAL ENCOUNTER (4) Cellulitis Current Visit: Yes Status: Acute Qualifiers: Site of cellulitis: extremity Site of cellulitis of extremity: lower extremity Code(s): L03.90 - CELLULITIS, UNSPECIFIED (5) Confusion Current Visit: Yes Status: Acute Code(s): R41.0 - DISORIENTATION, UNSPECIFIED (6) Hallucination Current Visit: Yes Status: Acute Code(s): R44.3 - HALLUCINATIONS, UN SPECIFIED (7) Thrombocytopenia Current Visit: Yes Status: Acute (8) Diabetes type 2, controlled Current Visit: No Status: Chronic Qualifiers: Code(s): E11.9 - TYPE 2 DIABETES MELLITUS WITHOUT COMPLICATIONS (9) Hypothyroidism Current Visit: Yes Status: Chronic Code(s): E03.9 - HYPOTHYROIDISM, UNSPECIFIED (10) Weakness Current Visit: Yes Status: Acute Code(s): R53.1 - WEAKNESS (11) BPH (benign prostatic hyperplasia) Current Visit: Yes Status: Chronic Code(s): N40.0 - BENIGN PROSTATIC HYPERPLASIA WITHOUT LOWER URINRY TRACT SYMP (12) Metabolic acidosis Current Visit: Yes Status: Acute Assessment & Plan: (1) CHF (congestive heart failure) Current Visit: Yes Status: Acute Qualifiers: Heart failure chronicity: acute Assessment & Plan: - CXR reviewed - Lasix IV gave in ER - I&O's - Trop negative- trend - tele - BNP 92179 - CXR shows pulm edema - Echo 07/19/23- EF 15-20% IMPRESSION: 1. SEVERE LEFT VENTRICULAR SYSTOLIC DYSFUNCTION. 2. SEVERE ASSYMMETRIC LEFT VENTRICULAR HYPERTROPHY INVOLVING THE INTERVENTRICULAR SEPTUM. 3. BORDERLINE LEFT ATRIAL DILATATION. 4. MILD TRICUSPID REGURGITATION. 5. MILD MITRAL REGURGITATION. 6. NORMAL RIGHT VENTRICULAR SYSTOLIC PRESSURE. 01/18 -CMP reviewed - Continue Lasix 60mg PO BID- home dose 01/18 - Lungs clear - RA 95% - improved - consider repeat CXR Code(s): I50.9 - HEART FAILURE, UNSPECIFIED (2) Acute on chronic renal failure Current Visit: Yes Status: Acute Assessment & Plan: - Creat 1.91, baseline 1.75- trend - Anion gap 17.2 - Encouraged oral intake d/t fluid restrictions at hospital. 01/18 - Creat 1.85- near baseline - CMP reviewed - Continue Lasix 60mg PO BID- home dose 01/19 - Creat 2.09- trend Code(s): N17.9 - ACUTE KIDNEY FAILURE, UNSPECIFIED; N18.9 - CHRONIC KIDNEY DISEASE, UNSPECIFIED (3) Open wound of both legs with complication Current Visit: Yes Status: Acute Assessment & Plan: - IV antibiotics Linezoid and Zosyn - podiatry consult - Wound cultures from 01/13 show Pseudomonas BLLE - repeat wound cultures completed in ER. - BC x2 - per daughter + green drainage this past weekend and then confusion started. - XR BLLE reviewed- negative for osteomyelitis - CBC reviewed daily 01/19 - XR and MRI of left foot ordered- possible amputation today with podiatry - reviewed podiatry note and agree with plan of care. - more wound cultures completed by podiatry of left foot Code(s): S81.801A - UNSPECIFIED OPEN WOUND, RIGHT LOWER LEG, INITIAL ENCOUNTER; S81.802A - UNSPECIFIED OPEN WOUND, LEFT LOWER LEG, INITIAL ENCOUNTER (4) Cellulitis Current Visit: Yes Status: Acute Qualifiers: Site of cellulitis: extremity Site of cellulitis of extremity: lower extremity Assessment & Plan: - BLLE - Doxycycline IV started in ER, - IV antibiotics Linezoid and Zosyn started IIP - podiatry consult - Wound cultures from 01/13 show Pseudomonas BLLE - repeat wound cultures completed in ER. - per daughter + green drainage this past weekend and then confusion started. 01/19 - Wound cultures x2 gram negative- sensitivity pending - Continue IV antibiotics Code(s): L03.90 - CELLULITIS, UNSPECIFIED (5) Confusion Current Visit: Yes Status: Acute Assessment & Plan: - CXR and CT head reviewed. - CBC and CMP reviewed. - Daughter reports pt has increased confusion with infections 01/18 - continued confusion 01/19 - resolved Code(s): R41.0 - DISORIENTATION, UNSPECIFIED (6) Hallucination Current Visit: Yes Status: Acute Assessment & Plan: - CT head negative for acute concern - Monitor 01/18 - denies hallucinations 01/19 - resolved Code(s): R44.3 - HALLUCINATIONS, UNSPECIFIED (7) Thrombocytopenia Current Visit: Yes Status: Acute Assessment & Plan: - Platelets 127- trend - Daughter does not want further workup for this or referral OP to oncology/heamtology. 01/18 - Plt 113- trend 01/19 - PLT 111- trend (8) Diabetes type 2, controlled Current Visit: No Status: Chronic Qualifiers: Assessment & Plan: - 11/30/23 A1C 7.64 - Controlled - Continue accuchecks ac/hs, humalog and lantus dosing - Carb consistent diet Code(s): E11.9 - TYPE 2 DIABETES MELLITUS WITHOUT COMPLICATIONS (9) Hypothyroidism Current Visit: Yes Status: Chronic Assessment & Plan: - Continue synthroid - 11/30/23 TSH 3.9- WNL Code(s): E03.9 - HYPOTHYROIDISM, UNSPECIFIED (10) Weakness Current Visit: Yes Status: Acute Assessment & Plan: - Per daughter, pt was up and walking with a cane in October - Lives in ECF - PT/OT eval and treat 01/19 - Continued weakness Code(s): R53.1 - WEAKNESS (11) BPH (benign prostatic hyperplasia) Current Visit: Yes Status: Chronic Assessment & Plan: - Continue Flomax Code(s): N40.0 - BENIGN PROSTATIC HYPERPLASIA WITHOUT LOWER URINRY TRACT SYMP Code(s): N40.0 - BENIGN PROSTATIC HYPERPLASIA WITHOUT LOWER URINRY TRACT SYMP (12) Metabolic acidosis Current Visit: Yes Status: Acute Assessment & Plan: - CO2 16 - started oral sodium bicarb 10/24 - oral sodium bicarb stopped - Co2 26 VTE: Xarelto PPI: Protonix Next of KIN: daughter D/C plan: 2-3 days Code status: SCO/DNR Code(s): E87.20 - ACIDOSIS, UNSPECIFIED Code(s): E87.20 - ACIDOSIS, UNSPECIFIED
[2024-01-20] MEDS ORDERED: VANCOCIN INJECTION IV ONE (13:27)
[2024-01-20] MEDS ORDERED: Xylocaine 1% Vial 30 ML PF IJ ONE (13:27)
[2024-01-20] MEDS ORDERED: Tobramycin 1.2 GM Injection IJ ONE (13:42)
--- NOTE | 2024-01-20 15:21 | XRAY ---
Indication: Left 1st toe amputation. Intraoperative fluoroscopy provided for 2 seconds. 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 Correlate with intraoperative findings/report.
[2024-01-20] MEDS: Lactated Ringers 1,000 ML IV SCH (16:12)
--- NOTE | 2024-01-20 22:23 | XRAY ---
2 seconds of fluoroscopy was used in surgery for a left 1st toe amputation.
[2024-01-21 05:02] LABS: Hematocrit 30.7 % (40.1-51.0); Hemoglobin 9.8 g/dL (13.7-17.5); Mean Cell Volume 86.7 fL (79.0-92.2); Mean Corpuscular Hemoglobin 27.7 pg (25.7-32.2); Mean Corpuscular Hgb Concent. 31.9 g/dL (32.3-36.5); Platelet Count 129 x10^3/uL (163-337); Red Blood Count 3.54 x10^6/uL (4.63-6.08); Red Cell Distribution Width 17.9 % (11.6-14.4); White Blood Count 3.2 x10^3/uL (4.23-9.07)
[2024-01-21 05:18] LABS: ALBUMIN 2.8 g/dL (3.5-5.0); ANION GAP 11.1 MEQ/L (5-15); BILIRUBIN,TOTAL 0.6 mg/dL (0.2-1.3); Calcium 8.8 mg/dL (8.4-10.2); Creatinine 1 2.11 mg/dL (0.66-1.25); EST GLOMERULAR FILTRATION RATE 29.7 ML/MIN; Potassium 3.4 mmol/L (3.5-5.1); Total Protein 5.9 g/dL (6.3-8.2)
[2024-01-21] MEDS: Klor Con PO ONE (06:39)
[2024-01-21 12:31] LABS: MAGNESIUM 1.8 mg/dL (1.6-2.3); Potassium 4.8 mmol/L (3.5-5.1)
--- NOTE | 2024-01-21 14:04 | PCM.NOTE ---
Date and Time: 01/21/24 1359 Subjective Assessment: 01/18/24 is a 88 year old male with PMHX of CVA 2006, CHF, hyperlipidemia, HTN, [place], Type II DM, OA, CKD, and CAD. Pt presents to emergency department via EMS from the [facility] for evaluation of abnormal labs, possible lower extremity infection confusion and hallucination. Patient states he sees little girls floating but he knows they are not real. Patient is cognizant and aware of the hallucinations. Daughter states he developed green drainage from BLLE Wednesday. He then became confused the next day. She reports he often has confusion with extreme infections. Wound cultures done Wednesday at [facility] show pseudomas for BLLE. He had not been on any antibiotics until today. Repeat wound cultures completed in ER. BC x2 pending. Pt started on IV antibiotics and changed to broad spectrum antibiotics IP. Podiatry consulted and XR's of BLLE ordered. IV lasix gave in ER for CHF exacerbation as seen on CXR. Per pt's daughter pt had an angiogram on and needs further surgery of LLE for better blood flow. This is to be done per [facility] Dr. Perez. Pt follows Dr. Huggins for nephrology. Daughter would also like pt to work with PT/OT a while here as pt was up and walking with a cane in October. Pt is pleasantly confused and denies any further concerns at this time. 01/19/24 Pt resting in bed. He is still very confused but denies hallucinations. He is able to tell me he is at [facility]. He is pending podiatry eval of BLLE. Awaiting cultures of wounds and BC x2 from ER yesterday. Continue broad spectrum antibiotics. XR's of BLLE do not show osteomyelitis. Co2 16 and oral sodium bicarb started. He denies any further concerns at this time. 01/20/24 Pt resting in bed. He is awake, alert, and oriented x3 today. Podiatry evaluated pt yesterday and recommended XR Left foot and MRI. MRI was attempted last night but pt was unable to hold still. MRI to be re-attempted today. Per podiatry pt will possibly need toe amputation. This may be as soon as today. Wound cultures x2 of BLLE gram negative and sensitivity pending. Continue IV antibiotics. He denies CP, SOB, abd. pain, N/V/D. He admits to continued weakness. 01/21/24 Pt resting in bed. He is POD #1 from toe amputation with podiatry. BLLE wrapped and left leg elevated. He states he is feeling much better. He is A& O x3. Plan is to keep pt until Wednesday per podiatry for IV antibiotics. 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 Creat 2.11 and elevated today will hold LAsix and recheck labs tomorrow. He denies CP, SOB, Abd. pain, N/V/D. - Review of Systems Constitutional: Weakness, No Fever, No Chills Eyes: No Symptoms Ears, Nose, & Throat: No Symptoms Respiratory: No Cough, No Short Of Breath Cardiac: No Chest Pain, No Edema, No Syncope Abdominal/Gastrointestinal: No Abdominal Pain, No Nausea, No Vomiting, No Diarrhea Genitourinary Symptoms: No Dysuria Musculoskeletal: No Back Pain, No Neck Pain Skin: Other (BLLE wrapped), No Rash Neurological: No Dizziness, No Focal Weakness, No Sensory Changes Psychological: No Symptoms Endocrine: No Symptoms Hematologic/Lymphatic: No Symptoms Immunological/Allergic: No Symptoms Objective Exam General Appearance: no apparent distress, alert Neurologic Exam: alert, oriented x 3, cooperative, normal mood/affect, nml cerebellar function, sensation nml, motor weakness, No motor deficits Skin Exam: normal color, warm, dry Wound Assessment: Skin/Wound Assessment Wound/Incision Assessment Start: 01/18/24 18:05 Text: Status: Active Freq: Q6H Protocol: Document 01/21/24 12:00 [facility] (Rec: 01/21/24 13:57 [facility] [id number]) Wound/Incision Assessment Left Lower Calf Wound Assessment Shift Assessment Wound Type Stasis Ulcer Drainage Amount None Comment Dressing changed by podiatry nurse. Right Lower Calf Wound Assessment Shift Assessment Wound Type Stasis Ulcer Dressing Status Dry & Intact,Changed Drainage Amount None Left Great Toe Wound Type Amputation Dressing Status Reinforced Drainage Amount Moderate Drainage Description Serosanguineous Drainage Odor None/Absent General Appearance Bleeding Comment Dressing changed by podiatry nurse. This nurse reinforced d /t moderate amount of strike through noted d/t bleeding. Wound Photo Photo Taken No Eye Exam: PERRL, EOMI, eyes nml inspection Ears, Nose, Throat Exam: normal ENT inspection, pharynx normal, moist mucous membranes Neck Exam: normal inspection, non-tender, supple, full range of motion Respiratory Exam: normal breath sounds, lungs clear, No respiratory distress Cardiovascular Exam: regular rate/rhythm, normal heart sounds Gastrointestinal/Abdomen Exam: soft, No tenderness, No mass Extremity Exam: normal range of motion, other (BLLE wrapped by podiatry) Back Exam: normal inspection, normal range of motion, No CVA tenderness, No vertebral tenderness Male Genitalia Exam: deferred Rectal Exam: deferred Objective Data Vital Signs: Vital Signs - 24 hr Temp Pulse Resp BP Pulse Ox 01/21/24 12:00 70 16 124/66 99 01/21/24 08:00 74 16 144/67 97 01/21/24 04:00 97.8 F 81 18 131/71 97 01/21/24 00:00 97.3 F 76 18 134/74 98 01/20/24 20:00 97.2 F 73 18 118/64 97 01/20/24 16:00 97.6 F 75 16 166/60 92 L Pain Assessment - Last Documented Pain Intensity 2 Intake and Output: Intake & Output 01/19/24 01/20/24 01/21/24 01/22/24 11:59 11:59 11:59 11:59 Intake Total 700 2005 2021 200 Output Total 300 1225 1350 250 Balance 400 781 672 -50 Weight 87 kg 87 kg Lab Results: Lab Results-Last 24 Hours 01/20/24 01/20/24 01/21/24 Range/Units 16:43 22:23 04:10 WBC 3.2 L (4.23-9.07) x10^3/uL RBC 3.54 L (4.63-6.08) x10^6/uL Hgb 9.8 L (13.7-17.5) g/dL Hct 30.7 L (40.1-51.0) % MCV 86.7 (79.0-92.2) fL MCH 27.7 (25.7-32.2) pg MCHC 31.9 L (32.3-36.5) g/dL RDW 17.9 H (11.6-14.4) % Plt Count 129 L (163-337) x10^3/uL MPV 10.0 (9.4-12.4) fL Sodium (135-145) mmol/L Potassium (3.5-5.1) mmol/L Chloride (98-107) mmol/L Carbon Dioxide (22-30) mmol/L Anion Gap (5-15) MEQ/L BUN (9-20) mg/dL Creatinine (0.66-1.25) mg/dL Estimated GFR ML/MIN Glucose (74-106) mg/dL POC Glucometer 224 H 297 H (74 to 106) mg/dL Calcium (8.4-10.2) mg/dL Magnesium (1.6-2.3) mg/dL Total Bilirubin (0.2-1.3) mg/dL AST (17-59) U/L ALT (0-50) U/L Alkaline Phosphatase (38-126) U/L Serum Total Protein (6.3-8.2) g/dL Albumin (3.5-5.0) g/dL 01/21/24 01/21/24 01/21/24 Range/Units 04:10 07:34 11:59 WBC (4.23-9.07) x10^3/uL RBC (4.63-6.08) x10^6/uL Hgb (13.7-17.5) g/dL Hct (40.1-51.0) % MCV (79.0-92.2) fL MCH (25.7-32.2) pg MCHC (32.3-36.5) g/dL RDW (11.6-14.4) % Plt Count (163-337) x10^3/uL MPV (9.4-12.4) fL Sodium 137 (135-145) mmol/L Potassium 3.4 L (3.5-5.1) mmol/L Chloride 102 (98-107) mmol/L Carbon Dioxide 27 (22-30) mmol/L Anion Gap 11.1 (5-15) MEQ/L BUN 35 H (9-20) mg/dL Creatinine 2.11 H (0.66-1.25) mg/dL Estimated GFR 29.7 ML/MIN Glucose 150 H (74-106) mg/dL POC Glucometer 131 H 99 (74 to 106) mg/dL Calcium 8.8 (8.4-10.2) mg/dL Magnesium (1.6-2.3) mg/dL Total Bilirubin 0.60 (0.2-1.3) mg/dL AST 21 (17-59) U/L ALT 19 (0-50) U/L Alkaline Phosphatase 59 (38-126) U/L Serum Total Protein 5.9 L (6.3-8.2) g/dL Albumin 2.8 L (3.5-5.0) g/dL 01/21/24 Range/Units 12:10 WBC (4.23-9.07) x10^3/uL RBC (4.63-6.08) x10^6/uL Hgb (13.7-17.5) g/dL Hct (40.1-51.0) % MCV (79.0-92.2) fL MCH (25.7-32.2) pg MCHC (32.3-36.5) g/dL RDW (11.6-14.4) % Plt Count (163-337) x10^3/uL MPV (9.4-12.4) fL Sodium (135-145) mmol/L Potassium 4.8 D (3.5-5.1) mmol/L Chloride (98-107) mmol/L Carbon Dioxide (22-30) mmol/L Anion Gap (5-15) MEQ/L BUN (9-20) mg/dL Creatinine (0.66-1.25) mg/dL Estimated GFR ML/MIN Glucose (74-106) mg/dL POC Glucometer (74 to 106) mg/dL Calcium (8.4-10.2) mg/dL Magnesium 1.8 (1.6-2.3) mg/dL Total Bilirubin (0.2-1.3) mg/dL AST (17-59) U/L ALT (0-50) U/L Alkaline Phosphatase (38-126) U/L Serum Total Protein (6.3-8.2) g/dL Albumin (3.5-5.0) g/dL Radiology Exams: Radiology Procedures Category Date Time Status FLUOROSCOPY UP TO 1 HR Routine Exams 01/20/24 14:26 Completed FOOT (MINIMUM 3 VIEWS) Routine Exams 01/20/24 14:26 Completed MRI LOWER EXT W/O CONTRAST [MRI] Routine Exams 01/20/24 11:00 Completed Multi-Disciplinary Progress Notes: Multi-Disciplinary Progress Notes 01/21/24 11:20 Case Management Note by Bettie Che Addendum entered by Bettie Che 01/21/24 12:23: CALLED AND S/W KALLIE- DRESSING CHANGES ORDERS UPDATED AGAIN Original Note: CLARIFIED WEEKEND DRESSING CHANGE ORDERS WITH DR. ARREGUIN AT THIS TIME - ORDERS UPDATED Initialized on 01/21/24 11:20 - END OF NOTE 01/20/24 15:27 Occupational Therapy Note by Kim (L#[id number])Lyndsay OT WILL DISCHARGE CURRENT ORDER PATIENT IS TO UNDERGO SURGERY. HE WILL REQUIRE NEW ORDER WITH WEIGHTBEARING STATUS IF OT IS INDICATED. Initialized on 01/20/24 15:27 - END OF NOTE Assessment/Plan (1) CHF (congestive heart failure) Current Visit: Yes Status: Acute Qualifiers: Heart failure chronicity: acute Code(s): I50.9 - HEART FAILURE, UNSPECIFIED (2) Acute on chronic renal failure Current Visit: Yes Status: Acute Code(s): N17.9 - ACUTE KIDNEY FAILURE, UNSPECIFIED; N18.9 - CHRONIC KIDNEY DISEASE, UNSPECIFIED (3) Open wound of both legs with complication Current Visit: Yes Status: Acute Code(s): S81.801A - UNSPECIFIED OPEN WOUND, RIGHT LOWER LEG, INITIAL ENCOUNTER; S81.802A - UNSPECIFIED OPEN WOUND, LEFT LOWER LEG, INITIAL ENCOUNTER (4) Cellulitis Current Visit: Yes Status: Acute Qualifiers: Site of cellulitis: extremity Site of cellulitis of extremity: lower extremity Code(s): L03.90 - CELLULITIS, UNSPECIFIED (5) Confusion Current Visit: Yes Status: Acute Code(s): R41.0 - DISORIENTATION, UNSPECIFIED (6) Hallucination Current Visit: Yes Status: Acute Code(s): R44.3 - HALLUCINATIONS, UNSPECIFIED (7) Thrombocytopenia Current Visit: Yes Status: Acute (8) Diabetes type 2, controlled Current Visit: No Status: Chronic Qualifiers: Code(s): E11.9 - TYPE 2 DIABETES MELLITUS WITHOUT COMPLICATIONS (9) Hypothyroidism Current Visit: Yes Status: Chronic Code(s): E03.9 - HYPOTHYROIDISM, UNSPECIFIED (10) Weakness Current Visit: Yes Status: Acute Code(s): R53.1 - WEAKNESS (11) BPH (benign prostatic hyperplasia) Current Visit: Yes Status: Chronic Code(s): N40.0 - BENIGN PROSTATIC HYPERPLASIA WITHOUT LOWER URINRY TRACT SYMP (12) Metabolic acidosis Current Visit: Yes Status: Acute Assessment & Plan: (1) CHF (congestive heart failure) Current Visit: Yes Status: Acute Qualifiers: Heart failure chronicity: acute Assessment & Plan: - CXR reviewed - Lasix IV gave in ER - I&O's - Trop negative- trend - tele - BNP [id number] - CXR shows pulm edema - Echo 07/19/23- EF 15-20% IMPRESSION: 1. SEVERE LEFT VENTRICULAR SYSTOLIC DYSFUNCTION. 2. SEVERE ASSYMMETRIC LEFT VENTRICULAR HYPERTROPHY INVOLVING THE INTERVENTRICULAR SEPTUM. 3. BORDERLINE LEFT ATRIAL DILATATION. 4. MILD TRICUSPID REGURGITATION. 5. MILD MITRAL REGURGITATION. 6. NORMAL RIGHT VENTRICULAR SYSTOLIC PRESSURE. 01/18 -CMP reviewed - Continue Lasix 60mg PO BID- home dose 01/18 - Lungs clear - RA 95% - improved - consider repeat CXR 01/20 - hold lasix d/t STEPHANY - remains at room air 99% Code(s): I50.9 - HEART FAILURE, UNSPECIFIED (2) Acute on chronic renal failure Current Visit: Yes Status: Acute Assessment & Plan: - Creat 1.91, baseline 1.75- trend - Anion gap 17.2 - Encouraged oral intake d/t fluid restrictions at hospital. 01/18 - Creat 1.85- near baseline - CMP reviewed - Continue Lasix 60mg PO BID- home dose 01/19 - Creat 2.09- trend 01/20 - creat 2.11- hold lasix today- trend Code(s): N17.9 - ACUTE KIDNEY FAILURE, UNSPECIFIED; N18.9 - CHRONIC KIDNEY DISEASE, UNSPECIFIED (3) Open wound of both legs with complication Current Visit: Yes Status: Acute Assessment & Plan: - IV antibiotics Linezoid and Zosyn - podiatry consult - Wound cultures from 01/13 show Pseudomonas BLLE - repeat wound cultures completed in ER. - BC x2 - per daughter + green drainage this past weekend and then confusion started. - XR BLLE reviewed- negative for osteomyelitis - CBC reviewed daily 01/19 - XR and MRI of left foot ordered- possible amputation today with podiatry - reviewed podiatry note and agree with plan of care. - more wound cultures completed by podiatry of left foot 01/20 - MRI and XR of Left foot reviewed -POD# 1 toe amputation with podiatry - Left lower medial wound + for pseudomonas - Right lateral gram negative sensitivity pending - left greater big toe - gram negative sensitivity pending. - Consider stopping Zyvox after results complete - Continue Zosyn and Zyvox for now Code(s): S81.801A - UNSPECIFIED OPEN WOUND, RIGHT LOWER LEG, INITIAL ENCOUNTER; S81.802A - UNSPECIFIED OPEN WOUND, LEFT LOWER LEG, INITIAL ENCOUNTER (4) Cellulitis Current Visit: Yes Status: Acute Qualifiers: Site of cellulitis: extremity Site of cellulitis of extremity: lower extremity Assessment & Plan: - BLLE - Doxycycline IV started in ER, - IV antibiotics Linezoid and Zosyn started IIP - podiatry consult - Wound cultures from 01/13 show Pseudomonas BLLE - repeat wound cultures completed in ER. - per daughter + green drainage this past weekend and then confusion started. 01/19 - Wound cultures x2 gram negative- sensitivity pending - Continue IV antibiotics 01/20 -Wound cultures BLLE + for Pseudomonas and citrobacter - Continue IV antibiotics Code(s): L03.90 - CELLULITIS, UNSPECIFIED (5) Confusion Current Visit: Yes Status: Acute Assessment & Plan: - CXR and CT head reviewed. - CBC and CMP reviewed. - Daughter reports pt has increased confusion with infections 01/18 - continued confusion 01/19 - resolved Code(s): R41.0 - DISORIENTATION, UNSPECIFIED (6) Hallucination Current Visit: Yes Status: Acute Assessment & Plan: - CT head negative for acute concern - Monitor 01/18 - denies hallucinations 01/19 - resolved Code(s): R44.3 - HALLUCINATIONS, UNSPECIFIED (7) Thrombocytopenia Current Visit: Yes Status: Acute Assessment & Plan: - Platelets 127- trend - Daughter does not want further workup for this or referral OP to oncology/heamtology. 01/18 - Plt 113- trend 01/19 - PLT 111- trend 01/20 - Plt 129- improved- trend (8) Diabetes type 2, controlled Current Visit: No Status: Chronic Qualifiers: Assessment & Plan: - 11/30/23 A1C 7.64 - Controlled - Continue accuchecks ac/hs, humalog and lantus dosing - Carb consistent diet Code(s): E11.9 - TYPE 2 DIABETES MELLITUS WITHOUT COMPLICATIONS (9) Hypothyroidism Current Visit: Yes Status: Chronic Assessment & Plan: - Continue synthroid - 11/30/23 TSH 3.9- WNL Code(s): E03.9 - HYPOTHYROIDISM, UNSPECIFIED (10) Weakness Current Visit: Yes Status: Acute Assessment & Plan: - Per daughter, pt was up and walking with a cane in October - Lives in [facility] - PT/OT eval and treat 01/19 - Continued weakness Code(s): R53.1 - WEAKNESS (11) BPH (benign prostatic hyperplasia) Current Visit: Yes Status: Chronic Assessment & Plan: - Continue Flomax Code(s): N40.0 - BENIGN PROSTATIC HYPERPLASIA WITHOUT LOWER URINRY TRACT SYMP Code(s): N40.0 - BENIGN PROSTATIC HYPERPLASIA WITHOUT LOWER URINRY TRACT SYMP (12) Metabolic acidosis Current Visit: Yes Status: Acute Assessment & Plan: - CO2 16 - started oral sodium bicarb 01/19 - oral sodium bicarb stopped - Co2 26 - resolved Code(s): E87.20 - ACIDOSIS, UNSPECIFIED Code(s): E87.20 - ACIDOSIS, UNSPECIFIED (13) Amputated toe of left foot Current Visit: Yes Status: Acute Assessment & Plan: - POD #1 of left foot big toe amputation with podiatry - BLLE wrapped - LLE elevated - IV antibiotics Code(s): S98.132A - COMPLETE TRAUMATIC AMPUTATION OF ONE LEFT LESSER TOE, INIT (14) Osteomyelitis of toe of left foot Current Visit: Yes Status: Acute Assessment & Plan: - as seen on MRI 01/20/24 - ordered by podiatry - see post op amputation plan above Code(s): M86.9 - OSTEOMYELITIS, UNSPECIFIED (15) Hypokalemia Current Visit: Yes Status: Acute Assessment & Plan: - K+ 3.4- replaced- trend VTE: Xarelto PPI: Protonix Next of KIN: daughter D/C plan: 2-3 days Code status: SCO/DNR Code(s): E87.6 - HYPOKALEMIA
[2024-01-21] MEDS: ULTRAM 50 MG PO PRN (14:09)
[2024-01-21 15:01] LABS: Hematocrit 27.7 % (40.1-51.0); Hemoglobin 8.8 g/dL (13.7-17.5)
[2024-01-21 23:50] LABS: Hematocrit 26.5 % (40.1-51.0); Hemoglobin 8.2 g/dL (13.7-17.5)
[2024-01-22 06:34] LABS: Hematocrit 25.6 % (40.1-51.0); Hemoglobin 7.9 g/dL (13.7-17.5); Mean Cell Volume 88.3 fL (79.0-92.2); Mean Corpuscular Hemoglobin 27.2 pg (25.7-32.2); Mean Corpuscular Hgb Concent. 30.9 g/dL (32.3-36.5); Mean Platelet Volume 10.1 fL (9.4-12.4); Platelet Count 126 x10^3/uL (163-337); White Blood Count 3.2 x10^3/uL (4.23-9.07)
[2024-01-22 06:48] LABS: ALBUMIN 2.7 g/dL (3.5-5.0); ANION GAP 10.4 MEQ/L (5-15); BILIRUBIN,TOTAL 0.5 mg/dL (0.2-1.3); Calcium 8.6 mg/dL (8.4-10.2); Creatinine 1 2.13 mg/dL (0.66-1.25); EST GLOMERULAR FILTRATION RATE 29.4 ML/MIN; Potassium 4.4 mmol/L (3.5-5.1); Total Protein 5.6 g/dL (6.3-8.2)
--- NOTE | 2024-01-22 11:05 | PCM.NOTE ---
Date and Time: 01/22/24 1103 Subjective Assessment: 01/18/24 is a 88 year old male with PMHX of CVA 2006, CHF, hyperlipidemia, HTN, ND, Type II DM, OA, CKD, and CAD. Pt presents to emergency department via EMS from the [facility] for evaluation of abnormal labs, possible lower extremity infection confusion and hallucination. Patient states he sees little girls floating but he knows they are not real. Patient is cognizant and aware of the hallucinations. Daughter states he developed green drainage from BLLE Wednesday. He then became confused the next day. She reports he often has confusion with extreme infections. Wound cultures done Wednesday at [facility] show pseudomas for BLLE. He had not been on any antibiotics until today. Repeat wound cultures completed in ER. BC x2 pending. Pt started on IV antibiotics and changed to broad spectrum antibiotics IP. Podiatry consulted and XR's of BLLE ordered. IV lasix gave in ER for CHF exacerbation as seen on CXR. Per pt's daughter pt had an angiogram on and needs further surgery of LLE for better blood flow. This is to be done per Manufacturing Clerk Dr. Perez. Pt follows Dr. Huggins for nephrology. Daughter would also like pt to work with PT/OT a while here as pt was up and walking with a cane in October. Pt is pleasantly confused and denies any further concerns at this time. 01/19/24 Pt resting in bed. He is still very confused but denies hallucinations. He is able to tell me he is at [facility]. He is pending podiatry eval of BLLE. Awaiting cultures of wounds and BC x2 from ER yesterday. Continue broad spectrum antibiotics. XR's of BLLE do not show osteomyelitis. Co2 16 and oral sodium bicarb started. He denies any further concerns at this time. 01/20/24 Pt resting in bed. He is awake, alert, and oriented x3 today. Podiatry evaluated pt yesterday and recommended XR Left foot and MRI. MRI was attempted last night but pt was unable to hold still. MRI to be re-attempted today. Per podiatry pt will possibly need toe amputation. This may be as soon as today. Wound cultures x2 of BLLE gram negative and sensitivity pending. Continue IV antibiotics. He denies CP, SOB, abd. pain, N/V/D. He admits to continued weakness. 01/21/24 Pt resting in bed. He is POD #1 from toe amputation with podiatry. BLLE wrapped and left leg elevated. He states he is feeling much better. He is A& O x3. Plan is to keep pt until Wednesday per podiatry for IV antibiotics. 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 Creat 2.11 and elevated today will hold LAsix and recheck labs tomorrow. He denies CP, SOB, Abd. pain, N/V/D. 01/22/24 Pt resting in bed. Per nursing staff pt's left foot dressing had to be changed mutiple time s yesterday ad it was saturated with blood. Nurse was able to d iscuss with podiatry and blood thinner was held. No overnight bleeding and blood thinner restarted today. Hgb 7.9 and recheck at noon was 8.2. He is having hallucinations today again and stated he saw an elderly couple in his room with silver hair but they are no longer there. Creat 2.13 and worse than yesterday, metolazone held. Lasix also held again today. NS at 50ml/hr x1 500ml ordered. Pt has a hx of CHF and do not want to cause fluid overload. Glucose dropped to 54 last night. Lantus at HS changed to AM. Will continue to monitor. Toe culture pending. Continue Zosyn and Zyvox for Osteomyelitis and Cellulitis of BLLE. Pt denies any further concerns at this time. - Review of Systems Constitutional: Weakness, No Fever, No Chills Eyes: No Symptoms Ears, Nose, & Throat: No Symptoms Respiratory: No Cough, No Short Of Breath Cardiac: No Chest Pain, No Edema, No Syncope Abdominal/Gastrointestinal: No Abdominal Pain, No Nausea, No Vomiting, No Diarrhea Genitourinary Symptoms: No Dysuria Musculoskeletal: No Back Pain, No Neck Pain Skin: Skin Lesions (BLLE wrapped), No Rash Neurological: No Dizziness, No Focal Weakness, No Sensory Changes Psychological: No Symptoms, Hallucinations Endocrine: No Symptoms Hematologic/Lymphatic: No Symptoms Immunological/Allergic: No Symptoms Objective Exam General Appearance: no apparent distress, alert Neurologic Exam: alert, oriented x 3, cooperative, normal mood/affect, nml cerebellar function, sensation nml, motor weakness, No motor deficits Skin Exam: normal color, warm, dry Wound Assessment: Skin/Wound Assessment Wound/Incision Assessment Start: 01/18/24 18:05 Text: Status: Active Freq: Q6H Protocol: Document 01/22/24 04:00 LB (Rec: 01/22/24 04:36 LB [id number]) Wound/Incision Assessment Left Lower Calf Wound Assessment Shift Assessment Wound Type Stasis Ulcer Dressing Status Changed Drainage Amount None Right Lower Calf Wound Assessment Shift Assessment Wound Type Stasis Ulcer Dressing Status Dry & Intact,Changed Drainage Amount None Left Great Toe Wound Assessment Shift Assessment Wound Type Amputation Dressing Status Dry & Intact Drainage Amount None Drainage Odor None/Absent Comment dressing CDI Wound Photo Photo Taken No Eye Exam: PERRL, EOMI, eyes nml inspection Ears, Nose, Throat Exam: normal ENT inspection, pharynx normal, moist mucous membranes Neck Exam: normal inspection, non-tender, supple, full range of motion Respiratory Exam: normal breath sounds, lungs clear, No respiratory distress Cardiovascular Exam: regular rate/rhythm, normal heart sounds Gastrointestinal/Abdomen Exam: soft, No tenderness, No mass Extremity Exam: normal inspection, normal range of motion, other (BLLE wrapped) Back Exam: normal inspection, normal range of motion, No CVA tenderness, No vertebral tenderness Male Genitalia Exam: deferred Rectal Exam: deferred Objective Data Vital Signs: Vital Signs - 24 hr Temp Pulse Resp BP Pulse Ox 01/22/24 07:40 97.3 F 82 18 116/67 93 L 01/22/24 03:58 98.2 F 83 16 140/71 98 01/22/24 00:00 97.9 F 91 H 17 137/68 94 L 01/21/24 20:00 98.7 F 77 16 116/67 94 L 01/21/24 15:41 97.2 F 77 16 136/70 94 L 01/21/24 12:00 70 16 124/66 99 Pain Assessment - Last Documented Pain Intensity 0 Intake and Output: Intake & Output 01/19/24 01/20/24 01/21/24 01/22/24 11:59 11:59 11:59 11:59 Intake Total 700 2005 2021 124 Output Total 300 1225 1350 1775 Balance 400 841 912 -712 Weight 87 kg 87 kg Lab Results: Lab Results-Last 24 Hours 01/21/24 01/21/24 01/21/24 Range/Units 11:59 12:10 14:58 WBC (4.23-9.07) x10^3/uL RBC (4.63-6.08) x10^6/uL Hgb 8.8 L (13.7-17.5) g/dL Hct 27.7 L (40.1-51.0) % MCV (79.0-92.2) fL MCH (25.7-32.2) pg MCHC (32.3-36.5) g/dL RDW (11.6-14.4) % Plt Count (163-337) x10^3/uL MPV (9.4-12.4) fL Sodium (135-145) mmol/L Potassium 4.8 D (3.5-5.1) mmol/L Chloride (98-107) mmol/L Carbon Dioxide (22-30) mmol/L Anion Gap (5-15) MEQ/L BUN (9-20) mg/dL Creatinine (0.66-1.25) mg/dL Estimated GFR ML/MIN Glucose (74-106) mg/dL POC Glucometer 99 (74 to 106) mg/dL Calcium (8.4-10.2) mg/dL Magnesium 1.8 (1.6-2.3) mg/dL Total Bilirubin (0.2-1.3) mg/dL AST (17-59) U/L ALT (0-50) U/L Alkaline Phosphatase (38-126) U/L Serum Total Protein (6.3-8.2) g/dL Albumin (3.5-5.0) g/dL 01/21/24 01/21/24 01/21/24 Range/Units 16:52 17:48 21:16 WBC (4.23-9.07) x10^3/uL RBC (4.63-6.08) x10^6/uL Hgb (13.7-17.5) g/dL Hct (40.1-51.0) % MCV (79.0-92.2) fL MCH (25.7-32.2) pg MCHC (32.3-36.5) g/dL RDW (11.6-14.4) % Plt Count (163-337) x10^3/uL MPV (9.4-12.4) fL Sodium (135-145) mmol/L Potassium (3.5-5.1) mmol/L Chloride (98-107) mmol/L Carbon Dioxide (22-30) mmol/L Anion Gap (5-15) MEQ/L BUN (9-20) mg/dL Creatinine (0.66-1.25) mg/dL Estimated GFR ML/MIN Glucose (74-106) mg/dL POC Glucometer 54 L 82 234 H (74 to 106) mg/dL Calcium (8.4-10.2) mg/dL Magnesium (1.6-2.3) mg/dL Total Bilirubin (0.2-1.3) mg/dL AST (17-59) U/L ALT (0-50) U/L Alkaline Phosphatase (38-126) U/L Serum Total Protein (6.3-8.2) g/dL Albumin (3.5-5.0) g/dL 01/21/24 01/22/24 01/22/24 Range/Units 23:30 05:48 05:48 WBC 3.2 L (4.23-9.07) x10^3/uL RBC 2.90 L (4.63-6.08) x10^6/uL Hgb 8.2 L 7.9 L (13.7-17.5) g/dL Hct 26.5 L 25.6 L (40.1-51.0) % MCV 88.3 (79.0-92.2) fL MCH 27.2 (25.7-32.2) pg MCHC 30.9 L (32.3-36.5) g/dL RDW 18.0 H (11.6-14.4) % Plt Count 126 L (163-337) x10^3/uL MPV 10.1 (9.4-12.4) fL Sodium 138 (135-145) mmol/L Potassium 4.4 (3.5-5.1) mmol/L Chloride 105 (98-107) mmol/L Carbon Dioxide 26 (22-30) mmol/L Anion Gap 10.4 (5-15) MEQ/L BUN 30 H (9-20) mg/dL Creatinine 2.13 H (0.66-1.25) mg/dL Estimated GFR 29.4 ML/MIN Glucose 210 H (74-106) mg/dL POC Glucometer (74 to 106) mg/dL Calcium 8.6 (8.4-10.2) mg/dL Magnesium (1.6-2.3) mg/dL Total Bilirubin 0.50 (0.2-1.3) mg/dL AST 20 (17-59) U/L ALT 15 (0-50) U/L Alkaline Phosphatase 52 (38-126) U/L Serum Total Protein 5.6 L (6.3-8.2) g/dL Albumin 2.7 L (3.5-5.0) g/dL 01/22/24 Range/Units 07:23 WBC (4.23-9.07) x10^3/uL RBC (4.63-6.08) x10^6/uL Hgb (13.7-17.5) g/dL Hct (40.1-51.0) % MCV (79.0-92.2) fL MCH (25.7-32.2) pg MCHC (32.3-36.5) g/dL RDW (11.6-14.4) % Plt Count (163-337) x10^3/uL MPV (9.4-12.4) fL Sodium (135-145) mmol/L Potassium (3.5-5.1) mmol/L Chloride (98-107) mmol/L Carbon Dioxide (22-30) mmol/L Anion Gap (5-15) MEQ/L BUN (9-20) mg/dL Creatinine (0.66-1.25) mg/dL Estimated GFR ML/MIN Glucose (74-106) mg/dL POC Glucometer 184 H (74 to 106) mg/dL Calcium (8.4-10.2) mg/dL Magnesium (1.6-2.3) mg/dL Total Bilirubin (0.2-1.3) mg/dL AST (17-59) U/L ALT (0-50) U/L Alkaline Phosphatase (38-126) U/L Serum Total Protein (6.3-8.2) g/dL Albumin (3.5-5.0) g/dL Radiology Exams: Radiology Procedures Category Date Time Status FLUOROSCOPY UP TO 1 HR Routine Exams 01/20/24 14:26 Completed FOOT (MINIMUM 3 VIEWS) Routine Exams 01/20/24 14:26 Completed MRI LOWER EXT W/O CONTRAST [MRI] Routine Exams 01/20/24 11:00 Completed Multi-Disciplinary Progress Notes: Multi-Disciplinary Progress Notes 01/21/24 12:00 (created 01/21/24 14:14) Case Management Note by Bettie Che S/W PATIENT AND DAUGHTER, EN, PATIENT CONTINUES TO PLAN TO TRANSITION BACK TO [facility] AT TIME OF DC Initialized on 01/21/24 14:14 - END OF NOTE 01/21/24 11:20 Case Management Note by Bettie Che Addendum entered by Bettie Che 01/21/24 12:23: CALLED AND S/W KALLIE- DRESSING CHANGES ORDERS UPDATED AGAIN Original Note: CLARIFIED WEEKEND DRESSING CHANGE ORDERS WITH DR. ARREGUIN AT THIS TIME - ORDERS UPDATED Initialized on 01/21/24 11:20 - END OF NOTE Assessment/Plan (1) CHF (congestive heart failure) Current Visit: Yes Status: Acute Qualifiers: Heart failure chronicity: acute Code(s): I50.9 - HEART FAILURE, UNSPECIFIED (2) Acute on chronic renal failure Current Visit: Yes Status: Acute Code(s): N17.9 - ACUTE KIDNEY FAILURE, U NSPECIFIED; N18.9 - CHRONIC KIDNEY DISEASE, UNSPECIFIED (3) Open wound of both legs with complication Current Visit: Yes Status: Acute Code(s): S81.801A - UNSPECIFIED OPEN WOUND, RIGHT LOWER LEG, INITIAL ENCOUNTER; S81.802A - UNSPECIFIED OPEN WOUND, LEFT LOWER LEG, INITIAL ENCOUNTER (4) Cellulitis Current Visit: Yes Status: Acute Qualifiers: Site of cellulitis: extremity Site of cellulitis of extremity: lower extremity Code(s): L03.90 - CELLULITIS, UNSPECIFIED (5) Confusion Current Visit: Yes Status: Acute Code(s): R41.0 - DISORIENTATION, UNSPECIFIED (6) Hallucination Current Visit: Yes Status: Acute Code(s): R44.3 - HALLUCINATIONS, UNSPECIFIED (7) Thrombocytopenia Current Visit: Yes Status: Acute (8) Diabetes type 2, controlled Current Visit: No Status: Chronic Qualifiers: Code(s): E11.9 - TYPE 2 DIABETES MELLITUS WITHOUT COMPLICATIONS (9) Hypothyroidism Current Visit: Yes Status: Chronic Code(s): E03.9 - HYPOTHYROIDISM, UNSPECIFIED (10) Weakness Current Visit: Yes Status: Acute Code(s): R53.1 - WEAKNESS (11) BPH (benign prostatic hyperplasia) Current Visit: Yes Status: Chronic Code(s): N40.0 - BENIGN PROSTATIC HYPERPLASIA WITHOUT LOWER URINRY TRACT SYMP (12) Metabolic acidosis Current Visit: Yes Status: Acute Code(s): E87.20 - ACIDOSIS, UNSPECIFIED (13) Amputated toe of left foot Current Visit: Yes Status: Acute Code(s): S98.132A - COMPLETE TRAUMATIC AMPUTATION OF ONE LEFT LESSER TOE, INIT (14) Osteomyelitis of toe of left foot Current Visit: Yes Status: Acute Code(s): M86.9 - OSTEOMYELITIS, UNSPECIFIED (15) Hypokalemia Current Visit: Yes Status: Acute Assessment & Plan: (1) CHF (congestive heart failure) Current Visit: Yes Status: Acute Qualifiers: Heart failure chronicity: acute Assessment & Plan: - CXR reviewed - Lasix IV gave in ER - I&O's - Trop negative- trend - tele - BNP 32369 - CXR shows pulm edema - Echo 07/19/23- EF 15-20% IMPRESSION: 1. SEVERE LEFT VENTRICULAR SYSTOLIC DYSFUNCTION. 2. SEVERE ASSYMMETRIC LEFT VENTRICULAR HYPERTROPHY INVOLVING THE INTERVENTRICULAR SEPTUM. 3. BORDERLINE LEFT ATRIAL DILATATION. 4. MILD TRICUSPID REGURGITATION. 5. MILD MITRAL REGURGITATION. 6. NORMAL RIGHT VENTRICULAR SYSTOLIC PRESSURE. 01/18 -CMP reviewed - Continue Lasix 60mg PO BID- home dose 01/18 - Lungs clear - RA 95% - improved - consider repeat CXR 01/20 - hold lasix d/t STEPHANY - remains at room air 99% 01/21 - hold lasix Code(s): I50.9 - HEART FAILURE, UNSPECIFIED (2) Acute on chronic renal failure Current Visit: Yes Status: Acute Assessment & Plan: - Creat 1.91, baseline 1.75- trend - Anion gap 17.2 - Encouraged oral intake d/t fluid restrictions at hospital. 01/18 - Creat 1.85- near baseline - CMP reviewed - Continue Lasix 60mg PO BID- home dose 01/19 - Creat 2.09- trend 01/20 - creat 2.11- hold lasix today- trend 01/21 - Creat 2.13 - hold Lasix and Metolazone - NS @ 50 ml x1 500ml bag Code(s): N17.9 - ACUTE KIDNEY FAILURE, UNSPECIFIED; N18.9 - CHRONIC KIDNEY DISEASE, UNSPECIFIED (3) Open wound of both legs with complication Current Visit: Yes Status: Acute Assessment & Plan: - IV antibiotics Linezoid and Zosyn - podiatry consult - Wound cultures from 01/13 show Pseudomonas BLLE - repeat wound cultures completed in ER. - BC x2 - per daughter + green drainage this past weekend and then confusion started. - XR BLLE reviewed- negative for osteomyelitis - CBC reviewed daily 01/19 - XR and MRI of left foot ordered- possible amputation today with podiatry - reviewed podiatry note and agree with plan of care. - more wound cultures completed by podiatry of left foot 01/20 - MRI and XR of Left foot reviewed -POD# 1 toe amputation with podiatry - Left lower medial wound + for pseudomonas - Right lateral gram negative sensitivity pending - left greater big toe - gram negative sensitivity pending. - Consider stopping Zyvox after results complete - Continue Zosyn and Zyvox for now 01/21 -Toe culture pending - Continue Zosyn and Zyvox for now - CBC, CMP reviewed Code(s): S81.801A - UNSPECIFIED OPEN WOUND, RIGHT LOWER LEG, INITIAL ENCOUNTER; S81.802A - UNSPECIFIED OPEN WOUND, LEFT LOWER LEG, INITIAL ENCOUNTER (4) Cellulitis Current Visit: Yes Status: Acute Qualifiers: Site of cellulitis: extremity Site of cellulitis of extremity: lower extremity Assessment & Plan: - BLLE - Doxycycline IV started in ER, - IV antibiotics Linezoid and Zosyn started IIP - podiatry consult - Wound cultures from 01/13 show Pseudomonas BLLE - repeat wound cultures completed in ER. - per daughter + green drainage this past weekend and then confusion started. 01/19 - Wound cultures x2 gram negative- sensitivity pending - Continue IV antibiotics 01/20 - Wound cultures BLLE + for Pseudomonas and citrobacter - Continue IV antibiotics Code(s): L03.90 - CELLULITIS, UNSPECIFIED (5) Confusion Current Visit: Yes Status: Acute Assessment & Plan: - CXR and CT head reviewed. - CBC and CMP reviewed. - Daughter reports pt has increased confusion with infections 01/18 - continued confusion 01/19 - resolved Code(s): R41.0 - DISORIENTATION, UNSPECIFIED (6) Hallucination Current Visit: Yes Status: Acute Assessment & Plan: - CT head negative for acute concern - Monitor 01/18 - denies hallucinations 01/19 - resolved 01/21 - + hallucinations today Code(s): R44.3 - HALLUCINATIONS, UNSPECIFIED (7) Thrombocytopenia Current Visit: Yes Status: Acute Assessment & Plan: - Platelets 127- trend - Daughter does not want further workup for this or referral OP to oncology/heamtology. 01/18 - Plt 113- trend 01/19 - PLT 111- trend 01/20 - Plt 129- improved- trend 01/21 - PLT 126- trend (8) Diabetes type 2, controlled Current Visit: No Status: Chronic Qualifiers: Assessment & Plan: - 11/30/23 A1C 7.64 - Controlled - Continue accuchecks ac/hs, humalog and lantus dosing - Carb consistent diet 01/21 - Glucose dropped to 54 last night - Changed Lantus from HS to QAM - Hypoglycemia protocol added - Continue to monitor accuchecks Code(s): E11.9 - TYPE 2 DIABETES MELLITUS WITHOUT COMPLICATIONS (9) Hypothyroidism Current Visit: Yes Status: Chronic Assessment & Plan: - Continue synthroid - 11/30/23 TSH 3.9- WNL Code(s): E03.9 - HYPOTHYROIDISM, UNSPECIFIED (10) Weakness Current Visit: Yes Status: Acute Assessment & Plan: - Per daughter, pt was up and walking with a cane in October - Lives in [facility] - PT/OT eval and treat 01/19 - Continued weakness Code(s): R53.1 - WEAKNESS (11) BPH (benign prostatic hyperplasia) Current Visit: Yes Status: Chronic Assessment & Plan: - Continue Flomax Code(s): N40.0 - BENIGN PROSTATIC HYPERPLASIA WITHOUT LOWER URINRY TRACT SYMP Code(s): N40.0 - BENIGN PROSTATIC HYPERPLASIA WITHOUT LOWER URINRY TRACT SYMP (12) Metabolic acidosis Current Visit: Yes Status: Acute Assessment & Plan: - CO2 16 - started oral sodium bicarb 01/19 - oral sodium bicarb stopped - Co2 26 - resolved Code(s): E87.20 - ACIDOSIS, UNSPECIFIED Code(s): E87.20 - ACIDOSIS, UNSPECIFIED (13) Amputated toe of left foot Current Visit: Yes Status: Acute Assessment & Plan: - POD #1 of left foot big toe amputation with podiatry - BLLE wrapped - LLE elevated - IV antibiotics - Repeat dressing changes all day by nursing d/t heavy bleeding- Hgb checked in the afternoon and stable, Blood thinner stopper, podiatry notified by nursing. 01/21 - No overnight bleeding - Blood thinner restarted - Hgb 7.9- rechecked at noon and 8.2 - dressing changes by nursing per podiatry recs Code(s): S98.132A - COMPLETE TRAUMATIC AMPUTATION OF ONE LEFT LESSER TOE, INIT (14) Osteomyelitis of toe of left foot Current Visit: Yes Status: Acute Assessment & Plan: - as seen on MRI 01/20/24 - ordered by podiatry - see post op amputation plan above Code(s): M86.9 - OSTEOMYELITIS, UNSPECIFIED (15) Hypokalemia Current Visit: Yes Status: Acute Assessment & Plan: - K+ 3.4- replaced- trend- repeat lab 4.8 01/21 - K+ 4.4- resolved VTE: Xarelto PPI: Protonix Next of KIN: daughter D/C plan: stay until Wednesday per podiatry Code status: SCO/DNR Code(s): E87.6 - HYPOKALEMIA Additional CC's: LULÚ SR Code(s): E87.6 - HYPOKALEMIA
[2024-01-22 12:09] LABS: Hematocrit 26.1 % (40.1-51.0); Hemoglobin 8.2 g/dL (13.7-17.5)
[2024-01-22] MEDS: Sodium Chloride 0.9% 500 ML 500 ML IV SCH (12:38)
[2024-01-22] MEDS ORDERED: GlucaGen 1 MG IM PRN (13:31)
[2024-01-22] MEDS ORDERED: Glutose 15 GM ORAL GEL PO PRN (13:31)
[2024-01-23 07:01] LABS: Hemoglobin 7.2 g/dL (13.7-17.5); Mean Cell Volume 87.8 fL (79.0-92.2); Mean Corpuscular Hemoglobin 27.5 pg (25.7-32.2); Mean Corpuscular Hgb Concent. 31.3 g/dL (32.3-36.5); Mean Platelet Volume 10.5 fL (9.4-12.4); Platelet Count 120 x10^3/uL (163-337); Red Blood Count 2.62 x10^6/uL (4.63-6.08); Red Cell Distribution Width 18.5 % (11.6-14.4); White Blood Count 3.2 x10^3/uL (4.23-9.07)
[2024-01-23 07:13] LABS: ALBUMIN 2.6 g/dL (3.5-5.0); BILIRUBIN,TOTAL 0.5 mg/dL (0.2-1.3); Calcium 8.2 mg/dL (8.4-10.2); Creatinine 1 2.03 mg/dL (0.66-1.25); EST GLOMERULAR FILTRATION RATE 31.2 ML/MIN; Potassium 4.1 mmol/L (3.5-5.1); Total Protein 5.5 g/dL (6.3-8.2)
[2024-01-23] MEDS: Lantus Insulin SQ SCH (10:07)
[2024-01-23 12:08] LABS: Hematocrit 24.3 % (40.1-51.0); Hemoglobin 7.7 g/dL (13.7-17.5)
--- NOTE | 2024-01-23 13:10 | PCM.NOTE ---
Date and Time: 01/23/24 1300 Subjective Assessment: 01/18/24 is a 88 year old male with PMHX of CVA 2006, CHF, hyperlipidemia, HTN, [place], Type II DM, OA, CKD, and CAD. Pt presents to emergency department via EMS from the [facility] for evaluation of abnormal labs, possible lower extremity infection confusion and hallucination. Patient states he sees little girls floating but he knows they are not real. Patient is cognizant and aware of the hallucinations. Daughter states he developed green drainage from BLLE Wednesday. He then became confused the next day. She reports he often has confusion with extreme infections. Wound cultures done Wednesday at [facility] show pseudomas for BLLE. He had not been on any antibiotics until today. Repeat wound cultures completed in ER. BC x2 pending. Pt started on IV antibiotics and changed to broad spectrum antibiotics IP. Podiatry consulted and XR's of BLLE ordered. IV lasix gave in ER for CHF exacerbation as seen on CXR. Per pt's daughter pt had an angiogram on and needs further surgery of LLE for better blood flow. This is to be done per [employer] Dr. Perez. Pt follows Dr. Huggins for nephrology. Daughter would also like pt to work with PT/OT a while here as pt was up and walking with a cane in October. Pt is pleasantly confused and denies any further concerns at this time. 01/19/24 Pt resting in bed. He is still very confused but denies hallucinations. He is able to tell me he is at [facility]. He is pending podiatry eval of BLLE. Awaiting cultures of wounds and BC x2 from ER yesterday. Continue broad spectrum antibiotics. XR's of BLLE do not show osteomyelitis. Co2 16 and oral sodium bicarb started. He denies any further concerns at this time. 01/20/24 Pt resting in bed. He is awake, alert, and oriented x3 today. Podiatry evaluated pt yesterday and recommended XR Left foot and MRI. MRI was attempted last night but pt was unable to hold still. MRI to be re-attempted today. Per podiatry pt will possibly need toe amputation. This may be as soon as today. Wound cultures x2 of BLLE gram negative and sensitivity pending. Continue IV antibiotics. He denies CP, SOB, abd. pain, N/V/D. He admits to continued weakness. 01/21/24 Pt resting in bed. He is POD #1 from toe amputation with podiatry. BLLE wrapped and left leg elevated. He states he is feeling much better. He is A& O x3. Plan is to keep pt until Wednesday per podiatry for IV antibiotics. 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 Creat 2.11 and elevated today will hold LAsix and recheck labs tomorrow. He denies CP, SOB, Abd. pain, N/V/D. 01/22/24 Pt resting in bed. Per nursing staff pt's left foot dressing had to be changed mutiple time s yesterday ad it was saturated with blood. Nurse was able to d iscuss with podiatry and blood thinner was held. No overnight bleeding and blood thinner restarted today. Hgb 7.9 and recheck at noon was 8.2. He is having hallucinations today again and stated he saw an elderly couple in his room with silver hair but they are no longer there. Creat 2.13 and worse than yesterday, metolazone held. Lasix also held again today. NS at 50ml/hr x1 500ml ordered. Pt has a hx of CHF and do not want to cause fluid overload. Glucose dropped to 54 last night. Lantus at HS changed to AM. Will continue to monitor. Toe culture pending. Continue Zosyn and Zyvox for Osteomyelitis and Cellulitis of BLLE. Pt denies any further concerns at this time. 01/22 Pt restiing in bed. Plan is to close left foot by podiatry Wednesday. No bleeding overnight per nursing. Hgb 7.2 today- will ordere H& H Q6 to monitor. Continue IV antibiotics. + MRSA of left foot big toe. STEPHANY improved today. He continues to have hallucinations but is A& O x3. He denies any further concerns at this time. - Review of Systems Constitutional: No Fever, No Chills Eyes: No Symptoms Ears, Nose, & Throat: No Symptoms Respiratory: No Cough, No Short Of Breath Cardiac: No Chest Pain, No Edema, No Syncope Abdominal/Gastrointestinal: No Abdominal Pain, No Nausea, No Vomiting, No Diarrhea Genitourinary Symptoms: No Dysuria Musculoskeletal: No Back Pain, No Neck Pain Skin: Skin Lesions, Other (BLLE wrapped), No Rash Neurological: No Dizziness, No Focal Weakness, No Sensory Changes Psychological: No Symptoms, Hallucinations Endocrine: No Symptoms Hematologic/Lymphatic: No Symptoms Immunological/Allergic: No Symptoms Objective Exam General Appearance: no apparent distress, alert Neurologic Exam: alert, oriented x 3, cooperative, normal mood/affect, nml cerebellar function, sensation nml, motor weakness, No motor deficits Skin Exam: normal color, warm, dry, other (BLLE wrapped) Wound Assessment: Skin/Wound Assessment Wound/Incision Assessment Start: 01/18/24 18:05 Text: Status: Active Freq: Q6H Protocol: Document 01/23/24 10:00 LUIS (Rec: 01/23/24 10:30 LUIS [id number]) Wound/Incision Assessment Left Lower Calf Wound Assessment Shift Assessment Wound Type Stasis Ulcer Dressing Status Dry & Intact Drainage Amount None Comment Unna boot dressing remains intact. Right Lower Calf Wound Assessment Shift Assessment Wound Type Stasis Ulcer Dressing Status Dry & Intact Drainage Amount None Comment Unna Boot dressing remains intact. Left Great Toe Wound Assessment Shift Assessment Wound Type Amputation Comment Unna Boot dressing intact. Wound Photo Photo Taken No Eye Exam: PERRL, EOMI, eyes nml inspection Ears, Nose, Throat Exam: normal ENT inspection, pharynx normal, moist mucous membranes Neck Exam: normal inspection, non-tender, supple, full range of motion Respiratory Exam: normal breath sounds, lungs clear, No respiratory distress Cardiovascular Exam: regular rate/rhythm, normal heart sounds Gastrointestinal/Abdomen Exam: soft, No tenderness, No mass Extremity Exam: normal inspection, normal range of motion Back Exam: normal inspection, normal range of motion, No CVA tenderness, No vertebral tenderness Male Genitalia Exam: deferred Rectal Exam: deferred Objective Data Vital Signs: Vital Signs - 24 hr Temp Pulse Resp BP Pulse Ox 01/23/24 12:00 98.1 F 90 18 133/66 95 01/23/24 08:00 97.6 F 88 16 134/68 96 01/23/24 03:18 98.1 F 95 H 23 115/67 92 L 01/22/24 23:34 97.8 F 102 H 18 117/69 94 L 01/22/24 20:00 98.5 F 90 18 142/72 97 01/22/24 16:00 97.4 F 93 H 18 113/52 94 L Pain Assessment - Last Documented Pain Intensity 3 Intake and Output: Intake & Output 01/21/24 01/22/24 01/23/24 01/24/24 11:59 11:59 11:59 11:59 Intake Total 2021 1689 2154 Output Total 1350 1775 400 Balance 672 -85 1754 Weight 87 kg Lab Results: Lab Results-Last 24 Hours 01/22/24 01/22/24 01/23/24 Range/Units 16:24 20:42 06:30 WBC 3.2 L (4.23-9.07) x10^3/uL RBC 2.62 L (4.63-6.08) x10^6/uL Hgb 7.2 L (13.7-17.5) g/dL Hct 23.0 L (40.1-51.0) % MCV 87.8 (79.0-92.2) fL MCH 27.5 (25.7-32.2) pg MCHC 31.3 L (32.3-36.5) g/dL RDW 18.5 H (11.6-14.4) % Plt Count 120 L (163-337) x10^3/uL MPV 10.5 (9.4-12.4) fL Sodium (135-145) mmol/L Potassium (3.5-5.1) mmol/L Chloride (98-107) mmol/L Carbon Dioxide (22-30) mmol/L Anion Gap (5-15) MEQ/L BUN (9-20) mg/dL Creatinine (0.66-1.25) mg/dL Estimated GFR ML/MIN Glucose (74-106) mg/dL POC Glucometer 167 H 94 (74 to 106) mg/dL Calcium (8.4-10.2) mg/dL Total Bilirubin (0.2-1.3) mg/dL AST (17-59) U/L ALT (0-50) U/L Alkaline Phosphatase (38-126) U/L Serum Total Protein (6.3-8.2) g/dL Albumin (3.5-5.0) g/dL 01/23/24 01/23/24 01/23/24 Range/Units 06:30 07:09 08:04 WBC (4.23-9.07) x10^3/uL RBC (4.63-6.08) x10^6/uL Hgb (13.7-17.5) g/dL Hct (40.1-51.0) % MCV (79.0-92.2) fL MCH (25.7-32.2) pg MCHC (32.3-36.5) g/dL RDW (11.6-14.4) % Plt Count (163-337) x10^3/uL MPV (9.4-12.4) fL Sodium 138 (135-145) mmol/L Potassium 4.1 (3.5-5.1) mmol/L Chloride 107 (98-107) mmol/L Carbon Dioxide 25 (22-30) mmol/L Anion Gap 10.0 (5-15) MEQ/L BUN 24 H (9-20) mg/dL Creatinine 2.03 H (0.66-1.25) mg/dL Estimated GFR 31.2 ML/MIN Glucose 73 L (74-106) mg/dL POC Glucometer 67 L 92 (74 to 106) mg/dL Calcium 8.2 L (8.4-10.2) mg/dL Total Bilirubin 0.50 (0.2-1.3) mg/dL AST 21 (17-59) U/L ALT 14 (0-50) U/L Alkaline Phosphatase 50 (38-126) U/L Serum Total Protein 5.5 L (6.3-8.2) g/dL Albumin 2.6 L (3.5-5.0) g/dL 01/23/24 01/23/24 Range/Units 11:18 12:00 WBC (4.23-9.07) x10^3/uL RBC (4.63-6.08) x10^6/uL Hgb 7.7 L (13.7-17.5) g/dL Hct 24.3 L (40.1-51.0) % MCV (79.0-92.2) fL MCH (25.7-32.2) pg MCHC (32.3-36.5) g/dL RDW (11.6-14.4) % Plt Count (163-337) x10^3/uL MPV (9.4-12.4) fL Sodium (135-145) mmol/L Potassium (3.5-5.1) mmol/L Chloride (98-107) mmol/L Carbon Dioxide (22-30) mmol/L Anion Gap (5-15) MEQ/L BUN (9-20) mg/dL Creatinine (0.66-1.25) mg/dL Estimated GFR ML/MIN Glucose (74-106) mg/dL POC Glucometer 148 H (74 to 106) mg/dL Calcium (8.4-10.2) mg/dL Total Bilirubin (0.2-1.3) mg/dL AST (17-59) U/L ALT (0-50) U/L Alkaline Phosphatase (38-126) U/L Serum Total Protein (6.3-8.2) g/dL Albumin (3.5-5.0) g/dL Assessment/Plan (1) CHF (congestive heart failure) Current Visit: Yes Status: Acute Qualifiers: Heart failure chronicity: acute Code(s): I50.9 - HEART FAILURE, UNSPECIFIED (2) Acute on chronic renal failure Current Visit: Yes Status: Acute Code(s): N17.9 - ACUTE KIDNEY FAILURE, UNSPECIFIED; N18.9 - CHRONIC KIDNEY DISEASE, UNSPECIFIED (3) Open wound of both legs with complication Current Visit: Yes Status: Acute Code(s): S81.801A - UNSPECIFIED OPEN WOUND, RIGHT LOWER LEG, INITIAL ENCOUNTER; S81.802A - UNSPECIFIED OPEN WOUND, LEFT LOWER LEG, INITIAL ENCOUNTER (4) Cellulitis Current Visit: Yes Status: Acute Qualifiers: Site of cellulitis: extremity Site of cellulitis of extremity: lower extremity Code(s): L03.90 - CELLULITIS, UNSPECIFIED (5) Confusion Current Visit: Yes Status: Acute Code(s): R41.0 - DISORIENTATION, UNSPECIFIED (6) Hallucination Current Visit: Yes Status: Acute Code(s): R44.3 - HALLUCINATIONS, UNSPECIFIED (7) Thrombocytopenia Current Visit: Yes Status: Acute (8) Diabetes type 2, controlled Current Visit: No Status: Chronic Qualifiers: Code(s): E11.9 - TYPE 2 DIABETES MELLITUS WITHOUT COMPLICATIONS (9) Hypothyroidism Current Visit: Yes Status: Chronic Code(s): E03.9 - HYPOTHYROIDISM, UNSPECIFIED (10) Weakness Current Visit: Yes Status: Acute Code(s): R53.1 - WEAKNESS (11) BPH (benign prostatic hyperplasia) Current Visit: Yes Status: Chronic Code(s): N40.0 - BENIGN PROSTATIC HYPERPLASIA WITHOUT LOWER URINRY TRACT SYMP (12) Metabolic acidosis Current Visit: Yes Status: Acute Code(s): E87.20 - ACIDOSIS, UNSPECIFIED (13) Amputated toe of left foot Current Visit: Yes Status: Acute Code(s): S98.132A - COMPLETE TRAUMATIC AMPUTATION OF ONE LEFT LESSER TOE, INIT (14) Osteomyelitis of toe of left foot Current Visit: Yes Status: Acute Code(s): M86.9 - OSTEOMYELITIS, UNSPECIFIED (15) Hypokalemia Current Visit: Yes Status: Acute Assessment & Plan: (1) CHF (congestive heart failure) Current Visit: Yes Status: Acute Qualifiers: Heart failure chronicity: acute Assessment & Plan: - CXR reviewed - Lasix IV gave in ER - I&O's - Trop negative- trend - tele - BNP [id number] - CXR shows pulm edema - Echo 07/19/23- EF 15-20% IMPRESSION: 1. SEVERE LEFT VENTRICULAR SYSTOLIC DYSFUNCTION. 2. SEVERE ASSYMMETRIC LEFT VENTRICULAR HYPERTROPHY INVOLVING THE INTERVEN TRICULAR SEPTUM. 3. BORDERLINE LEFT ATRIAL DILATATION. 4. MILD TRICUSPID REGURGITATION. 5. MILD MITRAL REGURGITATION. 6. NORMAL RIGHT VENTRICULAR SYSTOLIC PRESSURE. 01/18 -CMP reviewed - Continue Lasix 60mg PO BID- home dose 01/18 - Lungs clear - RA 95% - improved - consider repeat CXR 01/20 - hold lasix d/t STEPHANY - remains at room air 99% 01/21 - hold lasix Code(s): I50.9 - HEART FAILURE, UNSPECIFIED (2) Acute on chronic renal failure Current Visit: Yes Status: Acute Assessment & Plan: - Creat 1.91, baseline 1.75- trend - Anion gap 17.2 - Encouraged oral intake d/t fluid restrictions at hospital. 01/18 - Creat 1.85- near baseline - CMP reviewed - Continue Lasix 60mg PO BID- home dose 01/19 - Creat 2.09- trend 01/20 - creat 2.11- hold lasix today- trend 01/21 - Creat 2.13 - hold Lasix and Metolazone - NS @ 50 ml x1 500ml bag 01/22 - Creat 2.03- improved- trend Code(s): N17.9 - ACUTE KIDNEY FAILURE, UNSPECIFIED; N18.9 - CHRONIC KIDNEY DISEASE, UNSPECIFIED (3) Open wound of both legs with complication Current Visit: Yes Status: Acute Assessment & Plan: - IV antibiotics Linezoid and Zosyn - podiatry consult - Wound cultures from 01/13 show Pseudomonas BLLE - repeat wound cultures completed in ER. - BC x2 - per daughter + green drainage this past weekend and then confusion started. - XR BLLE reviewed- negative for osteomyelitis - CBC reviewed daily 01/19 - XR and MRI of left foot ordered- possible amputation today with podiatry - reviewed podiatry note and agree with plan of care. - more wound cultures completed by podiatry of left foot 01/20 - MRI and XR of Left foot reviewed -POD# 1 toe amputation with podiatry - Left lower medial wound + for pseudomonas - Right lateral gram negative sensitivity pending - left greater big toe - gram negative sensitivity pending. - Consider stopping Zyvox after results complete - Continue Zosyn and Zyvox for now 01/21 -Toe culture pending - Continue Zosyn and Zyvox for now - CBC, CMP reviewed 01/22 - Plan is for podiatry to close left foot Wednesday - Left greater toe culture + proteus mirabilis, Citrobactor Freundii, MRSA - Continue Zosyn and Zyvox Code(s): S81.801A - UNSPECIFIED OPEN WOUND, RIGHT LOWER LEG, INITIAL ENCOUNTER; S81.802A - UNSPECIFIED OPEN WOUND, LEFT LOWER LEG, INITIAL ENCOUNTER (4) Cellulitis Current Visit: Yes Status: Acute Qualifiers: Site of cellulitis: extremity Site of cellulitis of extremity: lower extremity Assessment & Plan: - BLLE - Doxycycline IV started in ER, - IV antibiotics Linezoid and Zosyn started IIP - podiatry consult - Wound cultures from 01/13 show Pseudomonas BLLE - repeat wound cultures completed in ER. - per daughter + green drainage this past weekend and then confusion started. 01/19 - Wound cultures x2 gram negative- sensitivity pending - Continue IV antibiotics - BLLE wrapped by podiatry 01/20 - Wound cultures BLLE + for Pseudomonas and citrobacter - Continue IV antibiotics Code(s): L03.90 - CELLULITIS, UNSPECIFIED (5) Confusion Current Visit: Yes Status: Acute Assessment & Plan: - CXR and CT head reviewed. - CBC and CMP reviewed. - Daughter reports pt has increased confusion with infections 01/18 - continued confusion 01/19 - resolved Code(s): R41.0 - DISORIENTATION, UNSPECIFIED (6) Hallucination Current Visit: Yes Status: Acute Assessment & Plan: - CT head negative for acute concern - Monitor 01/18 - denies hallucinations 01/19 - resolved 01/21 - + hallucinations today 01/22 - + hallucinations today Code(s): R44.3 - HALLUCINATIONS, UNSPECIFIED (7) Thrombocytopenia Current Visit: Yes Status: Acute Assessment & Plan: - Platelets 127- trend - Daughter does not want further workup for this or referral OP to oncology/heamtology. 01/18 - Plt 113- trend 01/19 - PLT 111- trend 01/20 - Plt 129- improved- trend 01/21 - PLT 126- trend 01/22 - Plt 120 (8) Diabetes type 2, controlled Current Visit: No Status: Chronic Qualifiers: Assessment & Plan: - 11/30/23 A1C 7.64 - Controlled - Continue accuchecks ac/hs, humalog and lantus dosing - Carb consistent diet 01/21 - Glucose dropped to 54 last night - Changed Lantus from HS to QAM - Hypoglycemia protocol added - Continue to monitor accuchecks Code(s): E11.9 - TYPE 2 DIABETES MELLITUS WITHOUT COMPLICATIONS (9) Hypothyroidism Current Visit: Yes Status: Chronic Assessment & Plan: - Continue synthroid - 11/30/23 TSH 3.9- WNL Code(s): E03.9 - HYPOTHYROIDISM, UNSPECIFIED (10) Weakness Current Visit: Yes Status: Acute Assessment & Plan: - Per daughter, pt was up and walking with a cane in October - Lives in ECF - PT/OT eval and treat - Continued weakness Code(s): R53.1 - WEAKNESS (11) BPH (benign prostatic hyperplasia) Current Visit: Yes Status: Chronic Assessment & Plan: - Continue Flomax Code(s): N40.0 - BENIGN PROSTATIC HYPERPLASIA WITHOUT LOWER URINRY TRACT SYMP Code(s): N40.0 - BENIGN PROSTATIC HYPERPLASIA WITHOUT LOWER URINRY TRACT SYMP (12) Metabolic acidosis Current Visit: Yes Status: Acute Assessment & Plan: - CO2 16 - started oral sodium bicarb 01/19 - oral sodium bicarb stopped - Co2 - resolved Code(s): E87.20 - ACIDOSIS, UNSPECIFIED Code(s): E87.20 - ACIDOSIS, UNSPECIFIED (13) Amputated toe of left foot Current Visit: Yes Status: Acute Assessment & Plan: - POD #1 of left foot big toe amputation with podiatry - BLLE wrapped - LLE elevated - IV antibiotics - Repeat dressing changes all day by nursing d/t heavy bleeding- Hgb checked in the afternoon and stable, Blood thinner stopper, podiatry notified by nursing. 01/21 - No overnight bleeding - Blood thinner restarted - Hgb 7.9- rechecked at noon and 8.2 - dressing changes by nursing per podiatry recs 01/22 - No overnight bleeding - Hgb 7.2 this AM, H&H Q6 Code(s): S98.132A - COMPLETE TRAUMATIC AMPUTATION OF ONE LEFT LESSER TOE, INIT (14) Osteomyelitis of toe of left foot Current Visit: Yes Status: Acute Assessment & Plan: - as seen on MRI 01/20/24 - ordered by podiatry - see post op amputation plan above Code(s): M86.9 - OSTEOMYELITIS, UNSPECIFIED (15) Hypokalemia Current Visit: Yes Status: Acute Assessment & Plan: - K+ 3.4- replaced- trend- repeat lab 4.8 01/21 - K+ 4.4- resolved Code(s): E87.6 - HYPOKALEMIA Code(s): E87.6 - HYPOKALEMIA (16) Pancytopenia Current Visit: Yes Status: Chronic Assessment & Plan: - Chronic per daughter - trend labs - Consider OP f/u with hematology VTE: Xarelto PPI: Protonix Next of KIN: daughter D/C plan: per podiatry recs Code status: SCO/DNR Code(s): D61.818 - OTHER PANCYTOPENIA
[2024-01-23 17:02] LABS: Hematocrit 26.3 % (40.1-51.0); Hemoglobin 8.1 g/dL (13.7-17.5)
[2024-01-24 02:25] LABS: Hematocrit 24.5 % (40.1-51.0); Hemoglobin 7.5 g/dL (13.7-17.5); Mean Cell Volume 90.7 fL (79.0-92.2); Mean Corpuscular Hemoglobin 27.8 pg (25.7-32.2); Mean Corpuscular Hgb Concent. 30.6 g/dL (32.3-36.5); Mean Platelet Volume 8.9 fL (9.4-12.4); Platelet Count 108 x10^3/uL (163-337); Red Cell Distribution Width 18.7 % (11.6-14.4); White Blood Count 3.3 x10^3/uL (4.23-9.07)
[2024-01-24 02:43] LABS: ALBUMIN 2.9 g/dL (3.5-5.0); ANION GAP 10.7 MEQ/L (5-15); BILIRUBIN,TOTAL 0.5 mg/dL (0.2-1.3); Calcium 8.5 mg/dL (8.4-10.2); Creatinine 1 1.97 mg/dL (0.66-1.25); EST GLOMERULAR FILTRATION RATE 32.3 ML/MIN; Potassium 4.9 mmol/L (3.5-5.1)
--- NOTE | 2024-01-24 05:53 | PCM.NOTE ---
Date and Time: 01/24/24 0548 Subjective Assessment: is a 88 year old male with PMHX of CVA 2006, CHF, hyperlipidemia, HTN, OR, Type II DM, OA, CKD, and CAD. Pt presented to ED 01/18/24 via EMS from the [facility] for evaluation of abnormal labs, possible lower extremity infection confusion and hallucination. Patient states he sees little girls floating but he knows they are not real. Patient is cognizant and aware of the hallucinations. Daughter states he developed green drainage from BLLE01/14/24. He then became confused the next day. She reports he often has confusion with extreme infections. Wound cultures done 01/14/24 at [facility] show pseudomas for BLLE. He had not been on any antibiotics until today. Repeat wound cultures completed in ER. BC [id number]. Pt started on IV antibiotics and changed to broad spectrum antibiotics IP. Podiatry consulted and XR's of BLLE ordered. IV lasix gave in ER for CHF exacerbation as seen on CXR. Per pt's daughter pt had an angiogram on and needs further surgery of LLE for better blood flow. This is to be done per Orth[facility] Mechanic Dr. Perez. Pt follows Dr. Huggins for nephrology. Daughter would also like pt to work with PT/OT a while here as pt was up and walking with a cane in October. Podiatry consulted and open amputation great toe possible first metatarsal partial amputation left foot performed 01/19. Culture from toe wound shows MRSA. Continue Zosyn and Zyvox. Plan is to close wound on Wednesday, then home on possibly Wednesday. 01/24/24: Met and examined patient bedside. States he is feeling better although he is having some pain at left foot surgical site. Blood glucose level was low this morning. Will place on low SSI/ dc humalog/meal insulin with close monitoring. Creat is improving. Plan for wound closure tomorrow and possible discharge Wednesday to [place] with abx. Denies fever,cough, sob, cp, abdominal pain, MCKEON, dizziness, N/V/D. - Review of Systems Constitutional: Fatigue, Weakness Eyes: No Symptoms Ears, Nose, & Throat: No Symptoms Respiratory: No Symptoms Cardiac: No Symptoms Abdominal/Gastrointestinal: No Symptoms Genitourinary Symptoms: No Symptoms Musculoskeletal: Joint Pain (Left foot at surgical site) Skin: No Symptoms Neurological: No Symptoms Psychological: No Symptoms Endocrine: No Symptoms Hematologic/Lymphatic: No Symptoms Immunological/Allergic: No Symptoms Objective Exam General Appearance: no apparent distress Neurologic Exam: alert, oriented x 3, cooperative Skin Exam: normal color Wound Assessment: Skin/Wound Assessment Wound/Incision Assessment Start: 01/18/24 18:05 Text: Status: Active Freq: Q6H Protocol: Document 01/24/24 04:00 LB (Rec: 01/24/24 04:27 LB [id number]) Wound/Incision Assessment Left Lower Calf Wound Assessment Shift Assessment Wound Type Stasis Ulcer Dressing Status Dry & Intact Drainage Amount None Comment Unna boot dressing remains intact. Right Lower Calf Wound Assessment Shift Assessment Wound Type Stasis Ulcer Dressing Status Dry & Intact Drainage Amount None Comment Unna Boot dressing remains intact. Left Great Toe Wound Assessment Shift Assessment Wound Type Amputation Comment Unna Boot dressing intact. Wound Photo Photo Taken No Eye Exam: PERRL Ears, Nose, Throat Exam: normal ENT inspection Neck Exam: normal inspection Respiratory Exam: normal breath sounds, lungs clear Cardiovascular Exam: regular rate/rhythm, normal heart sounds Gastrointestinal/Abdomen Exam: soft, normal bowel sounds Extremity Exam: other (Left foot with surgical dressing CDI) Back Exam: normal inspection Male Genitalia Exam: deferred Rectal Exam: deferred Objective Data Vital Signs: Vital Signs - 24 hr Temp Pulse Resp BP Pulse Ox 01/24/24 04:00 96.7 F 90 18 129/64 98 01/24/24 00:00 92 H 17 134/71 94 L 01/23/24 20:00 98.2 F 91 H 18 132/76 94 L 01/23/24 16:00 98.0 F 91 H 18 136/70 94 L 01/23/24 12:00 98.1 F 90 18 133/66 95 01/23/24 08:00 97.6 F 88 16 134/68 96 Pain Assessment - Last Documented Pain Intensity 0 Intake and Output: Intake & Output 01/21/24 01/22/24 01/23/24 01/24/24 11:59 11:59 11:59 11:59 Intake Total 2021 1690 2154 3118 Output Total 1350 1775 400 550 Balance 672 -85 1754 2568 Weight 87 kg Lab Results: Lab Results-Last 24 Hours 01/23/24 01/23/24 01/23/24 Range/Units 06:30 06:30 07:09 WBC 3.2 L (4.23-9.07) x10^3/uL RBC 2.62 L (4.63-6.08) x10^6/uL Hgb 7.2 L (13.7-17.5) g/dL Hct 23.0 L (40.1-51.0) % MCV 87.8 (79.0-92.2) fL MCH 27.5 (25.7-32.2) pg MCHC 31.3 L (32.3-36.5) g/dL RDW 18.5 H (11.6-14.4) % Plt Count 120 L (163-337) x10^3/uL MPV 10.5 (9.4-12.4) fL Sodium 138 (135-145) mmol/L Potassium 4.1 (3.5-5.1) mmol/L Chloride 107 (98-107) mmol/L Carbon Dioxide 25 (22-30) mmol/L Anion Gap 10.0 (5-15) MEQ/L BUN 24 H (9-20) mg/dL Creatinine 2.03 H (0.66-1.25) mg/dL Estimated GFR 31.2 ML/MIN Glucose 73 L (74-106) mg/dL POC Glucometer 67 L (74 to 106) mg/dL Calcium 8.2 L (8.4-10.2) mg/dL Total Bilirubin 0.50 (0.2-1.3) mg/dL AST 21 (17-59) U/L ALT 14 (0-50) U/L Alkaline Phosphatase 50 (38-126) U/L Serum Total Protein 5.5 L (6.3-8.2) g/dL Albumin 2.6 L (3.5-5.0) g/dL 01/23/24 01/23/24 01/23/24 Range/Units 08:04 11:18 12:00 WBC (4.23-9.07) x10^3/uL RBC (4.63-6.08) x10^6/uL Hgb 7.7 L (13.7-17.5) g/dL Hct 24.3 L (40.1-51.0) % MCV (79.0-92.2) fL MCH (25.7-32.2) pg MCHC (32.3-36.5) g/dL RDW (11.6-14.4) % Plt Count (163-337) x10^3/uL MPV (9.4-12.4) fL Sodium (135-145) mmol/L Potassium (3.5-5.1) mmol/L Chloride (98-107) mmol/L Carbon Dioxide (22-30) mmol/L Anion Gap (5-15) MEQ/L BUN (9-20) mg/dL Creatinine (0.66-1.25) mg/dL Estimated GFR ML/MIN Glucose (74-106) mg/dL POC Glucometer 92 148 H (74 to 106) mg/dL Calcium (8.4-10.2) mg/dL Total Bilirubin (0.2-1.3) mg/dL AST (17-59) U/L ALT (0-50) U/L Alkaline Phosphatase (38-126) U/L Serum Total Protein (6.3-8.2) g/dL Albumin (3.5-5.0) g/dL 01/23/24 01/23/24 01/23/24 Range/Units 16:27 16:34 16:50 WBC (4.23-9.07) x10^3/uL RBC (4.63-6.08) x10^6/uL Hgb 8.1 L (13.7-17.5) g/dL Hct 26.3 L (40.1-51.0) % MCV (79.0-92.2) fL MCH (25.7-32.2) pg MCHC (32.3-36.5) g/dL RDW (11.6-14.4) % Plt Count (163-337) x10^3/uL MPV (9.4-12.4) fL Sodium (135-145) mmol/L Potassium (3.5-5.1) mmol/L Chloride (98-107) mmol/L Carbon Dioxide (22-30) mmol/L Anion Gap (5-15) MEQ/L BUN (9-20) mg/dL Creatinine (0.66-1.25) mg/dL Estimated GFR ML/MIN Glucose (74-106) mg/dL POC Glucometer 41 L* 46 L* (74 to 106) mg/dL Calcium (8.4-10.2) mg/dL Total Bilirubin (0.2-1.3) mg/dL AST (17-59) U/L ALT (0-50) U/L Alkaline Phosphatase (38-126) U/L Serum Total Protein (6.3-8.2) g/dL Albumin (3.5-5.0) g/dL 01/23/24 01/23/24 01/23/24 Range/Units 16:50 17:54 20:46 WBC (4.23-9.07) x10^3/uL RBC (4.63-6.08) x10^6/uL Hgb (13.7-17.5) g/dL Hct (40.1-51.0) % MCV (79.0-92.2) fL MCH (25.7-32.2) pg MCHC (32.3-36.5) g/dL RDW (11.6-14.4) % Plt Count (163-337) x10^3/uL MPV (9.4-12.4) fL Sodium (135-145) mmol/L Potassium (3.5-5.1) mmol/L Chloride (98-107) mmol/L Carbon Dioxide (22-30) mmol/L Anion Gap (5-15) MEQ/L BUN (9-20) mg/dL Creatinine (0.66-1.25) mg/dL Estimated GFR ML/MIN Glucose 52 L (74-106) mg/dL POC Glucometer 93 90 (74 to 106) mg/dL Calcium (8.4-10.2) mg/dL Total Bilirubin (0.2-1.3) mg/dL AST (17-59) U/L ALT (0-50) U/L Alkaline Phosphatase (38-126) U/L Serum Total Protein (6.3-8.2) g/dL Albumin (3.5-5.0) g/dL 01/24/24 01/24/24 Range/Units 02:23 02:23 WBC 3.3 L (4.23-9.07) x10^3/uL RBC 2.70 L (4.63-6.08) x10^6/uL Hgb 7.5 L (13.7-17.5) g/dL Hct 24.5 L (40.1-51.0) % MCV 90.7 (79.0-92.2) fL MCH 27.8 (25.7-32.2) pg MCHC 30.6 L (32.3-36.5) g/dL RDW 18.7 H (11.6-14.4) % Plt Count 108 L (163-337) x10^3/uL MPV 8.9 L (9.4-12.4) fL Sodium 138 (135-145) mmol/L Potassium 4.9 (3.5-5.1) mmol/L Chloride 107 (98-107) mmol/L Carbon Dioxide 25 (22-30) mmol/L Anion Gap 10.7 (5-15) MEQ/L BUN 22 H (9-20) mg/dL Creatinine 1.97 H (0.66-1.25) mg/dL Estimated GFR 32.3 ML/MIN Glucose 86 (74-106) mg/dL POC Glucometer (74 to 106) mg/dL Calcium 8.5 (8.4-10.2) mg/dL Total Bilirubin 0.50 (0.2-1.3) mg/dL AST 26 (17-59) U/L ALT 16 (0-50) U/L Alkaline Phosphatase 52 (38-126) U/L Serum Total Protein 6.0 L (6.3-8.2) g/dL Albumin 2.9 L (3.5-5.0) g/dL Assessment/Plan (1) Open wound of both legs with complication Current Visit: Yes Status: Acute Assessment & Plan: - IV antibiotics Linezoid and Zosyn - podiatry consult - Wound cultures from 01/13 show Pseudomonas BLLE - BC x2- negative - XR BLLE reviewed- negative for osteomyelitis - reviewed podiatry note and agree with plan of care. -open amputation great toe possible first metatarsal partial amputation left foot performed 01/19- Left lower medial wound + for pseudomonas - Right lateral gram negative sensitivity pending - Plan is for podiatry to close left foot Wednesday - possible dc Wednesday - Left greater toe culture + proteus mirabilis, Citrobactor Freundii, MRSA - Continue Zosyn and Zyvox Code(s): S81.801A - UNSPECIFIED OPEN WOUND, RIGHT LOWER LEG, INITIAL ENCOUNTER; S81.802A - UNSPECIFIED OPEN WOUND, LEFT LOWER LEG, INITIAL ENCOUNTER (2) Cellulitis Current Visit: Yes Status: Acute Qualifiers: Site of cellulitis: extremity Site of cellulitis of extremity: lower extremity Assessment & Plan: - BLLE - Doxycycline IV started in ER - IV antibiotics Linezoid and Zosyn started IIP - podiatry consult - reviewed note - agree with plan - Wound cultures from 01/13 show Pseudomonas BLLE - repeat wound cultures completed in ER. - Wound cultures BLLE + for Pseudomonas and citrobacter - Continue Zosyn/Zyvox Code(s): L03.90 - CELLULITIS, UNSPECIFIED (3) Amputated toe of left foot Current Visit: Yes Status: Acute Assessment & Plan: - open amputation great toe possible first metatarsal partial amputation left foot performed 01/19 - BLLE wrapped - LLE elevated - IV antibiotics zyvox/zosyn -Dressing CDI - Blood thinner restarted 01/21 Code(s): S98.132A - COMPLETE TRAUMATIC AMPUTATION OF ONE LEFT LESSER TOE, INIT (4) Hypothyroid Current Visit: Yes Status: Acute Assessment & Plan: - Continue synthroid - 11/30/23 TSH reviewed at 3.9- WNL Code(s): E03.9 - HYPOTHYROIDISM, UNSPECIFIED (5) Weakness Current Visit: Yes Status: Acute Assessment & Plan: - Per daughter, pt was up and walking with a cane in October - Lives in ECF - PT/OT eval and treat Code(s): R53.1 - WEAKNESS (6) BPH (benign prostatic hyperplasia) Current Visit: Yes Status: Acute Assessment & Plan: - Continue Flomax Code(s): N40.0 - BENIGN PROSTATIC HYPERPLASIA WITHOUT LOWER URINRY TRACT SYMP (7) Pancytopenia Current Visit: Yes Status: Acute Assessment & Plan: - Chronic per daughter - trend labs - Consider OP f/u with hematology Code(s): D61.818 - OTHER PANCYTOPENIA (8) Confusion Current Visit: Yes Status: Acute Assessment & Plan: - CXR and CT head reviewed. - Daughter reports pt has increased confusion with infections - resolved Code(s): R41.0 - DISORIENTATION, UNSPECIFIED (9) Hallucination Current Visit: Yes Status: Acute Assessment & Plan: - CT head negative for acute concern -No hallucination voiced today Code(s): R44.3 - HALLUCINATIONS, UNSPECIFIED (10) Hypokalemia Current Visit: Yes Status: Acute Assessment & Plan: -resolved after replenishment -continue to monitor renal/lytes -tele Code(s): E87.6 - HYPOKALEMIA (11) Metabolic acidosis Current Visit: Yes Status: Acute Assessment & Plan: -treated with oral bicarb -discontinued - resolved Code(s): E87.20 - ACIDOSIS, UNSPECIFIED (12) Osteomyelitis of toe of left foot Current Visit: Yes Status: Acute Assessment & Plan: - as seen on MRI 01/20/24 - Podiatry following - see post op amputation plan above Code(s): M86.9 - OSTEOMYELITIS, UNSPECIFIED (13) Thrombocytopenia Current Visit: Yes Status: Acute Assessment & Plan: - Platelets - trend - Daughter does not want further workup for this or referral OP to oncology/hematology. (14) Acute on chronic renal failure Current Visit: No Status: Acute Qualifiers: Chronic kidney disease stage: stage 3 (moderate) Assessment & Plan: -baseline 1.75- trend -CMP reviewed - creat at 1.97<2.03 - Encouraged oral intake d/t fluid restrictions at hospital. - hold Lasix and Metolazone - NS @ 50 ml x1 500ml bag -01/21 Code(s): N17.9 - ACUTE KIDNEY FAILURE, UNSPECIFIED; N18.9 - CHRONIC KIDNEY DISEASE, UNSPECIFIED (15) CHF (congestive heart failure) Current Visit: No Status: Acute Assessment & Plan: - I&O's/Daily weights/elevated HOB - Trop negative x 3 - tele - BNP 29009 - CXR shows pulm edema - Echo 07/19/23- EF 15-20% IMPRESSION: 1. SEVERE LEFT VENTRICULAR SYSTOLIC DYSFUNCTION. 2. SEVERE ASSYMMETRIC LEFT VENTRICULAR HYPERTROPHY INVOLVING THE INTERVENTRICULAR SEPTUM. 3. BORDERLINE LEFT ATRIAL DILATATION. 4. MILD TRICUSPID REGURGITATION. 5. MILD MITRAL REGURGITATION. 6. NORMAL RIGHT VENTRICULAR SYSTOLIC PRESSURE. - Continue Lasix 60mg PO BID- home dose when STEPHANY resolves - remains at room air -baseline Code(s): I50.9 - HEART FAILURE, UNSPECIFIED (16) Diabetes type 2, controlled Current Visit: No Status: Chronic Qualifiers: Assessment & Plan: - Reviewed from 11/30/23 A1C 7.64 - Continue accuchecks ac/hs, humalog SSI - low dose due to hypoglycemic episodes - Carb consistent diet - Hypoglycemia protocol added - Continue to monitor accuchecks VTE: Xarelto PPI: Protonix Next of KIN: daughter D/C plan: per podiatry recs Code status: SCO/DNR Code(s): E11.9 - TYPE 2 DIABETES MELLITUS WITHOUT COMPLICATIONS
[2024-01-24] MEDS: D50W 50 ml Abboject IV PRN (08:15)
--- NOTE | 2024-01-24 09:18 | OP ---
SURGERY DATE/TIME: 01/20/2024 [id number] PREOPERATIVE DIAGNOSES: 1) Osteomyelitis, left hallux. 2) Diabetic peripheral neuropathy. 3) Diabetes mellitus. 4) Venous insufficiency. 5) Peripheral vascular disease. POSTOPERATIVE DIAGNOSES: 1) Osteomyelitis, left hallux. 2) Diabetic peripheral neuropathy. 3) Diabetes mellitus. 4) Venous insufficiency. 5) Peripheral vascular disease. PROCEDURE: 1) Amputation of hallux, left foot. 2) Bone debridement, first metatarsal with biopsy. SURGEON: Ferdinand Goss DPM STONE PLANER: Jagjit Naylor NP ANESTHESIA: Local. HEMOSTASIS: Pressure dressing. ESTIMATED BLOOD LOSS: Approximately 4 mL. MATERIALS: 3-0 nylon, 1/4-inch iodoform packing. INJECTABLES: 20 mL of a 1:1 mixture of 1% lidocaine plain and 0.5% bupivacaine plain injected in a Watkins block-type fashion to the left foot. INDICATIONS: The patient is a very pleasant 88-year-old male, very well-known to my service for multiple bouts of cellulitis to the bilateral lower extremity, amputation to the forefoot of the right lower extremity, as well as multiple wounds that have been dealt from a conservative standpoint. At this time, patient presented to the hospital with some degree of sepsis and some concern of cellulitis to the bilateral lower extremity, which patient was placed on IV antibiotics. Wound assessment was made and there were multiple wounds to the bilateral lower extremity for which I was consulted to his service. At this time, his daughter did show me some pictures of wounds and inspection of 1 image, did show that there was the capsule of the medial aspect of the distal interphalangeal joint of the left hallux exposed in one of the pictures. Debridement took place at bedside, demonstrating the exposed bone. X-ray was taken, demonstrating degenerative changes of the distal interphalangeal joint. Following this, an MRI was obtained, demonstrating some indications of osteomyelitis with uptake of the signal on T2 and drop out on T1, characteristic of osteomyelitis. From that standpoint, options were discussed with his daughter, who is the power of attorney at law, as well as the patient about options. Patient has been made aware of all risks, complications, and benefits of surgical intervention at this time including, but not limited to, infection, hematoma, seroma, possibility of delayed wound healing, non-wound healing, and possible need for further surgical intervention at a later date. No guarantees have been provided as to the outcome of surgical intervention at this time. It is of the utmost importance that we do get this patient to a vascular surgeon as quickly as possibly given the restriction of blood flow to the bilateral lower extremity, but more importantly, for wound healing to the left lower extremity. As a result, patient's power of attorney at law, as well as patient agree to proceeding with the amputation. It is at this time we decided to proceed. DESCRIPTION OF PROCEDURE AND FINDINGS: The patient was brought into the operating room and placed on the operating room table in the supine position. At this time, the left lower extremity was prepped and draped in the typical sterile fashion and lowered onto the surgical field. At this time, a Watkins block was performed utilizing 20 mL of a 1:1 mixture of 1% lidocaine plain and 0.5% bupivacaine plain injected in a Watkins block-type fashion in the left foot. Following a sufficient amount of time, the incision was made, performing a medial racket-type incision to the left hallux, disarticulating the distal interphalangeal joint where a significant amount of purulence was seen just utilizing the pickups at the distal aspect of the joint. The proximal phalanx demonstrated some significant necrosis and infection within the intramedullary cavity. Bone biopsies, soft tissue cultures and pathology was sent for pathological assessment at this time. Following this, the first metatarsal head was inspected. The cartilage was denuded centrally with a small core. The cartilage was then debrided from the metatarsal head and a bone biopsy was also taken from the metatarsal head to check for clean margins. Following this, 100 mL of Bactisure was then utilized to flush the surgical site, 3 L of sterile saline were then utilized to flush the surgical site. Following this, the skin margins were coapted utilizing a trauma suture to the medial aspect of the wound, leaving the central aspect open. A 1/4-inch iodoform packing was then packed into the wound deficit and then, a dressing consisting of Betadine, Adaptic, 4 x 4, Kerlix, ABD and Lino was applied to the patient's left lower extremity. Medihoney was also applied to the left leg fibrotic wound medially, secured with Adaptic, 4 x 4, Kerlix and Lino. Patient was then returned to the preoperative area with vital signs stable and vascular status intact. Patient handled the anesthesia, as well as the procedure without significant complication. Postoperative orders as indicated in the patient's discharge chart.
[2024-01-24 12:38] LABS: Hematocrit 24.6 % (40.1-51.0); Hemoglobin 7.8 g/dL (13.7-17.5)
[2024-01-24] MEDS: HUMALOG SQ PRN (22:01)
--- NOTE | 2024-01-25 05:15 | PCM.NOTE ---
Date and Time: 01/25/24 0512 Subjective Assessment: is a 88 year old male with PMHX of CVA 2006, CHF, hyperlipidemia, HTN, AL, Type II DM, OA, CKD, and CAD. Pt presented to ED 01/18/24 via EMS from the [facility] for evaluation of abnormal labs, possible lower extremity infection confusion and hallucination. Patient states he sees little girls floating but he knows they are not real. Patient is cognizant and aware of the hallucinations. Daughter states he developed green drainage from BLLE01/14/24. He then became confused the next day. She reports he often has confusion with extreme infections. Wound cultures done 01/14/24 at [facility] show pseudomas for BLLE. He had not been on any antibiotics until today. Repeat wound cultures completed in ER. BC [id number]. Pt started on IV antibiotics and changed to broad spectrum antibiotics IP. Podiatry consulted and XR's of BLLE ordered. IV lasix gave in ER for CHF exacerbation as seen on CXR. Per pt's daughter pt had an angiogram on and needs further surgery of LLE for better blood flow. This is to be done per [employer] Dr. Perez. Pt follows Dr. Huggins for nephrology. Daughter would also like pt to work with PT/OT a while here as pt was up and walking with a cane in October. Podiatry consulted and open amputation great toe possible first metatarsal partial amputation left foot performed 01/19. Culture from toe wound shows MRSA. Continue Zosyn and Zyvox. Plan is to close wound on Wednesday, then home on possibly Wednesday on oral zyvox and IV cefepime. 01/24/24: Met and examined patient bedside. States he is feeling better although he is having some pain at left foot surgical site. Blood glucose level was low this morning. Will place on low SSI/ dc humalog/meal insulin with close monitoring. Creat is improving. Plan for wound closure tomorrow and possible discharge Wednesday to [place] with abx. Denies fever,cough, sob, cp, abdominal pain, MCKEON, dizziness, N/V/D. 01/24: Met with patient bedside. He is somewhat drowsy s/p closure of surgical wound today. No complaints of pain. Plan is for discharge tomorrow to [facility] with IV cefepime and oral zyvox with podiatry following as OP. PICC placed. - Review of Systems Constitutional: Lethargy Eyes: No Symptoms Ears, Nose, & Throat: No Symptoms Respiratory: No Symptoms Cardiac: No Symptoms Abdominal/Gastrointestinal: No Symptoms Genitourinary Symptoms: No Symptoms Musculoskeletal: No Symptoms Skin: Other (surgical wound to the left foot, covered in dressing ) Neurological: No Symptoms Psychological: No Symptoms Endocrine: No Symptoms Hematologic/Lymphatic: No Symptoms Immunological/Allergic: No Symptoms Objective Exam General Appearance: no apparent distress Neurologic Exam: alert, oriented x 3, other (drowsy s/p surgery) Skin Exam: normal color Wound Assessment: Skin/Wound Assessment Wound/Incision Assessment Start: 01/18/24 18:05 Text: Status: Active Freq: Q6H Protocol: Document 01/25/24 02:00 GERARDO (Rec: 01/25/24 03:04 GERARDO [id number]) Wound/Incision Assessment Left Lower Calf Wound Assessment Shift Assessment Wound Type UNABLE TO ASSESS Wound Stage Non Pressure Wound Dressing Status Dry & Intact Drainage Amount None Primary Dressing UNNABOOT Right Lower Calf Wound Assessment Shift Assessment Wound Type UNABLE TO ASSESS Wound Stage Non Pressure Wound Dressing Status Dry & Intact Drainage Amount None Primary Dressing UNNABOOT Left Great Toe Wound Assessment Shift Assessment Wound Type UNABLE TO ASSESS Wound Stage Non Pressure Wound Dressing Status Dry & Intact Drainage Amount None Primary Dressing UNNABOOT Bilateral Buttocks Wound Assessment Shift Assessment Wound Type SHEARING Wound Stage Non Pressure Wound Drainage Amount None General Appearance Reddened Secondary Dressing mepilex Comment B[employer] AP[employer] Eye Exam: PERRL Ears, Nose, Throat Exam: normal ENT inspection Neck Exam: normal inspection Respiratory Exam: normal breath sounds, lungs clear Cardiovascular Exam: regular rate/rhythm, normal heart sounds Gastrointestinal/Abdomen Exam: soft, normal bowel sounds Extremity Exam: other (LLE with surgical dressing) Back Exam: normal inspection Male Genitalia Exam: deferred Rectal Exam: deferred Objective Data Vital Signs: Vital Signs - 24 hr Temp Pulse Resp BP Pulse Ox 01/25/24 00:00 97.5 F 94 H 16 133/71 92 L 01/24/24 20:00 97.7 F 99 H 18 141/71 91 L 01/24/24 16:00 97.9 F 96 H 16 134/71 95 01/24/24 11:15 97.9 F 90 16 130/78 95 01/24/24 07:32 97.9 F 90 16 122/65 95 Pain Assessment - Last Documented Pain Intensity 0 Intake and Output: Intake & Output 01/22/24 01/23/24 01/24/24 01/25/24 11:59 11:59 11:59 11:59 Intake Total 1690 2154 3698 1004 Output Total 1775 400 550 Balance -85 1754 3148 1004 Weight 87 kg Lab Results: Lab Results-Last 24 Hours 01/24/24 01/24/24 01/24/24 Range/Units 07:42 08:00 09:10 Hgb (13.7-17.5) g/dL Hct (40.1-51.0) % POC Glucometer 40 L* 48 L* 107 H (50 to 500) mg/dL 01/24/24 01/24/24 01/24/24 Range/Units 11:41 12:36 16:31 Hgb 7.8 L (13.7-17.5) g/dL Hct 24.6 L (40.1-51.0) % POC Glucometer 124 H 150 H (50 to 500) mg/dL 01/24/24 Range/Units 21:59 Hgb (13.7-17.5) g/dL Hct (40.1-51.0) % POC Glucometer 210 H (50 to 500) mg/dL Multi-Disciplinary Progress Notes: Multi-Disciplinary Progress Notes 01/24/24 14:16 Case Management Note by Bettie Che S/Gregory COLMENARES NP FROM DR. ARREGUIN'S OFFICE- HE STATED PATIENT WILL NEED IV ANTIBIOTICS FOR LIKELY 6-8 WEEKS. PATIENT TO HAVE PICC LINE PLACED. ORDER ENTERED AND PRIMARY RN NOTIFIED. WILL PLAN TO DO PO ZYVOX AT DC AND CEFIPIME 1 GM IV BID AT DC Initialized on 01/24/24 14:16 - END OF NOTE 01/24/24 14:14 Case Management Note by Bettie Che S/Gregory PATIENT- HE CONTINUES TO PLAN TO GO BACK TO [facility] FOR CONT'D R EHAB AT TIME OF DC Initialized on 01/24/24 14:14 - END OF NOTE 01/24/24 07:33 Pharmacy Note by Brad Whitney Today is day 7 of Zyvox IV. Recommend changing to oral when able. Initialized on 01/24/24 07:33 - END OF NOTE Assessment/Plan (1) Open wound of both legs with complication Current Visit: Yes Status: Acute Assessment & Plan: - IV antibiotics Linezoid and Zosyn - podiatry consult - Wound cultures from 01/13 show Pseudomonas BLLE - BC x2- negative - XR BLLE reviewed- negative for osteomyelitis - reviewed podiatry note and agree with plan of care. -open amputation great toe possible first metatarsal partial amputation left foot performed 01/19- Left lower medial wound + for pseudomonas - Right lateral gram negative sensitivity pending - Plan is for podiatry to close left foot Wednesday - possible dc Wednesday - Left greater toe culture + proteus mirabilis, Citrobactor Freundii, MRSA - Continue Zosyn and Zyvox 01/24: -PODS# 5 s/p closure today Plan for dc to [place] with oral Zyvox and cefepime per podiatry -dressing changes per podiatry -PICC placed today Code(s): S81.801A - UNSPECIFIED OPEN WOUND, RIGHT LOWER LEG, INITIAL ENCOUNTER; S81.802A - UNSPECIFIED OPEN WOUND, LEFT LOWER LEG, INITIAL ENCOUNTER (2) Cellulitis Current Visit: Yes Status: Acute Qualifiers: Site of cellulitis: extremity Site of cellulitis of extremity: lower extremity Assessment & Plan: - BLLE - Doxycycline IV started in ER - IV antibiotics Linezoid and Zosyn started IIP - podiatry consult - reviewed note - agree with plan - Wound cultures from 01/13 show Pseudomonas BLLE - repeat wound cultures completed in ER. - Wound cultures BLLE + for Pseudomonas and citrobacter - Continue Zosyn/Zyvox 01/24 -see open wound above Code(s): L03.90 - CELLULITIS, UNSPECIFIED (3) Amputated toe of left foot Current Visit: Yes Status: Acute Assessment & Plan: - open amputation great toe possible first metatarsal partial amputation left foot performed 01/19 - BLLE wrapped - LLE elevated - IV antibiotics zyvox/zosyn -Dressing CDI - Blood thinner restarted 01/21 01/24: -see open wound for plan Code(s): S98.132A - COMPLETE TRAUMATIC AMPUTATION OF ONE LEFT LESSER TOE, INIT (4) Hypothyroid Current Visit: Yes Status: Acute Assessment & Plan: - Continue synthroid - 11/30/23 TSH reviewed at 3.9- WNL Code(s): E03.9 - HYPOTHYROIDISM, UNSPECIFIED (5) Weakness Current Visit: Yes Status: Acute Assessment & Plan: - Per daughter, pt was up and walking with a cane in October - Lives in ECF - PT/OT eval and treat Code(s): R53.1 - WEAKNESS (6) BPH (benign prostatic hyperplasia) Current Visit: Yes Status: Acute Assessment & Plan: - Continue Flomax Code(s): N40.0 - BENIGN PROSTATIC HYPERPLASIA WITHOUT LOWER URINRY TRACT SYMP (7) Pancytopenia Current Visit: Yes Status: Acute Assessment & Plan: - Chronic per daughter - trend labs - Consider OP f/u with hematology Code(s): D61.818 - OTHER PANCYTOPENIA (8) Confusion Current Visit: Yes Status: Acute Assessment & Plan: - CXR and CT head reviewed. - Daughter reports pt has increased confusion with infections - resolved Code(s): R41.0 - DISORIENTATION, UNSPECIFIED (9) Hallucination Current Visit: Yes Status: Acute Assessment & Plan: - CT head negative for acute concern -No hallucination voiced today Code(s): R44.3 - HALLUCINATIONS, UNSPECIFIED (10) Hypokalemia Current Visit: Yes Status: Acute Assessment & Plan: -resolved after replenishment -continue to monitor renal/lytes -tele Code(s): E87.6 - HYPOKALEMIA (11) Metabolic acidosis Current Visit: Yes Status: Acute Assessment & Plan: -treated with oral bicarb -discontinued - resolved Code(s): E87.20 - ACIDOSIS, UNSPECIFIED (12) Osteomyelitis of toe of left foot Current Visit: Yes Status: Acute Assessment & Plan: - as seen on MRI 01/20/24 - Podiatry following - see post op amputation plan above Code(s): M86.9 - OSTEOMYELITIS, UNSPECIFIED (13) Thrombocytopenia Current Visit: Yes Status: Acute Assessment & Plan: - Platelets - trend - Daughter does not want further workup for this or referral OP to oncology/hematology. (14) Acute on chronic renal failure Current Visit: No Status: Acute Qualifiers: Chronic kidney disease stage: stage 3 (moderate) Assessment & Plan: -baseline 1.75- trend -CMP reviewed - creat at 1.97<2.03 - Encouraged oral intake d/t fluid restrictions at hospital. - hold Lasix and Metolazone - NS @ 50 ml x1 500ml bag -01/21 01/24: -IVF - 500ml bag x 1 -CMP reviewed, creat at 2.3 > 1.97<2.03 - will monitor Code(s): N17.9 - ACUTE KIDNEY FAILURE, UNSPECIFIED; N18.9 - CHRONIC KIDNEY DISEASE, UNSPECIFIED (15) CHF (congestive heart failure) Current Visit: No Status: Acute Assessment & Plan: - I&O's/Daily weights/elevated HOB - Trop negative x 3 - tele - BNP 39793 - CXR shows pulm edema - Echo 07/19/23- EF 15-20% IMPRESSION: 1. SEVERE LEFT VENTRICULAR SYSTOLIC DYSFUNCTION. 2. SEVERE ASSYMMETRIC LEFT VENTRICULAR HYPERTROPHY INVOLVING THE INTERVENTRICULAR SEPTUM. 3. BORDERLINE LEFT ATRIAL DILATATION. 4. MILD TRICUSPID REGURGITATION. 5. MILD MITRAL REGURGITATION. 6. NORMAL RIGHT VENTRICULAR SYSTOLIC PRESSURE. - Continue Lasix 60mg PO BID- home dose when STEPHANY resolves - remains at room air -baseline Code(s): I50.9 - HEART FAILURE, UNSPECIFIED (16) Diabetes type 2, controlled Current Visit: No Status: Chronic Qualifiers: Assessment & Plan: - Reviewed from 11/30/23 A1C 7.64 - Continue accuchecks ac/hs, humalog SSI - low dose due to hypoglycemic episodes - Carb consistent diet - Hypoglycemia protocol added - Continue to monitor accuchecks VTE: Xarelto PPI: Protonix Next of KIN: daughter D/C plan: per podiatry recs Code status: SCO/DNR Code(s): S81.801A - UNSPECIFIED OPEN WOUND, RIGHT LOWER LEG, INITIAL ENCOUNTER; S81.802A - UNSPECIFIED OPEN WOUND, LEFT LOWER LEG, INITIAL ENCOUNTER (2) Cellulitis Current Visit: Yes Status: Acute Qualifiers: Site of cellulitis: extremity Site of cellulitis of extremity: lower extremity Code(s): L03.90 - CELLULITIS, UNSPECIFIED (3) Amputated toe of left foot Current Visit: Yes Status: Acute Code(s): S98.132A - COMPLETE TRAUMATIC AMPUTATION OF ONE LEFT LESSER TOE, INIT (4) Hypothyroid Current Visit: Yes Status: Acute Code(s): E03.9 - HYPOTHYROIDISM, UNSPECIFIED (5) Weakness Current Visit: Yes Status: Acute Code(s): R53.1 - WEAKNESS (6) BPH (benign prostatic hyperplasia) Current Visit: Yes Status: Acute Code(s): N40.0 - BENIGN PROSTATIC HYPERPLASIA WITHOUT LOWER URINRY TRACT SYMP (7) Pancytopenia Current Visit: Yes Status: Acute Code(s): D61.818 - OTHER PANCYTOPENIA (8) Confusion Current Visit: Yes Status: Acute Code(s): R41.0 - DISORIENTATION, UNSPECIFIED (9) Hallucination Current Visit: Yes Status: Acute Code(s): R44.3 - HALLUCINATIONS, UNSPECIFIED (10) Hypokalemia Current Visit: Yes Status: Acute Code(s): E87.6 - HYPOKALEMIA (11) Metabolic acidosis Current Visit: Yes Status: Acute Code(s): E87.20 - ACIDOSIS, UNSPECIFIED (12) Osteomyelitis of toe of left foot Current Visit: Yes Status: Acute Code(s): M86.9 - OSTEOMYELITIS, UNSPECIFIED (13) Thrombocytopenia Current Visit: Yes Status: Acute (14) Acute on chronic renal failure Current Visit: No Status: Acute Qualifiers: Chronic kidney disease stage: stage 3 (moderate) Code(s): N17.9 - ACUTE KIDNEY FAILURE, UNSPECIFIED; N18.9 - CHRONIC KIDNEY DISEASE, UNSPECIFIED (15) CHF (congestive heart failure) Current Visit: No Status: Acute Code(s): I50.9 - HEART FAILURE, UNSPECIFIED (16) Diabetes type 2, controlled Current Visit: No Status: Chronic Qualifiers: Code(s): E11.9 - TYPE 2 DIABETES MELLITUS WITHOUT COMPLICATIONS
[2024-01-25 05:24] LABS: Absolute Neutrophil Ct (ANC) 1.96 x10^3/uL (1.78-5.38); Basophil (Absolute #) 0.03 x10^3/uL (0.01-0.08); Eosinophil % 2.6 % (0.8-7.0); Eosinophil (Absolute #) 0.08 x10^3/uL (0.04-0.54); Hematocrit 23.9 % (40.1-51.0); Hemoglobin 7.5 g/dL (13.7-17.5); IMMATURE GRAN # 0.01 x10^3u/L (0.001-0.031); IMMATURE GRAN % 0.3 % (0.001-0.429); Lymphocyte (Absolute #) 0.66 x10^3/uL (1.32-3.57); Lymphocytes % 21.8 % (21.8-53.1); Mean Cell Volume 88.8 fL (79.0-92.2); Mean Corpuscular Hemoglobin 27.9 pg (25.7-32.2); Mean Corpuscular Hgb Concent. 31.4 g/dL (32.3-36.5); Monocyte (Absolute #) 0.29 x10^3/uL (0.30-0.82); Monocytes % 9.6 % (5.3-12.2); Neutrophil % 64.7 % (34.0-67.9); Platelet Count 107 x10^3/uL (163-337); Red Blood Count 2.69 x10^6/uL (4.63-6.08); Red Cell Distribution Width 19.5 % (11.6-14.4)
[2024-01-25 05:48] LABS: Creatinine 1 2.3 mg/dL (0.66-1.25); EST GLOMERULAR FILTRATION RATE 26.8 ML/MIN
[2024-01-25 05:49] LABS: ALBUMIN 3.1 g/dL (3.5-5.0); ANION GAP 16.4 MEQ/L (5-15); BILIRUBIN,TOTAL 0.8 mg/dL (0.2-1.3); Calcium 8.8 mg/dL (8.4-10.2); Total Protein 6.2 g/dL (6.3-8.2)
--- NOTE | 2024-01-25 09:03 | XRAY ---
Indication: Left foot metatarsal resection. Intraoperative fluoroscopy provided for 4 seconds. Single digital spot image submitted for interpretation demonstrates total amputation 1st toe and partial amputation distal 1st metatarsal. Correlate with intraoperative findings/report.
[2024-01-25 09:08] LABS: Hematocrit 23.9 % (40.1-51.0); Hemoglobin 7.4 g/dL (13.7-17.5)
[2024-01-25] MEDS: VITAMIN D2 PO SCH (10:06)
[2024-01-25] MEDS: Sodium Chloride 0.9% 500 ML 500 ML IV SCH (10:06)
--- NOTE | 2024-01-25 11:37 | XRAY ---
4 seconds of fluoroscopy was used in surgery for a left foot metatarsal resection.
--- NOTE | 2024-01-25 12:47 | XRAY ---
Indication: PICC placement. Comparison: January 18, 2024 Portable chest demonstrates new right arm PICC line with tip projecting over right atrium. Approximate withdrawal [address] tip at atrial caval junction. Heart remains enlarged again with vascular congestion and bibasilar effusions/atelectasis.
--- NOTE | 2024-01-25 23:20 | OP ---
SURGERY DATE/TIME: 01/25/2024 [id number] This is a staged procedure. PREOPERATIVE DIAGNOSES: 1) Osteomyelitis, left hallux. 2) Diabetic foot wound. 3) Diabetic peripheral neuropathy. 4) Peripheral vascular disease. 5) Diabetic peripheral angiopathy secondary to type 2 diabetes. 6) Pseudomonas and methicillin-resistant Staphylococcus aureus infection. POSTOPERATIVE DIAGNOSES: 1) Osteomyelitis, left hallux. 2) Diabetic foot wound. 3) Diabetic peripheral neuropathy. 4) Peripheral vascular disease. 5) Diabetic peripheral angiopathy secondary to type 2 diabetes. 6) Pseudomonas and methicillin-resistant Staphylococcus aureus infection. PROCEDURE: 1) Partial metatarsal amputation, first ray. 2) Abductor hallucis muscle belly flap. 3) Delayed primary closure. SURGEON: Ferdinand Goss DPM ENROBER: EWELINA Bates ANESTHESIA: Local. HEMOSTASIS: Pressure dressing. ESTIMATED BLOOD LOSS: Approximately 10 mL. MATERIALS: 2-0 Vicryl, 3-0 nylon. INDICATIONS: The patient is a very pleasant 88-year-old male, very well-known to my service for the last 4 to 5 years. Patient has had a staged procedure for osteomyelitis to the left lower extremity that is expected to be the cause of some of the infection to the left lower extremity at this time. An amputation already took place, which was left open over the weekend. He has responded well to the amputation. However, does appear to be declining from a healthcare standpoint. From that standpoint, family agrees to proceed with the closure of the wound and we will proceed with this at this time. Patient's power of deputy commonwealth's attorney is his daughter Roselia, who understands all risks, complications and benefits of surgical intervention at this time, including but not limited to infection, hematoma, seroma, possibility of delayed wound healing, non-wound healing, possible failure of surgical intervention and possible need for further surgical intervention at a later date. No guarantees were provided as to the outcome. It is at this time we decided to proceed. DESCRIPTION OF PROCEDURE AND FINDINGS: Patient was brought into the operating room and placed on the operating room table in the supine position. At this time, the left lower extremity was prepped and draped in the typical sterile fashion and lowered onto the surgical field. Attention was directed to the left lower extremity where sutures were removed from the surgical site. A 15 blade was utilized to deepen the incision down to the level of bone. The bone quality was still fairly necrotic and nonviable. At this time, an 18 mm sagittal saw was utilized to remove the bone and this was handed off the field for clean margins and pathological assessment for permanent. At this time, copious amounts of sterile saline were utilized to flush the surgical site. Gloves were changed and a new 15 blade was utilized to elevate the abductor hallucis muscle belly flap from the plantar medial aspect of the incision site. A 2-0 Vicryl was then utilized to wrap the abductor hallucis muscle belly over the periosteum of the first metatarsal at its resection site. This was coapted nicely with no space. Once this was performed, a 15 blade was then utilized again to incise the skin edges to assess for a healthy bleeding edge, which was encountered. A 2-0 Vicryl was then utilized in simple interrupted buried-type fashion to coapt the subcutaneous edges and then, a horizontal mattress and alternating simple was utilized to rob the skin and hold tension across the surgical site, coapting the surgical incision. Once this was performed, copious amounts of sterile saline were utilized to flush the skin. A dry lap was then utilized and then, a dressing consisting of Betadine, Adaptic, 4 x 4, Kerlix, ABD and Lino was applied to the left lower extremity. The patient was then reversed to the postoperative anesthesia care unit with vital signs stable and vascular status intact. The patient handled the anesthesia, as well as the procedure, without significant complication. Postoperative orders as indicated in the patient's discharge chart.
[2024-01-26 04:30] LABS: 027 TOX PROD PRESUMPTIVE NEGATIVE (NEGATIVE); TOXIGENIC C. DIFF ORG NEGATIVE (NEGATIVE)
--- NOTE | 2024-01-26 05:15 | PCM.DS ---
Discharge Summary Date of Admission: 01/19/24 15:23 Date of Discharge: 01/26/24 Admitting Physician: AMIE HUBER MD Consults: Consults on Case 01/18/24 18:32 Consult Podiatry ROUTINE 01/22/24 13:31 Notify Physician ROUTINE Primary Care Provider: [facility] Allergies Allergies sulfamethoxazole [From Bactrim] Allergy (Intermediate, Verified 01/18/24 11:43) Swelling trimethoprim [From Bactrim] Allergy (Intermediate, Verified 01/18/24 11:43) Swelling Sulfa (Sulfonamide Antibiotics) Adverse Reaction (Intermediate, Verified 01/18/24 11:43) Swelling quetiapine [From Seroquel] Adverse Reaction (Verified 01/18/24 19:17) RESPIRATORY DEPRESSION Hospital Summary - Hospital Course Hospital Course: HPI: is a 88 year old male with PMHX of CVA 2005, CHF, hyperlipidemia, HTN, ID, Type II DM, OA, CKD, and CAD. Pt presented to ED 01/18/24 via EMS from the [facility] for evaluation of abnormal labs, possible lower extremity infection confusion and hallucination. Patient states he sees little girls floating but he knows they are not real. Patient is cognizant and aware of the hallucinations. Daughter states he developed green drainage from BLLE01/14/24. He then became confused the next day. She reports he often has confusion with extreme infections. Wound cultures done 01/14/24 at [facility] show pseudomas for BLLE. He had not been on any antibiotics until today. Repeat wound cultures completed in ER. BC [id number]. Pt started on IV antibiotics and changed to broad spectrum antibiotics IP. Podiatry consulted and XR's of BLLE ordered. IV lasix gave in ER for CHF exacerbation as seen on CXR. Per pt's daughter pt had an angiogram on and needs further surgery of LLE for better blood flow. This is to be done per [employer] Dr. Perez. Pt follows Dr. Huggins for nephrology. Daughter would also like pt to work with PT/OT a while here as pt was up and walking with a cane in October. Podiatry consulted and open amputation great toe possible first metatarsal partial amputation left foot performed 01/19. Culture from toe wound shows MRSA. Continue Zosyn and Zyvox. Wound closed 01/25/24. Will return to [place] today on oral zyvox and IV cefepime. Podiatry following as OP. PICC line placed Discharge Note Latest Assessment & Plan - IV antibiotics Linezoid and Zosyn - podiatry consult - Wound cultures from 01/13 show Pseudomonas BLLE - BC x2- negative - XR BLLE reviewed- negative for osteomyelitis - reviewed podiatry note and agree with plan of care. -open amputation great toe possible first metatarsal partial amputation left foot performed 01/19- Left lower medial wound + for pseudomonas - Right lateral gram negative sensitivity pending - Plan is for podiatry to close left foot Wednesday - possible dc Wednesday - Left greater toe culture + proteus mirabilis, Citrobactor Freundii, MRSA - Continue Zosyn and Zyvox 01/24: -PODS# 5 s/p closure today Plan for dc to [place] with oral Zyvox and cefepime per podiatry -dressing changes per podiatry -PICC placed today Code(s): S81.801A - UNSPECIFIED OPEN WOUND, RIGHT LOWER LEG, INITIAL ENCOUNTER; S81.802A - UNSPECIFIED OPEN WOUND, LEFT LOWER LEG, INITIAL ENCOUNTER (2) Cellulitis Current Visit: Yes Status: Acute Qualifiers: Site of cellulitis: extremity Site of cellulitis of extremity: lower extremity Assessment & Plan: - BLLE - Doxycycline IV started in ER - IV antibiotics Linezoid and Zosyn started IIP - podiatry consult - reviewed note - agree with plan - Wound cultures from 01/13 show Pseudomonas BLLE - repeat wound cultures completed in ER. - Wound cultures BLLE + for Pseudomonas and citrobacter - Continue Zosyn/Zyvox 01/24 -see open wound above Code(s): L03.90 - CELLULITIS, UNSPECIFIED (3) Amputated toe of left foot Current Visit: Yes Status: Acute Assessment & Plan: - open amputation great toe possible first metatarsal partial amputation left foot performed 01/19 - BLLE wrapped - LLE elevated - IV antibiotics zyvox/zosyn -Dressing CDI - Blood thinner restarted 01/21 01/24: -see open wound for plan Code(s): S98.132A - COMPLETE TRAUMATIC AMPUTATION OF ONE LEFT LESSER TOE, INIT (4) Hypothyroid Current Visit: Yes Status: Acute Assessment & Plan: - Continue synthroid - 11/30/23 TSH reviewed at 3.9- WNL Code(s): E03.9 - HYPOTHYROIDISM, UNSPECIFIED (5) Weakness Current Visit: Yes Status: Acute Assessment & Plan: - Per daughter, pt was up and walking with a cane in October - Lives in ECF - PT/OT eval and treat Code(s): R53.1 - WEAKNESS (6) BPH (benign prostatic hyperplasia) Current Visit: Yes Status: Acute Assessment & Plan: - Continue Flomax Code(s): N40.0 - BENIGN PROSTATIC HYPERPLASIA WITHOUT LOWER URINRY TRACT SYMP (7) Pancytopenia Current Visit: Yes Status: Acute Assessment & Plan: - Chronic per daughter - trend labs - Consider OP f/u with hematology Code(s): D61.818 - OTHER PANCYTOPENIA (8) Confusion Current Visit: Yes Status: Acute Assessment & Plan: - CXR and CT head reviewed. - Daughter reports pt has increased confusion with infections - resolved Code(s): R41.0 - DISORIENTATION, UNSPECIFIED (9) Hallucination Current Visit: Yes Status: Acute Assessment & Plan: - CT head negative for acute concern -No hallucination voiced today Code(s): R44.3 - HALLUCINATIONS, UNSPECIFIED (10) Hypokalemia Current Visit: Yes Status: Acute Assessment & Plan: -resolved after replenishment -continue to monitor renal/lytes -tele Code(s): E87.6 - HYPOKALEMIA (11) Metabolic acidosis Current Visit: Yes Status: Acute Assessment & Plan: -treated with oral bicarb -discontinued - resolved Code(s): E87.20 - ACIDOSIS, UNSPECIFIED (12) Osteomyelitis of toe of left foot Current Visit: Yes Status: Acute Assessment & Plan: - as seen on MRI 01/20/24 - Podiatry following - see post op amputation plan above Code(s): M86.9 - OSTEOMYELITIS, UNSPECIFIED (13) Thrombocytopenia Current Visit: Yes Status: Acute Assessment & Plan: - Platelets - trend - Daughter does not want further workup for this or referral OP to oncology/hematology. (14) Acute on chronic renal failure Current Visit: No Status: Acute Qualifiers: Chronic kidney disease stage: stage 3 (moderate) Assessment & Plan: -baseline 1.75- trend -CMP reviewed - creat at 1.97<2.03 - Encouraged oral intake d/t fluid restrictions at hospital. - hold Lasix and Metolazone - NS @ 50 ml x1 500ml bag -01/21 01/24: -IVF - 500ml bag x 1 -CMP reviewed, creat at 2.3 > 1.97<2.03 - will monitor Code(s): N17.9 - ACUTE KIDNEY FAILURE, UNSPECIFIED; N18.9 - CHRONIC KIDNEY DISEASE, UNSPECIFIED (15) CHF (congestive heart failure) Current Visit: No Status: Acute Assessment & Plan: - I&O's/Daily weights/elevated HOB - Trop negative x 3 - tele - BNP [id number] - CXR shows pulm edema - Echo 07/19/23- EF 15-20% IMPRESSION: 1. SEVERE LEFT VENTRICULAR SYSTOLIC DYSFUNCTION. 2. SEVERE ASSYMMETRIC LEFT VENTRICULAR HYPERTROPHY INVOLVING THE INTERVENTRICULAR SEPTUM. 3. BORDERLINE LEFT ATRIAL DILATATION. 4. MILD TRICUSPID REGURGITATION. 5. MILD MITRAL REGURGITATION. 6. NORMAL RIGHT VENTRICULAR SYSTOLIC PRESSURE. - Continue Lasix 60mg PO BID- home dose when STEPHANY resolves - remains at room air -baseline Code(s): I50.9 - HEART FAILURE, UNSPECIFIED (16) Diabetes type 2, controlled Current Visit: No Status: Chronic Qualifiers: Assessment & Plan: - Reviewed from 11/30/23 A1C 7.64 - Continue accuchecks ac/hs, humalog SSI - low dose due to hypoglycemic episodes - Carb consistent diet - Hypoglycemia protocol added - Continue to monitor accuchecks I spent 35 minutes [id number] with the patient on the day of discharge performing discharge exam, discussing hospital stay and discharge instructions with patient and caregivers, preparation of discharge records, prescriptions & referral forms and addressing any questions/concerns the patient had as documented above. - Vitals & Intake/Output Vital Signs: Vital Signs Temperature 97.0 F 01/26/24 03:44 Pulse Rate 89 01/26/24 03:44 Respiratory Rate 19 01/26/24 03:44 Blood Pressure 119/88 01/26/24 03:44 O2 Sat by Pulse Oximetry 96 01/26/24 03:44 Intake & Output: Intake & Output 01/23/24 01/24/24 01/25/24 01/26/24 11:59 11:59 11:59 11:59 Intake Total 2154 3698 1004 240 Output Total 400 550 Balance 0014 3148 1004 240 Weight 87 kg - Lab Result Diagrams: 01/25/24 09:06 01/25/24 05:20 Lab Results-Last 24 Hrs: Lab Results-Last 24 Hours 01/25/24 01/25/24 01/25/24 Range/Units 05:20 05:20 09:06 WBC 3.0 L (4.23-9.07) x10^3/uL RBC 2.69 L (4.63-6.08) x10^6/uL Hgb 7.5 L 7.4 L (13.7-17.5) g/dL Hct 23.9 L 23.9 L (40.1-51.0) % MCV 88.8 (79.0-92.2) fL MCH 27.9 (25.7-32.2) pg MCHC 31.4 L (32.3-36.5) g/dL RDW 19.5 H (11.6-14.4) % Plt Count 107 L (163-337) x10^3/uL MPV 10.0 (9.4-12.4) fL Gran % 64.7 (34.0-67.9) % Immature Gran % (Auto) 0.3 (0.001-0.429) % Nucleat RBC Rel Count 0.0 (0.00-0.2) % Eos # (Auto) 0.08 (0.04-0.54) x10^3/uL Immature Gran # (Auto) 0.01 (0.001-0.031) x10^3u/L Absolute Lymphs (auto) 0.66 L (1.32-3.57) x10^3/uL Absolute Monos (auto) 0.29 L (0.30-0.82) x10^3/uL Absolute Nucleated RBC 0.00 (0.00-0.012) x10^3u/L Lymphocytes % 21.8 (21.8-53.1) % Monocytes % 9.6 (5.3-12.2) % Eosinophils % 2.6 (0.8-7.0) % Basophils % 1.0 (0.2-1.2) % Absolute Granulocytes 1.96 (1.78-5.38) x10^3/uL Basophils # 0.03 (0.01-0.08) x10^3/uL Sodium 139 (135-145) mmol/L Potassium 5.0 (3.5-5.1) mmol/L Chloride 109 H (98-107) mmol/L Carbon Dioxide 18 L (22-30) mmol/L Anion Gap 16.4 H (5-15) MEQ/L BUN 26 H (9-20) mg/dL Creatinine 2.30 H (0.66-1.25) mg/dL Estimated GFR 26.8 ML/MIN Glucose 165 H (74-106) mg/dL POC Glucometer (74 to 106) mg/dL Calcium 8.8 (8.4-10.2) mg/dL Total Bilirubin 0.80 (0.2-1.3) mg/dL AST 32 (17-59) U/L ALT 22 (0-50) U/L Alkaline Phosphatase 64 (38-126) U/L Serum Total Protein 6.2 L (6.3-8.2) g/dL Albumin 3.1 L (3.5-5.0) g/dL C. difficile Screen (NEGATIVE) C.difficile 027-NAP1-B1 (NEGATIVE) 01/25/24 01/25/24 01/25/24 Range/Units 11:27 16:35 21:36 WBC (4.23-9.07) x10^3/uL RBC (4.63-6.08) x10^6/uL Hgb (13.7-17.5) g/dL Hct (40.1-51.0) % MCV (79.0-92.2) fL MCH (25.7-32.2) pg MCHC (32.3-36.5) g/dL RDW (11.6-14.4) % Plt Count (163-337) x10^3/uL MPV (9.4-12.4) fL Gran % (34.0-67.9) % Immature Gran % (Auto) (0.001-0.429) % Nucleat RBC Rel Count (0.00-0.2) % Eos # (Auto) (0.04-0.54) x10^3/uL Immature Gran # (Auto) (0.001-0.031) x10^3u/L Absolute Lymphs (auto) (1.32-3.57) x10^3/uL Absolute Monos (auto) (0.30-0.82) x10^3/uL Absolute Nucleated RBC (0.00-0.012) x10^3u/L Lymphocytes % (21.8-53.1) % Monocytes % (5.3-12.2) % Eosinophils % (0.8-7.0) % Basophils % (0.2-1.2) % Absolute Granulocytes (1.78-5.38) x10^3/uL Basophils # (0.01-0.08) x10^3/uL Sodium (135-145) mmol/L Potassium (3.5-5.1) mmol/L Chloride (98-107) mmol/L Carbon Dioxide (22-30) mmol/L Anion Gap (5-15) MEQ/L BUN (9-20) mg/dL Creatinine (0.66-1.25) mg/dL Estimated GFR ML/MIN Glucose (74-106) mg/dL POC Glucometer 193 H 189 H 225 H (74 to 106) mg/dL Calcium (8.4-10.2) mg/dL Total Bilirubin (0.2-1.3) mg/dL AST (17-59) U/L ALT (0-50) U/L Alkaline Phosphatase (38-126) U/L Serum Total Protein (6.3-8.2) g/dL Albumin (3.5-5.0) g/dL C. difficile Screen (NEGATIVE) C.difficile 027-NAP1-B1 (NEGATIVE) 01/26/24 Range/Units 03:43 WBC (4.23-9.07) x10^3/uL RBC (4.63-6.08) x10^6/uL Hgb (13.7-17.5) g/dL Hct (40.1-51.0) % MCV (79.0-92.2) fL MCH (25.7-32.2) pg MCHC (32.3-36.5) g/dL RDW (11.6-14.4) % Plt Count (163-337) x10^3/uL MPV (9.4-12.4) fL Gran % (34.0-67.9) % Immature Gran % (Auto) (0.001-0.429) % Nucleat RBC Rel Count (0.00-0.2) % Eos # (Auto) (0.04-0.54) x10^3/uL Immature Gran # (Auto) (0.001-0.031) x10^3u/L Absolute Lymphs (auto) (1.32-3.57) x10^3/uL Absolute Monos (auto) (0.30-0.82) x10^3/uL Absolute Nucleated RBC (0.00-0.012) x10^3u/L Lymphocytes % (21.8-53.1) % Monocytes % (5.3-12.2) % Eosinophils % (0.8-7.0) % Basophils % (0.2-1.2) % Absolute Granulocytes (1.78-5.38) x10^3/uL Basophils # (0.01-0.08) x10^3/uL Sodium (135-145) mmol/L Potassium (3.5-5.1) mmol/L Chloride (98-107) mmol/L Carbon Dioxide (22-30) mmol/L Anion Gap (5-15) MEQ/L BUN (9-20) mg/dL Creatinine (0.66-1.25) mg/dL Estimated GFR ML/MIN Glucose (74-106) mg/dL POC Glucometer (74 to 106) mg/dL Calcium (8.4-10.2) mg/dL Total Bilirubin (0.2-1.3) mg/dL AST (17-59) U/L ALT (0-50) U/L Alkaline Phosphatase (38-126) U/L Serum Total Protein (6.3-8.2) g/dL Albumin (3.5-5.0) g/dL C. difficile Screen NEGATIVE (NEGATIVE) C.difficile 027-NAP1-B1 PRESUMPTIVE NEGATIVE (NEGATIVE) Micro Results-Entire Visit: Microbiology 01/20/24 15:04 Gram Stain - Final Toe - L Big (Greater) Gram Stain Result 1 - Final Gram Stain Result 2 - Final AFB Specimen Processing - Final Acid Fast Bacilli Smear - Final 01/18/24 12:25 Blood Culture - Final Blood 01/19/24 13:20 Wound Culture - Final Toe - L Big (Greater) Proteus Mirabilis Citrobacter Freundii Methicillin Resist Staph Aur 01/19/24 13:28 Wound Culture - Final Leg - Right Lateral Pseudomonas Aeruginosa 01/19/24 13:25 Wound Culture - Final Leg - Left Lower Medial Pseudomonas Aeruginosa 01/18/24 16:23 Wound Culture - Final Leg - Left Lower Lateral Pseudomonas Aeruginosa Enterobacter Clocae Complex 01/18/24 16:23 Wound Culture - Final Leg - Right Lower Pseudomonas Aeruginosa Citrobacter Freundii Accuchecks Date 01/25/24 Date 01/25/24 Date 01/25/24 Date 01/25/24 Time 21:30 - Radiology Exams Ordered Rad Exams-Entire Visit: Radiology Procedures Category Date Time Status CHEST 1 VIEW (PORTABLE) Stat Exams 01/25/24 12:13 Completed - Procedures and Test Procedures and Tests throughout Hospitalization: Therapy Orders & Screens 01/18/24 19:06 PT Eval & Treat ( Order) ONCE Reason for Eval:: progressive weakness Diagnosis: Cellulitis, delirium, hallucinations OT Eval and Treat (MD Order) ONCE Comment: Physician Instructions: Reason For Exam: Diagnosis: Cellulitis, delirium, hallucinations 01/19/24 08:00 OT Screen per Nursing Assess ONCE Comment: Protocol Order Physician Instructions: Greater than 3 points order OT Admission Screening Reason For Exam: Triggered on Admission Diagnosis: Cellulitis, delirium, hallucinations Open Wound/Cellutlitis/Pressure Ulcers: Yes Acute Fx/ORIF/Change in wt bearing status: No Severe MUSCULOSKELETAL pain: No ADL Dysfunction: Yes Acute CVA w/Hemiparesis/Hemiplegia: No Decreased Functional Mobility/Strength: Yes Sprain/Strain: No Acute Post-op Mobility Dysfunction: No Total Points: 9 PT Screen per Nursing Assess ONCE Comment: Protocol Order Physician Instructions: Greater than 3 points order PT Admission Screenin Reason For Exam: Triggered on Admission Diagnosis: Cellulitis, delirium, hallucinations Open Wound/Cellutlitis/Pressure Ulcers: Yes Acute Fx/ORIF/Change in wt bearing status: No Severe MUSCULOSKELETAL pain: No ADL Dysfunction: Yes Acute CVA w/Hemiparesis/Hemiplegia: No Decreased Functional Mobility/Strength: Yes Sprain/Strain: No Acute Post-op Mobility Dysfunction: No Total Points: 9 ST Screen per Nursing Assess ONCE Comment: Protocol Order Physician Instructions: Greater than [address] Admission Screening Reason For Exam: Triggered on Admission Diagnosis: Cellulitis, delirium, hallucinations CVA/Dyshpagia/Aphasia: Yes Cognitive Deficits: No Dehydration/Nutrition Deficit: No Reflux: No Oral-Motor Difficulties: No Pneumonia: No Usp Resident: Yes Total Points: 10 Discharge Exam Wound Assessment: Skin/Wound Assessment Wound/Incision Assessment Start: 01/18/24 18:05 Text: Status: Active Freq: Q6H Protocol: Document 01/26/24 02:00 AK (Rec: 01/26/24 02:40 AK [id number]) Wound/Incision Assessment Left Lower Calf Wound Assessment Shift Assessment Wound Type UNABLE TO ASSESS Wound Stage Non Pressure Wound Dressing Status Dry & Intact Drainage Amount None Primary Dressing UNNABOOT Comment Dressing intact Right Lower Calf Wound Assessment Shift Assessment Wound Type UNABLE TO ASSESS Wound Stage Non Pressure Wound Dressing Status Dry & Intact Drainage Amount None Primary Dressing UNNABOOT Comment Dressing intact Left Great Toe Wound Assessment Shift Assessment Wound Type UNABLE TO ASSESS Wound Stage Non Pressure Wound Dressing Status Dry & Intact Drainage Amount Moderate Drainage Description Sanguineous Drainage Odor None/Absent Primary Dressing UNNABOOT Comment dressing CDI - no visible strikethrough Bilateral Buttocks Wound Assessment Shift Assessment Wound Type SHEARING Wound Stage Non Pressure Wound Drainage Amount None General Appearance Reddened Comment Healing shearing, redness noted. Barrier cream applied Wound Photo Photo Taken No Final Diagnosis/Problem List - Final Discharge Diagnosis/Problem (1) Open wound of both legs with complication Current Visit: Yes Status: Acute Code(s): S81.801A - UNSPECIFIED OPEN WOUND, RIGHT LOWER LEG, INITIAL ENCOUNTER; S81.802A - UNSPECIFIED OPEN WOUND, LEFT LOWER LEG, INITIAL ENCOUNTER (2) Cellulitis Current Visit: Yes Status: Acute Code(s): L03.90 - CELLULITIS, UNSPECIFIED (3) Amputated toe of left foot Current Visit: Yes Status: Acute Code(s): S98.132A - COMPLETE TRAUMATIC AMPUTATION OF ONE LEFT LESSER TOE, INIT (4) Hypothyroid Current Visit: Yes Status: Acute Code(s): E03.9 - HYPOTHYROIDISM, UNSPECIFIED (5) Weakness Current Visit: Yes Status: Acute Code(s): R53.1 - WEAKNESS (6) BPH (benign prostatic hyperplasia) Current Visit: Yes Status: Acute Code(s): N40.0 - BENIGN PROSTATIC HYPERPLASIA WITHOUT LOWER URINRY TRACT SYMP (7) Pancytopenia Current Visit: Yes Status: Acute Code(s): D61.818 - OTHER PANCYTOPENIA (8) Confusion Current Visit: Yes Status: Acute Code(s): R41.0 - DISORIENTATION, UNSPECIFIED (9) Hallucination Current Visit: Yes Status: Acute Code(s): R44.3 - HALLUCINATIONS, UNSPECIFIED (10) Hypokalemia Current Visit: Yes Status: Acute Code(s): E87.6 - HYPOKALEMIA (11) Metabolic acidosis Current Visit: Yes Status: Acute Code(s): E87.20 - ACIDOSIS, UNSPECIFIED (12) Osteomyelitis of toe of left foot Current Visit: Yes Status: Acute Code(s): M86.9 - OSTEOMYELITIS, UNSPECIFIED (13) Thrombocytopenia Current Visit: Yes Status: Acute (14) Acute on chronic renal failure Current Visit: No Status: Acute Code(s): N17.9 - ACUTE KIDNEY FAILURE, UNSPECIFIED; N18.9 - CHRONIC KIDNEY DISEASE, UNSPECIFIED (15) CHF (congestive heart failure) Current Visit: No Status: Acute Code(s): I50.9 - HEART FAILURE, UNSPECIFIED (16) Diabetes type 2, controlled Current Visit: No Status: Chronic Code(s): E11.9 - TYPE 2 DIABETES MELLITUS WITHOUT COMPLICATIONS - Discharge Disposition: Home, Self-Care Condition: Stable Prescriptions: No Action Insulin Glargine [Lantus Insulin] 18 unit SQ 1800 Insulin Aspart [Novolog] 0 unit SQ TIDWMEALS Citalopram Hydrobromide [Celexa] 20 mg PO DAILY Ferrous Sulfate [Iron] 325 mg PO TID Rivaroxaban [Xarelto] 2.5 mg PO BID Levothyroxine Sodium [Synthroid] 25 mcg PO DAILY Potassium Chloride 30 meq PO TID Lactobacillus Acidophilus [Acidophilus TABLET] 1 tab PO BID Tamsulosin HCl 0.4 mg [Flomax 0.4 MG] 0.4 mg PO HS Aspirin EC 81 mg [Ecotrin 81 mg] 81 mg PO DAILY Ergocalciferol (Vitamin D2) [Drisdol] 50,000 mcg PO WEEKLY Latanoprost [Xalatan] 1 drop DROPS HS Insulin Lispro [Humalog] 6 unit SQ TIDWMEALS Furosemide 40 mg [Lasix 40 MG] 60 mg PO BID Furosemide 20 mg [Lasix 20 mg] 60 mg PO BID metOLazone [Metolazone] 5 mg PO UD Additional Instructions: [facility] RECORD SHOWS PT SCHED WITH DR DE LA CRUZ AT 12:50 DATE UNKNOWN Follow up with: KALLIE HAYES DPM [ACTIVE STAFF] - 02/01/24 1:00 pm DOROTHY ORDOÑEZ MD [CONSULTING PHYSICIAN] -
[2024-01-26 06:05] LABS: Hematocrit 20.8 % (40.1-51.0); Mean Cell Volume 90.8 fL (79.0-92.2); Mean Corpuscular Hemoglobin 27.9 pg (25.7-32.2); Mean Corpuscular Hgb Concent. 30.8 g/dL (32.3-36.5); Mean Platelet Volume 10.2 fL (9.4-12.4); Platelet Count 89 x10^3/uL (163-337); Red Blood Count 2.29 x10^6/uL (4.63-6.08); Red Cell Distribution Width 19.5 % (11.6-14.4); White Blood Count 3.2 x10^3/uL (4.23-9.07)
[2024-01-26 06:16] LABS: ALBUMIN 2.8 g/dL (3.5-5.0); ANION GAP 15.8 MEQ/L (5-15); Calcium 8.7 mg/dL (8.4-10.2); Creatinine 1 2.18 mg/dL (0.66-1.25); EST GLOMERULAR FILTRATION RATE 28.6 ML/MIN; Total Protein 5.7 g/dL (6.3-8.2)
[2024-01-26 06:30] LABS: Hemoglobin 6.4 g/dL (13.7-17.5)
[2024-01-26 07:31] LABS: Basophil 1 % (0.2-1.2); Eosinophil 3 % (0.8-7.0); Hypochromia 3+; Lymphocytes 14 % (21.8-53.1); Monocyte 3 % (5.3-12.2); Neutrophils 79 % (34.0-67.9); Platelet Estimate DECREASED (NORMAL); Total Cells Counted 100
[2024-01-26 08:19] LABS: ABO TYPING A; Antibody Screen NEGATIVE (NEGATIVE); RH TYPING POSITIVE
[2024-01-26 08:21] LABS: CROSS MATCH (PRBC) COMPATIBLE (COMPATIBLE)
[2024-01-26] MEDS: Sodium Chloride 0.9% 250 ML 250 ML IV SCH (08:23)
[2024-01-26] MEDS: SODIUM BICARBONATE PO SCH (09:42)
[2024-01-26] MEDS ORDERED: XARELTO 10 MG TABLET PO SCH (10:00)
[2024-01-26 11:32] LABS: CROSS MATCH (PRBC) COMPATIBLE (COMPATIBLE)
--- NOTE | 2024-01-26 12:09 | PCM.NOTE ---
Date and Time: 01/26/24 1204 Subjective Assessment: is a 88 year old male with PMHX of CVA 2006, CHF, hyperlipidemia, HTN, CA, Type II DM, OA, CKD, and CAD. Pt presented to ED 01/18/24 via EMS from the [facility] for evaluation of abnormal labs, possible lower extremity infection confusion and hallucination. Patient states he sees little girls floating but he knows they are not real. Patient is cognizant and aware of the hallucinations. Daughter states he developed green drainage from BLLE01/14/24. He then became confused the next day. She reports he often has confusion with extreme infections. Wound cultures done 01/14/24 at [facility] show pseudomas for BLLE. He had not been on any antibiotics until today. Repeat wound cultures completed in ER. BC [id number]. Pt started on IV antibiotics and changed to broad spectrum antibiotics IP. Podiatry consulted and XR's of BLLE ordered. IV lasix gave in ER for CHF exacerbation as seen on CXR. Per pt's daughter pt had an angiogram on and needs further surgery of LLE for better blood flow. This is to be done per [facility] Dr. Perez. Pt follows Dr. Huggins for nephrology. Daughter would also like pt to work with PT/OT a while here as pt was up and walking with a cane in October. Podiatry consulted and open amputation great toe possible first metatarsal partial amputation left foot performed 01/19. Culture from toe wound shows MRSA. Continue Zosyn and Zyvox. Plan is to close wound on Wednesday, then home on possibly Wednesday on oral zyvox and IV cefepime. 01/24/24: Met and examined patient bedside. States he is feeling better although he is having some pain at left foot surgical site. Blood glucose level was low this morning. Will place on low SSI/ dc humalog/meal insulin with close monitoring. Creat is improving. Plan for wound closure tomorrow and possible discharge Wednesday to [place] with abx. Denies fever,cough, sob, cp, abdominal pain, MCKEON, dizziness, N/V/D. 01/24: Met with patient bedside. He is somewhat drowsy s/p closure of surgical wound today. No complaints of pain. Plan is for discharge tomorrow to [facility] with IV cefepime and oral zyvox with podiatry following as OP. PICC placed. 01/26/24: POD#1 s/p wound closure. Patient is more alert today and states he is doing well. Pain is about 5/10 on numerical pain scale. Discussed labs with patient and need for blood transfusion with hgb at 6.4, patient is agreeable and will receive 2 units today. Will contact Dr. Sheppard (ID) and discuss abx options as he is very familiar with patient and will need ID follow up as OP. Patient also acidotic this morning secondary to bouts of diarrhea. CDiff obtained and negative. Will start oral bicarb and immodium. - Review of Systems Constitutional: No Symptoms Eyes: No Symptoms Ears, Nose, & Throat: No Symptoms Respiratory: No Symptoms Cardiac: No Symptoms Abdominal/Gastrointestinal: No Symptoms Genitourinary Symptoms: No Symptoms Musculoskeletal: Other Skin: Other (surgical incision covered in dressing to left foot) Neurological: No Symptoms Psychological: No Symptoms Endocrine: No Symptoms Hematologic/Lymphatic: Anemia Immunological/Allergic: No Symptoms Objective Exam General Appearance: no apparent distress Neurologic Exam: alert, oriented x 3, cooperative Skin Exam: pale Wound Assessment: Skin/Wound Assessment Wound/Incision Assessment Start: 01/18/24 18:05 Text: Status: Active Freq: Q6H Protocol: Document 01/26/24 07:26 NICOLE (Rec: 01/26/24 07:38 NICOLE [id number]) Wound/Incision Assessment Left Lower Calf Wound Assessment Shift Assessment Wound Type UNABLE TO ASSESS Wound Stage Non Pressure Wound Dressing Status Dry & Intact Drainage Amount None Primary Dressing UNNABOOT Comment Dressing intact Right Lower Calf Wound Assessment Shift Assessment Wound Type UNABLE TO ASSESS Wound Stage Non Pressure Wound Dressing Status Dry & Intact Drainage Amount None Primary Dressing UNNABOOT Comment Dressing intact Left Great Toe Wound Assessment Shift Assessment Wound Type UNABLE TO ASSESS Wound Stage Non Pressure Wound Dressing Status Dry & Intact Drainage Amount Moderate Drainage Description Sanguineous Drainage Odor None/Absent Primary Dressing UNNABOOT Comment dressing CDI - no visible Bilateral Buttocks Wound Assessment Shift Assessment Wound Type SHEARING Wound Stage Non Pressure Wound Drainage Amount None General Appearance Reddened Comment Healing shearing, redness noted. Barrier cream applied Eye Exam: PERRL Ears, Nose, Throat Exam: normal ENT inspection Neck Exam: normal inspection Respiratory Exam: normal breath sounds, lungs clear Cardiovascular Exam: regular rate/rhythm, normal heart sounds Gastrointestinal/Abdomen Exam: soft, normal bowel sounds Extremity Exam: other (Left foot covered in surgical dressing) Back Exam: normal inspection Male Genitalia Exam: deferred Rectal Exam: deferred Objective Data Vital Signs: Vital Signs - 24 hr Temp Pulse Resp BP Pulse Ox 01/26/24 07:00 97.5 F 88 16 163/68 99 01/26/24 03:44 97.0 F 89 19 119/88 96 01/25/24 23:33 97.5 F 95 H 18 152/67 99 01/25/24 19:00 97.5 F 91 H 16 105/78 98 01/25/24 15:00 98.1 F 91 H 18 126/70 91 L Pain Assessment - Last Documented Pain Intensity 0 Intake and Output: Intake & Output 01/24/24 01/25/24 01/26/24 01/27/24 11:59 11:59 11:59 11:59 Intake Total 3698 1004 480 Output Total 550 Balance 3148 1004 480 Weight 87 kg Lab Results: Lab Results-Last 24 Hours 01/25/24 01/25/24 01/26/24 Range/Units 16:35 21:36 03:43 WBC (4.23-9.07) x10^3/uL RBC (4.63-6.08) x10^6/uL Hgb (13.7-17.5) g/dL Hct (40.1-51.0) % MCV (79.0-92.2) fL MCH (25.7-32.2) pg MCHC (32.3-36.5) g/dL RDW (11.6-14.4) % Plt Count (163-337) x10^3/uL MPV (9.4-12.4) fL Segmented Neutrophils (34.0-67.9) % Lymphocytes (Manual) (21.8-53.1) % Monocytes (Manual) (5.3-12.2) % Eosinophils (Manual) (0.8-7.0) % Basophils (Manual) (0.2-1.2) % Hypochromia Platelet Estimate (NORMAL) RBC Morphology Sodium (135-145) mmol/L Potassium (3.5-5.1) mmol/L Chloride (98-107) mmol/L Carbon Dioxide (22-30) mmol/L Anion Gap (5-15) MEQ/L BUN (9-20) mg/dL Creatinine (0.66-1.25) mg/dL Estimated GFR ML/MIN Glucose (74-106) mg/dL POC Glucometer 189 H 225 H (74 to 106) mg/dL Calcium (8.4-10.2) mg/dL Total Bilirubin (0.2-1.3) mg/dL AST (17-59) U/L ALT (0-50) U/L Alkaline Phosphatase (38-126) U/L Serum Total Protein (6.3-8.2) g/dL Albumin (3.5-5.0) g/dL C. difficile Screen NEGATIVE (NEGATIVE) C.difficile 027-NAP1-B1 PRESUMPTIVE NEGATIVE (NEGATIVE) ABO Group Rh Factor Antibody Screen (NEGATIVE) Crossmatch (COMPATIBLE) 01/26/24 01/26/24 01/26/24 Range/Units 05:54 05:54 07:07 WBC 3.2 L (4.23-9.07) x10^3/uL RBC 2.29 L (4.63-6.08) x10^6/uL Hgb 6.4 L* (13.7-17.5) g/dL Hct 20.8 L (40.1-51.0) % MCV 90.8 (79.0-92.2) fL MCH 27.9 (25.7-32.2) pg MCHC 30.8 L (32.3-36.5) g/dL RDW 19.5 H (11.6-14.4) % Plt Count 89 L (163-337) x10^3/uL MPV 10.2 (9.4-12.4) fL Segmented Neutrophils 79 H (34.0-67.9) % Lymphocytes (Manual) 14 L (21.8-53.1) % Monocytes (Manual) 3 L (5.3-12.2) % Eosinophils (Manual) 3 (0.8-7.0) % Basophils (Manual) 1 (0.2-1.2) % Hypochromia 3+ Platelet Estimate DECREASED (NORMAL) RBC Morphology ABNORMAL Sodium 138 (135-145) mmol/L Potassium 5.0 (3.5-5.1) mmol/L Chloride 111 H (98-107) mmol/L Carbon Dioxide 16 L* (22-30) mmol/L Anion Gap 15.8 H (5-15) MEQ/L BUN 33 H (9-20) mg/dL Creatinine 2.18 H (0.66-1.25) mg/dL Estimated GFR 28.6 ML/MIN Glucose 225 H (74-106) mg/dL POC Glucometer 220 H (74 to 106) mg/dL Calcium 8.7 (8.4-10.2) mg/dL Total Bilirubin 1.00 (0.2-1.3) mg/dL AST 37 (17-59) U/L ALT 27 (0-50) U/L Alkaline Phosphatase 53 (38-126) U/L Serum Total Protein 5.7 L (6.3-8.2) g/dL Albumin 2.8 L (3.5-5.0) g/dL C. difficile Screen (NEGATIVE) C.difficile 027-NAP1-B1 (NEGATIVE) ABO Group Rh Factor Antibody Screen (NEGATIVE) Crossmatch (COMPATIBLE) 01/26/24 01/26/24 Range/Units 07:15 11:26 WBC (4.23-9.07) x10^3/uL RBC (4.63-6.08) x10^6/uL Hgb (13.7-17.5) g/dL Hct (40.1-51.0) % MCV (79.0-92.2) fL MCH (25.7-32.2) pg MCHC (32.3-36.5) g/dL RDW (11.6-14.4) % Plt Count (163-337) x10^3/uL MPV (9.4-12.4) fL Segmented Neutrophils (34.0-67.9) % Lymphocytes (Manual) (21.8-53.1) % Monocytes (Manual) (5.3-12.2) % Eosinophils (Manual) (0.8-7.0) % Basophils (Manual) (0.2-1.2) % Hypochromia Platelet Estimate (NORMAL) RBC Morphology Sodium (135-145) mmol/L Potassium (3.5-5.1) mmol/L Chloride (98-107) mmol/L Carbon Dioxide (22-30) mmol/L Anion Gap (5-15) MEQ/L BUN (9-20) mg/dL Creatinine (0.66-1.25) mg/dL Estimated GFR ML/MIN Glucose (74-106) mg/dL POC Glucometer (74 to 106) mg/dL Calcium (8.4-10.2) mg/dL Total Bilirubin (0.2-1.3) mg/dL AST (17-59) U/L ALT (0-50) U/L Alkaline Phosphatase (38-126) U/L Serum Total Protein (6.3-8.2) g/dL Albumin (3.5-5.0) g/dL C. difficile Screen (NEGATIVE) C.difficile 027-NAP1-B1 (NEGATIVE) ABO Group A Rh Factor POSITIVE Antibody Screen NEGATIVE (NEGATIVE) Crossmatch COMPATIBLE COMPATIBLE (COMPATIBLE) Radiology Exams: Radiology Procedures Category Date Time Status CHEST 1 VIEW (PORTABLE) Stat Exams 01/25/24 12:13 Completed Multi-Disciplinary Progress Notes: Multi-Disciplinary Progress Notes 01/26/24 10:47 Case Management Note by Bettie Che NO CHANGE IN DC PLANS AT THIS TIME- [facility] UPDATED WELL Initialized on 01/26/24 10:47 - END OF NOTE 01/25/24 14:06 Case Management Note by Bettie Che NO CHANGE IN DC PLANS- PATIENT CONTINUES TO PLANS TO TRANSITION BACK TO [facility] TOMORROW WITH IV ANTIBIOTICS. S/W TIM AT [facility]- IV ANTIBIOTICS WILL BE AVAILABLE FOR DC TOMORROW. [facility] FAXED CLINICAL UPDATE WITH MICRO RESULTS AND PICC LINE INFO Initialized on 01/25/24 14:06 - END OF NOTE Assessment/Plan (1) Open wound of both legs with complication Current Visit: Yes Status: Acute Assessment & Plan: - IV antibiotics Linezoid and Zosyn - podiatry consult - Wound cultures from 01/13 show Pseudomonas BLLE - BC x2- negative - XR BLLE reviewed- negative for osteomyelitis - reviewed podiatry note and agree with plan of care. -open amputation great toe possible first metatarsal partial amputation left foot performed 01/19- Left lower medial wound + for pseudomonas - Right lateral gram negative sensitivity pending - Plan is for podiatry to close left foot Wednesday - possible dc Wednesday - Left greater toe culture + proteus mirabilis, Citrobactor Freundii, MRSA - Continue Zosyn and Zyvox 01/24: -PODS# 5 s/p closure today Plan for dc to [place] with oral Zyvox and cefepime per podiatry -dressing changes per podiatry -PICC placed today 01/25: -Paged Dr. Sheppard to discuss case and antibiotics - for now continue with zosyn/zyvox -Pain controlled -DC to SNF when stable Code(s): S81.801A - UNSPECIFIED OPEN WOUND, RIGHT LOWER LEG, INITIAL ENCOUNTER; S81.802A - UNSPECIFIED OPEN WOUND, LEFT LOWER LEG, INITIAL ENCOUNTER Anemia -CBC reviewed - HGB at 6.4 - will transfuse with 2 units LPRBC - Hold anticoags - CBC 1 hour s/p 2 unit (2) Cellulitis Current Visit: Yes Status: Acute Qualifiers: Site of cellulitis: extremity Site of cellulitis of extremity: lower extremity Assessment & Plan: - BLLE - Doxycycline IV started in ER - IV antibiotics Linezoid and Zosyn started IIP - podiatry consult - reviewed note - agree with plan - Wound cultures from 01/13 show Pseudomonas BLLE - repeat wound cultures completed in ER. - Wound cultures BLLE + for Pseudomonas and citrobacter - Continue Zosyn/Zyvox 01/24 -see open wound above Code(s): L03.90 - CELLULITIS, UNSPECIFIED (3) Amputated toe of left foot Current Visit: Yes Status: Acute Assessment & Plan: - open amputation great toe possible first metatarsal partial amputation left foot performed 01/19 - BLLE wrapped - LLE elevated - IV antibiotics zyvox/zosyn -Dressing CDI - Blood thinner restarted 01/21 01/24: -see open wound for plan Code(s): S98.132A - COMPLETE TRAUMATIC AMPUTATION OF ONE LEFT LESSER TOE, INIT (4) Hypothyroid Current Visit: Yes Status: Acute Assessment & Plan: - Continue synthroid - 11/30/23 TSH reviewed at 3.9- WNL Code(s): E03.9 - HYPOTHYROIDISM, UNSPECIFIED (5) Weakness Current Visit: Yes Status: Acute Assessment & Plan: - Per daughter, pt was up and walking with a cane in October - Lives in ECF - PT/OT eval and treat Code(s): R53.1 - WEAKNESS (6) BPH (benign prostatic hyperplasia) Current Visit: Yes Status: Acute Assessment & Plan: - Continue Flomax Code(s): N40.0 - BENIGN PROSTATIC HYPERPLASIA WITHOUT LOWER URINRY TRACT SYMP (7) Pancytopenia Current Visit: Yes Status: Acute Assessment & Plan: - Chronic per daughter - trend labs - Consider OP f/u with hematology Code(s): D61.818 - OTHER PANCYTOPENIA (8) Confusion Current Visit: Yes Status: Acute Assessment & Plan: - CXR and CT head reviewed. - Daughter reports pt has increased confusion with infections - resolved Code(s): R41.0 - DISORIENTATION, UNSPECIFIED (9) Hallucination Current Visit: Yes Status: Acute Assessment & Plan: - CT head negative for acute concern -No hallucination voiced today Code(s): R44.3 - HALLUCINATIONS, UNSPECIFIED (10) Hypokalemia Current Visit: Yes Status: Acute Assessment & Plan: -resolved after replenishment -continue to monitor renal/lytes -tele Code(s): E87.6 - HYPOKALEMIA (11) Metabolic acidosis Current Visit: Yes Status: Acute Assessment & Plan: -treated with oral bicarb -discontinued - resolved 01/25: -Patient with diarrhea - CO2 reviewed, at 16 today - will start oral bicarb Code(s): E87.20 - ACIDOSIS, UNSPECIFIED (12) Osteomyelitis of toe of left foot Current Visit: Yes Status: Acute Assessment & Plan: - as seen on MRI 01/20/24 - Podiatry following - see post op amputation plan above Code(s): M86.9 - OSTEOMYELITIS, UNSPECIFIED (13) Thrombocytopenia Current Visit: Yes Status: Acute Assessment & Plan: - Platelets - trend - Daughter does not want further workup for this or referral OP to oncology/hematology. (14) Acute on chronic renal failure Current Visit: No Status: Acute Qualifiers: Chronic kidney disease stage: stage 3 (moderate) Assessment & Plan: -baseline 1.75- trend -CMP reviewed - creat at 1.97<2.03 - Encouraged oral intake d/t fluid restrictions at hospital. - hold Lasix and Metolazone - NS @ 50 ml x1 500ml bag -01/21 01/24: -IVF - 500ml bag x 1 -CMP reviewed, creat at 2.3 > 1.97<2.03 - will monitor 01/25: -Improved Code(s): N17.9 - ACUTE KIDNEY FAILURE, UNSPECIFIED; N18.9 - CHRONIC KIDNEY DISEASE, UNSPECIFIED (15) CHF (congestive heart failure) Current Visit: No Status: Acute Assessment & Plan: - I&O's/Daily weights/elevated HOB - Trop negative x 3 - tele - BNP 70613 - CXR shows pulm edema - Echo 07/19/23- EF 15-20% IMPRESSION: 1. SEVERE LEFT VENTRICULAR SYSTOLIC DYSFUNCTION. 2. SEVERE ASSYMMETRIC LEFT VENTRICULAR HYPERTROPHY INVOLVING THE INTERVENTR ICULAR SEPTUM. 3. BORDERLINE LEFT ATRIAL DILATATION. 4. MILD TRICUSPID REGURGITATION. 5. MILD MITRAL REGURGITATION. 6. NORMAL RIGHT VENTRICULAR SYSTOLIC PRESSURE. - Continue Lasix 60mg PO BID- home dose when STEPHANY resolves - remains at room air -baseline Code(s): I50.9 - HEART FAILURE, UNSPECIFIED (16) Diabetes type 2, controlled Current Visit: No Status: Chronic Qualifiers: Assessment & Plan: - Reviewed from 11/30/23 A1C 7.64 - Continue accuchecks ac/hs, humalog SSI - low dose due to hypoglycemic episodes - Carb consistent diet - Hypoglycemia protocol added - Continue to monitor accuchecks Diarrhea -Cdiff negative -no abdominal pain/distention -no fever -immodium VTE: Xarelto PPI: Protonix Next of KIN: daughter D/C plan: per podiatry recs Code status: SCO/DNR Code(s): S81.801A - UNSPECIFIED OPEN WOUND, RIGHT LOWER LEG, INITIAL ENCOUNTER; S81.802A - UNSPECIFIED OPEN WOUND, LEFT LOWER LEG, INITIAL ENCOUNTER Code(s): S81.801A - UNSPECIFIED OPEN WOUND, RIGHT LOWER LEG, INITIAL ENCOUNTER; S81.802A - UNSPECIFIED OPEN WOUND, LEFT LOWER LEG, INITIAL ENCOUNTER (2) Cellulitis Current Visit: Yes Status: Acute Qualifiers: Site of cellulitis: extremity Site of cellulitis of extremity: lower extremity Code(s): L03.90 - CELLULITIS, UNSPECIFIED (3) Amputated toe of left foot Current Visit: Yes Status: Acute Code(s): S98.132A - COMPLETE TRAUMATIC AMPUTATION OF ONE LEFT LESSER TOE, INIT (4) Hypothyroid Current Visit: Yes Status: Acute Code(s): E03.9 - HYPOTHYROIDISM, UNSPECIFIED (5) Weakness Current Visit: Yes Status: Acute Code(s): R53.1 - WEAKNESS (6) BPH (benign prostatic hyperplasia) Current Visit: Yes Status: Acute Code(s): N40.0 - BENIGN PROSTATIC HYPERPLASIA WITHOUT LOWER URINRY TRACT SYMP (7) Pancytopenia Current Visit: Yes Status: Acute Code(s): D61.818 - OTHER PANCYTOPENIA (8) Confusion Current Visit: Yes Status: Acute Code(s): R41.0 - DISORIENTATION, UNSPECIFIED (9) Hallucination Current Visit: Yes Status: Acute Code(s): R44.3 - HALLUCINATIONS, UNSPECIFIED (10) Hypokalemia Current Visit: Yes Status: Acute Code(s): E87.6 - HYPOKALEMIA (11) Metabolic acidosis Current Visit: Yes Status: Acute Code(s): E87.20 - ACIDOSIS, UNSPECIFIED (12) Osteomyelitis of toe of left foot Current Visit: Yes Status: Acute Code(s): M86.9 - OSTEOMYELITIS, UNSPECIFIED (13) Thrombocytopenia Current Visit: Yes Status: Acute (14) Acute on chronic renal failure Current Visit: No Status: Acute Qualifiers: Chronic kidney disease stage: stage 3 (moderate) Code(s): N17.9 - ACUTE KIDNEY FAILURE, UNSPECIFIED; N18.9 - CHRONIC KIDNEY DISEASE, UNSPECIFIED (15) CHF (congestive heart failure) Current Visit: No Status: Acute Code(s): I50.9 - HEART FAILURE, UNSPECIFIED (16) Diabetes type 2, controlled Current Visit: No Status: Chronic Qualifiers: Code(s): E11.9 - TYPE 2 DIABETES MELLITUS WITHOUT COMPLICATIONS (17) Anemia Current Visit: Yes Status: Acute Code(s): D64.9 - ANEMIA, UNSPECIFIED (18) Diarrhea Current Visit: Yes Status: Acute Code(s): R19.7 - DIARRHEA, UNSPECIFIED
[2024-01-26 13:29] LABS: 027 TOX PROD PRESUMPTIVE NEGATIVE (NEGATIVE); TOXIGENIC C. DIFF ORG NEGATIVE (NEGATIVE)
[2024-01-26 15:04] LABS: Hematocrit 27.4 % (40.1-51.0)
[2024-01-26 15:06] LABS: Hemoglobin 8.7 g/dL (13.7-17.5)
[2024-01-26 15:15] LABS: ALBUMIN 2.9 g/dL (3.5-5.0); ANION GAP 17.9 MEQ/L (5-15); BILIRUBIN,TOTAL 0.8 mg/dL (0.2-1.3); Calcium 8.6 mg/dL (8.4-10.2); Creatinine 1 2.12 mg/dL (0.66-1.25); EST GLOMERULAR FILTRATION RATE 29.6 ML/MIN
[2024-01-26] MEDS: Sodium Bicarbonate 50 MEQ/50 ML VIAL*** 150 MEQ in Dextrose 5%/Water IV Soln. 1000 ML 1... IV SCH (16:16)
[2024-01-26] MEDS: IMODIUM 2 MG PO PRN (16:52)
--- NOTE | 2024-01-27 05:11 | PCM.NOTE ---
Date and Time: 01/27/24 0509 Subjective Assessment: is a 88 year old male with PMHX of CVA 2006, CHF, hyperlipidemia, HTN, MD, Type II DM, OA, CKD, and CAD. Pt presented to ED 01/18/24 via EMS from the [facility] for evaluation of abnormal labs, possible lower extremity infection confusion and hallucination. Patient states he sees little girls floating but he knows they are not real. Patient is cognizant and aware of the hallucinations. Daughter states he developed green drainage from BLLE01/14/24. He then became confused the next day. She reports he often has confusion with extreme infections. Wound cultures done 01/14/24 at [facility] show pseudomas for BLLE. He had not been on any antibiotics until today. Repeat wound cultures completed in ER. BC [id number]. Pt started on IV antibiotics and changed to broad spectrum antibiotics IP. Podiatry consulted and XR's of BLLE ordered. IV lasix gave in ER for CHF exacerbation as seen on CXR. Per pt's daughter pt had an angiogram on and needs further surgery of LLE for better blood flow. This is to be done per [facility] M[facility] Dr. Perez. Pt follows Dr. Huggins for nephrology. Daughter would also like pt to work with PT/OT a while here as pt was up and walking with a cane in October. Podiatry consulted and open amputation great toe possible first metatarsal partial amputation left foot performed 01/19. Culture from toe wound shows MRSA. Continue Zosyn and Zyvox. Plan is to close wound on Wednesday, then home on possibly Wednesday on oral zyvox and IV cefepime. 01/24/24: Met and examined patient bedside. States he is feeling better although he is having some pain at left foot surgical site. Blood glucose level was low this morning. Will place on low SSI/ dc humalog/meal insulin with close monitoring. Creat is improving. Plan for wound closure tomorrow and possible discharge Wednesday to [place] with abx. Denies fever,cough, sob, cp, abdominal pain, MCKEON, dizziness, N/V/D. 01/24: Met with patient bedside. He is somewhat drowsy s/p closure of surgical wound today. No complaints of pain. Plan is for discharge tomorrow to [facility] with IV cefepime and oral zyvox with podiatry following as OP. PICC placed. 01/26/24: POD#1 s/p wound closure. Patient is more alert today and states he is doing well. Pain is about 5/10 on numerical pain scale. Discussed labs with patient and need for blood transfusion with hgb at 6.4, patient is agreeable and will receive 2 units today. Will contact Dr. Sheppard (ID) and discuss abx options as he is very familiar with patient and will need ID follow up as OP. Patient also acidotic this morning secondary to bouts of diarrhea. CDiff obtained and negative. Will start oral bicarb and immodium. Objective Exam Wound Assessment: Skin/Wound Assessment Wound/Incision Assessment Start: 01/18/24 18:05 Text: Status: Active Freq: Q6H Protocol: Document 01/27/24 02:00 SC (Rec: 01/27/24 02:17 SC [id number]) Wound/Incision Assessment Left Lower Calf Wound Assessment Shift Assessment Wound Type UNABLE TO ASSESS Wound Stage Non Pressure Wound Dressing Status Dry & Intact Drainage Amount None Drainage Odor None/Absent Primary Dressing UNNABOOT Comment Dressing CDI Right Lower Calf Wound Assessment Shift Assessment Wound Type UNABLE TO ASSESS Wound Stage Non Pressure Wound Dressing Status Dry & Intact Drainage Amount None Primary Dressing UNNABOOT Comment Dressing CDI Bilateral Buttocks Wound Assessment Shift Assessment Wound Type healing shearing Drainage Amount None General Appearance Reddened Surrounding Tissue [place] Comment Healing shearing, redness noted but all areas blanchable . Barrier and zinc oxide cream being applied PRN with moisés care Objective Data Vital Signs: Vital Signs - 24 hr Temp Pulse Resp BP Pulse Ox 01/27/24 04:00 97.2 F 79 24 119/68 96 01/26/24 23:27 96.9 F 86 16 137/77 95 01/26/24 20:10 97.3 F 90 14 134/74 94 L 01/26/24 15:00 96.3 F 82 18 120/72 100 01/26/24 11:00 97.1 F 88 18 118/63 98 01/26/24 07:00 97.5 F 88 16 163/68 99 Pain Assessment - Last Documented Pain Intensity 2 Intake and Output: Intake & Output 01/24/24 01/25/24 01/26/24 01/27/24 11:59 11:59 11:59 11:59 Intake Total 3692 3438 313 3218 Output Total 550 500 Balance 3148 1477 432 1458 Weight 87 kg Lab Results: Lab Results-Last 24 Hours 01/26/24 01/26/24 01/26/24 Range/Units 05:54 05:54 07:07 WBC 3.2 L (4.23-9.07) x10^3/uL RBC 2.29 L (4.63-6.08) x10^6/uL Hgb 6.4 L* (13.7-17.5) g/dL Hct 20.8 L (40.1-51.0) % MCV 90.8 (79.0-92.2) fL MCH 27.9 (25.7-32.2) pg MCHC 30.8 L (32.3-36.5) g/dL RDW 19.5 H (11.6-14.4) % Plt Count 89 L (163-337) x10^3/uL MPV 10.2 (9.4-12.4) fL Segmented Neutrophils 79 H (34.0-67.9) % Lymphocytes (Manual) 14 L (21.8-53.1) % Monocytes (Manual) 3 L (5.3-12.2) % Eosinophils (Manual) 3 (0.8-7.0) % Basophils (Manual) 1 (0.2-1.2) % Hypochromia 3+ Platelet Estimate DECREASED (NORMAL) RBC Morphology ABNORMAL Sodium 138 (135-145) mmol/L Potassium 5.0 (3.5-5.1) mmol/L Chloride 111 H (98-107) mmol/L Carbon Dioxide 16 L* (22-30) mmol/L Anion Gap 15.8 H (5-15) MEQ/L BUN 33 H (9-20) mg/dL Creatinine 2.18 H (0.66-1.25) mg/dL Estimated GFR 28.6 ML/MIN Glucose 225 H (74-106) mg/dL POC Glucometer 220 H (74 to 106) mg/dL Calcium 8.7 (8.4-10.2) mg/dL Total Bilirubin 1.00 (0.2-1.3) mg/dL AST 37 (17-59) U/L ALT 27 (0-50) U/L Alkaline Phosphatase 53 (38-126) U/L Serum Total Protein 5.7 L (6.3-8.2) g/dL Albumin 2.8 L (3.5-5.0) g/dL C. difficile Screen (NEGATIVE) C.difficile 027-NAP1-B1 (NEGATIVE) ABO Group Rh Factor Antibody Screen (NEGATIVE) Crossmatch (COMPATIBLE) 01/26/24 01/26/24 01/26/24 Range/Units 07:15 11:26 12:05 WBC (4.23-9.07) x10^3/uL RBC (4.63-6.08) x10^6/uL Hgb (13.7-17.5) g/dL Hct (40.1-51.0) % MCV (79.0-92.2) fL MCH (25.7-32.2) pg MCHC (32.3-36.5) g/dL RDW (11.6-14.4) % Plt Count (163-337) x10^3/uL MPV (9.4-12.4) fL Segmented Neutrophils (34.0-67.9) % Lymphocytes (Manual) (21.8-53.1) % Monocytes (Manual) (5.3-12.2) % Eosinophils (Manual) (0.8-7.0) % Basophils (Manual) (0.2-1.2) % Hypochromia Platelet Estimate (NORMAL) RBC Morphology Sodium (135-145) mmol/L Potassium (3.5-5.1) mmol/L Chloride (98-107) mmol/L Carbon Dioxide (22-30) mmol/L Anion Gap (5-15) MEQ/L BUN (9-20) mg/dL Creatinine (0.66-1.25) mg/dL Estimated GFR ML/MIN Glucose (74-106) mg/dL POC Glucometer 341 H (74 to 106) mg/dL Calcium (8.4-10.2) mg/dL Total Bilirubin (0.2-1.3) mg/dL AST (17-59) U/L ALT (0-50) U/L Alkaline Phosphatase (38-126) U/L Serum Total Protein (6.3-8.2) g/dL Albumin (3.5-5.0) g/dL C. difficile Screen (NEGATIVE) C.difficile 027-NAP1-B1 (NEGATIVE) ABO Group A Rh Factor POSITIVE Antibody Screen NEGATIVE (NEGATIVE) Crossmatch COMPATIBLE COMPATIBLE (COMPATIBLE) 01/26/24 01/26/24 01/26/24 Range/Units 15:02 15:02 16:42 WBC (4.23-9.07) x10^3/uL RBC (4.63-6.08) x10^6/uL Hgb 8.7 L D (13.7-17.5) g/dL Hct 27.4 L (40.1-51.0) % MCV (79.0-92.2) fL MCH (25.7-32.2) pg MCHC (32.3-36.5) g/dL RDW (11.6-14.4) % Plt Count (163-337) x10^3/uL MPV (9.4-12.4) fL Segmented Neutrophils (34.0-67.9) % Lymphocytes (Manual) (21.8-53.1) % Monocytes (Manual) (5.3-12.2) % Eosinophils (Manual) (0.8-7.0) % Basophils (Manual) (0.2-1.2) % Hypochromia Platelet Estimate (NORMAL) RBC Morphology Sodium 138 (135-145) mmol/L Potassium 5.0 (3.5-5.1) mmol/L Chloride 109 H (98-107) mmol/L Carbon Dioxide 16 L* (22-30) mmol/L Anion Gap 17.9 H (5-15) MEQ/L BUN 34 H (9-20) mg/dL Creatinine 2.12 H (0.66-1.25) mg/dL Estimated GFR 29.6 ML/MIN Glucose 321 H (74-106) mg/dL POC Glucometer 327 H (74 to 106) mg/dL Calcium 8.6 (8.4-10.2) mg/dL Total Bilirubin 0.80 (0.2-1.3) mg/dL AST 39 (17-59) U/L ALT 32 (0-50) U/L Alkaline Phosphatase 50 (38-126) U/L Serum Total Protein 6.0 L (6.3-8.2) g/dL Albumin 2.9 L (3.5-5.0) g/dL C. difficile Screen (NEGATIVE) C.difficile 027-NAP1-B1 (NEGATIVE) ABO Group Rh Factor Antibody Screen (NEGATIVE) Crossmatch (COMPATIBLE) 01/26/24 01/26/24 Range/Units 20:37 Unknown WBC (4.23-9.07) x10^3/uL RBC (4.63-6.08) x10^6/uL Hgb (13.7-17.5) g/dL Hct (40.1-51.0) % MCV (79.0-92.2) fL MCH (25.7-32.2) pg MCHC (32.3-36.5) g/dL RDW (11.6-14.4) % Plt Count (163-337) x10^3/uL MPV (9.4-12.4) fL Segmented Neutrophils (34.0-67.9) % Lymphocytes (Manual) (21.8-53.1) % Monocytes (Manual) (5.3-12.2) % Eosinophils (Manual) (0.8-7.0) % Basophils (Manual) (0.2-1.2) % Hypochromia Platelet Estimate (NORMAL) RBC Morphology Sodium (135-145) mmol/L Potassium (3.5-5.1) mmol/L Chloride (98-107) mmol/L Carbon Dioxide (22-30) mmol/L Anion Gap (5-15) MEQ/L BUN (9-20) mg/dL Creatinine (0.66-1.25) mg/dL Estimated GFR ML/MIN Glucose (74-106) mg/dL POC Glucometer 296 H (74 to 106) mg/dL Calcium (8.4-10.2) mg/dL Total Bilirubin (0.2-1.3) mg/dL AST (17-59) U/L ALT (0-50) U/L Alkaline Phosphatase (38-126) U/L Serum Total Protein (6.3-8.2) g/dL Albumin (3.5-5.0) g/dL C. difficile Screen NEGATIVE (NEGATIVE) C.difficile 027-NAP1-B1 PRESUMPTIVE NEGATIVE (NEGATIVE) ABO Group Rh Factor Antibody Screen (NEGATIVE) Crossmatch (COMPATIBLE) Radiology Exams: Radiology Procedures Category Date Time Status CHEST 1 VIEW (PORTABLE) Stat Exams 01/25/24 12:13 Completed FLUOROSCOPY UP TO 1 HR Routine Exams 01/25/24 06:13 Completed FOOT (MINIMUM 3 VIEWS) Routine Exams 01/25/24 06:13 Completed Multi-Disciplinary Progress Notes: Multi-Disciplinary Progress Notes 01/26/24 10:47 Case Management Note by Bettie Che NO CHANGE IN DC PLANS AT THIS TIME- IRVIN UPDATED WELL Initialized on 01/26/24 10:47 - END OF NOTE Assessment/Plan (1) Open wound of both legs with complication Current Visit: Yes Status: Acute Assessment & Plan: - IV antibiotics Linezoid and Zosyn - podiatry consult - Wound cultures from 01/13 show Pseudomonas BLLE - BC x2- negative - XR BLLE reviewed- negative for osteomyelitis - reviewed podiatry note and agree with plan of care. -open amputation great toe possible first metatarsal partial amputation left foot performed 01/19- Left lower medial wound + for pseudomonas - Right lateral gram negative sensitivity pending - Plan is for podiatry to close left foot Wednesday - possible dc Wednesday - Left greater toe culture + proteus mirabilis, Citrobactor Freundii, MRSA - Continue Zosyn and Zyvox 01/24: -PODS# 5 s/p closure today Plan for dc to [facility] with oral Zyvox and cefepime per podiatry -dressing changes per podiatry -PICC placed today 01/25: -Paged Dr. Sheppard to discuss case and antibiotics - for now continue with zosyn/ zyvox -Pain controlled -DC to SNF when stable Code(s): S81.801A - UNSPECIFIED OPEN WOUND, RIGHT LOWER LEG, INITIAL ENCOUNTER; S81.802A - UNSPECIFIED OPEN WOUND, LEFT LOWER LEG, INITIAL ENCOUNTER Anemia -CBC reviewed - HGB at 6.4 - will transfuse with 2 units LPRBC - Hold anticoags - CBC 1 hour s/p 2 unit (2) Cellulitis Current Visit: Yes Status: Acute Qualifiers: Site of cellulitis: extremity Site of cellulitis of extremity: lower extremity Assessment & Plan: - BLLE - Doxycycline IV started in ER - IV antibiotics Linezoid and Zosyn started IIP - podiatry consult - reviewed note - agree with plan - Wound cultures from 01/13 show Pseudomonas BLLE - repeat wound cultures completed in ER. - Wound cultures BLLE + for Pseudomonas and citrobacter - Continue Zosyn/Zyvox 01/24 -see open wound above Code(s): L03.90 - CELLULITIS, UNSPECIFIED (3) Amputated toe of left foot Current Visit: Yes Status: Acute Assessment & Plan: - open amputation great toe possible first metatarsal partial amputation left foot performed 01/19 - BLLE wrapped - LLE elevated - IV antibiotics zyvox/zosyn -Dressing CDI - Blood thinner restarted 01/21 01/24: -see open wound for plan Code(s): S98.132A - COMPLETE TRAUMATIC AMPUTATION OF ONE LEFT LESSER TOE, INIT (4) Hypothyroid Current Visit: Yes Status: Acute Assessment & Plan: - Continue synthroid - 11/30/23 TSH reviewed at 3.9- WNL Code(s): E03.9 - HYPOTHYROIDISM, UNSPECIFIED (5) Weakness Current Visit: Yes Status: Acute Assessment & Plan: - Per daughter, pt was up and walking with a cane in October - Lives in ECF - PT/OT eval and treat Code(s): R53.1 - WEAKNESS (6) BPH (benign prostatic hyperplasia) Current Visit: Yes Status: Acute Assessment & Plan: - Continue Flomax Code(s): N40.0 - BENIGN PROSTATIC HYPERPLASIA WITHOUT LOWER URINRY TRACT SYMP (7) Pancytopenia Current Visit: Yes Status: Acute Assessment & Plan: - Chronic per daughter - trend labs - Consider OP f/u with hematology Code(s): D61.818 - OTHER PANCYTOPENIA (8) Confusion Current Visit: Yes Status: Acute Assessment & Plan: - CXR and CT head reviewed. - Daughter reports pt has increased confusion with infections - resolved Code(s): R41.0 - DISORIENTATION, UNSPECIFIED (9) Hallucination Current Visit: Yes Status: Acute Assessment & Plan: - CT head negative for acute concern -No hallucination voiced today Code(s): R44.3 - HALLUCINATIONS, UNSPECIFIED (10) Hypokalemia Current Visit: Yes Status: Acute Assessment & Plan: -resolved after replenishment -continue to monitor renal/lytes -tele Code(s): E87.6 - HYPOKALEMIA (11) Metabolic acidosis Current Visit: Yes Status: Acute Assessment & Plan: -treated with oral bicarb -discontinued - resolved 01/25: -Patient with diarrhea - CO2 reviewed, at 16 today - will start oral bicarb Code(s): E87.20 - ACIDOSIS, UNSPECIFIED (12) Osteomyelitis of toe of left foot Current Visit: Yes Status: Acute Assessment & Plan: - as seen on MRI 01/20/24 - Podiatry following - see post op amputation plan above Code(s): M86.9 - OSTEOMYELITIS, UNSPECIFIED (13) Thrombocytopenia Current Visit: Yes Status: Acute Assessment & Plan: - Platelets - trend - Daughter does not want further workup for this or referral OP to oncology/hematology. (14) Acute on chronic renal failure Current Visit: No Status: Acute Qualifiers: Chronic kidney disease stage: stage 3 (moderate) Assessment & Plan: -baseline 1.75- trend -CMP reviewed - creat at 1.97<2.03 - Encouraged oral intake d/t fluid restrictions at hospital. - hold Lasix and Metolazone - NS @ 50 ml x1 500ml bag -01/21 01/24: -IVF - 500ml bag x 1 -CMP reviewed, creat at 2.3 > 1.97<2.03 - will monitor 01/25: -Improved Code(s): N17.9 - ACUTE KIDNEY FAILURE, UNSPECIFIED; N18.9 - CHRONIC KIDNEY DISEASE, UNSPECIFIED (15) CHF (congestive heart failure) Current Visit: No Status: Acute Assessment & Plan: - I&O's/Daily weights/elevated HOB - Trop negative x 3 - tele - BNP 09939 - CXR shows pulm edema - Echo 07/19/23- EF 15-20% IMPRESSION: 1. SEVERE LEFT VENTRICULAR SYSTOLIC DYSFUNCTION. 2. SEVERE ASSYMMETRIC LEFT VENTRICULAR HYPERTROPHY INVOLVING THE INTERVENTRICULAR SEPTUM. 3. BORDERLINE LEFT ATRIAL DILATATION. 4. MILD TRICUSPID REGURGITATION. 5. MILD MITRAL REGURGITATION. 6. NORMAL RIGHT VENTRICULAR SYSTOLIC PRESSURE. - Continue Lasix 60mg PO BID- home dose when STEPHANY resolves - remains at room air -baseline Code(s): I50.9 - HEART FAILURE, UNSPECIFIED (16) Diabetes type 2, controlled Current Visit: No Status: Chronic Qualifiers: Assessment & Plan: - Reviewed from 11/30/23 A1C 7.64 - Continue accuchecks ac/hs, humalog SSI - low dose due to hypoglycemic episodes - Carb consistent diet - Hypoglycemia protocol added - Continue to monitor accuchecks Diarrhea -Cdiff negative -no abdominal pain/distention -no fever -immodium VTE: Xarelto PPI: Protonix Next of KIN: daughter D/C plan: per podiatry recs Code status: SCO/DNR Code(s): S81.801A - UNSPECIFIED OPEN WOUND, RIGHT LOWER LEG, INITIAL ENCOUNTER; S81.802A - UNSPECIFIED OPEN WOUND, LEFT LOWER LEG, INITIAL ENCOUNTER (2) Cellulitis Current Visit: Yes Status: Acute Qualifiers: Site of cellulitis: extremity Site of cellulitis of extremity: lower extremity Code(s): L03.90 - CELLULITIS, UNSPECIFIED (3) Amputated toe of left foot Current Visit: Yes Status: Acute Code(s): S98.132A - COMPLETE TRAUMATIC AMPUTATION OF ONE LEFT LESSER TOE, INIT (4) Hypothyroid Current Visit: Yes Status: Acute Code(s): E03.9 - HYPOTHYROIDISM, UNSPECIFIED (5) Weakness Current Visit: Yes Status: Acute Code(s): R53.1 - WEAKNESS (6) BPH (benign prostatic hyperplasia) Current Visit: Yes Status: Acute Code(s): N40.0 - BENIGN PROSTATIC HYPERPLASIA WITHOUT LOWER URINRY TRACT SYMP (7) Pancytopenia Current Visit: Yes Status: Acute Code(s): D61.818 - OTHER PANCYTOPENIA (8) Confusion Current Visit: Yes Status: Acute Code(s): R41.0 - DISORIENTATION, UNSPECIFIED (9) Hallucination Current Visit: Yes Status: Acute Code(s): R44.3 - HALLUCINATIONS, UNSPECIFIED (10) Hypokalemia Current Visit: Yes Status: Acute Code(s): E87.6 - HYPOKALEMIA (11) Metabolic acidosis Current Visit: Yes Status: Acute Code(s): E87.20 - ACIDOSIS, UNSPECIFIED (12) Osteomyelitis of toe of left foot Current Visit: Yes Status: Acute Code(s): M86.9 - OSTEOMYELITIS, UNSPECIFIED (13) Thrombocytopenia Current Visit: Yes Status: Acute (14) Acute on chronic renal failure Current Visit: No Status: Acute Qualifiers: Chronic kidney disease stage: stage 3 (moderate) Code(s): N17.9 - ACUTE KIDNEY FAILURE, UNSPECIFIED; N18.9 - CHRONIC KIDNEY DISEASE, UNSPECIFIED (15) CHF (congestive heart failure) Current Visit: No Status: Acute Code(s): I50.9 - HEART FAILURE, UNSPECIFIED (16) Diabetes type 2, controlled Current Visit: No Status: Chronic Qualifiers: Code(s): E11.9 - TYPE 2 DIABETES MELLITUS WITHOUT COMPLICATIONS (17) Anemia Current Visit: Yes Status: Acute Code(s): D64.9 - ANEMIA, UNSPECIFIED (18) Diarrhea Current Visit: Yes Status: Acute Code(s): R19.7 - DIARRHEA, UNSPECIFIED
[2024-01-27 05:50] LABS: BASOPHIL % 0.5 % (0.2-1.2); Basophil (Absolute #) 0.02 x10^3/uL (0.01-0.08); Eosinophil % 4.7 % (0.8-7.0); Eosinophil (Absolute #) 0.17 x10^3/uL (0.04-0.54); Hematocrit 25.7 % (40.1-51.0); Hemoglobin 8.4 g/dL (13.7-17.5); IMMATURE GRAN # 0.01 x10^3u/L (0.001-0.031); IMMATURE GRAN % 0.3 % (0.001-0.429); Lymphocyte (Absolute #) 0.49 x10^3/uL (1.32-3.57); Lymphocytes % 13.5 % (21.8-53.1); Mean Cell Volume 88.3 fL (79.0-92.2); Mean Corpuscular Hemoglobin 28.9 pg (25.7-32.2); Mean Corpuscular Hgb Concent. 32.7 g/dL (32.3-36.5); Mean Platelet Volume 9.7 fL (9.4-12.4); Monocyte (Absolute #) 0.15 x10^3/uL (0.30-0.82); Monocytes % 4.1 % (5.3-12.2); Neutrophil % 76.9 % (34.0-67.9); Platelet Count 65 x10^3/uL (163-337); Red Blood Count 2.91 x10^6/uL (4.63-6.08); Red Cell Distribution Width 18.1 % (11.6-14.4); White Blood Count 3.6 x10^3/uL (4.23-9.07)
[2024-01-27 06:04] LABS: ALBUMIN 2.8 g/dL (3.5-5.0); ANION GAP 14.1 MEQ/L (5-15); BILIRUBIN,TOTAL 1.3 mg/dL (0.2-1.3); Calcium 8.9 mg/dL (8.4-10.2); Creatinine 1 2.09 mg/dL (0.66-1.25); EST GLOMERULAR FILTRATION RATE 30.1 ML/MIN; Potassium 4.8 mmol/L (3.5-5.1); Total Protein 5.8 g/dL (6.3-8.2)
[2024-01-27 07:21] VITALS: RESP 18
[2024-01-27] MEDS ORDERED: PHARMACY RENAL DOSING MC ONE (07:28)
[2024-01-27 07:40] LABS: Slide Review 1 YES
[2024-01-27] MEDS: XARELTO 10 MG TABLET PO SCH (10:48)
[2024-01-27] MEDS: SODIUM BICARBONATE PO SCH (10:49)
[2024-01-27] MEDS: MAXIPIME 1 GM** 1 G in Dextrose 5%/Water IV Soln. 100ML PLUS BAG 100 ML IV SCH (11:42)
--- NOTE | 2024-01-27 11:53 | PCM.DS ---
Discharge Summary Date of Admission: 01/19/24 15:23 Date of Discharge: 01/27/24 Admitting Physician: AMIE HUBER MD Consults: Consults on Case 01/18/24 18:32 Consult Podiatry ROUTINE 01/22/24 13:31 Notify Physician ROUTINE Primary Care Provider: [facility] Allergies Allergies sulfamethoxazole [From Bactrim] Allergy (Intermediate, Verified 01/18/24 11:43) Swelling trimethoprim [From Bactrim] Allergy (Intermediate, Verified 01/18/24 11:43) Swelling Sulfa (Sulfonamide Antibiotics) Adverse Reaction (Intermediate, Verified 01/18/24 11:43) Swelling quetiapine [From Seroquel] Adverse Reaction (Verified 01/18/24 19:17) RESPIRATORY DEPRESSION Hospital Summary - Hospital Course Hospital Course: is a 88 year old male with PMHX of CVA 2005, CHF, hyperlipidemia, HTN, LA, Type II DM, OA, CKD, and CAD. Pt presented to ED 01/18/24 via EMS from the [facility] for evaluation of abnormal labs, possible lower extremity infection confusion and hallucination. Patient states he sees little girls floating but he knows they are not real. Patient is cognizant and aware of the h allucinations. Daughter states he developed green drainage from BLLE01/14/24. He then became confused the next day. She reports he often has confusion with extreme infections. Wound cultures done 01/14/24 at [facility] show pseudomas for BLLE. He had not been on any antibiotics until today. Repeat wound cultures completed in ER. BC [id number]. Pt started on IV antibiotics and changed to broad spectrum antibiotics IP. Podiatry consulted and XR's of BLLE ordered. IV lasix gave in ER for CHF exacerbation as seen on CXR. Per pt's daughter pt had an angiogram on and needs further surgery of LLE for better blood flow. This is to be done per [employer] Dr. Perez. Pt follows Dr. Huggins for neph rology. Daughter would also like pt to work with PT/OT a while here as pt was up and walking with a cane in October. Podiatry consulted and open amputation great toe possible first metatarsal partial amputation left foot performed 01/19. Culture from toe wound shows MRSA. Continue Zosyn and Zyvox. Plan is to close wound on Wednesday, then home on possibly Wednesday on oral zyvox and IV cefepime. 01/24/24: Met and examined patient bedside. States he is feeling better although he is having some pain at left foot surgical site. Blood glucose level was low this morning. Will place on low SSI/ dc humalog/meal insulin with close monitoring. Creat is improving. Plan for wound closure tomorrow and possible discharge Wednesday to [place] with abx. Denies fever,cough, sob, cp, abdominal pain, MCKEON, dizziness, N/V/D. 01/24: Met with patient bedside. He is somewhat drowsy s/p closure of surgical wound today. No complaints of pain. Plan is for discharge tomorrow to [facility] with IV cefepime and oral zyvox with podiatry following as OP. PICC placed. 01/26/24: POD#1 s/p wound closure. Patient is more alert today and states he is doing well. Pain is about 5/10 on numerical pain scale. Discussed labs with patient and need for blood transfusion with hgb at 6.4, patient is agreeable and will receive 2 units today. Will contact Dr. Angel (ID) and discuss abx options as he is very familiar with patient and will need ID follow up as OP. Patient also acidotic this morning secondary to bouts of diarrhea. CDiff obtained and negative. Will start oral bicarb and immodium. 01/27/24: POD#2 s/p wound closure. Back to baseline mentation A&O x 3 on interview. Alert. Pain is rated at 2/10 this morning. Hgb stable this morning s/p transfusion of 2 units LPRBC. Discussed case with Podiatry - patient is clear for discharge. He will discharge on Zyvox - po and Cefepime IV with renal dosing per pharmacy based on culture results and sensitivity. Anticoagulation has been resumed. Acidosis improved. Patient will need to follow up with infectious disease as well as nephrology as OP. Discharge Note New Medications: Zyvox/cefepime Follow Up: pcp/ID Latest Assessment & Plan (1) Open wound of both legs with complication Current Visit: Yes Status: Acute Assessment & Plan: - IV antibiotics Linezoid and Zosyn - podiatry consult - Wound cultures from 01/13 show Pseudomonas BLLE - BC x2- negative - XR BLLE reviewed- negative for osteomyelitis - reviewed podiatry note and agree with plan of care. -open amputation great toe possible first metatarsal partial amputation left marcia t performed 01/19- Left lower medial wound + for pseudomonas - Right lateral gram negative sensitivity pending - Plan is for podiatry to close left foot Wednesday - possible dc Wednesday - Left greater toe culture + proteus mirabilis, Citrobactor Freundii, MRSA - Continue Zosyn and Zyvox 01/24: -PODS# 5 s/p closure today Plan for dc to [place] with oral Zyvox and cefepime per podiatry -dressing changes per podiatry -PICC placed today 01/25: -Paged Dr. Angel to discuss case and antibiotics - for now continue with zosyn/zyvox -Pain controlled -DC to SNF when stable Code(s): S81.801A - UNSPECIFIED OPEN WOUND, RIGHT LOWER LEG, INITIAL ENCOUNTER; S81.802A - UNSPECIFIED OPEN WOUND, LEFT LOWER LEG, INITIAL ENCOUNTER Anemia -CBC reviewed - HGB at 6.4 - will transfuse with 2 units LPRBC - Hold anticoags - CBC 1 hour s/p 2 unit 01/26: -stable at 8.4 (2) Cellulitis Current Visit: Yes Status: Acute Qualifiers: Site of cellulitis: extremity Site of cellulitis of extremity: lower extremity Assessment & Plan: - BLLE - Doxycycline IV started in ER - IV antibiotics Linezoid and Zosyn started IIP - podiatry consult - reviewed note - agree with plan - Wound cultures from 01/13 show Pseudomonas BLLE - repeat wound cultures completed in ER. - Wound cultures BLLE + for Pseudomonas and citrobacter - Continue Zosyn/Zyvox 01/24 -see open wound above Code(s): L03.90 - CELLULITIS, UNSPECIFIED (3) Amputated toe of left foot Current Visit: Yes Status: Acute Assessment & Plan: - open amputation great toe possible first metatarsal partial amputation left foot performed 01/19 - BLLE wrapped - LLE elevated - IV antibiotics zyvox/zosyn -Dressing CDI - Blood thinner restarted 01/21 01/24: -see open wound for plan Code(s): S98.132A - COMPLETE TRAUMATIC AMPUTATION OF ONE LEFT LESSER TOE, INIT (4) Hypothyroid Current Visit: Yes Status: Acute Assessment & Plan: - Continue synthroid - 11/30/23 TSH reviewed at 3.9- WNL Code(s): E03.9 - HYPOTHYROIDISM, UNSPECIFIED (5) Weakness Current Visit: Yes Status: Acute Assessment & Plan: - Per daughter, pt was up and walking with a cane in October - Lives in ECF - PT/OT eval and treat Code(s): R53.1 - WEAKNESS (6) BPH (benign prostatic hyperplasia) Current Visit: Yes Status: Acute Assessment & Plan: - Continue Flomax Code(s): N40.0 - BENIGN PROSTATIC HYPERPLASIA WITHOUT LOWER URINRY TRACT SYMP (7) Pancytopenia Current Visit: Yes Status: Acute Assessment & Plan: - Chronic per daughter - trend labs - Consider OP f/u with hematology Code(s): D61.818 - OTHER PANCYTOPENIA (8) Confusion Current Visit: Yes Status: Acute Assessment & Plan: - CXR and CT head reviewed. - Daughter reports pt has increased confusion with infections - resolved Code(s): R41.0 - DISORIENTATION, UNSPECIFIED (9) Hallucination Current Visit: Yes Status: Acute Assessment & Plan: - CT head negative for acute concern -No hallucination voiced today Code(s): R44.3 - HALLUCINATIONS, UNSPECIFIED (10) Hypokalemia Current Visit: Yes Status: Acute Assessment & Plan: -resolved after replenishment -continue to monitor renal/lytes -tele Code(s): E87.6 - HYPOKALEMIA (11) Metabolic acidosis Current Visit: Yes Status: Acute Assessment & Plan: -treated with oral bicarb -discontinued - resolved 01/25: -Patient with diarrhea - CO2 reviewed, at 16 today - will start oral bicarb 01/26: -improving Code(s): E87.20 - ACIDOSIS, UNSPECIFIED (12) Osteomyelitis of toe of left foot Current Visit: Yes Status: Acute Assessment & Plan: - as seen on MRI 01/20/24 - Podiatry following - see post op amputation plan above Code(s): M86.9 - OSTEOMYELITIS, UNSPECIFIED (13) Thrombocytopenia Current Visit: Yes Status: Acute Assessment & Plan: - Platelets - trend - Daughter does not want further workup for this or referral OP to oncology/hematology. (14) Acute on chronic renal failure Current Visit: No Status: Acute Qualifiers: Chronic kidney disease stage: stage 3 (moderate) Assessment & Plan: -baseline 1.75- trend -CMP reviewed - creat at 1.97<2.03 - Encouraged oral intake d/t fluid restrictions at hospital. - hold Lasix and Metolazone - NS @ 50 ml x1 500ml bag -01/21 01/24: -IVF - 500ml bag x 1 -CMP reviewed, creat at 2.3 > 1.97<2.03 - will monitor 01/25: -Improved Code(s): N17.9 - ACUTE KIDNEY FAILURE, UNSPECIFIED; N18.9 - CHRONIC KIDNEY DISEASE, UNSPECIFIED (15) CHF (congestive heart failure) Current Visit: No Status: Acute Assessment & Plan: - I&O's/Daily weights/elevated HOB - Trop negative x 3 - tele - BNP 68699 - CXR shows pulm edema - Echo 07/19/23- EF 15-20% IMPRESSION: 1. SEVERE LEFT VENTRICULAR SYSTOLIC DYSFUNCTION. 2. SEVERE ASSYMMETRIC LEFT VENTRICULAR HYPERTROPHY INVOLVING THE INTERVENTRICULAR SEPTUM. 3. BORDERLINE LEFT ATRIAL DILATATION. 4. MILD TRICUSPID REGURGITATION. 5. MILD MITRAL REGURGITATION. 6. NORMAL RIGHT VENTRICULAR SYSTOLIC PRESSURE. - Continue Lasix 60mg PO BID- home dose when STEPHANY resolves - remains at room air -baseline Code(s): I50.9 - HEART FAILURE, UNSPECIFIED (16) Diabetes type 2, controlled Current Visit: No Status: Chronic Qualifiers: Assessment & Plan: - Reviewed from 11/30/23 A1C 7.64 - Continue accuchecks ac/hs, humalog SSI - low dose due to hypoglycemic episodes - Carb consistent diet - Hypoglycemia protocol added - Continue to monitor accuchecks Diarrhea -Cdiff negative -no abdominal pain/distention -no fever -immodium VTE: Xarelto PPI: Protonix Next of KIN: daughter D/C plan: per podiatry recs Code status: SCO/DNR Code(s): S81.801A - UNSPECIFIED OPEN WOUND, RIGHT LOWER LEG, INITIAL ENCOUNTER; S81.802A - UNSPECIFIED OPEN WOUND, LEFT LOWER LEG, INITIAL ENCOUNTER (2) Cellulitis Current Visit: Yes Status: Acute Qualifiers: Site of cellulitis: extremity Site of cellulitis of extremity: lower extremity Code(s): L03.90 - CELLULITIS, UNSPECIFIED I spent 35 minutes [id number] with the patient on the day of discharge performing discharge exam, discussing hospital stay and discharge instructions with patient and caregivers, preparation of discharge records, prescriptions & referral forms and addressing any questions/concerns the patient had as documented above. - Vitals & Intake/Output Vital Signs: Vital Signs Temperature 97.5 F 01/27/24 07:21 Pulse Rate 85 01/27/24 07:21 Respiratory Rate 18 01/27/24 07:21 Blood Pressure 119/70 01/27/24 07:21 O2 Sat by Pulse Oximetry 96 01/27/24 07:21 Intake & Output: Intake & Output 01/24/24 01/25/24 01/26/24 01/27/24 11:59 11:59 11:59 11:59 Intake Total 3698 5557 046 9847 Output Total 550 500 Balance 3148 5653 655 9726 Weight 87 kg - Lab Result Diagrams: 01/27/24 04:00 01/27/24 05:30 Lab Results-Last 24 Hrs: Lab Results-Last 24 Hours 01/26/24 01/26/24 01/26/24 Range/Units 12:05 15:02 15:02 WBC (4.23-9.07) x10^3/uL RBC (4.63-6.08) x10^6/uL Hgb 8.7 L D (13.7-17.5) g/dL Hct 27.4 L (40.1-51.0) % MCV (79.0-92.2) fL MCH (25.7-32.2) pg MCHC (32.3-36.5) g/dL RDW (11.6-14.4) % Plt Count (163-337) x10^3/uL MPV (9.4-12.4) fL Gran % (34.0-67.9) % Immature Gran % (Auto) (0.001-0.429) % Nucleat RBC Rel Count (0.00-0.2) % Eos # (Auto) (0.04-0.54) x10^3/uL Immature Gran # (Auto) (0.001-0.031) x10^3u/L Absolute Lymphs (auto) (1.32-3.57) x10^3/uL Absolute Monos (auto) (0.30-0.82) x10^3/uL Absolute Nucleated RBC (0.00-0.012) x10^3u/L Lymphocytes % (21.8-53.1) % Monocytes % (5.3-12.2) % Eosinophils % (0.8-7.0) % Basophils % (0.2-1.2) % Absolute Granulocytes (1.78-5.38) x10^3/uL Basophils # (0.01-0.08) x10^3/uL Sodium 138 (135-145) mmol/L Potassium 5.0 (3.5-5.1) mmol/L Chloride 109 H (98-107) mmol/L Carbon Dioxide 16 L* (22-30) mmol/L Anion Gap 17.9 H (5-15) MEQ/L BUN 34 H (9-20) mg/dL Creatinine 2.12 H (0.66-1.25) mg/dL Estimated GFR 29.6 ML/MIN Glucose 321 H (74-106) mg/dL POC Glucometer 341 H (74 to 106) mg/dL Calcium 8.6 (8.4-10.2) mg/dL Total Bilirubin 0.80 (0.2-1.3) mg/dL AST 39 (17-59) U/L ALT 32 (0-50) U/L Alkaline Phosphatase 50 (38-126) U/L Serum Total Protein 6.0 L (6.3-8.2) g/dL Albumin 2.9 L (3.5-5.0) g/dL C. difficile Screen (NEGATIVE) C.difficile 027-NAP1-B1 (NEGATIVE) Slides for Path Review 01/26/24 01/26/24 01/26/24 Range/Units 16:42 20:37 Unknown WBC (4.23-9.07) x10^3/uL RBC (4.63-6.08) x10^6/uL Hgb (13.7-17.5) g/dL Hct (40.1-51.0) % MCV (79.0-92.2) fL MCH (25.7-32.2) pg MCHC (32.3-36.5) g/dL RDW (11.6-14.4) % Plt Count (163-337) x10^3/uL MPV (9.4-12.4) fL Gran % (34.0-67.9) % Immature Gran % (Auto) (0.001-0.429) % Nucleat RBC Rel Count (0.00-0.2) % Eos # (Auto) (0.04-0.54) x10^3/uL Immature Gran # (Auto) (0.001-0.031) x10^3u/L Absolute Lymphs (auto) (1.32-3.57) x10^3/uL Absolute Monos (auto) (0.30-0.82) x10^3/uL Absolute Nucleated RBC (0.00-0.012) x10^3u/L Lymphocytes % (21.8-53.1) % Monocytes % (5.3-12.2) % Eosinophils % (0.8-7.0) % Basophils % (0.2-1.2) % Absolute Granulocytes (1.78-5.38) x10^3/uL Basophils # (0.01-0.08) x10^3/uL Sodium (135-145) mmol/L Potassium (3.5-5.1) mmol/L Chloride (98-107) mmol/L Carbon Dioxide (22-30) mmol/L Anion Gap (5-15) MEQ/L BUN (9-20) mg/dL Creatinine (0.66-1.25) mg/dL Estimated GFR ML/MIN Glucose (74-106) mg/dL POC Glucometer 327 H 296 H (74 to 106) mg/dL Calcium (8.4-10.2) mg/dL Total Bilirubin (0.2-1.3) mg/dL AST (17-59) U/L ALT (0-50) U/L Alkaline Phosphatase (38-126) U/L Serum Total Protein (6.3-8.2) g/dL Albumin (3.5-5.0) g/dL C. difficile Screen NEGATIVE (NEGATIVE) C.difficile 027-NAP1-B1 PRESUMPTIVE NEGATIVE (NEGATIVE) Slides for Path Review 01/27/24 01/27/24 01/27/24 Range/Units 04:00 05:30 07:03 WBC 3.6 L (4.23-9.07) x10^3/uL RBC 2.91 L (4.63-6.08) x10^6/uL Hgb 8.4 L (13.7-17.5) g/dL Hct 25.7 L (40.1-51.0) % MCV 88.3 (79.0-92.2) fL MCH 28.9 (25.7-32.2) pg MCHC 32.7 (32.3-36.5) g/dL RDW 18.1 H (11.6-14.4) % Plt Count 65 L (163-337) x10^3/uL MPV 9.7 (9.4-12.4) fL Gran % 76.9 H (34.0-67.9) % Immature Gran % (Auto) 0.3 (0.001-0.429) % Nucleat RBC Rel Count 0.0 (0.00-0.2) % Eos # (Auto) 0.17 (0.04-0.54) x10^3/uL Immature Gran # (Auto) 0.01 (0.001-0.031) x10^3u/L Absolute Lymphs (auto) 0.49 L (1.32-3.57) x10^3/uL Absolute Monos (auto) 0.15 L (0.30-0.82) x10^3/uL Absolute Nucleated RBC 0.00 (0.00-0.012) x10^3u/L Lymphocytes % 13.5 L (21.8-53.1) % Monocytes % 4.1 L (5.3-12.2) % Eosinophils % 4.7 (0.8-7.0) % Basophils % 0.5 (0.2-1.2) % Absolute Granulocytes 2.80 (1.78-5.38) x10^3/uL Basophils # 0.02 (0.01-0.08) x10^3/uL Sodium 139 (135-145) mmol/L Potassium 4.8 (3.5-5.1) mmol/L Chloride 109 H (98-107) mmol/L Carbon Dioxide 21 L (22-30) mmol/L Anion Gap 14.1 (5-15) MEQ/L BUN 32 H (9-20) mg/dL Creatinine 2.09 H (0.66-1.25) mg/dL Estimated GFR 30.1 ML/MIN Glucose 204 H (74-106) mg/dL POC Glucometer 202 H (74 to 106) mg/dL Calcium 8.9 (8.4-10.2) mg/dL Total Bilirubin 1.30 (0.2-1.3) mg/dL AST 46 (17-59) U/L ALT 29 (0-50) U/L Alkaline Phosphatase 57 (38-126) U/L Serum Total Protein 5.8 L (6.3-8.2) g/dL Albumin 2.8 L (3.5-5.0) g/dL C. difficile Screen (NEGATIVE) C.difficile 027-NAP1-B1 (NEGATIVE) Slides for Path Review YES 01/27/24 Range/Units 11:19 WBC (4.23-9.07) x10^3/uL RBC (4.63-6.08) x10^6/uL Hgb (13.7-17.5) g/dL Hct (40.1-51.0) % MCV (79.0-92.2) fL MCH (25.7-32.2) pg MCHC (32.3-36.5) g/dL RDW (11.6-14.4) % Plt Count (163-337) x10^3/uL MPV (9.4-12.4) fL Gran % (34.0-67.9) % Immature Gran % (Auto) (0.001-0.429) % Nucleat RBC Rel Count (0.00-0.2) % Eos # (Auto) (0.04-0.54) x10^3/uL Immature Gran # (Auto) (0.001-0.031) x10^3u/L Absolute Lymphs (auto) (1.32-3.57) x10^3/uL Absolute Monos (auto) (0.30-0.82) x10^3/uL Absolute Nucleated RBC (0.00-0.012) x10^3u/L Lymphocytes % (21.8-53.1) % Monocytes % (5.3-12.2) % Eosinophils % (0.8-7.0) % Basophils % (0.2-1.2) % Absolute Granulocytes (1.78-5.38) x10^3/uL Basophils # (0.01-0.08) x10^3/uL Sodium (135-145) mmol/L Potassium (3.5-5.1) mmol/L Chloride (98-107) mmol/L Carbon Dioxide (22-30) mmol/L Anion Gap (5-15) MEQ/L BUN (9-20) mg/dL Creatinine (0.66-1.25) mg/dL Estimated GFR ML/MIN Glucose (74-106) mg/dL POC Glucometer 239 H (74 to 106) mg/dL Calcium (8.4-10.2) mg/dL Total Bilirubin (0.2-1.3) mg/dL AST (17-59) U/L ALT (0-50) U/L Alkaline Phosphatase (38-126) U/L Serum Total Protein (6.3-8.2) g/dL Albumin (3.5-5.0) g/dL C. difficile Screen (NEGATIVE) C.difficile 027-NAP1-B1 (NEGATIVE) Slides for Path Review Micro Results-Entire Visit: Microbiology 01/20/24 15:04 Gram Stain - Final Toe - L Big (Greater) Gram Stain Result 1 - Final Gram Stain Result 2 - Final AFB Specimen Processing - Final Acid Fast Bacilli Smear - Final 01/18/24 12:25 Blood Culture - Final Blood 01/19/24 13:20 Wound Culture - Final Toe - L Big (Greater) Proteus Mirabilis Citrobacter Freundii Methicillin Resist Staph Aur 01/19/24 13:28 Wound Culture - Final Leg - Right Lateral Pseudomonas Aeruginosa 01/19/24 13:25 Wound Culture - Final Leg - Left Lower Medial Pseudomonas Aeruginosa 01/18/24 16:23 Wound Culture - Final Leg - Left Lower Lateral Pseudomonas Aeruginosa Enterobacter Clocae Complex 01/18/24 16:23 Wound Culture - Final Leg - Right Lower Pseudomonas Aeruginosa Citrobacter Freundii Accuchecks Date 01/27/24 Date 01/26/24 Date 01/26/24 Time 21:00 Time 17:30 - Radiology Exams Ordered Rad Exams-Entire Visit: Radiology Procedures Category Date Time Status CHEST 1 VIEW (PORTABLE) Stat Exams 01/25/24 12:13 Completed - Procedures and Test Procedures and Tests throughout Hospitalization: Therapy Orders & Screens 01/18/24 19:06 PT Eval & Treat (MD Order) ONCE Reason for Eval:: progressive weakness Diagnosis: Cellulitis, delirium, hallucinations OT Eval and Treat (MD Order) ONCE Comment: Physician Instructions: Reason For Exam: Diagnosis: Cellulitis, delirium, hallucinations 01/19/24 08:00 OT Screen per Nursing Assess ONCE Comment: Protocol Order Physician Instructions: Greater than 3 points order OT Admission Screening Reason For Exam: Triggered on Admission Diagnosis: Cellulitis, delirium, hallucinations Open Wound/Cellutlitis/Pressure Ulcers: Yes Acute Fx/ORIF/Change in wt bearing status: No Severe MUSCULOSKELETAL pain: No ADL Dysfunction: Yes Acute CVA w/Hemiparesis/Hemiplegia: No Decreased Functional Mobility/Strength: Yes Sprain/Strain: No Acute Post-op Mobility Dysfunction: No Total Points: 9 PT Screen per Nursing Assess ONCE Comment: Protocol Order Physician Instructions: Greater than 3 points order PT Admission Screenin Reason For Exam: Triggered on Admission Diagnosis: Cellulitis, delirium, hallucinations Open Wound/Cellutlitis/Pressure Ulcers: Yes Acute Fx/ORIF/Change in wt bearing status: No Severe MUSCULOSKELETAL pain: No ADL Dysfunction: Yes Acute CVA w/Hemiparesis/Hemiplegia: No Decreased Functional Mobility/Strength: Yes Sprain/Strain: No Acute Post-op Mobility Dysfunction: No Total Points: 9 ST Screen per Nursing Assess ONCE Comment: Protocol Order Physician Instructions: Greater than [address] Admission Screening Reason For Exam: Triggered on Admission Diagnosis: Cellulitis, delirium, hallucinations CVA/Dyshpagia/Aphasia: Yes Cognitive Deficits: No Dehydration/Nutrition Deficit: No Reflux: No Oral-Motor Difficulties: No Pneumonia: No Senior Living Resident: Yes Total Points: 10 Discharge Exam General Appearance: no apparent distress Neurologic Exam: alert, oriented x 3, cooperative Eye Exam: PERRL Ears, Nose, Throat Exam: normal ENT inspection Neck Exam: normal inspection Respiratory Exam: normal breath sounds, lungs clear Cardiovascular Exam: regular rate/rhythm, normal heart sounds Gastrointestinal/Abdomen Exam: soft, normal bowel sounds Male Genitalia Exam: other (penile irritation/swelling) Rectal Exam: deferred Back Exam: normal inspection Extremity Exam: other (Left foot with surgical dressing) Wound Assessment: Skin/Wound Assessment Wound/Incision Assessment Start: 01/18/24 18:05 Text: Status: Active Freq: Q6H Protocol: Document 01/27/24 08:30 JV (Rec: 01/27/24 09:16 JV [id number]) Wound/Incision Assessment Left Lower Calf Wound Assessment Shift Assessment Wound Type UNABLE TO ASSESS Wound Stage Non Pressure Wound Dressing Status Dry & Intact Drainage Amount None Drainage Odor None/Absent Primary Dressing UNNABOOT Comment Dressing CDI. Remains true Right Lower Calf Wound Assessment Shift Assessment Wound Type UNABLE TO ASSESS Wound Stage Non Pressure Wound Dressing Status Dry & Intact Drainage Amount None Primary Dressing UNNABOOT Comment Dressing CDI. Remains true Left Great Toe Wound Assessment Shift Assessment Wound Type Amputation Wound Stage Non Pressure Wound Dressing Status Dry & Intact Drainage Amount None Drainage Description Sanguineous Drainage Odor None/Absent Primary Dressing UNNABOOT Comment dressing CDI - no shadowing noted Bilateral Buttocks Wound Assessment Shift Assessment Wound Type healing shearing Drainage Amount None General Appearance Reddened Surrounding Tissue [place] Comment Healing shearing, redness noted but all areas blanchable . Barrier and zinc oxide cream being applied PRN with moisés care. Remains true. Wound Photo Photo Taken No Final Diagnosis/Problem List - Final Discharge Diagnosis/Problem (1) Open wound of both legs with complication Current Visit: Yes Status: Acute Code(s): S81.801A - UNSPECIFIED OPEN WOUND, RIGHT LOWER LEG, INITIAL ENCOUNTER; S81.802A - UNSPECIFIED OPEN WOUND, LEFT LOWER LEG, INITIAL ENCOUNTER (2) Cellulitis Current Visit: Yes Status: Acute Code(s): L03.90 - CELLULITIS, UNSPECIFIED (3) Amputated toe of left foot Current Visit: Yes Status: Acute Code(s): S98.132A - COMPLETE TRAUMATIC AMPUTATION OF ONE LEFT LESSER TOE, INIT (4) Hypothyroid Current Visit: Yes Status: Acute Code(s): E03.9 - HYPOTHYROIDISM, UNSPECIFIED (5) Weakness Current Visit: Yes Status: Acute Code(s): R53.1 - WEAKNESS (6) BPH (benign prostatic hyperplasia) Current Visit: Yes Status: Acute Code(s): N40.0 - BENIGN PROSTATIC HYPERPLASIA WITHOUT LOWER URINRY TRACT SYMP (7) Pancytopenia Current Visit: Yes Status: Acute Code(s): D61.818 - OTHER PANCYTOPENIA (8) Confusion Current Visit: Yes Status: Acute Code(s): R41.0 - DISORIENTATION, UNSPECIFIED (9) Hallucination Current Visit: Yes Status: Acute Code(s): R44.3 - HALLUCINATIONS, UNSPECIFIED (10) Hypokalemia Current Visit: Yes Status: Acute Code(s): E87.6 - HYPOKALEMIA (11) Metabolic acidosis Current Visit: Yes Status: Acute Code(s): E87.20 - ACIDOSIS, UNSPECIFIED (12) Osteomyelitis of toe of left foot Current Visit: Yes Status: Acute Code(s): M86.9 - OSTEOMYELITIS, UNSPECIFIED (13) Thrombocytopenia Current Visit: Yes Status: Acute (14) Acute on chronic renal failure Current Visit: No Status: Acute Code(s): N17.9 - ACUTE KIDNEY FAILURE, UNSPECIFIED; N18.9 - CHRONIC KIDNEY DISEASE, UNSPECIFIED (15) CHF (congestive heart failure) Current Visit: No Status: Acute Code(s): I50.9 - HEART FAILURE, UNSPECIFIED (16) Diabetes type 2, controlled Current Visit: No Status: Chronic Code(s): E11.9 - TYPE 2 DIABETES MELLITUS WITHOUT COMPLICATIONS (17) Anemia Current Visit: Yes Status: Acute Code(s): D64.9 - ANEMIA, UNSPECIFIED (18) Diarrhea Current Visit: Yes Status: Acute Code(s): R19.7 - DIARRHEA, UNSPECIFIED - Discharge Disposition: DC TO ANY "OTHER" ASSISTED Condition: Stable Prescriptions: New Cefepime HCl 1 gm [Maxipime 1 gm] 1 g IV Q24H10 #14 Linezolid [Zyvox] 600 mg PO BID 14 Days tablet Loperamide HCl 2 mg [Imodium 2 mg] 2 mg PO PRN PRN cap PRN Reason: Diarrhea Pantoprazole 20 mg [Protonix 20MG Tablet] 20 mg PO DAILY tablet Continue Insulin Glargine [Lantus Insulin] 18 unit SQ 1800 Insulin Aspart [Novolog] 0 unit SQ TIDWMEALS Citalopram Hydrobromide [Celexa] 20 mg PO DAILY Ferrous Sulfate [Iron] 325 mg PO TID Rivaroxaban [Xarelto] 2.5 mg PO BID Levothyroxine Sodium [Synthroid] 25 mcg PO DAILY Potassium Chloride 30 meq PO TID Lactobacillus Acidophilus [Acidophilus TABLET] 1 tab PO BID Tamsulosin HCl 0.4 mg [Flomax 0.4 MG] 0.4 mg PO HS Aspirin EC 81 mg [Ecotrin 81 mg] 81 mg PO DAILY Ergocalciferol (Vitamin D2) [Drisdol] 50,000 mcg PO WEEKLY Latanoprost [Xalatan] 1 drop DROPS HS Insulin Lispro [Humalog] 6 unit SQ TIDWMEALS Discontinued Furosemide 40 mg [Lasix 40 MG] 60 mg PO BID Furosemide 20 mg [Lasix 20 mg] 60 mg PO BID metOLazone [Metolazone] 5 mg PO UD Additional Instructions: NEW ASSISTED ORDERS: -Hold diuretics due to kidney function - will need repeat cmp tomorrow and nephrology/cardiology follow up in the next few days - can resume diuretics when cards/nephrology approve -MAINTAIN NON WEIGHTBEARING STATUS TO LEFT FOOT -DRESSING CHANGES FOLLOWS [facility] to do dressing changes Wednesday, Wednesday, Wednesday Left leg: Apply iodine to incision on foot and all open wounds on legs. Apply adaptic, sterile 4x4 gauze, abd pad to incision Apply adaptic, sterile 4x4 gauze to all open wounds on leg. Apply unna boot with CALAMINE, to level of tibial tuberosity. Wrap with kerlix, covering toes, to same level. Wrap with coban with 50% compression to same level. Right leg: Apply iodine to all open wounds. Apply adaptic and sterile 4x4 gauze to all open wounds. Apply unna boot with CALAMINE to level of tibial tuberosity. Wrap with kerlix to same level. Wrap with coban with 50% compression to same level. -SEE ORDERS FOR ZYVOX AND CEFIPIME X 2 WEEKS -ROUTINE PICC LINE CARE -CONTINUE XARELTO ORDERED- MONITOR DRESSING EVERY SHIFT FOR EXCESS BLEEDING- CALL KALLIE WITH ANY CONCERNS. -FOLLOW UP WITH DR. ARREGUIN SCHEDULED -ND RECORD SHOWS PT SCHED WITH DR DE LA CRUZ AT 12:50 DATE UNKNOWN (KEEP THIS APT) -SEE ATTACHED MED LIST Follow up with: KALLIE HAYES, DPM [ACTIVE STAFF] - 02/01/24 1:00 pm DOROTHY ORDOÑEZ MD [CONSULTING PHYSICIAN] - ASIF ANGEL [NON-STAFF PHY W/O PRIVILEGES] - 5 Days
[2024-01-27] MEDS: DIFLUCAN PO ONE (13:49)
[2024-01-27 16:49] VITALS: BP 123/83; PULSE 79; TEMP 96.5; O2SAT 93
--- NOTE | 2024-01-27 17:35 | PCM.NOTE ---
Date and Time: 01/27/241732 Subjective Assessment: doing well, AMS with moments of lucidity oriented to person place and time, Concern regarding acute blood loss. Physical Exam - Narrative Narrative Physical Exam: Podiatry Physical Exam Objective Data Vital Signs: Vital Signs - 24 hr Temp Pulse Resp BP Pulse Ox 01/27/24 16:00 96.5 F 79 18 123/83 93 L 01/27/24 12:00 82 18 01/27/24 07:21 97.5 F 85 18 119/70 96 01/27/24 04:00 97.2 F 79 24 119/68 96 01/26/24 23:27 96.9 F 86 16 137/77 95 01/26/24 20:10 97.3 F 90 14 134/74 94 L Pain Assessment - Last Documented Pain Intensity 2 Intake and Output: Intake & Output 01/25/24 01/26/24 01/27/24 01/28/24 11:59 11:59 11:59 11:59 Intake Total 1454 124 7628 120 Output Total 500 Balance 3696 627 0292 120 Weight 87 kg Lab Results: Lab Results-Last 24 Hours 01/26/24 01/27/24 01/27/24 Range/Units 20:37 04:00 05:30 WBC 3.6 L (4.23-9.07) x10^3/uL RBC 2.91 L (4.63-6.08) x10^6/uL Hgb 8.4 L (13.7-17.5) g/dL Hct 25.7 L (40.1-51.0) % MCV 88.3 (79.0-92.2) fL MCH 28.9 (25.7-32.2) pg MCHC 32.7 (32.3-36.5) g/dL RDW 18.1 H (11.6-14.4) % Plt Count 65 L (163-337) x10^3/uL MPV 9.7 (9.4-12.4) fL Gran % 76.9 H (34.0-67.9) % Immature Gran % (Auto) 0.3 (0.001-0.429) % Nucleat RBC Rel Count 0.0 (0.00-0.2) % Eos # (Auto) 0.17 (0.04-0.54) x10^3/uL Immature Gran # (Auto) 0.01 (0.001-0.031) x10^3u/L Absolute Lymphs (auto) 0.49 L (1.32-3.57) x10^3/uL Absolute Monos (auto) 0.15 L (0.30-0.82) x10^3/uL Absolute Nucleated RBC 0.00 (0.00-0.012) x10^3u/L Lymphocytes % 13.5 L (21.8-53.1) % Monocytes % 4.1 L (5.3-12.2) % Eosinophils % 4.7 (0.8-7.0) % Basophils % 0.5 (0.2-1.2) % Absolute Granulocytes 2.80 (1.78-5.38) x10^3/uL Basophils # 0.02 (0.01-0.08) x10^3/uL Sodium 139 (135-145) mmol/L Potassium 4.8 (3.5-5.1) mmol/L Chloride 109 H (98-107) mmol/L Carbon Dioxide 21 L (22-30) mmol/L Anion Gap 14.1 (5-15) MEQ/L BUN 32 H (9-20) mg/dL Creatinine 2.09 H (0.66-1.25) mg/dL Estimated GFR 30.1 ML/MIN Glucose 204 H (74-106) mg/dL POC Glucometer 296 H (74 to 106) mg/dL Calcium 8.9 (8.4-10.2) mg/dL Total Bilirubin 1.30 (0.2-1.3) mg/dL AST 46 (17-59) U/L ALT 29 (0-50) U/L Alkaline Phosphatase 57 (38-126) U/L Serum Total Protein 5.8 L (6.3-8.2) g/dL Albumin 2.8 L (3.5-5.0) g/dL Slides for Path Review YES 01/27/24 01/27/24 01/27/24 Range/Units 07:03 11:19 16:43 WBC (4.23-9.07) x10^3/uL RBC (4.63-6.08) x10^6/uL Hgb (13.7-17.5) g/dL Hct (40.1-51.0) % MCV (79.0-92.2) fL MCH (25.7-32.2) pg MCHC (32.3-36.5) g/dL RDW (11.6-14.4) % Plt Count (163-337) x10^3/uL MPV (9.4-12.4) fL Gran % (34.0-67.9) % Immature Gran % (Auto) (0.001-0.429) % Nucleat RBC Rel Count (0.00-0.2) % Eos # (Auto) (0.04-0.54) x10^3/uL Immature Gran # (Auto) (0.001-0.031) x10^3u/L Absolute Lymphs (auto) (1.32-3.57) x10^3/uL Absolute Monos (auto) (0.30-0.82) x10^3/uL Absolute Nucleated RBC (0.00-0.012) x10^3u/L Lymphocytes % (21.8-53.1) % Monocytes % (5.3-12.2) % Eosinophils % (0.8-7.0) % Basophils % (0.2-1.2) % Absolute Granulocytes (1.78-5.38) x10^3/uL Basophils # (0.01-0.08) x10^3/uL Sodium (135-145) mmol/L Potassium (3.5-5.1) mmol/L Chloride (98-107) mmol/L Carbon Dioxide (22-30) mmol/L Anion Gap (5-15) MEQ/L BUN (9-20) mg/dL Creatinine (0.66-1.25) mg/dL Estimated GFR ML/MIN Glucose (74-106) mg/dL POC Glucometer 202 H 239 H 299 H (74 to 106) mg/dL Calcium (8.4-10.2) mg/dL Total Bilirubin (0.2-1.3) mg/dL AST (17-59) U/L ALT (0-50) U/L Alkaline Phosphatase (38-126) U/L Serum Total Protein (6.3-8.2) g/dL Albumin (3.5-5.0) g/dL Slides for Path Review Multi-Disciplinary Progress Notes: Multi-Disciplinary Progress Notes 01/27/24 13:51 Case Management Note by Bettie Che S/W PATIENT - HE IS AGREEABLE WITH PLAN FOR PATIENT TO RETURN TO [facility] TODAY. ALSO S/W SON IN ROOM- ALSO AGREEABLE WITH PLAN PATIENT WILL NEED TO TRANSPORT BACK TO [place] BY AMBULANCE D/T WEAKNESS AND WB RESTRICTIONS. Initialized on 01/27/24 13:51 - END OF NOTE Assessment/Plan (1) Venous insufficiency of both lower extremities Current Visit: Yes Status: Acute Assessment & Plan: s/p delayed delayed closure of wound Redressed with unna boot for compression therapy trending H&H will follow. Code(s): I87.2 - VENOUS INSUFFICIENCY (CHRONIC) (PERIPHERAL) (2) Acute on chronic renal failure Current Visit: No Status: Acute Qualifiers: Chronic kidney disease stage: stage 3 (moderate) Code(s): N17.9 - ACUTE KIDNEY FAILURE, UNSPECIFIED; N18.9 - CHRONIC KIDNEY DISEASE, UNSPECIFIED (3) CHF (congestive heart failure) Current Visit: No Status: Acute Code(s): I50.9 - HEART FAILURE, UNSPECIFIED (4) Osteomyelitis Current Visit: No Status: Acute Qualifiers: Osteomyelitis type: subacute Osteomyelitis location: foot Laterality: right Qualified Code(s): M86.271 - Subacute osteomyelitis, right ankle and foot Code(s): M86.9 - OSTEOMYELITIS, UNSPECIFIED (5) Uncontrolled type II diabetes mellitus Current Visit: No Status: Chronic Code(s): DCH8570 - (6) Wound of left foot Current Visit: No Status: Chronic Code(s): S91.302A - UNSPECIFIED OPEN W OUND, LEFT FOOT, INITIAL ENCOUNTER (7) Open wound of both legs with complication Current Visit: Yes Status: Acute Code(s): S81.801A - UNSPECIFIED OPEN WOUND, RIGHT LOWER LEG, INITIAL ENCOUNTER; S81.802A - UNSPECIFIED OPEN WOUND, LEFT LOWER LEG, INITIAL ENCOUNTER (8) CHF (congestive heart failure) Current Visit: Yes Status: Acute Qualifiers: Heart failure chronicity: acute Code(s): I50.9 - HEART FAILURE, UNSPECIFIED
--- NOTE | 2024-01-27 17:38 | PCM.NOTE ---
Date and Time: 01/27/241734 Subjective Assessment: POD #2 S/P CLOSURE OF WOUND AND MUSCLE FLAP. doing well mentation improved at this time. Physical Exam - Narrative Narrative Physical Exam: Podiatry Physical Exam Objective Data Vital Signs: Vital Signs - 24 hr Temp Pulse Resp BP Pulse Ox 01/27/24 16:00 96.5 F 79 18 123/83 93 L 01/27/24 12:00 82 18 01/27/24 07:21 97.5 F 85 18 119/70 96 01/27/24 04:00 97.2 F 79 24 119/68 96 01/26/24 23:27 96.9 F 86 16 137/77 95 01/26/24 20:10 97.3 F 90 14 134/74 94 L Pain Assessment - Last Documented Pain Intensity 2 Intake and Output: Intake & Output 01/25/24 01/26/24 01/27/24 01/28/24 11:59 11:59 11:59 11:59 Intake Total 9721 874 2465 120 Output Total 500 Balance 4549 720 2623 120 Weight 87 kg Lab Results: Lab Results-Last 24 Hours 01/26/24 01/27/24 01/27/24 Range/Units 20:37 04:00 05:30 WBC 3.6 L (4.23-9.07) x10^3/uL RBC 2.91 L (4.63-6.08) x10^6/uL Hgb 8.4 L (13.7-17.5) g/dL Hct 25.7 L (40.1-51.0) % MCV 88.3 (79.0-92.2) fL MCH 28.9 (25.7-32.2) pg MCHC 32.7 (32.3-36.5) g/dL RDW 18.1 H (11.6-14.4) % Plt Count 65 L (163-337) x10^3/uL MPV 9.7 (9.4-12.4) fL Gran % 76.9 H (34.0-67.9) % Immature Gran % (Auto) 0.3 (0.001-0.429) % Nucleat RBC Rel Count 0.0 (0.00-0.2) % Eos # (Auto) 0.17 (0.04-0.54) x10^3/uL Immature Gran # (Auto) 0.01 (0.001-0.031) x10^3u/L Absolute Lymphs (auto) 0.49 L (1.32-3.57) x10^3/uL Absolute Monos (auto) 0.15 L (0.30-0.82) x10^3/uL Absolute Nucleated RBC 0.00 (0.00-0.012) x10^3u/L Lymphocytes % 13.5 L (21.8-53.1) % Monocytes % 4.1 L (5.3-12.2) % Eosinophils % 4.7 (0.8-7.0) % Basophils % 0.5 (0.2-1.2) % Absolute Granulocytes 2.80 (1.78-5.38) x10^3/uL Basophils # 0.02 (0.01-0.08) x10^3/uL Sodium 139 (135-145) mmol/L Potassium 4.8 (3.5-5.1) mmol/L Chloride 109 H (98-107) mmol/L Carbon Dioxide 21 L (22-30) mmol/L Anion Gap 14.1 (5-15) MEQ/L BUN 32 H (9-20) mg/dL Creatinine 2.09 H (0.66-1.25) mg/dL Estimated GFR 30.1 ML/MIN Glucose 204 H (74-106) mg/dL POC Glucometer 296 H (74 to 106) mg/dL Calcium 8.9 (8.4-10.2) mg/dL Total Bilirubin 1.30 (0.2-1.3) mg/dL AST 46 (17-59) U/L ALT 29 (0-50) U/L Alkaline Phosphatase 57 (38-126) U/L Serum Total Protein 5.8 L (6.3-8.2) g/dL Albumin 2.8 L (3.5-5.0) g/dL Slides for Path Review YES 01/27/24 01/27/24 01/27/24 Range/Units 07:03 11:19 16:43 WBC (4.23-9.07) x10^3/uL RBC (4.63-6.08) x10^6/uL Hgb (13.7-17.5) g/dL Hct (40.1-51.0) % MCV (79.0-92.2) fL MCH (25.7-32.2) pg MCHC (32.3-36.5) g/dL RDW (11.6-14.4) % Plt Count (163-337) x10^3/uL MPV (9.4-12.4) fL Gran % (34.0-67.9) % Immature Gran % (Auto) (0.001-0.429) % Nucleat RBC Rel Count (0.00-0.2) % Eos # (Auto) (0.04-0.54) x10^3/uL Immature Gran # (Auto) (0.001-0.031) x10^3u/L Absolute Lymphs (auto) (1.32-3.57) x10^3/uL Absolute Monos (auto) (0.30-0.82) x10^3/uL Absolute Nucleated RBC (0.00-0.012) x10^3u/L Lymphocytes % (21.8-53.1) % Monocytes % (5.3-12.2) % Eosinophils % (0.8-7.0) % Basophils % (0.2-1.2) % Absolute Granulocytes (1.78-5.38) x10^3/uL Basophils # (0.01-0.08) x10^3/uL Sodium (135-145) mmol/L Potassium (3.5-5.1) mmol/L Chloride (98-107) mmol/L Carbon Dioxide (22-30) mmol/L Anion Gap (5-15) MEQ/L BUN (9-20) mg/dL Creatinine (0.66-1.25) mg/dL Estimated GFR ML/MIN Glucose (74-106) mg/dL POC Glucometer 202 H 239 H 299 H (74 to 106) mg/dL Calcium (8.4-10.2) mg/dL Total Bilirubin (0.2-1.3) mg/dL AST (17-59) U/L ALT (0-50) U/L Alkaline Phosphatase (38-126) U/L Serum Total Protein (6.3-8.2) g/dL Albumin (3.5-5.0) g/dL Slides for Path Review Multi-Disciplinary Progress Notes: Multi-Disciplinary Progress Notes 01/27/24 13:51 Case Management Note by Bettie Che S/W PATIENT - HE IS AGREEABLE WITH PLAN FOR PATIENT TO RETURN TO [facility] TODAY. ALSO S/W SON IN ROOM- ALSO AGREEABLE WITH PLAN PATIENT WILL NEED TO TRANSPORT BACK TO [place] BY AMBULANCE D/T WEAKNESS AND WB RESTRICTIONS. Initialized on 01/27/24 13:51 - END OF NOTE Assessment/Plan (1) Venous insufficiency of both lower extremities Current Visit: Yes Status: Acute Assessment & Plan: unna boots applied to the bilateral lower extremity for venous insufficiency control. post op day #2 s/p delayed closure and muscle flap. doing well. minor acute bloodless at anterior aspect of foot wound ok for d/c however monitor for bleeding. Code(s): I87.2 - VENOUS INSUFFICIENCY (CHRONIC) (PERIPHERAL) (2) Acute on chronic renal failure Current Visit: No Status: Acute Qualifiers: Chronic kidney disease stage: stage 3 (moderate) Code(s): N17.9 - ACUTE KIDNEY FAILURE, UNSPECIFIED; N18.9 - CHRONIC KIDNEY DISEASE, UNSPECIFIED (3) CHF (congestive heart failure) Current Visit: No Status: Acute Code(s): I50.9 - HEART FAILURE, UNSPECIFIED (4) Osteomyelitis Current Visit: No Status: Acute Qualifiers: Osteomyelitis type: subacute Osteomyelitis location: foot Laterality: right Qualified Code(s): M86.271 - Subacute osteomyelitis, right ankle and foot Code(s): M86.9 - OSTEOMYELITIS, UNSPECIFIED (5) Uncontrolled type II diabetes mellitus Current Visit: No Status: Chronic Code(s): [id number] - (6) Wound of left foot Current Visit: No Status: Chronic Code(s): S91.302A - UNSPECIFIED OPEN WOUND, LEFT FOOT, INITIAL ENCOUNTER (7) Open wound of both legs with complication Current Visit: Yes Status: Acute Code(s): S81.801A - UNSPECIFIED OPEN WOUND, RIGHT LOWER LEG, INITIAL ENCOUNTER; S81.802A - UNSPECIFIED OPEN WOUND, LEFT LOWER LEG, INITIAL ENCOUNTER (8) CHF (congestive heart failure) Current Visit: Yes Status: Acute Qualifiers: Heart failure chronicity: acute Code(s): I50.9 - HEART FAILURE, UNSPECIFIED
== END 2024-01-27 18:25 | DRG 580 ==
LOC: ED 10:53 → MED SURG 17:55 → OBSVTOIN 01-19 15:23
PROVIDERS: ADMIT Internal Medicine; ATTEND Internal Medicine
PROC: 0QBC0ZZ Excision of Left Lower Femur, Open Approach (ICD-10-PCS; 2024-01-19)
PROC: 0KR Muscles, Replacement (ICD-10-PCS; 2024-01-19)
PROC: 0Y6Q0Z0 Detachment at Left 1st Toe, Complete, Open Approach (ICD-10-PCS; principal; 2024-01-20)
PROC: 0QBP0ZZ Excision of Left Metatarsal, Open Approach (ICD-10-PCS; 2024-01-20)
PROC: 2W1MX6Z Compression of Left Lower Extremity using Pressure Dressing (ICD-10-PCS; 2024-01-20)
PROC: 2W1LX6Z Compression of Right Lower Extremity using Pressure Dressing (ICD-10-PCS; 2024-01-20)
PROC: 0Y6N0Z9 Detachment at Left Foot, Partial 1st Ray, Open Approach (ICD-10-PCS; 2024-01-25)
PROC: 0YQ Anatomical Regions, Lower Extremities, Repair (ICD-10-PCS; 2024-01-25)
DX: S81.801A Unspecified open wound, right lower leg, initial encounter (principal); D61.818 Other pancytopenia; L03.116 Cellulitis of left lower limb; R44.3 Hallucinations, unspecified; N17.9 Acute kidney failure, unspecified; E87.20 Acidosis, unspecified; L03.115 Cellulitis of right lower limb; M86.271 Subacute osteomyelitis, right ankle and foot; E11.22 Type 2 diabetes mellitus with diabetic chronic kidney disease; E11.621 Type 2 diabetes mellitus with foot ulcer; I87.2 Venous insufficiency (chronic) (peripheral); N18.9 Chronic kidney disease, unspecified; I12.9 Hypertensive chronic kidney disease with stage 1 through stage 4 chronic kidney disease, or unspecified chronic kidney disease; I50.9 Heart failure, unspecified; E03.9 Hypothyroidism, unspecified; R53.1 Weakness; N40.0 Benign prostatic hyperplasia without lower urinary tract symptoms; R41.0 Disorientation, unspecified; E87.6 Hypokalemia; D69.6 Thrombocytopenia, unspecified; R19.7 Diarrhea, unspecified; Z79.899 Other long term (current) drug therapy; Z86.73 Personal history of transient ischemic attack (TIA), and cerebral infarction without residual deficits; Z79.01 Long term (current) use of anticoagulants
CPT/HCPCS: 11042; 11044; 29580; 36000; 36415; 36430; 70450; 71045; 73590; 73620; 73630; 73718; 76000; 80053; 81001; 82947; 83605; 83735; 83880; 84132; 84134; 84145; 84484; 85014; 85018; 85025; 85027; 86850; 86900; 86901; 86922; 87040; 87045; 87046; 87070; 87075; 87077; 87116; 87177; 87186; 87205; 87206; 87209; 87328; 87329; 87427; 87493; 93005; 93041; 93268; 94760; 94762; 96374; 99024; 99223; 99231; 99284; A6260; J0692; J1817; J1940; J2020; J2543; J3260; J3370; P9016; Q3014; A9270-GY; G0378

== ENCOUNTER 2024-01-31 08:34 | Emergency (ER) | payer MEDICARE, OTHER ==
--- NOTE | 2024-01-31 08:43 | ERPHSYRPT ---
- History of Present Illness Time Seen by Provider: 01/31/24 08:43 Source: patient, family, EMS, longterm records, old records Exam Limitations: clinical condition Physician History: This is an 88-year-old white male patient who is a resident at the [facility]. Patient stated he felt "foggy" at the longterm and his blood sugar was found to be 57. He would not take any oral intake including orange juice by his daughter, who is a nurse and/or oral glucose. Patient's nurse provided independent history secondary to the patient being confused. skilled nursing notes were also reviewed and interpreted. The patient, within the last couple of weeks has had his left foot toes amputated by Dr. Streeter and podiatry secondary to significant infection. He has appointment to see Dr. Streeter on an outpatient basis tomorrow, 02/01/2024. Patient also has received packed red blood cells transfusion because of significant anemia with a hematocrit of approximately 6.8 per patient's daughter. Patient's daughter states that patient becomes confused when he has a "illness". Ordinarily his mind is sharp. Patient also refuses a Ross catheter. Patient has significant prostate issues. Patient is an insulin-dependent diabetic, on Xarelto, has a history of anemia in the past, hypothyroidism, CHF, hyperlipidemia, chronic renal disease and has had a stroke in the past. Timing/Duration: today Severity: moderate Associated Symptoms: shortness of breath (O2 sats on arrival to emergency department was 92 and supplemental oxygen was applied.), weakness (And confusion) Allergies/Adverse Reactions: sulfamethoxazole [From Bactrim] Allergy (Intermediate, Verified 01/18/24 11:43) Swelling trimethoprim [From Bactrim] Allergy (Intermediate, Verified 01/18/24 11:43) Swelling Sulfa (Sulfonamide Antibiotics) Adverse Reaction (Intermediate, Verified 01/18/24 11:43) Swelling quetiapine [From Seroquel] Adverse Reaction (Verified 01/18/24 19:17) RESPIRATORY DEPRESSION Home Medications: Citalopram Hydrobromide [Celexa] 20 mg PO DAILY 02/22/19 [History] Ferrous Sulfate [Iron] 325 mg PO TID 02/22/19 [History] Insulin Aspart [Novolog] 0 unit SQ TIDWMEALS 02/22/19 [History] Insulin Glargine [Lantus Insulin] 18 unit SQ 1800 02/22/19 [History] Rivaroxaban [Xarelto] 2.5 mg PO BID 10/17/21 [History] Lactobacillus Acidophilus [Acidophilus TABLET] 1 tab PO BID 09/30/22 [History] Levothyroxine Sodium [Synthroid] 25 mcg PO DAILY 09/30/22 [History] Potassium Chloride 30 meq PO TID 09/30/22 [History] Aspirin EC 81 mg [Ecotrin 81 mg] 81 mg PO DAILY 12/09/22 [History] Tamsulosin HCl 0.4 mg [Flomax 0.4 MG] 0.4 mg PO HS 12/09/22 [History] Ergocalciferol (Vitamin D2) [Drisdol] 50,000 mcg PO WEEKLY 07/15/23 [History] Insulin Lispro [Humalog] 6 unit SQ TIDWMEALS 01/18/24 [History] Latanoprost [Xalatan] 1 drop DROPS HS 01/18/24 [History] Cefepime HCl 1 gm [Maxipime 1 gm] 1 g IV Q24H10 01/31/24 [History] Furosemide 20 mg [Lasix 20 mg] 60 mg PO BID 01/31/24 [History] Hx Tetanus, Diphtheria Vaccination/Date Given: No Hx Influenza Vaccination/Date Given: No Hx Pneumococcal Vaccination/Date Given: Yes Travel Risk - International Travel Have you traveled outside of the country in past 3 weeks: No - Emerging Infectious Disease Are you exhibiting symptoms associated with any current EIDs: No Symptoms: Fever - Review of Systems Constitutional: Lethargy, Weakness, Other (Infusion) Eyes: No Symptoms Ears, Nose, & Throat: No Symptoms Respiratory: Dyspnea Cardiac: No Symptoms Abdominal/Gastrointestinal: No Symptoms Genitourinary Symptoms: No Symptoms Musculoskeletal: No Symptoms Skin: Other (Generalized edema) Neurological: Other Psychological: No Symptoms (Confused) Endocrine: No Symptoms Hematologic/Lymphatic: No Symptoms Immunological/Allergic: No Symptoms All Other Systems: Reviewed and Negative - Past Medical History Pertinent Past Medical History: Yes Neurological History: Stroke ENT History: No Pertinent History Cardiac History: Congestive Heart Failure, High Cholesterol, Hypertension, Myocardial Infarction ([place]) Respiratory History: No Pertinent History Endocrine Medical History: Diabetes Type II Musculoskeletal History: Arthritis GI Medical History: No Pertinent History History: Renal Disease Psycho-Social History: No Pertinent History Male Reproductive Disorders: No Pertinent History 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%", fall injuring jordon hands - Past Surgical History Past Surgical History: Yes Neuro Surgical History: No Pertinent History Cardiac: Cardiac Catheterization, Other Respiratory: No Pertinent History Gastrointestinal: No Pertinent History Genitourinary: No Pertinent History Musculoskeletal: No Pertinent History, Orthopedic Surgery Male Surgical History: No Pertinent History Other Surgical History: Callus removed from ball of right foot; 2ND DIGIT RIGHT FOOT REMOVED, transmetatarsal right amputation, BLE stents - Social History Smoking Status: Never smoker Exposure to second hand smoke: No Drug Use: none Patient Lives Alone: Yes - Social Determinants of Health Will the patient participate in the screening: Declined to provide - Nursing Vital Signs Nursing Vital Signs: Initial Vital Signs Temperature 97.6 F 01/31/24 08:38 Pulse Rate 94 H 01/31/24 08:38 Blood Pressure 126/83 01/31/24 08:38 O2 Sat by Pulse Oximetry 100 01/31/24 08:38 Pain Scale Pain Intensity 0 - Physical Exam General Appearance: mild distress, alert, lethargy, obese Eye Exam: PERRL/EOMI, eyes nml inspection Ears, Nose, Throat Exam: normal ENT inspection, moist mucous membranes Neck Exam: normal inspection, non-tender, supple, full range of motion Respiratory Exam: respiratory distress (Mild), airway intact, crackles/rales (Bilateral diffuse) Cardiovascular Exam: regular rate/rhythm, normal heart sounds, normal peripheral pulses Gastrointestinal/Abdomen Exam: soft, normal bowel sounds, No tenderness Rectal Exam: not done Back Exam: normal inspection Extremity Exam: normal range of motion, pelvis stable, other (There is evidence of upper extremity edema. Bilateral lower extremities are wrapped from the toes to the knee level. There is a right upper extremity PICC line in place) Neurologic Exam: confusion, other (Patient is confused. He is moving all his extremities but not necessarily to commands) Skin Exam: other Lymphatic Exam: No adenopathy (The above) O2 Delivery: Nasal Cannula (Oxygen supplementation) - Course Nursing assessment & vital signs reviewed: Yes EKG Interpreted by Me: RATE (94), Sinus Rhythm, Other (Multiforme PVCs. QTc 431. No acute ischemic changes.) Ordered Tests: Active Orders 24 hr Category Date Time Status Fitness Director STAT Care 01/31/24 09:33 Active EKG-ER Only STAT Care 01/31/24 09:32 Active IV Insertion STAT Care 01/31/24 08:43 Active POCT Glucose Check STAT Care 01/31/24 08:43 Active Pulse Oximetry (ED) STAT Care 01/31/24 08:43 Active CHEST 1 VIEW (PORTABLE) Stat Exams 01/31/24 10:00 Completed HEAD WITHOUT CONTRAST [CT] Stat Exams 01/31/24 09:44 Completed CBC W DIFF Stat Lab 01/31/24 09:20 Completed CMP Stat Lab 01/31/24 09:20 Completed MAGNESIUM Stat Lab 01/31/24 09:20 Completed NT PRO BNPII Stat Lab 01/31/24 09:20 Completed TROPONIN Q4H Lab 01/31/24 09:45 Completed TROPONIN Q4H Lab 01/31/24 13:45 Ordered TROPONIN Q4H Lab 01/31/24 17:45 Ordered Medication Summary Discontinued Medications Generic Name Dose Route Start Last Admin Trade Name Freq PRN Reason Stop Dose Admin Bumetanide 2 mg 01/31/24 10:58 01/31/24 11:04 Bumetanide 0.25 Mg/Ml 4ml Vial IV 01/31/24 10:59 2 mg STAT STA Administration Bumetanide Confirm 01/31/24 11:01 Bumetanide 0.25 Mg/Ml 4ml Vial Administered 01/31/24 11:02 Dose 2 mg .ROUTE .STK-MED ONE Dextrose Confirm 01/31/24 09:03 Dextrose 50%-Water 50 Ml Abboject Administered 01/31/24 09:04 Dose 50 ml IV .STK-MED ONE Dextrose 50 ml 01/31/24 09:15 01/31/24 09:16 Dextrose 50%-Water 50 Ml Abboject IV 01/31/24 09:16 50 ml STAT ONE Administration Lab/Rad Data: Laboratory Result Diagrams 01/31/24 09:20 01/31/24 09:20 Laboratory Results 01/31/24 01/31/24 01/31/24 Range/Units 09:45 09:20 09:20 WBC 6.7 (4.23-9.07) x10^3/uL RBC 2.69 L (4.63-6.08) x10^6/uL Hgb 7.8 L (13.7-17.5) g/dL Hct 24.7 L (40.1-51.0) % MCV 91.8 (79.0-92.2) fL MCH 29.0 (25.7-32.2) pg MCHC 31.6 L (32.3-36.5) g/dL RDW 18.0 H (11.6-14.4) % Plt Count 58 L (163-337) x10^3/uL MPV 11.5 (9.4-12.4) fL Gran % 90.1 H (34.0-67.9) % Immature Gran % (Auto) 0.3 (0.001-0.429) % Nucleat RBC Rel Count 0.0 (0.00-0.2) % Eos # (Auto) 0.03 L (0.04-0.54) x10^3/uL Immature Gran # (Auto) 0.02 (0.001-0.031) x10^3u/L Absolute Lymphs (auto) 0.33 L (1.32-3.57) x10^3/uL Absolute Monos (auto) 0.27 L (0.30-0.82) x10^3/uL Absolute Nucleated RBC 0.00 (0.00-0.012) x10^3u/L Lymphocytes % 4.9 L (21.8-53.1) % Monocytes % 4.0 L (5.3-12.2) % Eosinophils % 0.4 L (0.8-7.0) % Basophils % 0.3 (0.2-1.2) % Absolute Granulocytes 6.03 H (1.78-5.38) x10^3/uL Basophils # 0.02 (0.01-0.08) x10^3/uL Sodium 138 (135-145) mmol/L Potassium 5.8 H (3.5-5.1) mmol/L Chloride 110 H (98-107) mmol/L Carbon Dioxide 18 L (22-30) mmol/L Anion Gap 16.2 H (5-15) MEQ/L BUN 39 H (9-20) mg/dL Creatinine 2.23 H (0.66-1.25) mg/dL Estimated GFR 27.8 ML/MIN Glucose 126 H (74-106) mg/dL Calcium 9.1 (8.4-10.2) mg/dL Magnesium 2.4 H (1.6-2.3) mg/dL Total Bilirubin 1.00 (0.2-1.3) mg/dL AST 35 (17-59) U/L ALT 28 (0-50) U/L Alkaline Phosphatase 69 (38-126) U/L Troponin I 0.057 H* (0.000-0.033) ng/mL NT-Pro-B Natriuret Pep 76989 (<300) pg/mL Serum Total Protein 6.4 (6.3-8.2) g/dL Albumin 3.2 L (3.5-5.0) g/dL - Progress Progress: improved Progress Note: 01/31/24 09:43 My medical decision making of the assignment of moderate to high complexity is based on review of the patient's past medical history, review of the patient's medication list, review patient drug allergy list, history present illness and physical findings on examination. The workup in this patient includes placement of an intravenous line, [id number] glucose level, CBC, CMP, BNP, troponin level, CT scan of the head, urinalysis, twelve-lead EKG, chest x-ray. Differential diagnosis includes but is not limited to pneumonia, COPD exacerbation, CHF exacerbation, CVA, hypoglycemia, electrolyte abnormalities, dehydration 01/31/24 11:02 I interpreted the patient's laboratory data results. Based on the laboratory data results, patient has CHF exacerbation with a 60,000 BNP level, he also was hypoglycemic upon arrival to the emergency department, his renal function shows chronic renal disease. He also has elevated troponin level which is likely right heart strain. Chest x-ray was interpreted by the radiologist and I reviewed the impression The impression states there are radiographic features favoring CHF. There is moderate bibasilar pleural effusions and enlarged heart. Superimposed pneumonia not excluded. CT scan of the head without contrast was interpreted by the radiologist and I reviewed the impression. The impression states nonacute senile brain with small old left cerebellar infarct. 01/31/24 11:04 This patient has several organ systems involved that are at least moderate complexity. He has CHF, elevated troponin level, pleural effusions, chronic renal disease and hypoglycemia. I spoke with the patient's daughter as I believe this patient would be best served being transferred to a facility that can offer this patient to higher level care with the specialists that we do not have. 01/31/24 12:01 Spoke with Chela at the [facility] transfer center. I reviewed the histo ry, presenting complaint, physical findings on examination and the workup results. She accepts the patient on behalf of of Dr. Joesph Cox who is the emergency room physician at this time at their facility. Counseled pt/family regarding: lab results, diagnosis, rad results Medical Desision Making - Independent Historian Additional History obtained from: Family - Diagnostic Testing Diagnostic test were ordered, analyzed, and reviewed by me: Yes Radiological Interpretation: Reviewed by me, Teleradiologist Report - Risk of complications The pt has a high risk of morbidity or mortality based on: Decision regarding hospitilization or escalation of hosp level of care - Departure Departure Disposition: Transfer Clinical Impression: CHF exacerbation, Confusion, Elevated troponin, Chronic renal disease, Hypoglycemia, Hypoxia Condition: Fair Critical Care Time: Yes Critical Care Time(excluding separately billable procedures): Critical 30-74 mins (45) Referrals: [facility] [Primary Care Provider] - Follow up/PCP as directed Instructions: Heart Failure
[2024-01-31] MEDS ORDERED: D50W 50 ml Abboject IV ONE (09:03)
[2024-01-31 09:12] VITALS: TEMP 97.6
[2024-01-31] MEDS: D50W 50 ml Abboject IV ONE (09:16)
[2024-01-31 09:28] LABS: Absolute Neutrophil Ct (ANC) 6.03 x10^3/uL (1.78-5.38); BASOPHIL % 0.3 % (0.2-1.2); Basophil (Absolute #) 0.02 x10^3/uL (0.01-0.08); Eosinophil % 0.4 % (0.8-7.0); Eosinophil (Absolute #) 0.03 x10^3/uL (0.04-0.54); Hematocrit 24.7 % (40.1-51.0); Hemoglobin 7.8 g/dL (13.7-17.5); IMMATURE GRAN # 0.02 x10^3u/L (0.001-0.031); IMMATURE GRAN % 0.3 % (0.001-0.429); Lymphocyte (Absolute #) 0.33 x10^3/uL (1.32-3.57); Lymphocytes % 4.9 % (21.8-53.1); Mean Cell Volume 91.8 fL (79.0-92.2); Mean Corpuscular Hgb Concent. 31.6 g/dL (32.3-36.5); Mean Platelet Volume 11.5 fL (9.4-12.4); Monocyte (Absolute #) 0.27 x10^3/uL (0.30-0.82); Neutrophil % 90.1 % (34.0-67.9); Platelet Count 58 x10^3/uL (163-337); Red Blood Count 2.69 x10^6/uL (4.63-6.08); White Blood Count 6.7 x10^3/uL (4.23-9.07)
[2024-01-31 09:53] LABS: ALBUMIN 3.2 g/dL (3.5-5.0); ANION GAP 16.2 MEQ/L (5-15); Calcium 9.1 mg/dL (8.4-10.2); Creatinine 1 2.23 mg/dL (0.66-1.25); EST GLOMERULAR FILTRATION RATE 27.8 ML/MIN; MAGNESIUM 2.4 mg/dL (1.6-2.3); Potassium 5.8 mmol/L (3.5-5.1); Total Protein 6.4 g/dL (6.3-8.2)
--- NOTE | 2024-01-31 10:10 | XRAY ---
Indication: Short of breath. CHF. Comparison: January 25, 2024 Portable chest again demonstrates moderate bibasilar effusion/atelectasis minimally improved. Heart remains enlarged again with right arm PICC line. No new cardiopulmonary abnormalities. Impression: Again radiographic features favoring cardiac decompensation/CHF, minimally improved. Superimposed pneumonia not completely excluded.
--- NOTE | 2024-01-31 10:50 | XRAY ---
Indication: Confusion. Multiple contiguous axial images obtained through the head without contrast. Comparison: January 18, 2024 Again age-appropriate global atrophy, mild periventricular degenerative micro-ischemia bilaterally, and small focus old infarct left cerebellum. No acute intracranial hemorrhage, abnormal extra-axial fluid collection, or mass effect. Fourth ventricle is midline without hydrocephalus. Bony calvarium intact. Visualized paranasal sinuses and mastoid air cells are clear. 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
[2024-01-31] MEDS ORDERED: BUMEX 1 MG ONE (11:01)
[2024-01-31] MEDS: BUMEX 1 MG IV STA (11:04)
[2024-01-31 12:09] VITALS: O2SAT 99
--- NOTE | 2024-01-31 13:09 | PCM.CONS ---
Podiatry HPI - Consult Date of Consultation Date: 01/31/24 Reason for Consult: F/u s/p amputation left 1st ray, abductor hallucis muscle flap, delayed closure of wound left foot. DOS 01/25/2024 POD #6 Consulting Provider: KALLIE HAYES DPM - [facility] History of Present Illness: Mr. 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 Patient has had a complicated post operative course with acute blood loss for which he was provided transfusion and briefly returned to baseline. He at this time has been off of his diuretics for the last week since discharge and has showed signs of worsening congestive heart failure. Patient at this time is awaiting transfer given level of care required. Family has requested we see him prior to discharge to assess progression of his venous insufficiency and healing of the amputation site. Medications & Allergies Home Medications: Home Medication List Citalopram Hydrobromide [Celexa] 20 mg PO DAILY 02/22/19 [History Confirmed 01/31/24] Ferrous Sulfate [Iron] 325 mg PO TID 02/22/19 [History Confirmed 01/31/24] Insulin Aspart [Novolog] 0 unit SQ TIDWMEALS 02/22/19 [History Confirmed 01/18/24] Insulin Glargine [Lantus Insulin] 18 unit SQ 1800 02/22/19 [History Confirmed 01/31/24] Rivaroxaban [Xarelto] 2.5 mg PO BID 10/17/21 [History Confirmed 01/31/24] Lactobacillus Acidophilus [Acidophilus TABLET] 1 tab PO BID 09/30/22 [History Confirmed 01/31/24] Levothyroxine Sodium [Synthroid] 25 mcg PO DAILY 09/30/22 [History Confirmed 01/31/24] Potassium Chloride 30 meq PO TID 09/30/22 [History Confirmed 01/31/24] Aspirin EC 81 mg [Ecotrin 81 mg] 81 mg PO DAILY 12/09/22 [History Confirmed 01/31/24] Tamsulosin HCl 0.4 mg [Flomax 0.4 MG] 0.4 mg PO HS 12/09/22 [History Confirmed 01/31/24] Ergocalciferol (Vitamin D2) [Drisdol] 50,000 mcg PO WEEKLY 07/15/23 [History Confirmed 01/31/24] Insulin Lispro [Humalog] 6 unit SQ TIDWMEALS 01/18/24 [History Confirmed 01/31/24] Latanoprost [Xalatan] 1 drop DROPS HS 01/18/24 [History Confirmed 01/31/24] Linezolid [Zyvox] 600 mg PO BID 14 Days tablet 01/27/24 [Rx Confirmed 01/31/24] Loperamide HCl 2 mg [Imodium 2 mg] 2 mg PO PRN PRN cap 01/27/24 [Rx Confirmed 01/31/24] Pantoprazole 20 mg [Protonix 20MG Tablet] 20 mg PO DAILY tablet 01/27/24 [Rx Confirmed 01/31/24] Cefepime HCl 1 gm [Maxipime 1 gm] 1 g IV Q24H10 01/31/24 [History Confirmed 01/31/24] Furosemide 20 mg [Lasix 20 mg] 60 mg PO BID 01/31/24 [History Confirmed 01/31/24] Allergies/Adverse Reactions: Allergies Allergy/AdvReac Type Severity Reaction Status Date / Time sulfamethoxazole Allergy Intermediate Swelling Verified 01/18/24 11:43 [From Bactrim] trimethoprim [From Bactrim] Allergy Intermediate Swelling Verified 01/18/24 11:43 Sulfa (Sulfonamide AdvReac Intermediate Swelling Verified 01/18/24 11:43 Antibiotics) quetiapine [From Seroquel] AdvReac RESPIRATORY Verified 01/18/24 19:17 DEPRESSION - Past Medical History Past Medical History: Yes Neurological History: Stroke ENT History: No Pertinent History Cardiac History: Congestive Heart Failure, High Cholesterol, Hypertension, Myocardial Infarction ([place]) Respiratory History: No Pertinent History Endocrine Medical History: Diabetes Type II Musculoskelatal History: Arthritis GI Medical History: No Pertinent History History: Renal Disease Pyscho-Social History: No Pertinent History Male Reproductive Disorders: No Pertinent History Comment: CVA 2006 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%", fall injuring jordon hands - Past Surgical History Past Surgical History: Yes Neuro Surgical History: No Pertinent History Cardiac History: Cardiac Catheterization, Other Respiratory Surgery: No Pertinent History GI Surgical History: No Pertinent History Genitourinary Surgical Hx: No Pertinent History Musculskeletal Surgical Hx: No Pertinent History, Orthopedic Surgery Male Surgical History: No Pertinent History Other Surgical History: Callus removed from ball of right foot; 2ND DIGIT RIGHT FOOT REMOVED, transmetatarsal right amputation, BLE stents - Social History Smoking Status: Never smoker Exposure to second hand smoke: No Alcohol: None Drug Use: none - Social Determinants of Health Will the patient participate in the screening: Declined to provide Physical Exam - Narrative Narrative Physical Exam: Podiatry Physical Exam Results - Labs Lab/Micro Results: Lab Results-Last 24 Hours 01/31/24 01/31/24 01/31/24 Range/Units 09:20 09:20 09:45 WBC 6.7 (4.23-9.07) x10^3/uL RBC 2.69 L (4.63-6.08) x10^6/uL Hgb 7.8 L (13.7-17.5) g/dL Hct 24.7 L (40.1-51.0) % MCV 91.8 (79.0-92.2) fL MCH 29.0 (25.7-32.2) pg MCHC 31.6 L (32.3-36.5) g/dL RDW 18.0 H (11.6-14.4) % Plt Count 58 L (163-337) x10^3/uL MPV 11.5 (9.4-12.4) fL Gran % 90.1 H (34.0-67.9) % Immature Gran % (Auto) 0.3 (0.001-0.429) % Nucleat RBC Rel Count 0.0 (0.00-0.2) % Eos # (Auto) 0.03 L (0.04-0.54) x10^3/uL Immature Gran # (Auto) 0.02 (0.001-0.031) x10^3u/L Absolute Lymphs (auto) 0.33 L (1.32-3.57) x10^3/uL Absolute Monos (auto) 0.27 L (0.30-0.82) x10^3/uL Absolute Nucleated RBC 0.00 (0.00-0.012) x10^3u/L Lymphocytes % 4.9 L (21.8-53.1) % Monocytes % 4.0 L (5.3-12.2) % Eosinophils % 0.4 L (0.8-7.0) % Basophils % 0.3 (0.2-1.2) % Absolute Granulocytes 6.03 H (1.78-5.38) x10^3/uL Basophils # 0.02 (0.01-0.08) x10^3/uL Sodium 138 (135-145) mmol/L Potassium 5.8 H (3.5-5.1) mmol/L Chloride 110 H (98-107) mmol/L Carbon Dioxide 18 L (22-30) mmol/L Anion Gap 16.2 H (5-15) MEQ/L BUN 39 H (9-20) mg/dL Creatinine 2.23 H (0.66-1.25) mg/dL Estimated GFR 27.8 ML/MIN Glucose 126 H (74-106) mg/dL Calcium 9.1 (8.4-10.2) mg/dL Magnesium 2.4 H (1.6-2.3) mg/dL Total Bilirubin 1.00 (0.2-1.3) mg/dL AST 35 (17-59) U/L ALT 28 (0-50) U/L Alkaline Phosphatase 69 (38-126) U/L Troponin I 0.057 H* (0.000-0.033) ng/mL NT-Pro-B Natriuret Pep 18854 (<300) pg/mL Serum Total Protein 6.4 (6.3-8.2) g/dL Albumin 3.2 L (3.5-5.0) g/dL Accuchecks Date 01/31/24 Time 09:00 - Radiology Impressions Radiology Exams & Impressions: Radiology Procedures Category Date Time Status CHEST 1 VIEW (PORTABLE) Stat Exams 01/31/24 10:00 Completed HEAD WITHOUT CONTRAST [CT] Stat Exams 01/31/24 09:44 Completed Assessment/Plan (1) Osteomyelitis due to type 2 diabetes mellitus Current Visit: Yes Status: Acute Assessment & Plan: Definitive bone biopsies obtained demonstrating acute OM on index procedure Awaiting clean margins to help navigate on going post operative course at this time. Will continue with therapy as prescribed on d/c Code(s): E11.69 - TYPE 2 DIABETES MELLITUS WITH OTHER SPECIFIED COMPLICATION; M86.9 - OSTEOMYELITIS, UNSPECIFIED (2) CHF exacerbation Current Visit: Yes Status: Acute Assessment & Plan: transfer to [place] for exacerbation of CHF Code(s): I50.9 - HEART FAILURE, UNSPECIFIED (3) Chronic renal disease Current Visit: Yes Status: Acute Assessment & Plan: Consult Guarav Code(s): N18.9 - CHRONIC KIDNEY DISEASE, UNSPECIFIED (4) Confusion Current Visit: Yes Status: Acute Code(s): R41.0 - DISORIENTATION, UNSPECIFIED (5) Elevated troponin Current Visit: Yes Status: Acute Code(s): R79.89 - OTHER SPECIFIED ABNORMAL FINDINGS OF BLOOD CHEMISTRY (6) Acute on chronic renal failure Current Visit: No Status: Acute Qualifiers: Chronic kidney disease stage: stage 3 (moderate) Code(s): N17.9 - ACUTE KIDNEY FAILURE, UNSPECIFIED; N18.9 - CHRONIC KIDNEY DISEASE, UNSPECIFIED (7) Anemia Current Visit: No Status: Acute Code(s): D64.9 - ANEMIA, UNSPECIFIED (8) CHF (congestive heart failure) Current Visit: No Status: Acute Code(s): I50.9 - HEART FAILURE, UNSPECIFIED (9) Cellulitis Current Visit: No Status: Acute Qualifiers: Site of cellulitis: extremity Site of cellulitis of extremity: lower extremity Assessment & Plan: Improved significantly Code(s): L03.90 - CELLULITIS, UNSPECIFIED (10) Swelling of right upper extremity Current Visit: No Status: Acute Code(s): M79.89 - OTHER SPECIFIED SOFT TISSUE DISORDERS (11) Venous insufficiency of both lower extremities Current Visit: No Status: Acute Assessment & Plan: Bilateral unna boots for fluid overload secondary to worsening congestive heat failure Wounds dressed with medihoney adaptic iodine 4x4 unnaboot kerlix and coban Code(s): I87.2 - VENOUS INSUFFICIENCY (CHRONIC) (PERIPHERAL) (12) Diabetes type 2, controlled Current Visit: No Status: Chronic Qualifiers: Code(s): E11.9 - TYPE 2 DIABETES MELLITUS WITHOUT COMPLICATIONS (13) Wound of left foot Current Visit: No Status: Chronic Code(s): S91.302A - UNSPECIFIED OPEN WOUND, LEFT FOOT, INITIAL ENCOUNTER
[2024-01-31 13:47] VITALS: BP 126/66; PULSE 80; RESP 16
== END 2024-01-31 13:40 | disposition short-term general hospital (02) ==
LOC: ED 08:34
DX: I13.0 Hypertensive heart and chronic kidney disease with heart failure and stage 1 through stage 4 chronic kidney disease, or unspecified chronic kidney disease (principal); I50.9 Heart failure, unspecified; E11.22 Type 2 diabetes mellitus with diabetic chronic kidney disease; N18.9 Chronic kidney disease, unspecified; R41.0 Disorientation, unspecified; R77.8 Other specified abnormalities of plasma proteins; E11.649 Type 2 diabetes mellitus with hypoglycemia without coma; R09.02 Hypoxemia; Z79.01 Long term (current) use of anticoagulants; Z79.4 Long term (current) use of insulin; Z79.899 Other long term (current) drug therapy
CPT/HCPCS: 36415; 70450; 71045; 80053; 83735; 83880; 84484; 85025; 93005; 93041; 94760; 96374; 96375; 99284; 99285; 99291